=== PATIENT | male | born 1960 | race Caucasian/White ===

== ENCOUNTER → 2017-08-13 09:25 | Outpatient (CLI) | payer BC, SELFPAY | PROVIDERS: Family Provider Family Medicine; PCP Family Medicine; Visit Provider Family Medicine | DX: A09 Infectious gastroenteritis and colitis, unspecified (principal) | CPT/HCPCS: 87506 ==

== ENCOUNTER → 2017-09-10 08:48 | Outpatient (CLI) | payer BC, SELFPAY ==
[2017-09-10 10:23] LABS: Cholesterol 120 mg/dL (200); High Density Lipoprotein 43 mg/dL; PSA,Total - Annual Screen 1.34 ng/mL (0.00-4.00); Triglycerides 91 mg/dL; Very Low Density Lipoprotein 18 mg/dL (5-40)
== END ==
PROVIDERS: Family Provider Family Medicine; PCP Family Medicine; Visit Provider Family Medicine
DX: E78.00 Pure hypercholesterolemia, unspecified (principal); Z12.5 Encounter for screening for malignant neoplasm of prostate
CPT/HCPCS: 36415; 80061; 84153; G0103

== ENCOUNTER → 2018-10-09 08:04 | Outpatient (CLI) | payer BC, SELFPAY ==
[2017-09-14 14:00] VITALS: BMI 25.9
[2018-10-09 10:29] LABS: Anion Gap 4 (5-15); BUN 21 mg/dL (7-18); BUN/Creat Ratio 18.9 RATIO (10-20); Calcium,Total 8.6 mg/dL (8.5-10.1); Chloride 108 mmol/L (98-107); Cholesterol 121 mg/dL (200); Creatinine, Serum 1.11 mg/dL (0.70-1.30); EST Glomerular Filtration Rate 72 mL/min (>60); Est Glom Filt Rate - Afr Amer 87 mL/min (>60); Glucose 97 mg/dL (74-106); High Density Lipoprotein 42 mg/dL; Potassium 4.1 mmol/L (3.5-5.1); Sodium Level 139 mmol/L (136-145); Triglycerides 64 mg/dL; Very Low Density Lipoprotein 13 mg/dL (5-40)
== END ==
PROVIDERS: Family Provider Family Medicine; PCP Family Medicine; Referring Provider Family Medicine; Visit Provider Family Medicine
DX: I25.10 Atherosclerotic heart disease of native coronary artery without angina pectoris (principal); E78.00 Pure hypercholesterolemia, unspecified; Z12.5 Encounter for screening for malignant neoplasm of prostate
CPT/HCPCS: 36415; 80048; 80061; 84153; G0103

== ENCOUNTER → 2018-12-27 10:50 | Outpatient (CLI) | payer BC, SELFPAY ==
[2018-12-16 14:39] VITALS: BMI 26.4
--- NOTE | 2018-12-27 10:51 | STEWCON_ITS ---
Reason For Study: CAD Stress Results Protocol: Eric Protocol Maximum Predicted HR: 160 bpm Target HR: 136 bpm % Maximum Predicted HR: 83 % DurationHeart Rate Stage (mm:ss) (bpm) BP Comment Baseline 57 104/60No Chest Pain; Diluted Definity 3 ML Given Eric Protocol Stage I 3:00 76 118/60No Chest Pain Eric Protocol Stage II 3:00 97 126/62No Chest Pain Eric Protocol Stage III 3:00 116 134/60No Chest Pain Eric Protocol Stage IV 3:00 133 148/62No Chest Pain; Fatigue Recovery 80 104/60No Chest Pain Stress Duration: 12:00 mm:ss Maximum Stress HR: 133 bpm METS: 13 Baseline Echocardiogram Findings The estimated ejection fraction is 65 %. Stress Echo Wall motion Data Resting WM Intermediate WM Stress WM Resting Wall Motion Wall Motion Stress No regional wall motion No regional wall motion abnormalities noted. abnormalities noted. EKG Data The baseline ECG displays normal sinus rhythm. The patient exercised according to the regular Eric protocol for a total duration of 12:00. The maximum heart rate attained was 134 beats per minute. This was 83% of maximum predicted heart rate. The patient exercised into stage 5 of the Eric protocol. At peak exercise, upsloping ST changes only were noted, which did not meet the criteria for ischemia. No clinical angina was noted. No arrhythmias noted. Interpretation Summary The estimated ejection fraction is 65 %. Normal, adequate, treadmill echocardiogram. Negative for ischemia by EKG and echocardiographic criteria. No anginal symptoms noted. No arrhythmias noted. Appropriate blood pressure response to exercise. Above average exercise capacity for age. Decreased sensitivity due to poor echo windows requiring Definity agent. Final LVEF is 75%. Test terminated due to fatigue. No complications. The study was technically difficult. Contrast injection was performed. Ordering Physician: Nilson Rashid Referring Physician: Pedrito Ceballos Performed By: Romina Mcfadden, MAMADOU, RVT
== END ==
PROVIDERS: Family Provider Family Medicine; PCP Family Medicine; Referring Provider Internal Medicine Cardiovascular Disease; Visit Provider Internal Medicine Cardiovascular Disease
DX: I25.10 Atherosclerotic heart disease of native coronary artery without angina pectoris (principal); I25.5 Ischemic cardiomyopathy; E78.5 Hyperlipidemia, unspecified; I25.2 Old myocardial infarction; Z95.5 Presence of coronary angioplasty implant and graft
CPT/HCPCS: 93017; 93350; Q9957; A4216; C8928

== ENCOUNTER → 2019-01-10 12:56 | Outpatient (CLI) | payer BC, SELFPAY ==
[2018-12-16 14:39] VITALS: BMI 26.4
--- NOTE | 2019-01-10 12:58 | ECHOD_ITS ---
Reason For Study: CAD/ASHD Procedure This was a 2D Doppler, Color Flow transthoracic echocardiogram. Exam performed in department. Left Ventricle Normal size and thickness. The estimated ejection fraction is 65 %. Normal diastology for age. No regional wall motion abnormalities noted. Right Ventricle Mildly dilated right ventricle. Normal systolic function. Atria Normal left atrium. Normal right atrium. Normal atrial septum. Mitral Valve The mitral valve is structurally normal. No prolapse or stenosis seen. Tricuspid Valve Normal tricuspid valve. Unable to estimate RV systolic pressure due to insufficient tricuspid regurgitant envelope. Aortic Valve Trisinus/trileaflet aortic valve. Mild focal aortic valve thickening. Mild aortic stenosis. Peak aortic valve gradient 17 mmHg. Mean aortic valve gradient 7 mmHg. Calculated aortic valve area (continuity equation) is 2.3 cm2. Trivial aortic valve insufficiency. Pulmonic Valve Normal pulmonic valve. Great Vessels Normal aortic root. Normal arch. Normal inferior vena cava. Inferior vena cava collapse with sniff. Pericardium/Pleural No pericardial effusion. MMode/2D Measurements & Calculations LVIDd: 4.8 cm IVSd: 0.97 cm LVOT diam: 2.1 cm LVIDs: 2.6 cm LVPWd: 1.1 cm LVOT area: 3.6 cm2 RVDd: 3.9 cm FS: 46.5 % Ao root diam: 4.4 cm LAV(MOD-bp): 53.0 ml LA A4 area: 17.8 cm2 LA dimension: 3.7 cm LAV(MOD-bp) Indexed: 26.0 ml/m2 LAV(MOD-sp2): 56.3 ml LAV(MOD-sp4): 49.2 ml RA A4 area: 18.0 cm2 Time Measurements MV dec time: 0.29 sec Doppler Measurements & Calculations MV E max lio: 74.0 cm/sec Lat Peak E' Lio: 11.6 cm/sec Med Peak E' Lio: 8.6 cm/sec MV A max lio: 60.4 cm/sec E/E' lat: 6.4 E/E' med: 8.6 MV E/A: 1.2 MV V2 max: 80.9 cm/sec MV P1/2t max lio: 83.8 cm/sec Ao V2 max: 206.7 cm/sec MV max P.6 mmHg MV P1/2t: 95.9 msec Ao max P.1 mmHg MV V2 mean: 45.2 cm/sec MV dec slope: 255.8 cm/sec2 Ao V2 mean: 126.0 cm/sec MV mean P.93 mmHg Ao mean P.4 mmHg MV V2 VTI: 27.0 cm MVA(P1/2t): 2.3 cm2 Ao V2 VTI: 38.9 cm MVA(VTI): 3.4 cm2 SAMMIE(I,D): 2.3 cm2 SAMMIE(V,D): 1.8 cm2 AI max lio: 421.2 cm/sec LV V1 max: 101.6 cm/sec SV(LVOT): 90.7 ml AI max P.0 mmHg LV V1 max P.1 mmHg LV V1 mean P.3 mmHg AI dec slope: 135.6 cm/sec2 LV V1 mean: 71.5 cm/sec AI P1/2t: 909.7 msec LV V1 VTI: 25.1 cm PA V2 max: 97.1 cm/sec Interpretation Summary The estimated ejection fraction is 65 %. Normal diastology for age. Mildly dilated right ventricle. Unable to estimate RV systolic pressure due to insufficient tricuspid regurgitant envelope. Mild focal aortic valve thickening. Mild aortic stenosis. Trivial aortic valve insufficiency. Compared to echo report dated 01/01/2017, no appreciable changes noted. Ordering Physician: Nilson Rashid Referring Physician: Pedrito Ceballos Performed By: James Paiz RCS
== END ==
PROVIDERS: Family Provider Family Medicine; PCP Family Medicine; Referring Provider Internal Medicine Cardiovascular Disease; Visit Provider Internal Medicine Cardiovascular Disease
DX: I25.10 Atherosclerotic heart disease of native coronary artery without angina pectoris (principal); I25.5 Ischemic cardiomyopathy; I25.2 Old myocardial infarction; Z95.5 Presence of coronary angioplasty implant and graft
CPT/HCPCS: 93306

== ENCOUNTER → 2019-10-16 08:11 | Outpatient (CLI) | payer BC, SELFPAY ==
[2018-12-16 14:39] VITALS: BMI 26.4
[2019-10-16 10:25] LABS: ALB/GLOB Ratio 1.2 RATIO (0.9-2.4); AST(SGOT) 28 U/L (15-37); Alanine Aminotransfer ALT/SGPT 33 U/L (16-61); Albumin, Serum 3.9 g/dL (3.2-5.0); Alkaline Phosphatase 68 U/L (45-117); Anion Gap 6 (5-15); BUN 23 mg/dL (7-18); BUN/Creat Ratio 22.5 RATIO (10-20); Chloride 105 mmol/L (98-107); Cholesterol 131 mg/dL (200); Creatinine, Serum 1.02 mg/dL (0.70-1.30); EST Glomerular Filtration Rate 79 mL/min (>60); Est Glom Filt Rate - Afr Amer 95 mL/min (>60); Globulin 3.2 g/dL (2.2-4.2); Glucose 90 mg/dL (74-106); High Density Lipoprotein 43 mg/dL; PSA,Total - Annual Screen 1.71 ng/mL (0.00-4.00); Protein, Total 7.1 g/dL (6.4-8.2); Sodium Level 141 mmol/L (136-145); Triglycerides 66 mg/dL; Very Low Density Lipoprotein 13 mg/dL (5-40)
== END ==
PROVIDERS: PCP Family Medicine; Referring Provider Family Medicine; Visit Provider Family Medicine
DX: I25.10 Atherosclerotic heart disease of native coronary artery without angina pectoris (principal); Z12.5 Encounter for screening for malignant neoplasm of prostate
CPT/HCPCS: 36415; 80053; 80061; 84153; G0103

== ENCOUNTER → 2020-04-29 15:08 | Outpatient (CLI) | payer BC, SELFPAY ==
--- NOTE | 2020-04-29 15:11 | RAD_ITS ---
STUDY: X-RAY - LUMBAR SPINE REASON FOR EXAM: Male, 60 years old. recent right leg numbness TECHNIQUE: 5 view(s) of the lumbar spine were obtained. COMPARISON: Prior thoracic spine of 09/04/2016 FINDINGS: Normal lumbar lordosis. Slight dextrocurvature. There is a normal alignment of the vertebrae. 12 thoracic vertebral bodies and 12 normal ribs as demonstrated on prior imaging. Rudimentary ribs at L1. 5 normal lumbar vertebral bodies and a transitional first sacral segment. The S1-S2 disc is rudimentary. Negative for fracture, osteolytic or blastic bone lesion. Mild disc narrowing and mild disc narrowing at L2-3 and L3-4. Moderate disc narrowing at L4-5 and L5-S1. Facet arthrosis primarily at L4-5 and L5-S1. Small age type calcifications to the left of the upper lumbar spine. RAD/L/S Spine Min 4 Views IMPRESSION: Slight dextrocurvature of the lumbar spine with otherwise normal alignment. Negative for fracture, osteolytic or blastic bone lesion. Degenerative disc and joint changes as stated above which are moderately advanced at L4-5 and L5-S1. Facet arthrosis primarily at the same levels. Few small eggshell calcifications to the left of the upper lumbar spine of uncertain etiology. These are not typical of renal stones. Possibly vascular, mesenteric or lymph node calcifications. Electronically Signed: Lashawn Camarillo MD at 0:00 EST , Service support ,
== END ==
PROVIDERS: PCP Family Medicine; Referring Provider Family Medicine; Visit Provider Family Medicine
DX: M54.40 Lumbago with sciatica, unspecified side (principal)
CPT/HCPCS: 72110

== ENCOUNTER 2020-05-19 08:30 | Outpatient (RCR) | payer BC, SELFPAY ==
--- NOTE | 2020-05-04 14:00 | HP.PTEVAL ---
Patient's Visit Information WATSON RODRIGUEZ is a 60 year old M referred to Physical Therapy by Dr. Tito Hill MD with a diagnosis of R leg numbness and weakness. Date of Evaluation: 05/04/20 Physical Therapist: Rene Hurtado, DPT, OCS, CSCS - Visit Plan Frequency: 2x /Week Duration: 4-6 Weeks Plan: 2x/week for 4-6 weeks for Charity as helpful and core strength. Monitor r DF and HS strength for improvmeents as wella s LB ROM and subjective. May need to modify HEP to more flexion depending on progress with HEP and steriods. May need MRI if myeopathies not improved in two weeks. - Subjective About two weeks ago had massage and was super aggressive to upper back. The next day he moved some stones shovelling. 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 That evening he got out of chair and R leg was numb and unable to WB very well. Hobbled around the kitchen. No pain, just numb. Went to chiropractor Sunday and Dr. Hill on Sunday. He did evaluation and found R leg weakness. Doctor thought bulging disc and pinched nerve with DDD. X ray showed mild DD. Had spina Bifida [place] when he was little but no problems just has to be careful with lifting over his life. 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 Now has to be conscious of R LE as he feels like he has a dropfoot. No falls but has to pull R foot forward at times. 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 No time off . No problems prior to this issue. Works out at 3-4x/week and does cardio 30 minutes and has a adjunct trainer program for core and general strength. Sleep is OK. Not much pain. Numbness is improved from initial insult which lasted into night and was better the next day. Rates the leg at 8/10 first night and 5/10 now not pain but strength and normal feeling. - Objective Walks I and trasnfers without difficulty. L?S AROM ext max limited stiff, not painful, L SB slightly painful, R SB OK, Flexio is stiff in LB but near full. refelxes 3/3 R and clonus B in achilles 2/3 L. patella 2/3. R DF 46# and L is 80#. hip flexion 60 L and 51 R#. HS R 43# and 65 L. PPU seem to improve LB ext quickly, no symptoms changed today. - Goals Goal 1:: Full l/S AROM without pain Goal Time Frame: 4-6 Weeks Goal 2:: Pt show improved strength in R LE by 15 # in DF and HSC to make walking easier. Goal Time Frame: 4-6 Weeks Goal 3:: Pt feel 75% back to normal in R LE Goal Time Frame: 4-6 Weeks Goal 4:: I appropr HEP to minimize future problems Goal Time Frame: 4-6 Weeks - Rehabilitation Potential Physical Therapy Diagnosis: LB radiculopathy with weakness and sensation deficiits. Rehabilitation Potential: Fair - Anticipated Interventions Patient/Client Instruction: Educate patient on: Condition, Plan of Care For the Purpose of:: To decrease pain, To improve muscle performance and motor function Therapeutic Exercise to Include: Strength training, Flexibilty training, Dynamic Lumbar Stabilization, Charity Exercises For the Purpose of:: To decrease pain, To improve muscle performance and motor function, To increase tolerance to activity/condition/position, To improve ability of physical actions for home/community/work/leisure, To improve gait and locomotor functions Manual Therapy Techniques to Include: Mobilization For the Purpose of:: To increase ROM Thank you for the opportunity to evaluate your patient. For Medicare and Medicare HMO plans, please review the plan of care and approve it. It will need to be FAXED BACK to us at [phone] for Medicare purposes. For Medicare only, by signing this I certify the plan of care. Please let me know if there are questions or concerns regarding this plan of care. Physician Signature: Date:
--- NOTE | 2020-05-19 08:58 | HP.PTREVAL_ITS ---
Dr. Tito Hill MD, It has been my pleasure to treat WATSON RODRIGUEZ over the last 4 visits for R leg numbness and weakness. Please see the progress note below for an update on the physical therapy plan of care! Subjective: Been doing exercises. Not seeing improvements in strength. No real pain or discomfort. Steroid really helped pain and it has not been an issue. Still has numbness which is worse at night but constant overall. Pressups did not help and has been doing neutral spine strength whcijonathan is not heping the strength. Since steroid ended feels like he needs to be more conscious of R Leg walking adn lifting leg going up steps. Objective/Function: 38.5 R HS strength. 51 DF# R. These are still very weak c ompared to the left side adn no generally improved from day one. LB AROM ext is still stiff but not painful, flexion and SB are fulla dn painfree. Walking is normal but feels awkward to him with the numbness in R medial leg and need to focus on R LE for strength purposes. Recommend back to doctor for further evaluation Plan Plan: Pt to schedule with doctor for further evaluation/next medical step. Will hod chart open and pt to call after doctor visit in case therapy included in next step. Therapist recommend MRI to delineate nerve condition for what it is worth. Pt scheduled with doctor today. Goals Goal 1:: Full l/S AROM without pain Goal Time Frame: 4-6 Weeks Goal Progress: Goal Met Goal 2:: Pt show improved strength in R LE by 15 # in DF and HSC to make walking easier. Goal Time Frame: 4-6 Weeks Goal Progress: Not Progressing Goal 3:: Pt feel 75% back to normal in R LE Goal Time Frame: 4-6 Weeks Goal Progress: Not Progressing Goal 4:: I appropr HEP to minimize future problems Goal Time Frame: 4-6 Weeks Goal Progress: NS strength Anticipated Interventions Patient/Client Instruction: Educate patient on: Condition, Plan of Care For the Purpose of:: To decrease pain, To improve muscle performance and motor function Therapeutic Exercise to Include: Strength training, Flexibilty training, Dynamic Lumbar Stabilization, Bandar Exercises For the Purpose of:: To decrease pain, To improve muscle performance and motor function, To increase tolerance to activity/condition/position, To improve ability of physical actions for home/community/work/leisure, To improve gait and locomotor functions Manual Therapy Techniques to Include: Mobilization For the Purpose of:: To increase ROM Please do not hesitate to contact me at [phone] by phone or if you have questions or concerns regarding this new plan of care! Sincerely, Rene Hurtado, DPT, OCS, CSCS
--- NOTE | 2020-07-15 15:29 | HP.PTDCNRP_ITS ---
WATSON RODRIGUEZ was seen in my office for initial evaluation on 05/04/20. The following Plan of Care was established for this patient: Initial Frequency: 2x /Week Initial Duration: 4-6 Weeks Patient/Client Instruction: Educate patient on: Condition, Plan of Care For the Purpose of:: To decrease pain, To improve muscle performance and motor function Therapeutic Exercise to Include: Strength training, Flexibilty training, Dynamic Lumbar Stabilization, Bandar Exercises For the Purpose of:: To decrease pain, To improve muscle performance and motor function, To increase tolerance to activity/condition/position, To improve abili ty of physical actions for home/community/work/leisure, To improve gait and locomotor functions Manual Therapy Techniques to Include: Mobilization For the Purpose of:: To increase ROM This patient was last seen in our office 05/19/20. Pertinent comments regarding their Physical therapy will appear below: Pt seen 4 visits of POC and was not progressing appropriately. Was sent back to doctor for further evaluation. Was to call after that visit if needed further therapy. at this point, it has been about two months and I will discontinue due to nonattendance. At this point I will be discontinuing this patient from physical therapy. I would be happy to see this patient again in the future if found appropriate by the physician. Thank you! Rene Hurtado, DPT, OCS, CSCS
== END 2020-05-19 19:00 | disposition home or self-care (01) ==
LOC: PT 08:30
PROVIDERS: PCP Family Medicine; Referring Provider Family Medicine; Visit Provider Family Medicine
DX: R29.898 Other symptoms and signs involving the musculoskeletal system (principal); M21.371 Foot drop, right foot
CPT/HCPCS: 97110; 97162; 97164

== ENCOUNTER → 2020-05-24 11:51 | Outpatient (CLI) | payer BC, SELFPAY ==
--- NOTE | 2020-05-24 11:56 | MRI_ITS ---
STUDY: MRI LUMBAR SPINE WITHOUT CONTRAST REASON FOR EXAM: Male, 60 years old. Lumbago with sciatica -- pain low back and rt leg since mid april, shoveling injury TECHNIQUE: Standardized fat and water weighted pulse sequences were obtained in the sagittal and axial planes. COMPARISON: X-ray 04/29/2020. FINDINGS: There is a transitional lumbosacral vertebral body, termed L5 for this examination. T12-L1: Normal endplates. Disc dehydration. Normal bilateral facet joints. Normal central canal and bilateral lateral recesses. Normal bilateral intervertebral neural foramina. Normal lumbar lordosis. There is no substantial scoliosis. Normal conus medullaris that terminates at the T12 level. L1-2: Normal endplates. Disc dehydration. Normal bilateral facet joints. Normal central canal and bilateral lateral recesses. Normal bilateral intervertebral neural foramina. L2-3: Normal endplates. Disc dehydration. Normal bilateral facet joints. Normal central canal and bilateral lateral recesses. Normal bilateral intervertebral neural foramina. L3-4: Normal endplates. Disc dehydration. Moderate disc space narrowing. Normal bilateral facet joints. Normal central canal and bilateral lateral recesses. Normal bilateral intervertebral neural foramina. L4-5: Normal endplates. Disc dehydration. Moderate disc space narrowing. Mild, noncompressive spondylotic bar. Normal bilateral facet joints. Normal central canal and bilateral lateral recesses. Mild foraminal encroachment due to spurring. L5-S1: Normal endplates. Transitional L5 vertebral body with hypoplastic disc space. Normal bilateral facet joints. Normal central canal and bilateral lateral recesses. Normal bilateral intervertebral neural foramina. Severe left renal atrophy. Normal visualized sacral ala. Normal visualized paraspinous soft tissue structures. MRI/Spine Lumbar (Routine) IMPRESSION: 1. Transitional lumbosacral vertebral body termed L5. Plain film correlation is recommended as part of any surgical planning. 2. Multilevel degenerative disc changes. Additional degenerative changes are detailed above. 3. Marked left renal atrophy. Electronically Signed: Ayanna Romero MD at 20:38 EST Tel , Service support ,
== END ==
PROVIDERS: PCP Family Medicine; Referring Provider Family Medicine; Visit Provider Family Medicine
DX: M54.40 Lumbago with sciatica, unspecified side (principal)
CPT/HCPCS: 72148

== ENCOUNTER 2020-07-27 03:23 | Emergency (ER) | payer BC, SELFPAY ==
[2020-07-27 03:24] VITALS: BP 116/81; PULSE 60; RESP 17; TEMP 36.3; O2SAT 97; BMI 26.4
--- NOTE | 2020-07-27 03:53 | EKG12_ITS ---
Test Reason : DYSRHYTHMIA Blood Pressure : / mmHG Vent. Rate : 055 BPM Atrial Rate : 055 BPM P-R Int : 158 ms QRS Dur : 086 ms QT Int : 424 ms P-R-T Axes : 066 021 051 degrees QTc Int : 405 ms Sinus bradycardia Otherwise normal ECG Confirmed by ABDIFATAH HAQUE, JONATHAN ([id number]), field map editor MEHRDAD VINSON ([id number]) on 07/29/2020 12:52:41 PM Referred By: HILL Confirmed By:JONATHAN GARDINER MD
--- NOTE | 2020-07-27 03:53 | RAD_ITS ---
STUDY: X-RAY CHEST REASON FOR EXAM: Male, 60 years old. tia TECHNIQUE: Single AP portable view of the chest. COMPARISON: None. FINDINGS: The lungs are clear and expanded. There is no demonstrated pleural abnormality. Normal size heart. Normal mediastinum and keshia. Normal visualized pulmonary arteries. Normal visualized aortic arch and descending thoracic aorta. Normal visualized thoracic spine. Normal visualized ribs, clavicles, and shoulders. There is no demonstrated abnormality of the visualized soft tissue structures of the upper abdomen. RAD/Chest 1 View (Portable) IMPRESSION: Normal x-ray examination of the chest. Electronically Signed: Claudia Gould MD at 4:15 EDT Tel , Service support ,
--- NOTE | 2020-07-27 03:54 | CT_ITS ---
STUDY: CTA HEAD AND NECK WITH CONTRAST REASON FOR EXAM: Male, 60 years old. TIA RADIATION DOSAGE (If Supplied By Facility): CTDIvol = ( 39.07 ) mGy, DLP = ( 1676.58 ) mGycm TECHNIQUE: CT angiography was performed with a multi-detector CT scanner. Data acquisition was obtained from the skull base through the vertex following intravenous administration of 100ML ISOVUE 370. MIP images were reconstructed from the axial data set. Post-processing of the angiographic images was performed, with multiplanar reformation and 3D reconstruction. Individualized dose optimization techniques were used for this CT. COMPARISON: No relevant priors. FINDINGS: Normal bilateral petrous carotid arteries. Normal right cavernous carotid artery with a normal supraclinoid bifurcation. Normal left cavernous carotid artery with a normal supraclinoid bifurcation. Normal right A1 segments of the anterior cerebral artery. Normal left A1 segments of the anterior cerebral artery. Normal intact anterior communicating artery (ACOM). Normal bilateral A2 segments of the anterior cerebral arteries. Normal right M1 and M2 segments of the middle cerebral arteries, with a normal M1 bifurcation. Normal left M1 and M2 segments of the middle cerebral arteries, with a normal M1 bifurcation. There is non-visualization of the right posterior communicating artery (PCOM). There is non-visualization of the left posterior communicating artery (PCOM). Normal bilateral vertebral arteries. Normal basilar artery with a normal basilar bifurcation. The visualized bilateral superior cerebellar (SCA) arteries are normal. Normal bilateral P1, P2 and visualized P3 segments of the posterior cerebral arteries. There is no demonstrated aneurysm of the [place] of [place]. There is no demonstrated abnormality of the visualized brain. AORTIC ARCH: Normal visualized aortic arch. Normal origins of the brachiocephalic, left common carotid, and left subclavian arteries. RIGHT CAROTID ARTERIES: Normal right common carotid artery (CCA). There is mild atherosclerotic plaque formation with minimal narrowing of the right carotid bulb. Normal origin of the right internal carotid (ICA) artery without a hemodynamically significant stenosis. Normal visualized cervical portion of the right internal carotid artery. Normal origin of the right external carotid artery (ECA). LEFT CAROTID ARTERIES: Normal left common carotid artery (CCA). There is mild atherosclerotic plaque formation with minimal narrowing of the left carotid bulb. Normal origin of the left internal carotid (ICA) artery without a hemodynamically significant stenosis. Normal visualized cervical portion of the left internal carotid artery. Normal origin of the left external carotid artery (ECA). VERTEBRAL ARTERIES: Normal bilateral vertebral arteries. CT/CTA Head AND Neck W/ Contrast IMPRESSION: No evidence of occlusion or significant stenosis in the arteries of Head and neck . Electronically Signed: Claudia Gould MD at 5:47 EDT Tel , Service support ,
[2020-07-27 04:01] LABS: Absolute Lymphocyte Count 2.62 X10^3/uL (0.83-4.51); Basophil# 0.03 X10^3/uL; Basophil% 0.5 % (0-1); Eosinophil# 0.13 X10^3/uL; Hematocrit 42.9 % (40-54); Hemoglobin 15.1 g/dL (13.0-16.5); Lymphocyte # 2.62 X10^3/ul (4.0); Lymphocyte % 39.6 % (19-41); Mean Corp Hgb Conc 35.2 g/dL (32-36); Mean Corpuscular Hgb 31.3 pg (27.0-32.0); Mean Platelet Vol. 8.9 fl (6.2-12.0); Monocyte# 0.83 X10^3/uL; Monocyte% 12.5 % (0-10); NRBC Flagged by Analyzer 0 % (0-5); Neutrophil # 2.99 X10^3/uL (2.7-7.7); Neutrophil % 45.1 % (47-70); Platelet Count 211 K/mm3 (150-450); RBC Distribution Width CV 11.5 % (11.6-14.6); RBC Distribution Width SD 37.1 fl (35.1-43.9); Red Blood Count 4.82 M/mm3 (4.6-6.2); White Blood Count 6.6 K/mm3 (4.4-11.0)
[2020-07-27 04:06] LABS: International Normalized Ratio 1.1; Partial Thromboplast Time 22.7 Seconds (24.1-36.2); Prothrombin Time (Protime)PT. 14.1 SECONDS (11.7-14.9)
[2020-07-27 04:15] LABS: ALB/GLOB Ratio 1.3 RATIO (0.9-2.4); AST(SGOT) 23 U/L (15-37); Alanine Aminotransfer ALT/SGPT 33 U/L (16-61); Albumin, Serum 3.9 g/dL (3.2-5.0); Alkaline Phosphatase 71 U/L (45-117); Anion Gap 6 (5-15); BUN 22 mg/dL (7-18); BUN/Creat Ratio 19.1 RATIO (10-20); Calcium,Total 9.1 mg/dL (8.5-10.1); Chloride 105 mmol/L (98-107); Creatinine, Serum 1.15 mg/dL (0.70-1.30); EST Glomerular Filtration Rate 68 mL/min (>60); Est Glom Filt Rate - Afr Amer 83 mL/min (>60); Estimated Creatinine Clearance 70.93 ml/min; Globulin 2.9 g/dL (2.2-4.2); Glucose 144 mg/dL (74-106); Magnesium 2.1 mg/dL (1.6-2.6); Potassium 3.3 mmol/L (3.5-5.1); Protein, Total 6.8 g/dL (6.4-8.2); Sodium Level 137 mmol/L (136-145)
--- NOTE | 2020-07-27 04:32 | ED.DCSUM_ITS ---
History of Present Illness Informant: Patient, Family Narrative: 60-year-old male states that he was asleep and he woke to find that his right leg was bent and was having a seizure-like activity. He states that after about a minute he loosened up and then felt profoundly weak. He has been having some problems with his leg over the past several months and has not had an MRI in physical therapy and recently saw neurology who felt that this could possibly be related to a lacunar stroke. He is scheduled for an MRI and MRA in about a week. He states at the time of my evaluation his leg feels like it has been for the past several months. After the leg seem to relax he was unable to bear weight on it so he was crawling his way to the bathroom when he developed a burning sensation in the right side of his neck. He then developed paresthesias and weakness of the fingers and arm on the right side. Those symptoms have also resolved. He notes that today he went to [employer] and worked out which she has not been able to do for the past couple of months. He states he actually felt really good until he woke with the symptoms. <Nilson Foreman - Last Filed: 07/27/20 08:31> <Trent Escobar - Last Filed: 07/27/20 12:03> Chief Complaint: Numb/Ting - Past Medical History (1) Anteroseptal myocardial infarction Status: Chronic (2) Hyperlipemia Status: Chronic (3) Nonrheumatic mitral (valve) prolapse Status: Chronic (4) Presence of stent in coronary artery Status: Chronic Comment: PTCA/BON of prox to mid LAD 3.5 x 22 mm Resolute 01/24 (5) Ischemic cardiomyopathy Status: Resolved <Nilson Foreman - Last Filed: 07/27/20 08:31> Past Medical History Surgical History: noncontributory, angioplasty Lives: Spouse/ Significant Other Smoking Status: Never smoker Drugs: None <Nilson Foreman - Last Filed: 07/27/20 08:31> <Trent Escobar - Last Filed: 07/27/20 12:03> - Allergies and Home Meds Allergies/Adverse Reactions: Allergies atorvastatin [From Lipitor] Adverse Reaction (Verified 07/27/20 03:28) Other muscle aches Primary Care Physician: Tito Hill MD [Primary Care Provider] - Review of Systems General: Denies: Chills, Fever, Sweats Eyes: Denies: Visual changes - bilaterally, Diplopia ENT: Denies: Rhinorrhea, Sore throat Cardiovascular: Denies: Chest pain, Palpitations Respiratory: Denies: Dyspnea, Cough, Dyspnea on exertion Gastrointestinal: Denies: Abdominal pain, Nausea, Vomiting, Diarrhea, Melena, Hematochezia Genitourinary: Denies: Dysuria, Hematuria, Frequency Musculoskeletal: Reports: Neck pain. Denies: Back pain, Extremity Pain Skin: Denies: Rash, Wounds Neurological: Reports: Weakness, Parasthesia. Denies: Headache, Numbness <Nilson Foreman - Last Filed: 07/27/20 08:31> Physical Exam Vital Signs/Narrative: Vital Signs Temp Pulse Resp BP Pulse Ox 07/27/20 03:24 97.4 F L 60 17 116/81 H 97 Inital Vital Signs reviewed: Yes General: Well nourished, Well developed, No Acute Distress Head: Normocephalic, Atraumatic Eyes: Perrl, EOMI ENT: Moist mucous membranes, No rhinorrhea Neck: Supple, Nontender Cardiovascular: Regular rate, Regular rhythm, No murmurs Respiratory: No distress, CTA bilaterally, Chest nontender Abdomen: Soft, Nontender, Nondistended, Normal bowel sounds Back: Nontender, Normal Inspection Extremities: Nontender, No edema Skin: Normal color, No rash Neurological: Alert, Oriented x3, Cranial nerves II-XII grossly intact, Normal Strength, Normal Sensation, - - NIH 0 Psychological: Normal affect, Normal Mood <Nilson Foreman - Last Filed: 07/27/20 08:31> Vital Signs/Narrative: Vital Signs Pulse Resp BP Pulse Ox 07/27/20 10:28 60 15 123/73 H 94 07/27/20 08:47 63 16 129/77 H 95 <Escobar,Trent - Last Filed: 07/27/20 12:03> Diagnostic/Tx/Re-eval Laboratory Last Values WBC 6.6 K/mm3 (4.4-11.0) 07/27/20 03:10 RBC 4.82 M/mm3 (4.6-6.2) 07/27/20 03:10 Hgb 15.1 g/dL (13.0-16.5) 07/27/20 03:10 Hct 42.9 % (40-54) 07/27/20 03:10 MCV 89.0 fL (80-94) 07/27/20 03:10 MCH 31.3 pg (27.0-32.0) 07/27/20 03:10 MCHC 35.2 g/dL (32-36) 07/27/20 03:10 RDW Std Deviation 37.1 fl (35.1-43.9) 07/27/20 03:10 RDW Coeff of Ellie 11.5 % (11.6-14.6) L 07/27/20 03:10 Plt Count 211 K/mm3 (150-450) 07/27/20 03:10 MPV 8.9 fl (6.2-12.0) 07/27/20 03:10 Immature Gran % (Auto) 0.300 % (0.0-0.9) 07/27/20 03:10 Neut % (Auto) 45.1 % (47-70) L 07/27/20 03:10 Lymph % (Auto) 39.6 % (19-41) 07/27/20 03:10 [place] % (Auto) 12.5 % (0-10) H 07/27/20 03:10 Eos % (Auto) 2.0 % (0-5) 07/27/20 03:10 Baso % (Auto) 0.5 % (0-1) 07/27/20 03:10 Absolute Neuts (auto) 3.0 X10^3/uL (2.0-7.7) 07/27/20 03:10 Absolute Lymphs (auto) 2.62 X10^3/uL (0.83-4.51) 07/27/20 03:10 Nucleated RBC % 0 % (0-5) 07/27/20 03:10 PT 14.1 SECONDS (11.7-14.9) 07/27/20 03:10 INR 1.1 07/27/20 03:10 APTT 22.7 Seconds (24.1-36.2) L 07/27/20 03:10 Sodium 137 mmol/L (136-145) 07/27/20 03:10 Potassium 3.3 mmol/L (3.5-5.1) L 07/27/20 03:10 Chloride 105 mmol/L (98-107) 07/27/20 03:10 Carbon Dioxide 26.0 mmol/L (21.0-32.0) 07/27/20 03:10 Anion Gap 6 (5-15) 07/27/20 03:10 BUN 22 mg/dL (7-18) H 07/27/20 03:10 Creatinine 1.15 mg/dL (0.70-1.30) 07/27/20 03:10 Estim Creat Clear Calc 70.93 ml/min 07/27/20 03:10 Est GFR (MDRD) Af Amer 83 mL/min (>60) 07/27/20 03:10 Est GFR (MDRD) Non-Af 68 mL/min (>60) 07/27/20 03:10 BUN/Creatinine Ratio 19.1 RATIO (10-20) 07/27/20 03:10 Glucose 144 mg/dL (74-106) H 07/27/20 03:10 Calcium 9.1 mg/dL (8.5-10.1) 07/27/20 03:10 Magnesium 2.1 mg/dL (1.6-2.6) 07/27/20 03:10 Total Bilirubin 0.70 mg/dL (0.20-1.00) 07/27/20 03:10 AST 23 U/L (15-37) 07/27/20 03:10 ALT 33 U/L (16-61) 07/27/20 03:10 Alkaline Phosphatase 71 U/L (45-117) 07/27/20 03:10 Total Protein 6.8 g/dL (6.4-8.2) 07/27/20 03:10 Albumin 3.9 g/dL (3.2-5.0) 07/27/20 03:10 Globulin 2.9 g/dL (2.2-4.2) 07/27/20 03:10 Albumin/Globulin Ratio 1.3 RATIO (0.9-2.4) 07/27/20 03:10 Clinical Impression(s) from Imaging Studies Chest X-Ray 07/27/20 03:53 IMPRESSION: Normal x-ray examination of the chest. Electronically Signed: Claudia Gould MD at 4:15 EDT Tel , Service support , Head/Neck CTA 07/27/20 03:54 IMPRESSION: No evidence of occlusion or significant stenosis in the arteries of Head and neck . Electronically Signed: Claudia Gould MD at 5:47 EDT Tel , Service support , ADDENDUM: 07/27/20 0716 - EKG Initial EKG Interpretation: Sinus Bradycardia - EKG demonstrates a sinus bradycardia at a rate of 55 bpm. No concerning features of ACS or ectopy noted - Medical Decision Making Laboratory studies show a potassium of 3.3. He will receive a dose of potassium. Patient has been up walking to the bathroom. He has achieved back to his baseline. CTA of the head and neck was obtained. I asked for a addendum which did add to the patient's ED course time. This did not demonstrate any evidence or occlusion of significant stenosis in the arteries of the head and neck. There is a homogeneous enhancing extra-axial mass in the interhemispheric fissure most likely a meningioma which is measuring 4.2 x 4 x 3cm. The patient was discussed with his neurologist Dr. Lakisha Junior. As the patient is here an MRI has the availability to work him in we are going to obtain the MRI with and without contrast and have the images sent to Dr. Junior to review and she will call us back. Time care the [facility]. Case was reviewed at the bedside with the patient and his . <Nilson Foreman - Last Filed: 07/27/20 08:31> - Medical Decision Making MRI was ordered and completed. MRI reveals a hemangioma. The images were sent to patient's [facility] neurologist. Suspect disposition will be disc harged with outpatient follow-up. MRI/Brain W/WO Contrast IMPRESSION: 4.0 x 4.5 cm of the meningioma arising from the posterior superior aspect of the falx and overlying superior dura with mass effect on the posterior left parietal lobe but no vasogenic edema. Electronically Signed: Aubrey Madrid MD at 10:42 EDT Tel , Service support , Patient's [facility] neurologist was paged twice. There is been no call backs. We have been made aware that she is in clinic. Since this is a stable lesion not requiring emergent intervention he was discharged to home to follow-up with his neurologist. <Trent Escobar - Last Filed: 07/27/20 12:03> ED Disposition <Nilson Foreman - Last Filed: 07/27/20 08:31> <Trent Escobar - Last Filed: 07/27/20 12:03> - Plan for ED Patient: Disposition: Home or Assisted Living Diagnosis: Hypokalemia, Meningioma Instructions: ED Brain Tumor, ED Hypokalemia Prescriptions: Potassium Chloride Oral Tablet [K-Dur] 20 meq PO DAILY #5 tab Prescription Printed Referrals: Tito Hill MD [Primary Care Provider] - Additional Instructions: Please follow-up with your neurologist
[2020-07-27 04:37] VITALS: BP 104/87; PULSE 58; RESP 15; O2SAT 97
[2020-07-27 06:00] VITALS: BP 112/75; PULSE 61; RESP 16; O2SAT 97
--- NOTE | 2020-07-27 07:53 | ED.RN ---
updated pt and that we are waiting on neuro dr from [facility] to call back
--- NOTE | 2020-07-27 08:30 | MRI_ITS ---
STUDY: MRI BRAIN WITH AND WITHOUT CONTRAST REASON FOR EXAM: Male, 60 years old. Brain Mass -- CT with ?meningioma. Pt was ?focal seizure of leg TECHNIQUE: Standardized multiplanar fat and water weighted pulse sequences were obtained. IV Yes YES was administered for the contrast portion of the examination. COMPARISON: CT earlier today FINDINGS: Normal size of the ventricles and extra-axial spaces for the patient''s age. Normal white matter tracts of the supratentorial brain. There is no evidence for recent intracranial ischemia or other cause of cytotoxic edema on diffusion weighted imaging (DWI). Normal T2* images of the brain without demonstrated susceptibility artifact. There is no demonstrated hemosiderin stain. Normal bilateral basal ganglia. Normal thalami. There is no extra-axial fluid accumulation. Normal flow voids within the major intracranial circulation suggesting patency by spin echo criteria. Normal venous enhancement. 4.0 x 4.5 cm oval isointense solidly enhancing mass arising from the posterior aspect of the left side of the falx with a broad dural attachment consistent with a meningioma. There is mass effect on the subjacent posterior left parietal lobe and to lesser extent the right parietal lobe but no vasogenic edema. Normal sella turcica, pituitary gland, infundibular stalk, optic chiasm and hypothalamus. Normal tectal plate and pineal gland. Normal midbrain, otilia and medulla. Normal cerebellum. Normal basal cisterns. Normal bilateral temporal bones. Normal bilateral internal auditory canals. No demonstrated orbital abnormality, within the constraints of a routine brain study. Normal visualized paranasal sinuses. Normal calvarium and skull base. Normal visualized soft tissue structures. Normal visualized upper cervical spine. MRI/Brain W/WO Contrast IMPRESSION: 4.0 x 4.5 cm of the meningioma arising from the posterior superior aspect of the falx and overlying superior dura with mass effect on the posterior left parietal lobe but no vasogenic edema. Electronically Signed: Aburey Madrid MD at 10:42 EDT Tel , Service support ,
--- NOTE | 2020-07-27 08:46 | ED.RN ---
Pt ambulated to bathroom. pt back and hooked up. asked for food for pt. pt and advised that we would find out
[2020-07-27 08:47] VITALS: BP 129/77; PULSE 63; RESP 16; O2SAT 95
[2020-07-27 10:28] VITALS: BP 123/73; PULSE 60; RESP 15; O2SAT 94
--- NOTE | 2020-07-27 10:41 | ED.RN ---
UPDATED PT AND THAT THE MRI WAS SENT TO [facility] FOR HIS NEUROLOGIST TO SEE. THEY ARE AWARE WE ARE WAITING FOR HIS NEUROLOGIST TO CALL WITH THE PLAN OF CARE. PT AND VERBALIZED UNDERSTANDING.
--- NOTE | 2020-07-27 11:47 | ED.RN ---
PT NEUROLOGY OFFICE CALLED TO VERIFY DR WAS ABLE TO SEE TTHE MRI. OFFICE STATED THEY WOULD SENT HER ANOTHER TEXT.
[2020-07-27 12:04] VITALS: BP 120/71; PULSE 64; RESP 17; O2SAT 95
== END 2020-07-27 12:33 | disposition home or self-care (01) ==
PROVIDERS: Emergency Provider Emergency Medicine; PCP Family Medicine
DX: D32.0 Benign neoplasm of cerebral meninges (principal); E87.6 Hypokalemia; R53.1 Weakness; M54.2 Cervicalgia; R00.1 Bradycardia, unspecified; I34.1 Nonrheumatic mitral (valve) prolapse; E78.5 Hyperlipidemia, unspecified; Z79.82 Long term (current) use of aspirin; Z79.899 Other long term (current) drug therapy; I25.2 Old myocardial infarction; Z95.5 Presence of coronary angioplasty implant and graft
CPT/HCPCS: 70496; 70498; 70553; 71045; 80053; 83735; 85025; 85610; 85730; 93005; 99284; A9575; Q9967; A4216

== ENCOUNTER 2020-09-27 17:12 | Emergency (ER) | payer BC, SELFPAY ==
[2020-09-27 17:15] VITALS: BP 125/69; PULSE 64; RESP 16; TEMP 36.6; O2SAT 97; BMI 26.6
[2020-09-27 17:25] VITALS: PULSE 65; RESP 14; O2SAT 98
--- NOTE | 2020-09-27 18:01 | EX.ED.DYSGE1 ---
HPI History of Present Illness Chief Complaint: Lower Extremity Injury Informant: patient and spouse/S.O. Narrative Narrative: 60-year-old male presenting for the evaluation of right leg swelling. Patient recently underwent gamma knife radiation for a benign brain mass as well as dexamethasone therapy which ended on September 12. His original presenting symptoms were right leg seizure like activity. Past several days he developed a heaviness of the right leg he could not explain. Despite the leg heaviness he has still been able to do his right leg physical therapy and get approximately 40 500-6000 steps in per day. Since Sunday he has noticed some swelling of the right leg. and him contact their doctors (Dr. Lundberg - radiation oncology at [facility]. They wanted him to get a duplex ultrasound to rule out DVT. Patient denies any urinary symptoms but does note that on an MRI of his back he had an atrophic right kidney which he did not know about. Patient also notes a new regimen of Keppra since the procedure. [facility] Medical History Anteroseptal myocardial infarction Atherosclerotic heart disease of [place] coronary artery without angina pectoris Brain tumor (benign) Hyperlipemia Ischemic cardiomyopathy Nonrheumatic mitral (valve) prolapse Seizures Home Medications aspirin 81 mg PO DAILY 02/02/17 [History Last Taken Unknown] multivitamin 1 ea PO DAILY 02/02/17 [History Last Taken Unknown] nitroglycerin 0.4 mg SL PRN PRN 02/02/17 [History Last Taken Unknown] sildenafil 50 mg tablet 50 mg PO QDAY PRN 04/14/17 [History Last Taken Unknown] clopidogrel 75 mg tablet 75 mg PO DAILY #90 tab 01/01/20 [Rx Last Taken Unknown] rosuvastatin 40 mg tablet See Rx Instructions .ROUTE .COMPLEX #90 tab 03/26/20 [Rx Last Taken Unknown] ropinirole 0.5 mg PO QHS PRN PRN 07/27/20 [History Last Taken Unknown] furosemide [Lasix] 40 mg PO DAILY #4 tab 09/27/20 [Rx Last Taken Unknown] levetiracetam [Keppra] 500 mg PO TID 09/27/20 [History Last Taken Unknown] Allergy/AdvReac Type Severity Reaction Status Date / Time atorvastatin [From Lipitor] AdvReac Other Verified 09/27/20 17:15 Family History Mother Macular degeneration Brother Myocardial infarction CAD (coronary artery disease) Surgical History History of colonoscopy History of hemorrhoidectomy Postsurgical percutaneous transluminal coronary angioplasty (PTCA) status Presence of stent in coronary artery (01/15/13) Social History Smoking Status: Never smoker second hand exposure: No alcohol intake: never substance use type: does not use caffeine: No what type of physical activity do you participate in: none seatbelt use: always ROS ROS ED Constitutional Constitutional ED: Denies chills or weight loss Eyes Eyes: Denies change in vision or diplopia ENT ENT ED: Denies ear pain, rhinorrhea or sore throat Cardiovascular Cardiovascular: Denies chest pain, orthopnea, palpitations or racing heartbeat Respiratory/Chest Respiratory/Chest: Denies cough, dyspnea or orthopnea Gastrointestinal Gastrointestinal: Denies abdominal pain, diarrhea, nausea or vomiting Genitourinary Genitourinary ED: Denies dysuria, hematuria or urinary frequency Musculoskeletal Musculoskeletal: Reports other Details: Right leg swelling ; Denies arthralgias or myalgias Integumentary Denies abscess or rash Neurologic Neurologic: Denies headache(s) or weakness Psychiatric Psychiatric: Denies anxiety, depression, suicidal ideation or suicidal thoughts Endocrine Endocrinology: Denies polydipsia, polyphagia or polyuria Allergic/Immunologic Allergic/Immunologic ED: Denies mouth swelling, tongue swelling or urticaria EXAM Physical Exam Const Vital Signs: 09/27/20 17:15 09/27/20 17:25 09/27/20 19:51 Temperature 97.8 F Temperature Source Temporal Pulse Rate 64 65 62 Respiratory Rate 16 14 16 Blood Pressure 125/69 H 117/81 H Blood Pressure Mean 87 93 Pulse Ox 97 98 96 Oxygen Delivery Method Room Air Room Air Room Air Positive well nourished and well developed General Appearance ED: well developed HEENT Reports normocephalic, head/scalp atraumatic and moist mucous membranes Eyes PERRL and EOMs intact bilaterally Neck no lymphadenopathy, supple and no JVD Resp normal respiratory effort and clear to auscultation bilaterally Cardio regular rate, regular rhythm and no murmurs GI normal to inspection, nondistended, normoactive bowel sounds and non-tender Palpation: soft Back/Spine no CVA tenderness and normal ROM Extremity normal to inspection Extremity Narrative: Patient has bilateral pitting pretibial edema though the right foot and ankle does seem slightly swollen compared to the left. Does not extend above the tibial tuberosity General Extremety ED: Yes edema General Extremity: edema Neuro oriented x3 and CN's II-XII intact bilaterally Sensorium / Orientation: alert Motor Exam: strength 5/5 throughout Psych mental status grossly normal Mood & Affect: Negative for depressed or tearful Skin no rashes or lesions noted and no wounds MDM MDM MDM Narrative Medical decision making narrative: Basic blood work obtained essentially unremarkable. Potassium noted be 5.4. He has been taking potassium supplementation. BNP is only 16. Creatinine is normal. Liver function normal. Duplex ultrasound is negative. Patient will be placed on low-dose Lasix for the next few days. Is to follow-up with his doctors. Lab Data Labs: Laboratory Results - last 24 hr 09/27/20 09/27/20 09/27/20 18:26 18:26 18:26 WBC 4.9 RBC 4.42 L Hgb 13.8 Hct 39.3 L MCV 88.9 MCH 31.2 MCHC 35.1 RDW Std Deviation 38.3 RDW Coeff of Ellie 11.9 Plt Count TNP MPV 9.7 Immature Gran % (Auto) 1.400 H Neut % (Auto) 64.1 Lymph % (Auto) 19.7 Barren % (Auto) 12.2 H Eos % (Auto) 2.0 Baso % (Auto) 0.6 Absolute Neuts (auto) 3.2 Absolute Lymphs (auto) 0.97 Nucleated RBC % 0 Differential Comment SCANNED Platelet Estimate ADEQUATE Sodium 134 L Potassium 5.4 H Chloride 105 Carbon Dioxide 26.0 Anion Gap 3 L BUN 14 Creatinine 0.94 Estim Creat Clear Calc 86.78 Est GFR (MDRD) Af Amer 105 Est GFR (MDRD) Non-Af 87 BUN/Creatinine Ratio 14.9 Glucose 89 Calcium 8.7 Total Bilirubin 0.50 AST 68 H ALT 36 Alkaline Phosphatase 62 Troponin I < 0.015 B-Natriuretic Peptide 16.4 Total Protein 6.8 Albumin 3.3 Globulin 3.5 Albumin/Globulin Ratio 0.9 Urine Color Urine Clarity Urine pH Ur Specific [place] Urine Protein Urine Glucose (UA) Urine Ketones Urine Occult Blood Urine Nitrite Urine Bilirubin Urine Urobilinogen Ur Leukocyte Esterase Urine RBC Urine WBC Ur Squamous Epith Cells Urine Bacteria Urine Mucus 09/27/20 20:05 WBC RBC Hgb Hct MCV MCH MCHC RDW Std Deviation RDW Coeff of Ellie Plt Count MPV Immature Gran % (Auto) Neut % (Auto) Lymph % (Auto) Barren % (Auto) Eos % (Auto) Baso % (Auto) Absolute Neuts (auto) Absolute Lymphs (auto) Nucleated RBC % Differential Comment Platelet Estimate Sodium Potassium Chloride Carbon Dioxide Anion Gap BUN Creatinine Estim Creat Clear Calc Est GFR (MDRD) Af Amer Est GFR (MDRD) Non-Af BUN/Creatinine Ratio Glucose Calcium Total Bilirubin AST ALT Alkaline Phosphatase Troponin I B-Natriuretic Peptide Total Protein Albumin Globulin Albumin/Globulin Ratio Urine Color Yellow Urine Clarity Clear Urine pH 7.0 Ur Specific [place] 1.010 Urine Protein Negative Urine Glucose (UA) Normal Urine Ketones Negative Urine Occult Blood Negative Urine Nitrite Negative Urine Bilirubin Negative Urine Urobilinogen Normal Ur Leukocyte Esterase Negative Urine RBC 0 SEEN Urine WBC 0 SEEN Ur Squamous Epith Cells 0 SEEN Urine Bacteria 0 SEEN Urine Mucus 0 SEEN Radiography Diagnostic Testing: Radiology Impression Venous Duplex 09/27/20 18:09 IMPRESSION: No sonographic evidence of deep venous thrombosis. Electronically Signed: Nishant Reese MD at 19:49 EDT Tel , Service support , Discharge Plan Triage Chief Complaint: Lower Extremity Injury ED Provider: Nilson Foreman Dx/Rx/DC Orders Clinical Impression: Lymphedema Instructions: ED Lymphedema Prescriptions: New furosemide [Lasix] 40 mg tablet 40 mg PO DAILY Qty: 4 RF: 0 No Action sildenafil [Viagra] 50 mg tablet 50 mg PO QDAY PRN (Reason: ERECTILE ) RF: 0 multivitamin 1 EACH tablet 1 ea PO DAILY RF: 0 aspirin 81 MG tablet 81 mg PO DAILY RF: 0 nitroglycerin 0.4 MG tablet, sublingual 0.4 mg SL PRN PRN (Reason: CHEST PAIN) RF: 0 ropinirole 0.5 MG tablet 0.5 mg PO QHS PRN PRN (Reason: RESTLESS LEG) RF: 0 levetiracetam [Keppra] 500 mg tablet 500 mg PO TID RF: 0 clopidogrel 75 mg tablet 75 mg PO DAILY Qty: 90 RF: 3 rosuvastatin 40 mg tablet See Rx Instructions .ROUTE .COMPLEX Qty: 90 RF: 3 Primary Care Provider: Tito Hill Referrals: Tito Hill MD [Primary Care Provider] - 3-5 Days Disposition Disposition: Home, self care
--- NOTE | 2020-09-27 18:09 | US_ITS ---
INDICATION: RT MEDIAL ANKLE SWELLING S/P RADIATION EXAMINATION: US Venous Duplex LE Unilat / Limited TECHNIQUE: Jeffrey scale, pulse wave, and color flow Doppler imaging was performed of the lower extremity venous system. The right greater saphenous, common femoral, femoral, and popliteal veins were interrogated. COMPARISON: None. FINDINGS: There is normal compression, augmentation, and signal throughout the visualized deep lower extremity veins. No mass or fluid collection. Subcutaneous edema in the right ankle. US/Venous Duplex Imag/Limited/Uni IMPRESSION: No sonographic evidence of deep venous thrombosis. Electronically Signed: Nishant Reese MD at 19:49 EDT Tel , Service support ,
[2020-09-27 18:33] LABS: Absolute Lymphocyte Count 0.97 X10^3/uL (0.83-4.51); Absolute Neutrophil Count 3.2 X10^3/uL (2.0-7.7); Basophil# 0.03 X10^3/uL; Basophil% 0.6 % (0-1); Hematocrit 39.3 % (40-54); Hemoglobin 13.8 g/dL (13.0-16.5); Lymphocyte # 0.97 X10^3/ul (0.83-4.51); Lymphocyte % 19.7 % (19-41); Mean Corp Hgb Conc 35.1 g/dL (32-36); Mean Corpuscular Hgb 31.2 pg (27.0-32.0); Mean Corpuscular Volume 88.9 fL (80-94); Mean Platelet Vol. 9.7 fl (6.2-12.0); Monocyte% 12.2 % (0-10); NRBC Flagged by Analyzer 0 % (0-5); Neutrophil # 3.16 X10^3/uL (2.7-7.7); Neutrophil % 64.1 % (47-70); POSITIVE COUNT YES; RBC Distribution Width CV 11.9 % (11.6-14.6); RBC Distribution Width SD 38.3 fl (35.1-43.9); Red Blood Count 4.42 M/mm3 (4.6-6.2); White Blood Count 4.9 K/mm3 (4.4-11.0)
[2020-09-27 18:34] LABS: Differential Indicated SCAN CRITERIA MET
[2020-09-27 18:49] LABS: Differential Comment SCANNED; Platelet Estimate ADEQUATE (ADEQ)
[2020-09-27 18:52] LABS: ALB/GLOB Ratio 0.9 RATIO (0.9-2.4); AST(SGOT) 68 U/L (15-37); Alanine Aminotransfer ALT/SGPT 36 U/L (16-61); Albumin, Serum 3.3 g/dL (3.2-5.0); Alkaline Phosphatase 62 U/L (45-117); Anion Gap 3 (5-15); BUN 14 mg/dL (7-18); BUN/Creat Ratio 14.9 RATIO (10-20); Calcium,Total 8.7 mg/dL (8.5-10.1); Chloride 105 mmol/L (98-107); Creatinine, Serum 0.94 mg/dL (0.70-1.30); EST Glomerular Filtration Rate 87 mL/min (>60); Est Glom Filt Rate - Afr Amer 105 mL/min (>60); Estimated Creatinine Clearance 86.78 ml/min; Globulin 3.5 g/dL (2.2-4.2); Glucose 89 mg/dL (74-106); Potassium 5.4 mmol/L (3.5-5.1); Protein, Total 6.8 g/dL (6.4-8.2); Sodium Level 134 mmol/L (136-145)
[2020-09-27 18:57] LABS: BNP,B-Type NATRIURETIC PEPTIDE 16.4 pg/mL (0-100)
[2020-09-27 19:51] VITALS: BP 117/81; PULSE 62; RESP 16; O2SAT 96
[2020-09-27 20:12] LABS: Bacteria 0 SEEN /hpf (None Seen); Mucous, Urine 0 SEEN /hpf (<or=2+); Red Blood Cells-Urine 0 SEEN /hpf (0-5); Squamous Epithelial Cells - UA 0 SEEN /hpf (0-5); White Blood Cells 0 SEEN /hpf (0-5)
[2020-09-27 20:17] LABS: Color, Urine Yellow (Yellow); Glucose, Dipstick Normal (Normal); Ketone-Dipstick Negative (Negative); Leukocyte Esterase-Dipstick Negative /ul (Negative); Nitrite-Dipstick Negative (Negative); Occult Blood-Urine Negative /ul (Negative); Protein-Dipstick Negative (Negative); Urine Bilirubin Dipstick Negative (Negative); Urine Clarity Clear (Clear); Urine Urobilinogen Normal (Normal)
[2020-09-27 21:02] VITALS: BP 120/81; PULSE 62; RESP 15; O2SAT 98
== END 2020-09-27 21:03 | disposition home or self-care (01) ==
PROVIDERS: Emergency Provider Emergency Medicine; PCP Family Medicine
DX: I89.0 Lymphedema, not elsewhere classified (principal); N26.1 Atrophy of kidney (terminal); I25.10 Atherosclerotic heart disease of native coronary artery without angina pectoris; E78.5 Hyperlipidemia, unspecified; I25.5 Ischemic cardiomyopathy; I34.1 Nonrheumatic mitral (valve) prolapse; R56.9 Unspecified convulsions; I25.2 Old myocardial infarction; Z79.02 Long term (current) use of antithrombotics/antiplatelets; Z79.82 Long term (current) use of aspirin; Z79.899 Other long term (current) drug therapy; Z95.5 Presence of coronary angioplasty implant and graft
CPT/HCPCS: 80053; 81001; 83880; 84484; 85025; 93971; 99283; A4216

== ENCOUNTER → 2020-11-25 09:17 | Outpatient (CLI) | payer BC, SELFPAY ==
[2020-11-17 13:52] VITALS: BMI 25.7
[2020-11-25 12:46] LABS: AST(SGOT) 23 U/L (15-37); Alanine Aminotransfer ALT/SGPT 39 U/L (16-61); Albumin, Serum 3.8 g/dL (3.2-5.0); Alkaline Phosphatase 73 U/L (45-117); Anion Gap 7 (5-15); BUN 16 mg/dL (7-18); BUN/Creat Ratio 14.7 RATIO (10-20); Bilirubin, Direct 0.21 mg/dL (0.00-0.30); Calcium,Total 8.7 mg/dL (8.5-10.1); Chloride 103 mmol/L (98-107); Cholesterol 124 mg/dL (200); Creatinine, Serum 1.09 mg/dL (0.70-1.30); EST Glomerular Filtration Rate 73 mL/min (>60); Est Glom Filt Rate - Afr Amer 88 mL/min (>60); Glucose 79 mg/dL (74-106); High Density Lipoprotein 37 mg/dL; Potassium 3.8 mmol/L (3.5-5.1); Protein, Total 6.8 g/dL (6.4-8.2); Sodium Level 139 mmol/L (136-145); Triglycerides 74 mg/dL; Very Low Density Lipoprotein 15 mg/dL (5-40)
== END ==
PROVIDERS: PCP Family Medicine; Referring Provider Internal Medicine Cardiovascular Disease; Visit Provider Internal Medicine Cardiovascular Disease
DX: I25.10 Atherosclerotic heart disease of native coronary artery without angina pectoris (principal); E78.00 Pure hypercholesterolemia, unspecified; I34.1 Nonrheumatic mitral (valve) prolapse; I35.0 Nonrheumatic aortic (valve) stenosis; Z95.5 Presence of coronary angioplasty implant and graft
CPT/HCPCS: 36415; 80048; 80061; 80076

== ENCOUNTER → 2020-12-01 13:44 | Outpatient (CLI) | payer BC, SELFPAY ==
[2020-11-17 13:52] VITALS: BMI 25.7
--- NOTE | 2020-12-01 13:45 | ECHOD_ITS ---
Reason For Study: Murmur Procedure This was a 2D Doppler, Color Flow transthoracic echocardiogram. Contrast injection was performed. Exam performed in department. Left Ventricle Normal LV size. Left ventricular systolic function is normal. The estimated ejection fraction is 60 %. No evidence for diastolic dysfunction. No regional wall motion abnormalities noted. Right Ventricle Normal RV size. Normal systolic function. Atria Normal left atrium. Normal right atrium. No doppler evidence for ASD. Mitral Valve There is no mitral annular calcification. Normal mitral valve. Trivial mitral valve insufficiency. Tricuspid Valve Normal tricuspid valve. Trivial tricuspid valve insufficiency. Right ventricular systolic pressure estimated to be 24 mmHg. Aortic Valve Trisinus/trileaflet aortic valve. Mild diffuse aortic valve thickening. Moderate focal aortic valve calcification. Mild aortic stenosis. Pulmonic Valve The pulmonic valve is not well visualized. Great Vessels Normal sized aortic root. Pericardium/Pleural No pericardial effusion. MMode/2D Measurements & Calculations LVIDd: 4.7 cm IVSd: 1.3 cm LVOT diam: 2.1 cm LVIDs: 2.9 cm LVPWd: 1.1 cm LVOT area: 3.4 cm2 RVDd: 3.4 cm FS: 38.9 % Ao root diam: 3.6 cm LAV(MOD-bp): 48.6 ml LVAd ap4: 28.6 cm2 LAV(MOD-bp) Indexed: 23.8 ml/m2 LVLd ap4: 7.9 cm LAV(MOD-sp2): 57.7 ml EDV(MOD-sp4): 84.0 ml LAV(MOD-sp4): 35.9 ml EDV(sp4-el): 87.5 ml LVAs ap4: 15.4 cm2 LVLs ap4: 6.5 cm ESV(MOD-sp4): 30.7 ml ESV(sp4-el): 30.9 ml EF(MOD-sp4): 63.5 % EF(sp4-el): 64.7 % SV(MOD-sp4): 53.3 ml SV(sp4-el): 56.6 ml LA A4 area: 14.2 cm2 LA dimension(2D): 3.6 cm RA A4 area: 14.2 cm2 Doppler Measurements & Calculations MV E max lio: 54.4 cm/sec Lat Peak E' Lio: 10.3 cm/sec Med Peak E' Lio: 8.0 cm/sec MV A max lio: 61.1 cm/sec E/E' lat: 5.3 E/E' med: 6.8 MV E/A: 0.89 Ao V2 max: 246.4 cm/sec AI max lio: 379.2 cm/sec LV V1 max: 106.3 cm/sec Ao max P.3 mmHg AI max P.5 mmHg LV V1 max P.5 mmHg Ao V2 mean: 174.7 cm/sec LV V1 mean P.5 mmHg Ao mean P.4 mmHg AI dec slope: 135.7 cm/sec2 LV V1 mean: 75.4 cm/sec Ao V2 VTI: 56.8 cm AI P1/2t: 818.7 msec LV V1 VTI: 24.9 cm SAMMIE(I,D): 1.5 cm2 SAMMIE(V,D): 1.5 cm2 SV(LVOT): 85.3 ml PA V2 max: 93.2 cm/sec TR max lio: 229.8 cm/sec TR max P.1 mmHg ECHO/Echo Complete Interpretation Summary Left ventricular systolic function is normal. The estimated ejection fraction is 60 %. Trivial mitral valve insufficiency. Trivial tricuspid valve insufficiency. Mild aortic stenosis. Right ventricular systolic pressure estimated to be 24 mmHg. No evidence for diastolic dysfunction. Ordering Physician: Manolo Parks Referring Physician: Brad Hill Performed By: Romina Mcfadden, MAMADOU, RVT
== END ==
PROVIDERS: PCP Family Medicine; Referring Provider Internal Medicine Cardiovascular Disease; Visit Provider Internal Medicine Cardiovascular Disease
DX: I25.10 Atherosclerotic heart disease of native coronary artery without angina pectoris (principal); I35.0 Nonrheumatic aortic (valve) stenosis; I34.1 Nonrheumatic mitral (valve) prolapse; I25.5 Ischemic cardiomyopathy; E78.5 Hyperlipidemia, unspecified; I25.2 Old myocardial infarction; Z95.5 Presence of coronary angioplasty implant and graft
CPT/HCPCS: 93306

== ENCOUNTER 2021-02-16 11:30 | Outpatient (RCR) | payer BC, SELFPAY ==
--- NOTE | 2020-08-09 14:54 | HP.PTEVAL ---
Patient's Visit Information WATSON RODRIGUEZ is a 60 year old M referred to Physical Therapy by IVAN GARRETT with a diagnosis of Neoplasm of meninges. Date of Evaluation: 08/09/20 Physical Therapist: Rene Hurtado, DPT, OCS, CSCS - Visit Plan Frequency: 2x /Week Duration: 2-4 Weeks Plan: shown AFO option OTC today in case he needs one quickly. We will wait until after next week radiation treatment and then strt 2x/week for 2-4 weeks of teach strength pt can do at home for R LE and whole body(using bands, ankle weights, body weight) then hold chart to monitor progress for need to return to gym or further treatment. Next session ( squats, , lunge, inchworms, bridge with band, rows, pulldowns, SLR abd and ext, achilels stretch, mil press) - Subjective Neurosurgeon sent for therapy after having a seizure about two weeks ago. Seen a spine surgeon adn MRI since last visit and did not find much but had back injection. All was prior to seizure. Eventually saw neurology in [facility] and thought he may have had a stroke. Was in ER the next Sunday due to seizure and CT scan showed meningioma brain tumor affecting motor control area. Will start treatment on Sunday with gamma radiation. Neurosurgeon and oncology lately and will have more CT scans. That is what is casuing foot drop. Doctor wanted him to start therapy for basic strengthening. Whole R leg feels weak adn has foot drop on R, HS is also notably weak. Does not need AD at this time. Balance seems OK outside of motor control issues. Is on Kepra since 07/27. Last 10 days feels weaker in R leg since starting kepra. Not a surgical thing right now. Sleep is not great possibly due to meds. Getting around is harder due to R LE weakness. 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 Exercises : some core ex and planking and stretching of HS. Also bands for LE. 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 Able to do steps and bathe OK. Dresses self. - Objective Strength R LE vs L: baselines.R 32#adn L 64# HS, DF R 38# adn L 72# . R16# and L 40#. Walks with R steppage and conscious to lift R LE. [employer] chair without UE. Steps reciprocal without rail today. Walks slow and with poor confidence but steady. R leg weak vs L as above measurements indicate particularly in evertors, Df adn HS and hip abd. AROM and flexibility WFL although achilles tight at 0 active DF on R. Sensation WNL to gross light touch in LE. UE AROM WFL. hyper reflxic 3/3 in R achilles and patella with clonus vs 2/ in L side. - Balance Scores Functional Gait Assessment Score: 27 % Disability: 10.0000 - Goals Goal 1:: Pt I in appropriate HEP for R LE weakness and whole body ex to help maintain strength and activity as treatment of tumor progresses. Goal Time Frame: 6-8 Weeks Goal 2:: Ensure options with AFO if needed as radiation treatment goes on Goal Time Frame: 12-16 Weeks - Rehabilitation Potential Physical Therapy Diagnosis: neoplasm of meningies with resulting weakness R LE. Rehabilitation Potential: Fair - Anticipated Interventions Patient/Client Instruction: Educate patient on: Condition, Plan of Care For the Purpose of:: To improve nutrient delivery to tissue, To improve muscle performance and motor function, To increase tolerance to activity/condition/position, To improve ability of physical actions for home/community/work/leisure Therapeutic Exercise to Include: Strength training, Balance training, Postural training, Flexibilty training, Gait and locomotor training, Neuromotor development For the Purpose of:: To improve nutrient delivery to tissue, To improve muscle performance and motor function, To increase tolerance to activity/condition/position Thank you for the opportunity to evaluate your patient. For Medicare and Medicare HMO plans, please review the plan of care and approve it. It will need to be FAXED BACK to us at [phone] for Medicare purposes. For Medicare only, by signing this I certify the plan of care. Please let me know if there are questions or concerns regarding this plan of care. Physician Signature: Date:
--- NOTE | 2020-09-17 15:46 | HP.PTREVAL_ITS ---
IVAN GARRETT, It has been my pleasure to treat WATSON RODRIGUEZ over the last 5 visits for Neoplasm of meninges. Please see the progress note below for an update on the physical therapy plan of care! Subjective: Got off dexamethozone Sunday and sleeping much better. No obvious problems with inflammationa dn feeling pretty good this week. Wants to do same exercises he has been doing, not quite ready to progress yet. Objective/Function: DF R still slightly weaker but much better. Excellent strength improvement on DF adn overall energy. Tolerated bike well today. Plan Plan: Pt does nto feel ready to progress to gym yet but very comfortable with progressing current HEP at home. Will call when ready to progress to gym or if things go backwards or in early October to update me on his status. Otherwise will ex at home. Fair prognosis for new goal when ready. Goals Goal 1:: Pt I in appropriate HEP for R LE weakness and whole body ex to help maintain strength and activity as treatment of tumor progresses. Goal Time Frame: 6-8 Weeks Goal Progress: Goal Met Goal 2:: Ensure options with AFO if needed as radiation treatment goes on Goal Time Frame: 12-16 Weeks Goal Progress: not needed Goal 3:: Progress to gym ex I withotu excessive fatigue Goal Time Frame: 4-6 Weeks Goal Progress: New goal Anticipated Interventions Patient/Client Instruction: Educate patient on: Condition, Plan of Care For the Purpose of:: To improve nutrient delivery to tissue, To improve muscle performance and motor function, To increase tolerance to activity/condition/position, To improve ability of physical actions for home/community/work/leisure Therapeutic Exercise to Include: Strength training, Balance training, Postural training, Flexibilty training, Gait and locomotor training, Neuromotor development For the Purpose of:: To improve nutrient delivery to tissue, To improve muscle performance and motor function, To increase tolerance to activ ity/condition/position Please do not hesitate to contact me at [phone] by phone or if you have questions or concerns regarding this new plan of care! Sincerely, Rene Hurtado, DPT, OCS, CSCS
--- NOTE | 2021-02-08 13:41 | HP.PTREVAL_ITS ---
IVAN GARRETT, It has been my pleasure to treat WATSON RODRIGUEZ over the last 7 visits for Neoplasm of meninges. Please see the progress note below for an update on the physical therapy plan of care! Subjective: I walked on the beach in November. Still doing HEP with bands regularly. Saw neurologist for r LE. I still on Kepra. R leg feels heavy. Was feeling good in December. 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 He is still working and overdid it the next few days after that. Had bad leg seizure shortly thereafter due to dehydration adn fatigue and went to ER. Went to [place] for rehab type setting was off Kepra. That really set him back. Is just starting to feel back to how he did in november. Will have MRI 02/21 looking for brain edema. Is now on Trentol for brain edema. Was hard to walk three weeks ago. Now doing better. Wants to have strength assessed and feels tight in back of R calf. Seeing chiropractor and massage therapist. Objective/Function: 72 HR at rest and 89 after bike. 55# R dF strength and 50#v seated hip flexion 43# HS strength L side. All improved. Tightness in R Df to -6 actively and -5 PROM, tends to sole also. Emphasized gastroc stretch. Walks I and safe on firm flat surface with slight R steppage but I. Overall doing well and wants to progress to CV ex on bike to add to EHP Plan Plan: weekly x 3-6 for progression to I of CV ex. Pt to get script form Dr. Hearn for cotninuance adn then schedule. Balance/Gait/Functional tests - Balance/Special Test Scores Functional Gait Assessment Score: 27 % Disability: 10.0000 Lower Extremity Functional Score: 50 Goals Goal 1:: Pt I in appropriate HEP for R LE weakness and whole body ex to help maintain strength and activity as treatment of tumor progresses. Goal Time Frame: 6-8 Weeks Goal Progress: Goal Met Goal 2:: Ensure options with AFO if needed as radiation treatment goes on Goal Time Frame: 12-16 Weeks Goal Progress: not needed Goal 3:: Progress to gym ex I withotu excessive fatigue Goal Time Frame: unknown time frame Goal Progress: not yet due to setbacks Goal 4:: I in appropriate CV ex on bike at home within tolerance to add to current HEP Goal Time Frame: 4-6 Weeks Goal Progress: NEW GOAL Anticipated Interventions Patient/Client Instruction: Educate patient on: Condition, Plan of Care For the Purpose of:: To improve nutrient delivery to tissue, To improve muscle performance and motor function, To increase tolerance to activity/condition/position, To improve ability of physical actions for home/community/work/leisure Therapeutic Exercise to Include: Strength training, Balance training, Postural training, Flexibilty training, Gait and locomotor training, Neuromotor development For the Purpose of:: To improve nutrient delivery to tissue, To improve muscle performance and motor function, To increase tolerance to activity/condition/position Please do not hesitate to contact me at [phone] by phone or Fax: if you have questions or concerns regarding this new plan of care! Sincerely, Rene Hurtado, DPT, OCS, CSCS
== END 2021-02-16 19:00 | disposition home or self-care (01) ==
LOC: PT 11:30
PROVIDERS: PCP Family Medicine
DX: D32.9 Benign neoplasm of meninges, unspecified (principal)
CPT/HCPCS: 97110; 97162; 97530

== ENCOUNTER 2021-03-08 11:54 | Outpatient (RCR) | payer BC, SELFPAY ==
--- NOTE | 2021-08-04 11:41 | HP.PT.NRP ---
WATSON RODRIGUEZ was seen in my office for initial evaluation on . The following Plan of Care was established for this patient: This patient was last seen in our office 03/08/21. Pertinent comments regarding their Physical therapy will appear below: Pt seen 9 visits of POC and then did not attend any further visits. He was progressing well and has since been sent back and another chart opened for him and therefore I will discontinue this chart in favor of the new one. At this point I will be discontinuing this patient from physical therapy. I would be happy to see this patient again in the future if found appropriate by the physician. Thank you! Rene Hurtado, DPT, OCS, CSCS
== END 2021-03-08 19:00 | disposition home or self-care (01) ==
LOC: PT 11:54
PROVIDERS: PCP Family Medicine
DX: D32.9 Benign neoplasm of meninges, unspecified (principal); R53.81 Other malaise
CPT/HCPCS: 97110

== ENCOUNTER 2021-08-31 14:30 | Outpatient (RCR) | payer BC, SELFPAY ==
--- NOTE | 2021-07-28 14:08 | HP.PTEVAL_ITS ---
Patient's Visit Information WATSON RODRIGUEZ is a 61 year old M referred to Physical Therapy by YANCY BRADEN with a diagnosis of Meningioma. Date of Evaluation: 07/28/21 Physical Therapist: Rene Hurtado, ALANNAHT, OCS, CSCS - Visit Plan Frequency: 2x /Week Duration: 4-6 Weeks Plan: 2x/week for 4-6 weeks as needed to work on CV ex (try recumbent bike and TM) to get HR back to 120+ and keep it elevated for 20-30 minutes without R LE symtpoms. Build his confidence with these. Consider pool or gym machines if R LE worsens once dex is done. - Subjective has been in therapy and exercising due to meningioma for the last year plus doing home exercises and waiting to be ready for gym. All that information is in previous charts and still pertinent and was reviewed today. Currently feels ready to progress. Just had MRI and still has some edema in brain and started on dexamthozone a couple weeks ago. Tumor is stagnant. he has learned over the last year how to manage seizures and getting stronger. R leg is effected by tumor and is swelling. Wants to try more exercise to get stronger and manage edema. has been doing SLR, bands for UE and LE and core strength including planks. Not doing any aerobic outside of walking outside for one half mile very slowly maybe 20 minutes. Feels neuropathy and burning in R foot when overdoes it and that causes him to stop. Neurologist wrote order to get back to aerobic movement and aggressive ex than the HEP. Wants to try bike and Treadmill to start. Has recumbent bike at home where he does 10-15 minutes weekly. Then burning kicks in. They are not sure why his leg bothers him. That has been less than it used to be now that he is on dex. Gets leg sezures that set him back focal motor seizure but last one was May 18. Has rescue med that he takes when he feels it coming on. They also upped his base seizure meds. New neurologist has been helpful. No precautions. has tinnitus, Leg pain R only and more burning/tingling. Only gets it with walking. 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 Sleep is OK. Slightly worse with dex. - Objective Walks and trasnfers normal and I. Balance is good. 74 and HS 75. 97 spO2 and 93 HR after one minute on bike assault. 5 min at 45 rpms on assault bike :96spo2 and 108 HR and at 10 minutes. AROM LE joints WFL, some tightness R LE vs L in all muscle but patient already stretching at home except quad which was taught to patient today. Strength in LE is functional. Pt has no problems or symptoms with CV ex above today but is hesitant and worried about doing it himself. Has recumbent bike and wants to walk at home, does not want to focus on weight training yet. - Balance/Special Test Scores Lower Extremity Functional Score: 62 - Goals Goal 1:: I in 25-30 minutes CV excx via bike, or walking or gym CV that patient feels confident doing himeself with no increase in R LE symptoms once off the dexamethozone. Goal Time Frame: 4-6 Weeks - Rehabilitation Potential Physical Therapy Diagnosis: weakness and hesitancy to ex since meningioma treatment and r LE dysfunction/weakness. Rehabilitation Potential: Fair - Anticipated Interventions Patient/Client Instruction: Educate patient on: Condition, Plan of Care For the Purpose of:: To improve muscle performance and motor function, To improve endurance Therapeutic Exercise to Include: Strength training, Endurance training For the Purpose of:: To improve endurance Thank you for the opportunity to evaluate your patient. For Medicare and Medicare HMO plans, please review the plan of care and approve it. It will need to be FAXED BACK to us at [phone] for Medicare purposes. For Medicare only, by signing this I certify the plan of care. Please let me know if there are questions or concerns regarding this plan of care. Physician Signature: Date:
--- NOTE | 2021-08-31 14:58 | HP.PTREVAL ---
YANCY BRADEN, It has been my pleasure to treat WATSON RODRIGUEZ over the last 7 visits for Meningioma. Please see the progress note below for an update on the physical therapy plan of care! Subjective: Doing allright, no problems since last session. Getting more comfortable with CV ex. Did 20 min total intervals for 16 on recumbent bike at home. Foot felt good today. New meds added at last seizure and that may be helpful. Off of dex for a while now and sleeping well. Objective/Function: 140 HR at top of bike interval. DF and HS R are 10# weaker than R but improving and quite functional. Tolerating CV well and tolerates increase HR fine. Plan Plan: Pt to go on vacation and then initiate CV at home himself and call by Mid September if he has concerns or health changes. Balance/Gait/Functional tests - Balance/Special Test Scores Lower Extremity Functional Score: 62 Goals Goal 1:: I in 25-30 minutes CV excx via bike, or walking or gym CV that patient feels confident doing himeself with no increase in R LE symptoms once off the dexamethozone. Goal Time Frame: 4-6 Weeks Goal Progress: Progressing Anticipated Interventions Patient/Client Instruction: Educate patient on: Condition, Plan of Care For the Purpose of:: To improve muscle performance and motor function, To improve endurance Therapeutic Exercise to Include: Strength training, Endurance training For the Purpose of:: To improve endurance Please do not hesitate to contact me at [phone] by phone or if you have questions or concerns regarding this new plan of care! Sincerely, Rene Hurtado, DPT, OCS, CSCS
--- NOTE | 2022-01-20 11:38 | HP.PT.NRP ---
WATSON RODRIGUEZ was seen in my office for initial evaluation on 07/28/21. The following Plan of Care was established for this patient: Initial Frequency: 2x /Week Initial Duration: 4-6 Weeks Patient/Client Instruction: Educate patient on: Condition, Plan of Care For the Purpose of:: To improve muscle performance and motor function, To improve endurance Therapeutic Exercise to Include: Strength training, Endurance training For the Purpose of:: To improve endurance This patient was last seen in our office 08/31/21. Pertinent comments regarding their Physical therapy will appear below: Pt seen for 7 visits to get on I program to maintain health with his many health concerns. He was to f/u in Mid-September if he needed his program tweaked. I have heard from him 2x via email since his last appointment stating that he is doing well. at this point, it has been over months since last visit and i will discontinue him but would be happy to see him again in future if found appropriate by physician or patient. At this point I will be discontinuing this patient from physical therapy. I would be happy to see this patient again in the future if found appropriate by the physician. Thank you! Rene Hurtado, DPT, OCS, CSCS Balance/Gait/Functional tests - Balance/Special Test Scores Lower Extremity Functional Score: 62
== END 2021-08-31 19:00 | disposition home or self-care (01) ==
LOC: PT 14:30
PROVIDERS: PCP Family Medicine
DX: D32.9 Benign neoplasm of meninges, unspecified (principal); R56.9 Unspecified convulsions; L59.8 Other specified disorders of the skin and subcutaneous tissue related to radiation; Y84.2 Radiological procedure and radiotherapy as the cause of abnormal reaction of the patient, or of later complication, without mention of misadventure at the time of the procedure; R53.1 Weakness
CPT/HCPCS: 97110; 97161

== ENCOUNTER → 2022-02-16 | Outpatient (CLI) | payer BC, SELFPAY ==
--- NOTE | 2022-02-16 08:44 | STRESSREP_ITS ---
Stress Test Report Date: 02-16-2022 Procedure: Exercise tolerance test/imaging study Indications: CAD; status post PCI; ischemic mediated cardiomyopathy Consent: Per the patient Procedure: The patient exercised on a Eric protocol for 9 minutes completing Stage III achieving a peak heart rate of 130 bpm (86% predicted maximal heart rate) with resting blood pressure of 108/68 mmHg and a peak blood pressure 124/62 mmHg and a peak MET capacity of 10 METs. The baseline ECG demonstrated normal sinus rhythm. The peak exercise ECG demonstrated an element of somatic/motion artifact with approximately 1 to 2 mm horizontal/upsloping ST segment depression in leads II, III, aVF, and V4 through V6 with resolution towards baseline beginning less than 1 minute in recovery. There were no cardiac dysrhythmias pretest, during exercise, or recovery. The functional capacity was considered good. There was no complaint of chest discomfort during exercise or recovery. The examination was discontinued secondary to leg fatigue. Impression: 1. Technically adequate (percent predicted maximal heart rate greater than 85%) exercise tolerance test 2. Peak exercise ECG with an element of somatic/motion artifact with approximately 1 to 2 mm horizontal/upsloping ST segment depression in leads II, III, aVF, and V4 through V6 with resolution towards baseline beginning less than 1 minute in recovery 3. There were no cardiac dysrhythmias pretest, during exercise, or recovery 4. Nuclear images pending Myocardial perfusion imaging study: Technique: The patient was injected with 11.8 mCi of technetium 99m Cardiolite and subsequently rest SPECT Cardiolite nuclear imaging was obtained in the horizontal long, vertical long, and short axis views. The patient exercised on a Eric protocol for 9 minutes completing Stage III achieving a peak heart rate of 130 bpm (86% predicted maximal heart rate) with resting blood pressure of 108/68 mmHg and a peak blood pressure 124/62 mmHg and a peak MET capacity of 10 METs. The patient was injected with 34.6 mCi of technetium 99m Cardiolite and subsequently stress SPECT Cardiolite nuclear imaging was obtained in the horizontal long, vertical long, and short axis views. A gated Cardiolite study at peak stress was obtained. Interpretation: Rest and stress SPECT Cardiolite nuclear imaging status post realignment, normalization, and attenuation correction, demonstrates at rest of a small area of subtle diminished tracer uptake in the mid anterior segments which appears to improve and/or normalize following stress. There is end systolic thickening and brightening. The gated Cardiolite study demonstrates myocardial thickening and inward wall motion. The reported LVEF is 65%. Impression: 1. Rest and stress SPECT Cardiolite nuclear imaging demonstrate myocardial perfusion changes at rest which appear to improve and/or normalize following stress appearing compatible with shifting soft tissue attenuation/artifact with no myocardial perfusion changes considered diagnostic for associated stress- induced myocardial ischemia. 2. The gated Cardiolite study reports an LVEF of 65%. This note was generated with [employer] software. It may contain incorrect words, spelling, and punctuation that were not noted in checking the note before signing.
== END | disposition home or self-care (01) ==
PROVIDERS: PCP Family Medicine; Visit Provider Nurse Practitioner Gerontology
DX: I25.10 Atherosclerotic heart disease of native coronary artery without angina pectoris (principal); Z95.5 Presence of coronary angioplasty implant and graft
CPT/HCPCS: 78452; 93017; A9500; A4216

== ENCOUNTER 2022-06-08 16:30 | Outpatient (RCR) | payer BC, SELFPAY ==
--- NOTE | 2022-04-18 16:51 | HP.PTEVAL_ITS ---
Patient's Visit Information WATSON RODRIGUEZ is a 62 year old M referred to Physical Therapy by Dr. Jason Hearn MD with a diagnosis of neck pain. Date of Evaluation: 04/18/22 Physical Therapist: Rene Hurtado DPT, OCS, CSCS - Visit Plan Frequency: 2-3x /Week Duration: 4-6 Weeks Plan: 2-3x/week as needed for 4-6 (start two weeks) . Please do US to R neck, manual therapy of STM and traction and PROM to neck, PA mobs ext to thoracic and cervical spine. Ensure c/s ret/ext ex going well and progress pressures. TENS with Mh as needed. progress to strngth of neck posture as tolerated. (Given cervical retraction/ext with OP as HEP today) - Subjective Had chemo infusion about a month ago and neck flared up, likely coincidental but r foot has been numb and painful like it was before. Is here for neck pain . Hurts R posterior neck behind ear and toward scapula especially if turn head L or R but worse to the R. Dull ache. Still doing some stretches for neck at home. Still doing pulling on band and strength and UT stretch. painfree looking straight ahead. Lying on side at night and rolling certain direction will be sharp and wake him up, does not keep him up at night. has cancer and gets some massage at home from [facility]. That feels good for a bit. Insidious onset. Today better than yesterday but does not know why. Activities pretty normal. Hurts head to drive but just got approved for that 4 weeks ago due to seizures. 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 Started ibuprofen a week ago and quit taking it for a bit. Had US of neck and all OK. Xray was OK. MRI in January still showed swelling around tumor so started infusion chemo again in January. Denies numbness or tinglin or weakness in arms]. No icnotinence. No sneezing pain - Pain R neck Pain Intensity (Out of 10): 0 Pain Intensity Range: 0, 6 - Objective Posture is forward and protracted scapula. Max tender in r lev scap near top and scalenes. UE AROM is full and painfree. Cervical aROM ext 40 and painful R, SB 10 each and painful L>R, rotation is 55 R and 60 L. reflexes 2/3 bi and tri. Sensation UE WNL to gross light touch. Strength UE 4/5 without myotomal problems. + c/s compression test R. - nerve stretch tests. repeated motion: protrusion: NE ROM or pain. retraction PDM and NE ROM. retraction extension: PDM, NE pain, ROM increased - Balance/Special Test Scores Oswestry Neck Score: 11 - Goals Goal 1:: 60 extension degrees and 60 rotation wihtout pain Goal Time Frame: 4-6 Weeks Goal 2:: Pt describe pain as 90% better adn 1/10 at worst Goal Time Frame: 4-6 Weeks Goal 3:: No pain turning at night Goal Time Frame: 4-6 Weeks Goal 4:: I management of condition Goal Time Frame: 4-6 Weeks - Rehabilitation Potential Physical Therapy Diagnosis: cervical derangement vs soft tissue Rehabilitation Potential: Fair - Anticipated Interventions Patient/Client Instruction: Educate patient on: Condition, Plan of Care For the Purpose of:: To decrease pain, To increase ROM, To improve muscle performance and motor function, To increase tolerance to activity/condition/position Therapeutic Exercise to Include: Strength training, Flexibilty training, Passive ROM, Active ROM For the Purpose of:: To decrease pain, To increase ROM, To improve muscle performance and motor function, To improve ability of physical actions for home/community/work/leisure Manual Therapy Techniques to Include: Petrissage, Mobilization, Passive ROM, Soft tissue mobilization For the Purpose of:: To decrease pain, To increase ROM, To improve muscle performance and motor function TENS: Yes Thermo therapy (hot pack): Yes Ultrasound (thermal/non thermal): Yes - thermal R neck For the Purpose of:: To decrease pain, To increase ROM Thank you for the opportunity to evaluate your patient. For Medicare and Medicare HMO plans, please review the plan of care and approve it. It will need to be FAXED BACK to us at [phone] for Medicare purposes. For Medicare only, by signing this I certify the plan of care. Please let me know if there are questions or concerns regarding this plan of care. Physician Sig nature: Date:
--- NOTE | 2022-05-26 08:02 | HP.PTREVAL_ITS ---
Dr. Jason Hearn MD, It has been my pleasure to treat WATSON RODRIGUEZ over the last 8 visits for neck pain. Please see the progress note below for an update on the physical therapy plan of care! Subjective: Some better than 3 weeks ago. Started to do lifting in gym which has helped. Slow improvement but moving the right direction. still feels right rotation is worse than L in neck. STM from [facility] was helpful. Sleep is OK. Occasional up atnight dpendoing on pillow. Activities pretty normal at home. Turning head to the right in car is still noticeable sometimes. Doing gym ex 4x/week and ROM/stretching at home. Objective/Function: 70 L rotation and 65 R rotation, R painful. 50 extension hard end feel. SB 20 degrees B. Less tenderness R neck, better ROM, SLOW improvement. very firm end feels with rotation and extensiona dn SB in neck. oswestry 4 points better. Goals appropriate for 2 week recheck. Plan Plan: f/u before departure to [facility] in 2 weeks to check extension and progress. Pt to call prior if needed and will see doctor next week. Check ext ROM and progress and likely d/c Balance/Gait/Functional tests - Balance/Special Test Scores Oswestry Neck Score: 7 Goals Goal 1:: 60 extension degrees and 60 rotation wihtout pain Goal Time Frame: 4-6 Weeks Goal Progress: rotation met, and extensi Goal 2:: Pt describe pain as 90% better adn 1/10 at worst Goal Time Frame: 4-6 Weeks Goal Progress: 85% Goal 3:: No pain turning at night Goal Time Frame: 4-6 Weeks Goal Progress: Progressing Goal 4:: I management of condition Goal Time Frame: 4-6 Weeks Goal Progress: Progressing Anticipated Interventions Patient/Client Instruction: Educate patient on: Condition, Plan of Care For the Purpose of:: To decrease pain, To increase ROM, To improve muscle performance and motor function, To increase tolerance to act ivity/condition/position Therapeutic Exercise to Include: Strength training, Flexibilty training, Passive ROM, Active ROM For the Purpose of:: To decrease pain, To increase ROM, To improve muscle performance and motor function, To improve ability of physical actions for home/community/work/leisure Manual Therapy Techniques to Include: Petrissage, Mobilization, Passive ROM, Soft tissue mobilization For the Purpose of:: To decrease pain, To increase ROM, To improve muscle performance and motor function TENS: Yes Thermo therapy (hot pack): Yes Ultrasound (thermal/non thermal): Yes - thermal R neck For the Purpose of:: To decrease pain, To increase ROM Please do not hesitate to contact me at [phone] by phone or if you have questions or concerns regarding this new plan of care! Sincerely, Rene Hurtado, ALANNAHT, OCS, CSCS
--- NOTE | 2022-06-08 16:58 | HP.PTREVAL ---
Dr. Jason Hearn MD, It has been my pleasure to treat WATSON RODRIGUEZ over the last 9 visits for neck pain. Please see the progress note below for an update on the physical therapy plan of care! Subjective: Pillow really helps support it at night. Turning is pretty good without pain to the left. right still feels tight but no pain, extension still causes pain in R neck. Feels good without moving neck. Not noticing it in the car turning head. Objective/Function: 58 extension, 69 Right rotation, 71 l rotation.Improving but still painful and muscle protective at end range of extension. Tightness in L scap with full elavatio of L shoulder, otherwie UE WNL ROM and strength is 4/5 without pain except L flexion. Progressing nicely with physical function and wants chart to be kept open in case it returns, will call if it does. Plan Plan: hold chart, patient to call if situation worsens. Balance/Gait/Functional tests - Balance/Special Test Scores Oswestry Neck Score: 7 Goals Goal 1:: 60 extension degrees and 60 rotation wihtout pain Goal Time Frame: 4-6 Weeks Goal Progress: Progressing Goal 2:: Pt describe pain as 90% better adn 1/10 at worst Goal Time Frame: 4-6 Weeks Goal Progress: Goal Met Goal 3:: No pain turning at night Goal Time Frame: 4-6 Weeks Goal Progress: Goal Met Goal 4:: I management of condition Goal Time Frame: 4-6 Weeks Goal Progress: Goal Met Anticipated Interventions Patient/Client Instruction: Educate patient on: Condition, Plan of Care For the Purpose of:: To decrease pain, To increase ROM, To improve muscle performance and motor function, To increase tolerance to activity/condition/position Therapeutic Exercise to Include: Strength training, Flexibilty training, Passive ROM, Active ROM For the Purpose of:: To decrease pain, To increase ROM, To improve muscle performance and motor function, To improve ability of physical actions for home/community/work/leisure Manual Therapy Techniques to Include: Petrissage, Mobilization, Passive ROM, Soft tissue mobilization For the Purpose of:: To decrease pain, To increase ROM, To improve muscle performance and motor function TENS: Yes Thermo therapy (hot pack): Yes Ultrasound (thermal/non thermal): Yes - thermal R neck For the Purpose of:: To decrease pain, To increase ROM Please do not hesitate to contact me at [phone] by phone or if you have questions or concerns regarding this new plan of care! Sincerely, Rene Hurtado, ALANNAHT, OCS, CSCS
--- NOTE | 2022-10-31 13:21 | HP.PT.NRP ---
WATSON RODRIGUEZ was seen in my office for initial evaluation on 04/18/22. The following Plan of Care was established for this patient: Initial Frequency: 2-3x /Week Initial Duration: 4-6 Weeks Patient/Client Instruction: Educate patient on: Condition, Plan of Care For the Purpose of:: To decrease pain, To increase ROM, To improve muscle performance and motor function, To increase tolerance to activity/condition/position Therapeutic Exercise to Include: Strength training, Flexibilty training, Passive ROM, Active ROM For the Purpose of:: To decrease pain, To increase ROM, To improve muscle performance and motor function, To improve ability of physical actions for home/community/work/leisure Manual Therapy Techniques to Include: Petrissage, Mobilization, Passive ROM, Soft tissue mobilization For the Purpose of:: To decrease pain, To increase ROM, To improve muscle performance and motor function TENS: Yes Thermo therapy (hot pack): Yes Ultrasound (thermal/non thermal): Yes - thermal R neck For the Purpose of:: To decrease pain, To increase ROM This patient was last seen in our office 06/08/22. Pertinent comments regarding their Physical therapy will appear below: Pt seen 9 visits of POC and was 90% better. he was doing an I ex program and tolerating well. He was to call if he needed to return but at this point, it has been over 5 months and I will discontinue. At this point I will be discontinuing this patient from physical therapy. I would be happy to see this patient again in the future if found appropriate by the physician. Thank you! Rene Hurtado, DPT, OCS, CSCS Balance/Gait/Functional tests - Balance/Special Test Scores Oswestry Neck Score: 7
== END 2022-06-08 19:00 | disposition home or self-care (01) ==
LOC: PT 16:30
PROVIDERS: PCP Family Medicine; Referring Provider Family Medicine; Visit Provider Family Medicine
DX: M54.2 Cervicalgia (principal)
CPT/HCPCS: 97035; 97110; 97140; 97162; 97164; 97530

== ENCOUNTER 2023-01-16 09:29 | Day surgery (SDC) | payer BC, SELFPAY ==
[2023-01-16] VITALS (8 sets, daily range): BP systolic 100–121; BP diastolic 60–72; PULSE 46–56; RESP 14–18; TEMP 36.2–36.6; O2SAT 98–100; BMI 25.9
--- NOTE | 2023-01-16 | COLBX_PTH ---
PATIENT: WATSON RODRIGUEZ LOC: EN U#:[id number] AGE/SX: 62/M ROOM: RE01/16/[address]: Dr. Gian Peterson MD : 1960 BED: DIS: 01/16/2023 SPEC #: [id number] RECD: 01/16/23 14:20 STATUS: CHARLEY GOMEZ #: [id number] ERIN: 01/16/23 00:[address]: Gian Peterson DEPT: SURGICAL PATHOLOGY RECD BY: Italo Coyle ENTERED: 01/17/23 08:42 SP TYPE: COLON BX OTHR DR: Dr. Jason Hearn MD Tissues: Cecum, NOS Procedures: Surgery Specimen Level IV HEADER OPERATION: Colonoscopy, polypectomy, hemostasis clip PRE-OP DIAGNOSIS: History of colonic polyps, lipomas TISSUE SUBMITTED: Cecum polyp MICROSCOPIC DIAGNOSIS Cecum polyp, polypectomy: Fragments of tubular adenoma. SJ:ezequiel 01/18/2023 MICROSCOPIC DESCRIPTION Slides are reviewed. GROSS DESCRIPTION Received in fixative is one container labeled with the patient's name and designated cecum polyp. The specimen consists of multiple irregular fragments of light duke soft tissue mixed with fecal material that in aggregate measure 2.5 x 1.5 x 0.2 cm. The specimen is totally submitted in one cassette. / MONTSE:ezequiel 01/17/2023 TC:1 CPT: 85279
--- NOTE | 2023-01-16 09:45 | HP.PCM_ITS ---
History and Physical Date of Admission: 01/16/23 Visit Reasons: S/R SCREENING SCOPE Chief Complaint: hx colon polyps Calibration Engineer Required: No Is patient in pain?: No Allergies atorvastatin [From Lipitor] Adverse Reaction (Verified 01/04/23 09:42) Other Medications aspirin 81 mg tablet,delayed release 81 mg PO DAILY 02/02/17 [History Confirmed 01/04/23] multivitamin 1 ea PO DAILY 02/02/17 [History Confirmed 01/04/23] sildenafil 50 mg tablet (Viagra) 50 mg PO QDAY PRN ERECTILE 04/14/17 [History Confirmed 01/04/23] clonazepam 1 mg disintegrating tablet 1 mg PO DAILY PRN 07/21/21 [History Confirmed 01/04/23] nitroglycerin 0.4 mg sublingual tablet 0.4 mg sublingual Q5-15M PRN Pt instructed NOT to take within 24 hrs of Viagra #25 tabs 01/02/22 [Rx Confirmed 01/04/23] rosuvastatin 40 mg tablet See Rx Instructions .Route .COMPLEX #90 tabs 03/16/22 [Rx Confirmed 01/04/23] levetiracetam 750 mg tablet (Keppra) 750 mg PO BID 01/04/23 [History Confirmed 01/04/23] [facility] Medical History (Updated 01/04/23 @ 09:[address] Gian Peterson MD) Anteroseptal myocardial infarction Atherosclerotic heart disease of 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) Hyperlipemia Ischemic cardiomyopathy Nonrheumatic aortic (valve) stenosis Nonrheumatic mitral (valve) prolapse Seizures Surgical History (Updated 01/04/23 @ 09:41 by Sudha Christina) History of colonoscopy History of hemorrhoidectomy Postsurgical percutaneous transluminal coronary angioplasty (PTCA) status Presence of stent in coronary artery (01/15/13) Status post gamma knife treatment Family History Mother Macular degenerationBrother Myocardial infarction CAD (coronary artery disease) Social History Smoking Status: Never smoker second hand exposure: No alcohol intake: never substance use type: does not use caffeine: No what type of physical activity do you participate in: none seatbelt use: always HPI HPI HPI: 62-year-old gentleman is referred by Dr. Jason Hearn for surgical consultation regarding his surveillance colonoscopy and a written compromise surgical consult and recommendations will return to him. On February 12, 2017 I assisted the patient with a combined colonoscopy and surgical hemorrhoidectomy. A saline lift and snare polypectomy was performed for cecal polyp's as well as the hemorrhoidectomy at that time. Pathology demonstrated fragments of a tubular adenoma of the cecum. Routine hemorrhoids identified. He has a meningioma of the brain. He has been treated with gamma knife. It is still present. He has right foot pain problems. He had difficulties walking after the treatment. He was briefly treated with chemotherapy as well. He denies abdominal pain bright red blood per rectum or melena. Since his initial seizure since he is on medication he has not had further seizure events. ROS General General: No weight change, appetite, fatigue, colon cancer, breast cancer or weakness HEENT HEENT: No difficulty swallowing, eye injury, eye surgery, swollen glands or hoarseness Endo Endocrine: No thyroid disease, diabetes mellitus, thyroid cancer, Hair loss, heat intolerance or cold intolerance Musc Musculoskeletal: No back problems, arthritis, rheumatoid arthritis, gout or joint pain Cardio Cardiovascular: Yes heart disease, heart attack and heart stent; No murmur, pacemaker, atrial fibrillation, high blood pressure, palpitations, shortness of breat with exertion or chest pain Psych Psychiatric: No depression, anxiety or hearing voices Resp Respiratory: No shortness of breath, Yes sleep apnea, No cough, No COPD, No asthma, No emphysema and No wheezing Gastro Gastrointestinal: No abdominal pain, No nausea or vomiting, No diarrhea, No constipation, No blood in stool, No acid reflux, Yes hemorrhoids, No ulcers, No gallbladder problem and No black,tarry stools Faizan Hematologic: Yes blood thinners, No blood disorders, No bleeding, No anemia and No blood clots Neuro Neurologic: No weakness Exam Const General: cooperative, healthy appearing, comfortable and no acute distress [facility] Head: normal to inspection Eyes General: appearance normal, both eyes and all related structures Neck Neck: normal visual inspection Chest Chest palpation & inspection: normal inspection of the chest Resp Effort & Inspection: normal respiratory effort Auscultation: clear to auscultation bilaterally Cardio Rate: regular rate Rhythm: regular rhythm GI Inspection: normal to inspection Palpation: soft and no hepatosplenomegaly Other: 2 small subcutaneous nodules both bilateral subcostal. Skin General: no rashes or lesions noted Neuro General: patient alert, patient awake and patient oriented x3 Extrem General: no calf tenderness Psych Appearance: grossly normal Assessment and Plan Assessment and Plan (1) Personal history of colonic polyps: Status: Acute Plan: 62-year-old gentleman currently undergoing immunotherapy who has a personal history of colon polyps of the tubular adenoma of the cecum. Previous colonoscopy February 12, 2017. I recommended the patient a colonoscopy with possible biopsy or polypectomy as indicated. Because of his previous known history of meningioma and seizure activity we will use monitored anesthesia care. He may continue his medications. He has 2 small centimeter diameter subcutaneous masses bilateral subcostal area consistent with lipomas. Intermittently they are mildly symptomatic but he states he has had them for years. Surgical excision in the office can be at his discretion. He has had an opportunity to ask and have questions answered. We will schedule proceed with his colonoscopy Copy: Dr. Jason Peterson M.D., F.A.C.S. (2) Lipoma: I have examined the patient and the H&P has been reviewed. There are no clinical changes since date of exam. Gian Peterson M.D., F.A.C.S.
[2023-01-16] MEDS: Lactated Ringers 1,000 ML 15 ML IV (09:55)
[2023-01-16] MEDS: 0.9% Saline Lock 10 ML Syringe IV ×3 (11:42→11:43)
--- NOTE | 2023-01-16 11:53 | OP.CCLET_ITS ---
01/16/2023 Jason Hearn Re : Colonoscopy procedure for Wale Hearn This procedure was performed on Monday, January 16, 2023. My impressions and recommendations are as follows: Impressions : - Preparation of the colon was fair. - Hemorrhoids found on perianal exam. - Diverticulosis in the sigmoid colon. - One 25 mm polyp in the cecum, removed piecemeal using a cold snare. Resected and retrieved. Clips were placed. Recommendations : - Repeat colonoscopy in 1 year for surveillance based on pathology results. - Telephone my office for pathology results in 1 week. - Continue present medications. My findings are described in the full procedure note, which is enclosed. If I can be of further assistance, please feel free to contact me at Doctor phone number(s): Work: . Sincerely, Gian Peterson MD 01/16/2023 11:52:51 AM This report has been signed electronically.
--- NOTE | 2023-01-16 11:53 | OP.COLON_ITS ---
Patient Name: Wale Herr Procedure Date: 01/16/2023 11:03 AM Date of : 1960 Age: 62 Procedure: Colonoscopy Indications: High risk colon cancer surveillance: Personal history of colonic polyps Providers: Gian Peterson MD Referring MD: Jason Hearn Medicines: See the Anesthesia note for documentation of the administered medications Patient Profile: Last Colonoscopy: February 2017. Complications: No immediate complications. Procedure: Pre-Anesthesia Assessment: - Prior to the procedure, a History and Physical was performed, and patient medications and allergies were reviewed. The patient's tolerance of previous anesthesia was also reviewed. The risks and benefits of the procedure and the sedation options and risks were discussed with the patient. All questions were answered, and informed consent was obtained. Prior Anticoagulants: The patient has taken no anticoagulant or antiplatelet agents. ASA Grade Assessment: III - A patient with severe systemic disease. After reviewing the risks and benefits, the patient was deemed in satisfactory condition to undergo the procedure. After I obtained informed consent, the scope was passed under direct vision. Throughout the procedure, the patient's blood pressure, pulse, and oxygen saturations were monitored continuously. The adult colonoscope was introduced through the anus and advanced to the cecum, identified by appendiceal orifice and ileocecal valve. The colonoscopy was performed with moderate difficulty. The patient tolerated the procedure well. The quality of the bowel preparation was fair. The ileocecal valve and the appendiceal orifice were photographed. Scope In: 11:13:33 AM Scope Withdrawal Time 0 hours 27 minutes 25 seconds Scope Out: 11:45:31 AM Total Procedure Duration Time 0 hours 31 minutes 58 seconds Findings: Hemorrhoids were found on perianal exam. The digital rectal exam was normal. Pertinent negatives include normal prostate (size, shape, and consistency). Multiple diverticula were found in the sigmoid colon. A 25 mm polyp was found in the cecum. The polyp was sessile. Polypectomy was attempted, initially using a saline injection-lift technique with a hot snare. In serial injections and piecemeal resection 25 cc of saline was used to lift the polyp. A combination of a hot snare and a cold snare and biopsy forceps were used for removal. Polyp resection was incomplete with this device. This intervention then required a different device and polypectomy technique. The polyp was removed with a piecemeal technique using a cold snare. Resection was complete, and retrieval was complete. To prevent bleeding post-intervention, three hemostatic clips were successfully placed. There was no bleeding at the end of the procedure. Impression: - Preparation of the colon was fair. - Hemorrhoids found on perianal exam. - Diverticulosis in the sigmoid colon. - One 25 mm polyp in the cecum, removed piecemeal using a cold snare. Resected and retrieved. Clips were placed. Recommendation: - Repeat colonoscopy in 1 year for surveillance based on pathology results. - Telephone my office for pathology results in 1 week. - Continue present medications. Procedure Code(s): --- Professional --- 97970, Colonoscopy, flexible; with removal of tumor(s), polyp(s), or other lesion(s) by snare technique 65304, Colonoscopy, flexible; with directed submucosal injection(s), any substance Diagnosis Code(s): --- Professional --- Z86.010, Personal history of colonic polyps K64.9, Unspecified hemorrhoids D12.0, Benign neoplasm of cecum K57.30, Diverticulosis of large intestine without perforation or abscess without bleeding CPT copyright 2021 [employer]. All rights reserved. The codes documented in this report are preliminary and upon structural steel trades worker review may be revised to meet current compliance requirements. Gian Peterson MD 01/16/2023 11:52:51 AM This report has been signed electronically. Number of Addenda: 0 Note Initiated On: 01/16/2023 11:03 AM
== END 2023-01-16 13:05 | disposition home or self-care (01) ==
LOC: EN 09:29 → AC 09:30
PROVIDERS: PCP Family Medicine; Referring Provider Family Medicine; Visit Provider Surgery
PROC: 0DJD8ZZ Inspection of Lower Intestinal Tract, Via Natural or Artificial Opening Endoscopic (ICD-10-PCS; CPT 45378; principal; 2023-01-16 10:25)
DX: Z12.11 Encounter for screening for malignant neoplasm of colon (principal); D32.0 Benign neoplasm of cerebral meninges; D12.0 Benign neoplasm of cecum; K57.30 Diverticulosis of large intestine without perforation or abscess without bleeding; K64.9 Unspecified hemorrhoids; I25.10 Atherosclerotic heart disease of native coronary artery without angina pectoris; I25.2 Old myocardial infarction; E78.5 Hyperlipidemia, unspecified; Z95.5 Presence of coronary angioplasty implant and graft; Z79.82 Long term (current) use of aspirin; Z79.899 Other long term (current) drug therapy; Z86.010 Personal history of colon polyps
CPT/HCPCS: 45385; 45381; 88305; J7120; A4216; J2405

== ENCOUNTER → 2023-04-10 | Outpatient (CLI) | payer BC, SELFPAY ==
--- NOTE | 2023-04-10 11:04 | ECHOD_ITS ---
Reason For Study: HX MILD Procedure This was a 2D Doppler, Color Flow transthoracic echocardiogram. Exam performed in department. Left Ventricle Normal LV size. Moderate concentric left ventricular hypertrophy. Left ventricular systolic function is normal. The estimated ejection fraction is 60 %. No regional wall motion abnormalities noted. Right Ventricle Normal RV size. Normal systolic function. Atria Normal left atrium. Normal right atrium. Mitral Valve Normal mitral valve. Tricuspid Valve Normal tricuspid valve. Aortic Valve Trisinus/trileaflet aortic valve. Mild focal aortic valve calcification. Peak aortic valve gradient 30 mmHg. Mean aortic valve gradient 17 mmHg. Pulmonic Valve Normal pulmonic valve. Great Vessels Mildly dilated aortic root. The pulmonary artery is normal size. Normal inferior vena cava. Pericardium/Pleural No pericardial effusion. MMode/2D Measurements & Calculations LVIDd: 4.5 cm IVSd: 1.4 cm LVOT diam: 2.1 cm LVIDs: 3.0 cm LVPWd: 1.3 cm LVOT area: 3.4 cm2 FS: 33.3 % Ao root diam: 4.3 cm LAV(MOD-bp): 47.7 ml LVAd ap4: 32.5 cm2 LAV(MOD-bp) Indexed: 23.7 ml/m2 LVLd ap4: 8.4 cm LAV(MOD-sp2): 44.3 ml EDV(MOD-sp4): 101.5 ml LAV(MOD-sp4): 51.5 ml EDV(sp4-el): 106.1 ml LVAs ap4: 17.6 cm2 LVLs ap4: 6.9 cm ESV(MOD-sp4): 38.9 ml ESV(sp4-el): 38.2 ml EF(MOD-sp4): 61.7 % EF(sp4-el): 64.0 % SV(MOD-sp4): 62.6 ml SV(sp4-el): 67.9 ml LA A4 area: 18.6 cm2 LA dimension(2D): 4.2 cm RA A4 area: 22.9 cm2 TAPSE: 2.7 cm Time Measurements MV dec time: 0.28 sec Doppler Measurements & Calculations MV E max lio: 48.7 cm/sec Lat Peak E' Lio: 10.5 cm/sec Med Peak E' Lio: 7.6 cm/sec MV A max lio: 46.6 cm/sec E/E' lat: 4.7 E/E' med: 6.4 MV E/A: 1.0 MV V2 max: 73.1 cm/sec Ao V2 max: 277.3 cm/sec MV max P.1 mmHg MV dec slope: 182.4 cm/sec2 Ao max P.9 mmHg MV V2 mean: 45.4 cm/sec Ao V2 mean: 194.4 cm/sec MV mean P.92 mmHg Ao mean P.4 mmHg MV V2 VTI: 30.4 cm Ao V2 VTI: 66.4 cm AV (velocity ratio): 0.43 MVA(VTI): 3.2 cm2 SAMMIE(I,D): 1.5 cm2 SAMMIE(V,D): 1.4 cm2 LV V1 max: 116.5 cm/sec SV(LVOT): 97.6 ml PA V2 max: 86.1 cm/sec LV V1 max P.4 mmHg PA V2 mean: 60.1 cm/sec LV V1 mean P.3 mmHg LV V1 mean: 84.8 cm/sec LV V1 VTI: 28.8 cm ECHO/Echo Complete Interpretation Summary Normal LV size. Left ventricular systolic function is normal. Moderate concentric left ventricular hypertrophy. The estimated ejection fraction is 60 %. Mildly dilated aortic root. Mild focal aortic valve calcification. Mean aortic valve gradient 17 mmHg. Ordering Physician: Pedrito Mcfadden Referring Physician: Pedrito Mcfadden Performed By: Елена Marroquin RCS
== END | disposition home or self-care (01) ==
PROVIDERS: PCP Family Medicine; Referring Provider Nurse Practitioner Family; Visit Provider Nurse Practitioner Family
DX: I35.0 Nonrheumatic aortic (valve) stenosis (principal); I25.5 Ischemic cardiomyopathy
CPT/HCPCS: 93306

== ENCOUNTER → 2024-05-19 | Outpatient (CLI) | payer MEDICARE, BC, SELFPAY ==
--- NOTE | 2024-05-19 13:02 | ECHOD_ITS ---
Version 2 Reason For Study: Aortic stenosis Procedure This was a 2D Doppler, Color Flow transthoracic echocardiogram. Exam performed in department. Left Ventricle Normal LV size. Left ventricular systolic function is normal. The left ventricular ejection fraction is 60 %. No regional wall motion abnormalities noted. Right Ventricle Normal RV size. Normal systolic function. Atria Normal left atrium. Normal right atrium. Mitral Valve Normal mitral valve. Tricuspid Valve Normal tricuspid valve. Mild (1+) tricuspid valve insufficiency. Pulmonary artery systolic pressure is 28 mmHg. Aortic Valve Trisinus/trileaflet aortic valve. Mild focal aortic valve calcification. Peak aortic valve gradient 31 mmHg. Mean aortic valve gradient 17 mmHg. Mild to moderate aortic stenosis. Pulmonic Valve Normal pulmonic valve. Great Vessels Normal aortic root. The pulmonary artery is normal size. Inferior vena cava collapse with respiration. Pericardium/Pleural No pericardial effusion. MMode/2D Measurements & Calculations LVIDd: 4.7 cm IVSd: 1.2 cm LVOT diam: 2.1 cm LVIDs: 3.0 cm LVPWd: 1.2 cm LVOT area: 3.3 cm2 RVDd: 3.6 cm FS: 36.7 % asc Aorta Diam: 4.4 cm LAV(MOD-bp): 58.5 ml LVAd ap4: 30.4 cm2 LAV(MOD-bp) Indexed: 28.4 ml/m2 LVLd ap4: 8.7 cm LAV(MOD-sp2): 67.6 ml EDV(MOD-sp4): 90.9 ml LAV(MOD-sp4): 47.1 ml EDV(sp4-el): 90.2 ml LVAs ap4: 16.1 cm2 LVLs ap4: 7.2 cm ESV(MOD-sp4): 31.1 ml ESV(sp4-el): 30.6 ml EF(MOD-sp4): 65.8 % EF(sp4-el): 66.0 % LVAd ap2: 28.7 cm2 SV(MOD-sp4): 59.8 ml SV(MOD-sp2): 50.2 ml LVLd ap2: 8.8 cm SI(MOD-sp4): 29.0 ml/m2 SI(MOD-sp2): 24.4 ml/m2 EDV(MOD-sp2): 79.9 ml EDV(sp2-el): 79.2 ml LVAs ap2: 15.8 cm2 LVLs ap2: 7.7 cm ESV(MOD-sp2): 29.7 ml ESV(sp2-el): 27.5 ml EF(MOD-sp2): 62.9 % SV(sp4-el): 59.5 ml LA dimension(2D): 3.6 cm LA A4 area: 17.7 cm2 RA A4 area: 17.6 cm2 TAPSE: 2.7 cm Time Measurements MV dec time: 0.20 sec Doppler Measurements & Calculations MV E max lio: 72.8 cm/sec Lat Peak E' Lio: 8.0 cm/sec Med Peak E' Lio: 8.5 cm/sec MV A max lio: 54.5 cm/sec E/E' lat: 9.1 E/E' med: 8.6 MV E/A: 1.3 Ao V2 max: 278.4 cm/sec LV V1 max: 123.9 cm/sec MV dec slope: 356.4 cm/sec2 Ao max P.3 mmHg LV V1 max P.2 mmHg Ao V2 mean: 191.0 cm/sec LV V1 mean P.1 mmHg Ao mean P.5 mmHg LV V1 mean: 81.8 cm/sec Ao V2 VTI: 63.2 cm LV V1 VTI: 27.3 cm AV (velocity ratio): 0.43 SAMMIE(I,D): 1.4 cm2 SAMMIE(V,D): 1.5 cm2 SV(LVOT): 91.0 ml PA V2 max: 84.0 cm/sec TR max lio: 245.2 cm/sec TR max P.1 mmHg ECHO/Echo Complete Interpretation Summary Normal LV size. Left ventricular systolic function is normal. The left ventricular ejection fraction is 60 %. Mean aortic valve gradient 17 mmHg. Mild to moderate aortic stenosis. Prior to the previous the above gradients are unchanged. Ordering Physician: Hoang Sauceda Referring Physician: Jason Hearn Performed By: Mariel, Maria Ines, RDCS
== END | disposition home or self-care (01) ==
LOC: CVS 13:02
PROVIDERS: PCP Family Medicine; Referring Provider Internal Medicine Cardiovascular Disease; Visit Provider Internal Medicine Cardiovascular Disease
DX: I35.0 Nonrheumatic aortic (valve) stenosis (principal); R01.1 Cardiac murmur, unspecified
CPT/HCPCS: 93306

== ENCOUNTER 2025-03-11 10:00 | Outpatient (RCR) | payer MEDICARE, BC, SELFPAY ==
--- NOTE | 2025-01-23 08:03 | HP.PTEVAL_ITS ---
Patient's Visit Information Visit Information Visit Information: WATSON RODRIGUEZ is a 64 year old M referred to Physical Therapy by Dr. Jason Hearn MD with a diagnosis of Meningioma. Date of Evaluation: 01/23/25 Physical Therapist: Rene Hurtado, DPT, OCS, CSCS Visit Plan Frequency: 2x /Week Duration: 4-6 Weeks Plan: 2x/week for 3-6 weeks IE HEP HS, quad and gastroc stretch with pics and pelvic tilt for pelvic motion. daily. treat with instruct and progress mat baseed core strength and band R LE strength HS and quad and gastroc and ankle, with pics progressing to HEP.Can progress to stand LE strength if tolerates.STM rollout to R ITB quad appropriate also. Consider pelvic prone traction in future. Subjective Subjective: Has meningioma and does strengthening ex at home. Was doing great earlier this year. Has radiation in August 2020 and recovered on dexamethozone. Retired 1.5 yrs ago and sleeps better. Problem is chronic R foot pain burning and tingling dullness. Had it since the radiation up and down. Some days 9/10 and hard to walk. Neuro at [facility]. H/o foot injections, diagnostics. Did not help. Nothing helped and was anatomically good so has just managed it with meds bc he did not want the nerves pulled out which was the next step. Is on Kepra and chlonozepam as rescue med for seizures. Typically good in the morning and sleeps well. Within 20 minutes of getting up can feel pain and worse with exertion. Has custom orthotics which helped. Bigger shoe size has helped. Does calf stretches daily and HS stretches. Does upper body work with band. Planks. Went to musculo neurologist specialist who thought calf and thigh muscle are smaller. Feels hard to pull back underneath him. Likely brain related. H/o shockwave therapy and some decompression last fall and that was his best time. Gets [id number] steps per day if he can and often better after walking. Standing on concrete is the worst without moving. No leg strengthening right now. 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 10 grandkids. Does everything. Pain R foot.: Pain Intensity (Out of 10): 2 Pain Intensity Range: 0 and 9 Comment: forefoot Objective Objective: Walks avoiding slightly R push off but I and otherwise normal. Trasnfer chair normal without UE. Bed transfer normal and I. Lumbar AROM mod limited in extension and repeated ext makes his R leg cramp up in the toes, stops immeediately. flexion adn SB are OK, pelvic motion is poor but good technique, just limited anteriorly. AROM B LE WFL, more tight R HS and quad at -30 90/90 test R vs. L, gastroc B fair at 2 DF B. hip strength 4 r and 4+ L in felxion and instabiliity in core as he tests, abd and ext 3+ B. knee strength quad 4- R and 4 L, HS 4- R and 4 L. ankles 4 B ankles in all directions. R toes 234 curl up slightly vs L but able to move them. reflexes 3/3 patella and achilles R and 2/3 L. core strength 4-/5 abs and extension is 3+. Sensation LE WNL to gross light touch B. - slump and - SLR. Good balance and gait. Balance/Special Test Scores Lower Extremity Functional Score: 61 Goals Goal 1:: I appropriate core adn LE strength via HEP to limit future problems. Goal Time Frame: 4-6 Weeks Goal 2:: Pt notice 50% improvement in R foot symptoms tightness and discomfort/cramping Goal Time Frame: 4-6 Weeks Rehabilitation Potential Physical Therapy Diagnosis: R leg tightness and weakness and back stiffness limiting comfortable funciton. Rehabilitation Potential: Good Anticipated Interventions Patient/Client Instruction: Educate patient on: Condition and Plan of Care For the Purpose of:: To decrease pain, To increase ROM, To improve nutrient delivery to tissue, To improve muscle performance and motor function and To increase tolerance to activity/condition/position Therapeutic Exercise to Include: Strength training, Postural training, Flexibilty training, Passive ROM, Active ROM and Dynamic Lumbar Stabilization For the Purpose of:: To decrease pain, To increase ROM, To improve nutrient delivery to tissue, To improve muscle performance and motor function and To increase tolerance to activity/condition/position Manual Therapy Techniques to Include: Soft tissue mobilization For the Purpose of:: To decrease pain, To increase ROM and To improve nutrient delivery to tissue Text: Thank you for the opportunity to evaluate your patient. For Medicare and Medicare HMO plans, please review the plan of care and approve it. It will need to be FAXED BACK to us at [phone] for Medicare purposes. For Medicare only, by signing this I certify the plan of care. Please let me know if there are questions or concerns regarding this plan of care. Physician Signature: Date:
--- NOTE | 2025-03-11 10:25 | HP.PTREVAL ---
Re-Evaluation Intro: Dr. Jason Hearn MD, It has been my pleasure to treat WATSON RODRIGUEZ over the last 8 visits for Meningioma. Please see the progress note below for an update on the physical therapy plan of care! Subjective Subjective: Weak leg and good spirit. Overall 70% less pain, just a dukkl ache in R leg, No more 8/10 days, peaks at 6/10. Always a 1/10. Strengthening 2-3x/week for last 3 weeks. TM has really helped 3.8 mph. Finished with chiropractor. To nuro in April. Objective Objective/Function: walks well today, R calf smalleer by 1.5 cm but walking well adn feeling better. i with gym exercises now for 3 weeks New maintenance goal with good rpognosis. Plan Plan Plan: hold chart until 04/29 neuro visit then d/c to gym ex if no concerns from patient. Balance/Gait/Functional tests Balance/Special Test Scores Lower Extremity Functional Score: 61 Goals Goals Goal 1:: I appropriate core adn LE strength via HEP to limit future problems. Goal Time Frame: 4-6 Weeks Goal Progress: Goal Met Goal 2:: Pt notice 50% improvement in R foot symptoms tightness and discomfort/cramping Goal Time Frame: 4-6 Weeks Goal Progress: 70% Goal 3:: maintain 70% ijmprvement in leg discomfort I in gym for next 6 weeks Goal Time Frame: 4-6 Weeks Anticipated Interventions Anticipated Interventions Patient/Client Instruction: Educate patient on: Condition and Plan of Care For the Purpose of:: To decrease pain, To increase ROM, To improve nutrient delivery to tissue, To improve muscle performance and motor function and To increase tolerance to activity/condition/position Therapeutic Exercise to Include: Strength training, Postural training, Flexibilty training, Passive ROM, Active ROM and Dynamic Lumbar Stabilization For the Purpose of:: To decrease pain, To increase ROM, To improve nutrient delivery to tissue, To improve muscle performance and motor function and To increase tolerance to activity/condition/position Manual Therapy Techniques to Include: Soft tissue mobilization For the Purpose of:: To decrease pain, To increase ROM and To improve nutrient delivery to tissue Re-Evaluation Ending Re-evaluation ending: Please do not hesitate to contact me at [phone] by phone or if you have questions or concerns regarding this new plan of care! Sincerely, Rene Hurtado, DPT, OCS, CSCS
--- NOTE | 2025-04-30 15:08 | HP.PTDCSUM ---
Discharge Summary D/C summary: It has been my pleasure to treat WATSON RODRIGUEZ referred by Dr. Jason Hearn MD, with the diagnosis of Meningioma for a total of 8 visit(s). Discharge Date: Please see the following information for a summary of their discharge status. Subjective Subjective: Weak leg and good spirit. Overall 70% less pain, just a dukkl ache in R leg, No more 8/10 days, peaks at 6/10. Always a 1/10. Strengthening 2-3x/week for last 3 weeks. TM has really helped 3.8 mph. Finished with chiropractor. To stephanie in April. Pain R foot.: Pain Intensity (Out of 10): 1 LB: Pain Intensity (Out of 10): 0 Overall Improvement % Improvement: 70 Objective Objective/Function: walks well today, R calf smalleer by 1.5 cm but walking well adn feeling better. i with gym exercises now for 3 weeks New maintenance goal with good rpognosis. Goals Goal 1:: I appropriate core adn LE strength via HEP to limit future problems. Goal Progress: Goal Met Goal 2:: Pt notice 50% improvement in R foot symptoms tightness and discomfort/cramping Goal Progress: 70% Goal 3:: maintain 70% ijmprvement in leg discomfort I in gym for next 6 weeks Plan Plan: hold chart until 04/29 neuro visit then d/c to gym ex if no concerns from patient. D/C Information d/c sentence: If there are questions or concerns regarding this patient's physical therapy, please feel free to call me at [phone]. Thank you for the referral of this patient. Sincerely, Rene Hurtado, DPT, OCS, CSCS Balance/Gait/Functional tests Balance/Special Test Scores Lower Extremity Functional Score: 61 Improvement % Improvement: 70
== END 2025-03-11 19:00 | disposition home or self-care (01) ==
LOC: PT 10:00
PROVIDERS: PCP Family Medicine; Referring Provider Family Medicine; Visit Provider Family Medicine
DX: D32.9 Benign neoplasm of meninges, unspecified (principal); R29.898 Other symptoms and signs involving the musculoskeletal system
CPT/HCPCS: 97012; 97110; 97163; 97164

== ENCOUNTER → 2025-05-01 | Outpatient (CLI) | payer MEDICARE, BC, SELFPAY ==
--- OUTSIDE RECORDS SUMMARY | 2025-05-01 07:07 | XMS RPT_ITS | CCD ---
Author Organization [facility] Inform ion Partnership [facility] Care Team Providers Care Oriental Rug Stretcher Name Role Phone Jamila Juan Unavailable Dr. Tito Hill Referring Provider Bogdan KASPER, MICHELLE Ventura Attending Provider Dr. Breanne Whittington Primary Care Provider Michael Ceballos Unavailable Braenne Whittington MD Primary Care Provider Pipo Aviles MD Unavailable Michael Ceballos Unavailable Breanne Whittington MD Primary Care Provider Pipo Aviles MD Unavailable Michael Ceballos Unavailable Breanne Whittington MD Primary Care Provider Dr. Breanne Whittington Primary Care Provider Dr. Breanne Whittington Referring Provider Miguel KASPER, MICHELLE Mendoza Attending Provider Miguel KASPER, MAJO-Tone Mendoza Other Provider YANCY GARCIA Other Provider Dr. Claudio Parks Attending Provider Angela Pritchard Unavailable Unavailable Michael Ceballos Unavailable Breanne Whittington MD Primary Care Provider Pipo Aviles MD Unavailable Winnie SENIOR PRODUCTION MANAGER, Angela Unavailable Unavailable MARLENE ESPOSITO Attending Unavailable YANCY CENTENO Referring UnavailBREANNE Arora Primary Care Unavailable Pk, Dr. Gomez Primary Care Provider Pk, Dr. Gomez Referring Provider Roof SUPERVISOR FURNACE PROCESS, SUPERVISOR FURNACE PROCESS-C Pedrito Ventura Attending Provider Dr. Gian Peterson Attending Provider Arielleharvey, Dr. Gian Forde Other Provider Unavailable Primary Care Provider UnavailEVELIA Jeffery Referring Unavailable TALIA CHARLTON Attending Unavailable [facility] P[facility], [facility] Referring Unavailable KEIRY DAVID Referring Unavailable NAPOLEON PAPPAS Attending Unavailable Pk, Dr. Gomez Primary Care Provider Pk, Dr. Gomez Referring Provider Dr. Gian Peterson Attending Provider [facility] [place] [place] Other Provider Dr. Gary Shepherd Attending Provider Roof SUPERVISOR FURNACE PROCESS, SUPERVISOR FURNACE PROCESS-Tone Ventura Attending Provider Breanne Whittington MD Primary Care Provider Jamie SENIOR PRODUCTION MANAGER, Angela Unavailable Unavailable Pipo Aviles MD Unavailable Haagen MERCHANT BANKER.Claudia VILLAREAL Unavailable Suppan MERCHANT BANKER.MONO, Fouzia A Unavailable Suppan MERCHANT BANKER.FARMWORKER VEGETABLE, Fouzia A Unavailable Suppan MERCHANT BANKER.MONO, Fouzia A Unavailable JUDY LEZAMA Attending Unavailable PROVIDER, UNKNOWN Referring Unavailable BREANNE WHITTINGTON Primary Care Unavailable YANCY CENTENO Attending UnavailBREANNE Arora Primary Care Unavailable BREANNE WHITTINGTON Attending Unavailable BREANNE WHITTINGTON Primary Care Unavailable BREANNE WHITTINGTON Primary Care Unavailable BREANNE WHITTINGTON Referring Unavailable BREANNE WHITTINGTON Primary Care Unavailable YANCY CENTENO Attending Unavaila DAVION Ramos Attending Unavailable DAVION SAMAYOA Referring Unavailable PK, BREANNE Abarca Primary Care Unavailable PK, BREANNE J Primary Care Unavailable LAKISHA JUNIOR Attending Unavailable PK, BREANNE J Primary Care Unavailable LAKISHA JUNIOR Referring Unavailable PK, BREANNE J Primary Care Unavailable FOUZIA AMADO Attending Unavailable PK, BREANNE Abarca Primary Care Unavailable PK, BREANNE J Referring Unavailable PK, BREANNE J Primary Care Unavailable DEVLIN-CHERY, YANCY Referring Unavaila ble PK, BREANNE J Primary Care Unavailable PK, BREANNE J Referring Unavailable SLEDAVION OLIVAREZ Referring Unavailable PK, BREANNE J Primary Care Unavailable PK, BREANNE J Attending Unavailable PK, BREANNE J Primary Care Unavailable DEVLIN-CHERY, YANCY Attending Unavaila ble PK, BREANNE J Referring Unavailable PK, BREANNE J Primary Care Unavailable HENOK WARREN Attending Unavailable FOUZIA AMADO Attending Unavailable PK, BREANNE Abarca Primary Care Unavailable PK, BREANNE J Primary Care Unavailable DEVLIN-CHERY, YANCY Attending Unavaila LAKISHA Villalpando Attending Unavailable PK, BREANNE J Primary Care Unavailable PIPO AVILES Attending Unavailable DEVLIN-CHERY, YANCY Referring Unavaila ble PK, BREANNE Abarca Primary Care Unavailable [place], Breanne Primary Care Unavailable Pk, Breanne Attending Unavailable [place], Breanne Referring Unavailable [place], Breanne Primary Care Unavailable Hoang Sauceda Attending Unavailable Hoang Sauceda Referring Unavailable Gary Shepherd Attending Unavailable Pk, Breanne Primary Care Unavailable Pk, Breanne Primary Care Unavailable Pk, Breanne Referring Unavailable Hoang Sauceda Attending Unavailable Allergies Allergy Classification Reported Allergen(s) Allergy Type Date of Onset Reaction(s) Facility (1 source) atorvastatin Drug Allergy 4 myalgias [facility] Work Phone: (20 sources) atorvastatin; Translations: [ATORVASTATIN] Drug Allergy 4 Myalgia, Other: See Comments [facility] (1 source) atorvastatin Drug Allergy 4 Muscle Rigidity [facility] (1 source) atorvastatin Drug Allergy 4 [facility] Repository Medications Current Medications Medication Drug Class(es) Dates Sig (Normalized) Sig (Original) amoxicillin 875 mg / clavulanate 125 mg oral tablet (2 sources) Penicillin-class Antibacterial Start: 04-18-2024 End: 04-28-2024 take 1 tablet by mouth twice daily amoxicillin-clavu lanate potassium (AUGMENTIN) 875-125 mg per tablet Indications: Acute maxillary sinusitis, recurrence not specified Take 1 tablet by mouth two times a day for 10 days. 20 tablet 04/18/2024 04/28/2024 Active aspirin 81 mg delayed release oral tablet (20 sources) Nonsteroidal Anti-inflammatory Drug Start: 01-20-2013 take 1 tablet by mouth once daily ASPIRIN 81 MG TABS One tablet by mouth daily ASPIRIN [id number] Luke Prince Lambert BREWSTER Start: 05-21-2009 aspirin(ADULT LOW DOSE ASPIRIN 81 MG TAB, DELAYED RELEASE) Take one(1) tablet daily. 0 05/21/2009 Active Comment on above: Take one(1) tablet d ailcristo. clonazePAM 1 mg disintegrating oral tablet (20 sources) Benzodiazepine Start: End: take 1 tablet by mouth three times daily as needed clonazePAM orally disintegrating (KLONOPIN WAFER) 1 mg disintegrating tablet Indications: Recurrent seizures (HCC) , Meningioma (HCC) , Seizure (HCC) Dissolve 1 tablet under the tongue three times a day as needed for up to 30 days. 30 tablet 2 05/22/2024 Active Start: 06-01-2023 End: 05-22-2024 take 1 tablet by mouth three times daily as needed clonazePAM orally disintegrating (KLONOPIN WAFER) 1 mg disintegrating tablet Indications: Recurrent seizures (HCC) , Meningioma (HCC) , Seizure (HCC) DISSOLVE 1 TABLET IN MOUTH THREE TIMES DAILY NEEDED (SEIZURES) FOR UP TO 30 DAYS 30 tablet 2 06/01/2023 05/22/2024 Discontinued Start: 04-30-2023 End: 05-30-2023 take 1 tablet by mouth three times daily as needed clonazePAM orally disintegrating (KLONOPIN WAFER) 1 mg disintegrating tablet Indications: Recurrent seizures (HCC) , Meningioma (HCC) , Seizure (HCC) Dissolve 1 tablet under the tongue three times a day as needed (seizures) for up to 30 days. 30 tablet 2 04/30/2023 05/30/2023 Active Start: 12-25-2022 clonazePAM 1 M G Tab Dispersible Place 1 tablet under tongue Every 8 hours as needed. 0 12/25/2022 Active Start: 07-21-2021 take 1 mg by mouth once daily Clonazepam Active 1 MG PO DAILY July 21, 2021 12:00am Start: 06-22-2021 take 1 tablet by gloria th three times daily as needed clonazePAM orally disintegrating (KLONOPIN WAFER) 1 mg disintegrating tablet Indications: Meningioma (HCC) , Recurrent seizures (HCC) Take 1 tablet by mouth three times daily as needed (seizures) for up to 30 days. 30 tablet 1 06/22/2021 Active Start: 05-16-2021 End: 01-24-2023 take 1 tablet by mouth three times daily as needed clonazePAM orally disintegrating (KLONOPIN WAFER) 1 mg disintegrating tablet Indications: Recurrent seizures (HCC) , Meningioma (HCC) , Seizure (HCC) Dissolve 1 tablet under the tongue three times daily as needed (seizures) for up to 30 days. 30 tablet 2 02/06/2022 12/24/2022 Discontinued Comment on above: Take 1 tablet by gloria th three times daily as needed (seizures) for up to 30 days. Dissolve 1 mg under the tongue as needed. Dissolve 1 tablet un luis the tongue three times daily as needed (seizures) for up to 30 days. Dissolve 1 tablet un luis the tongue three times a day as needed (seizures) for up to 30 days. DISSOLVE 1 TABLET IN MOUTH THREE TIMES DAILY NEEDED (SEIZURES) FOR UP TO 30 DAYS CPAP (20 sources) Start: 01-31-2021 CPAP Initiate Auto PAP @ 5-20 cm of water with humidification. Mask (per patient preference) optional chin strap (if indicated) , filters, tubing, humidifier and lifetime supplies. 1 Device 01/31/2021 Active Start: 01-31-2021 CPAP Initiate Auto PAP @ 5-20 cm of water with humidification. Mask (per patient preference) optional chin strap (if indicated) , filters, tubing, humidifier and lifetime supplies. 1 Device 0 01/31/2021 Active Comment on above: Initiate Auto PAP @ 5-20 cm of water with humidification. Mask (per patient preference) optional chin strap (if indicated) , filters, tubing, humidifier and lifetime supplies. CPAP/BIPAP/OTHER (20 sources) Start: 09-17-2024 End: 02-02-2052 CPAP/BIPAP/OTHER Indications: MELL on CPAP APAP 5-20 cmH2O DME [facility] 1 each 09/17/2024 02/02/2052 Active Start: 09-11-2023 End: 09-17-2024 CPAP/BIPAP/OTHER Indications : MELL on CPAP , Symptomatic localization-related epilepsy (HCC) , History of myocardial infarction Type .CPAPSettings into a note to see current settings/supplies/DME information. 1 Each 09/11/2023 09/17/2024 Discontinued Start: 09-11-2023 End: 01-26-2051 CPAP/BIPAP/OTHER Indications : MELL on CPAP , Symptomatic localization-related epilepsy (HCC) , History of myocardial infarction Type .CPAPSettings into a note to see current settings/supplies/DME information. 1 Each 09/11/2023 01/26/2051 Active Start: 09-11-2023 End: 01-26-2051 CPAP/BIPAP/OTHER Indications : MELL on CPAP , Symptomatic localization-related epilepsy (HCC) , History of myocardial infarction Type .CPAPSettings into a note to see current settings/supplies/DME information. 1 Each 0 09/11/2023 01/26/2051 Active Start: 04-25-2023 End: 09-17-2024 CPAP/BIPAP/OTHER Indications : MELL on CPAP MASK REFITTING. Continue Auto CPAP with current settings of 5-20 cm H2O. Lifetime supplies for Auto CPAP, including patient preferred mask, head gear, heated tubing, humidity, filters, chin strap. Dx: Obstructive Sleep Apnea G47.33 DME: [facility] ph [phone] fax# [phone] Fax download reports to [phone]. 04/25/2023 09/17/2024 Discontinued Start: 04-25-2023 End: 09-09-2050 CPAP/BIPAP/OTHER Indications : MELL on CPAP MASK REFITTING. Continue Auto CPAP with current settings of 5-20 cm H2O. Lifetime supplies for Auto CPAP, including patient preferred mask, head gear, heated tubing, humidity, filters, chin strap. Dx: Obstructive Sleep Apnea G47.33 DME: [facility] ph [phone] fax# [phone] Fax download reports to [phone]. 04/25/2023 09/09/2050 Active Start: 04-25-2023 End: 09-09-2050 CPAP/BIPAP/OTHER Indications : MELL on CPAP MASK REFITTING. Continue Auto CPAP with current settings of 5-20 cm H2O. Lifetime supplies for Auto CPAP, including patient preferred mask, head gear, heated tubing, humidity, filters, chin strap. Dx: Obstructive Sleep Apnea G47.33 DME: [facility] [phone] fax# [phone] Fax download reports to [phone]. 0 04/25/2023 09/09/2050 Active Start: 03-19-2023 End: 04-25-2023 CPAP/BIPAP/OTHER Indications : MELL on CPAP Continue Auto CPAP with current settings of 5-20 cm H2O. Lifetime supplies for Auto CPAP, including patient preferred mask, head gear, heated tubing, humidity, filters, chin strap. Dx: Obstructive Sleep Apnea G47.33 DME: [facility] Fax download reports to [phone]. 1 Each 0 03/19/2023 04/25/2023 Discontinued Start: 03-19-2023 End: 08-03-2050 CPAP/BIPAP/OTHER Indications : MELL on CPAP Continue Auto CPAP with current settings of 5-20 cm H2O. Lifetime supplies for Auto CPAP, including patient preferred mask, head gear, heated tubing, humidity, filters, chin strap. Dx: Obstructive Sleep Apnea G47.33 DME: [facility] Fax download reports to [phone]. 1 Each 0 03/19/2023 08/03/2050 Active Start: 11-30-2022 End: 04-25-2023 CPAP/BIPAP/OTHER Indications : MELL on CPAP PLEASE PROVIDE DREAMWEAR FFM (MEDIUM) Lifetime supplies for PAP tx, including patient preferred mask, head gear, heated tubing, humidity, filters, chin strap. Dx: Obstructive Sleep Apnea G47.33 DME: [facility] Fax download reports to [phone]. 1 Each 0 11/30/2022 04/25/2023 Discontinued Start: 11-30-2022 End: 04-16-2050 CPAP/BIPAP/OTHER Indications : MELL on CPAP PLEASE PROVIDE DREAMWEAR FFM (MEDIUM) Lifetime supplies for PAP tx, including patient preferred mask, head gear, heated tubing, humidity, filters, chin strap. Dx: Obstructive Sleep Apnea G47.33 DME: [facility] Fax download reports to [phone]. 1 Each 0 11/30/2022 04/16/2050 Active Start: 11-20-2022 End: 04-25-2023 CPAP/BIPAP/OTHER Indications : MELL on CPAP Continue Auto CPAP with current settings of 5-20 cm H2O. Lifetime supplies for Auto CPAP, including patient preferred mask, head gear, heated tubing, humidity, filters, chin strap. Dx: Obstructive Sleep Apnea G47.33 DME: [facility] 1 Each 0 11/20/2022 04/25/2023 Discontinued Start: 11-20-2022 End: 04-06-2050 CPAP/BIPAP/OTHER Indications : MELL on CPAP Continue Auto CPAP with current settings of 5-20 cm H2O. Lifetime supplies for Auto CPAP, including patient preferred mask, head gear, heated tubing, humidity, filters, chin strap. Dx: Obstructive Sleep Apnea G47.33 DME: [facility] 1 Each 0 11/20/2022 04/06/2050 Active Comment on above: Continue Auto CPAP w ith current settings of 5-20 cm H2O. Lifetime supplies for Auto CPAP, including patient preferred mask, head gear, heated tubing, humidity, filters, chin strap. Dx: Obstructive Sleep Apnea G47.33 DME: [facility] PLEASE PROVIDE DREAM WEAR FFM (MEDIUM) Lifetime supplies for PAP tx, including patient preferred mask, head gear, heated tubing, humidity, filters, chin strap. Dx: Obstructive Sleep Apnea G47.33 DME: [facility] Fax download reports to [phone]. Continue Auto CPAP w ith current settings of 5-20 cm H2O. Lifetime supplies for Auto CPAP, including patient preferred mask, head gear, heated tubing, humidity, filters, chin strap. Dx: Obstructive Sleep Apnea G47.33 DME: [facility] Fax download reports to [phone]. MASK REFITTING. Continue Auto CPAP with current settings of 5-20 cm H2O. Lifetime supplies for Auto CPAP, including patient preferred mask, head gear, heated tubing, humidity, filters, chin strap. Dx: Obstructive Sleep Apnea G47.33 DME: [facility] ph [phone] fax# [phone] Fax download reports to [phone]. dexamethasone 2 mg oral tablet (20 sources) Corticosteroid Start: 2021 End: 2024 dexAMETHasone (DECADRON) 2 mg tablet Indications: Meningioma (HCC) , Brain edema (HCC) , Seizure (HCC) 2 mg the day prior to the flight, the day of the flight and the day after the flight. 15 tablet 2 06/26/2024 Active Comment on above: Take two tablets (4m g) twice a day with meals x 7 days Take two tablets (4 mg) in the AM and one tablet (2 mg) in the PM x 3 days Take one table (2 mg) twice a day with meals x 2 days Take one tablet (2 mg) once a day x 2 days then stop 2 mg the day prior t o the flight, the day of the flight and the day after the flight. doxycycline hyclate 100 mg oral tablet (1 source) Tetracycline-class Drug Start: 2023 End: 2023 take 1 tablet by mouth twice daily doxycycline (VIBRA-TABS) 100 mg tablet Take 1 tablet by mouth two times a day for 10 days. 20 tablet 03/31/2024 04/10/2024 Active iv contrast (will be provided with radiology test) (8 sources) Start: 2024 End: 2024 inject 1 dose intravenously once iv contrast (will be provided with radiology test) Indications: Meningioma (HCC) MRI Brain Inject, intravenously, once for 1 dose.No IV access, insert saline lock prior to beginning of sedation, infusion, injection of imaging exam.Discontinue saline lock post exam. If Pt. has a central line or IVAD, may access for administration according to line specific nursing protocol.Once exam is complete flush line and de-access according to line specific nursing protocol in the MR contrast administration guidelines link 1 each 09/03/2024 09/04/2024 Active Start: 09-17-2023 End: 09-18-2023 inject 1 dose intravenously once iv contrast (will be provided with radiology test) Indications: Meningioma (HCC) MRI Brain Inject, intravenously, once for 1 dose.No IV access, insert saline lock prior to beginning of sedation, infusion, injection of imaging exam.Discontinue saline lock post exam. If Pt. has a central line or IVAD, may access for administration according to line specific nursing protocol.Once exam is complete flush line and de-access according to line specific nursing protocol in the MR contrast administration guidelines link 1 Each 0 09/17/2023 09/18/2023 Start: 09-17-2023 End: 09-18-2023 inject 1 dose intravenously once iv contrast (will be provided with radiology test) Indications: Meningioma (HCC) MRI Brain Inject, intravenously, once for 1 dose.No IV access, insert saline lock prior to beginning of sedation, infusion, injection of imaging exam.Discontinue saline lock post exam. If Pt. has a central line or IVAD, may access for administration according to line specific nursing protocol.Once exam is complete flush line and de-access according to line specific nursing protocol in the MR contrast administration guidelines link 1 Each 0 09/17/2023 09/18/2023 Active Start: 08-03-2022 End: 08-04-2022 inject 1 dose intravenously once iv contrast (will be provided with radiology test) Indications: Meningioma (HCC) MRI Brain Inject, intravenously, once for 1 dose.No IV access, insert saline lock prior to beginning of sedation, infusion, injection of imaging exam.Discontinue saline lock post exam. If Pt. has a central line or IVAD, may access for administration according to line specific nursing protocol.Once exam is complete flush line and de-access according to line specific nursing protocol in the MR contrast administration guidelines link 1 Each 0 08/03/2022 08/04/2022 Active Start: 04-24-2022 End: 04-25-2022 inject 1 dose intravenously once iv contrast (will be provided with radiology test) Indications: Benign neoplasm of meninges (HCC) , Atypical meningioma of brain (HCC) MRI Brain Inject, intravenously, once for 1 dose.No IV access, insert saline lock prior to beginning of sedation, infusion, injection of imaging exam.Discontinue saline lock post exam. If Pt. has a central line or IVAD, may access for administration according to line specific nursing protocol.Once exam is complete flush line and de-access according to line specific nursing protocol in the MR contrast administration guidelines link 1 Each 0 04/24/2022 04/25/2022 Active Start: 02-09-2022 End: 02-10-2022 inject 1 dose intravenously once iv contrast (will be provided with radiology test) Indications: Meningioma (HCC) MRI Brain Inject, intravenously, once for 1 dose.No IV access, insert saline lock prior to beginning of sedation, infusion, injection of imaging exam.Discontinue saline lock post exam. If Pt. has a central line or IVAD, may access for administration according to line specific nursing protocol.Once exam is complete flush line and de-access according to line specific nursing protocol in the MR contrast administration guidelines link 1 Each 0 02/09/2022 02/10/2022 Active Start: 01-17-2022 End: 01-18-2022 iv contrast (will be provide d with radiology test) MRI ankle RT Inject, intravenously, once for 1 dose. No IV access, insert saline lock prior to the beginning of sedation, infusion, injection of imaging exam. Discontinue saline lock post exam. If Pt. has a central line or IVAD, may access for administration according to line specific nursing protocol. Once exam is complete flush line and de-access according to line specific nursing protocol in the MR contrast administration guidelines link. 1 Each 0 01/17/2022 01/18/2022 Active Comment on above: MRI ankle RT Inject, intravenously, once for 1 dose. No IV access, insert saline lock prior to the beginning of sedation, infusion, injection of imaging exam. Discontinue saline lock post exam. If Pt. has a central line or IVAD, may access for administration according to line specific nursing protocol. Once exam is complete flush line and de-access according to line specific nursing protocol in the MR contrast administration guidelines link. MRI Brain Inject, in travenously, once for 1 dose.No IV access, insert saline lock prior to beginning of sedation, infusion, injection of imaging exam.Discontinue saline lock post exam. If Pt. has a central line or IVAD, may access for administration according to line specific nursing protocol.Once exam is complete flush line and de-access according to line specific nursing protocol in the MR contrast administration guidelines link levETIRAcetam 500 mg oral tablet (20 sources) Start: 10-25-19 End: 03-23-20 take 1 tablet by mouth twice daily levETIRAcetam (KEPPRA) 250 mg tablet Indications: Seizures (HCC) , Meningioma (HCC) Take 1 tablet by mouth two times a day. Please add this dose to your current dose of levetiracetam. The total daily dose, will be 1250 mg twice a day. 60 tablet 4 10/24/2024 03/23/2025 Active Start: 02-23-2023 End: 01-19-2025 levETIRAcetam (KEPPRA) 500 m g tablet Indications: Meningioma (HCC) , Brain edema (HCC) , Seizures (HCC) , Malignant neoplasm metastatic to brain (HCC) Take 2 tablets (500 mg) twice daily with one other tablet strength (250 mg) for a total of 1250 mg twice daily 360 tablet 3 01/19/2025 Active Start: 02-17-2023 End: 02-23-2023 take 1.5 tablets by mouth twice daily levETIRAcetam (KEPPRA) 500 mg tablet Indications: Meningioma (HCC) , Seizure (HCC) , Brain edema (HCC) Take 1.5 tablets by mouth two times a day. 270 tablet 3 02/17/2023 02/23/2023 Discontinued Start: 01-04-2023 take 1 tablet by [facility] twice daily Levetiracetam (Keppra) 750 mg tablet Active 750 MG PO TWICE A DAY January 03, 2023 11:00pm Start: 09-11-2022 End: 02-17-2023 levETIRAcetam (KEPPRA) 500 m g tablet Indications: Meningioma (HCC) , Seizure (HCC) , Brain edema (HCC) TAKE ONE AND ONE-HALF TABLETS TWICE A DAY 270 tablet 3 09/11/2022 02/17/2023 Discontinued Start: 04-11-2022 End: 11-13-2022 take 2 tablets by mouth twice daily levETIRAcetam (KEPPRA) 500 mg tablet Indications: Meningioma (HCC) , Brain edema (HCC) , Seizures (HCC) , Malignant neoplasm metastatic to brain (HCC) Take 2 tablets by mouth two times a day. 360 tablet 11 02/23/2023 Active Start: 02-08-2022 End: 01-04-2023 take 1750 mg by mouth once daily Levetiracetam Discontinued 1750 MG PO DAILY February 07, 2022 11:00pm January 04, 2023 8:43am Start: 11-21-2021 End: 04-09-2022 take 1.5 tablets by mouth twice daily levETIRAcetam (KEPPRA) 500 mg tablet Indications: Meningioma (HCC) , Seizure (HCC) , Brain edema (HCC) Take 1.5 tablets by mouth twice daily. 90 tablet 4 11/21/2021 04/09/2022 Discontinued Start: 08-23-2021 End: 11-21-2021 take 1 tablet by mouth twice daily levETIRAcetam (KEPPRA) 500 mg tablet Indications: Meningioma (HCC) , Brain edema (HCC) , Seizure (HCC) Take 1 tablet by mouth twice daily. 90 tablet 2 08/23/2021 11/21/2021 Discontinued Start: 11-17-2020 End: 07-21-2021 take 2 tablets by mouth twice daily Levetiracetam (Keppra) 500 mg tablet Discontinued 1000 MG PO TWICE A DAY November 17, 2020 12:57pm July 21, 2021 10:43am Start: 09-27-2020 End: 11-17-2020 Levetiracetam (Keppra) 500 m g tablet Discontinued 500 MG PO THREE TIMES A DAY September 26, 2020 11:00pm November 17, 2020 12:58pm 500 mg am, 250 mg noon, 500 mg pm Comment on above: Take 1 tablet by gloria th twice daily. Take 1.5 tablets by mouth twice daily. Take 2 tablets by mo uth twice daily. TAKE ONE AND ONE-SAMANTHA F TABLETS TWICE A DAY Take 1.5 tablets by mouth two times a day. Take 2 tablets by mo uth two times a day. Multiple Vitamins-Minerals (Multivitamin Adults 50+) tablet (1 source) Start: 0 take 1 tablet by mouth once daily Multiple Vitamins-Minerals (Multivitamin Adults 50+) tablet Take 1 tablet by mouth daily. 0 05/14/2009 Active Multivitamin capsule (20 sources) take 1 capsule by mouth once daily Multivitamin capsule Take 1 capsule by mouth once daily. Active take 1 capsule by mouth once danielle ly Multivitamin capsule Take 1 capsule by mouth once daily. 0 Active Comment on above: Take 1 capsule by mo ut once daily. Multivitamin preparation (6 sources) Start: 02-02-2017 Multivitamin Active 1 EACH PO DAILY February 02, 2017 12:16pm Start: 02-02-2017 Multivitamin A ctive 1 EACH PO DAILY February 01, 2017 11:00pm Start: 02-02-2017 Multivitamin A ctive 1 EACH PO DAILY February 02, 2017 12:00am nitroglycerin 0.4 mg sublingual tablet (16 sources) Nitrate Vasodilator Start: 12-26-2021 End: 01-02-2022 Nitroglycerin Active 0.4 MG SL every 5 to 15 minutes January 02, 2022 4:05pm Start: 02-02-2017 End: 12-26-2021 Nitroglycerin Discontinued 0 .4 MG SL NEEDED February 01, 2017 11:00pm December 26, 2021 2:28pm Start: 01-20-2013 NITROGLYCERIN 0.4 MG SUBL 1 tablet under the tongue every 5 minutes times 3 as needed for chest pain. NITROGLYCERIN [id number] Gary Shepherd MD polyethylene glycol 3350 842249 mg / potassium chloride 2970 mg / sodium bicarbonate 6740 mg / sodium chloride 5860 mg / sodium sulfate 78868 mg powder for oral solution (2 sources) Osmotic Laxative Start: 12-07-2023 End: 12-07-2023 peg 3350-Electrolytes (GOLYTELY) 236-22.74-6.74 -5.86 gram suspension Indications: History of colonic polyps Take 4,000 mL by mouth one time only for 1 dose. Refer to printed prep instructions from your provider. 4000 mL 0 12/07/2023 12/07/2023 Active Start: 12-26-2022 End: 12-26-2022 peg 3350-Electrolytes (GOLYT ELIJAH) 236-22.74-6.74 -5.86 gram suspension Take 4,000 mL by mouth one time only for 1 dose. 1 Each 0 12/26/2022 12/26/2022 Comment on above: Take 4,000 mL by gloria th one time only for 1 dose. rosuvastatin calcium 40 mg oral tablet (20 sources) HMG-CoA Reductase Inhibitor Start: 10-13-2011 End: 03-12-2023 rosuvastatin (CRESTOR) 40 mg tablet Take 40 mg by mouth. 06/24/2020 Active Comment on above: Take 40 mg by mouth. sildenafil 100 mg oral tablet (20 sources) Phosphodiesterase 5 Inhibitor Start: 11-04-2021 End: 05-21-2023 sildenafil (VIAGRA) 100 mg tablet Take 1 pill 1 hour prior to sexual activity on empty stomach 30 tablet 5 05/22/2023 Active Start: 04-14-2017 End: 11-04-2021 take 1 tablet by mouth once daily Sildenafil (Viagra) 50 mg tablet Active 50 MG PO daily April 14, 2017 12:00am Start: 12-26-2016 VIAGRA 50 MG T ABS Take as Directed: SILDENAFIL CITRATE [id number] Ale Walden RN Comment on above: Take 50 mg by mouth as needed. Take 1 tablet by gloria th as needed. Take 1 pill 1 hour p rior to sexual activity on empty stomach Completed/Discontinued Medications Medication Drug Class(es) Dates Sig (Normalized) Sig (Original) acetaminophen 325 mg / HYDROcodone bitartrate 5 mg oral tablet (7 sources) Opioid Agonist Start: 02-16-2017 NORCO 5-325 MG TABS 1 tab every 6 hours as needed for pain HYDROCODONE-ACETAMI RIGOBERTO [id number] Gian Peterson MD Start: 02-12-2017 End: 09-14-2017 take 1 tablet by mouth every six hours as needed Hydrocodone-Acetaminophen Discontinued 1 TABLET PO EVERY 6 HOURS NEEDED February 11, 2017 11:00pm September 14, 2017 1:00pm calcium chloride 0.0014 meq/ml / potassium chloride 0.004 meq/ml / sodium chloride 0.103 meq/ml / sodium lactate 0.028 meq/ml injectable solution (1 source) Start: 06-09-2024 End: 06-09-2024 take 30 mL intravenously every hour 30 mL/hr, INTRAVENOUS, CONTINUOUS, Starting on Sun06/09/24 at 1100, Until Sun06/09/24 at 1146, Preprocedure calcium citrate 1500 mg / cholecalciferol 250 unt oral tablet (7 sources) Vitamin D Start: 04-14-2017 End: 09-14-2017 take 1 tablet by mouth three times weekly Calcium Citrate-Vitamin D3 (Citracal + D Maximum) 315-250 mg-unit tablet Discontinued 1 TABLET PO .Three times weekly April 14, 2017 12:00am September 14, 2017 1:01pm Start: 12-01-2014 take 1 tablet by gloria th three times weekly CITRACAL MAXIMUM 315-250 MG-UNIT TABS One tablet by mouth three times a week CALCIUM CITRATE-VITAMIN D [id number] Gary Shepherd MD carvedilol 3.125 mg oral tablet (2 sources) alpha-Adrenergic Barbara, beta-Adrenergic Barbara Start: 01-20-2013 End: 03-04-2013 take 1 tablet by mouth twice daily COREG 3.125 MG TABS One tablet by mouth twice daily CARVEDILOL [id number] Gary Shepherd MD clopidogrel 75 mg oral tablet (20 sources) [id number] Platelet Inhibitor Start: 01-20-2013 End: 02-08-2022 take 75 mg by mouth once daily Clopidogrel Discontinued 75 MG PO DAILY March 21, 2021 10:06am February 08, 2022 2:10pm Comment on above: Take 75 mg by mouth once daily. famotidine 20 mg oral tablet (4 sources) Histamine-2 Receptor Antagonist Start: 07-25-2021 take 1 tablet by mouth twice daily famotidine (PEPCID) 20 mg tablet Indications: Benign neoplasm of meninges (HCC) , Meningioma (HCC) Take 1 tablet by mouth twice daily. Take while on dexamethasone 28 tablet 0 07/25/2021 Active Comment on above: Take 1 tablet by gloria twice daily. Take while on dexamethasone furosemide 40 mg oral tablet (6 sources) Loop Diuretic Start: 09-27-2020 End: 11-17-2020 take 1 tablet by mouth once daily Furosemide (Lasix) 40 mg tablet Discontinued 40 MG PO DAILY September 26, 2020 11:00pm November 17, 2020 12:57pm gabapentin 300 mg oral capsule (12 sources) Anti-epileptic Agent Start: 06-27-2022 End: 08-17-2023 gabapentin (NEURONTIN) 300 mg capsule Indications: Meningioma (HCC) , Nerve pain , Pain in right foot Titration: Week 1: 300 mg at bedtime; Week 2: 300 mg pm, and 300 mg at bedtime, and stay on that dose until further recommendations. Please call MD on the 3rd week to get further advice on the dose. 60 capsule 1 06/27/2022 08/17/2022 Discontinued Comment on above: Titration: Week 1: 3 00 mg at bedtime; Week 2: 300 mg pm, and 300 mg at bedtime, and stay on that dose until further recommendations. Please call MD on the 3rd week to get further advice on the dose. lacosamide 200 mg oral tablet (20 sources) Anti-epileptic Agent Start: 02-08-2022 End: 11-07-2022 take 200 mg by mouth twice daily Lacosamide Discontinued 200 MG PO TWICE A DAY February 07, 2022 11:00pm November 07, 2022 1:59pm Start: 11-21-2021 End: 09-10-2023 lacosamide (VIMPAT) 100 mg t ab Indications: Meningioma (HCC) , Seizure (HCC) Take 200 Mg BID 360 tablet 4 02/01/2022 06/19/2022 Discontinued Start: 07-21-2021 End: 02-08-2022 take 1 tablet by mouth twice daily Lacosamide (Vimpat) 50 mg tablet Discontinued 150 MG PO TWICE A DAY July 21, 2021 12:00am February 08, 2022 2:10pm Start: 06-30-2021 End: 10-06-2022 lacosamide (VIMPAT) 50 mg ta b Indications: Meningioma (HCC) , Seizure (HCC) Take 200 mg BID (give the 50 mg tabs) 360 tablet 4 10/07/2021 11/21/2021 Discontinued (Dosage adjustment) Comment on above: Take 200 mg BID (giv e the 50 mg tabs) Take 4 tablets by mo uth twice daily for 14 days. Take 200 Mg BID lovastatin 40 mg oral tablet (6 sources) HMG-CoA Reductase Inhibitor Start: 02-02-2017 End: 04-14-2017 take 40 mg by mouth once daily Lovastatin Discontinued 40 MG PO DAILY February 01, 2017 11:00pm April 14, 2017 12:07pm metoprolol tartrate 25 mg oral tablet (4 sources) beta-Adrenergic Barbara Start: 03-19-2013 End: 04-03-2013 take 0.5 tablet by mouth twice daily METOPROLOL TARTRATE 25 MG TABS One-half tablet by mouth twice daily METOPROLOL TARTRATE [id number] Gisele Mar RN Start: 02-17-2013 End: 03-04-2013 METOPROLOL TARTRATE 25 MG TA BS bid METOPROLOL TARTRATE [id number] Gary Shepherd MD metroNIDAZOLE 250 mg oral tablet (6 sources) Nitroimidazole Antimicrobial Start: 02-12-2017 End: 09-11-2017 take 250 mg by mouth three times daily Metronidazole Discontinued 250 MG PO THREE TIMES A DAY February 11, 2017 11:00pm September 11, 2017 10:12am midazolam 50 mg/ml nasal spray (20 sources) Benzodiazepine Start: 02-08-2022 End: 11-07-2022 Midazolam (Nayzilam) 5 mg/spray (0.1 mL) spray,non-aerosol Discontinued 1 SPRAY INTRANASAL ONCE February 07, 2022 11:00pm November 07, 2022 2:00pm Start: 08-23-2021 End: 02-06-2023 midazolam (NAYZILAM) 5 mg/sp ray (0.1 mL) nasal spray Indications: Recurrent seizures (HCC) Use 1 spray in one nostril as needed for seizures. May repeat dose in alternate nostril after 10 minutes based on response and tolerability. Only take for seizures lasting more than 3 minutes or more than 3 seizures in an hour 2 Each 2 02/06/2022 11/20/2022 Discontinued (Discontinued by Patient) Start: 01-12-2021 End: 01-12-2022 midazolam (NAYZILAM) 5 mg/sp ray (0.1 mL) nasal spray Indications: Recurrent seizures (HCC) Use 1 spray in one nostril as needed for seizures. May repeat dose in alternate nostril after 10 minutes based on response and tolerability. Only take for seizures lasting more than 3 minutes or more than 3 seizures in an hour 2 [place] 2 01/12/2021 01/12/2022 Active Comment on above: Use 1 spray in one n ostril as needed for seizures. May repeat dose in alternate nostril after 10 minutes based on response and tolerability. Only take for seizures lasting more than 3 minutes or more than 3 seizures in an hour Use 1 spray in one n ostril as needed for seizures. May repeat dose in alternate nostril after 10 minutes based on response and tolerability. Only take for seizures lasting more than 3 minutes or more than 3 seizures in an hour MULTIPLE VITAMIN (1 source) Start: 4 take 1 tablet by mouth once daily MULTIVITAMINS TABS One tablet by mouth daily MULTIPLE VITAMIN Gary Anselmo Shepherd MD MULTIPLE VITAMINS-MINERALS (2 sources) Start: 4 take 1 tablet by mouth once daily OCUVITE PRESERVISION TABS One tablet by mouth daily MULTIPLE VITAMINS-MINERALS Gary Shepherd MD Start: 06-05-2013 End: 05-28-2014 take 1 tablet by mouth once daily OCUVITE PRESERVISION TABS One tablet by mouth daily MULTIPLE VITAMINS-MINERALS Gary Shepherd MD pentoxifylline 400 mg extended release oral tablet (20 sources) Blood Viscosity Invoicing Machine Operator Start: 05-23-2021 End: 11-07-2022 take 400 mg by mouth three times daily Pentoxifylline Discontinued 400 MG PO THREE TIMES A DAY July 21, 2021 12:00am November 07, 2022 1:59pm Comment on above: Take 1 tablet by gloria th three times daily with meals. pravastatin sodium 80 mg oral tablet (2 sources) HMG-CoA Reductase Inhibitor Start: 01-20-2013 End: 03-30-2014 take 1 tablet by mouth at bedtime PRAVACHOL 80 MG TABS One tablet by mouth at bedtime. PRAVASTATIN SODIUM [id number] Gary Shepherd MD rOPINIRole 0.5 mg oral tablet (6 sources) Nonergot Dopamine Agonist Start: 07-27-2020 End: 07-21-2021 take 0.5 mg by mouth at bedtime as needed Ropinirole Discontinued 0.5 MG PO AT BEDTIME NEEDED July 26, 2020 11:00pm July 21, 2021 10:44am Turmeric extract (7 sources) End: 03-09-2024 turmeric ([facility] [facility] 1,000 mg two times a day. 03/09/2024 Discontinued (Course of therapy completed) turmeric (CURCUM IN [facility] 1,000 mg two times a day. Active turmeric (CURCUM IN [facility]) 1,000 mg two times a day. 0 Active vitamin b6 100 mg oral tablet (9 sources) Start: 09-14-2021 End: 11-07-2021 take 1 tablet by mouth once daily pyridoxine, vitamin B6, (VITAMIN B-6) 100 mg tablet Take 1 tablet by mouth once daily. 30 tablet 11 09/14/2021 11/07/2021 Discontinued Comment on above: Take 1 tablet by gloria once daily. vitamin e 180 mg oral capsule (20 sources) Start: 02-08-2022 End: 11-07-2022 take 180 mg by mouth once daily Vitamin E (Dl, Acetate) Discontinued 180 MG PO DAILY February 08, 2022 2:12pm November 07, 2022 2:00pm Start: 10-03-2021 End: 03-31-2022 take 1 capsule by mouth three times daily Vitamin E, dl, acetate, (VITAMIN E) 400 unit capsule Take 1 capsule by mouth three times daily. 90 capsule 2 10/03/2021 03/31/2022 Discontinued Start: 10-03-2021 take 1 capsule by mo uth three times daily Vitamin E, dl, acetate, (VITAMIN E) 400 unit capsule Take 1 capsule by mouth three times daily. 90 capsule 2 10/03/2021 Active Start: 03-16-2021 End: 02-08-2022 take 400 [IU] by mouth twice daily Vitamin E (Dl, Acetate) Discontinued 400 UNIT PO TWICE A DAY July 21, 2021 12:00am February 08, 2022 2:13pm Comment on above: Take 1 capsule by mo uth twice daily. Take 1 capsule by mo uth three times daily. Problems Active Problems Problem Classification Problem Date Documented Date Episodic/Chronic Acquired foot deformities (20 sources) Hammer toe; Translations: [Other hammer toe(s) (acquired), right foot] Onset: 05-04-2023 05-04-2023 Chronic Acute myocardial infarction (8 sources) Myocardial infarction; Translations: [ST elevation (STEMI) myocardial infarction involving other coronary artery of anterior wall] Chronic Cancer of brain and nervous system (20 sources) Glioblastoma multiforme ; Translations: [Malignant neoplasm of brain, unspecified] Onset: 09-13-2023 Chronic Cardiac dysrhythmias (20 sources) Irregular heart beat; Translations: [Cardiac arrhythmia, unspecified] Onset: 04-17-2023 03-29-2023 Chronic Chronic kidney disease (20 sources) Chronic kidney disease stage 1; Translations: [Chronic kidney disease, stage 1] Onset: 01-27-2021 01-27-2021 Chronic Coronary atherosclerosis and other heart disease (20 sources) Atherosclerotic heart disease of [place] coronary artery without angina pectoris; Translations: [Myocardial ischemia] Onset: 01-15-2013 11-23-2015 Chronic Diabetes mellitus without complication (1 source) Hyperglycemia; Translations: [Hyperglycemia, unspecified] Episodic Disorders of lipid metabolism (20 sources) Hyperlipidemia; Translations: [Hyperlipidemia, unspecified] Onset: 01-20-2013 01-20-2013 Chronic Epilepsy; convulsions (20 sources) Recurrent seizure; Translations: [Epilepsy, unspecified, not intractable, without status epilepticus] Onset: 11-13-2020 Resolved: 01-12-2021 Chronic Heart valve disorders (20 sources) Nonrheumatic mitral (valve) prolapse; Translations: [Mitral valve prolapse] Onset: 01-20-2013 11-23-2015 Chronic Maintenance chemotherapy; radiotherapy (1 source) Patient encounter status; Translations: [Encounter for antineoplastic immunotherapy] Chronic Neoplasms of unspecified nature or uncertain behavior (4 sources) Neoplasm of brain; Translations: [Neoplasm of unspecified behavior of brain] Chronic Neoplasms of unspecified nature or uncertain behavior (6 sources) Intracranial meningioma; Translations: [Neoplasm of uncertain behavior of cerebral meninges] Episodic Nephritis; nephrosis; renal sclerosis (20 sources) Atrophy of left kidney; Translations: [Atrophy of kidney (terminal)] Onset: 01-27-2021 01-27-2021 Chronic Other and unspecified benign neoplasm (20 sources) Neoplasm of meninges; Translations: [Benign neoplasm of meninges, unspecified] Onset: 08-02-2020 01-12-2021 Chronic Other and unspecified benign neoplasm (3 sources) Benign neoplasm of meninges; Translations: [Benign neoplasm of meninges, unspecified] Chronic Other and unspecified benign neoplasm (5 sources) Benign neoplasm of meninges, unspecified; Translations: [Meningioma (HCC)] Onset: 01-12-2021 Chronic Other and unspecified benign neoplasm (4 sources) History of polyp of colon; Translations: [Personal history of colonic polyps] 12-26-2022 Episodic Other connective tissue disease (3 sources) Muscle spasticity present; Translations: [Other muscle spasm] Episodic Other connective tissue disease (5 sources) Neuralgia; Translations: [Neuralgia and neuritis, unspecified] Episodic Other connective tissue disease (1 source) Peripheral neuropathic pain; Translations: [Neuralgia and neuritis, unspecified] 12-06-2023 Episodic Other connective tissue disease (1 source) Pain in right lower limb; Translations: [Pain in right leg] 10-21-2024 Episodic Other diseases of veins and lymphatics (6 sources) Lymphedema; Translations: [Lymphedema, not elsewhere classified] 09-27-2020 Chronic Other ear and sense organ disorders (20 sources) Sensorineural hearing loss, bilateral; Translations: [Sensorineural hearing loss, bilateral] Onset: 02-20-2021 02-20-2021 Chronic Other ear and sense organ disorders (1 source) Bilateral tinnitus; Translations: [Tinnitus, bilateral] Episodic Other liver diseases (1 source) Elevated liver enzymes level; Translations: [Abnormal levels of other serum enzymes] 05-31-2024 Episodic Other male genital disorders (1 source) Secondary erectile dysfunction; Translations: [Male erectile dysfunction, unspecified] Chronic Other nervous system disorders (20 sources) Cerebral edema; Translations: [Cerebral edema] Onset: 11-10-2020 11-10-2020 Chronic Other nervous system disorders (1 source) Cerebral edema; Translations: [Brain edema (HCC)] Onset: 11-10-2020 Chronic Other nervous system disorders (1 source) Paresthesia; Translations: [Paresthesia of skin] Episodic Other nervous system disorders (4 sources) Abnormal gait; Translations: [Unspecified abnormalities of gait and mobility] Episodic Other nervous system disorders (2 sources) Muscle fasciculation; Translations: [Fasciculation] 11-27-2024 Episodic Other nervous system disorders (1 source) Fasciculation; Translations: [Fasciculation] Onset: 12-31-2024 Episodic Other non-traumatic joint disorders (2 sources) Chronic ankle pain; Translations: [Pain in right ankle and joints of right foot] Episodic Other skin disorders (2 sources) Mass of neck; Translations: [Localized swelling, mass and lump, neck] Episodic Residual codes; unclassified (20 sources) Obstructive sleep apnea syndrome; Translations: [Obstructive sleep apnea (adult) (pediatric)] Onset: 01-31-2021 01-31-2021 Chronic Residual codes; unclassified (1 source) Obstructive sleep apnea (adult) (pediatric); Translations: [MELL on CPAP] Onset: 11-20-2022 Chronic Residual codes; unclassified (2 sources) Family history of cancer of colon; Translations: [Family history of malignant neoplasm of digestive organs] 12-26-2022 Episodic Residual codes; unclassified (1 source) H/O: radiation exposure; Translations: [Personal history of irradiation] 10-21-2024 Episodic Residual codes; unclassified (1 source) H/O: brain disorder; Translations: [Personal history of other specified conditions] 11-27-2024 Episodic Residual codes; unclassified (1 source) Family history of amyotrophic lateral sclerosis; Translations: [Family history of epilepsy and other diseases of the nervous system] 11-27-2024 Episodic Screening and history of mental health and substance abuse codes (1 source) Encounter for screening examination for other mental health and behavioral disorders; Translations: [Encounter for screening examination for other mental health and behavioral disorders] Onset: 10-22-2024 Episodic Secondary malignancies (5 sources) Secondary malignant neoplasm of brain; Translations: [Secondary malignant neoplasm of brain] 02-23-2023 Chronic Skin and subcutaneous tissue infections (1 source) Infection of skin; Translations: [Local infection of the skin and subcutaneous tissue, unspecified] 03-31-2024 Episodic Spondylosis; intervertebral disc disorders; other back problems (1 source) Degeneration of lumbar intervertebral disc; Translations: [Other intervertebral disc degeneration, lumbar region] 12-06-2023 Chronic Spondylosis; intervertebral disc disorders; other back problems (3 sources) Cervicocranial syndrome; Translations: [Cervicocranial syndrome] Episodic Unclassified (2 sources) Long-term drug therapy; Translations: [Long-term (current) use of other medications] Onset: 04-04-2013 04-04-2013 Unclassified (2 sources) New Patient; Translations: [New Patient] Onset: 02-01-2023 Unclassified (1 source) History of colonic polyps; Translations: [History of colonic polyps] Onset: 06-09-2024 Unclassified (1 source) Aortic stenosis, moderate 12-01-2024 Viral infection (1 source) Disease caused by 2019-nCoV; Translations: [COVID-19] Episodic Past or Other Problems Problem Classification Problem Date Documented Da te Episodic/Chronic Allergic reactions (20 sources) Necrosis due to ionizing radiation; Translations: [Other specified disorders of the skin and subcutaneous tissue related to radiation] Onset: 01-23-2022 Episodic Coronary atherosclerosis and other heart disease (20 sources) History of myocardial infarction; Translations: [Stented coronary artery] Onset: 01-15-2013 01-20-2013 Episodic E Codes: Adverse effects of medical care (20 sources) Complication of procedure; Translations: [Radiological procedure and radiotherapy as the cause of abnormal reaction of the patient, or of later complication, without mention of misadventure at the time of the procedure] Onset: 01-23-2022 05-30-2022 Episodic E Codes: Natural/environment (3 sources) Tick bite; Translations: [Bitten or stung by nonvenomous insect and other nonvenomous arthropods, initial encounter] Onset: 04-25-2024 03-31-2024 Episodic Epilepsy; convulsions (20 sources) Seizure; Translations: [Unspecified convulsions] Onset: 05-18-2021 Resolved: 10-22-2024 05-18-2021 Episodic Fluid and electrolyte disorders (20 sources) Hypokalemia; Translations: [Hypokalemia] Onset: 05-30-2022 05-30-2022 Episodic Hemorrhoids (20 sources) Hemorrhoids; Translations: [External hemorrhoids] Onset: 11-23-2016 01-26-2017 Episodic Malaise and fatigue (20 sources) Asthenia; Translations: [Weakness] Onset: 01-23-2022 Resolved: 10-22-2024 05-30-2022 Episodic Mood disorders (1 source) Mood disorders Onset: 03-22-2023 03-22-2023 Nonspecific chest pain (3 sources) Chest pain, unspecified; Translations: [Chest pain, unspecified] Onset: 01-20-2013 Resolved: 11-23-2015 02-14-2013 Episodic Other and unspecified benign neoplasm (20 sources) Intracranial meningioma; Translations: [Benign neoplasm of cerebral meninges] Onset: 05-30-2022 Resolved: 10-22-2024 05-30-2022 Chronic Other and unspecified benign neoplasm (20 sources) Personal history of colonic polyps; Translations: [History of polyp of colon] Onset: 11-23-2016 01-26-2017 Episodic Other and unspecified benign neoplasm (20 sources) Benign neoplasm of colon; Translations: [Benign neoplasm of colon, unspecified] Onset: 10-29-2009 10-29-2009 Episodic Other and unspecified benign neoplasm (20 sources) Neuroma; Translations: [Benign neoplasm of peripheral nerves and autonomic nervous system, unspecified] Onset: 05-04-2023 01-02-2023 Episodic Other and unspecified benign neoplasm (20 sources) Lipoma (clinical); Translations: [Benign lipomatous neoplasm, unspecified] Onset: 04-25-2023 01-04-2023 Episodic Other and unspecified benign neoplasm (3 sources) Benign lipomatous neoplasm, unspecified; Translations: [Lipoma, unspecified site] Onset: 04-25-2023 01-04-2023 Episodic Other connective tissue disease (20 sources) Pain in right foot; Translations: [Pain in right foot] Onset: 05-04-2023 Episodic Other connective tissue disease (20 sources) Bursitis of right foot; Translations: [Other enthesopathy of right foot and ankle] Onset: 05-04-2023 01-30-2023 Episodic Other ear and sense organ disorders (20 sources) Tinnitus of right ear; Translations: [Tinnitus, right ear] Onset: 02-20-2021 02-20-2021 Episodic Other liver diseases (1 source) Abnormal levels of other serum enzymes; Translations: [Elevated liver enzymes] Onset: 09-01-2024 Episodic Other nervous system disorders (20 sources) Numbness; Translations: [Anesthesia of skin] Onset: 05-04-2023 Episodic Other screening for suspected conditions (not mental disorders or infectious disease) (20 sources) Patient encounter status; Translations: [Encounter for screening for malignant neoplasm of colon] Onset: 10-29-2009 10-29-2009 Episodic Other upper respiratory infections (3 sources) Acute maxillary sinusitis; Translations: [Acute maxillary sinusitis, unspecified] Onset: 04-25-2024 04-18-2024 Episodic Residual codes; unclassified (20 sources) Localized edema; Translations: [Localized edema] Onset: 10-22-2020 10-22-2020 Episodic Residual codes; unclassified (20 sources) General reaction to light - finding; Translations: [Other general symptoms and signs] Onset: 08-21-2020 05-30-2022 Episodic Unclassified (3 sources) Body mass index (BMI) 27.0-27.9, adult; Translations: [Family history of ischemic heart disease] Onset: 01-20-2013 Resolved: 11-23-2015 01-21-2013 Episodic Unclassified (1 source) Percutaneous transluminal coronary angioplasty ; Translations: [Coronary angioplasty status] Onset: 01-20-2013 01-20-2013 Results Test Name Value Interpretation Reference Range Facility Re-Evaluation - PT (1)on Re-Evaluation - PT (1) [facility] [address] [place] [address] [address] [place] [address] / REEVALUATION / MEDICARE RECERTIFICATION PHYSICAL THERAPY MR#: [id number] Acct: [id number] Name: WATSON RODRIGUEZ Rep #: [id number] : 1960 64 From: Rene Hurtado DPT, OCS, CSCS Referring Dr.: Dr. Breanne Whittington MD Status:REG RCR Insurance: MEDICARE PART A B ANTHEM Re-Evaluation Intro: Dr. Breanne Whittington MD, It has been my pleasure to treat WATSON RODRIGUEZ over the last 8 visits for Meningioma. Please see the progress note below for an update on the physical therapy plan of care! Subjective Subjective: Weak leg and good spirit. Overall 70% less pain, just a dukkl ache in R leg, No more 8/10 days, peaks at 6/10. Always a 1/10. Strengthening 2-3x/week for last 3 weeks. TM has really helped 3.8 mph. Finished with chiropractor. To stephanie in April. Objective Objective/Function: walks well today, R calf smalleer by 1.5 cm but walking well adn feeling better. i with gym exercises now for 3 weeks New maintenance goal with good rpognosis. Plan Plan Plan: hold chart until 04/29 neuro visit then d/c to gym ex if no concerns from patient. Balance/Gait/Functional tests Balance/Special Test Scores Lower Extremity Functional Score: 61 Goals Goals Goal 1:: I appropriate core adn LE strength via HEP to limit future problems. Goal Time Frame: 4-6 Weeks Goal Progress: Goal Met Goal 2:: Pt notice 50% improvement in R foot symptoms tightness and discomfort/cramping Goal Time Frame: 4-6 Weeks Goal Progress: 70% Goal 3:: maintain 70% ijmprvement in leg discomfort I in gym for next 6 weeks Goal Time Frame: 4-6 Weeks Anticipated Interventions Anticipated Interventions Patient/Client Instruction: Educate patient on: Condition and Plan of Care For the Purpose of:: To decrease pain, To increase ROM, To improve nutrient delivery to tissue, To improve muscle performance and motor function and To increase tolerance to activity/condition/position Therapeutic Exercise to Include: Strength training, Postural training, Flexibilty training, Passive ROM, Active ROM and Dynamic Lumbar Stabilization For the Purpose of:: To decrease pain, To increase ROM, To improve nutrient delivery to tissue, To improve muscle performance and motor function and To increase tolerance to activity/condition/position Manual Therapy Techniques to Include: Soft tissue mobilization For the Purpose of:: To decrease pain, To increase ROM and To improve nutrient delivery to tissue Re-Evaluation Ending Re-evaluation ending: Please do not hesitate to contact me at [phone] by phone or if you have questions or concerns regarding this new plan of care! Sincerely, Rene Hurtado, DPT, OCS, CSCS 03/11/25 1025 CC: Dr. Breanne Whittington MD EBG Signed For Medicare only, by signing this I certify the plan of care. _ Physicians Signature Date Normal [facility] Inital Evaluation (1) - PTon 01-23-2025 Inital Evaluation (1) - PT [facility] [address] [place] [address] / REHABILITATION SERVICES INITIAL EVALUATION MR#: [id number] Acct: [id number] Name: WATSON RODRIGUEZ Rep #: [id number] : 1960 64 From: Rene Hurtado DPT, OCS, CSCS Referring Dr.: Dr. Breanne Whittington MD Status: REG RCR Insurance: MEDICARE PART A B ANTHEM Patient's Visit Information Visit Information Visit Information: WATSON RODRIGUEZ is a 64 year old M referred to Physical Therapy by Dr. Breanne Whittington MD with a diagnosis of Meningioma. Date of Evaluation: 01/23/25 Physical Therapist: Rene Hurtado DPT, OCS, CSCS Visit Plan Frequency: 2x /Week Duration: 4-6 Weeks Plan: 2x/week for 3-6 weeks IE HEP HS, quad and gastroc stretch with pics and pelvic tilt for pelvic motion. daily. treat with instruct and progress mat baseed core strength and band R LE strength HS and quad and gastroc and ankle, with pics progressing to HEP.Can progress to stand LE strength if tolerates.STM rollout to R ITB quad appropriate also. Consider pelvic prone traction in future. Subjective Subjective: Has meningioma and does strengthening ex at home. Was doing great earlier this year. Has radiation in August 2020 and recovered on dexamethozone. Retired 1.5 yrs ago and sleeps better. Problem is chronic R foot pain burning and tingling dullness. Had it since the radiation up and down. Some days 9/10 and hard to walk. Neuro at [facility]. H/o foot injections, diagnostics. Did not help. Nothing helped and was anatomically good so has just managed it with meds bc he did not want the nerves pulled out which was the next step. Is on Kepra and chlonozepam as rescue med for seizures. Typically good in the morning and sleeps well. Within 20 minutes of getting up can feel pain and worse with exertion. Has custom orthotics which helped. Bigger shoe size has helped. Does calf stretches daily and HS stretches. Does upper body work with band. Planks. Went to musculo neurologist specialist who thought calf and thigh muscle are smaller. Feels hard to pull back underneath him. Likely brain related. H/o shockwave therapy and some decompression last fall and that was his best time. Gets 66431 steps per day if he can and often better after walking. Standing on concrete is the worst without moving. No leg strengthening right now. 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 10 grandkids. Does everything. Pain R foot.: Pain Intensity (Out of 10): 2 Pain Intensity Range: 0 and 9 Comment: forefoot Objective Objective: Walks avoiding slightly R push off but I and otherwise normal. Trasnfer chair normal without UE. Bed transfer normal and I. Lumbar AROM mod limited in extension and repeated ext makes his R leg cramp up in the toes, stops immeediately. flexion adn SB are OK, pelvic motion is poor but good technique, just limited anteriorly. AROM B LE WFL, more tight R HS and quad at -30 90/90 test R vs. L, gastroc B fair at 2 DF B. hip strength 4 r and 4+ L in felxion and instabiliity in core as he tests, abd and ext 3+ B. knee strength quad 4- R and 4 L, HS 4- R and 4 L. ankles 4 B ankles in all directions. R toes 234 curl up slightly vs L but able to move them. reflexes 3/3 patella and achilles R and 2/3 L. core strength 4-/5 abs and extension is 3+. Sensation LE WNL to gross light touch B. - slump and - SLR. Good balance and gait. Balance/Special Test Scores Lower Extremity Functional Score: 61 Goals Goal 1:: I appropriate core adn LE strength via HEP to limit future problems. Goal Time Frame: 4-6 Weeks Goal 2:: Pt notice 50% improvement in R foot symptoms tightness and discomfort/cramping Goal Time Frame: 4-6 Weeks Rehabilitation Potential Physical Therapy Diagnosis: R leg tightness and weakness and back stiffness limiting comfortable funciton. Rehabilitation Potential: Good Anticipated Interventions Patient/Client Instruction: Educate patient on: Condition and Plan of Care For the Purpose of:: To decrease pain, To increase ROM, To improve nutrient delivery to tissue, To improve muscle performance and motor function and To increase tolerance to activity/condition/position Therapeutic Exercise to Include: Strength training, Postural training, Flexibilty training, Passive ROM, Active ROM and Dynamic Lumbar Stabilization For the Purpose of:: To decrease pain, To increase ROM, To improve nutrient delivery to tissue, To improve muscle performance and motor function and To increase tolerance to activity/condition/position Manual Therapy Techniques to Include: Soft tissue mobilization For the Purpose of:: To decrease pain, To increase ROM and To improve nutrient delivery to tissue Text: Thank you for the opportunity to evaluate your patient. For Medicare and Medicare HMO plans, (more content not included)... Normal [facility] Calcium.ionized [Moles/Vol]o n 01-02-2025 Calcium.ionized (Bld) [Mass/Vol] 1.23 mmol/L Normal 1.08-1.[address] [facility] Comment on above: Order Comment: Speci men Type: BLOOD SPECIMENOrdering Facility: [facility] Address: [address] [place] [address] Performed By: #### 1 995-0 ####[facility] LABCLIA [id number] [place] [address] [place] Calcium.ionized adjusted to pH 7.4 (Bld) [Moles/Vol] 1.19 mmol/L Normal 1.08-1.[address] [facility] Comment on above: Order Comment: Speci men Type: BLOOD SPECIMENOrdering Facility: [facility] Address: [address] [place] [address] Performed By: #### 1 995-0 ####[facility] LABCLIA [id number] [place] [address] [place] [facility] Parathyrin.intact [Mass/Vol] 50 pg/mL Normal 15-[address] [facility] Comment on above: Order Comment: Speci men Type: BLOOD SPECIMEN [facility]ing Facility: [facility] Address: [address] [place] [address] Performed By: #### 3 1204-1, 5195-3, 20554-3 #### [facility] CLIA [id number] [address] [facility] [address] OF [facility] CNOVon 12-31-2024 CNOV Office Visit (NENMMN ) WATSON RODRIGUEZ ([id number]) 1960 M DNAnselmo Date Time Provider Department 12/31/24 2:30 PM LAKISHA JUNIOR NENMMN During your visit today, we recorded the following information about you: Pulse Blood pressure Weight Height 63/minute 110/68 83.9 kg 1.803 m Lakisha Junior MD 01/01/2025 10:06 AM Signed Last Office Visit: 09/26/2023 (virtual) Current Neuromuscular Diagnosis: none (meningioma s/p gamma knife; last visit reported forefoot burning pain which was deep and not associated with sensory loss) Plan at last office visit: Reasonable to try alpha lipoic acid 400 mg twice daily for symptom management. No further testing. Recording using [employer] software for draft documentation of the visit was discussed with the patient/authorized help desk representative; all questions welcomed and answered. Patient/authorized help desk representative agreed to proceed S: Watson Rodriguez is a 64-year-old male with a history of meningioma, presenting for evaluation of fasciculations. He is accompanied by his , who provides additional history. Watson reports fasciculations in both calves, more pronounced in the right leg, which have increased in frequency over the past few months. Initially observed during an EEG at [facility], the fasciculations were infrequent but have since become more frequent, occurring 20-30 times per minute, especially in the mornings. He notes that the fasciculations are more visible when his muscles are relaxed and do not vary based on stress or other factors. He does not endorse fasciculations in other parts of his body, including the face, tongue, arms, torso, or thighs. He does not physically feel the fasciculations unless he is watching them. He has a history of a meningioma s/p gamma knife and is currently taking Keppra. He has also been taking a multivitamin and turmeric but discontinued them for 30 days without noticing any change in the fasciculations. He does not endorse muscle cramps in the calves but does experience cramps in the arch of his right foot, which he associates with focal seizures. These cramps occur once a week and are relieved by massage. He also reports weakness in his right leg, which he attributes to his brain tumor and spina bifida occulta at L5. He experiences burning and tingling sensations in his right foot, which are triggered by dehydration, hot weather, fatigue, and emotional distress. He manages the pain with dexamethasone, ibuprofen, and clonazepam, which provide relief but do not affect the fasciculations. 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 During these episodes, he loses control of his leg and cannot bear weight on it. The episodes last for a few hours and are preceded by an aura. He also reports sound sensitivity, which he attributes to peritumoral edema. He manages the sound sensitivity with dexamethasone. He is physically active, walking 10,000 to 15,000 steps per day, and does not have difficulty going up stairs or getting out of chairs. He does not endorse sensory loss in his legs. He has a family history of ALS, with his father passing away from the disease. O: BP 110/68 (BP Site: Left Arm, BP Position: Sitting, BP Cuff Size: Regular Adult) Pulse 63 Ht 180.3 cm (5' 11) Wt 83.9 kg (185 lb) SpO2 96% BMI 25.80 kg/m? MS: alert and responsive, language intact 5/5 throughout all extremity muscle groups, nl tone, mildly reduced R calf and medial posterior thigh bulk, able to arise from a chair without using hands Strength: Right Left Hip Flexors 5 5 Hip Extensors 5 5 Hip Abductors 5 5 Hip Adductors 5 5 Knee Extensors 5 5 Knee Flexors 4+ 5 Ankle Dorsiflexors 5 5 Ankle Plantarflexors 5- 5 Ankle Invertors 5 5 Ankle Evertors 5- 5 Toe Flexors 4+ 5- Toe Extensors 5 5 Sensory: intact LT in all 4 extremities Reflexes: 3+ bilateral biceps, triceps, brachioradialis, knees, and ankles; plantar responses upgoing bilaterally; bilateral crossed adductors; no Velarde's or Troemner's bilaterally, clonus R>L ankles Cerebellar: FTN, HTS, and JAI intact bilaterally Gait: intact including stress gait, Romberg negative A/P: Watsonmaxwell Rodriguez is a 64 year-old man who had sudden onset RLE function changes 05/02/2020. CT/MRI brain showed left parasaggital meningioma, now s/p gamma knife. He has ongoing focal seizure management with Keppra and prn clonazepam. He reports ongoing forefoot burning pain which is deep and not associated with sensory loss. Patient is now reporting fasciculations in the R>L calf muscles. These are observed on examination and on videos provided by the patient. Discussed with patient that I doubt a peripheral nerve (radiculopathy or peripheral nerve injury) based on absence of sensory loss and unchange (more content not included)... Normal [facility] CNOVon 12-01-2024 CNOV Office Visit (CARDWS ) WATSON RODRIGUEZ ([id number]) 1960 M [facility] Date Time Provider Department 12/01/24 1:00 PM DAVION SAMAYOA During your visit today, we recorded the following information about you: Pulse Respiration Blood pressure Weight 65/minute 12/minute 116/56 85.3 kg Height 1.803 m Davion Samayoa MD 12/01/2024 1:32 PM Signed Davion Samayoa MD Interventional Cardiology [address] [address] [phone] Chief Complaint Patient presents with: New Patient: Transferring from [facility], patient has questions HISTORY OF PRESENT ILLNESS: Mr. Rodriguez is a 64-year-old male with a history of anterior AK and stent placement in the LAD in 2012, presenting for follow-up. The patient reports no current chest pain or dyspnea. He maintains a healthy diet and regular exercise regimen. A recent echocardiogram on May 19, 2024, showed normal heart function with an LVEF of 60% and mild aortic stenosis. He inquires about the implications of aortic stenosis and future management. He has a history of meningioma diagnosed in 2020, managed with Gamma Knife radiation due to its location in the motor control area. He experiences chronic right foot pain and is under the care of Dr. Sutton and Dr. Devlin at [facility]. He denies any history of smoking or alcohol use. He has a family history of CAD; his brother had an AK at age 49 and was recently diagnosed with AFib. He is currently taking aspirin, rosuvastatin, and Keppra. Cardiac Risk Factors age (male over 45, female over 55), hyperlipidemia, family history of CAD PAST MEDICAL HISTORY Diagnosis Date Acute myocardial infarction of lateral wall (HCC) 2012 s/p LAD stent Aortic valve stenosis Atrophy of left kidney Benign neoplasm of colon Benign neoplasm of meninges (HCC) 08/02/2020 Bursitis CAD (coronary artery disease) Chronic kidney disease External hemorrhoids Hammertoe of right foot Hyperlipidemia Hypokalemia Irregular heart rhythm Lipoma Meningioma (HCC) Mitral valve prolapse Neuroma MELL on CPAP Seizure (HCC) focal motor PAST SURGICAL HISTORY Procedure Laterality Date COLONOSCOPY FLX DX W/COLLJ SPEC WHEN PFRMD 10/29/2009 Colonoscopy COLONOSCOPY FLX DX W/COLLJ SPEC WHEN PFRMD 2016 HEMORRHOID;BAND LIGAT, SNGL/MUL 12/2016 MRI 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 PAST SURGICAL HISTORY OF Left 04/2017 left knee arthroscopy - meniscus PAST SURGICAL HISTORY OF 01/2013 PTCA x 1 - LAD PT ED HEART AND VASCULAR 2012 coronary angioplasty graft and stent FAMILY HISTORY Problem Relation Age of Onset Colon Cancer Mother ascending large intestine removed 2008 at 80 years old Heart Attack Mother Prostate Cancer Brother Heart Attack Brother Colon Cancer Maternal Grandmother portion lower colon removed 60 years old, colostomy Heart Attack Paternal Grandfather 70's Social History Tobacco Use Smoking status: Never Smokeless tobacco: Never Vaping Use Vaping status: Never Used Substance Use Topics Alcohol use: No Drug use: No ALLERGIES Allergen Reactions Atorvastatin Myalgia, Other: See Comments Medications: Current Outpatient Medications Medication Sig Dispense Refill levETIRAcetam (KEPPRA) 250 mg tablet Take 1 tablet by mouth two times a day. Please add this dose to your current dose of levetiracetam. The total daily dose, will be 1250 mg twice a day. 60 tablet 4 CPAP/BIPAP/OTHER APAP 5-20 cmH2O DME [facility] 1 each 0 dexAMETHasone (DECADRON) 2 mg tablet 2 mg the day prior to the flight, the day of the flight and the day after the flight. 15 tablet 2 clonazePAM orally disintegrating (KLONOPIN WAFER) 1 mg disintegrating tablet Dissolve 1 tablet under the tongue three times a day as needed for up to 30 days. 30 tablet 2 levETIRAcetam (KEPPRA) 500 mg tablet Take 2 tablets by mouth two times a day. 360 tablet 11 sildenafil (VIAGRA) 100 mg tablet Take 1 pill 1 hour prior to sexual activity on empty stomach 30 tablet 5 CPAP Initiate Auto PAP @ 5-20 cm of water with humidification. Mask (per patient preference) optional chin strap (if indicated) , filters, tubing, humidifier and lifetime supplies. 1 Device 0 rosuvastatin (CRESTOR) 40 mg tablet Take 40 mg by mouth. Multivitamin capsule Take 1 capsule by mouth once daily. aspirin(ADULT LOW DOSE ASPIRIN 81 MG TAB, DELAYED RELEASE) Take one(1) tablet daily. 0 No current facility-administered medications for this visit. Review of Systems Constitutional: Negative for chills, diaphoresis, fever, malaise/fatigue and weight loss. HENT: Negative for congestion, ear discharge, ear pain, hearing loss, nosebleeds, sinus pain, sore throat and tinnitus. Eyes: Negative for blurred vision, double vision, photophobia, pain, discharge and redness. Respiratory: Ne (more content not included)... Normal [facility] CBC W Auto Differential pane l (Bld)on 10-22-2024 Basophils (Bld) [#[facility]Vol] [facility] Basophils/100 WBC (Bld) 0.4 % [facility] Differential cell count method Nom (Bld) Auto [facility] Eosinophils (Bld) [#/Vol] 0.07 10*3/uL [facility] Eosinophils/100 WBC (Bld) 1.4 % [facility] Erythrocyte distribution width (RBC) [Ratio] 11.9 % 11.5 - 15.0 % [facility] Hematocrit (Bld) [Volume fraction] 42.1 % 39.0 - 51.0 % [facility] Hemoglobin (Bld) [Mass/Vol] 14.1 g/dL 13.0 - 17.0 g/dL [facility] Immature granulocytes (Bld) [#/Vol] [facility] Immature granulocytes/100 WBC (Bld) 0.2 % [facility] Lymphocytes (Bld) [#/Vol] 1.11 10*3/uL [facility] Lymphocytes/100 WBC (Bld) 21.8 % [facility] MCH (RBC) [Entitic mass] 31.1 pg 26.0 - 34.[address] [facility] MCHC (RBC) [Mass/Vol] 33.5 g/dL 30.5 - 36.0 g/dL [facility] MCV (RBC) [Entitic vol] 92.7 fL 80.0 - 100.[address] [facility] Monocytes (Bld) [#/Vol] 0.55 10*3/uL [facility] Monocytes/100 WBC (Bld) 10.8 % [facility] Neutrophils (Bld) [#/Vol] 3.34 10*3/uL [facility] Neutrophils/100 WBC (Bld) 65.4 % [facility] Nucleated RBC (Bld) [#/Vol] [facility] Nucleated RBC/100 WBC (Bld) [Ratio] 0 % /[address] [facility] Platelet mean volume (Bld) [Entitic vol] 9.1 fL 9.0 - 12.[address] [facility] Platelets (Bld) [#/Vol] 193 10*3/uL [facility] RBC (Bld) [#/Vol] 4.54 10*6/uL 4.20 - 6.0 0 m/uL [facility] WBC (Bld) [#/Vol] 5.1 10*3/uL [facility] Basophils (Bld) [#/Vol] 10*3/uL Normal <0.[address] [facility] Comment on above: Order Comment: Speci men Type: BLOOD SPECIMEN [facility] Address: [address] [place] [address] Performed By: #### 3 1204-1, 5194-3, #### [facility] CLIA [id number] [address] [place] [address] [place] Basophils/100 WBC (Bld) 0.4 % Normal [facility] Comment on above: Order Comment: Speci men Type: BLOOD SPECIMEN [facility] Address: [address] [place] [address] Performed By: #### 3 1204-1, 3, #### [facility] CLIA [id number] [address] [place] [address] [place] Differential cell count method Nom (Bld) Auto Normal [facility] Comment on above: Order Comment: Speci men Type: BLOOD SPECIMEN [facility] Address: [address] [place] [address] Performed By: #### 3 1204-1, 5194-07, #### [facility] CLIA [id number] [address] [place] [address] [place] Eosinophils (Bld) [#/Vol] 0.07 10*3/uL Normal <0.[address] [facility] Comment on above: Order Comment: Speci men Type: BLOOD SPECIMEN [facility] Address: [address] [place] [address] Performed By: #### 3 1204-1, 3, #### [facility] CLIA [id number] [address] [place] [address] [place] Eosinophils/100 WBC (Bld) 1.4 % Normal [facility] Comment on above: Order Comment: Speci men Type: BLOOD SPECIMEN [facility] Address: [address] [place] [address] Performed By: #### 3 1204-1, 3, #### [facility] CLIA [id number] [address] [place] [address] [place] Erythrocyte distribution width (RBC) [Ratio] 11.9 % Normal 11.5-15.[address] [facility] Comment on above: Order Comment: Speci men Type: BLOOD SPECIMEN [facility] Address: [address] [place] [address] Performed By: #### 3 1204-1, 5195-3, 66001-5 #### [facility] CLIA [id number] [address] [place] [address] [place] Hematocrit (Bld) [Volume fraction] 42.1 % Normal 39.0-51.[address] [facility] Comment on above: Order Comment: Speci men Type: BLOOD SPECIMEN [facility] Address: [address] [place] [address] Performed By: #### 3 1204-1, 53, 14172-9 #### [facility] CLIA [id number] [address] [place] [address] [place] Hemoglobin (Bld) [Mass/Vol] 14.1 g/dL Normal 13.0-17.[address] [facility] Comment on above: Order Comment: Speci men Type: BLOOD SPECIMEN Ordering Facility: [facility] Address: [address] [place] [address] Performed By: #### 3 1204-1, 51953, 89464-7 #### [facility] CLIA [id number] [address] [place] [address] [place] Immature granulocytes (Bld) [#/Vol] 10*3/uL Normal <0.[address] [facility] Comment on above: Order Comment: Speci men Type: BLOOD SPECIMEN Ordering Facility: [facility] Address: [address] [place] [address] Performed By: #### 3 1204-1, 5195-3, 71606-9 #### [facility] CLIA [id number] [address] [place] [address] [place] Immature granulocytes/100 WBC (Bld) 0.2 % Normal [facility] Comment on above: Order Comment: Speci men Type: BLOOD SPECIMEN Ordering Facility: [facility] Address: [address] [place] [address] Performed By: #### 3 1204-1, 5195-3, 15485-8 #### [facility] CLIA [id number] [address] [place] [address] [place] Lymphocytes (Bld) [#/Vol] 1.11 10*3/uL Normal 1.00-4.[address] [facility] Comment on above: Order Comment: Speci men Type: BLOOD SPECIMEN Ordering Facility: [facility] Address: [address] [place] [address] Performed By: #### 3 1204-1, 5194-3, 66985-1 #### [facility] CLIA [id number] [address] [place] [address] [place] Lymphocytes/100 WBC (Bld) 21.8 % Normal [facility] Comment on above: Order Comment: Speci men Type: BLOOD SPECIMEN Ordering Facility: [facility] Address: [address] [place] [address] Performed By: #### 3 1204-1, 5-3, 92052-4 #### [facility] CLIA [id number] [address] [place] [address] [place] MCH (RBC) [Entitic mass] 31.1 pg Normal 26.0-34.[address] [facility] Comment on above: Order Comment: Speci men Type: BLOOD SPECIMEN Ordering Facility: [facility] Address: [address] [place] [address] Performed By: #### 3 1204-1, 5-3, 19843-2 #### [facility] CLIA [id number] [id number] [address] [place] MCHC (RBC) [Mass/Vol] 33.5 g/dL Normal 30.5-36.[address] [facility] Comment on above: Order Comment: Speci men Type: BLOOD SPECIMEN Ordering Facility: [facility] Address: [address] [place] [address] Performed By: #### 3 1204-1, 5194-3, #### [facility] CLIA [id number] [address] [place] [address] [place] MCV (RBC) [Entitic vol] 92.7 fL Normal 80.0-100.[address] [facility] Comment on above: Order Comment: Speci men Type: BLOOD SPECIMEN Ordering Facility: [facility] Address: [address] [place] [address] Performed By: #### 3 1204-1, 5194-3, #### [facility] CLIA [id number] [address] [place] [address] [place] Monocytes (Bld) [#/Vol] 0.55 10*3/uL Normal <0.[address] [facility] Comment on above: Order Comment: Speci men Type: BLOOD SPECIMEN Ordering Facility: [facility] Address: [address] [place] [address] Performed By: #### 3 1204-1, 5194-3, #### [facility] CLIA [id number] [address] [place] [address] [place] Monocytes/100 WBC (Bld) 10.8 % Normal [facility] Comment on above: Order Comment: Speci men Type: BLOOD SPECIMEN Ordering Facility: [facility] Address: [address] [place] [address] Performed By: #### 3 1204-1, 5194-3, #### [facility] CLIA [id number] [address] [place] [address] [place] Neutrophils (Bld) [#/Vol] 3.34 10*3/uL Normal 1.45-7.[address] [facility] Comment on above: Order Comment: Speci men Type: BLOOD SPECIMEN Ordering Facility: [facility] Address: [address] [place] [address] Performed By: #### 3 1204-1, 5-3, 69295-0 #### [facility] CLIA [id number] [address] [place] [address] [place] Neutrophils/100 WBC (Bld) 65.4 % Normal [facility] Comment on above: Order Comment: Speci men Type: BLOOD SPECIMEN Ordering Facility: [facility] Address: [address] [place] [address] Performed By: #### 3 1204-1, 3, 18823-8 #### [facility] CLIA [id number] [address] [place] [address] [place] Nucleated RBC (Bld) [#/Vol] 10*3/uL Normal <0.[address] [facility] Comment on above: Order Comment: Speci men Type: BLOOD SPECIMEN Ordering Facility: [facility] Address: [address] [place] [address] Performed By: #### 3 1204-1, 3, 03812-5 #### [facility] CLIA [id number] [address] [place] [address] [place] Nucleated RBC/100 WBC (Bld) [Ratio] 0.0 /100 WBC Normal [facility] Comment on above: Order Comment: Speci men Type: BLOOD SPECIMEN Ordering Facility: [facility] Address: [address] [place] [address] Performed By: #### 3 1204-1, 3, 93500-8 #### [facility] CLIA [id number] [address] [place] [address] [place] Platelet mean volume (Bld) [Entitic vol] 9.1 fL Normal 9.0-12.[address] [facility] Comment on above: Order Comment: Speci men Type: BLOOD SPECIMEN Ordering Facility: [facility] Address: [address] [place] [address] Performed By: #### 3 1204-1, 5-3, 65515-9 #### [facility] CLIA [id number] [address] [place] [address] [place] Platelets (Bld) [#/Vol] 193 10*3/uL Normal 150-[address] [facility] Comment on above: Order Comment: Speci men Type: BLOOD SPECIMEN Ordering Facility: [facility] Address: [address] [place] [address] Performed By: #### 3 1204-1, 5-3, 53281-6 #### [facility] CLIA [id number] [address] [place] [address] [place] RBC (Bld) [#/Vol] 4.54 10*6/uL Normal 4.20-6.00 [facility] Comment on above: Order Comment: Speci men Type: BLOOD SPECIMEN Ordering Facility: [facility] Address: [address] [place] [address] Performed By: #### 3 1204-1, 5-3, 88273-5 #### [facility] CLIA [id number] [address] [place] [address] [place] WBC (Bld) [#/Vol] 5.10 10*3/uL Normal 3.70-11.00 [facility] Comment on above: Order Comment: Speci men Type: BLOOD SPECIMEN Ordering Facility: [facility] Address: [address] [place] [address] Performed By: #### 3 1204-1, 5195-3, 10775-5 #### [facility] CLIA [id number] [address] [place] [address] [place] CNOVon 10-22-2024 CNOV Office Visit (FAMPWS ) WATSON RODRIGUEZ ([id number]) 1960 M [facility] Date Time Provider Department 10/22/24 2:40 PM [facility] During your visit today, we recorded the following information about you: Pulse Blood pressure Weight 60/minute 96/44 82.1 kg Breanne Whittington MD 10/22/2024 3:08 PM Signed - Try an zmtw-vlc-iayeccy Boswellia supplement daily for three months to help reduce the brain-tumor swelling; - Continue your current Keppra dose of 2,000 mg per day. - Have labs drawn today (no fasting required): complete blood count, electrolytes (including sodium and potassium), kidney function tests, and a Keppra level. - Drink plenty of fluids to stay well hydrated. - Monitor your blood pressure at home and record readings; let us know if they fall well above or below your usual range. - Continue annual echocardiograms to monitor the mild to moderate aortic stenosis. - Keep your cardiology appointment at [facility] in November for heart murmur evaluation. - Watch for any new lightheadedness, chest discomfort, or shortness of breath and contact the office if these occur. - Plan to return in about six months for your Medicare wellness exam. Breanne Whittington MD 10/22/2024 5:34 PM Signed Watson Riley Carmenza is a 64-year-old male with a history of brain tumor, presenting for evaluation of right leg weakness and numbness, and follow-up for aortic stenosis. HPI Right Leg Weakness and Numbness: - Three episodes of right leg weakness and numbness over the past three weeks. - First episode occurred three weeks ago while working in the basement; right leg became weak, unable to bear weight, resolved after one hour of rest and elevation. 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 Neuro onc is aware. - Third episode occurred last Sunday after working most of the day, possibly related to dehydration. - No associated neck pain. - Has been drinking a lot of water. - Recent increase in physical activity due to basement renovation. - Noted correlation between seizures and stress/dehydration post-Gamma Knife. - Currently taking Keppra 2000 mg daily; previously reduced to 1750 mg with temporary relief of foot pain but increased clonazepam use. - Clonazepam use decreased after returning to 2000 mg of Keppra. Brain Tumor: - Recent brain MRI in August showed persistent edema; Dr. Lundberg believes it is peritumoral edema, not radiation necrosis. - Sound sensitivity and tinnitus persist; uses earplugs in large crowds to prevent right foot pain. - Previous treatments for edema included Trentol, vitamin E, and Avastin; Avastin provided temporary relief but has cardiac side effects. - Dr. Devlin hesitant to retry Avastin due to history of [place]. - Dr. Aviles recommended trying Boswellia for three months. Aortic Stenosis: - History of heart murmur; recent echo on May 19 showed mild to moderate aortic stenosis. - Scheduled to see Cardiology at [facility] in November. - No current symptoms of tiredness, lightheadedness, or chest discomfort. - Using CPAP regularly with good results. - Blood pressure typically around 110/60 mmHg; occasionally checks at home. MEDICATIONS: Current Outpatient Medications Medication Sig levETIRAcetam (KEPPRA) 500 mg tablet Take 2 tablets by mouth two times a day. sildenafil (VIAGRA) 100 mg tablet Take 1 pill 1 hour prior to sexual activity on empty stomach CPAP Initiate Auto PAP @ 5-20 cm of water with humidification. Mask (per patient preference) optional chin strap (if indicated) , filters, tubing, humidifier and lifetime supplies. rosuvastatin (CRESTOR) 40 mg tablet Take 40 mg by mouth. Multivitamin capsule Take 1 capsule by mouth once daily. aspirin(ADULT LOW DOSE ASPIRIN 81 MG TAB, DELAYED RELEASE) Take one(1) tablet daily. CPAP/BIPAP/OTHER APAP 5-20 cmH2O DME [facility] dexAMETHasone (DECADRON) 2 mg tablet 2 mg the day prior to the flight, the day of the flight and the day after the flight. clonazePAM orally disintegrating (KLONOPIN WAFER) 1 mg disintegrating tablet Dissolve 1 tablet under the tongue three times a day as needed for up to 30 days. No current facility-administered medications for this visit. ALLERGIES: ALLERGIES Allergen Reactions Atorvastatin Myalgia, Other: See Comments PAST MEDICAL HISTORY Diagnosis Date Acute myocardial infarction of lateral wall (HCC) 2012 s/p LAD stent Aortic valve stenosis Atrophy of left kidney Benign neoplasm of colon Benign neoplasm of meninges (HCC) 08/02/2020 Bursitis CAD (coronary artery disease) Chronic kidney disease External hemorrhoids Hammertoe of right foot Hyperlipidemia Hypokalemia (more content not included)... Normal [facility] Comprehensive metabolic 2000 panelon 10-22-2024 Albumin [Mass/Vol] 4.4 g/dL Normal 3.9-4.9 [facility] Comment on above: Order Comment: Speci men Type: BLOOD SPECIMENOrdering Facility: [facility] Address: [address] [place] [address] Performed By: #### 2 4323-8 ####[facility] [id number] [place] [address] [place] ALP [Catalytic activity/Vol] 68 U/L Normal 38-[address] [facility] Comment on above: Order Comment: Speci men Type: BLOOD SPECIMENOrdering Facility: [facility] Address: [address] [place] [address] Performed By: #### 2 4323-8 ####[facility] [id number] [place] [address] [place] ALT [Catalytic activity/Vol] 27 U/L Normal 10-[address] [facility] Comment on above: Order Comment: Speci men Type: BLOOD SPECIMENOrdering Facility: [facility] Address: [address] [place] [address] Performed By: #### 2 4323-8 ####[facility] [id number] [place] [address] [place] Anion gap [Moles/Vol] 11 mmol/L Normal 8-[address] [facility] Comment on above: Order Comment: Speci men Type: BLOOD SPECIMENOrdering Facility: [facility] Address: [address] [place] [address] Performed By: #### 2 4323-8 ####[facility] [id number] [address] [place] [address] [place] AST [Catalytic activity/Vol] 29 U/L Normal 14-[address] [facility] Comment on above: Order Comment: Speci men Type: BLOOD SPECIMENOrdering Facility: [facility] Address: [address] [place] [address] Performed By: #### 2 4323-8 ####[facility] [id number] [place] [id number] [place] Bilirubin [Mass/Vol] 0.5 mg/dL Normal 0.2-1.[address] [facility] Comment on above: Order Comment: Speci men Type: BLOOD SPECIMENOrdering Facility: [facility] Address: [address] [place] [address] Performed By: #### 2 4323-8 ####[facility] [id number] [place] [address] [place] Calcium [Mass/Vol] 9.5 mg/dL Normal 8.5-10.2 [facility] Comment on above: Order Comment: Speci men Type: BLOOD SPECIMENOrdering Facility: [facility] Address: [address] [place] [address] Performed By: #### 2 4323-8 ####[facility]CLIA [id number] [place] [address] [place] Chloride [Moles/Vol] 105 mmol/L Normal 98-[address] [facility] Comment on above: Order Comment: Speci men Type: BLOOD SPECIMENOrdering Facility: [facility] Address: [address] [place], [place] [address] Performed By: #### 2 4323-8 ####[facility]CLIA [id number] [address] [address] [place] CO2 [Moles/Vol] 25 mmol/L Normal 22-[address] [facility] Comment on above: Order Comment: Speci men Type: BLOOD SPECIMENOrdering Facility: [facility] Address: [address] [place] [address] Performed By: #### 2 4323-8 ####[facility]IA [id number] [place] [id number] [place] Creatinine [Mass/Vol] 1.04 mg/dL Normal 0.73-1.[address] [facility] Comment on above: Order Comment: Speci men Type: BLOOD SPECIMENOrdering Facility: [facility] Address: [address] [place] [address] Performed By: #### 2 4323-8 ####[facility]IA [id number] [address] STATES OF [facility] Creatinine and Glomerular filtration rate.predicted panel (S/P/Bld) 79 mL/min/1.73m??? Normal >=[address] [facility] Comment on above: Order Comment: Speci men Type: BLOOD SPECIMENOrdering Facility: [facility] Address: [address] [place] [address] Result Comment: Kelli mated Glomerular Filtration Rate (eGFR) is calculated using the 2020 CKD-EPI creatinine equation. This equation utilizes serum creatinine, sex, and age as parameters. The creatinine assay has traceable calibration to isotope dilution-mass spectrometry. Refer to KDIGO guidelines for clinical interpretation. In patients with unstable renal function, e.g. those with acute kidney injury, the eGFR may not accurately reflect actual GFR. Performed By: #### 2 4323-8 ####[facility]IA [id number] [place] [address] [place] Glucose [Mass/Vol] 86 mg/dL Normal 74-99 [facility] Comment on above: Order Comment: Speci men Type: BLOOD SPECIMENOrdering Facility: [facility] Address: [address] [place] [address] Result Comment: The [place] Diabetes Association (ADA) provides guidance for cutoff values for fasting glucose and random glucose. The ADA defines fasting as no caloric intake for at least 8 hours. Fasting plasma glucose results between 100 to 125 mg/dL indicate increased risk for diabetes (prediabetes). Fasting plasma glucose results greater than or equal to 126 mg/dL meet the criteria for diagnosis of diabetes. In the absence of unequivocal hyperglycemia, results should be confirmed by repeat testing. In a patient with classic symptoms of hyperglycemia or hyperglycemic crisis, random plasma glucose results greater than or equal to 200 mg/dL meet the criteria for diagnosis of diabetes. Reference: Standards of Medical Care in Diabetes 2016, [place] Diabetes Association. Diabetes Care. 2016.39(Suppl 1). Performed By: #### 2 4323-8 ####[facility] LABCLIA [id number] [place] [address] [place] Potassium [Moles/Vol] 4.8 mmol/L Normal 3.7-5.[address] [facility] Comment on above: Order Comment: Speci men Type: BLOOD SPECIMENOrdering Facility: [facility] Address: [address] [place] [address] Performed By: #### 2 4323-8 ####[facility]IA [id number] [place] [address] [place] Protein [Mass/Vol] 6.7 g/dL Normal 6.3-8.0 [facility] Comment on above: Order Comment: Speci men Type: BLOOD SPECIMENOrdering Facility: [facility] Address: [address] [place] [address] Performed By: #### 2 4323-8 ####[facility]IA [id number] [place] [address] [place] Sodium [Moles/Vol] 141 mmol/L Normal 136-144 [facility] Comment on above: Order Comment: Speci men Type: BLOOD SPECIMENOrdering Facility: [facility] Address: [address] [place] [address] Performed By: #### 2 4323-8 ####[facility] LABCLIA [id number] [place] [address] [place] Urea nitrogen [Mass/Vol] 25 mg/dL High 9-[address] [facility] Comment on above: Order Comment: Speci men Type: BLOOD SPECIMENOrdering Facility: [facility] Address: [address] [place] [address] Performed By: #### 2 4323-8 ####[facility]CLIA [id number] [address] [place] levETIRAcetam SerPl-mCncon 0 10-22-2024 levETIRAcetam [Mass/Vol] 20.2 ug/mL Normal 12.0-46.[address] [facility] Comment on above: Order Comment: Vitaliy diaz Type: BLOOD SPECIMEN Ordering Facility: [facility] Address: [address] [place] [address] Result Comment: This test is not suitable for patients receiving treatment with the drug brivaracetam (Briviact). The drug causes an interference that may lead to falsely elevated levetiracetam results. Reference ranges and high/low indicator flags are provided as general guidelines only. The treating physician must determine appropriate target levels/dosing based on the specific clinical situation. This test was developed, and its performance characteristics determined by the [facility] Department of Pathology and Laboratory Medicine. It has not been cleared or approved by the FDA. The [facility] Department of Pathology and Laboratory Medicine is regulated under CLIA as qualified to perform high-complexity testing. This test is used for clinical purposes. It should not be regarded as investigational or for research. 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 Treatment complicated by slight peritumoral edema with symptoms. HPI: The patient is a 64 year old, right handed male who presents with above diagnosis, for an opinion regarding the role of radiation therapy in the management of the patient's disease. Final recommendations will be communicated back to the requesting physician by way of the shared medical record, or letter to requesting physician via [place] mail. History of Present Illness: Watson Rodriguez is a 63 year old male investigated for right leg numbness and weakness (couldn't stand on it) April 2020. Work up for lumbar spine cause non conclusive. 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 His right leg still numb and weakness. High step gait to avoid dragging his right lower extremity. He had GK-SRS to the tumor (25Gy/5fx) from 08/16/2020-08/20/2020. 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 He has since seen neurology with Dr. Altamirano and switched to Dr. Centeno for seizure management. Dr. Centeno had treated him with Avastin completed April 2022 with improvement at the time, but has since developed recurrence of his symptoms including R foot paresthesias possibly sensory seizures. 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 Dr. Centeno discussed possible options, more along the lines of treatment for radiation necrosis. Dr. Rodriguez is interested in hearing other options. Dr. 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 Takes clonazepam with help. AED: Keppra 1000 mg AM AND 1000 mg PM Steroids: dexamethasone 2 mg PRN ALLERGIES Allergen Reactions Atorvastatin Myalgia, Other: See Comments MEDICATIONS: CPAP/BIPAP/OTHER APAP 5-20 cmH2O DME [facility] dexAMETHasone (DECADRON) 2 mg tablet 2 mg the day prior to the flight, the day of the flight and the day after the flight. clonazePAM orally disintegrating (KLONOPIN WAFER) 1 mg disintegrating tablet Dissolve 1 tablet under the tongue three times a day as needed for up to 30 days. levETIRAcetam (KEPPRA) 500 mg tablet Take 2 tablets by mouth two times a day. sildenafil (VIAGRA) 100 mg tablet Take 1 pill 1 hour prior to sexual activity on empty stomach CPAP Initiate Auto PAP @ 5-20 cm of water with humidification. Mask (per patient preference) optional chin strap (if indicated) , filters, tubing, humidifier and lifetime supplies. rosuvastatin (CRESTOR) 40 mg tablet Take 40 mg by mouth. Multivitamin capsule Take 1 capsule by mouth once daily. aspirin(ADULT LOW DOSE ASPIRIN 81 MG TAB, DELAYED RELEASE) Take one(1) tablet daily. PAST MEDICAL HISTORY Diagnosis Date Acute myocardial infarction of lateral wall (HCC) 2012 s/p LAD stent Aortic valve stenosis Atrophy of left kidney Benign neoplasm of colon Benign neoplasm of meninges (HCC) 08/02/2020 Bursitis CAD (coronary artery disease) Chronic kidney disease External hemorrhoids Hammertoe of right foot Hyperlipidemia Hypokalemia Irregular heart rhythm Lipoma Meningioma (HCC) Mitral valve prolapse Neuroma MELL on CPAP Seizure (HCC) focal motor Prior radiation therapy, collagen vascular disease, or inflammatory bowel disease: Yes, previous GKRS 08/20/20. Any implanted or external electric devices? No PAST SURGICAL HISTORY Procedure Laterality Date COLONOSCOPY FLX DX W/COLLJ SPEC WHEN PFRMD 10/29/2009 Colonoscopy COLONOSCOPY FLX DX W/COLLJ SPEC WHEN PFRMD 2016 HEMORRHOID;BAND LIGAT, SNGL/MUL 12/2016 MRI 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 PAST SURGICAL HISTORY OF Left 04/2017 left knee arthroscopy - meniscus PAST SURGICAL HISTORY OF 01/2013 PTCA x 1 - LAD PT ED HEART AND VASCULAR 2012 coronary angioplasty graft and stent FAMILY HISTORY Problem Relation Age of Onset Colon Cancer Mother ascending large intestine removed 2008 at 80 years old Prostate Cancer Brother Colon Cancer Maternal Grandmother portion lower colon removed 60 years ol (more content not included)... Normal [facility] CNPNon 09-19-2024 CNPN Telephone (4CQ) WATSON RODRIGUEZ ([id number]) 1960 M DNS Date Time Provider Department 09/19/24 LAKISHA CASEY 4CQ During your visit today, we recorded the following information about you: Rand Gabriel 09/19/2024 4:17 PM Signed [facility] called in stating they received compliance download for pt but stated he is not with them but is with [facility]. Please advise Calixto Rae LPN 09/19/2024 4:25 PM Signed Thank you. I will fax them. Calixto Rae LPN Allergies As of Date: 09/19/2024 Noted Allergy Reaction ATORVASTATIN 03/30/2014 17 - Myalgia 14 - Other: See Comments Date Reviewed: 09/17/2024 Reviewed by: Calixto Rae LPN - Fully Assessed Reason for Visit: Patient Update [1234] Prescriptions as of 09/25/2024 - CPAP/BIPAP/OTHER APAP 5-20 cmH2O DME [facility] - dexAMETHasone (DECADRON) 2 mg tablet 2 mg the day prior to the flight, the day of the flight and the day after the flight. - clonazePAM orally disintegrating (KLONOPIN WAFER) 1 mg disintegrating tablet Dissolve 1 tablet under the tongue three times a day as needed for up to 30 days. - levETIRAcetam (KEPPRA) 500 mg tablet Take 2 tablets by mouth two times a day. - sildenafil (VIAGRA) 100 mg tablet Take 1 pill 1 hour prior to sexual activity on empty stomach - CPAP Initiate Auto PAP @ 5-20 cm of water with humidification. Mask (per patient preference) optional chin strap (if indicated) , filters, tubing, humidifier and lifetime supplies. - rosuvastatin (CRESTOR) 40 mg tablet Take 40 mg by mouth. - Multivitamin capsule Take 1 capsule by mouth once daily. - aspirin(ADULT LOW DOSE ASPIRIN 81 MG TAB, DELAYED RELEASE) Take one(1) tablet daily. Problem List As Of Date 09/19/2024 Noted Resolved Benign Neoplasm of Colon [D12.6] 10/29/2009 Special Screening for Malignant Neoplasms, [place]*10/29/2009 Personal history of colonic polyps [Z86.0100] 11/23/2016 Inflamed external hemorrhoid [K64.4] 11/23/2016 Meningioma (HCC) [D32.9] 08/02/2020 Localized edema [R60.0] 10/22/2020 Brain edema (HCC) [G93.6] 11/10/2020 Coronary artery disease involving benton lopez*12/17/2020 Nonrheumatic aortic valve stenosis [I35.0] 12/17/2020 Mixed hyperlipidemia [E78.2] 12/17/2020 Recurrent seizures (HCC) [G40.909] 01/08/2021 01/12/2021 Renal atrophy, left [N26.1] 01/27/2021 CKD (chronic kidney disease) stage 1, GFR 90 ml*01/27/2021 MELL on CPAP [G47.33] 01/31/2021 Tinnitus, right ear [H93.11] 02/20/2021 Sensorineural hearing loss, bilateral [H90.3] 02/20/2021 Seizure (HCC) [R56.9] 05/18/2021 Focal motor seizure (HCC) [G40.109] 11/13/2020 History of myocardial infarction [I25.2] 01/15/2013 Hypokalemia [E87.6] 05/30/2022 Intracranial meningioma (HCC) [D32.0] 05/30/2022 Light sensitivity [R68.89] 08/21/2020 Mitral valve prolapse [I34.1] 01/20/2013 Myocardial ischemia [I25.9] 01/20/2013 Other specified disorders of the skin and subcu*01/23/2022 Presence of coronary angioplasty implant and gr*02/08/2022 Radiological procedure and radiotherapy as the *01/23/2022 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 Weakness [R53.1] 01/23/2022 Irregular heart rhythm [I49.9] 04/17/2023 Diagnosed: 04/25/2023 Lipoma [D17.9] 04/25/2023 Diagnosed: 04/25/2023 Hammertoe of right foot [M20.41] 05/04/2023 Foot pain, right [M79.671] 05/04/2023 Numbness [R20.0] 05/04/2023 Bursitis of right foot [M77.51] 05/04/2023 Neuroma [D36.10] 05/04/2023 Glioblastoma (HCC) [C71.9] 09/13/2023 Encounter Status:Closed by LAKISHA CASEY on 09/25/24 [facility] CNOVon 09-17-2024 CNOV Office Visit (SLEWST ) WATSON RODRIGUEZ ([id number]) 1960 M DNS Date Time Provider Department 09/17/24 1:00 PM LAKISHA CASEY During your visit today, we recorded the following information about you: Pulse Respiration Blood pressure Weight 60/minute 16/minute 106/65 83.5 kg Lakisha Casey, HONEY.[employer]ARMWORK[employer] 09/21/2024 7:58 PM Signed [facility] Follow up/ Established patient visit Date of last visit : 09/11/23 The following Impression/Plan was copied and pasted from the patient's last [facility] visit on 09/11/23: IMPRESSION: Mell on cpap (primary encounter diagnosis) Symptomatic localization-related epilepsy (hcc) History of myocardial infarction Watson Rodriguez is a very pleasant 63 year old male with PMH of MELL on CPAP, intracranial meningioma, seizure, CAD, nonrheumatic aortic valve stenosis, HLD, history of AK, MVP, myocardial ischemia, presence of coronary angioplasty implant and graft, tinnitus, bilateral hearing loss, colonic polyps, left renal atrophy, and stage I CKD. HST 01/21/2021 revealed at least moderate MELL (AHI of 19.2) that was associated with a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 Other: The visualized paranasal sinuses and mastoid air cells are clear. The orbits and extracranial soft tissues are unremarkable. IMPRESSION IMPRESSION: Unchanged appearance of vertex meningioma with mass effect on the left greater than right paracentral lobules. Paper Goods Machine Operator: PSCB Transcribe Date/Time: Sep 01 2024 11:25A Dictated by : GAB GODDARD MD This examination was interpreted and the report reviewed and electronically signed by: GAB GODDARD MD on Sep 01 2024 11:41AM EST [facility] Radiology Study observation (narrative) [facility] MR Brain WO and W contrast I VOrdered By: Ccf Provider on 09-01-[address] [facility] MRI BRAIN WO/W IVCONon 09-01 MRI BRAIN WO/W IVCON * * *Final Report* * * DATE OF EXAM: Sep 01 2024 10:20AM [facility] 0295 - MRI BRAIN WO/W IVCON / PROCEDURE REASON: Meningioma (HCC) * * * * Physician Interpretation * * * * EXAMINATION: MRI BRAIN WO/W IVCON CLINICAL HISTORY: Meningioma. Follow-up examination. TECHNIQUE: Intracranial mass protocol without and with contrast. MQ: MRBWOW_2 Contrast: 8.5 mL Elucirem IV COMPARISON: MRI brain 08/31/2023 RESULT: Acute Change: There is no evidence of restricted diffusion to suggest an acute infarct. Hemorrhage: No evidence of prior parenchymal hemorrhage on the susceptibility weighted images. Mass Lesion/ Mass Effect: Redemonstrated enhancing extra-axial lesion at the vertex, eccentric to the left. The lesion measures 4.4 x 3.4 x 3.3 cm (oblique AP by transverse by craniocaudal), not significantly changed in size since 08/31/2023 when utilizing digital coregistration for comparison in identical planes. The lesion invades and expands the superior sagittal sinus. There is moderate localized mass effect on the left greater than right paracentral lobules. Vasogenic edema within the adjacent left frontoparietal parenchyma is unchanged. Chronic Change: The white matter is within normal limits of signal intensity for age. Parenchyma: No significant volume loss for age. The brain parenchyma is otherwise within normal limits of signal intensity and morphology. Ventricles: Normal caliber and morphology. Skull Base: Hypothalamic and pituitary region are grossly normal. Craniocervical junction is normal. No significant marrow replacement process. Vasculature: Major intracranial arterial structures, and dural venous sinuses show typical flow void, suggesting patency by spin echo criteria. Other: The visualized paranasal sinuses and mastoid air cells are clear. The orbits and extracranial soft tissues are unremarkable. IMPRESSION: Unchanged appearance of vertex meningioma with mass effect on the left greater than right paracentral lobules. Paper Goods Machine Operator: PSCB Transcribe Date/Time: Sep 01 2024 11:25A Dictated by : GAB GODDARD MD This examination was interpreted and the report reviewed and electronically signed by: GAB GODDARD MD on Sep 01 2024 11:41AM EST [id number] Normal [facility] CNPNon 06-22-2024 CNPN Telephone (MEPRAD) WATSON RODRIGUEZ ([id number]) 1960 [facility] Date Time Provider Department 06/22/24 ORQUIDEA LEY MEPRAD During your visit today, we recorded the following information about you: Orquidea Ley MD 06/22/2024 3:58 PM Signed FOLLOW UP ENDOSCOPY - RESULTS AND RECOMMENDATIONS NAME: Watson Rodriguez CLINIC NO.: [id number] : 1960 DATE: June 22, 2024 PRIMARY CARE PROVIDER: MD Willie Alvarezgricel Rodriguez is a patient referred for follow-up/surveillance colonoscopy after Dr. Peterson had removed a large cecal polyp 6 months previously. I performed lower endoscopy on June 09, 2024. The patient was found to have: Lower Endoscopy Impression: - Three small (4-6 mm) polyps in the transverse colon and in the cecum, removed with a cold snare. Resected and retrieved. Clips (MR conditional) were placed. 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 - Diverticulosis in the sigmoid colon. - The examination was otherwise normal on direct and retroflexion views. Pathology demonstrated: FINAL DIAGNOSIS A. Cecum polyp, biopsy: - Multiple superficial fragments of villous adenoma, negative for high-grade dysplasia. B. Proximal transverse colon polyp x 2, biopsy: - Multiple fragments of tubular adenoma. IMPRESSION: Small residual polyp noted at the area of cecal sessile polyp removed in the past which returned as villous adenoma, smaller tubular adenomas in the transverse colon PLAN: INSTRUCTIONS FOLLOWING A POLYP FOUND AT COLONOSCOPY You were found to have an adenomatous colon polyp. I recommend you undergo repeat endoscopy in 2 years. If you note bleeding, change in bowel habits, or other suspicious colon related symptoms before that time, those symptoms should be evaluated as necessary. If you have any difficulties or concerns, you should contact our office immediately. The patient is instructed to follow-up with your primary care provider I have instructed my staff to forward the above information to the patient and to the appropriate providers Allergies As of Date: 06/22/2024 Noted Allergy Reaction ATORVASTATIN 03/30/2014 17 - Myalgia 14 - Other: See Comments Date Reviewed: 06/09/2024 Reviewed by: Sabra Stout RN - Fully Assessed Reason for Visit: Results [95] Prescriptions as of 06/22/2024 - clonazePAM orally disintegrating (KLONOPIN WAFER) 1 mg disintegrating tablet Dissolve 1 tablet under the tongue three times a day as needed for up to 30 days. - levETIRAcetam (KEPPRA) 500 mg tablet Take 2 tablets by mouth two times a day. - CPAP/BIPAP/OTHER Type .CPAPSettings into a note to see current settings/supplies/DME information. - sildenafil (VIAGRA) 100 mg tablet Take 1 pill 1 hour prior to sexual activity on empty stomach - CPAP/BIPAP/OTHER MASK REFITTING. Continue Auto CPAP with current settings of 5-20 cm H2O. Lifetime supplies for Auto CPAP, including patient preferred mask, head gear, heated tubing, humidity, filters, chin strap. Dx: Obstructive Sleep Apnea G47.33 DME: [facility] [phone] ?fax# [phone] Fax download reports to [phone]. - dexAMETHasone (DECADRON) 2 mg tablet 2 mg the day prior to the flight, the day of the flight and the day after the flight. - CPAP Initiate Auto PAP @ 5-20 cm of water with humidification. Mask (per patient preference) optional chin strap (if indicated) , filters, tubing, humidifier and lifetime supplies. - rosuvastatin (CRESTOR) 40 mg tablet Take 40 mg by mouth. - Multivitamin capsule Take 1 capsule by mouth once daily. - aspirin(ADULT LOW DOSE ASPIRIN 81 MG TAB, DELAYED RELEASE) Take one(1) tablet daily. Problem List As Of Date 06/22/2024 Noted Resolved Benign Neoplasm of Colon [D12.6] 10/29/2009 Special Screening for Malignant Neoplasms, [place]*10/29/2009 Personal history of colonic polyps [Z86.0100] 11/23/2016 Inflamed external hemorrhoid [K64.4] 11/23/2016 Meningioma (HCC) [D32.9] 08/02/2020 Localized edema [R60.0] 10/22/2020 Brain edema (HCC) [G93.6] 11/10/2020 Coronary artery disease involving benton lopez*12/17/2020 Nonrheumatic aortic valve stenosis [I35.0] 12/17/2020 Mixed hyperlipidemia [E78.2] 12/17/2020 Recurrent seizures (HCC) [G40.909] 01/08/2021 01/12/2021 Renal atrophy, left [N26.1] 01/27/2021 CKD (chronic kidney disease) stage 1, GFR 90 ml*01/27/2021 MELL on CPAP [G47.33] 01/31/2021 Tinnitus, right ear [H93.11] 02/20/2021 Sensorineural hearing loss, bilateral [H90.3] 02/20/2021 Seizure (HCC) [R56.9] 05/18/2021 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 [facility] 06-13-2024 [facility] Telephone ([facility]) WATSON RODRIGUEZ ([id number]) 1960 M DNS Date Time Provider Department 06/13/24 MIGUELANGEL SPENCE During your visit today, we recorded the following information about you: Allergies As of Date: 06/13/2024 Noted Allergy Reaction ATORVASTATIN 03/30/2014 17 - Myalgia 14 - Other: See Comments Date Reviewed: 06/09/2024 Reviewed by: Sabra Stout, RN - Fully Assessed Prescriptions as of 06/16/2024 - clonazePAM orally disintegrating (KLONOPIN WAFER) 1 mg disintegrating tablet Dissolve 1 tablet under the tongue three times a day as needed for up to 30 days. - levETIRAcetam (KEPPRA) 500 mg tablet Take 2 tablets by mouth two times a day. - CPAP/BIPAP/OTHER Type .CPAPSettings into a note to see current settings/supplies/DME information. - sildenafil (VIAGRA) 100 mg tablet Take 1 pill 1 hour prior to sexual activity on empty stomach - CPAP/BIPAP/OTHER MASK REFITTING. Continue Auto CPAP with current settings of 5-20 cm H2O. Lifetime supplies for Auto CPAP, including patient preferred mask, head gear, heated tubing, humidity, filters, chin strap. Dx: Obstructive Sleep Apnea G47.33 DME: [facility] [phone] ?fax# [phone] Fax download reports to [phone]. - dexAMETHasone (DECADRON) 2 mg tablet 2 mg the day prior to the flight, the day of the flight and the day after the flight. - CPAP Initiate Auto PAP @ 5-20 cm of water with humidification. Mask (per patient preference) optional chin strap (if indicated) , filters, tubing, humidifier and lifetime supplies. - rosuvastatin (CRESTOR) 40 mg tablet Take 40 mg by mouth. - Multivitamin capsule Take 1 capsule by mouth once daily. - aspirin(ADULT LOW DOSE ASPIRIN 81 MG TAB, DELAYED RELEASE) Take one(1) tablet daily. Problem List As Of Date 06/13/2024 Noted Resolved Benign Neoplasm of Colon [D12.6] 10/29/2009 Special Screening for Malignant Neoplasms, [place]*10/29/2009 Personal history of colonic polyps [Z86.0100] 11/23/2016 Inflamed external hemorrhoid [K64.4] 11/23/2016 Meningioma (HCC) [D32.9] 08/02/2020 Localized edema [R60.0] 10/22/2020 Brain edema (HCC) [G93.6] 11/10/2020 Coronary artery disease involving benton lopez*12/17/2020 Nonrheumatic aortic valve stenosis [I35.0] 12/17/2020 Mixed hyperlipidemia [E78.2] 12/17/2020 Recurrent seizures (HCC) [G40.909] 01/08/2021 01/12/2021 Renal atrophy, left [N26.1] 01/27/2021 CKD (chronic kidney disease) stage 1, GFR 90 ml*01/27/2021 MELL on CPAP [G47.33] 01/31/2021 Tinnitus, right ear [H93.11] 02/20/2021 Sensorineural hearing loss, bilateral [H90.3] 02/20/2021 Seizure (HCC) [R56.9] 05/18/2021 Focal motor seizure (HCC) [G40.109] 11/13/2020 History of myocardial infarction [I25.2] 01/15/2013 Hypokalemia [E87.6] 05/30/2022 Intracranial meningioma (HCC) [D32.0] 05/30/2022 Light sensitivity [R68.89] 08/21/2020 Mitral valve prolapse [I34.1] 01/20/2013 Myocardial ischemia [I25.9] 01/20/2013 Other specified disorders of the skin and subcu*01/23/2022 Presence of coronary angioplasty implant and gr*02/08/2022 Radiological procedure and radiotherapy as the *01/23/2022 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 Weakness [R53.1] 01/23/2022 Irregular heart rhythm [I49.9] 04/17/2023 Diagnosed: 04/25/2023 Lipoma [D17.9] 04/25/2023 Diagnosed: 04/25/2023 Hammertoe of right foot [M20.41] 05/04/2023 Foot pain, right [M79.671] 05/04/2023 Numbness [R20.0] 05/04/2023 Bursitis of right foot [M77.51] 05/04/2023 Neuroma [D36.10] 05/04/2023 Glioblastoma (HCC) [C71.9] 09/13/2023 Encounter Status:Closed by CHELSEY CAMPBELL on 06/16/24 [facility] ANES POSTPROC EVALon 025 ANES POSTPROC EVAL HNO ID: [id number] Author: REYMUNDO COUCH MD Service: Anesthesiology Author Type: Anesthesiologist Type: Anesthesia Postprocedure Evaluation Filed: 06/09/2024 12:08 Note Text: POST ANESTHESIA EVALUATION NOTE : 1960 Procedure Summary Date: 06/09/24 Room / Location: [facility] Endoscopy Anesthesia Start: 1058 Anesthesia Stop: 1146 Procedure: COLONOSCOPY SCREENING Diagnosis: History of colonic polyps (High risk colon cancer surveillance: Personal History of adenomatous polyps) Scheduled Providers: Orquidea Ley MD; Reymundo Couch MD; Judy Lezama APRN.RECONCILIATION ACCOUNTANT Responsible Provider: Reymundo Couch MD Anesthesia Type: MAC ASA Status: 4 Anesthesia Type: MAC Last Vitals Vitals Value Taken Time BP 119/64 06/09/24 1201 Temp 36.5 06/09/24 1207 Pulse 45 06/09/24 1206 Resp 15 06/09/24 1207 SpO2 94 % 06/09/24 1206 Vitals shown include unfiled device data. Post Anesthesia Patient Status Patient Evaluation: bedside. Anticipated Disposition: phase 2 then home. Neurological Status: aware and responsive. Pulmonary Status: breathing comfortably on room air Airway Control: returned to baseline unsupported. Cardiovascular Status: stable. Pain Management: clinically adequate Postoperative Hydration: acceptable. Intraoperative Events: no significant anesthesia events Post Operative Nausea/Vomiting Status: no significant post operative nausea or vomiting Recommendation: continue current plan of care. Anesthesia Observations No Documentation SIGNATURE: Reymundo Couch MD PATIENT NAME: Watson Rodriguez DATE: June 09, 2024 TIME: 12:07 PM CSN: [id number] Normal [facility] ANES PRE-OPon 06-09-2024 ANES PRE-OP HNO ID: [id number] Author: REYMUNDO COUCH MD Service: Anesthesiology Author Type: Anesthesiologist Type: Anesthesia Preprocedure Evaluation Filed: 06/09/2024 10:52 Note Text: ANESTHESIOLOGY DAY OF SURGERY NOTE : 1960 Procedure Information Date/Time: 06/09/24 1145 Scheduled providers: Orquidea Ley MD; Reymundo Couch MD; Judy Lezama APRN.RECONCILIATION ACCOUNTANT Procedure: COLONOSCOPY SCREENING Location: [facility] Endoscopy Estimated body mass index is 25.38 kg/m? as calculated from the following: Height as of this encounter: 180.3 cm (5' 11). Weight as of this encounter: 82.6 kg (182 lb). Most recent hematocrit and potassium results: Hematocrit 45.6 05/30/2024 Potassium 4.2 05/30/2024 Relevant Problems ANESTHESIA (+) MELL on CPAP CARDIO (+) Coronary artery disease involving benton coronary artery of benton heart without angina pectoris (+) Inflamed external hemorrhoid (+) Mitral valve prolapse (+) Nonrheumatic aortic valve stenosis -RENAL (+) CKD (chronic kidney disease) stage 1, GFR 90 ml/min or greater (+) Renal atrophy, left NEURO-PSYCH (+) Focal motor seizure (HCC) (+) History of myocardial infarction (+) Personal history of colonic polyps (+) Seizure (HCC) (+) Symptomatic localization-related epilepsy (HCC) PULMONARY (+) MELL on CPAP I - PHYSICAL EVALUATION AIRWAY Patient intubated: No. Tracheostomy tube not present Mallampati: II. TM distance: >3 FB. Neck ROM: full ROM without neurological symptoms. Mouth opening: adequate. Short neck: no. Thick neck: no DENTAL Normal dental observations. Dental findings: teeth intact. II - ANESTHESIA PLAN ASA Score: 4 Anesthetic Plan: MAC The patient is not a current smoker. NPO Status: adequate Beta Barbara Monitoring Plan Monitoring plan: standard ASA. Post Procedure Analgesic Plan Postoperative analgesic plan: parenteral or oral opioids and multimodal analgesia. Informed Consent Anesthetic risks, benefits, alternatives, personnel and consent discussed: yes. Patient / Responsible Democrat agrees to proceed: yes Patient / Surrogate agrees to blood products: blood products not planned DNR status not reviewed with patient and/or family prior to surgery. Significant changes in the patient condition since the History and Physical, not otherwise documented in primary service progress note: no. Potential Anesthesia issues that may suggest increased risk of complications or contraindication to planned procedure: none. Discussed the possibility of lip / dental damage: yes Vitals Value Taken Time BP 111/57 06/09/24 1042 Pulse Resp 18 06/09/24 1042 Temp 36.2 ?C (97.2 ?F) 06/09/24 1042 SpO2 96 % 06/09/24 1042 Outpatient Medications as of 06/09/2024 Medication Sig levETIRAcetam (KEPPRA) 500 mg tablet Take 2 tablets by mouth two times a day. CPAP Initiate Auto PAP @ 5-20 cm of water with humidification. Mask (per patient preference) optional chin strap (if indicated) , filters, tubing, humidifier and lifetime supplies. rosuvastatin (CRESTOR) 40 mg tablet Take 40 mg by mouth. clonazePAM orally disintegrating (KLONOPIN WAFER) 1 mg disintegrating tablet Dissolve 1 tablet under the tongue three times a day as needed for up to 30 days. CPAP/BIPAP/OTHER Type .CPAPSettings into a note to see current settings/supplies/DME information. sildenafil (VIAGRA) 100 mg tablet Take 1 pill 1 hour prior to sexual activity on empty stomach CPAP/BIPAP/OTHER MASK REFITTING. Continue Auto CPAP with current settings of 5-20 cm H2O. Lifetime supplies for Auto CPAP, including patient preferred mask, head gear, heated tubing, humidity, filters, chin strap. Dx: Obstructive Sleep Apnea G47.33 DME: [employer] ph [phone] fax# [phone] Fax download reports to [phone]. dexAMETHasone (DECADRON) 2 mg tablet 2 mg the day prior to the flight, the day of the flight and the day after the flight. Multivitamin capsule Take 1 capsule by mouth once daily. aspirin(ADULT LOW DOSE ASPIRIN 81 MG TAB, DELAYED RELEASE) Take one(1) tablet daily. Facility-Administered Medications as of 06/09/2024 Medication Dose Route Frequency lactated ringers iv infusion 30 mL/hr INTRAVENOUS CONTINUOUS I have interviewed and examined the patient. I have reviewed the medical record and/or the pre-anesthesia evaluation, pertinent labs, and test results. This contains updated information obtained within 48 hours of Surgery/Procedure. SIGNATURE: Reymundo Couch MD PATIENT NAME: Watson Rodriguez DATE: June 09, 2024 TIME: 10:51 AM CSN: [id number] Normal [facility] Colonoscopyon 06-09-2024 Colonoscopy [facility] Gastrointestinal Endoscopy Patient Name: Watson Rodriguez Procedure Date: 06/09/2024 10:53 AM Date of : 1960 Admit Type: Outpatient Age: 64 Room: [facility] Gender: Male Note Status: Finalized Attending MD: Orquidea Ley MD, [id number] Procedure: Colonoscopy Indications: High risk colon cancer surveillance: Personal history of adenomatous colonic polyps Providers: Orquidea Ley MD Patient Profile: This is a 64 year old male. Refer to note in patient chart for documentation of history and physical. Last Colonoscopy: within the past 3 years. Referring Physician: Orquidea Ley MD (Referring MD) Medicines: Monitored Anesthesia Care Complications: No immediate complications. Requesting Provider: Procedure: Pre-Anesthesia Assessment: - Prior to the procedure, a History and Physical was performed, and patient medications and allergies were reviewed. The patient is competent. The risks and benefits of the procedure and the sedation options and risks were discussed with the patient. All questions were answered and informed consent was obtained. Patient identification and proposed procedure were verified by the physician, the nurse and the contracting manager in the procedure room. Prophylactic Antibiotics: The patient does not require prophylactic antibiotics. Prior Anticoagulants: The patient has taken no anticoagulant or antiplatelet agents. ASA Grade Assessment: II - A patient with mild systemic disease. After reviewing the risks and benefits, the patient was deemed in satisfactory condition to undergo the procedure. The anesthesia plan was to use monitored anesthesia care (MAC). Immediately prior to administration of medications, the patient was re-assessed for adequacy to receive sedatives. The heart rate, respiratory rate, oxygen saturations, blood pressure, adequacy of pulmonary ventilation, and response to care were monitored throughout the procedure. The physical status of the patient was re-assessed after the procedure. After I obtained informed consent, the scope was passed under direct vision. Throughout the procedure, the patient's blood pressure, pulse, and oxygen saturations were monitored continuously. The Colonoscope was introduced through the anus and advanced to the cecum, identified by the appendiceal orifice, ileocecal valve and palpation. The colonoscopy was performed without difficulty. The patient tolerated the procedure well. The quality of the bowel preparation was good. The ileocecal valve, appendiceal orifice, and rectum were photographed. Scope Withdrawal Time: 0 hours 19 minutes 1 second Moderate Sedation: MAC anesthesia was administered by the anesthesia team. Total Procedure Duration: 0 hours 25 minutes 11 seconds Findings: The perianal and digital rectal examinations were normal. Three sessile polyps were found in the transverse colon and cecum. The polyps were small (4-6 mm) in size. These polyps were removed with a cold snare. Resection and retrieval were complete. To prevent bleeding after the polypectomy, two hemostatic clips were successfully placed (MR conditional). 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 There was no bleeding at the end of the procedure. Multiple medium-mouthed diverticula were found in the sigmoid colon. The exam was otherwise without abnormality on direct and retroflexion views. Impression: - Three small (4-6 mm) polyps in the transverse colon and in the cecum, removed with a cold snare. Resected and retrieved. Clips (MR conditional) were placed. 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 - Diverticulosis in the sigmoid colon. - The examination was otherwise normal on direct and retroflexion views. Recommendation: - Discharge patient to home. - Resume previous diet. - Continue present medications. - Telephone my office for pathology results in 1 week. - Patient has a contact number available for emergencies. The signs and symptoms of potential delayed complications were discussed with the patient. Return to normal activities tomorrow. Written discharge instructions were provided to the patient. - Repeat colonoscopy is recommended. The colonoscopy date will be determined based on pathology results from today's exam and current guidelines. Procedure Code(s): --- Professional --- 16129, Colonoscopy, flexible; with removal of tumor(s), polyp(s), or other lesion(s) by snare technique CPT copyright 2020 [employer]. All rights reserved. The codes documented in this report are preliminary and upon administrative hearing officer review may be revised to meet current compliance requirements. Attending Participation: I was present and participated during the entire procedure, including non-ortega portions, and during the administration and monitoring of Moderate Sedation. Scope In: 11:12:00 AM Scop (more content not included)... Normal [facility] Colonoscopy Study observatio non 06-09-2024 [facility] Gastrointestinal Endoscopy Patient Name: Watson Rodriguez Procedure Date: 06/09/2024 10:53 AM Date of : 1960 Admit Type: Outpatient Age: 64 Room: [facility] Gender: Male Note Status: Finalized Attending MD: Orquidea Ley MD, [id number] Procedure: Colonoscopy Indications: High risk colon cancer surveillance: Personal history of adenomatous colonic polyps Providers: Orquidea Ley MD Patient Profile: This is a 64 year old male. Refer to note in patient chart for documentation of history and physical. Last Colonoscopy: within the past 3 years. Referring Physician: Orquidea Ley MD (Referring MD) Medicines: Monitored Anesthesia Care Complications: No immediate complications. Requesting Provider: Procedure: Pre-Anesthesia Assessment: - Prior to the procedure, a History and Physical was performed, and patient medications and allergies were reviewed. The patient is competent. The risks and benefits of the procedure and the sedation options and risks were discussed with the patient. All questions were answered and informed consent was obtained. Patient identification and proposed procedure were verified by the physician, the nurse and the contracting manager in the procedure room. Prophylactic Antibiotics: The patient does not require prophylactic antibiotics. Prior Anticoagulants: The patient has taken no anticoagulant or antiplatelet agents. ASA Grade Assessment: II - A patient with mild systemic disease. After reviewing the risks and benefits, the patient was deemed in satisfactory condition to undergo the procedure. The anesthesia plan was to use monitored anesthesia care (MAC). Immediately prior to administration of medications, the patient was re-assessed for adequacy to receive sedatives. The heart rate, respiratory rate, oxygen saturations, blood pressure, adequacy of pulmonary ventilation, and response to care were monitored throughout the procedure. The physical status of the patient was re-assessed after the procedure. After I obtained informed consent, the scope was passed under direct vision. Throughout the procedure, the patient's blood pressure, pulse, and oxygen saturations were monitored continuously. The Colonoscope was introduced through the anus and advanced to the cecum, identified by the appendiceal orifice, ileocecal valve and palpation. The colonoscopy was performed without difficulty. The patient tolerated the procedure well. The quality of the bowel preparation was good. The ileocecal valve, appendiceal orifice, and rectum were photographed. Scope Withdrawal Time: 0 hours 19 minutes 1 second Moderate Sedation: MAC anesthesia was administered by the anesthesia team. Total Procedure Duration: 0 hours 25 minutes 11 seconds Findings: The perianal and digital rectal examinations were normal. Three sessile polyps were found in the transverse colon and cecum. The polyps were small (4-6 mm) in size. These polyps were removed with a cold snare. Resection and retrieval were complete. To prevent bleeding after the polypectomy, two hemostatic clips were successfully placed (MR conditional). 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 There was no bleeding at the end of the procedure. Multiple medium-mouthed diverticula were found in the sigmoid colon. The exam was otherwise without abnormality on direct and retroflexion views. Impression: - Three small (4-6 mm) polyps in the transverse colon and in the cecum, removed with a cold snare. Resected and retrieved. Clips (MR conditional) were placed. 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 - Diverticulosis in the sigmoid colon. - The examination was otherwise normal on direct and retroflexion views. Recommendat (more content not included)... [facility] Radiology Study observation (narrative) [facility] HISTORY PHYSICALon HISTORY PHYSICAL HNO ID: [id number] Author: ORQUIDEA LEY MD Service: General Surgery Author Type: Physician Type: H&P Filed: 06/09/2024 10:51 Note Text: HISTORY AND PHYSICAL Watson Rodriguez 1960 REFERRING PHYSICIAN: Fouzia Amado A* CHIEF COMPLAINT: Consult (Screening for colon cancer) HPI: The patient is a 63 year old male referred for endoscopy. Watson notes no current colon complaints The patient notes no history of upper GI complaints. Watson has undergone prior endoscopy. He underwent colonoscopy for by Dr. Gian Peterson last year and was found to have a slightly incomplete prep but found to have a 25 mm polyp in the cecum that was removed in piecemeal fashion. He had had polyps removed previously in 2016 and a polyp removed by Dr. Al in 2009. His mother and maternal grandmother both had colon cancer. He has 4 children. The patient is being seen by me today at the request of Dr. Breanne Whittington MD for my opinion and advice regarding family history of colon cancer with follow-up for a larger polyp removed in piecemeal fashion. PAST MEDICAL HISTORY PAST MEDICAL HISTORY Diagnosis Date Acute myocardial infarction of lateral wall (HCC) 2012 s/p LAD stent Aortic valve stenosis Atrophy of left kidney Benign neoplasm of colon Benign neoplasm of meninges (HCC) 08/02/2020 Bursitis CAD (coronary artery disease) Chronic kidney disease External hemorrhoids Hammertoe of right foot Hyperlipidemia Hypokalemia Irregular heart rhythm Lipoma Meningioma (HCC) Mitral valve prolapse Neuroma MELL on CPAP Seizure (HCC) focal motor PAST SURGICAL HISTORY PAST SURGICAL HISTORY Procedure Laterality Date COLONOSCOPY FLX DX W/COLLJ SPEC WHEN PFRMD 10/29/2009 Colonoscopy COLONOSCOPY FLX DX W/COLLJ SPEC WHEN PFRMD 2016 HEMORRHOID;BAND LIGAT, SNGL/MUL 12/2016 MRI 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 CPAP/BIPAP/OTHER Type .CPAPSettings into a note to see current settings/supplies/DME information. clonazePAM orally disintegrating (KLONOPIN WAFER) 1 mg disintegrating tablet DISSOLVE 1 TABLET IN MOUTH THREE TIMES DAILY NEEDED (SEIZURES) FOR UP TO 30 DAYS sildenafil (VIAGRA) 100 mg tablet Take 1 pill 1 hour prior to sexual activity on empty stomach CPAP/BIPAP/OTHER MASK REFITTING. Continue Auto CPAP with current settings of 5-20 cm H2O. Lifetime supplies for Auto CPAP, including patient preferred mask, head gear, heated tubing, humidity, filters, chin strap. Dx: Obstructive Sleep Apnea G47.33 DME: [employer] [phone] fax# [phone] Fax download reports to [phone]. levETIRAcetam (KEPPRA) 500 mg tablet Take 2 tablets by mouth two times a day. dexAMETHasone (DECADRON) 2 mg tablet 2 mg the day prior to the flight, the day of the flight and the day after the flight. CPAP Initiate Auto PAP @ 5-20 cm of water with humidification. Mask (per patient preference) optional chin strap (if indicated) , filters, tubing, humidifier and lifetime supplies. rosuvastatin (CRESTOR) 40 mg tablet Take 40 mg by mouth. Multivitamin capsule Take 1 capsule by mouth once daily. aspirin(ADULT LOW DOSE ASPIRIN 81 MG TAB, DELAYED RELEASE) Take one(1) tablet daily. peg 3350-Electrolytes (GOLYTELY) 236-22.74-6.74 -5.86 gram suspension Take 4,000 mL by mouth one time only for 1 dose. Refer to printed prep instructions from your provider. No current facility-administered medications for this visit. ALLERGIES: Atorvastatin PERSONAL HISTORY: SOCIAL HISTORY Social History Tobacco Use Smoking status: Never Smokeless tobacco: Never Vaping Use Vaping Use: Never used Substance Use Topics Alcohol use: No Drug use: No FAMILY HISTORY: FAMILY HISTORY FAMILY HISTORY Problem Relation Age of Onset Colon Cancer Mother ascending large intestine removed 2008 at 80 years old Prostate Cancer Brother Colon Cancer Maternal Grandmother portion lower colon removed 60 years old, colostomy REVIEW OF SYMPTOMS: The review of systems data was entered by the nurse and reviewed by hi Nursing Notes: Milady Velasco LPN 12/07/2023 10:39 AM Signed REVIEW OF SYSTEMS: General: The patient denies fatigue, denies weight loss, denies weight gain, denies feeling hot, and denies feelings of cold. Eyes: The patient denies glaucoma, denies eye injury/surgery, wears glasses or contacts. Ear/Nose/Throat: The patient NOTES allergies, denies hayfever, denies ear infections, and denies bloody noses. Cardiovascular: The patient NOTES chest pain, NOTES heart disease, denies high blood pressure,NOTES cardiac stent, (more content not included)... [facility] SURGICAL PATHOLOGYon 025 CASE REPORT [facility] Comment on above: Order Comment: Speci men Type: TISSUE SPECIMEN Ordering Facility: [facility] Address: [address] [place] [address] Result Comment: Surg ica Pathology Report Case: [id number] Authorizing Provider: Orquidea Ley MD Collected: 06/09/2024 11:23 AM Ordering Location: [facility] Endoscopy Received: 06/09/2024 12:07 PM Pathologist: Estela Voss MD Specimens: A) - Colon, Cecum, Polyp B) - Colon, Transverse, Polyp, Proximal transverse polyps x2 Performed By: #### S #### [facility] CLIA [id number] [address] [place] [address] FINAL DIAGNOSIS Normal [facility] Comment on above: Order Comment: Speci men Type: TISSUE SPECIMEN Ordering Facility: [facility] Address: [address] [place] [address] Result Comment: A. C ecum polyp, biopsy: - Multiple superficial fragments of villous adenoma, negative for high-grade dysplasia. B. Proximal transverse colon polyp x 2, biopsy: - Multiple fragments of tubular adenoma. Performed By: #### S #### [facility] CLIA [id number] [address] [place] [address] FINAL PERFORMING LAB Normal [facility] Comment on above: Order Comment: Speci men Type: TISSUE SPECIMEN Ordering Facility: [facility] Address: [address] [place] [address] Result Comment: Diag nostic interpretation performed at: [facility], [address] [place] [address] CLIA# [id number] Is Support Analyst: Jesús Alexandre MD Performed By: #### S #### [facility] CLIA [id number] [address] [place] [address] GROSS DESCRIPTION Normal [facility] Comment on above: Order Comment: Speci men Type: TISSUE SPECIMEN Ordering Facility: [facility] Address: [address] [place] [address] Result Comment: A. C olon, Cecum, Polyp Received in formalin is a segment of duke polypoid tissue measuring 1.5 x 0.6 x 0.2 cm. No stalk is present. The line of resection is noted. The specimen is bisected and totally submitted in cassette A1. Also received in the same container are multiple pieces of duke, soft tissue aggregating to 2.0 x 0.4 x 0.2 cm. Totally submitted in cassettes A2-A3. Gross examination performed at [facility], [address] [place] [address] FFS 06/09/2024 10:01 PM B. Colon, Transverse, Polyp Received in formalin are multiple pieces of duke, soft tissue aggregating to 0.8 x 0.5 x 0.2 cm. Totally submitted in one cassette. [facility] June 09, 2024 7:28 PM Gross examination performed at [facility], [address] [place] [address] Performed By: #### S #### [facility] CLIA [id number] [address] [place] [address] CNPKaren 06-04-2024 [facility]N Telephone [facility] WATSON RODRIGUEZ ([id number]) 1960 M [facility] Date Time Provider Department 06/04/24 BREANNE WHITTINGTON [facility] During your visit today, we recorded the following information about you: Calixto Matta, NARCISA 06/04/2024 9:35 AM Signed Pt calling in with question for Dr. Whittington. Pt states had some labwork done recently and states his AST was elevated. Pt is getting it repeated when he returns from [place] at the beginning of July. Pt states he is concerned about the elevated AST. Reinforced Dr. Whittington's msg that one liver enzyme is mildly up. Likely ok but to be on the safe side, recheck labs in 2 weeks (pt will be in [place] at that time-Dr. Whittington okayed waiting july). And that the elevation could also be from recent viral infection. Pt ALT within normal limits. Pt reassured. Pt's question is should he get his flu shot prior to leaving for [place] so within the next week or so? And is it any problem to get it with the elevated AST? Okay to msg pt back via [email or web address]. Breanne Whittington MD 06/04/2024 9:43 AM Signed No. The numbers are only very minimally elevated and nothing I would worry about at this point. Calixto Matta RN 06/04/2024 10:05 AM Signed [email or web address] msg sent back to pt per his request with Dr. Whittington's response. Allergies As of Date: 06/04/2024 Noted Allergy Reaction ATORVASTATIN 03/30/2014 17 - Myalgia 14 - Other: See Comments Date Reviewed: 04/18/2024 Reviewed by: Fouzia Amado APRN.[employer] - Fully Assessed Reason for Visit: Patient Question [2860] Cmt: Re: flu shot and elevated AST Prescriptions as of 06/04/2024 - clonazePAM orally disintegrating (KLONOPIN WAFER) 1 mg disintegrating tablet Dissolve 1 tablet under the tongue three times a day as needed for up to 30 days. - levETIRAcetam (KEPPRA) 500 mg tablet Take 2 tablets by mouth two times a day. - CPAP/BIPAP/OTHER Type .CPAPSettings into a note to see current settings/supplies/DME information. - sildenafil (VIAGRA) 100 mg tablet Take 1 pill 1 hour prior to sexual activity on empty stomach - CPAP/BIPAP/OTHER MASK REFITTING. Continue Auto CPAP with current settings of 5-20 cm H2O. Lifetime supplies for Auto CPAP, including patient preferred mask, head gear, heated tubing, humidity, filters, chin strap. Dx: Obstructive Sleep Apnea G47.33 DME: [employer] [phone] ?fax# [phone] Fax download reports to [phone]. - dexAMETHasone (DECADRON) 2 mg tablet 2 mg the day prior to the flight, the day of the flight and the day after the flight. - CPAP Initiate Auto PAP @ 5-20 cm of water with humidification. Mask (per patient preference) optional chin strap (if indicated) , filters, tubing, humidifier and lifetime supplies. - rosuvastatin (CRESTOR) 40 mg tablet Take 40 mg by mouth. - Multivitamin capsule Take 1 capsule by mouth once daily. - aspirin(ADULT LOW DOSE ASPIRIN 81 MG TAB, DELAYED RELEASE) Take one(1) tablet daily. Problem List As Of Date 06/04/2024 Noted Resolved Benign Neoplasm of Colon [D12.6] 10/29/2009 Special Screening for Malignant Neoplasms, [place]*10/29/2009 Personal history of colonic polyps [Z86.0100] 11/23/2016 Inflamed external hemorrhoid [K64.4] 11/23/2016 Meningioma (HCC) [D32.9] 08/02/2020 Localized edema [R60.0] 10/22/2020 Brain edema (HCC) [G93.6] 11/10/2020 Coronary artery disease involving benton lopez*12/17/2020 Nonrheumatic aortic valve stenosis [I35.0] 12/17/2020 Mixed hyperlipidemia [E78.2] 12/17/2020 Recurrent seizures (HCC) [G40.909] 01/08/2021 01/12/2021 Renal atrophy, left [N26.1] 01/27/2021 CKD (chronic kidney disease) stage 1, GFR 90 ml*01/27/2021 MELL on CPAP [G47.33] 01/31/2021 Tinnitus, right ear [H93.11] 02/20/2021 Sensorineural hearing loss, bilateral [H90.3] 02/20/2021 Seizure (HCC) [R56.9] 05/18/2021 Focal motor seizure (HCC) [G40.109] 11/13/2020 History of myocardial infarction [I25.2] 01/15/2013 Hypokalemia [E87.6] 05/30/2022 Intracranial meningioma (HCC) [D32.0] 05/30/2022 Light sensitivity [R68.89] 08/21/2020 Mitral valve prolapse [I34.1] 01/20/2013 Myocardial ischemia [I25.9] 01/20/2013 Other specified disorders of the skin and subcu*01/23/2022 Presence of coronary angioplasty implant and gr*02/08/2022 Radiological procedure and radiotherapy as the *01/23/2022 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 Weakness [R53.1] 01/23/2022 Irregular heart rhythm [I49.9] 04/17/2023 Diagnosed: 04/25/2023 Lipoma [D17.9] 04/25/2023 Diagnosed: 04/25/2023 Hammertoe of right foot [M20.41] 05/04/2023 Foot pain, right [M79.671] 05/04/2023 Numbness [R20.0] 05/04/2023 Bursitis of right foot [M77.51] 05/04/2023 Neuroma [D36.10] 05/04/2023 Glioblastoma (HCC) [C71.9] 09/13/2023 Encounter Status:Closed by CALIXTO MATTA on 06/04/24 [facility] [place] CNPNon 05-31-2024 CNPN Telephone ([facility]) WATSON RODRIGUEZ ([id number]) 1960 DNS Date Time Provider Department 05/31/24 [facility] During your visit today, we recorded the following information about you: Breanne Whittington MD 05/31/2024 12:12 PM Signed Labs are ok. One liver enzyme is mildly up. Likely ok but to be on the safe side. Recheck labs in two weeks. Can be up even from recent viral infection etc. Kassandra Gamez MA 06/02/2024 10:07 AM Signed Called and left message on patients voicemail to return call to the office and ask to speak with a triage nurse. TREVOR Woods Beth, LPN 06/02/2024 1:49 PM Signed Patient returned call and went over results, notes from Dr Whittington with understanding. Patient said he will be in [facility] from 06/11/2024 to first part of July. Asking if that would be alright to do labs then, or get them done at the end of this week? He is having Colonoscopy done on 06/09/2024. Please advise Breanne Whittington MD 06/02/2024 1:50 PM Signed Ok to wait Graciela Fountain LPN 06/02/2024 2:06 PM Signed PATIENT NOTIFIED OF SAME. Allergies As of Date: 05/31/2024 Noted Allergy Reaction ATORVASTATIN 03/30/2014 17 - Myalgia 14 - Other: See Comments Date Reviewed: 04/18/2024 Reviewed by: Fouzia Amado APRN.[employer] - Fully Assessed Reason for Visit: Results [95] Primary Visit Diagnosis:Elevated liver enzymes [R74.8] Order(s):HEPATIC FUNCTION PNL [SQHFP] Order #: [id number] FUTURE HEP ACUTE PANEL/RNA [SQHACRNA] Order #: [id number] FUTURE Prescriptions as of 06/02/2024 - clonazePAM orally disintegrating (KLONOPIN WAFER) 1 mg disintegrating tablet Dissolve 1 tablet under the tongue three times a day as needed for up to 30 days. - levETIRAcetam (KEPPRA) 500 mg tablet Take 2 tablets by mouth two times a day. - CPAP/BIPAP/OTHER Type .CPAPSettings into a note to see current settings/supplies/DME information. - sildenafil (VIAGRA) 100 mg tablet Take 1 pill 1 hour prior to sexual activity on empty stomach - CPAP/BIPAP/OTHER MASK REFITTING. Continue Auto CPAP with current settings of 5-20 cm H2O. Lifetime supplies for Auto CPAP, including patient preferred mask, head gear, heated tubing, humidity, filters, chin strap. Dx: Obstructive Sleep Apnea G47.33 DME: [facility] [phone] ?fax# [phone] Fax download reports to [phone]. - dexAMETHasone (DECADRON) 2 mg tablet 2 mg the day prior to the flight, the day of the flight and the day after the flight. - CPAP Initiate Auto PAP @ 5-20 cm of water with humidification. Mask (per patient preference) optional chin strap (if indicated) , filters, tubing, humidifier and lifetime supplies. - rosuvastatin (CRESTOR) 40 mg tablet Take 40 mg by mouth. - Multivitamin capsule Take 1 capsule by mouth once daily. - aspirin(ADULT LOW DOSE ASPIRIN 81 MG TAB, DELAYED RELEASE) Take one(1) tablet daily. Problem List As Of Date 05/31/2024 Noted Resolved Benign Neoplasm of Colon [D12.6] 10/29/2009 Special Screening for Malignant Neoplasms, [place]*10/29/2009 Personal history of colonic polyps [Z86.0100] 11/23/2016 Inflamed external hemorrhoid [K64.4] 11/23/2016 Meningioma (HCC) [D32.9] 08/02/2020 Localized edema [R60.0] 10/22/2020 Brain edema (HCC) [G93.6] 11/10/2020 Coronary artery disease involving benton lopez*12/17/2020 Nonrheumatic aortic valve stenosis [I35.0] 12/17/2020 Mixed hyperlipidemia [E78.2] 12/17/2020 Recurrent seizures (HCC) [G40.909] 01/08/2021 01/12/2021 Renal atrophy, left [N26.1] 01/27/2021 CKD (chronic kidney disease) stage 1, GFR 90 ml*01/27/2021 MELL on CPAP [G47.33] 01/31/2021 Tinnitus, right ear [H93.11] 02/20/2021 Sensorineural hearing loss, bilateral [H90.3] 02/20/2021 Seizure (HCC) [R56.9] 05/18/2021 Focal motor seizure (HCC) [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] 11/13/2020 History of myocardial infarction [I25.2] 01/15/2013 Hypokalemia [E87.6] 05/30/2022 Intracranial meningioma (HCC) [D32.0] 05/30/2022 Light sensitivity [R68.89] 08/21/2020 Mitral valve prolapse [I34.1] 01/20/2013 Myocardial ischemia [I25.9] 01/20/2013 Other specified disorders of the skin and subcu*01/23/2022 Presence of coronary angioplasty implant and gr*02/08/2022 Radiological procedure and radiotherapy as the *01/23/2022 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 CBC W Auto Differential pane l (Bld)on 05-30-2024 Basophils (Bld) [#/Vol] 10*3/uL Normal <0.[address] [facility] Comment on above: Order Comment: Speci men Type: BLOOD SPECIMEN Ordering Facility: [facility] Address: [address] [place] [address] Performed By: #### 3 0471-7 #### [facility] CLIA [id number] [address] [place] [address] [place] Basophils/100 WBC (Bld) 0.3 % Normal [facility] Comment on above: Order Comment: Speci men Type: BLOOD SPECIMEN Ordering Facility: [facility] Address: [address] [place] [address] Performed By: #### 3 0471-7 #### [facility] CLIA [id number] [address] [place] [address] [place] Differential cell count method Nom (Bld) Auto Normal [facility] Comment on above: Order Comment: Speci men Type: BLOOD SPECIMEN Ordering Facility: [facility] Address: [address] [place] [address] Performed By: #### 3 0471-7 #### [facility] CLIA [id number] [address] [place] [address] [place] Eosinophils (Bld) [#/Vol] 0.06 10*3/uL Normal <0.[address] [facility] Comment on above: Order Comment: Speci men Type: BLOOD SPECIMEN Ordering Facility: [facility] Address: [address] [place] [address] Performed By: #### 3 0471-7 #### [facility] CLIA [id number] [address] [place] [address] [place] Eosinophils/100 WBC (Bld) 1.6 % Normal [facility] Comment on above: Order Comment: Speci men Type: BLOOD SPECIMEN Ordering Facility: [facility] Address: [address] [place] [address] Performed By: #### 3 0471-7 #### [facility] CLIA [id number] [address] [place] [address] [place] Erythrocyte distribution width (RBC) [Ratio] 11.8 % Normal 11.5-15.[address] [facility] Comment on above: Order Comment: Speci men Type: BLOOD SPECIMEN Ordering Facility: [facility] Address: [address] [place] [address] Performed By: #### 3 0471-7 #### [facility] CLIA [id number] [address] [place] [address] [place] Hematocrit (Bld) [Volume fraction] 45.6 % Normal 39.0-51.[address] [facility] Comment on above: Order Comment: Speci men Type: BLOOD SPECIMEN Ordering Facility: [facility] Address: [address] [place] [address] Performed By: #### 3 0471-7 #### [facility] CLIA [id number] [address] [place] [address] [place] Hemoglobin (Bld) [Mass/Vol] 16.1 g/dL Normal 13.0-17.[address] [facility] Comment on above: Order Comment: Speci men Type: BLOOD SPECIMEN Ordering Facility: [facility] Address: [address] [place] [address] Performed By: #### 3 0471-7 #### [facility] CLIA [id number] [address] [place] [address] [place] Immature granulocytes (Bld) [#/Vol] 10*3/uL Normal <0.[address] [facility] Comment on above: Order Comment: Speci men Type: BLOOD SPECIMEN Ordering Facility: [facility] Address: [address] [place] [address] Performed By: #### 3 0471-7 #### [facility] CLIA [id number] [address] [place] [address] [place] Immature granulocytes/100 WBC (Bld) 0.5 % Normal [facility] Comment on above: Order Comment: Speci men Type: BLOOD SPECIMEN Ordering Facility: [facility] Address: [address] [place] [address] Performed By: #### 3 0471-7 #### [facility] CLIA [id number] [address] [place] [address] [place] Lymphocytes (Bld) [#/Vol] 1.00 10*3/uL Normal 1.00-4.[address] [facility] Comment on above: Order Comment: Speci men Type: BLOOD SPECIMEN Ordering Facility: [facility] Address: [address] [place] [address] Performed By: #### 3 0471-7 #### [facility] CLIA [id number] [address] [place] [address] [place] Lymphocytes/100 WBC (Bld) 26.5 % Normal [facility] Comment on above: Order Comment: Speci men Type: BLOOD SPECIMEN Ordering Facility: [facility] Address: [address] [place] [address] Performed By: #### 3 0471-7 #### [facility] CLIA [id number] [address] [place] [address] [place] MCH (RBC) [Entitic mass] 31.5 pg Normal 26.0-34.[address] [facility] Comment on above: Order Comment: Speci men Type: BLOOD SPECIMEN Ordering Facility: [facility] Address: [address] [place] [address] Performed By: #### 3 0471-7 #### [facility] CLIA [id number] [address] [place] [address] [place] MCHC (RBC) [Mass/Vol] 35.3 g/dL Normal 30.5-36.[address] [facility] Comment on above: Order Comment: Speci men Type: BLOOD SPECIMEN Ordering Facility: [facility] Address: [address] [place] [address] Performed By: #### 3 0471-7 #### [facility] CLIA [id number] [address] [place] [address] [place] MCV (RBC) [Entitic vol] 89.2 fL Normal 80.0-100.[address] [facility] Comment on above: Order Comment: Speci men Type: BLOOD SPECIMEN Ordering Facility: [facility] Address: [address] [place] [address] Performed By: #### 3 0471-7 #### [facility] CLIA [id number] [address] [place] [address] [place] Monocytes (Bld) [#/Vol] 0.37 10*3/uL Normal <0.[address] [facility] Comment on above: Order Comment: Speci men Type: BLOOD SPECIMEN Ordering Facility: [facility] Address: [address] [place] [address] Performed By: #### 3 0471-7 #### [facility] CLIA [id number] [address] [place] [address] [place] Monocytes/100 WBC (Bld) 9.8 % Normal [facility] Comment on above: Order Comment: Speci men Type: BLOOD SPECIMEN Ordering Facility: [facility] Address: [address] [place] [address] Performed By: #### 3 0471-7 #### [facility] CLIA [id number] [address] [place] [address] [place] Neutrophils (Bld) [#/Vol] 2.32 10*3/uL Normal 1.45-7.[address] [facility] Comment on above: Order Comment: Speci men Type: BLOOD SPECIMEN Ordering Facility: [facility] Address: [address] [place] [address] Performed By: #### 3 0471-7 #### [facility] CLIA [id number] [address] [place] [address] [place] Neutrophils/100 WBC (Bld) 61.3 % Normal [facility] Comment on above: Order Comment: Speci men Type: BLOOD SPECIMEN Ordering Facility: [facility] Address: [address] [place] [address] Performed By: #### 3 0471-7 #### [facility] CLIA [id number] [address] [place] [address] [place] Nucleated RBC (Bld) [#/Vol] 10*3/uL Normal <0.[address] [facility] Comment on above: Order Comment: Speci men Type: BLOOD SPECIMEN Ordering Facility: [facility] Address: [address] [place] [address] Performed By: #### 3 0471-7 #### [facility] CLIA [id number] [address] [place] [address] [place] Nucleated RBC/100 WBC (Bld) [Ratio] 0.0 /100 WBC Normal [facility] Comment on above: Order Comment: Speci men Type: BLOOD SPECIMEN Ordering Facility: [facility] Address: [address] [place] [address] Performed By: #### 3 0471-7 #### [facility] CLIA [id number] [address] [place] [address] [place] Platelet mean volume (Bld) [Entitic vol] 8.6 fL Low 9.0-12.[address] [facility] Comment on above: Order Comment: Speci men Type: BLOOD SPECIMEN Ordering Facility: [facility] Address: [address] [place] [address] Performed By: #### 3 0471-7 #### [facility] CLIA [id number] [address] [place] [address] [place] Platelets (Bld) [#/Vol] 153 10*3/uL Normal 150-[address] [facility] Comment on above: Order Comment: Speci men Type: BLOOD SPECIMEN Ordering Facility: [facility] Address: [address] [place] [address] Performed By: #### 3 0471-7 #### [facility] CLIA [id number] [address] [place] [address] [place] RBC (Bld) [#/Vol] 5.11 10*6/uL Normal 4.20-6.00 [facility] Comment on above: Order Comment: Speci men Type: BLOOD SPECIMEN Ordering Facility: [facility] Address: [address] [place] [address] Performed By: #### 3 0471-7 #### [facility] CLIA [id number] [address] [place] [address] [place] WBC (Bld) [#/Vol] 3.78 10*3/uL Normal 3.70-11.00 [facility] Comment on above: Order Comment: Speci men Type: BLOOD SPECIMEN Ordering Facility: [facility] Address: [address] [place] [address] Performed By: #### 3 0471-7 #### [facility] CLIA [id number] [address] [place] [address] [place] Comprehensive metabolic 2000 panelon 05-30-2024 Albumin [Mass/Vol] 4.3 g/dL Normal 3.9-4.9 [facility] Comment on above: Order Comment: Speci men Type: BLOOD SPECIMENOrdering Facility: [facility] Address: [address] [place] [address] Performed By: #### 2 4323-8 ####[facility] [id number] [place] [address] [place] ALP [Catalytic activity/Vol] 75 U/L Normal 38-[address] [facility] Comment on above: Order Comment: Speci men Type: BLOOD SPECIMENOrdering Facility: [facility] Address: [address] [place] [address] Performed By: #### 2 4323-8 ####[facility] [id number] [place] [address] [place] ALT [Catalytic activity/Vol] 29 U/L Normal 10-[address] [facility] Comment on above: Order Comment: Speci men Type: BLOOD SPECIMENOrdering Facility: [facility] Address: [address] [place] [address] Performed By: #### 2 4323-8 ####[facility] [id number] [place] [address] [place] Anion gap [Moles/Vol] 10 mmol/L Normal 8-[address] [facility] Comment on above: Order Comment: Speci men Type: BLOOD SPECIMENOrdering Facility: [facility] Address: [address] [place] [address] Performed By: #### 2 4323-8 ####[facility] [id number] [place] [address] [place] AST [Catalytic activity/Vol] 59 U/L High 14-[address] [facility] Comment on above: Order Comment: Speci men Type: BLOOD SPECIMENOrdering Facility: [facility] Address: [address] [place] [address] Performed By: #### 2 4323-8 ####[facility] MILLTOWNCLIA [id number] [place] [address] [place] Bilirubin [Mass/Vol] 0.6 mg/dL Normal 0.2-1.[address] [facility] Comment on above: Order Comment: Speci men Type: BLOOD SPECIMENOrdering Facility: [facility] Address: [address] [place] [address] Performed By: #### 2 4323-8 ####[facility]CLIA [id number] [place] [address] [place] Calcium [Mass/Vol] 9.5 mg/dL Normal 8.5-10.2 [facility] Comment on above: Order Comment: Speci men Type: BLOOD SPECIMENOrdering Facility: [facility] Address: [address] [place] [address] Performed By: #### 2 4323-8 ####[facility] SYSTEM[facility] [id number] [place] [address] [place] Chloride [Moles/Vol] 102 mmol/L Normal 98-[address] [facility] Comment on above: Order Comment: Speci men Type: BLOOD SPECIMENOrdering Facility: [facility] Address: [address] [place] [address] Performed By: #### 2 4323-8 ####[facility] MILLWNCLIA [id number] [place] [address] [place] CO2 [Moles/Vol] 27 mmol/L Normal 22-[address] [facility] Comment on above: Order Comment: Speci men Type: BLOOD SPECIMENOrdering Facility: [facility] Address: [address] [place] [address] Performed By: #### 2 4323-8 ####[facility]ITALWNCLIA [id number] [place] [address] [place] Creatinine [Mass/Vol] 1.04 mg/dL Normal 0.73-1.[address] [facility] Comment on above: Order Comment: Vitaliy diaz Type: BLOOD SPECIMENOrdering Facility: [facility] Address: [address] [place] [address] Performed By: #### 2 4323-8 ####[facility] [id number] [address] [facility] Creatinine and Glomerular filtration rate.predicted panel (S/P/Bld) 79 mL/min/1.73m??? Normal >=[address] [facility] Comment on above: Order Comment: Vitaliy diaz Type: BLOOD SPECIMENOrdering Facility: [facility] Address: [address] [place] [address] Result Comment: Kelli mated Glomerular Filtration Rate (eGFR) is calculated using the 2020 CKD-EPI creatinine equation. This equation utilizes serum creatinine, sex, and age as parameters. The creatinine assay has traceable calibration to isotope dilution-mass spectrometry. Refer to KDIGO guidelines for clinical interpretation. In patients with unstable renal function, e.g. those with acute kidney injury, the eGFR may not accurately reflect actual GFR. Performed By: #### 2 4323-8 ####[facility] [id number] [place] [address] [place] Glucose [Mass/Vol] 93 mg/dL Normal 74-99 [facility] Comment on above: Order Comment: Vitaliy diaz Type: BLOOD SPECIMENOrdering Facility: [facility] Address: [address] [place] [address] Result Comment: The [place] Diabetes Association (ADA) provides guidance for cutoff values for fasting glucose and random glucose. The ADA defines fasting as no caloric intake for at least 8 hours. Fasting plasma glucose results between 100 to 125 mg/dL indicate increased risk for diabetes (prediabetes). Fasting plasma glucose results greater than or equal to 126 mg/dL meet the criteria for diagnosis of diabetes. In the absence of unequivocal hyperglycemia, results should be confirmed by repeat testing. In a patient with classic symptoms of hyperglycemia or hyperglycemic crisis, random plasma glucose results greater than or equal to 200 mg/dL meet the criteria for diagnosis of diabetes. Reference: Standards of Medical Care in Diabetes 2016, [place] Diabetes Association. Diabetes Care. 2016.39(Suppl 1). Performed By: #### 2 4323-8 ####[facility] [id number] [place] [address] [place] Potassium [Moles/Vol] 4.2 mmol/L Normal 3.7-5.[address] [facility] Comment on above: Order Comment: Speci men Type: BLOOD SPECIMENOrdering Facility: [facility] Address: [address] [place] [address] Performed By: #### 2 4323-8 ####[facility] [id number] [place] [address] [place] Protein [Mass/Vol] 6.7 g/dL Normal 6.3-8.0 [facility] Comment on above: Order Comment: Speci men Type: BLOOD SPECIMENOrdering Facility: [facility] Address: [address] [place] [address] Performed By: #### 2 4323-8 ####[facility] [id number] [place] [address] [place] Sodium [Moles/Vol] 139 mmol/L Normal 136-144 [facility] Comment on above: Order Comment: Speci men Type: BLOOD SPECIMENOrdering Facility: [facility] Address: [address] [place], [place] [address] Performed By: #### 2 4323-8 ####[facility] [id number] [place] [address] [place] Urea nitrogen [Mass/Vol] 20 mg/dL Normal 9-[address] [facility] Comment on above: Order Comment: Speci men Type: BLOOD SPECIMENOrdering Facility: [facility] Address: [address] [place] [address] Performed By: #### 2 4323-8 ####[facility] [id number] [place] [address] [place] [facility] [place] Lipid 1996 panelon 5 Cholesterol [Mass/Vol] 140 mg/dL Normal <[address] [facility] Comment on above: Order Comment: Speci men Type: BLOOD SPECIMENOrdering Facility: [facility] Address: [address] [place] [address] Result Comment: <200 mg/dL, Desirable 200-239 mg/dL, Borderline high >239 mg/dL, High Performed By: #### 2 4331-1 ####[facility] LABCLIA [id number] [address] [id number] [address] [place] Cholesterol in HDL [Mass/Vol] 45 mg/dL Normal >[address] [facility] Comment on above: Order Comment: Vitaliy men Type: BLOOD SPECIMENOrdering Facility: [facility] Address: [address] [place] [address] Result Comment: 40-5 9 mg/dL, Acceptable >59 mg/dL, High: Negative risk factor for coronary heart disease <40 mg/dL, Low: Positive risk factor for coronary heart disease Performed By: #### 2 4331-1 ####[facility] LABCLIA [id number] [address] [id number] [address] [place] Cholesterol in LDL [Mass/Vol] 81 mg/dL Normal <[address] [facility] Comment on above: Order Comment: Speci men Type: BLOOD SPECIMENOrdering Facility: [facility] Address: [address] [place] [address] Result Comment: <100 mg/dL, Optimal 100-129 mg/dL, Near optimal/above optimal 130-159 mg/dL, Borderline high 160-189 mg/dL, High >189 mg/dL, Very high Secondary prevention optimal LDL Cholesterol levels are recommended to be < 70 mg/dL Performed By: #### 2 4331-1 ####[facility] LABCLIA [id number] [address] [id number] [place] [address] [place] [facility] Cholesterol in LDL/Cholesterol in HDL [Mass ratio] 1.80 {ratio} Normal <2.[address] [facility] Comment on above: Order Comment: Speci men Type: BLOOD SPECIMENOrdering Facility: [facility] Address: [address] [place] [address] Result Comment: Refe rajan: 1. National Cholesterol Education Program ATP III Guideline At-A-Glance Quick Desk Reference: National Heart, Lung, and Blood Start. National Institutes of Health. 2001: NIH Publication No. 01-3305. 2. An International Atherosclerosis Society position paper: global recommendations for the management of dyslipidemia: executive summary, Atherosclerosis. 2014: 232(2):410-413. Performed By: #### 2 4331-1 ####[facility] LABCLIA [id number] [address] [id number] [place] [address] [place] Cholesterol in VLDL [Mass/Vol] 14 mg/dL Normal <[address] [facility] Comment on above: Order Comment: Speci men Type: BLOOD SPECIMENOrdering Facility: [facility] Address: [address] [place] [address] Performed By: #### 2 4331-1 ####[facility] LABCLIA [id number] [address] [id number] [place] [address] [place] Cholesterol non HDL [Mass/Vol] 95 mg/dL Normal <[address] [facility] Comment on above: Order Comment: Speci men Type: BLOOD SPECIMENOrdering Facility: [facility] Address: [address] [address] [place], [place] [id number] Result Comment: <130 mg/dL, Optimal 130-159 mg/dL, Near optimal/above optimal 160-189 mg/dL, Borderline high 190-219 mg/dL, High >219 mg/dL, Very high Secondary prevention optimal non HDL Cholesterol levels are recommended to be <100 mg/dL Performed By: #### 2 4331-1 ####[facility] LABCLIA [id number] [id number] [place] [address] [place] Cholesterol.total/C holesterol in HDL [Mass ratio] 3.11 {ratio} Normal <5.[address] [facility] Comment on above: Order Comment: Speci men Type: BLOOD SPECIMENOrdering Facility: [facility] Address: [address] [place], [place] [address] Performed By: #### 2 4331-1 ####[facility] LABCLIA [id number] [place] [id number] [facility] [id number] [place] [address] [place] FASTING TIME 15 hrs Normal [facility] Comment on above: Order Comment: Speci men Type: BLOOD SPECIMENOrdering Facility: [facility] Address: [address] [place], [place] [address] Performed By: #### 2 4331-1 ####[facility] LABCLIA [id number] [address] [address] [facility] [id number] [place] [address] [place] Triglyceride [Mass/Vol] 70 mg/dL Normal <[address] [facility] Comment on above: Order Comment: Speci men Type: BLOOD SPECIMENOrdering Facility: [facility] Address: [address] [place] [address] Result Comment: <150 mg/dL, Normal 150-199 mg/dL, Borderline high 200-499 mg/dL, High >499 mg/dL, Very high Performed By: #### 2 4331-1 ####[facility] LABCLIA [id number] [address] STATES OF [facility] [id number] [place] [address] [place] PSA/PROSTATE SPECIFIC ANTIGE N SCREENINGon 05-30-2024 Prostate specific Ag [Mass/Vol] 1.74 ng/mL Normal <2.[address] [facility] Comment on above: Order Comment: Speci men Type: BLOOD SPECIMEN [facility] Address: [address] [place] [address] Result Comment: Tota l PSA test methodology used is the Electrochemiluminescence Immunoassay by [employer]. Total PSA values by differing methodologies cannot be interchanged. Performed By: #### 3 0471-7 #### [facility] LAB CLIA [id number] [address] [place] [address] OF [place] levETIRAcetam SerPl-mCncon 0 05-30-2024 levETIRAcetam [Mass/Vol] 15.4 ug/mL Normal 12.0-46.[address] [facility] Comment on above: Order Comment: Speci men Type: BLOOD SPECIMENOrdering Facility: [facility] Address: [address] [place] [address] Result Comment: This test is not suitable for patients receiving treatment with the drug brivaracetam (Briviact). The drug causes an interference that may lead to falsely elevated levetiracetam results. Reference ranges and high/low indicator flags are provided as general guidelines only. The treating physician must determine appropriate target levels/dosing based on the specific clinical situation. This test was developed, and its performance characteristics determined by the [facility] Department of Pathology and Laboratory Medicine. It has not been cleared or approved by the FDA. The [facility] Department of Pathology and Laboratory Medicine is regulated under CLIA as qualified to perform high-complexity testing. This test is used for clinical purposes. It should not be regarded as investigational or for research. Performed By: #### 3 0471-7 ####[facility] LABCLIA [id number] [facility] [id number] [address] [place] [facility] Echo Completeon 05-19-2024 Echo Complete [facility] [address] [place] [address] Echo Complete 05/19/24 1311 MR#: [id number] Acct: [id number] Name: WATSON RODRIGUEZ Rep #: [id number] : 1960 64 From: Gary Shepherd MD Attending Dr: Dr. Hoang Sauceda MD Status: [facility] CLI Ordering Dr: Hoang Sauceda MD Date: 05/19/24 Location: [facility] Sex: M C Admitted: Version 2 Reason For Study: Aortic stenosis Procedure This was a 2D Doppler, Color Flow transthoracic echocardiogram. Exam performed in department. Left Ventricle Normal LV size. Left ventricular systolic function is normal. The left ventricular ejection fraction is 60 %. No regional wall motion abnormalities noted. Right Ventricle Normal RV size. Normal systolic function. Atria Normal left atrium. Normal right atrium. Mitral Valve Normal mitral valve. Tricuspid Valve Normal tricuspid valve. Mild (1+) tricuspid valve insufficiency. Pulmonary artery systolic pressure is 28 mmHg. Aortic Valve Trisinus/trileaflet aortic valve. Mild focal aortic valve calcification. Peak aortic valve gradient 31 mmHg. Mean aortic valve gradient 17 mmHg. Mild to moderate aortic stenosis. Pulmonic Valve Normal pulmonic valve. Great Vessels Normal aortic root. The pulmonary artery is normal size. Inferior vena cava collapse with respiration. Pericardium/Pleural No pericardial effusion. MMode/2D Measurements Calculations LVIDd: 4.7 cm IVSd: 1.2 cm LVOT diam: 2.1 cm LVIDs: 3.0 cm LVPWd: 1.2 cm LVOT area: 3.3 cm2 RVDd: 3.6 cm FS: 36.7 % asc Aorta Diam: 4.4 cm LAV(MOD-bp): 58.5 ml LVAd ap4: 30.4 cm2 LAV(MOD-bp) Indexed: 28.4 ml/m2 LVLd ap4: 8.7 cm LAV(MOD-sp2): 67.6 ml EDV(MOD-sp4): 90.9 ml LAV(MOD-sp4): 47.1 ml EDV(sp4-el): 90.2 ml LVAs ap4: 16.1 cm2 LVLs ap4: 7.2 cm ESV(MOD-sp4): 31.1 ml ESV(sp4-el): 30.6 ml EF(MOD-sp4): 65.8 % EF(sp4-el): 66.0 % LVAd ap2: 28.7 cm2 SV(MOD-sp4): 59.8 ml SV(MOD-sp2): 50.2 ml LVLd ap2: 8.8 cm SI(MOD-sp4): 29.0 ml/m2 SI(MOD-sp2): 24.4 ml/m2 EDV(MOD-sp2): 79.9 ml EDV(sp2-el): 79.2 ml LVAs ap2: 15.8 cm2 LVLs ap2: 7.7 cm ESV(MOD-sp2): 29.7 ml ESV(sp2-el): 27.5 ml EF(MOD-sp2): 62.9 % SV(sp4-el): 59.5 ml LA dimension(2D): 3.6 cm LA A4 area: 17.7 cm2 RA A4 area: 17.6 cm2 TAPSE: 2.7 cm Time Measurements MV dec time: 0.20 sec Doppler Measurements Calculations MV E max jacky: 72.8 cm/sec Lat Peak E' Jacky: 8.0 cm/sec Med Peak E' Jacky: 8.5 cm/sec MV A max jacky: 54.5 cm/sec E/E' lat: 9.1 E/E' med: 8.6 MV E/A: 1.3 Ao V2 max: 278.4 cm/sec LV V1 max: 123.9 cm/sec MV dec slope: 356.4 cm/sec2 Ao max P.3 mmHg LV V1 max P.2 mmHg Ao V2 mean: 191.0 cm/sec LV V1 mean P.1 mmHg Ao mean P.5 mmHg LV V1 mean: 81.8 cm/sec Ao V2 VTI: 63.2 cm LV V1 VTI: 27.3 cm AV (velocity ratio): 0.43 SAMMIE(I,D): 1.4 cm2 SAMMIE(V,D): 1.5 cm2 SV(LVOT): 91.0 ml PA V2 max: 84.0 cm/sec TR max jacky: 245.2 cm/sec TR max P.1 mmHg ECHO/Echo Complete Interpretation Summary Normal LV size. Left ventricular systolic function is normal. The left ventricular ejection fraction is 60 %. Mean aortic valve gradient 17 mmHg. Mild to moderate aortic stenosis. Prior to the previous the above gradients are unchanged. Ordering Physician: Hoang Sauceda Referring Physician: Breanne Whittington Performed By: Maria Ines Floyd RDCS 05/19/24 1611 Date Gary Shepherd MD CC: Dr. Hoang Sauceda MD; Dr. 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 Saw Dr. Devlin Next MRI in August Meningioma stable No Seizures They have decreased his keppra dose. Had a brother with prostate cancer. PSA was last checked 05/03/23. Does get up frequently at night. Bp is tighter today. Is asymptomatic. Will have his recheck one and my chart it to me. No dizziness or lightheaded. Finishing up Amoxil from seeing Sonia 04/18/24 cough is gone but still with some drainage. Would like to have ears checked while here today. No fever or chills. No sore throat. Following with cardiology saw Dr Sauceda with [facility] yesterday. Ordered repeat echo and to stay on same medications. If echo remains same will follow up with him in 1 year. Consult is scanned into chart. Using CPAP nightly and benefits from use. Was treated for tick bite 03/31/24 took course of Doxy as preventative. Wondering how long should take for area to heal completely? No bullseye rash. Tinnitus still constant. Pitch remains the same but volume has increased. Knows not much to be done for it. Has seen speciality for it and tried different things. Getting colonoscopy next month. No bowel changes. No issues with meds. No chest pain or shortness of breath. MEDICATIONS: Current Outpatient Medications Medication Sig amoxicillin-clavulanate potassium (AUGMENTIN) 875-125 mg per tablet Take 1 tablet by mouth two times a day for 10 days. levETIRAcetam (KEPPRA) 500 mg tablet Take 2 tablets by mouth two times a day. CPAP/BIPAP/OTHER Type .CPAPSettings into a note to see current settings/supplies/DME information. clonazePAM orally disintegrating (KLONOPIN WAFER) 1 mg disintegrating tablet DISSOLVE 1 TABLET IN MOUTH THREE TIMES DAILY NEEDED (SEIZURES) FOR UP TO 30 DAYS sildenafil (VIAGRA) 100 mg tablet Take 1 pill 1 hour prior to sexual activity on empty stomach CPAP/BIPAP/OTHER MASK REFITTING. Continue Auto CPAP with current settings of 5-20 cm H2O. Lifetime supplies for Auto CPAP, including patient preferred mask, head gear, heated tubing, humidity, filters, chin strap. Dx: Obstructive Sleep Apnea G47.33 DME: [facility] kahn [phone] fax# [phone] Fax download reports to [phone]. dexAMETHasone (DECADRON) 2 mg tablet 2 mg the day prior to the flight, the day of the flight and the day after the flight. CPAP Initiate Auto PAP @ 5-20 cm of water with humidification. Mask (per patient preference) optional chin strap (if indicated) , filters, tubing, humidifier and lifetime supplies. rosuvastatin (CRESTOR) 40 mg tablet Take 40 mg by mouth. Multivitamin capsule Take 1 capsule by mouth once daily. aspirin(ADULT LOW DOSE ASPIRIN 81 MG TAB, DELAYED RELEASE) Take one(1) tablet daily. No current facility-administered medications for this visit. ALLERGIES: ALLERGIES Allergen Reactions Atorvastatin Myalgia, Other: See Comments PAST MEDICAL HISTORY Diagnosis Date Acute myocardial infarction of lateral wall (HCC) 2012 s/p LAD stent Aortic valve stenosis Atrophy of left kidney Benign neoplasm of colon Benign neoplasm of meninges (HCC) 08/02/2020 Bursitis CAD (coronary artery disease) Chronic kidney disease External hemorrhoids Hammertoe of right foot Hyperlipidemia Hypokalemia Irregular heart rhythm Lipoma Meningioma (HCC) Mitral valve prolapse Neuroma MELL on CPAP Seizure (HCC) focal motor PAST SURGICAL HISTORY Procedure Laterality Date COLONOSCOPY FLX DX W/COLLJ SPEC WHEN PFRMD 10/29/2009 Colonoscopy COLONOSCOPY FLX DX W/COLLJ SPEC WHEN PFRMD 2016 HEMORRHOID;BAND LIGAT, SNGL/MUL 12/2016 MRI 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 PAST SURGICAL HISTORY OF Left 04/2017 left knee arthroscopy - meniscus PAST SURGICAL HISTORY OF 01/2013 PTCA x 1 - LAD PT ED HEART AND VASCULAR 2012 coronary angioplasty graft and stent FAMILY HISTORY Problem Relation Age of Onset Colon Cancer Mother ascending large intestine removed 2008 at 80 years old Prostate Cancer Brother Colon Cancer Maternal Grandmother portion lower colon removed 60 years old, colostomy Social History Tobacco Use Smoking status: Never Smokeless tobacco: Never Vaping Use Vaping status: Never Used Substance Use Topics Alcohol use: No Drug use: No Reviewed current medications, allergies, past medical history, surgical history, family history and social history today. REVIEW OF (more content not included)... Normal [facility] Cardiology Visit Reporton Cardiology Visit Report [facility] [address] [place] [address] OFFICE VISIT Date of Service: 04/24/24 MR#: [id number] Acct: [id number] Name: WATSON RODRIGUEZ Rep #: [id number] : 1960 Provider: Dr. 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 Patient has history of known coronary disease status post anterior wall myocardial infarction in 2012 where he underwent PCI with stenting of the LAD and IntraOp balloon pump placement by Dr. Gabriel at [facility]. The patient had an ischemic dilated cardiomyopathy he was aggressively treated with medical therapy in April 10, 2023 his EF improved to 60%. He had moderate concentric LVH mildly dilated aortic root aortic valve calcification and a mean aortic valve gradient of 17 and aortic root diameter 4.3.. The patient denies any anginal type symptoms. He denies any PND orthopnea he walks on a routine basis without restrictions. The patient also has a history of a meningioma treated at the [facility] with gamma knife surgery. He has residual right foot weakness at times. The patient also history of hyperlipidemia last lipids April 2023 total cholesterol 131 HDL 40 LDL 81 and triglycerides 49 this is on intensive statin therapy with rosuvastatin 40 mg daily. The patient reports he is doing very well in his home environment. He denies any syncope or near syncope denies any seizure activity. Intake Vital Signs 04/17/23 15:03 04/24/24 13:02 Height 5 ft 11 in 5 ft 11 in Weight: 189 lb BMI 26.3 BP 124/79 H Blood Pressure Location Lt brachial Position Sitting Respiration 18 Pulse 55 L Pulse Source Monitor Pulse Oximetry (%) 97 Oxygen Delivery Method room air Intake Visit Reasons: 9 M FU Recreation Engineer Required: No Accompanied by: Is patient in pain?: No Allergies atorvastatin (From Lipitor) Adverse Reaction (Verified 04/24/24 13:02) Other Medications ???Medication ???Instructions ???Recorded ???Confirmed ???Type aspirin 81 mg tablet,delayed 81 mg PO DAILY 02/02/17 04/24/24 History release multivitamin 1 ea PO DAILY 02/02/17 04/24/24 History sildenafil 50 mg tablet (Viagra) 50 mg PO QDAY PRN ERECTILE 04/14/17 04/24/24 History clonazepam 1 mg disintegrating 1 mg PO DAILY PRN seizure activity 07/21/21 04/24/24 History tablet nitroglycerin 0.4 mg sublingual 0.4 mg sublingual Q5-15M PRN Pt 01/02/22 04/24/24 Rx tablet instructed NOT to take within 24 hrs of Viagra #25 tabs levetiracetam 750 mg tablet 1,000 mg PO BID 04/17/23 04/24/24 History (Keppra) rosuvastatin 40 mg tablet 40 mg PO QDAY #90 tabs 02/12/24 04/24/24 Rx Ejection fraction %: 60 Have you fallen in the past year?: No PFSH Medical History Wears glasses Non-smoker Sleep apnea CPAP (continuous positive airway pressure) dependence History of echocardiogram History of stress test Cardiology follow-up encounter 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) Nonrheumatic aortic (valve) stenosis Brain tumor (benign) Seizures Ischemic cardiomyopathy Nonrheumatic mitral (valve) prolapse Atherosclerotic heart disease of [place] coronary artery without angina pectoris Hyperlipemia Anteroseptal myocardial infarction Surgical History Status post gamma knife treatment Postsurgical percutaneous transluminal coronary angioplasty (PTCA) status Presence of stent in coronary artery (01/15/13) History of hemorrhoidectomy History of colonoscopy Family History Mother Macular degeneration Brother Myocardial infarction CAD (coronary artery disease) Social History Smoking Status: Never smoker second hand exposure: No alcohol intake: never substance use type: does not use caffeine: No what type of physical activity do you participate in: none seatbelt use: always ROS Const Const: Negative for fatigue or weakness ENT ENT: Negative for dizziness or balance problems Cardio Chest Pain: No Palpitations: No Edema: None Muscle aches with walking: None Resp Respiratory: Negative for SOB with activity, SOB at rest or SOB orthopnea SOB lying down GI GI: Negative nausea, vomiting or heartburn Musc Musc: Negative for muscle weakness or balance problems Neuro Neuro: Negative for dizziness, lightheadedness, near syncope, syncope or weakness Endo Endo: Negative for fatigue Cardiology Exam Const Ap (more content not included)... Normal [facility] 04-18-2024 [facility] Office Visit ([facility] ) WATSON RODRIGUEZ ([id number]) 1960 M DNS Date Time Provider Department 04/18/24 9:40 AM FOUZIA AMADO [facility] During your visit today, we recorded the following information about you: Temperature Pulse Respiration Blood pressure 97.1 degrees 61/minute 16/minute 124/72 Weight 84.4 kg Fouzia Amado, MERCHANT BANKER.[facility] 04/18/2024 9:59 AM Signed This is a 64 year old male who presents today with: Patient presents with: Cough: Started 03/20/24. Deep cough, productive URI: Head congestion HISTORY OF PRESENT ILLNESS: Watson Rodriguez is a 64 year old male. Patient presents with: Cough: Started 03/20/24. Deep cough, productive URI: Head congestion Started with a dry cough about 4 1/2 weeks again. Treated for tick bite with doxycyline for 10 days. Cough improved. Once again, he got the cough and chest congestion. More cough in the evening. Coughing a lot when he lays down. Took a picture of sputum- dark yellow. Hasn't taken decongestants. No fever or chills. Some sinus pressure and drainage in throat. PAST MEDICAL HISTORY: PAST MEDICAL HISTORY Diagnosis Date Acute myocardial infarction of lateral wall (HCC) 2012 s/p LAD stent Aortic valve stenosis Atrophy of left kidney Benign neoplasm of colon Benign neoplasm of meninges (HCC) 08/02/2020 Bursitis CAD (coronary artery disease) Chronic kidney disease External hemorrhoids Hammertoe of right foot Hyperlipidemia Hypokalemia Irregular heart rhythm Lipoma Meningioma (HCC) Mitral valve prolapse Neuroma MELL on CPAP Seizure (HCC) focal motor PAST SURGICAL HISTORY Procedure Laterality Date COLONOSCOPY FLX DX W/COLLJ SPEC WHEN PFRMD 10/29/2009 Colonoscopy COLONOSCOPY FLX DX W/COLLJ SPEC WHEN PFRMD 2016 HEMORRHOID;BAND LIGAT, SNGL/MUL 12/2016 MRI 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 clonazePAM orally disintegrating (KLONOPIN WAFER) 1 mg disintegrating tablet DISSOLVE 1 TABLET IN MOUTH THREE TIMES DAILY NEEDED (SEIZURES) FOR UP TO 30 DAYS sildenafil (VIAGRA) 100 mg tablet Take 1 pill 1 hour prior to sexual activity on empty stomach dexAMETHasone (DECADRON) 2 mg tablet 2 mg the day prior to the flight, the day of the flight and the day after the flight. rosuvastatin (CRESTOR) 40 mg tablet Take 40 mg by mouth. Multivitamin capsule Take 1 capsule by mouth once daily. aspirin(ADULT LOW DOSE ASPIRIN 81 MG TAB, DELAYED RELEASE) Take one(1) tablet daily. CPAP/BIPAP/OTHER Type .CPAPSettings into a note to see current settings/supplies/DME information. CPAP/BIPAP/OTHER MASK REFITTING. Continue Auto CPAP with current settings of 5-20 cm H2O. Lifetime supplies for Auto CPAP, including patient preferred mask, head gear, heated tubing, humidity, filters, chin strap. Dx: Obstructive Sleep Apnea G47.33 DME: [facility] [phone] fax# [phone] Fax download reports to [phone]. CPAP Initiate Auto PAP @ 5-20 cm of water with humidification. Mask (per patient preference) optional chin strap (if indicated) , filters, tubing, humidifier and lifetime supplies. No current facility-administered medications for this visit. FAMILY HISTORY Problem Relation Age of Onset Colon Cancer Mother ascending large intestine removed 2009 at 80 years old Prostate Cancer Brother Colon Cancer Maternal Grandmother portion lower colon removed 60 years old, colostomy Social History Tobacco Use Smoking status: Never Smokeless tobacco: Never Vaping Use Vaping status: Never Used Substance Use Topics Alcohol use: No Drug use: No EXAM: BP 124/72 Pulse 61 Temp 36.2 ?C (97.1 ?F) (Tympanic) Resp 16 Wt 84.4 kg (186 lb) SpO2 97% BMI 25.94 kg/m? PHYSICAL EXAM: Physical Exam Vitals reviewed. Constitutional: Appearance: Normal appearance. HENT: Head: Normocephalic. Right Ear: Ear canal and external ear normal. There is no impacted cerumen. Left Ear: Tympanic membrane, ear canal and external ear normal. There is no impacted cerumen. Ears: Comments: Right ear bulging Nose: Congestion and rhinorrhea present. Comments: Nasal erosions right nare, purulent matter and PND Mouth/Throat: Pharynx: Oropharyngeal exudate present. No posterior oropharyngeal erythema. Cardiovascular: Rate and Rhythm: Normal rate and regular rhythm. Pulses: Normal pulses. Heart sounds: Murmur heard. Pulmonary: Effort: Pulmonary effort is normal. Breath sounds: Normal breath sounds. Comments: P (more content not included)... Normal [facility]20[facility] [employer] WATSON RODRIGUEZ ([id number]) 1960 [facility] Date Time Provider Department 03/17/24 ORQUIDEA LEY During your visit today, we recorded the following information about you: Pippa Yun LPN 03/17/2024 3:22 PM Signed Patient called in and needs to reschedule his colonoscopy that is currently scheduled in April with Dr. Ley. Please reach out to patient to reschedule. SUSANNA Morton Kimberly, LPN 03/28/2024 10:54 AM Signed Patient called. Verified name and date of . Patient is asking when he can be scheduled for colonoscopy? He was scheduled for April 21, 2024 but he had a commitment that had come up and had cancelled it. Schedule is now 08/04/2024- patient would prefer not to wait that long and is asking if he can get in any sooner. Patient prefers to be scheduled in May. Please review and advise. Florence Saba LPN Allergies As of Date: 03/17/2024 Noted Allergy Reaction ATORVASTATIN 03/30/2014 17 - Myalgia 14 - Other: See Comments Date Reviewed: 12/07/2023 Reviewed by: Milady Velasco LPN - Fully Assessed Reason for Visit: Appointment [[id number]] Prescriptions as of 03/28/2024 - levETIRAcetam (KEPPRA) 500 mg tablet Take 2 tablets by mouth two times a day. - CPAP/BIPAP/OTHER Type .CPAPSettings into a note to see current settings/supplies/DME information. - clonazePAM orally disintegrating (KLONOPIN WAFER) 1 mg disintegrating tablet DISSOLVE 1 TABLET IN MOUTH THREE TIMES DAILY NEEDED (SEIZURES) FOR UP TO 30 DAYS - sildenafil (VIAGRA) 100 mg tablet Take 1 pill 1 hour prior to sexual activity on empty stomach - CPAP/BIPAP/OTHER MASK REFITTING. Continue Auto CPAP with current settings of 5-20 cm H2O. Lifetime supplies for Auto CPAP, including patient preferred mask, head gear, heated tubing, humidity, filters, chin strap. Dx: Obstructive Sleep Apnea G47.33 DME: [facility] [phone] ?fax# [phone] Fax download reports to [phone]. - dexAMETHasone (DECADRON) 2 mg tablet 2 mg the day prior to the flight, the day of the flight and the day after the flight. - CPAP Initiate Auto PAP @ 5-20 cm of water with humidification. Mask (per patient preference) optional chin strap (if indicated) , filters, tubing, humidifier and lifetime supplies. - rosuvastatin (CRESTOR) 40 mg tablet Take 40 mg by mouth. - Multivitamin capsule Take 1 capsule by mouth once daily. - aspirin(ADULT LOW DOSE ASPIRIN 81 MG TAB, DELAYED RELEASE) Take one(1) tablet daily. Problem List As Of Date 03/17/2024 Noted Resolved Benign Neoplasm of Colon [D12.6] 10/29/2009 Special Screening for Malignant Neoplasms, [place]*10/29/2009 Personal history of colonic polyps [Z86.0100] 11/23/2016 Inflamed external hemorrhoid [K64.4] 11/23/2016 Meningioma (HCC) [D32.9] 08/02/2020 Localized edema [R60.0] 10/22/2020 Brain edema (HCC) [G93.6] 11/10/2020 Coronary artery disease involving benton lopez*12/17/2020 Nonrheumatic aortic valve stenosis [I35.0] 12/17/2020 Mixed hyperlipidemia [E78.2] 12/17/2020 Recurrent seizures (HCC) [G40.909] 01/08/2021 01/12/2021 Renal atrophy, left [N26.1] 01/27/2021 CKD (chronic kidney disease) stage 1, GFR 90 ml*01/27/2021 MELL on CPAP [G47.33] 01/31/2021 Tinnitus, right ear [H93.11] 02/20/2021 Sensorineural hearing loss, bilateral [H90.3] 02/20/2021 Seizure (HCC) [R56.9] 05/18/2021 Focal motor seizure (HCC) [G40.109] 11/13/2020 History of myocardial infarction [I25.2] 01/15/2013 Hypokalemia [E87.6] 05/30/2022 Intracranial meningioma (HCC) [D32.0] 05/30/2022 Light sensitivity [R68.89] 08/21/2020 Mitral valve prolapse [I34.1] 01/20/2013 Myocardial ischemia [I25.9] 01/20/2013 Other specified disorders of the skin and subcu*01/23/2022 Presence of coronary angioplasty implant and gr*02/08/2022 Radiological procedure and radiotherapy as the *01/23/2022 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 Weakness [R53.1] 01/23/2022 Irregular heart rhythm [I49.9] 04/17/2023 Diagnosed: 04/25/2023 Lipoma [D17.9] 04/25/2023 Diagnosed: 04/25/2023 Hammertoe of right foot [M20.41] 05/04/2023 Foot pain, right [M79.671] 05/04/2023 Numbness [R20.0] 05/04/2023 Bursitis of right foot [M77.51] 05/04/2023 Neuroma [D36.10] 05/04/2023 Glioblastoma (HCC) [C71.9] 09/13/2023 Encounter Status:Closed by PIPPA YUN on 03/17/24 [facility] 01-23-2024 [facility] Telephone (NEUR) WATSON RODRIGUEZ ([id number]) 1960 Scottie DNS Date Time Provider Department 01/23/24 MIGUELANGEL SPENCE [facility] During your visit today, we recorded the following information about you: Allergies As of Date: 01/23/2024 Noted Allergy Reaction ATORVASTATIN 03/30/2014 17 - Myalgia 14 - Other: See Comments Date Reviewed: 12/07/2023 Reviewed by: Milady Velasco LPN - Fully Assessed Prescriptions as of 01/23/2024 - turmeric (CURCUMIN MISC) 1,000 mg two times a day. - CPAP/BIPAP/OTHER Type .CPAPSettings into a note to see current settings/supplies/DME information. - clonazePAM orally disintegrating (KLONOPIN WAFER) 1 mg disintegrating tablet DISSOLVE 1 TABLET IN MOUTH THREE TIMES DAILY NEEDED (SEIZURES) FOR UP TO 30 DAYS - sildenafil (VIAGRA) 100 mg tablet Take 1 pill 1 hour prior to sexual activity on empty stomach - CPAP/BIPAP/OTHER MASK REFITTING. Continue Auto CPAP with current settings of 5-20 cm H2O. Lifetime supplies for Auto CPAP, including patient preferred mask, head gear, heated tubing, humidity, filters, chin strap. Dx: Obstructive Sleep Apnea G47.33 DME: [facility] [phone] ?fax# [phone] Fax download reports to [phone]. - levETIRAcetam (KEPPRA) 500 mg tablet Take 2 tablets by mouth two times a day. - dexAMETHasone (DECADRON) 2 mg tablet 2 mg the day prior to the flight, the day of the flight and the day after the flight. - CPAP Initiate Auto PAP @ 5-20 cm of water with humidification. Mask (per patient preference) optional chin strap (if indicated) , filters, tubing, humidifier and lifetime supplies. - rosuvastatin (CRESTOR) 40 mg tablet Take 40 mg by mouth. - Multivitamin capsule Take 1 capsule by mouth once daily. - aspirin(ADULT LOW DOSE ASPIRIN 81 MG TAB, DELAYED RELEASE) Take one(1) tablet daily. Problem List As Of Date 01/23/2024 Noted Resolved Benign Neoplasm of Colon [D12.6] 10/29/2009 Special Screening for Malignant Neoplasms, [place]*10/29/2009 Personal history of colonic polyps [Z86.010] 11/23/2016 Inflamed external hemorrhoid [K64.4] 11/23/2016 Meningioma (HCC) [D32.9] 08/02/2020 Localized edema [R60.0] 10/22/2020 Brain edema (HCC) [G93.6] 11/10/2020 Coronary artery disease involving benton lopez*12/17/2020 Nonrheumatic aortic valve stenosis [I35.0] 12/17/2020 Mixed hyperlipidemia [E78.2] 12/17/2020 Recurrent seizures (HCC) [G40.909] 01/08/2021 01/12/2021 Renal atrophy, left [N26.1] 01/27/2021 CKD (chronic kidney disease) stage 1, GFR 90 ml*01/27/2021 MELL on CPAP [G47.33] 01/31/2021 Tinnitus, right ear [H93.11] 02/20/2021 Sensorineural hearing loss, bilateral [H90.3] 02/20/2021 Seizure (HCC) [R56.9] 05/18/2021 Focal motor seizure (HCC) [G40.109] 11/13/2020 History of myocardial infarction [I25.2] 01/15/2013 Hypokalemia [E87.6] 05/30/2022 Intracranial meningioma (HCC) [D32.0] 05/30/2022 Light sensitivity [R68.89] 08/21/2020 Mitral valve prolapse [I34.1] 01/20/2013 Myocardial ischemia [I25.9] 01/20/2013 Other specified disorders of the skin and subcu*01/23/2022 Presence of coronary angioplasty implant and gr*02/08/2022 Radiological procedure and radiotherapy as the *01/23/2022 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 MR Brain WO and W contrast I Von 08-31-[address] [facility] CBC W Auto Differential pane l (Bld)on 03-29-2023 Basophils (Bld) [#/Vol] <0.11 k/uL [facility] Basophils/100 WBC (Bld) 0.3 % [facility] Differential cell count method Nom (Bld) Auto [facility] Eosinophils (Bld) [#/Vol] 0.04 10*3/uL <0.46 k/uL [facility] Eosinophils/100 WBC (Bld) 0.5 % [facility] Erythrocyte distribution width (RBC) [Ratio] 11.7 % 11.5 - 15.0 % [facility] Hematocrit (Bld) [Volume fraction] 41.5 % 39.0 - 51.0 % [facility] Hemoglobin (Bld) [Mass/Vol] 14.6 g/dL 13.0 - 17.0 g/dL [facility] Immature granulocytes (Bld) [#/Vol] <0.10 k/uL [facility] Immature granulocytes/100 WBC (Bld) 0.3 % [facility] Lymphocytes (Bld) [#/Vol] 0.92 10*3/uL Low 1.00 - 4.00 k/uL [facility] Lymphocytes/100 WBC (Bld) 11.5 % [facility] MCH (RBC) [Entitic mass] 31.9 pg 26.0 - 34.[address] [facility] MCHC (RBC) [Mass/Vol] 35.2 g/dL 30.5 - 36.0 g/dL [facility] MCV (RBC) [Entitic vol] 90.8 fL 80.0 - 100.[address] [facility] Monocytes (Bld) [#/Vol] 0.70 10*3/uL <0.87 k/uL [facility] Monocytes/100 WBC (Bld) 8.8 % [facility] Neutrophils (Bld) [#/Vol] 6.30 10*3/uL 1.45 - 7.50 k/uL [facility] Neutrophils/100 WBC (Bld) 78.6 % [facility] Nucleated RBC (Bld) [#/Vol] <0.01 k/uL [facility] Nucleated RBC/100 WBC (Bld) [Ratio] 0.0 /[address] [facility] Platelet mean volume (Bld) [Entitic vol] 8.6 fL Low 9.0 - 12.[address] [facility] Platelets (Bld) [#/Vol] 178 10*3/uL 150 - 400 k/uL [facility] RBC (Bld) [#/Vol] 4.57 10*6/uL 4.20 - 6.0 0 m/uL [facility] WBC (Bld) [#/Vol] 8.00 10*3/uL 3.70 - 11. 00 k/uL [facility] US ASP/INJ HAND/FINGER/FOOT/ TOE JT BURSA RTon 03-12-2023 [facility] MRI BRAIN WO/W IVCONon 01-[address] [facility] US FOOT RIGHTon 01-19-[address] [facility] MRI BRAIN WO/W IVCONon 07-[address] [facility] MRI BRAIN WO/W IVCONon 04-[address] [facility] CBC W Auto Differential pane l (Bld)on 04-10-2022 Basophils (Bld) [#/Vol] <0.11 k/uL [facility] Basophils/100 WBC (Bld) 0.5 % [facility] Differential cell count method Nom (Bld) Auto [facility] Eosinophils (Bld) [#/Vol] 0.04 10*3/uL <0.46 k/uL [facility] Eosinophils/100 WBC (Bld) 0.9 % [facility] Erythrocyte distribution width (RBC) [Ratio] 11.9 % 11.5 - 15.0 % [facility] Hematocrit (Bld) [Volume fraction] 40.4 % 39.0 - 51.0 % [facility] Hemoglobin (Bld) [Mass/Vol] 14.6 g/dL 13.0 - 17.0 g/dL [facility] Immature granulocytes (Bld) [#/Vol] <0.10 k/uL [facility] Immature granulocytes/100 WBC (Bld) 0.2 % [facility] Lymphocytes (Bld) [#/Vol] 0.98 10*3/uL Low 1.00 - 4.00 k/uL [facility] Lymphocytes/100 WBC (Bld) 22.6 % [facility] MCH (RBC) [Entitic mass] 31.8 pg 26.0 - 34.[address] [facility] MCHC (RBC) [Mass/Vol] 36.1 g/dL High 30.5 - 36.0 g/dL [facility] MCV (RBC) [Entitic vol] 88.0 fL 80.0 - 100.[address] [facility] Monocytes (Bld) [#/Vol] 0.52 10*3/uL <0.87 k/uL [facility] Monocytes/100 WBC (Bld) 12.0 % [facility] Neutrophils (Bld) [#/Vol] 2.76 10*3/uL 1.45 - 7.50 k/uL [facility] Neutrophils/100 WBC (Bld) 63.8 % [facility] Nucleated RBC (Bld) [#/Vol] <0.01 k/uL [facility] Nucleated RBC/100 WBC (Bld) [Ratio] 0.0 /[address] [facility] Platelet mean volume (Bld) [Entitic vol] 8.6 fL Low 9.0 - 12.[address] [facility] Platelets (Bld) [#/Vol] 169 10*3/uL 150 - 400 k/uL [facility] RBC (Bld) [#/Vol] 4.59 10*6/uL 4.20 - 6.0 0 m/uL [facility] WBC (Bld) [#/Vol] 4.33 10*3/uL 3.70 - 11. 00 k/uL [facility] Comprehensive metabolic 2000 panelon 04-10-2022 Albumin [Mass/Vol] 4.3 g/dL 3.9 - 4.9 g/dL [facility] ALP [Catalytic activity/Vol] 67 U/L 38 - 113 U/L [facility] ALT [Catalytic activity/Vol] 16 U/L 10 - 54 U/L [facility] Anion gap [Moles/Vol] 7 mmol/L Low 9 - 18 mmol/L [facility] AST [Catalytic activity/Vol] 19 U/L 14 - 40 U/L [facility] Bilirubin [Mass/Vol] 0.4 mg/dL 0.2 - 1.3 mg/dL [facility] Calcium [Mass/Vol] 8.6 mg/dL 8.5 - 10. 2 mg/dL [facility] Chloride [Moles/Vol] 99 mmol/L 97 - 105 mmol/L [facility] CO2 [Moles/Vol] 27 mmol/L 22 - 30 mmol/L [facility] Creatinine [Mass/Vol] 1.02 mg/dL 0.73 - 1.22 mg/dL [facility] Estimated Glomerular Filtration Rate 82 mL/min/1.73m >=60 mL/min/1.73m [facility] Glucose [Mass/Vol] 88 mg/dL 74 - 99 mg/dL [facility] Potassium [Moles/Vol] 4.4 mmol/L 3.7 - 5.1 mmol/L [facility] Protein [Mass/Vol] 6.5 g/dL 6.3 - 8.0 g/dL [facility] Sodium [Moles/Vol] 133 mmol/L Low 136 - 144 mmol/L [facility] Urea nitrogen [Mass/Vol] 12 mg/dL 9 - 24 mg/dL [facility] PROTEIN CREATININE RATIOon 1 06-10-2021 Protein/Creatinine (U) [Mass ratio] <0.15 mg/mg [facility] Protein/Creatinine (U) [Mass ratio]on 04-10-2022 Creatinine (U) [Mass/Vol] 57.8 mg/dL 20.0 - 300.0 mg/dL [facility] Protein (U) [Mass/Vol] 0 - 20 mg/dL [facility] US HEAD/NECK SOFT TISSUE OTH Wai 04-03-[address] [facility] XR Cervical spine AP and Lat eral and obliqueon 04-03-2022 IMPRESSION: DEGENERATIVE CHANGES DESCRIBED [employer] Machine Operator: NICOL Transcribe Date/Time: Apr 03 2022 4:46P Dictated by : STACIE WINSTON MD This examination was interpreted and the report reviewed and electronically signed by: STACIE WINSTON MD on Apr 03 2022 4:48PM [facility] * * *Final Report* * * DATE OF EXAM: Apr 03 2022 10:21AM [id number] [id number] - XR CERVICAL 4V AP/LAT/OBL / PROCEDURE REASON: Neck pain * * * * Physician Interpretation * * * * Examination: XR CERVICAL 4V AP/LAT/OBL History: Neck pain Comparison: None RESULT: Moderate mid and lower cervical spondylosis and osteophytosis. Mild disc space narrowing at C4-5 and C6-7. No fracture or prevertebral swelling. Moderate foraminal encroachment bilaterally at C3-4, C4-5 and C5-6. Normal lordosis. Normal mineralization DIVISION OF RADIOLOGY Provider, [facility] Rebekah [facility] - 04/03/2022 * * *Final Report* * * DATE OF EXAM: Nov 21 2022 10:21AM [id number] [id number] - XR CERVICAL 4V AP/LAT/OBL / PROCEDURE REASON: Neck pain * * * * Physician Interpretation * * * * Examination: XR CERVICAL 4V AP/LAT/OBL History: Neck pain Comparison: None RESULT: Moderate mid and lower cervical spondylosis and osteophytosis. Mild disc space narrowing at C4-5 and C6-7. No fracture or prevertebral swelling. Moderate foraminal encroachment bilaterally at C3-4, C4-5 and C5-6. Normal lordosis. Normal mineralization IMPRESSION IMPRESSION: DEGENERATIVE CHANGES DESCRIBED [employer] Operator: NICOL Transcribe Date/Time: Apr 03 2022 4:46P Dictated by : STACIE WINSTON MD This examination was interpreted and the report reviewed and electronically signed by: STACIE WINSTON MD on Apr 03 2022 4:48PM EST [facility] Radiology Study observation (narrative) [facility] XR Cervical spine AP and Lat eral and obliqueOrdered By: [facility] Provider on 04-03-[address] [facility] CBC W Auto Differential pane l (Bld)on 02-27-2022 Basophils (Bld) [#/Vol] <0.11 k/uL [facility] Basophils/100 WBC (Bld) 0.2 % [facility] Differential cell count method Nom (Bld) Auto [facility] Eosinophils (Bld) [#/Vol] 0.08 10*3/uL <0.46 k/uL [facility] Eosinophils/100 WBC (Bld) 1.7 % [facility] Erythrocyte distribution width (RBC) [Ratio] 11.9 % 11.5 - 15.0 % [facility] Hematocrit (Bld) [Volume fraction] 40.3 % 39.0 - 51.0 % [facility] Hemoglobin (Bld) [Mass/Vol] 14.6 g/dL 13.0 - 17.0 g/dL [facility] Immature granulocytes (Bld) [#/Vol] <0.10 k/uL [facility] Immature granulocytes/100 WBC (Bld) 0.4 % [facility] Lymphocytes (Bld) [#/Vol] 0.91 10*3/uL Low 1.00 - 4.00 k/uL [facility] Lymphocytes/100 WBC (Bld) 18.8 % [facility] MCH (RBC) [Entitic mass] 32.1 pg 26.0 - 34.[address] [facility] MCHC (RBC) [Mass/Vol] 36.2 g/dL High 30.5 - 36.0 g/dL [facility] MCV (RBC) [Entitic vol] 88.6 fL 80.0 - 100.[address] [facility] Monocytes (Bld) [#/Vol] 0.52 10*3/uL <0.87 k/uL [facility] Monocytes/100 WBC (Bld) 10.7 % [facility] Neutrophils (Bld) [#/Vol] 3.30 10*3/uL 1.45 - 7.50 k/uL [facility] Neutrophils/100 WBC (Bld) 68.2 % [facility] Nucleated RBC (Bld) [#/Vol] <0.01 k/uL [facility] Nucleated RBC/100 WBC (Bld) [Ratio] 0.0 /[address] [facility] Platelet mean volume (Bld) [Entitic vol] 8.6 fL Low 9.0 - 12.[address] [facility] Platelets (Bld) [#/Vol] 180 10*3/uL 150 - 400 k/uL [facility] RBC (Bld) [#/Vol] 4.55 10*6/uL 4.20 - 6.0 0 m/uL [facility] WBC (Bld) [#/Vol] 4.84 10*3/uL 3.70 - 11. 00 k/uL [facility] Comprehensive metabolic 2000 panelon 02-27-2022 Albumin [Mass/Vol] 4.5 g/dL 3.9 - 4.9 g/dL [facility] ALP [Catalytic activity/Vol] 80 U/L 38 - 113 U/L [facility] ALT [Catalytic activity/Vol] 16 U/L 10 - 54 U/L [facility] Anion gap [Moles/Vol] 8 mmol/L Low 9 - 18 mmol/L [facility] AST [Catalytic activity/Vol] 17 U/L 14 - 40 U/L [facility] Bilirubin [Mass/Vol] 0.4 mg/dL 0.2 - 1.3 mg/dL [facility] Calcium [Mass/Vol] 9.0 mg/dL 8.5 - 10. 2 mg/dL [facility] Chloride [Moles/Vol] 99 mmol/L 97 - 105 mmol/L [facility] CO2 [Moles/Vol] 27 mmol/L 22 - 30 mmol/L [facility] Creatinine [Mass/Vol] 0.83 mg/dL 0.73 - 1.22 mg/dL [facility] Estimated Glomerular Filtration Rate 98 mL/min/1.73m >=60 mL/min/1.73m [facility] Glucose [Mass/Vol] 96 mg/dL 74 - 99 mg/dL [facility] Potassium [Moles/Vol] 4.1 mmol/L 3.7 - 5.1 mmol/L [facility] Protein [Mass/Vol] 6.8 g/dL 6.3 - 8.0 g/dL [facility] Sodium [Moles/Vol] 134 mmol/L Low 136 - 144 mmol/L [facility] Urea nitrogen [Mass/Vol] 13 mg/dL 9 - 24 mg/dL [facility] CNTHERAPYon 02-07-2022 CNTHERAPY OT/PT/Speech Visit ( OTNOCA) WATSON RODRIGUEZ ([id number]) 1960 M DNS Date Time Provider Department 02/07/22 1:30 PM MARLENE ESPOSITO Date Time Provider Department Center 02/07/2022 1:30 PM [id number] Reason for Visit: OT EVAL [748] OT Discharge [750] Visit Diagnoses:Meningioma (HCC) [D32.9] Seizure (HCC) [R56.9] Allergies As of Date: 02/07/2022 Noted Allergy Reaction ATORVASTATIN 03/30/2014 17 - Myalgia 14 - Other: See Comments Date Reviewed: 12/20/2021 Reviewed by: Tena Andrews RN - Fully Assessed Prescriptions as of 06/09/2022 - levETIRAcetam (KEPPRA) 500 mg tablet Take 2 tablets by mouth twice daily. - midazolam (NAYZILAM) 5 mg/spray (0.1 mL) nasal spray Use 1 spray in one nostril as needed for seizures. May repeat dose in alternate nostril after 10 minutes based on response and tolerability. Only take for seizures lasting more than 3 minutes or more than 3 seizures in an hour - clonazePAM orally disintegrating (KLONOPIN WAFER) 1 mg disintegrating tablet Dissolve 1 tablet under the tongue three times daily as needed (seizures) for up to 30 days. - lacosamide (VIMPAT) 100 mg tab Take 200 Mg BID - sildenafil (VIAGRA) 100 mg tablet Take 1 pill 1 hour prior to sexual activity on empty stomach - dexAMETHasone (DECADRON) 2 mg tablet 2 mg the day prior to the flight, the day of the flight and the day after the flight. - CPAP Initiate Auto PAP @ 5-20 cm of water with humidification. Mask (per patient preference) optional chin strap (if indicated) , filters, tubing, humidifier and lifetime supplies. - rosuvastatin (CRESTOR) 40 mg tablet Take 40 mg by mouth. - Multivitamin capsule Take 1 capsule by mouth once daily. - aspirin(ADULT LOW DOSE ASPIRIN 81 MG TAB, DELAYED RELEASE) Take one(1) tablet daily. Letter Text [facility] No Panel Informationon 01-[address] [facility] EMG(NEURO/NI)on 01-06-[address] [facility] No Panel Informationon 12-[address] [facility] CT BRAIN WO IVCONon 08-26-[address] [facility] CASE MANAGEMon 01-12-2021 CASE MANAGEM HNO ID: [id number] Author: Vidhya Fang RN Service: Case Management Author Type: Registered Nurse Type: Care Mgt Progress Note Filed: 01/12/2021 11:16 AM Note Text: CARE MANAGEMENT DISCHARGE NOTE SERVICE DATE: 01/12/2021 SERVICE TIME: 11:16 AM LOS: 2 days Per chart review, no post-acute skilled needs identified or ordered. Patient returning home with self care and follow up appointments as needed. SIGNATURE: Vidhya Fang RN PATIENT NAME: Watson Rodriguez DATE: January 12, 2021 TIME: 11:16 AM PAGER/CONTACT #: [phone] [facility] CNCOon 01-12-2021 CNCO Letter Text [facility] CNDSon 01-12-2021 CNDS HNO ID: [id number] Author: Selina Candelario MD Service: Hospital Medicine Author Type: Physician Type: Discharge Summary Filed: 01/12/2021 10:44 AM Note Text: [facility] HOSPITALIST DISCHARGE SUMMARY PATIENT NAME: Watson Rodriguez ADMISSION DATE: 01/08/2021 DISCHARGE DATE: 01/12/2021 Attending Physician: Selina Candelario MD Code Status: Not on file Discharge diagnoses History of meningioma Recurrent Seizures CAD s/p PCI in 2012 Hospital Course:60 yo with history of meningioma s/p GK in 08/2020 admitted with concern for recurrent focal R leg seizures. He was connected to bedside EEG monitoring for 72 hours. His keppra was also held during this time. During this time, he had no leg spasms/movements and no activity on EEG concerning for seizure He was followed by neurology throughout his stay who recommended resuming Keppra at discharge and following with Dr Neal outpatient. He was also given midazolam nasal spray to try for recurrent seizures per his request (previously given a prescription by Dr Neal which he didn't fill). Operations During Hospitalization: None Procedures During Hospitalization: EEG IMAGING None Transitions of Care Critical Issues: None LABS AND PROCEDURES PENDING AT DISCHARGE: No pending results. Consulting Teams During Hospitalization: Neurology: Dr Neal Patient Condition @ Discharge: Stable Discharge Disposition: Home/Self Care Physical Exam: Constitutional: alert and oriented x3 HEENT: normocephalic, supple neck Cardiovascular: RRR, no murmur Respiratory: clear bilaterally Abdomen: +BS, nontender to palpation, no rebounding or guarding Musculoskeletal: active ROM intact, 2+ pulses x4, no edema or cyanosis Neuro: grossly intact, CN 2-12 without deficiency Skin: no new lesions Information Provided to Patient: ADMIT DATE: 01/08/2021 DISCHARGE DATE: 01/12/2021 MY DOCTORS AND MEDICAL TEAM: My Main Hospital Doctor: Selina Candelario MD Primary Care Provider: Breanne Whittington MD Neurology; Dr Neal MY CONDITION AT DISCHARGE: Stable REASON I WAS IN THE HOSPITAL: You were admitted to the hospital with episodes of leg spasms/pain/involuntary movements concerning for possible seizures. You were connected to a bedside EEG monitor for 72 hours. Unfortunately during this time you had no further spasms and no seizure activity was noted. Please continue your keppra You were also given midazolam nasal spray to try for recurrent seizures. Diet: Resume pre-hospital diet Activity: Resume pre-hospital activity Wound/Surgical Site Care: None ALLERGIES No Known Allergies Discharge Medications: Medication List START taking these medications midazolam 5 mg/spray (0.1 mL) nasal spray Commonly known as: NAYZILAM Use 1 spray in one nostril as needed for seizures. May repeat dose in alternate nostril after 10 minutes based on response and tolerability. Only take for seizures lasting more than 3 minutes or more than 3 seizures in an hour CONTINUE taking these medications ADULT LOW DOSE ASPIRIN 81 mg EC tablet Generic drug: aspirin, enteric coated levETIRAcetam 500 mg tablet Commonly known as: KEPPRA Take 2 tablets by mouth twice daily. Multivitamin capsule OSTEO BI-FLEX ORAL PLAVIX 75 mg tablet Generic drug: clopidogrel rosuvastatin 40 mg tablet Commonly known as: CRESTOR sildenafil 50 mg tablet Commonly known as: VIAGRA Vitamin E (dl, acetate) 400 unit capsule Commonly known as: VITAMIN E Take 1 capsule by mouth twice daily. Where to Get Your Medications You can get these medications from any pharmacy Bring a paper prescription for each of these medications ? midazolam 5 mg/spray (0.1 mL) nasal spray Future Appointments: Future Appointments Date Time Provider Department Center 01/20/2021 9:00 AM MD ALISSA MendezAnselmo Chery [facility] B[facility] 01/21/2021 To Be Determined [facility] NEUR HOME SLEEP TEST [facility] Ind[facility] 02/23/2021 4:30 PM Gris Neal MD [facility] [facility] 11[facility]20 AM [facility] (I-STAT/1.5T) RMRIWS [place] 03/02/2021 3:00 PM MD DENIS Boo [place] 03/02/2021 4:00 PM MD DAYANARA EvansAMN [place] [facility] 03/09/2021 3:00 PM Breanne Whittington MD [facility] The patient's risk for 30-day readmission is determined using the following contributing factors: Pt variables contributing to increased readmission risk: 14 Most Recent BUN Result 10 Active Medication Orders 9.5 First Resulted Calcium During Admission 1 Insurance - Private Coverage 1 Discharge Disposition - Home Highest Readmission Risk Score: 6 The 30 day readmissions risk score is derived from an internally validated risk model which evaluates patient level characteristics, utilization history, medication orders and lab results up until the day of discharge. Patients with a score of 40 or above are considered highest risk for readmission. Specific patient level drivers will be listed at the bottom of the summary. TIME (more content not included)... [facility] CONSULT PROGon 01-12-2021 CONSULT PROG HNO ID: [id number] Author: Tori Bravo APRN.[employer] Service: Neurology General Author Type: Nurse Practitioner Type: Consult Progress Note Filed: 01/12/2021 9:33 AM Note Text: NEUROLOGY CONSULT PROGRESS NOTE SERVICE DATE: 01/12/2021 SERVICE TIME: 9:23 AM Current Attending Provider: Selina Candelario MD Subjective Interval History: Today, Watson is improved. Mild right leg weakness but has PT arrangements that he will continue with in the outpatient setting. Objective Physical Examination: BP 123/72 Pulse 60 Temp 36.7 ?C (98.1 ?F) (Oral) Resp 16 Ht 180.3 cm (5' 11) Wt 83 kg (183 lb) SpO2 98% BMI 25.52 kg/m? General: Resting quietly in bed. In no apparent distress. Cooperative and pleasant. Cardiac: S1 ANDS2 auscultated. RRR. No noted murmurs. Resp: Unlabored. Clear to auscultation. No noted rales, rhonchi, or wheezing Abd: Soft to palpation. Bowel sounds active. Neurological: ? Mental Status: He is oriented to person, place and time and situation. He does follow commands. Cranial Nerves: CNII: Visual acuity normal CNIII, IV, : Pupils equal, round and reactive to light CN VII: Facial muscles symmetric and strong, No noted facial droop CN VIII: Hears to spoken voice CN IX: Gag Reflex Not Examined CN X: Cough intact CN XI: Full strength shoulder shrug bilaterally ? CN XII: Tongue protrusion full and midline Motor Exam: ? Muscle Tone: Normal ? Strength today in the bilateral extremities is unchanged of mild right LE weakness ? Sensation: Intact to light touch. ? Gait: right LE limp with marching in place (limited due to connected to BEM) New Labs: WBC (k/uL) Date Value 01/08/2021 4.68 12/24/2020 3.75 RBC (m/uL) Date Value 01/08/2021 4.83 12/24/2020 5.12 Platelet Count (k/uL) Date Value 01/08/2021 178 12/24/2020 185 BUN (mg/dL) Date Value 01/08/2021 14 12/24/2020 15 Creatinine (mg/dL) Date Value 01/08/2021 1.09 12/24/2020 1.05 CBC, Coags, BMP, Mg, Phos Liver Function, Amylase, AND Lipase BEM Reading: Prelim: This bedside EEG was reviewed from 0426 on 01/11/21 to 0512 on 01/12/21 and is within ?normal limits. ?No epileptiform discharges or EEG seizures were recorded. This bedside EEG was reviewed from 0616 on 01/10/21 to 0426 on 01/11/21 and is within normal limits. ?No epileptiform discharges or EEG seizures were recorded. ? This bedside EEG was recorded from 0033 to 0555 on 01/09/21 and is consistent with a mild cortical dysfunction in the left parietal region. There were no epileptiform discharges or EEG seizures observed. ? This bedside EEG was reviewed from 0556 on 01/09/21 to 0616 on 01/10/21 ?and is suggestive of a mild cortical dysfunction in the right parietal region. There were no epileptiform discharges or EEG seizures observed. ? 20 min EEG:?This EEG is consistent with a mild cortical dysfunction in the left parietal region. ?No epileptiform discharges or EEG seizures were seen during this recording. DATA: Diagnostic tests reviewed for today's visit: Most recent labs and imaging results. Impression/Recommendations This is a 60 yr old?RH? gentleman with left parasagital lesion, likely meningioma, s/p GKRS ?In 5 fx completed 08/2020.?Has had some right leg heaviness and numbness with some simple partial seizures initially. Was doing well on keppra 1000/1000. Since last Sunday has had about 7 episodes of right foot painful sensation leading to cramping in toes. One episdoe associated with clonic activity. He was in [place] and increased his keppra dose to 1500mg BID. Had to go to ED where he was given diazepam. Direct admitted to capture events and seizure semiology and to rule out painful muscle spasms as opposed to simple partial seizures. Today the patient is AANDO x 3. Speech is clear and appropriate. Face symmetrical. Noted mild right LE weakness with marching in place. PT in place in the outpatient setting. BEM with no reports of seizure or epileptiform activity. Case discussed with Dr. Neal and will discontinue the BEM and restart Keppra 1000 mg bid due to past seizures. Pt states concerns that heat and dehydration may be a contributing factor in the events that resulted in his admission. Pt has follow up appointments with Dr. Ortiz for tinnitus (pt states he did not experience tinnitus while off Keppra), Dr. Neal, and Dr. Trev Sutton. No further neuro testing Plan: 1. No further neuro testing 2. Keppra 1000 mg bid 3. Follow up with Dr. Neal 4. Follow up with Dr. Ortiz (tinnitus) 5. Follow up with Dr. Sutton PT REVIEWED WITH DR. NEAL. PLAN OF CARE COLLABORATED WITH DR. NEAL. Please page the on-call neuro consult pager [phone] for questions after 5 pm. SIGNATURE: Tori Bravo APRN.CNP PATIENT NAME: Watson Rodriguez DATE: January 12, 2021 TIME: 9:22 AM Pager [phone] [facility] NURSING PROGon 01-12-2021 NURSING PROG HNO ID: [id number] Author: Laurie Vasquez RN Service: ? Author Type: Registered Nurse Type: Nursing Progress Note Filed: 01/12/2021 12:20 PM Note Text: Nursing Progress Note Patient Name: Watson Rodriguez Patient Location: [place] [id number] Daily Note: 0720 assumed care of patient. Pt resting in bed comfortably. No immediate needs at this time, all safety measures in place. Will continue to monitor 1150 called technology development intern, aware of DC order of EEG. Will be up shortly 1200 Brian, EEG at bedside 1215 reviewed DC meds, instructions, f/u visits with pt and spouse This note was completed by: Laurie Vasquez [facility] CONSULT PROGon 01-11-2021 CONSULT PROG HNO ID: [id number] Author: Tori Bravo APRN.[employer] Service: Neurology General Author Type: Nurse Practitioner Type: Consult Progress Note Filed: 01/11/2021 10:47 AM Note Text: NEUROLOGY CONSULT PROGRESS NOTE SERVICE DATE: 01/11/2021 SERVICE TIME: 10:35 AM Current Attending Provider: Selina Candelario MD Subjective Interval History: Today, Watson is improved. Pt with reports of a 30- 60 seconds of right foot twinge for 3 episodes. Pt with muscle of bilat calves. Objective Physical Examination: BP 104/67 Pulse (!) 54 Temp 36.3 ?C (97.3 ?F) (Oral) Resp 16 Ht 180.3 cm (5' 11) Wt 83 kg (183 lb) SpO2 96% BMI 25.52 kg/m? General: Resting quietly in bed. In no apparent distress. Cooperative and pleasant. Cardiac: S1 ANDS2 auscultated. RRR. No noted murmurs. Resp: Unlabored. Clear to auscultation. No noted rales, rhonchi, or wheezing Abd: Soft to palpation. Bowel sounds active. Neurological: ? Mental Status: He is oriented to person, place and time and situation. He does follow commands. Cranial Nerves: CNII: Visual acuity normal, Visual gonzalez full to confrontation, No APD noted on exam CNIII, IV, : Pupils equal, round and reactive to light, full extraoccular movements without nystagmus CN V: Facial sensation intact bilaterally to fine touchCN VII: Facial muscles symmetric and strong CN VIII: Hears to spoken voice CN IX: Gag Reflex Not Examined CN X: Palate elevates symmetrically CN XI: Full strength shoulder shrug bilaterally ? CN XII: Tongue protrusion full and midline Motor Exam: ? Muscle Tone: Normal ? Strength today in the bilateral extremities is 5/5 with very mild weakness of left foot/leg. ? Sensation: Intact to proprioception and light touch. ? Coordination: Finger-to- nose-finger intact bilaterally and Jtoo-cs-brew intact bilaterally. ? Gait: deferred New Labs: WBC (k/uL) Date Value 01/08/2021 4.68 12/24/2020 3.75 RBC (m/uL) Date Value 01/08/2021 4.83 12/24/2020 5.12 Platelet Count (k/uL) Date Value 01/08/2021 178 12/24/2020 185 BUN (mg/dL) Date Value 01/08/2021 14 12/24/2020 15 Creatinine (mg/dL) Date Value 01/08/2021 1.09 12/24/2020 1.05 CBC, Coags, BMP, Mg, Phos Recent Labs 01/08/21 2145 NA 139 K 4.0 CHLOR 102 CO2 26 GLUC 93 CA 9.5 Liver Function, Amylase, AND Lipase Recent Labs 01/08/21 2145 TPROT 6.7 ALB 4.6 ALT 27 AST 28 ALKPHOS 71 TBILI 0.4 BEM Reading: Prelim: This bedside EEG was reviewed from 0616 on 01/10/21 to 0426 on 01/11/21 and is within normal limits. ?No epileptiform discharges or EEG seizures were recorded. This bedside EEG was recorded from 0033 to 0555 on 01/09/21 and is consistent with a mild cortical dysfunction in the left parietal region. There were no epileptiform discharges or EEG seizures observed. ? This bedside EEG was reviewed from 0556 on 01/09/21 to 0616 on 01/10/21 ?and is suggestive of a mild cortical dysfunction in the right parietal region. There were no epileptiform discharges or EEG seizures observed. ? 20 min EEG: This EEG is consistent with a mild cortical dysfunction in the left parietal region. ?No epileptiform discharges or EEG seizures were seen during this recording. DATA: Diagnostic tests reviewed for today's visit: Most recent labs and imaging results. Impression/Recommendations This is a 60 yr old?RH? gentleman with left parasagital lesion, likely meningioma, s/p GKRS ?In 5 fx completed 08/2020.?Has had some right leg heaviness and numbness with some simple partial seizures initially. Was doing well on keppra 1000/1000. Since last Sunday has had about 7 episodes of right foot painful sensation leading to cramping in toes. One episdoe associated with clonic activity. He was in [place] and increased his keppra dose to 1500mg BID. Had to go to ED where he was given diazepam. Direct admitted to capture events and seizure semiology and to rule out painful muscle spasms as opposed to simple partial seizures. Today the patient is alert and oriented x 3. Face symmetrical. Speech clear and appropriate. Very mild right LE weakness. No strong right leg muscle cramping noted over night but did have episodes of right leg twitching at 8:50pm last evening, 1:10am this morning, 3:14 am this morning, and 7:15 am this morning that had right shoulder sensation of nerve conduction. Preliminary BEM unrevealing. Case discussed with Dr. Neal and may consider another day of monitoring since last dose of Keppra was on 01/09/21 at 8 am. Will continue to monitor. Plan: 1. Monitor Neuro Status 2. Continue BEM 3. Cont to hold Keppra 4. Dr. Neal to talk with patient today PT REVIEWED WITH DR. NEAL. PLAN OF CARE COLLABORATED WITH DR. NEAL. Please page the on-call neuro consult pager [phone] for questions after 5 pm. SIGNATURE: Tori Bravo APRN.MONO PATIENT NAME: Watson Rodriguez DATE: January 11, 2021 (more content not included)... [facility] NURSING PROGon 01-11-2021 NURSING PROG HNO ID: [id number] Author: Gladys Lira RN Service: Nursing Author Type: Registered Nurse Type: Nursing Progress Note Filed: 01/11/2021 8:43 PM Note Text: Nursing Progress Note Patient Name: Watson Rodriguez Patient Location: [place] [id number] Daily Note:1100: Received report from off going nurse, assumed care of patient. All safety measures in place, will continue to monitor. This note was completed by: Gladys [facility] CONSULT PROGon 01-10-2021 CONSULT PROG HNO ID: [id number] Author: Tori Bravo APRN.[employer] Service: Neurology General Author Type: Nurse Practitioner Type: Consult Progress Note Filed: 01/10/2021 4:14 PM Note Text: NEUROLOGY CONSULT PROGRESS NOTE SERVICE DATE: 01/10/2021 SERVICE TIME: 4:00 PM Current Attending Provider: Selina Candelario MD Subjective Interval History: Today, Watson is improved. No muscle cramps/possible seizures events overnight. Objective Physical Examination: BP 114/64 Pulse 61 Temp 36.7 ?C (98.1 ?F) (Oral) Resp 21 Ht 180.3 cm (5' 11) Wt 83 kg (183 lb) SpO2 95% BMI 25.52 kg/m? General: Resting quietly in bed. In no apparent distress. Cooperative and pleasant. Cardiac: S1 ANDS2 auscultated. RRR. No noted murmurs. Resp: Unlabored. Clear to auscultation. No noted rales, rhonchi, or wheezing Abd: Soft to palpation. Bowel sounds active. Neurological: ? Mental Status: He is oriented to person, place and time and situation. He does follow commands. Cranial Nerves: CNII: Visual acuity normal, Visual gonzalez full to confrontation, No APD noted on exam CNIII, IV, : Pupils equal, round and reactive to light, full extraoccular movements without nystagmus CN V: Facial sensation intact bilaterally to fine touch, masseter 5/5 CN VII: Facial muscles symmetric and strong CN VIII: Hears finger rub well bilaterally CN IX: Gag Reflex Not Examined CN X: Palate elevates symmetrically CN XI: Full strength shoulder shrug bilaterally ? CN XII: Tongue protrusion full and midline Motor Exam: ? Muscle Tone: Normal ? Strength today in the bilateral extremities is 5/5 with very mild right leg weakness and ataxia. ? Sensation: Intact to proprioception and light touch. ? Coordination: Finger-to- nose-finger intact bilaterally and Vwtp-bg-qfci intact bilaterally. ? Gait: deferred New Labs: WBC (k/uL) Date Value 01/08/2021 4.68 12/24/2020 3.75 RBC (m/uL) Date Value 01/08/2021 4.83 12/24/2020 5.12 Platelet Count (k/uL) Date Value 01/08/2021 178 12/24/2020 185 BUN (mg/dL) Date Value 01/08/2021 14 12/24/2020 15 Creatinine (mg/dL) Date Value 01/08/2021 1.09 12/24/2020 1.05 CBC, Coags, BMP, Mg, Phos Recent Labs 01/08/21 2145 NA 139 K 4.0 CHLOR 102 CO2 26 GLUC 93 CA 9.5 Liver Function, Amylase, AND Lipase Recent Labs 01/08/21 2145 TPROT 6.7 ALB 4.6 ALT 27 AST 28 ALKPHOS 71 TBILI 0.4 BEM Reading: This bedside EEG was recorded from 0033 to 0555 on 01/09/21 and is consistent with a mild cortical dysfunction in the left parietal region. There were no epileptiform discharges or EEG seizures observed. This bedside EEG was reviewed from 0556 on 01/09/21 to 0616 on 01/10/21 ?and is suggestive of a mild cortical dysfunction in the right parietal region. There were no epileptiform discharges or EEG seizures observed. 20 min EEG: This EEG is consistent with a mild cortical dysfunction in the left parietal region. ?No epileptiform discharges or EEG seizures were seen during this recording. DATA: Diagnostic tests reviewed for today's visit: Most recent labs and imaging results. Impression/Recommendations 60 yr old?RH? gentleman with left parasagital lesion, likely meningioma, s/p GKRS ?In 5 fx completed 08/2020. Has had some right leg heaviness and numbness with some simple partial seizures initially. Was doing well on keppra 1000/1000. Since last Sunday has had about 7 episodes of right foot painful sensation leading to cramping in toes. One episdoe associated with clonic activity. He was in [place] and increased his keppra dose to 1500mg BID. Had to go to ED where he was given diazepam. Direct admitted to capture events and seizure semiology and to rule out painful muscle spasms as opposed to simple partial seizures. Today the patient is alert and oriented x 3. Speech is clear and appropriate. Face symmetrical. Noted very mild right LE weakness and mild ataxia. No muscle cramping events over night. Last Keppra dose of 1000 mg on 01/09/21 at 8 am. BEM unrevealing at this time, no EEG seizures or epileptiform activity. Will continue BEM until tomorrow and re-evaluate need for Keppra. Will continue to monitor. Plan: 1. Monitor Neuro Status 2. Continue BEM over night 3. Continue to hold Keppra PT REVIEWED WITH DR. VELASCO. PLAN OF CARE COLLABORATED WITH DR. VELASCO. Please page the on-call neuro consult pager [phone] for questions after 5 pm. SIGNATURE: Tori Bravo APRN.CNP PATIENT NAME: Watson Rodriguez DATE: January 10, 2021 TIME: 4:00 PM Pager [phone] [facility] NURSING PROGon 01-10-2021 NURSING PROG HNO ID: [id number] Author: Laurie Vasquez RN Service: ? Author Type: Registered Nurse Type: Nursing Progress Note Filed: 01/10/2021 9:24 AM Note Text: Nursing Progress Note Patient Name: Watson Rodriguez Patient Location: [place] [address] Daily Note: 0735 assumed care of patient. Pt resting in bed comfortably. AANDOx3, ELLISON. No immediate needs at this time, seizure pads and bed alarm on for safety This note was completed by: Laurie Vasquez [facility] NURSING PROG HNO ID: [id number] Author: Tara Daniel RN Service: Nursing Author Type: Registered Nurse Type: Nursing Progress Note Filed: 01/10/2021 3:28 AM Note Text: Nursing Progress Note Patient Name: Watson Rodriguez Patient Location: [id number] Daily Note: 0100 appears asleep and cmfortable 0320 assessed, denies discomfort. 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 : 1 - Never How confident are you filling out medical forms by yourself?: 1 - Extremely If Patient scores > 3 on either question, the following interventions were put into place:: Patient did not score > 3 on either question. Baseline Mental Status Prior to this Illness what was the patient's Baseline Mental Status?: Alert AND Oriented Prior to this illness, has anyone described the patient having any of the following behaviors?: Not Applicable Relationship of the informant to the patient:: Self Functional Status: Independent Equipment Prior to Admission: None Has the Patient Been in a Custodial Facility in the Past 30 days?: No SOCIAL: Living Arrangements: Home Lives With: Spouse Financial Resources: Employed Primary Contact: Extended Emergency Contact Information Primary Emergency Contact: YaniBraden peckki Address: [address] [place], [place] [id number] [place] [address] [facility] Relation: Spouse Supportive Patient Contact:: Yes Contact Resources: Family Caregiver AssessmentCaregiver is ready, willing and able to meet the patient's needs as recommended by the inter-professional team:: No Caregiver needed Does the patient have an acute stroke diagnosis, or has the patient had a stroke during this admission?: No Patient's transition needs and plan for meeting these needs: Plan is for the patient to return home with self care and follow up appointments as needed. Patient's perception of need for this admission: Admitted to evaluate symptoms. Medication Adherance I am convinced of the importance of my prescription medication: 0 - Agree Completely I worry that my prescription medication will do more harm than good to me : 0 - Disagree Completely I feel financially burdened by my [id number] expenses for my prescription medication:: 0 - Disagree Completely Risk Score: 0 Patient is categorized as: Low risk < 2 Are you interested in bedside delivery of your medications? No Is Patient Psychosocially Complex?: No ASSESSMENT AND PLAN: Medical Needs: Medical Needs: Cancer - active treatment/follow up (Hx of meningioma s/p GK in 08/2020) Psychosocial Needs: Psychosocial Needs: None FREEDOM OF CHOICE EXPLAINED: [place] of Choice Given: (N/A) POTENTIAL TRANSITION PLANS Home;To Be Determined Spoke with the patient to complete IA. Patient lives at home with his spouse (spouse is an RN) and was independent and working prior to admission. 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 Pt does not use an assistive device to ambulate, has no history of falls and receives no in home health care services. Pt states he works with Rene Hurtado from [facility] who lives him PT exercises that he does at home. Pt is compliant taking his medication and notes no difficulty affording food or medications. Pt has a history of Hx of meningioma s/p GK in 08/2020. He was admitted to for recurrent right leg seizures. Neuro consulted. CM team will continue to follow for DC planning needs. SIGNATURE: Vidhya Fang RN PATIENT NAME: Watson Rodriguez DATE: January 09, 2021 TIME: 9:36 PM PAGER/CONTACT #: [phone] [facility] CONSULTon 01-09-2021 CONSULT HNO ID: [id number] Author: Gris Neal MD Service: Neurology General Author Type: Physician Type: Consults Filed: 01/09/2021 1:15 PM Note Text: NEUROLOGY INITIAL INPATIENT CONSULTATION NOTE Please page [phone] for any concerns. Requesting Provider: Monica Woodruff [address] [place] [address] ASSESSMENT: 60 yr old RH gentleman with left parasagital lesion, likely meningioma, s/p GKRS In 5 fx completed 08/2020. Has had some right leg heaviness and numbness with some simple partial seizures initially. Was doing well on keppra 1000/1000. Since last Sunday has had about 7 episodes of right foot painful sensation leading to cramping in toes. One episdoe associated with clonic activity. He was in [place] and increased his keppra dose to 1500mg BID. Had to go to ED where he was given [facility]iazep[facility]. [facility] and to rule out painful muscle spasms as opposed to simple partial seizures. ? PLAN: -Our recommendations of care will be communicated by shared medical record. -BEM. Will continue for 48 hrs. Can considering discontinuing sooner if event captured. 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 , Disp: , Rfl: glucosamine/chondr amador A sod (OSTEO BI-FLEX ORAL), Take by mouth once daily., Disp: , Rfl: sildenafil (VIAGRA) 50 mg tablet, Take 50 mg by mouth as needed., Disp: , Rfl: Multivitamin capsule, Take 1 capsule by mouth once daily., Disp: , Rfl: clopidogrel (PLAVIX) 75 mg tablet, Take 75 mg by mouth once daily. , Disp: , Rfl: aspirin(ADULT LOW DOSE ASPIRIN 81 MG TAB, DELAYED RELEASE), Take one(1) tablet daily. , Disp: , Rfl: 0 Current Current Facility-Administered Medications Medication Dose Route Frequency Provider Last Rate Last Admin - NaCl 0.9% iv flush bag 20 mL INTRAVENOUS PRN Selina Candelario MD - sodium chloride 0.9 % (flush) 3-5 mL (BD POSIFLUSH) 3-5 mL INTRAVENOUS q 12 H Selina Candelario MD 5 mL at 01/09/21 0859 - ondansetron 4 mg tab(s) (ZOFRAN) 4 mg ORAL q 6 H PRN Selina Candelario MD Or - ondansetron (PF) 4 mg injection (ZOFRAN) 4 mg INTRAVENOUS q 6 H PRN Selina Candelario MD - polyethylene glycol 3350 17 g packet (MIRALAX, GLYCOLAX) 17 g ORAL DAILY PRN Selina Candelario MD - acetaminophen 650 mg tab(s) (TYLENOL) 650 mg ORAL q 6 H PRN Selina Candelario MD - levETIRAcetam 1,500 mg tab(s) (KEPPRA) 1,500 mg ORAL BID Selina Candelario MD 1,500 mg at 01/09/21 0858 - aspirin, enteric coated 81 mg tab(s) 81 mg ORAL DAILY Selina Candelario MD 81 mg at 01/09/21 0858 - clopidogrel 75 mg tab(s) (PLAVIX) 75 mg ORAL DAILY Selina Candelario MD 75 mg at 01/09/21 0858 - rosuvastatin 40 mg tab(s) (CRESTOR) 40 mg ORAL DAILY Selina Candelario MD 40 mg at 01/09/21 0859 Allergies: ALLERGIES No Known Allergies Review of Systems: Constitutional: No fever, No weight loss, No fatigue ENT: No ear problem, No nose problem, No throat problems Cardiovascular: No chest pain, No SOB, No palpitations, No leg swelling. Respiratory: No cough, No wheezing. Gastrointestinal: No abdominal pain, No dysphagia, No nausea, No vomiting, No constipation, No diarrhea, No blood in stools, No black stools Genitourinary: No trouble with bladder function, No dysuria Skin: No new rashes, No itching Psychiatric: No depression, No anxiety Hematologic: No enlarged lymph nodes Musculoskeletal: Please see HPI Neurologic: Please see HPI Physical Exam: Vital Signs: BP 101/62 Pulse (!) 58 Temp 36.5 ?C (97.7 ?F) (Oral) Resp 16 Ht 180.3 cm (5' 11) Wt 83 kg (183 lb) SpO2 98% BMI 25.52 kg/m? General Examination: Patient is in no distress. Sclerae and conjunctivae are clear. Oropharynx is normal. Abdomen is soft and nontender. Extremities have no edema. Neurological Examination: Mental Status: Alert and oriented to person, place, and time with fluent speech. Cranial Nerves: II: Visual gonzalez full to confrontational testing. III-IV-: Pupils equally round and reactive to light. Normal conjugate, extra-ocular eye movements in all directions of gaze. No nystagmus. V: Normal facial sensation. VII: Normal facial symmetry and movements. VIII: Normal hearing to finger rub (more content not included)... Normal [facility] Expedited [id number] 01-10-20 21 SARS-CoV-2 (COVID-19) RNA MADELEINE+probe Ql (Unsp spec) UPPER RESPIRATORY TRACT SWAB Normal [facility] SARS-CoV-2 (COVID-19) RNA MADELEINE+probe Ql (Unsp spec) Negative for COVID19 (SARS CoV2) by RT-PCR or equivalent method. Normal Negative for COVID19 (SARS CoV2) by RT-PCR or equivalent method. [facility] Comment on above: Result Comment: This test has been authorized by FDA under an Emergency Use Authorization (EUA). HISTORY PHYSICALon 1 HISTORY PHYSICAL HNO ID: [id number] Author: Selina Candelario MD Service: Hospital Medicine Author Type: Physician Type: HANDP Filed: 01/08/2021 10:41 PM Note Text: HOSPITAL MEDICINE HISTORY AND PHYSICAL NIGHT AND WEEKEND COVERAGE: Patient admitted to [facility] Hospitalist team [address] Selina Candelario From 7am - 5pm, please contact pager [phone] for patient issues. From 5pm - 7am, please contact the Night Hospitalist on pager [phone] for patient issues. Subjective Chief Complaint: Recurrent R leg seizures HPI: 60 yo with history of meningioma s/p GK in 08/2020 admitted with concern for recurrent R leg seizures. 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 He was in [place] for a presentation when he began having R leg painful seizures which he describes as cramping in the arch of his foot, curling of his toes, contraction in the leg and leg twitching. This started on Sunday morning at 2:30 and he had multiple such episodes (first one was 15 minutes, then following this were 2 minutes). These were similar to his prior seizures in November although he has never had an EEG recorded during these episodes. He had multiple episodes yesterday and even in between episodes, his R leg was so weak, he couldn't lift it off the bed and couldn't walk. His neurologist Dr Neal asked him to increase his Keppra to 1500mg bid. Due to continued episodes, he was seen in the ED in [place] yesterday doroteo and given a prescription for diazepam which he took last night and this morning. Last episode was this am. Currently his leg is feeling essentially back to normal. He has been directly admitted for BEM per Neurology PAST MEDICAL HISTORY Diagnosis Date - Benign neoplasm of colon - Benign neoplasm of meninges (HCC) 08/02/2020 PAST SURGICAL HISTORY Procedure Laterality Date - COLONOSCOP W/ OR W/O [facility] SPEC 10/29/2009 Colonoscopy FAMILY HISTORY Problem Relation Age of Onset - Colon Cancer Maternal Grandmother portion lower colon removed 60 years old, colostomy - Colon Cancer Mother ascending large intestine removed 2009 at 80 years old Social History Tobacco Use - Smoking status: Never Smoker - Smokeless tobacco: Never Used Substance Use Topics - Alcohol use: No - Drug use: No Past medical, social and family history have been personally reviewed and updated by me Medications: No current facility-administered medications on file prior to encounter. Current Outpatient Medications on File Prior to Encounter Medication Sig - Vitamin E, dl, acetate, (VITAMIN E) 400 unit capsule Take 1 capsule by mouth twice daily. - levETIRAcetam (KEPPRA) 500 mg tablet Take 2 tablets by mouth twice daily. - rosuvastatin (CRESTOR) 40 mg tablet Take 40 mg by mouth. - glucosamine/chondr amador A sod (OSTEO BI-FLEX ORAL) Take by mouth once daily. - sildenafil (VIAGRA) 50 mg tablet Take 50 mg by mouth as needed. - Multivitamin capsule Take 1 capsule by mouth once daily. - clopidogrel (PLAVIX) 75 mg tablet Take 75 mg by mouth once daily. - aspirin(ADULT LOW DOSE ASPIRIN 81 MG TAB, DELAYED RELEASE) Take one(1) tablet daily. Allergies: ALLERGIES No Known Allergies Review of Systems: No headaches, fevers, chills, chest pain, dyspnea, rashes. Remainder of 12 point ROS reviewed and is negative other than what is noted in the HPI Objective PHYSICAL EXAM There were no vitals taken for this visit. Physical Exam: Constitutional: alert and oriented HEENT: supple neck Cardiovascular: RRR, no murmur Respiratory: clear bilaterally Abdomen: +BS, nontender to palpation Musculoskeletal: active ROM intact, no edema or cyanosis Neuro: grossly intact, moving all extremities Skin: no new lesions Psychiatric: Fluent speech, stable mood and mentation Lines, Drains, and Airways None Reviewed lines, drains, AND airways. Need to be continued as above LABS Recent Labs 12/24/20 0759 WBC 3.75 HB 16.1 HCT 44.4 PLT 185 MCV 86.7 Recent Labs 12/24/20 0800 NA 137 K 3.9 CHLOR 104 CO2 24 BUN 15 CREAT 1.05 GLUC 95 ANION 9 CA 9.6 TPROT 6.8 ALB 4.5 TBILI 0.7 ALKPHOS 69 AST 20 ALT 21 No results for input(s): CK, CKMB, TROPT in the last 168 hours. Lab data personally reviewed by me IMAGING None Assessment/Plan 60 yo with history of meningioma s/p GK in 08/2020 admitted with concern for recurrent R leg seizures. 1. R leg cramping/weakness concerning for seizure - Neurology consulted - Continue Keppra 1500mg bid - BEM ordered per Dr Ángel Man. CAD s/p PCI in 2013: Continue aspirin, statin and Plavix Medication and Non-Pharmacologic VTE Prophylaxis/Anticoagulants Anticoagulant AND Antiplatelet Medications (From admission, onward) Start Dose Route Frequency Last Action Ordered Stop 01/09/21 0900 aspirin, enteric coated 81 mg tab(s) 81 mg ORAL DANIELLE (more content not included)... [facility] NURSING PROGon 01-09-2021 NURSING PROG HNO ID: [id number] Author: Ale Madrigal, RN Service: Nursing Author Type: Registered Nurse Type: Nursing Progress Note Filed: 01/09/2021 9:00 PM Note Text: Nursing Progress Note Patient Name: Watson Rodriguez Patient Location: [place] [id number] Daily Note:assumed care of pt. Bedside report given 2100: pt laying in bed AANDOx3 denies pain assessment unchanged from previous. Cont eeg connected at beside. Will cont to monitor This note was completed by: Ale Madrigal [facility] NURSING PROG HNO ID: [id number] Author: Laurie Vasquez RN Service: ? Author Type: Registered Nurse Type: Nursing Progress Note Filed: 01/09/2021 4:11 PM Note Text: Nursing Progress Note Patient Name: Watson Rodriguez Patient Location: [place] [id number] Daily Note: 0730 assumed care of patient, pt resting in bed comfortably. BEM on. No immediate needs at this time, all safety measures in place.will continue to monitor This note was completed by: Laurie Vasquez [facility] NURSING PROG HNO ID: [id number] Author: Fely Dalal, RN Service: Nursing Author Type: Registered Nurse Type: Nursing Progress Note Filed: 01/09/2021 2:44 AM Note Text: Nursing Progress Note Patient Name: Watson Rodriguez Patient Location: [place] [id number] Daily Note: AANDOx3 physical assessment completed. No report of pain or SOB. Safety checks implemented. Call brand in reach. [phone] left voicemail of EEG monitor needed. 2 attempt at IV unsuccessful. 2223 RR nurse notified on attempt to reach technology development intern. [phone] No seizure precaution orders, paged hospitalist. 0015 Hositalist at bedside, attempt at IV unsuccessful. RR nurse attempt at IV, successful. Seizure percautions implemented, padding applied to bed. Suction at bedside. This note was completed by: Fely Palacio [facility] CBCon 01-08-2021 Absolute nRBC <0.01 Normal <0.01 [facility] Erythrocyte distribution width (RBC) [Ratio] 11.5 % Normal 11.5-15.0 [facility] Hematocrit (Bld) [Volume fraction] 43.3 % Normal 39.0-51.0 [facility] Hemoglobin (Bld) [Mass/Vol] 15.2 g/dL Normal 13.0-17.0 [facility] MCH 31.5 pG Normal 26.0-34.0 [facility] MCHC (RBC) [Mass/Vol] 35.1 g/dL Normal 30.5-36.0 [facility] MCV (RBC) [Entitic vol] 89.6 fL Normal 80.0-100.0 [facility] Platelet mean volume (Bld) [Entitic vol] 8.9 fL Low 9.0-12.7 [facility] Platelets (Bld) [#/Vol] 178 10*3/uL Normal 150-400 [facility] RBC (Bld) [#/Vol] 4.83 10*6/uL Normal 4.20-6.00 [facility] WBC (Bld) [#/Vol] 4.68 10*3/uL Normal 3.70-11.00 [facility] CKon 01-08-2021 CK [Catalytic activity/Vol] 60 U/L Normal 51-298 [facility] CNPNon 01-08-2021 CNPN Telephone (HLPRAD) WATSON RODRIGUEZ ( ) 1960 M DNS Date Time Provider Department 01/08/21 GRIS NEAL During your visit today, we recorded the following information about you: Gris Neal MD 01/08/2021 10:59 AM Signed Spoke to patient, he has had multiple seizures in the last 48 hrs. Was at ED in [place], given some diazepam which stopped seizures for a little while. Had another event this am. His is driving him home to [place] today. I recommended he get admitted for contunuous eeg and clinical Monitoring. Called transfer ctr. They are working on getting him a direct admission bed and will contact them. In case they don't hear back from transfer ctr they should proceed to the ED for admission through there. He should be admitted and started on continuous eeg and will get evaluated by neurology at , neurology manager generation team aware. Meryl Neal MD Allergies As of Date: 01/08/2021 (No Known Allergies) Date Reviewed: 12/17/2020 Reviewed by: Mary Wolf LPN - Fully Assessed Reason for Visit: Clinical Update [1735] Prescriptions as of 01/08/2021 - Vitamin E, dl, acetate, (VITAMIN E) 400 unit capsule Take 1 capsule by mouth twice daily. - levETIRAcetam (KEPPRA) 500 mg tablet Take 2 tablets by mouth twice daily. - rosuvastatin (CRESTOR) 40 mg tablet Take 40 mg by mouth. - glucosamine/chondr amador A sod (OSTEO BI-FLEX ORAL) Take by mouth once daily. - sildenafil (VIAGRA) 50 mg tablet Take 50 mg by mouth as needed. - Multivitamin capsule Take 1 capsule by mouth once daily. - clopidogrel (PLAVIX) 75 mg tablet Take 75 mg by mouth once daily. - aspirin(ADULT LOW DOSE ASPIRIN 81 MG TAB, DELAYED RELEASE) Take one(1) tablet daily. Problem List As Of Date 01/08/2021 Noted Resolved Benign Neoplasm of Colon [D12.6] 10/29/2009 Special Screening for Malignant Neoplasms, [place]*10/29/2009 Personal history of colonic polyps [Z86.010] 11/23/2016 Inflamed external hemorrhoid [K64.4] 11/23/2016 Meningioma (HCC) [D32.9] 08/02/2020 Localized edema [R60.0] 10/22/2020 Brain edema (HCC) [G93.6] 11/10/2020 Coronary artery disease involving benton lopez*12/17/2020 Nonrheumatic aortic valve stenosis [I35.0] 12/17/2020 Mixed hyperlipidemia [E78.2] 12/17/2020 Encounter Status:Closed by GRIS NEAL on 01/08/21 Normal [facility] Comp Metabolic Panelon 01-08 Albumin [Mass/Vol] 4.6 g/dL Normal 3.9-4.9 [facility] ALP [Catalytic activity/Vol] 71 U/L Normal 38-113 [facility] ALT [Catalytic activity/Vol] 27 U/L Normal 10-54 [facility] Anion gap [Moles/Vol] 11 mmol/L Normal 9-18 [facility] AST [Catalytic activity/Vol] 28 U/L Normal 14-40 [facility] Bilirubin [Mass/Vol] 0.4 mg/dL Normal 0.2-1.3 [facility] Calcium [Mass/Vol] 9.5 mg/dL Normal 8.5-10.2 [facility] Chloride [Moles/Vol] 102 mmol/L Normal 97-105 [facility] CO2 [Moles/Vol] 26 mmol/L Normal 22-33 [facility] Creatinine [Mass/Vol] 1.09 mg/dL Normal 0.73-1.22 [facility] eGFR- Amer. >60 Normal [facility] eGFR-All Other Races >60 Normal [facility] Comment on above: Result Comment: eGFR (Estimated GFR) Units of measure: mL/min/1.73 meters squared eGFR is derived from the reexpressed MDRD Study equation using the following parameters: serum creatinine, age, gender and race. The creatinine assay has been calibrated to be traceable to IDMS. An eGFR <60 mL/min/1.73m2 for >3 months is consistent with chronic kidney disease. Refer to KDOQI guidelines for clinical interpretation. In patients with unstable renal function, e.g. those with acute kidney injury, the eGFR may not accurately reflect actual GFR. Glucose [Mass/Vol] 93 mg/dL Normal 74-99 [facility] Potassium [Moles/Vol] 4.0 mmol/L Normal 3.7-5.1 [facility] Protein [Mass/Vol] 6.7 g/dL Normal 6.3-8.0 [facility] Sodium [Moles/Vol] 139 mmol/L Normal 136-144 [facility] Urea nitrogen [Mass/Vol] 14 mg/dL Normal 9-24 [facility] [place] [place] 01-04-2021 OT Assessment Report Normal [facility] Occupational Therapy Community Mobility and IADL Report Performance Skills Evaluation Date: 01/04/[address] D[address] Assessment: 01/04/21 Demographics: Age: 60Y Gender: Male Summary of Results: (see attached report(s) for details) Strengths: Watson is independent with all self care and has been able to return to most home management tasks and leisure as well as 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; he has excellent support from his who is willing to provide ongoing supervision and assist as needed; he has excellent self awareness and insight into his current status and what to monitor for in the future; he has an excellent driving history; recently had formal eye exam; clinically he demonstrated functional vision including as required by [facility], oculomotor skills, visual perception, cognitive skills including alternating attention, physical skills, and average simulated brake reaction distance; during the behind the wheel portion, he demonstrated functional skills throughout including while driving in variety of environments including interstate highway and without any suggestions for improvement required. 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 and not yet advised in addition to not yet back working out at local recreation center although anxious to return to same which he plans to do once driving again; he does have driving needs with his job which he hopes to return to as well although aware that he will need to set limits with regards to time/distances traveled as his endurance continues to improve; clinically he demonstrated slight decrease for RLE strength as compared to LLE but very functional, still slight decrease in endurance and slight asymmetry with gait due to RLE weakness while otherwise no concerns; no concerns or suggestions for improvements needed during the behind the wheel portion of assessment. Recommendations: Patient may resume driving with the following recommendations: Physician approval. Drs. Neal and Liz should continue to monitor Watson's overall medical status and level of function as appropriate moving forward including with regards to safe operation of motor vehicle. If future concerns arise, recommend that he be seen at that time for reassessment of his skills. Restrictions. Corrective lenses should be worn when driving; do not drive when not feeling well; take frequent breaks when longer distance driving (work or leisure); avoid driving when extreme weather conditions. Practice. Recommending [facility] PATIENT NAME: WATSON RODRIGUEZ [address] [place] MEDICAL REC #: [id number] [place] [address] ADMIT DATE: SERVICE DATE: 01/04/21 Occupational Therapy Assessment ATTENDING KARIN: Gris Neal MD supervised practice initially done with in vehicle to assure that both Watson and his feel comfortable with his skills for returning to driving prior to his return to driving on his own (i.e. should go out 3 or 4 times prior to his driving on his own again). This therapist will provide Watson with information regarding safe driving skills, crash avoidance, tips for monitoring driving, and when to stop driving for his reference. Vehicle and Equipment Needs: N/A Additional Comments: Based on Watson's overall performance on this assessment, this therapist feels confident in recommending that he is able to return to safe operation of a motor vehicle while following the restrictions indicated in this report. This therapist expects that he poses minimal risk of being involved in a crash which is consistent with the majority of all drivers on the road and with this therapist feeling very comfortable to share the roads with him. Date: 01/10/21 Occupational Therapist/Vice President Sales Transportation Planning Engineer signature Please Note: The results and recommendations included in the Vice President Sales Evaluation Report are based on the patient's performance during the period of the evaluation and should not be relied on as absolute predictors of future performance. The conclusions and recommendations in this report are based, in part, upon the medical information available at the time. 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 If the patient's physical and mental status remains the same as during the evaluation period, the recommendations in the report should be considered valid for 6 months. Beyond that (more content not included)... Normal [facility] Louie Saab 06-14-2020 CNCO Letter Text [facility] Jaclyn 06-14-2020 MONON Telephone (AGSPINE3) WATSON RODRIGUEZ ([id number]) 1960 M DNS Date Time Provider Department 06/14/20 GREGOR KAUR [id number] During your visit today, we recorded the following information about you: Macrina Cary 06/14/2020 12:58 PM Signed FAST TRACK from Dr. Mendoza office, please review records placed on your desk and place precert order. I called and spoke with patient he is leaving 2.13-07.10.20 for out of town and would like to have the procedure done before then. Patient is on plavix and takes 81mg asa. The Anticoag Management letter has been sent to the [facility] ph. [phone] fax# [phone] Dr. Kasey Cary Allergies As of Date: 06/14/2020 (No Known Allergies) Date Reviewed: 11/23/2016 Reviewed by: Jackelyn Jara MA - Fully Assessed Reason for Visit: Orders [681] Prescriptions as of 06/14/2020 Sig: CLOPIDOGREL 75 MG TABLET Take 40 mg by mouth once wiley* LOVASTATIN 40 MG TABLET Take 40 mg by mouth daily at * * ADULT LOW DOSE ASPIRIN 81 MG * Take one(1) tablet daily. Problem List As Of Date 06/14/2020 Noted Resolved Benign Neoplasm of Colon [D12.6] 10/29/2009 Special Screening for Malignant Neoplasms, [place]*10/29/2009 Personal history of colonic polyps [Z86.010] 11/23/2016 Inflamed external hemorrhoid [K64.4] 11/23/2016 Encounter Status:Closed by MACRINA CARY on 06/14/20 [facility] Office Visit: post c-scope/ hemorrhoidon 03-05-2017 Documentation of current medications (procedure) Done Invalid Interpretation Code [employer] Work Phone: Fall risk assessment No Invalid Interpretation Code [employer] Work Phone: Tobacco use [facility]PH[facility] Never smoker Invalid Interpretation Code [employer] Work Phone: Lab Report: Basic Metabolic Profile (BMP)on 10-05-2015 Anion gap 1 mmol/L Low 5-15 [employer] Work Phone: BUN/Creatinine Ratio 15.4 RATIO Invalid Interpretation Code 10-20 [employer] Work Phone: [phone] Calcium 8.4 mg/dL Low 8.5-10.1 [employer] Work Phone: [phone] Chloride 106 mmol/L Invalid Interpretation Code 98-107 [employer] Work Phone: [phone] CO2 30.0 mmol/L Invalid Interpretation Code 21.0-32.0 [employer] Work Phone: [phone] Creatinine 1.17 mg/dL Invalid Interpretation Code 0.70-1.30 [employer] Work Phone: [phone] eGFR (non-black) 83 mL/min/{1.73_m2} Invalid Interpretation Code >60 [employer] Work Phone: [phone] eGFR (non-black) 68 mL/min/{1.73_m2} Invalid Interpretation Code >60 [employer] Work Phone: [phone] Glucose mass conc 87 mg/dL Invalid Interpretation Code 70-110 [employer] Work Phone: [phone] Potassium molar conc 4.3 mmol/L Invalid Interpretation Code 3.5-5.1 [employer] Work Phone: [phone] Sodium 137 mmol/L Invalid Interpretation Code 136-145 [employer] Work Phone: [phone] Urea nitrogen 18 mg/dL Invalid Interpretation Code 7-18 [employer] Work Phone: [phone] Lab Report: Lipid Profileon 10-05-2015 Cholesterol 126 mg/dL Invalid Interpretation Code 200 [employer] Work Phone: [phone] HDL Cholesterol 45 mg/dL Invalid Interpretation Code [employer] Work Phone: [phone] LDL Cholesterol 71 mg/dL Invalid Interpretation Code 0-130 [employer] Work Phone: [phone] Triglyceride 50 mg/dL Invalid Interpretation Code [employer] Work Phone: [phone] very low density lipoproteins 10 mg/dL Invalid Interpretation Code 5-40 [facility] Work Phone: [phone] Lab Report: Liver Profileon 10-05-2015 Alanine aminotransferase (ALT) 44 U/L Invalid Interpretation Code 12-78 [employer] Work Phone: [phone] Albumin 4.0 g/dL Invalid Interpretation Code 3.4-5.0 [employer] Work Phone: [phone] Alkaline phosphatase (ALP) 68 U/L Invalid Interpretation Code 50-136 [employer] Work Phone: [phone] Aspartate aminotransferase (AST) 30 U/L Invalid Interpretation Code 15-37 [employer] Work Phone: [phone] Bilirubin (direct) 0.20 mg/dL Invalid Interpretation Code 0.00-0.30 [employer] Work Phone: [phone] Bilirubin (total) 0.90 mg/dL Invalid Interpretation Code 0.20-1.00 [employer] Work Phone: [phone] Globulin 3.4 g/dL Invalid Interpretation Code 2.3-3.5 [employer] Work Phone: [phone] Protein 7.4 g/dL Invalid Interpretation Code 6.4-8.2 [employer] Work Phone: [phone] Lab Report: PSA,Total - Marisela al Screenon 10-05-2015 PSA,TOT SCREEN 1.56 ng/mL Invalid Interpretation Code 0.00-4.00 [facility] Phone: [phone] Lab Report: PSA,Total - Marisela al Screenon 07-15-2014 PSA,TOT SCREEN 1.37 ng/mL Invalid Interpretation Code 0.00-4.00 [facility] Phone: [phone] Office Visiton 05-28-2014 cardiac risk group C Invalid Interpretation Code [facility]: [phone] General cardiovascular disease 10Y risk [#] Mcwilliams.D'Agosti no N/A Invalid Interpretation Code [facility]: [phone] Replaced Document: [facility] E CG Observationson 02-14-2013 EKG QRS axis 35 deg Invalid Interpretation Code [facility]: [phone] Interpretation Sinus Bradycardia -A nterior infarct -age undetermined . - Precordial T-wave abnormality Nonspecific T-abnormality . ABNORMAL Invalid Interpretation Code [facility]: [phone] P [place] 53 deg Invalid Interpretation Code [facility] Work Phone: [phone] TX Interval 148 ms Invalid Interpretation Code [facility] Work Phone: [phone] Pulse (Heart Rate) 59 /min Invalid Interpretation Code [facility] Work Phone: [phone] Pulse (Heart Rate) 416 ms Invalid Interpretation Code [facility] Work Phone: [phone] QRS Duration 94 ms Invalid Interpretation Code [facility] Work Phone: [phone] QT Interval new path ms Invalid Interpretation Code [facility] Work Phone: [phone] T [place] 76 deg Invalid Interpretation Code [facility] Work Phone: [phone] 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 Erythrocyte distribution width Auto Ratio (RBC) 12.3 % Invalid Interpretation Code [facility] Work Phone: [phone] Erythrocytes (RBC) 4.31 10*6/uL Invalid Interpretation Code [facility] Work Phone: [phone] Hematocrit (HCT) 39.5 % Invalid Interpretation Code [facility] Work Phone: [phone] Hemoglobin mass conc (Bld) 13.4 g/dL Invalid Interpretation Code [facility] Work Phone: [phone] Magnesium 1.8 mg/dL Invalid Interpretation Code [facility] Work Phone: [phone] MCH 31.2 pg Invalid Interpretation Code [facility] Work Phone: [phone] MCHC mass conc (RBC) 34.0 g/dL Invalid Interpretation Code [facility] Work Phone: [phone] MCV 91.8 fL Invalid Interpretation Code [facility] Work Phone: [phone] Platelets 143 10*3/mm3 Invalid Interpretation Code [facility] Work Phone: [phone] WBC (Leukocytes) 6.1 10*3/uL Invalid Interpretation Code [facility] Work Phone: [phone] Vital Signs Date Time Vital Sign Value Performing Clinician Facility 12-31-2024 14:12-0400 Body height 180.3 cm Lakisha Junior MD Work Phone: [facility] 12-31-2024 14:12-0400 Body mass index (BMI) [Ratio] 25.8 kg/m2 Lakisha Junior MD Work Phone: [facility] 12-31-2024 14:12-0400 Body weight 83.92 kg Lakisha Junior MD Work Phone: [facility] 12-31-2024 14:12-0400 Diastolic blood pressure 68 mm[Hg] Lakisha Junior MD Work Phone: [facility] 12-31-2024 14:12-0400 Heart rate 63 /min Lakisha Junior MD Work Phone: [facility] 12-31-2024 14:12-0400 SaO2% (BldA) [Mass fraction] 96 % Lakisha Junior MD Work Phone: [facility] 12-31-2024 14:12-0400 Systolic blood pressure 110 mm[Hg] Lakisha Junior MD Work Phone: [facility] 12-01-2024 12:54-0400 Body height 180.3 cm Davion Samayoa MD Work Phone: [facility] 12-01-2024 12:54-0400 Body mass index (BMI) [Ratio] 26.22 kg/m2 Davion Samayoa MD Work Phone: [facility] 12-01-2024 12:54-0400 Body weight 85.28 kg Davion Samayoa MD Work Phone: [facility] 12-01-2024 12:54-0400 Diastolic blood pressure 56 mm[Hg] Davion Samayoa MD Work Phone: [facility] 12-01-2024 12:54-0400 Heart rate 65 /min Davion Samayoa MD Work Phone: [facility] 12-01-2024 12:54-0400 Respiratory rate 12 /min Davion Samayoa MD Work Phone: [facility] 12-01-2024 12:54-0400 SaO2% (BldA) [Mass fraction] 97 % Davion Samayoa MD Work Phone: [facility] 12-01-2024 12:54-0400 Systolic blood pressure 116 mm[Hg] Davion Samayoa MD Work Phone: [facility] 10-22-2024 14:39-0400 Body mass index (BMI) [Ratio] 25.24 kg/m2 Breanne Whittington MD Work Phone: [facility] 10-22-2024 14:39-0400 Body weight 82.1 kg Breanne Whittington MD Work Phone: [facility] 10-22-2024 14:39-0400 Diastolic blood pressure 44 mm[Hg] Breanne Whittington MD Work Phone: [facility] 10-22-2024 14:39-0400 Heart rate 60 /min Breanne Whittington MD Work Phone: [facility] 10-22-2024 14:39-0400 SaO2% (BldA) [Mass fraction] 96 % Breanne Whittington MD Work Phone: [facility] 10-22-2024 14:39-0400 Systolic blood pressure 96 mm[Hg] Breanne Whittington MD Work Phone: [facility] 09-17-2024 13:03-0400 Body mass index (BMI) [Ratio] 25.66 kg/m2 Lakisha Jacob [employer] Work Phone: [facility] 09-17-2024 13:03-0400 Body weight 83.46 kg Lakisha Jacob [employer] Work Phone: [facility] 09-17-2024 13:03-0400 Diastolic blood pressure 65 mm[Hg] Lakisha Jacob [employer] Work Phone: [facility] 09-17-2024 13:03-0400 Heart rate 60 /min Lakisha Jacob [employer] Work Phone: [facility] 09-17-2024 13:03-0400 Respiratory rate 16 /min Lakisha Jacob [employer] Work Phone: [facility] 09-17-2024 13:03-0400 SaO2% (BldA) [Mass fraction] 96 % Lakisha Jacob [employer] Work Phone: [facility] 09-17-2024 13:03-0400 Systolic blood pressure 106 mm[Hg] Lakisha Jacob [employer] Work Phone: [facility] 06-09-2024 12:10-0500 Diastolic blood pressure 69 mm[Hg] Orquidea Ley MD Work Phone: [facility] 06-09-2024 12:10-0500 Heart rate 45 /min Orquidea Ley MD Work Phone: [facility] 06-09-2024 12:10-0500 SaO2% (BldA) [Mass fraction] 98 % Orquidea Ley MD Work Phone: [facility] 06-09-2024 12:10-0500 Systolic blood pressure 133 mm[Hg] Orquidea Ley MD Work Phone: [facility] 06-09-2024 10:42-0500 Body height 180.3 cm Orquidea Ley MD Work Phone: [facility] 06-09-2024 10:42-0500 Body mass index (BMI) [Ratio] 25.38 kg/m2 Orquidea Ley MD Work Phone: [facility] 06-09-2024 10:42-0500 Body temperature 97.2 [degF] Orquidea Ley MD Work Phone: [facility] 06-09-2024 10:42-0500 Body weight 82.56 kg Orquidea Ley MD Work Phone: [facility] 06-09-2024 10:42-0500 Respiratory rate 18 /min Orquidea Ley MD Work Phone: [facility] 04-25-2024 10:38-0500 Body mass index (BMI) [Ratio] 26.36 kg/m2 Breanne Whittington MD Work Phone: [facility] 04-25-2024 10:38-0500 Body weight 85.73 kg Breanne Whittington MD Work Phone: [facility] 04-25-2024 10:38-0500 Diastolic blood pressure 62 mm[Hg] Breanne Whittington MD Work Phone: [facility] 04-25-2024 10:38-0500 Heart rate 62 /min Breanne Whittington MD Work Phone: [facility] 04-25-2024 10:38-0500 SaO2% (BldA) [Mass fraction] 96 % Breanne Whittington MD Work Phone: [facility] 04-25-2024 10:38-0500 Systolic blood pressure 92 mm[Hg] Breanne Whittington MD Work Phone: [facility] 04-18-2024 09:44-0500 Body mass index (BMI) [Ratio] 25.94 kg/m2 Fouzia Suppan [employer] Work Phone: [facility] 04-18-2024 09:44-0500 Body temperature 97.11 [degF] Fouzia Suppan [employer] Work Phone: [facility] 04-18-2024 09:44-0500 Body weight 84.37 kg Fouzia Suppan [employer] Work Phone: [facility] 04-18-2024 09:44-0500 Diastolic blood pressure 72 mm[Hg] Fouzia Suppan [employer] Work Phone: [facility] 04-18-2024 09:44-0500 Heart rate 61 /min Fouzia Suppan [employer] Work Phone: [facility] 04-18-2024 09:44-0500 Respiratory rate 16 /min Fouzia Suppan [employer] Work Phone: [facility] 04-18-2024 09:44-0500 SaO2% (BldA) [Mass fraction] 97 % Fouzia Suppan [employer] Work Phone: [facility] 04-18-2024 09:44-0500 Systolic blood pressure 124 mm[Hg] Fouzia Amado APRN.[employer] Work Phone: [facility] 12-07-2023 10:37-0400 Body height 180.3 cm Orquidea Ley MD Work Phone: [facility] 12-07-2023 10:37-0400 Body mass index (BMI) [Ratio] 26.22 kg/m2 Orquidea Ley MD Work Phone: [facility] 12-07-2023 10:37-0400 Body temperature 98.2 [degF] Orquidea Ley MD Work Phone: [facility] 12-07-2023 10:37-0400 Body weight 85.28 kg Orquidea Ley MD Work Phone: [facility] 12-07-2023 10:37-0400 Diastolic blood pressure 76 mm[Hg] Orquidea Ley MD Work Phone: [facility] 12-07-2023 10:37-0400 Heart rate 61 /min Orquidea Ley MD Work Phone: [facility] 12-07-2023 10:37-0400 SaO2% (BldA) [Mass fraction] 97 % Orquidea Ley MD Work Phone: [facility] 12-07-2023 10:37-0400 Systolic blood pressure 128 mm[Hg] Orquidea Ley MD Work Phone: [facility] 12-06-2023 09:39-0400 Body mass index (BMI) [Ratio] 26.41 kg/m2 Danielle Khan PA-C Work Phone: [facility] 12-06-2023 09:39-0400 Body weight 85.9 kg Danielle QUINTANILLA-C Work Phone: [facility] 12-06-2023 09:39-0400 Diastolic blood pressure 58 mm[Hg] Danielle Khan PA-C Work Phone: [facility] 12-06-2023 09:39-0400 Heart rate 62 /min Danielle Khan PA-C Work Phone: [facility] 12-06-2023 09:39-0400 SaO2% (BldA) [Mass fraction] 98 % Danielle Khan PA-C Work Phone: [facility] 12-06-2023 09:39-0400 Systolic blood pressure 110 mm[Hg] Danielle Khan PA-C Work Phone: [facility] 10-31-2023 10:50-0400 Body height 180.3 cm Breanne Whittington MD Work Phone: [facility] 10-31-2023 10:50-0400 Body mass index (BMI) [Ratio] 25.94 kg/m2 Breanne Whittington MD Work Phone: [facility] 10-31-2023 10:50-0400 Body weight 84.37 kg Breanne Whittington MD Work Phone: [facility] 10-31-2023 10:50-0400 Diastolic blood pressure 58 mm[Hg] Breanne Whittington MD Work Phone: [facility] 10-31-2023 10:50-0400 Heart rate 59 /min Breanne Whittington MD Work Phone: [facility] 10-31-2023 10:50-0400 SaO2% (BldA) [Mass fraction] 99 % Breanne Whittington MD Work Phone: [facility] 10-31-2023 10:50-0400 Systolic blood pressure 104 mm[Hg] Breanne Whittington MD Work Phone: [facility] 09-11-2023 13:38-0400 Body height 180.3 cm Miguelangel Spence APRN.[employer] Work Phone: [facility] 09-11-2023 13:38-0400 Body mass index (BMI) [Ratio] 25.94 kg/m2 Miguelangel Spence APRN.[employer] Work Phone: [facility] 09-11-2023 13:38-0400 Body temperature 96.4 [degF] Christen Cheuvront [employer] Work Phone: [facility] 09-11-2023 13:38-0400 Body weight 84.37 kg Christen Cheuvront [employer] Work Phone: [facility] 09-11-2023 13:38-0400 Diastolic blood pressure 67 mm[Hg] Christen Cheuvront [employer] Work Phone: [facility] 09-11-2023 13:38-0400 Heart rate 49 /min Christen Cheuvront [employer] Work Phone: [facility] 09-11-2023 13:38-0400 Respiratory rate 20 /min Christen Cheuvront [employer] Work Phone: [facility] 09-11-2023 13:38-0400 SaO2% (BldA) [Mass fraction] 96 % [facility] [employer] Work Phone: [facility] 09-11-2023 13:38-0400 Systolic blood pressure 119 mm[Hg] Christen Cheuvront [employer] Work Phone: [facility] 09-10-2023 14:54-0400 Body mass index (BMI) [Ratio] 26.01 kg/m2 Yancy Centeno MD Work Phone: [facility] 09-10-2023 14:54-0400 Body temperature 97.59 [degF] Yancy Centeno MD Work Phone: [facility] 09-10-2023 14:54-0400 Body weight 84.6 kg Yancy Centeno MD Work Phone: [facility] Comment on above: with shoes 09-10-2023 14:54-0400 Diastolic blood pressure 59 mm[Hg] Yancy Centeno MD Work Phone: [facility] 09-10-2023 14:54-0400 Heart rate 103 /min Yancy Centeno MD Work Phone: [facility] 09-10-2023 14:54-0400 Respiratory rate 18 /min Yancy Centeno MD Work Phone: [facility] 09-10-2023 14:54-0400 SaO2% (BldA) [Mass fraction] 97 % Yancy Centeno MD Work Phone: [facility] 09-10-2023 14:54-0400 Systolic blood pressure 118 mm[Hg] Yancy Centeno MD Work Phone: [facility] 03-29-2023 13:24-0500 Body weight 86.09 kg Nishant Mcqueen MD Work Phone: [facility] 03-29-2023 13:24-0500 Diastolic blood pressure 64 mm[Hg] Nishant Mcqueen MD Work Phone: [facility] 03-29-2023 13:24-0500 Heart rate 68 /min Nishant Mcqueen MD Work Phone: [facility] 03-29-2023 13:24-0500 Respiratory rate 16 /min Nishant Mcqueen MD Work Phone: [facility] 03-29-2023 13:24-0500 SaO2% (BldA) [Mass fraction] 97 % Nishant Mcqueen MD Work Phone: [facility] 03-29-2023 13:24-0500 Systolic blood pressure 108 mm[Hg] Nishant Mcqueen MD Work Phone: [facility] 03-22-2023 13:22-0500 Body height 180.3 cm Talia Charlton MD Work Phone: [facility] 03-22-2023 13:22-0500 Body mass index (BMI) [Ratio] 26.16 kg/m2 Talia Charlton MD Work Phone: [facility] 03-22-2023 13:22-0500 Body temperature 97.81 [degF] Talia Charlton MD Work Phone: [facility] 03-22-2023 13:22-0500 Body weight 85.09 kg Talia Charlton MD Work Phone: [facility] 03-22-2023 13:22-0500 Diastolic blood pressure 62 mm[Hg] Talia Charlton MD Work Phone: [facility] 03-22-2023 13:22-0500 Heart rate 67 /min Talia Charlton MD Work Phone: [facility] 03-22-2023 13:22-0500 Respiratory rate 16 /min Talia Charlton MD Work Phone: [facility] 03-22-2023 13:22-0500 SaO2% (BldA) [Mass fraction] 95 % Talia Charlton MD Work Phone: [facility] 03-22-2023 13:22-0500 Systolic blood pressure 125 mm[Hg] Talia Charlton MD Work Phone: [facility] 03-19-2023 14:37-0500 Body height 180.3 cm Christen Cheuvront [employer] Work Phone: [facility] 03-19-2023 14:37-0500 Body temperature 97.59 [degF] Christen Cheuvront [employer] Work Phone: [facility] 03-19-2023 14:37-0500 Body weight 84.82 kg Christen Cheuvront [employer] Work Phone: [facility] 03-19-2023 14:37-0500 Diastolic blood pressure 68 mm[Hg] Christen Cheuvront [employer] Work Phone: [facility] 03-19-2023 14:37-0500 Heart rate 60 /min Christen Cheuvront [employer] Work Phone: [facility] 03-19-2023 14:37-0500 Respiratory rate 20 /min Miguelangel Jackandrés [employer] Work Phone: [facility] 03-19-2023 14:37-0500 SaO2% (BldA) [Mass fraction] 98 % Miguelangel Spence [employer] Work Phone: [facility] 03-19-2023 14:37-0500 Systolic blood pressure 121 mm[Hg] Miguelangel Jackandrés [employer] Work Phone: [facility] 02-01-2023 09:40-0400 Body height 180.3 cm Napoleon Pappas MD Work Phone: [facility] 02-01-2023 09:40-0400 Body mass index (BMI) [Ratio] 25.93 kg/m2 Napoleon Pappas MD Work Phone: [facility] 02-01-2023 09:40-0400 Body temperature 97.7 [degF] Napoleon Pappas MD Work Phone: [facility] 02-01-2023 09:40-0400 Body weight 84.32 kg Napoleon Pappas MD Work Phone: [facility] 02-01-2023 09:40-0400 Diastolic blood pressure 67 mm[Hg] Napoleon Pappas MD Work Phone: [facility] 02-01-2023 09:40-0400 Heart rate 61 /min Napoleon Pappas MD Work Phone: [facility] 02-01-2023 09:40-0400 SaO2% (BldA) [Mass fraction] 96 % Napoleon Pappas MD Work Phone: [facility] 02-01-2023 09:40-0400 Systolic blood pressure 118 mm[Hg] Napoleon Pappas MD Work Phone: [facility] 01-16-2023 13:00-0400 Body temperature 97.1 [degF] Dr. Breanne Whittington Work Phone: 4(693)903-802479 [place] [address] 01-16-2023 13:00-0400 Diastolic blood pressure 72 mm[Hg] Dr. Breanne Whittington Work Phone: 7(636)802-083243 [address] 01-16-2023 13:00-0400 Heart rate 46 /min Dr. Breanne Whittington Work Phone: 4(419)654-726179 [place] [address] 01-16-2023 13:00-0400 Respiratory rate 18 /min Dr. Breanne Whittington Work Phone: 9(431)488-820577 [place] [address] 01-16-2023 13:00-0400 SaO2% (BldA) [Mass fraction] 98 % Dr. Breanne Whittington Work Phone: 7(752)681-233743 [address] 01-16-2023 13:00-0400 Systolic blood pressure 121 mm[Hg] Dr. Breanne Whittington Work Phone: 0(025)728-935443 [address] 01-16-2023 09:57-0400 Body height 180.[address] Breanne Whittington Work Phone: 1(654)298-656177 [place] [address] 01-16-2023 09:57-0400 Body mass index (BMI) [Ratio] 25.9 kg/m2 Dr. Breanne Whittington Work Phone: 3(632)[phone] [address] 01-16-2023 09:57-0400 Body weight 84.[address] Breanne Whittington Work Phone: 3(826)[phone] [address] 01-04-2023 09:41-0400 Body mass index (BMI) [Ratio] 25.9 kg/m2 Dr. Breanne Whittington Work Phone: 2(969)222-299243 [address] 01-04-2023 09:41-0400 Body temperature 98.3 [degF] Dr. Breanne Whittington Work Phone: 5(610)373-997079 [place] [address] 01-04-2023 09:41-0400 Body weight 84.[address] Breanne Whittington Work Phone: [facility] 01-04-2023 09:41-0400 Diastolic blood pressure 72 mm[Hg] Dr. Breanne Whittington Work Phone: [facility] 01-04-2023 09:41-0400 Heart rate 64 /min Dr. Breanne Whittington Work Phone: [facility] 01-04-2023 09:41-0400 Respiratory rate 16 /min Dr. Breanne Whittington Work Phone: [facility] 01-04-2023 09:41-0400 SaO2% (BldA) [Mass fraction] 98 % Dr. Breanne Whittington Work Phone: [facility] 01-04-2023 09:41-0400 Systolic blood pressure 121 mm[Hg] Dr. Breanne Whittington Work Phone: [facility] 12-26-2022 14:01-0400 Body height 180.3 cm Michelle [place] PA-C Work Phone: [facility] 12-26-2022 14:01-0400 Body temperature 98.1 [degF] Michelle Joseph PA-C Work Phone: [facility] 12-26-2022 14:01-0400 Body weight 85.19 kg Michelle Joseph PA-C Work Phone: [facility] 12-26-2022 14:01-0400 Diastolic blood pressure 74 mm[Hg] Michelle Joseph PA-C Work Phone: [facility] 12-26-2022 14:01-0400 Heart rate 69 /min Michelle Joseph PA-C Work Phone: [facility] 12-26-2022 14:01-0400 SaO2% (BldA) [Mass fraction] 97 % Michelle Joseph PA-C Work Phone: [facility] 12-26-2022 14:01-0400 Systolic blood pressure 120 mm[Hg] Michelle [place] PA-C Work Phone: [facility] 11-20-2022 14:48-0400 Body height 177.8 cm Christen Marcieuvront [employer] Work Phone: [facility] 11-20-2022 14:48-0400 Body temperature 96.91 [degF] Miguelangel Jackuvront [employer] Work Phone: [facility] 11-20-2022 14:48-0400 Body weight 84.82 kg Christen Marcieuvront [employer] Work Phone: [facility] 11-20-2022 14:48-0400 Diastolic blood pressure 70 mm[Hg] Christen Cheuvront [employer] Work Phone: [facility] 11-20-2022 14:48-0400 Heart rate 60 /min Jereden Marcieuvront [employer] Work Phone: [facility] 11-20-2022 14:48-0400 Respiratory rate 20 /min Christen Marcieuvront [employer] Work Phone: [facility] 11-20-2022 14:48-0400 SaO2% (BldA) [Mass fraction] 94 % [facility] [employer] Work Phone: [facility] 11-20-2022 14:48-0400 Systolic blood pressure 121 mm[Hg] Miguelangel Jackuvront [employer] Work Phone: [facility] 11-07-2022 14:56-0400 Body mass index (BMI) [Ratio] 26.4 kg/m2 Dr. Breanne Whittington Work Phone: [facility] 11-07-2022 14:56-0400 Body weight 86.[address] Breanne Whittington Work Phone: [facility] 11-07-2022 14:56-0400 Diastolic blood pressure 75 mm[Hg] Dr. Breanne Whittington Work Phone: [facility] 11-07-2022 14:56-0400 Heart rate 59 /min Dr. Breanne Whittington Work Phone: [facility] 11-07-2022 14:56-0400 Respiratory rate 18 /min Dr. Breanne Whittington Work Phone: [facility] 11-07-2022 14:56-0400 SaO2% (BldA) [Mass fraction] 97 % Dr. Breanne Whittington Work Phone: [facility] 11-07-2022 14:56-0400 Systolic blood pressure 126 mm[Hg] Dr. Breanne Whittington Work Phone: [facility] 08-02-2022 14:39-0400 Body temperature 97.7 [degF] Yancy Centeno MD Work Phone: [facility] 08-02-2022 14:39-0400 Body weight 84.82 kg Yancy Centeno MD Work Phone: [facility] 08-02-2022 14:39-0400 Diastolic blood pressure 74 mm[Hg] Yancy Centeno MD Work Phone: [facility] 08-02-2022 14:39-0400 Heart rate 59 /min Yancy Centeno MD Work Phone: [facility] 08-02-2022 14:39-0400 Respiratory rate 18 /min Yancy Centeno MD Work Phone: [facility] 08-02-2022 14:39-0400 SaO2% (BldA) [Mass fraction] 99 % Yancy Centeno MD Work Phone: [facility] 08-02-2022 14:39-0400 Systolic blood pressure 131 mm[Hg] Yancy Centeno MD Work Phone: [facility] 05-30-2022 15:32-0500 Diastolic blood pressure 80 mm[Hg] Breanne Whittington MD Work Phone: [facility] 05-30-2022 15:32-0500 Systolic blood pressure 136 mm[Hg] Breanne Whittington MD Work Phone: [facility] 05-30-2022 15:06-0500 Body height 177.8 cm Breanne Whittington MD Work Phone: [facility] 05-30-2022 15:06-0500 Body weight 84.91 kg Breanne Whittington MD Work Phone: [facility] 05-30-2022 15:06-0500 Heart rate 65 /min Breanne Whittington MD Work Phone: [facility] 05-30-2022 15:06-0500 SaO2% (BldA) [Mass fraction] 98 % Breanne Whittington MD Work Phone: [facility] 04-10-2022 15:03-0500 Body temperature 97.39 [degF] Chair H&N/Gi Work Phone: [facility] 04-10-2022 15:03-0500 Diastolic blood pressure 72 mm[Hg] Chair H&N/Gi Work Phone: [facility] 04-10-2022 15:03-0500 Heart rate 55 /min Chair H&N/Gi Work Phone: [facility] 04-10-2022 15:03-0500 Respiratory rate 18 /min Chair H&N/Gi Work Phone: [facility] 04-10-2022 15:03-0500 Systolic blood pressure 130 mm[Hg] Chair H&N/Gi Work Phone: [facility] 03-31-2022 13:47-0500 Body height 177.8 cm Breanne Whittington MD Work Phone: [facility] 03-31-2022 13:47-0500 Body weight 85.82 kg Breanne Whittington MD Work Phone: [facility] 03-31-2022 13:47-0500 Diastolic blood pressure 72 mm[Hg] Breanne Whittington MD Work Phone: [facility] 03-31-2022 13:47-0500 Heart rate 63 /min Breanne Whittington MD Work Phone: [facility] 03-31-2022 13:47-0500 SaO2% (BldA) [Mass fraction] 98 % Breanne Whittington MD Work Phone: [facility] 03-31-2022 13:47-0500 Systolic blood pressure 120 mm[Hg] Breanne Whittington MD Work Phone: [facility] 03-20-2022 11:25-0500 Body height 178 cm Yancy Centeno MD Work Phone: [facility] 03-20-2022 11:25-0500 Body temperature 98.2 [degF] Yancy Centeno MD Work Phone: [facility] 03-20-2022 11:25-0500 Body weight 82.56 kg Yancy Centeno MD Work Phone: [facility] 03-20-2022 11:25-0500 Diastolic blood pressure 74 mm[Hg] Yancy Centeno MD Work Phone: [facility] 03-20-2022 11:25-0500 Heart rate 60 /min Yancy Centeno MD Work Phone: [facility] 03-20-2022 11:25-0500 Respiratory rate 18 /min Yancy Centeno MD Work Phone: [facility] 03-20-2022 11:25-0500 SaO2% (BldA) [Mass fraction] 98 % Yancy Centeno MD Work Phone: [facility] 03-20-2022 11:25-0500 Systolic blood pressure 134 mm[Hg] Yancy Centeno MD Work Phone: [facility] 02-27-2022 15:25-0400 Body height 180.7 cm Chair H&N/Gi Work Phone: [facility] 02-27-2022 15:25-0400 Body temperature 97.5 [degF] Chair H&N/Gi Work Phone: [facility] 02-27-2022 15:25-0400 Body weight 84.3 kg Chair H&N/Gi Work Phone: [facility] 02-27-2022 15:25-0400 Diastolic blood pressure 72 mm[Hg] Chair H&N/Gi Work Phone: [facility] 02-27-2022 15:25-0400 Heart rate 58 /min Chair H&N/Gi Work Phone: [facility] 02-27-2022 15:25-0400 Respiratory rate 18 /min Chair H&N/Gi Work Phone: [facility] 02-27-2022 15:25-0400 SaO2% (BldA) [Mass fraction] 99 % Chair H&N/Gi Work Phone: [facility] 02-27-2022 15:25-0400 Systolic blood pressure 129 mm[Hg] Chair H&N/Gi Work Phone: [facility] 02-08-2022 15:05-0400 Body height 180.[address] Breanne Whittington Work Phone: [facility] Work Phone: 02-08-2022 15:05-0400 Body mass index (BMI) [Ratio] 25.1 kg/m2 Dr. Breanne Whittington Work Phone: [facility] Work Phone: 02-08-2022 15:05-0400 Body weight 81.[address] Breanne Whittington Work Phone: [facility] Work Phone: 02-08-2022 15:05-0400 Diastolic blood pressure 55 mm[Hg] Dr. Breanne Whittington Work Phone: [facility] Work Phone: 02-08-2022 15:05-0400 Heart rate 64 /min Dr. Breanne Whittington Work Phone: [facility] Work Phone: 02-08-2022 15:05-0400 Respiratory rate 14 /min Dr. Breanne Whittington Work Phone: [facility] Work Phone: 02-08-2022 15:05-0400 Systolic blood pressure 101 mm[Hg] Dr. Breanne Whittington Work Phone: [facility] Work Phone: 11-29-2021 15:01-0400 Body height 180 cm Breanne Whittington MD Work Phone: [facility] 11-29-2021 15:01-0400 Body weight 83.92 kg Breanne Whittington MD Work Phone: [facility] 11-29-2021 15:01-0400 Diastolic blood pressure 60 mm[Hg] Breanne Whittington MD Work Phone: [facility] 11-29-2021 15:01-0400 Heart rate 61 /min Breanne Whittington MD Work Phone: [facility] 11-29-2021 15:01-0400 Respiratory rate 16 /min Breanne Whittington MD Work Phone: [facility] 11-29-2021 15:01-0400 SaO2% (BldA) [Mass fraction] 99 % Breanne Whittington MD Work Phone: [facility] 11-29-2021 15:01-0400 Systolic blood pressure 106 mm[Hg] Breanne Whittington MD Work Phone: [facility] 11-07-2021 11:37-0400 Body height 180.3 cm Danielle Irwin APRN.[employer] Work Phone: [facility] 11-07-2021 11:37-0400 Body weight 84.82 kg Danielle Irwin APRN.[employer] Work Phone: [facility] 11-07-2021 11:37-0400 Diastolic blood pressure 71 mm[Hg] Danielle Irwin APRN.[employer] Work Phone: [facility] 11-07-2021 11:37-0400 Heart rate 56 /min Danielle Irwin [employer] Work Phone: [facility] 11-07-2021 11:37-0400 SaO2% (BldA) [Mass fraction] 96 % Danielle Irwin [employer] Work Phone: [facility] 11-07-2021 11:37-0400 Systolic blood pressure 113 mm[Hg] Danielle Irwin [employer] Work Phone: [facility] 11-04-2021 11:28-0400 Body height 180.3 cm Dimitry Pedraza MD Work Phone: [facility] 11-04-2021 11:28-0400 Body weight 84.82 kg Dimitry Pedraza MD Work Phone: [facility] 09-14-2021 13:15-0400 Body height 180.3 cm Sergo Joseph MD Work Phone: [facility] 09-14-2021 13:15-0400 Body weight 80.74 kg Sergo Joseph MD Work Phone: [facility] 09-14-2021 13:15-0400 Diastolic blood pressure 73 mm[Hg] Sergo Joseph MD Work Phone: [facility] 09-14-2021 13:15-0400 Heart rate 80 /min Sergo Joseph MD Work Phone: [facility] 09-14-2021 13:15-0400 Respiratory rate 18 /min Sergo Joseph MD Work Phone: [facility] 09-14-2021 13:15-0400 Systolic blood pressure 113 mm[Hg] Sergo Joseph MD Work Phone: [facility] 07-21-2021 09:40-0500 Body height 180.[address] Tito Hill Work Phone: [facility] Work Phone: 07-21-2021 09:40-0500 Body mass index (BMI) [Ratio] 25.4 kg/m2 Dr. Tito Hill Work Phone: [facility] Work Phone: 07-21-2021 09:40-0500 Body weight 82.[address] Tito Hill Work Phone: [facility] Work Phone: 07-21-2021 09:40-0500 Diastolic blood pressure 56 mm[Hg] Dr. Tito Hill Work Phone: [facility] Work Phone: 07-21-2021 09:40-0500 Heart rate 60 /min Dr. Tito Hill Work Phone: [facility] Work Phone: 07-21-2021 09:40-0500 Respiratory rate 16 /min Dr. Tito Hill Work Phone: [facility] Work Phone: 07-21-2021 09:40-0500 Systolic blood pressure 108 mm[Hg] Dr. Tito Hill Work Phone: [facility] Work Phone: 01-26-2017 16:01-0400 BMI (Body Mass Index) 25.8 kg/m2 Jamila Juan [facility] Work Phone: 01-26-2017 16:01-0400 BP Diastolic 68 mm[Hg] Jamila Juan [facility] Work Phone: 01-26-2017 16:01-0400 BP Systolic 121 mm[Hg] Jamila Juan [facility] Work Phone: 01-26-2017 16:01-0400 Height 180.34 cm Jamila Juan [facility] Work Phone: 01-26-2017 16:01-0400 Pulse (Heart Rate) 59 /min [facility] Work Phone: 01-26-2017 16:01-0400 Respiratory Rate 18 /min [facility] Work Phone: 01-26-2017 16:01-0400 Weight 83.92 kg [facility] Work Phone: 11-23-2015 13:45-0400 BSA (Body Surface Area) 2.05 m2 [facility] Work Phone: Encounters Encounter Date Encounter Type Care Provider Facility Start: 03-11-2025 ambulatory Breanne [place] Facility:[facility] Start: 01-20-2025 End: 01-20-2025 ambulatory rBeanne Whittington MD Work Phone: [facility] Comment on above: Right leg & foot augusto n Start: 01-19-2025 End: 01-19-2025 Orders Only Yancy Centeno MD Work Phone: [facility] Comment on above: Meningioma (HCC); Brain edema (HCC); Seizures (HCC); Malignant neoplasm metastatic to brain (HCC) Start: 01-05-2025 End: 01-05-2025 ambulatory Lakisha Junior MD Work Phone: Neurology Comment on above: blood test results Start: 01-05-2025 End: 01-05-2025 E-mail encounter from caregiver Lakisha Junior MD Work Phone: Neurology Start: 01-02-2025 End: 01-02-2025 ambulatory BREANNE WHITTINGTON Facility:[facility] Start: 12-31-2024 End: 12-31-2024 Patient encounter procedure Lakisha Junior MD Work Phone: Neurology Comment on above: Fasciculation (Prima ry Dx) Start: 12-31-2024 End: 12-31-2024 ambulatory [facility] Facility:[facility] Start: 12-30-2024 End: 12-30-2024 ambulatory Lakisha Junior MD Work Phone: Neurology Comment on above: Video of leg fascilc ulations Start: 12-01-2024 End: 12-01-2024 Patient encounter procedure Davion Samayoa MD Work Phone: Cardiology Comment on above: Aortic stenosis, mod erate (Primary Dx); Coronary artery disease involving benton coronary artery of benton heart without angina pectoris; Postsurgical percutaneous transluminal coronary angioplasty (PTCA) status Start: 12-01-2024 End: 12-01-2024 ambulatory DAVION SAMAYOA Facility:[facility] Start: 11-24-2024 End: 11-24-2024 Telemedicine consultation with patient Yancy Centeno MD Work Phone: [facility] Start: 11-24-2024 End: 11-24-2024 ambulatory Yancy Centeno MD Work Phone: [facility] Comment on above: Focal seizures (HCC) ; Pain in right foot; Muscle fasciculation; History of brain tumor; Family history of amyotrophic lateral sclerosis Start: 10-24-2024 End: 10-24-2024 ambulatory Yancy Centeno MD Work Phone: [facility] Comment on above: Right leg muscle twi tches video reviewed Start: 10-24-2024 End: 10-24-2024 E-mail encounter from caregiver Yancy Centeno MD Work Phone: [facility] Start: 10-23-2024 End: 12-23-2024 Follow-up encounter Breanne Whittington MD Work Phone: Pulmonology [facility] Start: 10-22-2024 End: 10-22-2024 Patient encounter procedure Breanne Whittington MD Work Phone: [facility] Comment on above: Meningioma (HCC) (Pr imary Dx); Brain edema (HCC); Focal motor seizure (HCC); Coronary artery disease involving benton coronary artery of benton heart without angina pectoris; Presence of coronary angioplasty implant and graft; MELL on CPAP; Glioblastoma (HCC); Encounter for screening examination for other mental health and behavioral disorders Start: 10-22-2024 End: 10-22-2024 ambulatory BREANNE WHITTINGTON Facility:[facility] Start: 10-20-2024 End: 10-20-2024 E-mail encounter from caregiver Yancy Centeno MD Work Phone: [facility] Start: 10-20-2024 End: 10-20-2024 Telemedicine consultation with patient Yancy Centeno MD Work Phone: [facility] Start: 10-20-2024 End: 10-20-2024 ambulatory Yancy Centeno MD Work Phone: [facility] Comment on above: 10/01/2024 Reena Aviles MD Radiation Oncology Meningioma (HCC); Localization-related (focal) (partial) idiopathic epilepsy and epileptic syndromes with seizures of localized onset, not intractable, without status epilepticus (HCC); Diffuse pain in right lower extremity; Personal history of irradiation Start: 10-01-2024 End: 10-01-2024 ambulatory PIPO AVILES Facility:[facility] Start: 09-19-2024 End: 09-25-2024 Telephone encounter Lakisha Casey APRN.CNP Work Phone: [address] [place] [address] Comment on above: Patient Update Start: 09-17-2024 End: 09-17-2024 Patient encounter procedure Lakisha Casey APRN.CNP Work Phone: Neurology Comment on above: MELL on CPAP (Primary Dx) Start: 09-17-2024 End: 09-17-2024 ambulatory LAKISHA CASEY Facility:[facility] Start: 09-11-2024 End: 09-16-2024 Orders Only Yancy Centeno MD Work Phone: [facility] Comment on above: Meningioma (HCC) (Pr imary Dx) DA 2 weeks or best Start: 09-09-2024 End: 09-09-2024 Telephone encounter Yancy Centeno MD Work Phone: [facility] Start: 09-08-2024 End: 11-08-2024 Follow-up encounter Breanne Whittington MD Work Phone: [facility] Start: 09-03-2024 End: 09-03-2024 Orders Only Yancy Centeno MD Work Phone: [facility] Comment on above: Meningioma (HCC) (Pr imary Dx) Meningioma (HCC) (Pr imary Dx); Malignant neoplasm metastatic to brain (HCC); Weakness; Seizures (HCC); Glioblastoma (HCC); Pain in right foot; Focal motor seizure (HCC); Brain edema (HCC); Seizure (HCC); Gait difficulty; Radionecrosis; Nerve pain Start: 09-02-2024 End: 11-02-2024 Follow-up encounter Yancy Centeno MD Work Phone: [facility] Start: 09-01-2024 End: 09-01-2024 ambulatory BREANNE WHITTINGTON Facility:[facility] Start: 09-01-2024 End: 09-01-2024 Subsequent hospital visit by physician Mri Radio [facility] (I-Stat/1.5t) Work Phone: Radiology Comment on above: Meningioma (HCC) [D3 2.9] Start: 06-25-2024 End: 06-26-2024 Refill Yancy Centeno MD Work Phone: [facility] Comment on above: Refill Request Start: 06-22-2024 End: 06-22-2024 Telephone encounter Orquidea Ley MD Work Phone: OR Provider Adult Comment on above: Results Start: 06-19-2024 End: 06-23-2024 Admission to same day surgery center Orquidea Ley MD Work Phone: General Surgery Comment on above: Pathology report res ults Start: 06-19-2024 End: 06-23-2024 ambulatory Orquidea Ley MD Work Phone: General Surgery Start: 06-13-2024 End: 06-16-2024 Telephone encounter Miguelangel Spence APRN.CNP Work Phone: Neurology Start: 06-09-2024 ambulatory JUDY DYKESCristo Facility:[facility] Start: 06-09-2024 End: 06-09-2024 Subsequent hospital visit by physician Orquidea Ley MD Work Phone: [facility] Comment on above: History of colonic p olyps [Z86.0100] Start: 06-04-2024 End: 06-04-2024 Telephone encounter Breanne Whittington MD Work Phone: [facility] Comment on above: Patient Question (Re : flu shot and elevated AST) Start: 05-31-2024 End: 06-02-2024 Telephone encounter Breanne Whittington MD Work Phone: [facility] Comment on above: Results Start: 05-30-2024 End: 05-30-2024 ambulatory BREANNE WHITTINGTON Facility:[facility] Start: 05-22-2024 End: 05-22-2024 Refill Yancy Centeno MD Work Phone: [facility] Comment on above: Refill Request Start: 05-19-2024 ambulatory Gary Shepherd Facility:[facility] Start: 05-19-2024 End: 05-19-2024 [facility] Start: 04-25-2024 End: 04-25-2024 Patient encounter procedure Breanne Whittington MD Work Phone: [facility] Comment on above: Meningioma (HCC) (Pr imary Dx); Brain edema (HCC); Seizure (HCC); Focal motor seizure (HCC); Coronary artery disease involving benton coronary artery of benton heart without angina pectoris; Mixed hyperlipidemia; Mitral valve prolapse; Myocardial ischemia; MELL on CPAP; CKD (chronic kidney disease) stage 1, GFR 90 ml/min or greater; Glioblastoma (HCC); URI, acute; Tick bite, unspecified site, subsequent encounter; Screening for prostate cancer Start: 04-25-2024 End: 04-25-2024 ambulatory DAVION SAMAYOA Facility:[facility] Start: 04-24-2024 End: 04-24-2024 ambulatory Breanne Whittington Facility:[facility] Start: 04-18-2024 End: 04-18-2024 ambulatory BREANNE WHITTINGTON Facility:[facility] Start: 04-18-2024 End: 04-18-2024 Office outpatient visit 15 minutes Fouzia Amado APRN.[employer] Work Phone: [facility] Comment on above: Acute maxillary sinu sitis, recurrence not specified (Primary Dx) Start: 04-17-2024 End: 04-17-2024 Patient encounter procedure Breanne Whittington MD Work Phone: [facility] Comment on above: Virtual appointment Start: 04-17-2024 End: 04-17-2024 ambulatory Breanne Whittington MD Work Phone: [facility] Start: 03-31-2024 End: 03-31-2024 ambulatory Breanne Whittington MD Work Phone: [facility] Comment on above: Tick bite raSH Skin infection (Prim jose Dx); Tick bite, unspecified site, initial encounter Start: 03-31-2024 End: 03-31-2024 Telemedicine consultation with patient Henok Warren APRN.[employer] Work Phone: [facility] [place] Start: 03-17-2024 End: 03-17-2024 Telephone encounter Orquidea Ley MD Work Phone: General Surgery Start: 03-07-2024 End: 03-07-2024 ambulatory Yancy Centeno MD Work Phone: [facility] Comment on above: Focal motor seizure (HCC) (Primary Dx); Seizure (HCC); Gait difficulty; Malignant neoplasm metastatic to brain (HCC); Meningioma (HCC); Recurrent seizures (HCC); Brain edema (HCC); Pain in right foot; Radionecrosis; Weakness; Glioblastoma (HCC); Nerve pain; Seizures (HCC) Start: 03-07-2024 End: 03-07-2024 Telemedicine consultation with patient Yancy Centeno MD Work Phone: [facility] Start: 02-27-2024 End: 02-27-2024 Refill Yancy Centeno MD Work Phone: [facility] Comment on above: Refill Request Start: 02-08-2024 End: 02-08-2024 Orders Only Yancy Centeno MD Work Phone: [facility] Comment on above: Brain tumor (HCC) (P rimary Dx) Start: 02-07-2024 End: 02-07-2024 Orders Only Yancy Centeno MD Work Phone: [facility] Comment on above: Glioblastoma (HCC) ( Primary Dx) Start: 01-23-2024 End: 01-23-2024 Telephone encounter Miguelangel Spence APRN.CNP Work Phone: Neurology Start: 12-07-2023 End: 03-18-2024 Telephone encounter Orquidea Ley MD Work Phone: General Surgery Comment on above: Waitlist Maintenance Start: 12-07-2023 End: 12-07-2023 Patient encounter procedure Orquidea Ley MD Work Phone: General Surgery Comment on above: Family history of co marleny cancer in mother (Primary Dx); History of colonic polyps Start: 12-06-2023 End: 12-06-2023 Patient encounter procedure [facility]-C [facility] Comment on above: Neuropathic pain of right foot (Primary Dx); Focal motor seizure (HCC); Other intervertebral disc degeneration, lumbar region Start: 11-05-2023 Telephone encounter Breanne Whittington MD Work Phone: [facility] Comment on above: Orders Start: 10-31-2023 End: 10-31-2023 Patient encounter procedure Breanne Whittington MD Work Phone: [facility] Comment on above: Meningioma (HCC) (Pr imary Dx); Brain edema (HCC); Seizure (HCC); Coronary artery disease involving benton coronary artery of benton heart without angina pectoris; Medication monitoring encounter Start: 09-27-2023 Telephone encounter En phelan PT Work Phone: [facility] Comment on above: Patient Question Start: 09-26-2023 End: 09-26-2023 ambulatory Lakisha Junior MD Work Phone: Neurology Comment on above: Pain in right foot ( Primary Dx) Start: 09-26-2023 End: 09-26-2023 Telemedicine consultation with patient Lakisha Junior MD Work Phone: Neurology Start: 09-18-2023 ambulatory Yancy Centeno MD Work Phone: [facility] Start: 09-17-2023 Orders Only Yancy Centeno MD Work Phone: [facility] Comment on above: Meningioma (HCC) (Pr imary Dx) Start: 09-11-2023 Telephone encounter Miguelangel Spence [employer] Work Phone: Neurology Comment on above: PAP Supply Fax Start: 09-11-2023 End: 09-11-2023 Patient encounter procedure Miguelangel Spence [employer] Work Phone: Neurology Comment on above: MELL on CPAP (Primary Dx); Symptomatic localization-related epilepsy (HCC); History of myocardial infarction Start: 09-10-2023 End: 09-11-2023 Patient encounter procedure Yancy Centeno MD Work Phone: [facility] Comment on above: Meningioma (HCC) (Pr imary Dx); Recurrent seizures (HCC); Nerve pain; Gait difficulty; Brain edema (HCC); Pain in right foot; Glioblastoma (HCC) Start: 08-31-2023 End: 08-31-2023 Subsequent hospital visit by physician Mri Radio [facility] (I-Stat/1.5t) Work Phone: Radiology Comment on above: Meningioma (HCC) [D3 2.9] Start: 08-30-2023 End: 08-30-2023 ambulatory En Golias PT Work Phone: [facility] Comment on above: Foot pain, right (Pr imary Dx); Bursitis of right foot Start: 08-11-2023 ambulatory En Golias P T Work Phone: [facility] Comment on above: Change med bridge Start: 08-01-2023 Orders Only Augustin Gay ke Work Phone: Podiatry Comment on above: Bursitis of right fo ot (Primary Dx); Foot pain, right Start: 07-20-2023 Orders Only Kristopher Melita Rowe kes PT Work Phone: [facility] Physical Therapy Comment on above: Pain in right foot ( Primary Dx) Start: 06-21-2023 Telephone encounter Miriam Marinelli RN [facility] Comment on above: Medication Update Start: 05-01-2023 Telephone encounter Breanne Whittington MD Work Phone: [facility] Comment on above: requesting to pick u p disk that was left Start: 04-25-2023 End: 04-25-2023 ambulatory Miguelangel Spence APRN.[employer] Work Phone: Neurology Comment on above: MELL on CPAP (Primary Dx) Start: 04-25-2023 End: 04-25-2023 Telemedicine consultation with patient Miguelangel Spence APRN.[employer] Work Phone: [facility] Start: 04-11-2023 Non-patient / Non-visit Dr. Ladan Whittington Work Phone: [facility] Work Phone: Start: 04-10-2023 Non-patient / Non-visit Dr. Ladan Whittington Work Phone: [facility] Start: 04-10-2023 End: 04-10-[address] Breanne Whittington Work Phone: [facility] Work Phone: Start: 04-10-2023 End: 04-10-[address] Breanne Whittington Work Phone: [facility] Work Phone: Start: 04-02-2023 Telephone encounter Tito Mcqueen MD Work Phone: [facility] Comment on above: Results Start: 03-29-2023 End: 03-29-2023 Patient encounter procedure Nishant Mcqueen MD Work Phone: [facility] Comment on above: Irregular heartbeat (Primary Dx); Coronary artery disease involving benton coronary artery of benton heart without angina pectoris; Mitral valve prolapse Start: 03-28-2023 Telephone encounter Breanne Whittington MD Work Phone: [facility] Comment on above: Results Start: 03-22-2023 ambulatory Florencia Martins Work Phone: [facility] [place] Comment on above: Virtual visit Start: 03-22-2023 E-mail encounter fro m caregiver Florencia Garrett RN Work Phone: [facility] Start: 03-22-2023 End: 03-28-2023 Office outpatient new 45 minutes Talia Charlton MD Work Phone: Division [facility] Surgery [facility] Comment on above: Meningioma (Primary Dx) Start: 03-21-2023 ambulatory Augustin bolton Work Phone: Podiatry Comment on above: Foot injection Start: 03-19-2023 End: 03-19-2023 Patient encounter procedure Miguelangel Spence APRN.[employer] Work Phone: Neurology Comment on above: MELL on CPAP (Primary Dx) Start: 03-12-2023 End: 03-12-2023 Subsequent hospital visit by physician Us Gomes A21 6 Work Phone: Radiology Comment on above: Bursitis of right fo ot [M77.51] Start: 02-23-2023 Orders Only Yancy Centeno MD Work Phone: [facility] Comment on above: Meningioma (HCC) (Pr imary Dx); Brain edema (HCC); Seizures (HCC); Malignant neoplasm metastatic to brain (HCC) Start: 02-19-2023 ambulatory Yancy Centeno MD Work Phone: [facility] Start: 02-19-2023 Follow-up encounter Yancy Centeno MD Work Phone: [facility] Comment on above: Follow up Start: 02-16-2023 End: 02-16-2023 ambulatory Yancy Centeno MD Work Phone: [facility] Comment on above: Meningioma (HCC); Seizure (HCC); Brain edema (HCC) Start: 02-16-2023 End: 02-16-2023 Telemedicine consultation with patient Yancy Centeno MD Work Phone: [facility] Start: 02-15-2023 Telephone encounter Miriam Marinelli RN [facility] Comment on above: Appointment Start: 02-08-2023 ambulatory EVELIA GALDAMEZ Facility: [facility] Start: 02-01-2023 Telephone encounter Colton Ch[facility] Rad[facility] Comment on above: Appointment Start: 02-01-2023 ambulatory KEIRY DAVID Facility: [facility] Start: 02-01-2023 End: 02-01-2023 Office outpatient new 60 minutes Napoleon Pappas MD Work Phone: Division of Neuro Oncology at [facility] Comment on above: Meningioma (Primary Dx) Start: 01-30-2023 End: 01-30-2023 Patient encounter procedure Augustin Carrillo Work Phone: Podiatry Comment on above: Bursitis of right fo ot (Primary Dx); Numbness; Neuroma Start: 01-29-2023 End: 01-29-2023 ambulatory Yancy Centeno MD Work Phone: [facility] Comment on above: Meningioma (HCC) (Pr imary Dx); Seizures (HCC) Start: 01-29-2023 End: 01-29-2023 Telemedicine consultation with patient Yancy Centeno MD Work Phone: [facility] Start: 01-26-2023 End: 01-26-2023 Subsequent hospital visit by physician Mri Radio [facility] (I-Stat/1.5t) Work Phone: Radiology Comment on above: Meningioma (HCC) [D3 2.9] Start: 01-23-2023 ambulatory Augustin bolton Work Phone: Podiatry Comment on above: ultrasound results Start: 01-23-2023 E-mail encounter fro m caregiver Augustin Villafanache Work Phone: [facility] Start: 01-19-2023 ambulatory Breanne Whittington MD Work Phone: [facility] [place] Comment on above: Information and MRI Start: 01-19-2023 End: 01-19-2023 Subsequent hospital visit by physician Us Main A21 7 Work Phone: Radiology Comment on above: Neuroma [D36.10] Start: 01-16-2023 Non-patient / Non-visit Dr. Ladan Whittington Work Phone: [facility] Start: 01-16-2023 End: 01-16-2023 Admission to same day surgery center Dr. Breanne Whittington Work Phone: [facility] Work Phone: Start: 01-16-2023 End: 01-16-[address] Breanne Whittington Work Phone: [facility] Work Phone: Start: 01-04-2023 End: 01-04-[address] Breanne Whittington Work Phone: [facility] Work Phone: Start: 01-02-2023 Telephone encounter Katey Gonzales ( Coord) Radiology Comment on above: Appointment Start: 01-02-2023 End: 01-02-2023 Patient encounter procedure Augustin Carrillo Work Phone: Podiatry Comment on above: Foot pain, right (Pr imary Dx); Numbness; Neuroma Start: 12-26-2022 End: 12-26-2022 Patient encounter procedure Michelle Ruiz PA-C Work Phone: General Surgery Comment on above: Encounter for screen ing for malignant neoplasm of colon (Primary Dx); Family history of colon cancer; History of colonic polyps Start: 11-30-2022 Orders Only Miguelangel bowen APRN.[employer]ARMWORK[employer] Work Phone: Neurology Comment on above: MELL on CPAP (Primary Dx) PAP Therapy Fax Start: 11-22-2022 Telephone encounter Miguelangel Spence APRN.MONO Work Phone: Neurology Comment on above: PAP Therapy Follow U p (DOWNLOAD) Start: 11-21-2022 Telephone encounter Miguelangel Spence MERCHANT BANKER.[employer]ARMWORK[employer]GET[employer] Work Phone: Neurology Comment on above: PAP Supply Fax Start: 11-20-2022 End: 11-20-2022 Patient encounter procedure Miguelangel Spence APRN.MONO Work Phone: Neurology Comment on above: MELL on CPAP (Primary Dx) Start: 11-07-2022 End: 11-07-[address] Breanne Whittington Work Phone: [facility] Work Phone: Start: 11-06-2022 End: 11-06-2022 ambulatory Yancy Centeno MD Work Phone: [facility] Comment on above: Meningioma (HCC) (Pr imary Dx); Brain edema (HCC); Seizure (HCC); Focal motor seizure (HCC) Start: 11-06-2022 End: 11-06-2022 Telemedicine consultation with patient Yancy Centeno MD Work Phone: [facility] Start: 09-11-2022 Refill Yancy Centeno MD Work Phone: [facility] Comment on above: Refill Request Start: 08-30-2022 Telephone encounter Breanne Whittington MD Work Phone: [facility] Comment on above: Referral Request Start: 08-23-2022 Patient encounter procedure [facility] Provider [facility] Department Start: 08-17-2022 Refill Yancy Centeno MD Work Phone: [facility] Comment on above: Refill Request Start: 08-03-2022 Orders Only Yancy Centeno MD Work Phone: [facility] Comment on above: Meningioma (HCC) (Pr imary Dx) Start: 08-02-2022 End: 08-02-2022 Patient encounter procedure Yancy Centeno MD Work Phone: [facility] Comment on above: Meningioma (HCC) (Pr imary Dx); Brain edema (HCC); Seizure (HCC); Weakness; Gait difficulty Start: 07-31-2022 End: 07-31-2022 Subsequent hospital visit by physician Mri Radio [facility] (I-Stat/1.5t) Work Phone: Radiology Comment on above: 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] Start: 07-28-2022 ambulatory Yancy Centeno MD Work Phone: [facility] Comment on above: MRI Sunday Start: 06-27-2022 Telephone encounter Yancy Centeno MD Work Phone: [facility] Comment on above: Patient Question Start: 06-19-2022 Telephone encounter Florencia giang RN Work Phone: [facility] Comment on above: Lacosamide RX Meningioma (HCC); Seizure (HCC) Start: 06-08-2022 End: 06-08-2022 ambulatory Yancy Centeno MD Work Phone: [facility] Comment on above: Meningioma (HCC) (Pr imary Dx) Start: 06-08-2022 End: 06-08-2022 Telemedicine consultation with patient Yancy Centeno MD Work Phone: [facility] Start: 06-06-2022 Telephone encounter Yancy Centeno MD Work Phone: [facility] Comment on above: DA 08/02/22- change appt please Start: 05-30-2022 End: 05-30-2022 Patient encounter procedure Breanne Whittington MD Work Phone: [facility] Comment on above: Symptomatic localiza tion-related epilepsy (HCC) (Primary Dx); Seizure (HCC); Meningioma (HCC); Focal motor seizure (HCC); Coronary artery disease involving benton coronary artery of benton heart without angina pectoris Start: 05-19-2022 ambulatory Danielle romero [employer]CHANT [employer]ER.[employer] Work Phone: [facility] Start: 05-19-2022 Patient encounter procedure Danielle Irwin [employer]CHANT B[employer]ER.[employer] Work Phone: Neurology Comment on above: Appointment Start: 04-24-2022 End: 04-24-2022 ambulatory Trev Sutton MD Work Phone: [facility] Comment on above: Meningioma (HCC) (Pr imary Dx); Brain edema (HCC) 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); Atypical meningioma of brain (HCC) Start: 04-24-2022 Telephone encounter Yancy Centeno MD Work Phone: [facility] Comment on above: DA week July 17 Start: 04-24-2022 End: 04-24-2022 Telemedicine consultation with patient Trev Sutton MD Work Phone: [facility] Start: 04-21-2022 End: 04-21-2022 Subsequent hospital visit by physician Mri Radio [facility] (I-Stat/1.5t) Work Phone: Radiology Comment on above: Meningioma (HCC) [D3 2.9] Start: 04-10-2022 End: 04-10-2022 ambulatory Lab Port/Sifuentes Faizan Main Ca 1 Work Phone: Hematology/Oncology Comment on above: Brain tumor (HCC) Brain edema (HCC) (P rimary Dx) Start: 04-10-2022 Chart abstracting Florencia Garrett RN Work Phone: [facility] Comment on above: Avastin infusion #3 completed Start: 04-09-2022 Refill Yancy Centeno MD Work Phone: [facility] Comment on above: Refill Request Start: 04-03-2022 End: 04-03-2022 Orders Only Yancy Centeno MD Work Phone: [facility] Comment on above: Neck mass [R22.1] Neck pain [M54.2] Start: 03-31-2022 End: 03-31-2022 Patient encounter procedure Breanne Whittington MD Work Phone: [facility] Comment on above: Neck pain (Primary D x); Encounter for immunization; Hyperglycemia; Paresthesia; Meningioma (HCC); Seizure (HCC); Coronary artery disease involving benton coronary artery of benton heart without angina pectoris; Neck mass Start: 03-27-2022 Telephone encounter Financial Navigator Faizan Work Phone: Hematology/Oncology Comment on above: Benefits Investigati on Start: 03-20-2022 End: 03-20-2022 ambulatory Chair 12 H&N/Gi Work Phone: Hematology/Oncology Comment on above: Brain edema (HCC) (P rimary Dx) Start: 03-20-2022 Chart abstracting Florencia Garrett RN Work Phone: [facility] [place] Comment on above: Avastin infusion #2 completed Start: 03-20-2022 Telephone encounter Angela WHATLEY W Psychiatry Comment on above: Social Work Consulta tion Start: 03-20-2022 End: 03-20-2022 Patient encounter procedure Yancy Centeno MD Work Phone: [facility] [place] Comment on above: Meningioma (HCC) (Pr imary Dx) Start: 03-13-2022 Orders Only Yancy Centeno MD Work Phone: [facility] Start: 03-02-2022 Chart abstracting Florencia Garrett RN Work Phone: [facility] Comment on above: Cardiology records- OSH- scanned into epir Start: 02-27-2022 End: 02-27-2022 ambulatory Chair 12 H&N/Gi Work Phone: Hematology/Oncology Comment on above: Brain tumor (HCC) (P rimary Dx); Brain edema (HCC); Encounter for antineoplastic immunotherapy Start: 02-27-2022 Chart abstracting Florencia Garrett RN Work Phone: [facility] [place] Comment on above: AVASTIN cycle #1 com pleted 02/27/22 Start: 02-22-2022 ambulatory Yancy Centeno MD Work Phone: [facility] Start: 02-21-2022 Orders Only Yancy Centeno MD Work Phone: [facility] Start: 02-20-2022 Orders Only Yancy Centeno MD Work Phone: [facility] Comment on above: Brain tumor (HCC) (P rimary Dx) Start: 02-16-2022 End: 02-16-2022 ambulatory [facility] Provider [facility] Comment on above: EEG scheduling Start: 02-16-2022 E-mail encounter fro m caregiver [facility] Provider [facility] Start: 02-16-2022 Non-patient / Non-visit Dr. Ladan Whittington Work Phone: [facility] Start: 02-16-2022 End: 02-16-[address] Breanne Whittington Work Phone: [facility] Start: 02-09-2022 Orders Only Yancy Centeno MD Work Phone: [facility] Comment on above: Meningioma (HCC) (Pr imary Dx) Start: 02-08-2022 End: 02-08-[address] Breanne [facility]ittington [facility] Start: 02-08-2022 End: 02-08-2022 ambulatory Yancy Centeno MD Work Phone: [facility] Comment on above: Meningioma (HCC) (Pr imary Dx); Brain edema (HCC) Start: 02-08-2022 End: 02-08-2022 Telemedicine consultation with patient Yancy Centeno MD Work Phone: [facility] Start: 02-07-2022 End: 02-07-2022 ambulatory MARLENE ESPOSITO Facility:[id number] Start: 02-07-2022 End: 02-07-2022 ambulatory Marlene Esposito OT/L [facility] [place] Comment on above: Meningioma (HCC); Seizure (HCC) Start: 02-06-2022 Orders Only Yancy Centeno MD Work Phone: [facility] Comment on above: Recurrent seizures ( HCC); Meningioma (HCC); Seizure (HCC) Start: 02-03-2022 Chart abstracting Florencia Garrett RN Work Phone: [facility] Comment on above: PA approved for Nayz ilam spray Start: 02-02-2022 Orders Only Yancy Centeno MD Work Phone: [facility] Comment on above: Seizure (HCC) (Prima ry Dx) Start: 02-01-2022 End: 02-01-2022 ambulatory Yancy Centeno MD Work Phone: [facility] Comment on above: Glioblastoma (HCC) ( Primary Dx); Meningioma (HCC); Seizure (HCC); Recurrent seizures (HCC) Start: 02-01-2022 End: 02-01-2022 Telemedicine consultation with patient Yancy Centeno MD Work Phone: [facility] Start: 01-30-2022 End: 01-30-2022 ambulatory Breanne Whittington MD Work Phone: [facility] Comment on above: COVID-19 (Primary Dx ) Start: 01-30-2022 End: 01-30-2022 Telemedicine consultation with patient Breanne Whittington MD Work Phone: [facility] Start: 01-30-2022 Telephone encounter Florencia giang RN Work Phone: [facility] Comment on above: +COVID- change appt to VV Start: 01-29-2022 ambulatory Breanne Whittington MD Work Phone: [facility] Comment on above: Covid home test posi tive Start: 01-26-2022 End: 01-26-2022 Subsequent hospital visit by physician Mri Radio [facility] (I-Stat/1.5t) Work Phone: Radiology Comment on above: 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] Start: 01-17-2022 Orders Only Augustin bolton Work Phone: Podiatry Comment on above: Chronic pain of righ t ankle (Primary Dx) Patient Question Start: 01-06-2022 End: 01-06-2022 ambulatory Emg 850) Neurology Start: 01-06-2022 End: 01-06-2022 Patient encounter procedure Emg 1 Neur Trip (Max Weight: 850) TRIP Start: 12-21-2021 Telephone encounter Yancy Centeno MD Work Phone: [facility] Comment on above: Patient Question Start: 12-20-2021 End: 12-20-2021 Subsequent hospital visit by physician Dayan [facility] Ravi Work Phone: Radiology Comment on above: Foot pain, right [M7 9.671] Start: 12-20-2021 End: 12-20-2021 Patient encounter procedure Augustin Villafanache Work Phone: Podiatry Comment on above: Numbness (Primary Dx ); Foot pain, right Start: 11-29-2021 End: 11-29-2021 Patient encounter procedure Breanne Whittington MD Work Phone: [facility] Comment on above: Meningioma (HCC) (Pr imary Dx); Seizure (HCC); Brain edema (HCC); Coronary artery disease involving benton coronary artery of benton heart without angina pectoris; Mixed hyperlipidemia; Nonrheumatic aortic valve stenosis; MELL (obstructive sleep apnea); Tinnitus, right ear; Foot pain, right; Screening for prostate cancer Start: 11-21-2021 End: 11-21-2021 ambulatory Yancy Centeno MD Work Phone: [facility] Comment on above: Meningioma (HCC); Seizure (HCC); Brain edema (HCC); Recurrent seizures (HCC); Muscle spasticity; Radionecrosis Meningioma (HCC) (Pr imary Dx); Seizure (HCC) Start: 11-21-2021 Telephone encounter Yancy Centeno MD Work Phone: [facility] Comment on above: Rx Clarification Req uest Form Start: 11-21-2021 End: 11-21-2021 Telemedicine consultation with patient Yancy Centeno MD Work Phone: [facility] Start: 11-07-2021 End: 11-07-2021 Patient encounter procedure Danielle Irwin APRN.CNP Work Phone: Neurology Comment on above: MELL (obstructive sle ep apnea) (Primary Dx) Start: 11-04-2021 End: 11-04-2021 Patient encounter procedure Dimitry Pedraza MD Work Phone: Urology Comment on above: Impotence of organic origin (Primary Dx) Start: 11-01-2021 End: 11-01-2021 ambulatory Maicol Youngsparger PT Work Phone: [facility] Comment on above: Cervicocranial syndr ome (Primary Dx); Meningioma (HCC); Tinnitus, bilateral Start: 10-17-2021 Orders Only Yancy Centeno MD Work Phone: [facility] Comment on above: Recurrent seizures ( HCC) (Primary Dx); Encounter for therapeutic drug level monitoring Start: 10-07-2021 End: 10-07-2021 ambulatory Yancy Centeno MD Work Phone: [facility] Comment on above: Meningioma (HCC); Seizure (HCC) Start: 10-07-2021 End: 10-07-2021 Telemedicine consultation with patient Yancy Centeno MD Work Phone: [facility] Start: 10-05-2021 ambulatory Breanne Whittington MD Work Phone: [facility] Comment on above: Tetanus shot Start: 10-05-2021 End: 10-05-2021 Nursing evaluation of patient and report Mi Nurse Work Phone: [facility] Comment on above: Recurrent seizures ( HCC) Start: 10-03-2021 Orders Only Pipo Aviles MD Work Phone: Radiation Oncology Comment on above: Meningioma (HCC); Recurrent seizures (HCC); Muscle spasticity; Radionecrosis Start: 09-14-2021 End: 09-14-2021 Patient encounter procedure Sergo Joseph MD Work Phone: Neurology Comment on above: Recurrent seizures ( HCC) (Primary Dx); Meningioma (HCC) Start: 09-13-2021 Orders Only Yancy Centeno MD Work Phone: [facility] Comment on above: Seizure (HCC) (Prima ry Dx) Start: 09-12-2021 Orders Only Yancy Centeno MD Work Phone: [facility] Comment on above: Encounter for therap eutic drug level monitoring (Primary Dx) Meningioma (HCC); Recurrent seizures (HCC); Muscle spasticity; Radionecrosis Results Start: 09-11-2021 Refill Yancy Centeno MD Work Phone: [facility] Comment on above: Refill Request Start: 09-02-2021 End: 09-02-2021 ambulatory Yancy Centeno MD Work Phone: [facility] Comment on above: Meningioma (HCC) (Pr imary Dx) Start: 09-02-2021 End: 09-02-2021 Telemedicine consultation with patient Yancy Centeno MD Work Phone: [facility] Start: 08-26-2021 Telephone encounter Yancy Centeno MD Work Phone: [facility] Comment on above: Patient Update Start: 08-25-2021 End: 08-25-2021 Subsequent hospital visit by physician Ct [facility] W[facility] (I-Stat) Work Phone: Cat Scan Comment on above: Meningioma (HCC) [D3 2.9] Start: 08-24-2021 Telephone encounter Florencia giang RN Work Phone: [facility] Comment on above: CT Head scheduling Start: 08-22-2021 Telephone encounter Yancy Centeno MD Work Phone: [facility] Comment on above: Seizure Start: 08-08-2021 Get Medical Advice Breanne Whittington MD Work Phone: [facility] Comment on above: Prescription refill Start: 08-04-[address] Rashawn Hill [facility] Start: 07-21-2021 End: 07-21-[address] Tito Hill Work Phone: [facility] Start: 06-06-2021 End: 06-06-[address] Tito Hill Work Phone: [facility] Procedures Date Procedure Procedure Detail Performing Clinician Start: 10-22-2024 Adult depression scr eening assessment Yancy Centeno MD Work Phone: Start: 09-01-2024 Mri brain brain stem w/o w/contrast material Yancy Centeno MD Work Phone: Start: 06-09-2024 Colonoscopy flx dx w /collj spec when pfrmd Orquidea Ley MD Work Phone: Start: 06-09-2024 Colonoscopy Orquidea diaz MD Work Phone: Start: 05-30-2024 Lipid 1996 panel - S misha or Plasma Breanne Whittington MD Work Phone: Start: 10-31-2023 Adult depression scr eening assessment Danielle Khan PA-C Work Phone: Start: 08-31-2023 Mri brain brain stem w/o w/contrast material Yancy Centeno MD Work Phone: Start: 05-03-2023 Lipid 1996 panel - S misha or Plasma Miriam Marinelli RN Start: 03-12-2023 End: 03-12-2023 Arthrocnt aspir&/inj small jt/bursaw/us rec rprt Augustin Carrillo Work Phone: Start: 01-26-2023 Mri brain brain stem w/o w/contrast material Yancy Centeno MD Work Phone: Start: 01-19-2023 Us compl joint r-t w /image documentation Augustin Carrillo Work Phone: Start: 01-16-2023 End: 01-16-[address] Breanne Whittington Work Phone: Start: 07-31-2022 Mri brain brain stem w/o w/contrast material Yancy Centeno MD Work Phone: Start: 04-21-2022 Mri brain brain stem w/o w/contrast material Yancy Centeno MD Work Phone: Start: 04-10-2022 Blood count complete auto&auto difrntl wbc Yancy Centeno MD Work Phone: Start: 04-03-2022 Radex spine cervical 4 or 5 views Breanne Whittington MD Work Phone: Start: 04-03-2022 Us soft tissue head & neck real time imge docm Breanne Whittington MD Work Phone: Start: 03-31-2022 INFLUENZA VACCINE QUADRIVALENT 6 MO - 64 YRS IM Breanne Whittington MD Work Phone: Start: 02-27-2022 Blood count complete auto&auto difrntl wbc Yancy Centeno MD Work Phone: Start: 02-17-2022 Lipid 1996 panel - S misha or Plasma Augustin Carrillo Work Phone: Start: 02-16-2022 Radionuclide imaging of perfusion of myocardium under exercise stress Dr. Breanne Whittington Work Phone: Start: 01-30-2022 Adult depression scr eening assessment Breanne Whittington MD Work Phone: Start: 01-26-2022 Mri any jt lower ext rem w/o & w/contrast matrl Augustin Carrillo Work Phone: Start: 01-06-2022 Nerve conduction radha dies 5-6 studies Augustin Carrillo Work Phone: Start: 12-20-2021 Radex foot complete minimum 3 views Augustin Carrillo Work Phone: Start: 11-03-2021 Adult depression scr eening assessment Dimitry Pedraza MD Work Phone: Start: 09-12-2021 Adult depression scr eening assessment Yancy Centeno MD Work Phone: Start: 08-25-2021 Ct head/brain w/o co ntrast material Yancy Centeno MD Work Phone: Start: 04-25-2021 Adult depression scr eening assessment Breanne Whittington MD Work Phone: Start: 02-12-2017 Colonoscopy Breanne Singletary MD Work Phone: Start: 12-04-2016 End: 01-01-2017 Echocardiography Gary Shepherd MD Start: 12-04-2016 End: 01-01-2017 Nuclear stress test -exercise Gary Mcnamara MD Start: 11-23-2015 End: 11-23-2015 LUIS Shepherd MD Start: 11-23-2015 End: 11-23-2015 Follow Up Appt 1 year Gary Shepherd MD Start: 08-27-2015 End: 10-05-2015 *Hepatic Function Panel Ale wade PA-C Work Phone: Start: 08-27-2015 End: 10-05-2015 Lipid 1996 panel - Serum or Plasma Ale Sanchez PA-C Work Phone: Start: 05-25-2015 End: 05-25-2015 LUIS Shepherd MD Start: 05-25-2015 End: 05-25-2015 Follow Up Appt 6 months Scottie Toussaint Start: 01-26-2015 End: 02-25-2015 *Hepatic Function Panel Scottie Toussaint Start: 01-26-2015 End: 02-25-2015 Lipid 1996 panel - Serum or Plasma Gary Shepherd MD Start: 12-01-2014 End: 12-01-2014 LUIS Shepherd MD Start: 12-01-2014 End: 12-02-2014 Documentation of current medications Gary Shepherd MD Start: 12-01-2014 End: 12-01-2014 Follow Up Appt 6 months Scottie Toussaint Start: 12-01-2014 End: 01-13-2015 Nuclear stress test -exercise Gary Mcnamara MD Start: 06-29-2014 End: 07-06-2014 *Hepatic Function Panel Scottie Toussaint Start: 06-29-2014 End: 07-06-2014 Lipid 1996 panel - Serum or Plasma Gary Shepherd MD Start: 05-28-2014 End: 05-28-2014 LUIS Shepherd MD Start: 05-28-2014 End: 05-28-2014 Follow Up Appt 6 months Scottie Toussaint Start: 03-14-2014 End: 03-27-2014 *Hepatic Function Panel Ale wade PA-C Work Phone: Start: 03-14-2014 End: 03-27-2014 Lipid 1996 panel - Serum or Plasma Ale Sanchez PA-C Work Phone: Start: 11-18-2013 End: 11-18-2013 LUIS Shepherd MD Start: 11-18-2013 End: 11-18-2013 Follow Up Appt 6 months Scottie Toussaint Start: 09-11-2013 End: 09-15-2013 *Hepatic Function Panel Scottie Toussaint Start: 09-11-2013 End: 09-15-2013 Lipid 1996 panel - Serum or Plasma Gary Shepherd MD Start: 06-05-2013 End: 06-05-2013 LUIS Shepherd MD Start: 06-05-2013 End: 06-05-2013 Follow Up Appt 6 months Scottie Toussaint Start: 03-04-2013 End: 04-03-2013 *Hepatic Function Panel Scottie Toussaint Start: 03-04-2013 End: 03-04-2013 LUIS Shepherd MD Start: 03-04-2013 End: 09-04-2016 Echocardiography Gary Shepherd MD Start: 03-04-2013 End: 03-04-2013 Follow Up Appt 3 months Scottie Toussaint Start: 03-04-2013 End: 04-03-2013 Lipid 1996 panel - Serum or Plasma Gary Shepherd MD Start: 02-14-2013 End: 09-04-2016 Ct thorax w/o & w/contrast material Ale Sanchez PA-C Work Phone: Start: 02-14-2013 End: 02-14-2013 Ecg routine ecg w/least 12 lds w/i&r Ale Sanchez PA-C Work Phone: Start: 02-14-2013 End: 09-04-2016 Nuclear stress test -exercise Ale Sanchez PA-C Work Phone: Start: 01-21-2013 End: 02-14-2013 LUIS Shepherd MD Start: 01-21-2013 End: 02-14-2013 Ecg routine ecg w/least 12 lds w/i&r Gary Shepherd MD Start: 01-21-2013 End: 02-14-2013 Follow Up Appt 6 weeks Gary Shepherd MD Plan of Treatment Date Care Activity Detail Author Start: 2033 RSV Vaccine (1 - 1-d ose 75+ series) RSV Vaccine (1 - 1-dose 75+ series) [facility] Start: 05-30-2029 Lipid panel Lipid Screening [facility] Start: 05-30-2029 Prostate specific an tigen measurement Prostate Cancer Screening Discussion [facility] Start: 05-03-2028 Lipid panel Lipid Screening [facility] Start: 05-03-2028 Prostate specific an tigen measurement Prostate Cancer Screening Discussion [facility] Start: 10-23-2027 Diabetes Screening Diabetes Screenin [facility] Start: 05-30-2027 Diabetes Screening Diabetes Screenin [facility] Start: 02-17-2027 Lipid 1996 panel - S misha or Plasma Lipid Screening [facility] Start: 02-17-2027 Lipid panel Lipid Screening [facility] Start: 02-17-2027 LIPID SCREEN LIPID SCREEN [facility] Start: 02-17-2027 PROSTATE CANCER SCRE ENING DISCUSSION PROSTATE CANCER SCREENING DISCUSSION [facility] Start: 02-17-2027 Prostate specific an tigen measurement Prostate Cancer Screening Discussion [facility] Start: 12-06-2026 [facility] Start: 06-24-2026 LIPID SCREEN LIPID SCREEN [facility] Start: 06-09-2026 Screening for malign ant neoplasm of colon [facility] Start: 03-29-2026 Diabetes Screening Diabetes Screenin [facility] Start: 12-28-2025 End: 12-28-2025 Patient encounter procedure 12/28/2025 1:20 PM EDT Office Visit Cardiology [address] [place] [address] Davion Samayoa MD [address] [facility], [address] [place] [address] 1 year follow up Cardiology Comment on above: 1 year follow up Start: 12-24-2025 PROSTATE CANCER SCRE ENING DISCUSSION PROSTATE CANCER SCREENING DISCUSSION [facility] Start: 12-20-2025 DIABETES SCREEN DIABETES SCREEN [facility] Start: 12-20-2025 Diabetes Screening Diabetes Screenin g [facility] Start: 12-01-2025 End: 12-01-2025 Echocardiography ECHO Cardiology Routine Aortic stenosis, moderate Expected: 12/01/2025, Expires: 12/01/2025 [facility] Work Phone: Comment on above: Expected: 12/01/2025 , Expires: 12/01/2025 Start: 10-22-2025 Annual PCP Team A P Manager kallie Disease Visit Annual PCP Team Chronic Disease Visit [facility] Start: 10-22-2025 Anxiety Screening Anxiety Screening [facility] Start: 10-22-2025 Creatinine measurement Serum Creatin ine [facility] Start: 10-22-2025 Depression Screening Depression Scre ening [facility] Start: 09-23-2025 End: 09-23-2025 Patient encounter procedure Neurology Comment on above: Linked Chris, 1yr f ollow up Start: 09-08-2025 End: 09-08-2025 Patient encounter procedure 09/08/2025 9:40 AM EDT Office Visit Cardiology [address] [place] [address] Aortic stenosis, moderate [I35.0] Cardiology Comment on above: Aortic stenosis, mod erate [I35.0] Start: 08-25-2025 End: 08-25-2025 Patient encounter procedure 08/25/2025 9:00 AM EDT Appointment Radiology [address] [place] [address] Meningioma (HCC) [D32.9] Radiology Comment on above: Meningioma (HCC) [D3 2.9] Start: 06-09-2025 Screening for malign ant neoplasm of colon [facility] Start: 05-30-2025 Creatinine measurement Serum Creatin ine [facility] Start: 05-30-2025 Hepatitis B surface antibody level LDL Cholesterol [facility] Start: 05-01-2025 DIABETES SCREEN DIABETES SCREEN [facility] Start: 04-29-2025 End: 04-29-2025 Patient encounter procedure 04/29/2025 8:00 AM EST Office Visit [facility] [address] [place] [address] Breanne Whittington MD [address] [place] [address] 6 mo/physical [facility] Comment on above: 6 mo/physical Start: 04-25-2025 Annual PCP Team A P Manager kallie Disease Visit Annual PCP Team Chronic Disease Visit [facility] Start: 04-25-2025 Covid-19 Vaccine ( season) Covid-19 Vaccine () [facility] Comment on above: Postponed from 01/12 (Declined at this time) Start: 04-21-2025 DIABETES SCREEN DIABETES SCREEN [facility] Start: 04-10-2025 DIABETES SCREEN DIABETES SCREEN [facility] Start: 03-31-2025 Annual PCP Team A P Manager kallie Disease Visit Annual PCP Team Chronic Disease Visit [facility] Start: 03-20-2025 DIABETES SCREEN DIABETES SCREEN [facility] Start: 03-18-2025 End: 03-18-2025 ambulatory 03/18/2025 3:00 PM EST [facility] On[facility] [address] [place] [address] [place] [address] [place] [address] F/U appt Radiation Oncology Comment on above: F/U appt Start: 02-27-2025 DIABETES SCREEN DIABETES SCREEN [facility] Start: 01-28-2025 End: 01-28-2025 ambulatory 01/28/2025 3:30 PM EDT [facility] [address] [facility] [place] [address] [place] [address] [place] [address] F/U appt Radiation Oncology Comment on above: F/U appt Start: 01-28-2025 End: 01-28-2025 Patient encounter procedure Radiation Oncology Comment on above: Follow up, per [facility] re quest Right leg weakness Start: 01-12-2025 Influenza vaccination Influenza Vacc ine (#1) [facility] Start: 12-31-2024 End: 12-31-2024 Patient encounter procedure 12/31/2024 2:30 PM EDT Office Visit Neurology [address] [place] [address] Lakisha Junior MD [address] [place] [address] Right leg weakness Neurology Comment on above: Right leg weakness Start: 12-31-2024 End: 04-01-2025 Calcium.ionized [Moles/volume] in Blood CALCIUM, IONIZED Lab Routine Fasciculation Expected: 12/31/2024, Expires: 04/01/[address] [facility] Comment on above: Expected: 12/31/2024 , Expires: 04/01/2025 Start: 12-31-2024 End: 04-01-2025 Parathyrin.intact [Mass/volume] in Serum or Plasma [facility] INTACT Lab Routine Fasciculation Expected: 12/31/2024, Expires: 04/01/2025 [facility] Work Phone: Comment on above: Expected: 12/31/2024 , Expires: 04/01/2025 Start: 12-06-2024 Creatinine measurement Serum Creatin ine [facility] Start: 12-01-2024 End: 12-01-2024 Patient encounter procedure 12/01/2024 1:00 PM EDT Office Visit Cardiology [address] [place] [address] Davion Samayoa MD [address], [address] [place], [place] [id number] New consult patient having records sent here from [facility] Cardiology Comment on above: New consult patient having records sent here from [facility] Start: 11-10-2024 Influenza vaccination Influenza Vacc ine (#1) [facility] Comment on above: Postponed from 01/12 (Declined at this time) Start: 10-30-2024 Annual PCP Team A P Manager kallie Disease Visit Annual PCP Team Chronic Disease Visit [facility] Start: 10-30-2024 Anxiety Screening Anxiety Screening [facility] Start: 06-19-2025 Covid-19 Vaccine ( season) Covid-19 Vaccine ( season) [facility] Comment on above: Postponed from 08/24 (Declined at this time) Start: 10-30-2024 Depression Screening Depression Scre ening [facility] Start: 10-30-2024 Pneumococcal Vaccine : 50+ (1 of 1 - PCV) Pneumococcal Vaccine: 50+ (1 of 1 - PCV) [facility] Comment on above: Postponed from 04/05 (Declined at this time) Start: 10-30-2024 Pneumococcal Vaccine : 65+ (1 of 1 - PCV) Pneumococcal Vaccine: 65+ (1 of 1 - PCV) [facility] Comment on above: Postponed from 04/05 (Declined at this time) Start: 10-30-2024 RSV Vaccine (1 - 1-d ose 60+ series) RSV Vaccine (1 - 1-dose 60+ series) [facility] Comment on above: Postponed from 04/05 (Declined at this time) Start: 10-30-2024 Urine microalbumin profile DTaP,Tdap,Td Vaccine (2 - Td or Tdap) [facility] Comment on above: Postponed from 09/15 (Declined at this time) Start: 10-22-2024 End: 10-22-2024 Patient encounter procedure 10/22/2024 2:40 PM EDT Office Visit [facility] [address] [place] [address] Breanne Whittington MD [address] [place] [id number] 6 mo follow up Family [facility] [place] Comment on above: 6 mo follow up Start: 10-22-2024 End: 01-21-2025 Comprehensive metabolic 2000 panel - Serum or Plasma [facility] Work Phone: Comment on above: Expected: 10/22/2024 , Expires: 01/21/2025 Start: 10-22-2024 End: 01-21-2025 levETIRAcetam [Mass/volume] in Serum or Plasma [facility] Comment on above: Expected: 10/22/2024 , Expires: 01/21/2025 Start: 10-20-2024 End: 10-20-2024 Patient encounter procedure 10/20/2024 1:00 PM EDT Office Visit Cardiology [address] [place] [id number] Davion Samayoa MD [address] [facility], [address] [place] [address] New consult patient having records sent here from [facility] Cardiology Comment on above: New consult patient having records sent here from [facility] Start: 10-01-2024 End: 10-01-2024 Patient encounter procedure 10/01/2024 3:00 PM EDT Office Visit Radiation Oncology [address] [place] [address] [place] [address] [place], [place] [phone] New consult radionecrosis/cerebral edema Radiation Oncology Comment on above: New consult radionec rosis/cerebral edema Start: 09-17-2024 End: 09-17-2024 Patient encounter procedure Neurology Comment on above: 1 yr f/u with ANTHONY 1yr follow up Linked [employer], 1yr f ollow up Start: 09-16-2024 End: 09-16-2024 Patient encounter procedure 09/16/2024 1:00 PM EDT Office Visit Neurology [address] [place] [address] Miguelangel Spence, [employer]CHANT [employer]ER.[employer]ARM[employer] [address] [place] [address] 1 yr f/u with ANTHONY Neurology Comment on above: 1 yr f/u with ANTHONY Start: 09-03-2024 End: 09-03-2024 Follow-up encounter 09/03/2024 8:30 AM EDT [facility] [address] [place] [address] Yancy Centeno MD [address] [address] meningioma follow up= 60min per Dr [facility] Comment on above: meningioma follow up = 60min per Dr Devlin Start: 09-01-2024 End: 09-01-2024 Patient encounter procedure 09/01/2024 10:00 AM EDT Appointment Radiology [address] [place] [address] Meningioma (HCC) [D32.9] Radiology Comment on above: Meningioma (HCC) [D3 2.9] Start: 08-04-2024 End: 08-04-2024 Patient encounter procedure 08/04/2024 8:30 AM EDT Appointment [facility] [address] [place] [address] Orquidea Ley MD [address] [address] Colon [facility] Comment on above: Colon Start: 06-24-2024 DIABETES SCREEN DIABETES SCREEN [facility] Start: 06-09-2024 End: 06-09-2024 Patient encounter procedure [facility] Comment on above: Colonoscopy Start: 05-31-2024 End: 05-31-2025 HEP ACUTE PANEL/RNA HEP ACUTE PANEL/RNA Lab Routine Elevated liver enzymes Expected: 05/31/2024, Expires: 05/31/[address] [facility] Comment on above: Expected: 05/31/2024 , Expires: 05/31/2025 Start: 05-31-2024 End: 05-31-2025 Hepatic function 2000 panel - Serum or Plasma HEPATIC FUNCTION PNL Lab Routine Elevated liver enzymes Expected: 05/31/2024, Expires: 05/31/2025 [facility] Work Phone: Comment on above: Expected: 05/31/2024 , Expires: 05/31/2025 Start: 05-14-2024 Advance Directive Discussion Advance Directive Discussion [facility] Start: 05-03-2024 Hepatitis B surface antibody level LDL Cholesterol [facility] Start: 04-25-2024 Annual PCP Team A P Manager kallie Disease Visit Annual PCP Team Chronic Disease Visit [facility] Start: 04-25-2024 End: 07-25-2024 CBC W Auto Differential panel - Blood COMPLETE BLOOD COUNT AND DIFFERENTIAL Lab Routine CKD (chronic kidney disease) stage 1, GFR 90 ml/min or greater Expected: 04/25/2024, Expires: 07/25/2024 [facility] Work Phone: Comment on above: Expected: 04/25/2024 , Expires: 07/25/2024 Start: 04-25-2024 End: 07-25-2024 Comprehensive metabolic 2000 panel - Serum or Plasma COMPREHENSIVE METABOLIC PANEL Lab Routine Mixed hyperlipidemia CKD (chronic kidney disease) stage 1, GFR 90 ml/min or greater Expected: 04/25/2024, Expires: 07/25/[address] [facility] Comment on above: Expected: 04/25/2024 , Expires: 07/25/2024 Start: 04-25-2024 End: 07-25-2024 levETIRAcetam [Mass/volume] in Serum or Plasma LEVETIRACETAM Lab Routine Seizure (HCC) Expected: 04/25/2024, Expires: 07/25/[address] [facility] Comment on above: Expected: 04/25/2024 , Expires: 07/25/2024 Start: 04-25-2024 End: 07-25-2024 Lipid 1996 panel - Serum or Plasma LIPID PANEL BASIC Lab Routine Mixed hyperlipidemia Expected: 04/25/2024, Expires: 07/25/[address] [facility] Comment on above: Expected: 04/25/2024 , Expires: 07/25/2024 Start: 04-25-2024 End: 07-25-2024 PSA/PROSTATE SPECIFIC ANTIGEN SCREENING PSA/PROSTATE SPECIFIC ANTIGEN SCREENING Lab Routine Screening for prostate cancer Expected: 04/25/2024, Expires: 07/25/[address] [facility] Comment on above: Expected: 04/25/2024 , Expires: 07/25/2024 Start: 04-25-2024 End: 04-25-2024 Patient encounter procedure 04/25/2024 10:20 AM EST Office Visit [facility] [address] [facility] [place] [address] Breanne Whittington MD [address] [place] [address] 6 month follow up [facility] Comment on above: 6 month follow up Start: 04-21-2024 End: 04-21-2024 Patient encounter procedure Cardiology Comment on above: New consult patient having records sent here from [facility] 6 month follow up keep as late as poss aleena [place] appt at 9am Start: 04-18-2024 End: 04-18-2024 Patient encounter procedure 04/18/2024 9:40 AM EST Office Visit Family [facility] [address] [place] [address] Fouzia Amado APRN.[employer]ARMWORK[employer] [address] [place], [place] [id number] sinus infection [facility] Comment on above: sinus infection Start: 03-29-2024 Annual PCP Team A P Manager kallie Disease Visit Annual PCP Team Chronic Disease Visit [facility] Start: 03-29-2024 Creatinine measurement Serum Creatin ine [facility] Start: 03-29-2024 Serum Creatinine Serum Creatinine Cl [facility] Start: 03-18-2024 End: 03-18-2024 Patient encounter procedure [facility] Comment on above: History of colonic p olyps [Z86.010] Start: 03-07-2024 End: 03-07-2024 ambulatory 03/07/2024 10:30 AM EDT [facility] [place] [address] [place] [address] Yancy Centeno MD [address] [place] [address] VV only- Arrange on a Sunday- [facility] [place] Comment on above: VV only- Arrange on a Sunday- Start: 01-22-2024 End: 01-22-2024 Patient encounter procedure 01/22/2024 8:30 AM EDT Office Visit [facility] [address] [place] [address] Pratibha Fischer [address] [place] [address] History of colonic polyps [Z86.010] [facility] Comment on above: History of colonic p olyps [Z86.010] Start: 01-17-2024 Colonoscopy COL[address] [facility] Start: 01-17-2024 COLORECTAL CANCER SCREENING COLORECTAL CANCER SCREENING [facility] Start: 01-17-2024 Screening for malign ant neoplasm of colon [facility] Start: 01-13-2024 Covid-19 Vaccine ( season) Covid-19 Vaccine () [facility] Start: 01-13-2024 Covid-19 Vaccine ( season) Covid-19 Vaccine () [facility] Start: 01-13-2024 Influenza vaccination Influenza Vacc ine (#1) [facility] Start: 12-21-2023 SERUM CREATININE SERUM CREATININE Cl [facility] Start: 12-07-2023 End: 12-07-2023 Patient encounter procedure General Surgery Comment on above: History of colonic p olyps [Z86.[address] Juan Antonio Peterson History of colonic p olyps, Start: 12-06-2023 End: 12-06-2023 Patient encounter procedure 12/06/2023 9:30 AM EDT [facility] [address] [id number] Danielle Khan PA-C [address] [place] [address] Meningioma (HCC) [D32.9]; Brain edema (HCC) [G93.6]; Seizure (HCC) [R56.9] [facility] Comment on above: Meningioma (HCC) [D3 2.9]; Brain edema (HCC) [G93.6]; Seizure (HCC) [R56.9] Start: 11-29-2023 ANNUAL PCP TEAM DIRECTOR [employer] MARKET[employer] KALLIE DISEASE VISIT ANNUAL PCP TEAM CHRONIC DISEASE VISIT [facility] Start: 10-31-2023 End: 01-30-2024 CBC W Auto Differential panel - Blood COMPLETE BLOOD COUNT AND DIFFERENTIAL Lab Routine Medication monitoring encounter Expected: 10/31/2023, Expires: 01/30/2024 [facility] Work Phone: Comment on above: Expected: 10/31/2023 , Expires: 01/30/2024 Start: 10-31-2023 End: 01-30-2024 Comprehensive metabolic 2000 panel - Serum or Plasma COMPREHENSIVE METABOLIC PANEL Lab Routine Medication monitoring encounter Expected: 10/31/2023, Expires: 01/30/[address] [facility] Comment on above: Expected: 10/31/2023 , Expires: 01/30/2024 Start: 10-31-2023 End: 01-30-2024 levETIRAcetam [Mass/volume] in Serum or Plasma LEVETIRACETAM Lab Routine Medication monitoring encounter Expected: 10/31/2023, Expires: 01/30/[address] [facility] Comment on above: Expected: 10/31/2023 , Expires: 01/30/2024 Start: 10-31-2023 End: 10-31-2023 Patient encounter procedure 10/31/2023 10:40 AM EDT Office Visit Family [facility] [place] [address] [place] [address] Breanne Whittington MD [address] [place] [address] 6 month follow up. [address] Whittington [facility] Comment on above: 6 month follow up. [address] Whittington Start: 10-25-2023 Pneumococcal Vaccine : 65+ (1 - PCV) Pneumococcal Vaccine: 65+ (1 - PCV) [facility] Comment on above: Postponed from 04/05 (Declined at this time) Start: 10-25-2023 Pneumococcal Vaccine : 65+ (1 of 1 - PCV) Pneumococcal Vaccine: 65+ (1 of 1 - PCV) [facility] Comment on above: Postponed from 04/05 (Declined at this time) Start: 10-11-2023 End: 10-11-2023 Patient encounter procedure 10/11/2023 8:45 AM EDT Office Visit Podiatry [address] [place] [phone] Augustin Carrlilo [address] [place] [phone] rt foot pain Podiatry Comment on above: rt foot pain Start: 10-02-2023 End: 10-02-2023 Patient encounter procedure 10/02/2023 11:00 AM EDT Office Visit Podiatry [address] [place], [place] [phone] DeidraVandana boltonew [address] [place], [place] [phone] rt foot pain Podiatry Comment on above: rt foot pain Start: 09-26-2023 End: 09-26-2023 ambulatory 09/26/2023 4:30 PM EDT [facility] Neurology [address] [place] [address] Lakisha Junior MD [address] [place] [address] Neurological assessment right foot pain. Neurology Comment on above: Neurological assessm ent right foot pain. Start: 09-16-2023 Tetanus vaccination TET[facility] Start: 09-16-2023 Urine microalbumin profile [facility] Start: 08-25-2023 Covid-19 Vaccine ( season) Covid-19 Vaccine ( season) [facility] Start: 06-14-2023 Medicare Annual Well ness Visit Medicare Annual Wellness Visit [facility] Start: 05-30-2023 ANNUAL PCP TEAM DIRECTOR [employer] MARK[employer] KALLIE DISEASE VISIT ANNUAL PCP TEAM CHRONIC DISEASE VISIT [facility] Start: 05-14-2023 Advance Directive Discussion Advance Directive Discussion [facility] Start: 05-14-2023 Behavioral Health Screening Behavioral Health Screening [facility] Start: 05-14-2023 Depression Assessment Depression Ass essment [facility] Start: 05-01-2023 SERUM CREATININE SERUM CREATININE Cl [facility] Start: 04-10-2023 SERUM CREATININE SERUM CREATININE Cl [facility] Start: 2023 Advance Directive Discussion Advance Directive Discussion [facility] Start: 03-31-2023 ANNUAL PCP TEAM DIRECTOR [employer] MARK[employer] KALLIE DISEASE VISIT ANNUAL PCP TEAM CHRONIC DISEASE VISIT [facility] Start: 03-29-2023 End: 06-28-2023 Comprehensive metabolic 2000 panel - Serum or Plasma [facility] Work Phone: Comment on above: Expected: 03/29/2023 , Expires: 06/28/2023 Start: 03-29-2023 End: 06-28-2023 Magnesium [Mass/volume] in Serum or Plasma [facility] Work Phone: Comment on above: Expected: 03/29/2023 , Expires: 06/28/2023 Start: 03-29-2023 End: 06-28-2023 Thyrotropin [Units/volume] in Serum or Plasma [facility] Work Phone: Comment on above: Expected: 03/29/2023 , Expires: 06/28/2023 Start: 03-20-2023 SERUM CREATININE SERUM CREATININE [facility] Start: 02-27-2023 SERUM CREATININE SERUM CREATININE [facility] Start: 02-17-2023 Hepatitis B surface antibody level LDL CHOLESTEROL [facility] Start: 01-30-2023 Adult depression screening assessment DEPRESSION SCREENING [facility] Start: 01-30-2023 ANNUAL PCP TEAM DIRECTOR [employer] MARK[employer] KALLIE DISEASE VISIT ANNUAL PCP TEAM CHRONIC DISEASE VISIT [facility] Start: 01-29-2023 End: 03-31-2023 levETIRAcetam [Mass/volume] in Serum or Plasma LEVETIRACETAM Lab Routine Meningioma (HCC) Seizures (HCC) Expected: 01/29/2023, Expires: 03/31/2023 [facility] Work Phone: Comment on above: Expected: 01/29/2023 , Expires: 03/31/2023 Start: 01-16-2023 Colsc flx w/rmvl of tumor polyp lesion snare tq COLONOSCOPY W/LESION REMOVAL [facility] Start: 01-16-2023 Colsc flx with direc alexa submucosal njx any sbst COLONOSCOPY SUBMUCOUS NJX [facility] Start: 01-16-2023 Patient discharge [facility] Start: 01-12-2023 Covid-19 Vaccine () Covid-19 Vaccine () [facility] Start: 01-12-2023 Influenza vaccination [facility] Start: 11-29-2022 ANNUAL PCP TEAM DIRECTOR T[employer] MARKETING KALLIE DISEASE VISIT ANNUAL PCP TEAM CHRONIC DISEASE VISIT [facility] Start: 11-06-2022 End: 01-06-2023 levETIRAcetam [Mass/volume] in Serum or Plasma LEVETIRACETAM Lab Routine Meningioma (HCC) Brain edema (HCC) Seizure (HCC) Focal motor seizure (HCC) Expected: 11/06/2022, Expires: 01/06/2023 [facility] Work Phone: Comment on above: Expected: 11/06/2022 , Expires: 01/06/2023 Start: 11-03-2022 Adult depression screening assessment DEPRESSION SCREENING [facility] Start: 09-12-2022 Adult depression screening assessment DEPRESSION SCREENING [facility] Start: 06-24-2022 Hepatitis B surface antibody level LDL CHOLESTEROL [facility] Start: 06-24-2022 SERUM CREATININE SERUM CREATININE Cl [facility] Start: 06-01-2022 ANNUAL PCP TEAM DIRECTOR T[employer] MARKETING KALLIE DISEASE VISIT ANNUAL PCP TEAM CHRONIC DISEASE VISIT [facility] Start: 05-14-2022 DEPRESSION ASSESSMENT DEPRESSION ASS ESSMENT [facility] Start: 05-12-2022 End: 07-12-2022 Thyrotropin [Units/volume] in Serum or Plasma TSH BLD Lab Routine Paresthesia Expected: 05/12/2022, Expires: 07/12/2022 [facility] Work Phone: Comment on above: Expected: 05/12/2022 , Expires: 07/12/2022 Start: 04-25-2022 Adult depression screening assessment DEPRESSION SCREENING [facility] Start: 03-31-2022 End: 05-31-2022 Cobalamin (Vitamin B12) [Mass/volume] in Serum or Plasma VITAMIN B12 BLOOD Lab Routine Paresthesia Expected: 03/31/2022, Expires: 05/31/2022 [facility] Work Phone: Comment on above: Expected: 03/31/2022 , Expires: 05/31/2022 Start: 03-31-2022 End: 05-31-2022 Folate [Mass/volume] in Serum or Plasma FOLATE SERUM Lab Routine Paresthesia Expected: 03/31/2022, Expires: 05/31/2022 [facility] Work Phone: Comment on above: Expected: 03/31/2022 , Expires: 05/31/2022 Start: 03-31-2022 End: 05-31-2022 Hemoglobin A1c in Blood HGB A1C Lab Routine Hyperglycemia Expected: 03/31/2022, Expires: 05/31/2022 [facility] Work Phone: Comment on above: Expected: 03/31/2022 , Expires: 05/31/2022 Start: 03-31-2022 End: 05-31-2022 PROTEIN ELECTROPHORESIS SERUM W/INTERP PROTEIN ELECTROPHORESIS SERUM W/INTERP Lab Routine Paresthesia Expected: 03/31/2022, Expires: 05/31/2022 [facility] Work Phone: Comment on above: Expected: 03/31/2022 , Expires: 05/31/2022 Start: 03-31-2022 End: 05-31-2022 VITAMIN B1 (THIAMINE), WHOLE BLOOD VITAMIN B1 (THIAMINE), WHOLE BLOOD Lab Routine Paresthesia Expected: 03/31/2022, Expires: 05/31/2022 [facility] Work Phone: Comment on above: Expected: 03/31/2022 , Expires: 05/31/2022 Start: 02-12-2022 Colonoscopy COLONOSCOPY [facility] Start: 02-12-2022 COLORECTAL CANCER SCREENING COLORECTAL CANCER SCREENING [facility] Start: 01-16-2022 COVID-19 VACCINE (4 - Booster for Maame series) COVID-19 VACCINE (4 - Booster for Maame series) [facility] Start: 01-12-2022 Influenza vaccination INFLUENZA (#1) [facility] Start: 01-12-2022 End: 03-14-2022 PSA/PROSTSPECAG SCRN PSA/PROSTSPECAG SCRN Lab Routine Screening for prostate cancer Expected: 01/12/2022, Expires: 03/14/2022 [facility] Work Phone: Comment on above: Expected: 01/12/2022 , Expires: 03/14/2022 Start: 11-21-2021 End: 01-21-2022 CBC W Auto Differential panel - Blood CBC + DIFF Lab Routine Meningioma (HCC) Seizure (HCC) Brain edema (HCC) Recurrent seizures (HCC) Muscle spasticity Radionecrosis Expected: 11/21/2021, Expires: 01/21/2022 [facility] Work Phone: Comment on above: Expected: 11/21/2021 , Expires: 01/21/2022 Start: 11-21-2021 End: 01-21-2022 Comprehensive metabolic 2000 panel - Serum or Plasma COMP METABOLIC PANEL Lab Routine Meningioma (HCC) Seizure (HCC) Brain edema (HCC) Recurrent seizures (HCC) Muscle spasticity Radionecrosis Expected: 11/21/2021, Expires: 01/21/2022 [facility] Work Phone: Comment on above: Expected: 11/21/2021 , Expires: 01/21/2022 Start: 11-21-2021 End: 01-21-2022 LACOSAMIDE LACOSAMIDE Lab Routine Meningioma (HCC) Seizure (HCC) Brain edema (HCC) Recurrent seizures (HCC) Muscle spasticity Radionecrosis Expected: 11/21/2021, Expires: 01/21/2022 [facility] Work Phone: Comment on above: Expected: 11/21/2021 , Expires: 01/21/2022 Start: 11-21-2021 End: 01-21-2022 levETIRAcetam [Mass/volume] in Serum or Plasma LEVETIRACETAM Lab Routine Meningioma (HCC) Seizure (HCC) Brain edema (HCC) Recurrent seizures (HCC) Muscle spasticity Radionecrosis Expected: 11/21/2021, Expires: 01/21/2022 [facility] Work Phone: Comment on above: Expected: 11/21/2021 , Expires: 01/21/2022 Start: 10-17-2021 End: 12-17-2021 LACOSAMIDE LACOSAMIDE Lab Routine Recurrent seizures (HCC) Encounter for therapeutic drug level monitoring Expected: 10/17/2021, Expires: 12/17/2021 [facility] Work Phone: Comment on above: Expected: 10/17/2021 , Expires: 12/17/2021 Start: 10-17-2021 End: 12-17-2021 levETIRAcetam [Mass/volume] in Serum or Plasma LEVETIRACETAM Lab Routine Recurrent seizures (HCC) Encounter for therapeutic drug level monitoring Expected: 10/17/2021, Expires: 12/17/2021 [facility] Work Phone: Comment on above: Expected: 10/17/2021 , Expires: 12/17/2021 Start: 09-19-2021 End: 11-19-2021 levETIRAcetam [Mass/volume] in Serum or Plasma LEVETIRACETAM Lab Routine Encounter for therapeutic drug level monitoring Expected: 09/19/2021 (Approximate), Expires: 11/19/2021 [facility] Work Phone: Comment on above: Expected: 09/19/2021 (Approximate), Expires: 11/19/2021 Start: 09-14-2021 End: 11-14-2021 LACOSAMIDE LACOSAMIDE Lab Routine Recurrent seizures (HCC) Expected: 09/14/2021, Expires: 11/14/2021 [facility] Work Phone: Comment on above: Expected: 09/14/2021 , Expires: 11/14/2021 Start: 07-20-2021 COVID-19 VACCINE (3 - Booster for Maame series) COVID-19 VACCINE (3 - Booster for Maame series) [facility] Start: 05-14-2021 DEPRESSION ASSESSMENT DEPRESSION ASS ESSMENT [facility] Start: 2018 RSV Vaccine (1 - 1-d ose 60+ series) RSV Vaccine (1 - 1-dose 60+ series) [facility] Start: 09-17-2017 End: 09-17-2017 Appointment [facility]ointment [facility] Work Phone: Start: 04-16-2017 End: 04-16-2017 Appointment [facility]ointment [facility] Work Phone: Start: 01-26-2017 End: 01-26-2017 Colonoscopy flx dx w/collj spec when pfrmd Colonoscopy [facility] Work Phone: Start: 01-09-2017 End: 01-09-2017 HOP WEIGHER HOP WEIGHER [facility] Work Phone: Start: 01-09-2017 End: 01-09-2017 Follow Up Appt 1 year Follow Up Appt 1 year [facility] Work Phone: Start: 12-04-2016 End: 12-04-2016 Echocardiography Echocardiogram (complete) [facility] Work Phone: Start: 12-04-2016 End: 12-04-2016 Nuclear stress test -exercise Nuclear stress test -exercise [facility] Work Phone: Start: 11-23-2015 End: 11-23-2015 HOP WEIGHER HOP WEIGHER [facility] Work Phone: Start: 11-23-2015 End: 11-23-2015 Follow Up Appt 1 year Follow Up Appt 1 year [facility] Work Phone: Start: 08-27-2015 End: 10-05-2015 *Hepatic Function Panel *Hepatic Function Panel [facility] Work Phone: Start: 08-27-2015 End: 10-05-2015 Lipid panel [AGGREGATE] *Lipid Profile CC PCP [facility] Work Phone: Start: 05-25-2015 End: 05-25-2015 HOP WEIGHER HOP WEIGHER [facility] Work Phone: Start: 05-25-2015 End: 05-25-2015 Follow Up Appt 6 months Follow Up Appt 6 months [facility] Work Phone: Start: 01-26-2015 End: 02-25-2015 *Hepatic Function Panel *Hepatic Function Panel [facility] Work Phone: Start: 01-26-2015 End: 02-25-2015 Lipid panel [AGGREGATE] *Lipid Profile CC PCP [facility] Work Phone: Start: 12-01-2014 End: 12-01-2014 HOP WEIGHER HOP WEIGHER [facility] Work Phone: Start: 12-01-2014 End: 12-01-2014 Follow Up Appt 6 months Follow Up Appt 6 months [facility] Work Phone: Start: 12-01-2014 End: 12-01-2014 Nuclear stress test -exercise Nuclear stress test -exercise [facility] Work Phone: Start: 06-29-2014 End: 07-15-2014 *Hepatic Function Panel *Hepatic Function Panel [facility] Work Phone: Start: 06-29-2014 End: 07-15-2014 Lipid panel [AGGREGATE] *Lipid Profile CC PCP [facility] Work Phone: Start: 05-28-2014 End: 05-28-2014 HOP WEIGHER HOP WEIGHER [facility] Work Phone: Start: 05-28-2014 End: 05-28-2014 Follow Up Appt 6 months Follow Up Appt 6 months [facility] Work Phone: Start: 03-14-2014 End: 03-27-2014 *Hepatic Function Panel *Hepatic Function Panel [facility] Work Phone: Start: 03-14-2014 End: 03-27-2014 Lipid panel [AGGREGATE] *Lipid Profile CC PCP [facility] Work Phone: Start: 11-18-2013 End: 11-18-2013 HOP WEIGHER HOP WEIGHER [facility] Work Phone: Start: 11-18-2013 End: 11-18-2013 Follow Up Appt 6 months Follow Up Appt 6 months [facility] Work Phone: Start: 09-11-2013 End: 09-12-2013 *Hepatic Function Panel *Hepatic Function Panel [facility] Work Phone: Start: 09-11-2013 End: 09-12-2013 Lipid panel [AGGREGATE] *Lipid Profile CC PCP [facility] Work Phone: Start: 06-05-2013 End: 06-05-2013 HOP WEIGHER HOP WEIGHER [facility] Work Phone: Start: 06-05-2013 End: 06-05-2013 Follow Up Appt 6 months Follow Up Appt 6 months [facility] Work Phone: Start: 03-04-2013 End: 04-03-2013 *Hepatic Function Panel *Hepatic Function Panel [facility] Work Phone: Start: 03-04-2013 End: 03-04-2013 HOP WEIGHER HOP WEIGHER [facility] Work Phone: Start: 03-04-2013 End: 03-04-2013 Echocardiography Echocardiogram (complete) [facility] Work Phone: Start: 03-04-2013 End: 03-04-2013 Follow Up Appt 3 months Follow Up Appt 3 months [facility] Work Phone: Start: 03-04-2013 End: 04-03-2013 Lipid panel [AGGREGATE] *Lipid Profile CC PCP [facility] Work Phone: Start: 02-14-2013 End: 02-14-2013 Ct thorax w/o & w/contrast material CT Chest with and without Contrast [facility] Work Phone: Start: 02-14-2013 End: 02-14-2013 Ecg routine ecg w/least 12 lds w/i&r EKG (In office) [facility] Work Phone: Start: 02-14-2013 End: 02-14-2013 Nuclear stress test -exercise Nuclear stress test -exercise [facility] Work Phone: Start: 01-21-2013 End: 01-21-2013 Cardiac Rehab [facility] Work Phone: Start: 01-21-2013 End: 02-14-2013 HOP WEIGHER HOP WEIGHER [facility] Work Phone: Start: 01-21-2013 End: 02-14-2013 Ecg routine ecg w/least 12 lds w/i&r EKG (In office) [facility] Work Phone: Start: 01-21-2013 End: 02-14-2013 Follow Up Appt 6 weeks Follow Up Appt 6 weeks [facility] Work Phone: Start: 2008 Pneumococcal Vaccine : 50+ (1 of 1 - PCV) Pneumococcal Vaccine: 50+ (1 of 1 - PCV) [facility] Start: 2008 Prostate specific an tigen measurement PROSTATE CANCER SCREENING DISCUSSION [facility] Start: 2003 COLOGUARD (FIT-DNA) COLOGUARD (FIT-D NA) [facility] Start: [address] COLONOGRAPHY [facility] Start: 2003 FECAL OCCULT BLOOD FECAL OCCULT BLOO D [facility] Start: 2003 Screening for malign ant neoplasm of colon [facility] Start: 2003 SIGMOIDOSCOPY SIGMOIDOSCOPY [facility] Start: 1998 Lipid panel LIPID SCREENING [facility] Start: 1973 HIV screening HIV SCREENING DISCUSSI ON [facility] Start: 1964 PNEUMOCOCCAL (1 - PCV) PNEUMOCOCCAL (1 - PCV) [facility] Start: 1958 Hepatitis C screening HEPATITI S C VIRUS SCREENING [facility] End: 02-29-2024 Arthrocnt aspir&/inj small jt/bursaw/us rec rprt US ASP/INJ HAND/FINGER/FOOT/TOE JT BURSA RT Radiology Routine Bursitis of right foot Numbness Neuroma 1 Occurrences starting 01/30/2023 until 02/29/2024 [facility] Work Phone: Comment on above: 1 Occurrences starti ng 01/30/2023 until 02/29/2024 End: 02-20-2023 CBC W Auto Differential panel - Blood CBC + DIFF Lab STAT Brain tumor (HCC) Every 3 weeks for 4 Occurrences starting 02/20/2022 until 02/20/2023 [facility] Work Phone: Comment on above: Every 3 weeks for 4 Occurrences starting 02/20/2022 until 02/20/2023 End: 02-20-2023 Comprehensive metabolic 2000 panel - Serum or Plasma COMP METABOLIC PANEL Lab STAT Brain tumor (HCC) Every 3 weeks for 4 Occurrences starting 02/20/2022 until 02/20/2023 [facility] Work Phone: Comment on above: Every 3 weeks for 4 Occurrences starting 02/20/2022 until 02/20/2023 End: 09-14-2022 ECG COMPLETE ECG COMPLETE ECG Routine Recurrent seizures (HCC) 1 Occurrences starting 09/14/2021 until 09/14/2022 [facility] Work Phone: Comment on above: 1 Occurrences starti ng 09/14/2021 until 09/14/2022 ECG COMPLETE ECG COMPLETE ECG Routine Irregular heartbeat Ordered: 03/29/2023 [facility] Work Phone: Comment on above: Ordered: 03/29/2023 End: 12-20-2022 EMG(NEURO/NI) EMG(NEURO/NI) EMG Routine Foot pain, right Numbness 1 Occurrences starting 12/20/2021 until 12/20/2022 [facility] Work Phone: Comment on above: 1 Occurrences starti ng 12/20/2021 until 12/20/2022 End: 02-01-2023 EPIL AMBULATORY EEG EPIL AMBULATORY EEG NEUROLOGY Routine Meningioma (HCC) Seizure (HCC) Recurrent seizures (HCC) 1 Occurrences starting 02/01/2022 until 02/01/2023 [facility] Work Phone: Comment on above: 1 Occurrences starti ng 02/01/2022 until 02/01/2023 End: 02-01-2023 EPIL EEG ROUTINE EPIL EEG ROUTINE NEUROLOGY Routine Meningioma (HCC) Seizure (HCC) Recurrent seizures (HCC) 1 Occurrences starting 02/01/2022 until 02/01/2023 [facility] Work Phone: Comment on above: 1 Occurrences starti ng 02/01/2022 until 02/01/2023 EXTRA DRAW URINE EXTRA DRAW URIN E Lab Routine Brain tumor (HCC) 02/27/2022 3:34 PM EDT [facility] Work Phone: LAB EXTRA TUBES LAB EXTRA TUBES Lab Routine Brain tumor (HCC) 02/27/2022 3:34 PM EDT [facility] Work Phone: End: 10-16-2024 MR Brain WO and W contrast IV MRI BRAIN WO/W IVCON Radiology Routine Meningioma (HCC) 1 Occurrences starting 09/17/2023 until 10/16/2024 [facility] Work Phone: Comment on above: 1 Occurrences starti ng 09/17/2023 until 10/16/2024 End: 10-03-2025 MR Brain WO and W contrast IV MRI BRAIN WO/W IVCON Radiology Routine Meningioma (HCC) 1 Occurrences starting 09/03/2024 until 10/03/2025 [facility] Work Phone: Comment on above: 1 Occurrences starti ng 09/03/2024 until 10/03/2025 End: 02-16-2023 Mri any jt lower extrem w/o & w/contrast matrl MRI ANKLE WO/W IVCON RT Radiology Routine Chronic pain of right ankle 1 Occurrences starting 01/17/2022 until 02/16/2023 [facility] Work Phone: Comment on above: 1 Occurrences starti ng 01/17/2022 until 02/16/2023 End: 03-11-2023 Mri brain brain stem w/o w/contrast material MRI BRAIN WO/W IVCON Radiology Routine Meningioma (HCC) 1 Occurrences starting 02/09/2022 until 03/11/2023 [facility] Work Phone: Comment on above: 1 Occurrences starti ng 02/09/2022 until 03/11/2023 End: 05-24-2023 Mri brain brain stem w/o w/contrast material MRI BRAIN WO/W IVCON Radiology Routine 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) 1 Occurrences starting 04/24/2022 until 05/24/2023 [facility] Work Phone: Comment on above: 1 Occurrences starti ng 04/24/2022 until 05/24/2023 End: 09-02-2023 Mri brain brain stem w/o w/contrast material MRI BRAIN WO/W IVCON Radiology Routine Meningioma (HCC) 1 Occurrences starting 08/03/2022 until 09/02/2023 [facility] Work Phone: Comment on above: 1 Occurrences starti ng 08/03/2022 until 09/02/2023 Patient Education HYPERLIPIDEMIA , CHEST%20PAIN%2C%20AMBULA TORY%20CARE [facility] Work Phone: Patient referral [facility] Work Phone: End: 02-20-2023 Protein/Creatinine [Mass Ratio] in Urine PROTEIN CREATININE RATIO Lab Routine Brain tumor (HCC) Every 3 weeks for 4 Occurrences starting 02/20/2022 until 02/20/2023 [facility] Work Phone: Comment on above: Every 3 weeks for 4 Occurrences starting 02/20/2022 until 02/20/2023 Protein/Creatinine [ Mass Ratio] in Urine PROTEIN CREATININE RATIO Lab Routine Brain tumor (HCC) 02/27/2022 4:46 PM EDT [facility] Work Phone: End: 04-30-2023 Radex spine cervical 4 or 5 views XR CERV OTHER 4V AP/LAT/OBL Radiology Routine Neck pain 1 Occurrences starting 03/31/2022 until 04/30/2023 [facility] Work Phone: Comment on above: 1 Occurrences starti ng 03/31/2022 until 04/30/2023 End: 12-06-2024 Screening colonoscopy COLONOSCOPY SCREENING Endoscopy Routine History of colonic polyps 1 Occurrences starting 12/07/2023 until 12/06/2024 [facility] Work Phone: Comment on above: 1 Occurrences starti ng 12/07/2023 until 12/06/2024 SURGICAL PATHOLOGY [facility] Work Phone: Comment on above: Release Upon Orderin g for 1 Occurrences starting 06/09/2024, 1 completed End: 02-20-2023 URINALYSIS, DIPSTICK ONLY URINALYSIS, DIPSTICK ONLY Lab STAT Brain tumor (HCC) Every 3 weeks for 4 Occurrences starting 02/20/2022 until 02/20/2023 [facility] Work Phone: Comment on above: Every 3 weeks for 4 Occurrences starting 02/20/2022 until 02/20/2023 URINALYSIS, DIPSTICK ONLY URINAL YSIS, DIPSTICK ONLY Lab STAT Brain tumor (HCC) 02/27/2022 4:46 PM EDT [facility] Work Phone: End: 02-01-2024 US FOOT RIGHT US FOOT RIGHT Radiology Routine Neuroma 1 Occurrences starting 01/02/2023 until 02/01/2024 [facility] Work Phone: Comment on above: 1 Occurrences starti ng 01/02/2023 until 02/01/[address] [facility] End: 04-30-2023 Us soft tissue head & neck real time imge docm US HEAD/NECK SOFT TISSUE OTHER Radiology Routine Neck mass 1 Occurrences starting 03/31/2022 until 04/30/2023 [facility] Work Phone: Comment on above: 1 Occurrences starti ng 03/31/2022 until 04/30/2023 [facility] Immunizations Immunization Date Immunization Notes Care Provider Sandra adams 06-06-2024 influenza, high dose seasonal, preservative-free Christen Cheuvront [employer] Work Phone: [facility] 06-06-2024 influenza virus vacc ine, unspecified formulation Yancy Centeno MD Work Phone: [facility] 04-25-2023 COVID-19 vaccine, ag e 12+ yr, season (PFIZER-BIONTECH) Miguelangel Spence [employer] Work Phone: [facility] 02-26-2023 influenza, seasonal, injectable Us 6 Work Phone: [facility] 02-26-2023 Seasonal, quadrivale nt, recombinant, injectable influenza vaccine, preservative free Miguelangel Spence [employer] Work Phone: [facility] 02-26-2023 influenza virus vacc ine, unspecified formulation Danielle Khan PA-C Work Phone: [facility] 03-31-2022 influenza, injectabl e, quadrivalent, contains preservative Breanne Whittington MD Work Phone: [facility] 03-31-2022 influenza virus vacc ine, unspecified formulation Augustin Carrillo Work Phone: [facility] 11-21-2021 COVID-19 vaccine, ag e 12+ yr (PFIZER-BIONTECH - BURRELL TOP) Yancy Centeno MD Work Phone: [facility] 03-22-2021 COVID-19 vaccine, ag e 12+ yr (PFIZER-BIONTECH - PURPLE TOP) Breanne Whittington MD Work Phone: [facility] 02-10-2021 influenza, injectabl e, quadrivalent, contains preservative Breanne Whittington MD Work Phone: [facility] 02-13-2020 influenza, injectabl e, quadrivalent, contains preservative Breanne Whittington MD Work Phone: [facility] 10-13-2019 zoster vaccine recombinant Breanne Whittington MD Work Phone: [facility] 08-13-2019 zoster vaccine recombinant Breanne Whittington MD Work Phone: [facility] 06-14-2019 zoster vaccine recombinant Breanne Whittington MD Work Phone: [facility] 03-14-2019 influenza, injectabl e, quadrivalent, contains preservative Breanne Whittington MD Work Phone: [facility] 03-15-2018 influenza, injectabl e, quadrivalent, contains preservative Breanne Whittington MD Work Phone: [facility] 12-05-2017 poliovirus vaccine, inactivated Breanne Whittington MD Work Phone: [facility] 11-08-2017 typhoid capsular polysaccharide vaccine Breanne Whittington MD Work Phone: [facility] 04-02-2017 influenza, injectabl e, quadrivalent, contains preservative Breanne Whittington MD Work Phone: [facility] 04-21-2016 influenza, injectabl e, quadrivalent, contains preservative Breanne Whittington MD Work Phone: [facility] 04-07-2014 hepatitis A vaccine, adult dosage Breanne Whittington MD Work Phone: [facility] 03-17-2014 influenza, seasonal, injectable Breanne Whittington MD Work Phone: [facility] 09-15-2013 hepatitis A vaccine, adult dosage Breanne Whittington MD Work Phone: [facility] 09-15-2013 tetanus toxoid, redu jose diphtheria toxoid, and acellular pertussis vaccine, adsorbed Breanne Whittington MD Work Phone: [facility] 03-07-2013 influenza, seasonal, injectable Breanne Whittington MD Work Phone: [facility] Payers Date Payer Category Payer Self-pay [id number] 2023 Medicare [id number] 2023 Medicare [id number] 2022 [employer] DICARE SUPPLEMENT [id number] 2022 Medicare [id number] 2020 Unknown ANTHEM BLUE CARD PPO OOS [id number] 2020-Present [phone] [id number] [place] [id number] PPO [id number] 2020 Unknown [id number] 2016 Unknown [id number] 1958 Unknown [id number] 1958 Unknown [id number] 1958 Unknown [id number] Unknown [id number] Unknown [id number] Unknown [id number] Unknown [id number] Social History Date Type Detail Facility Start: 07-21-2021 End: 01-12-2023 Tobacco smoking status NHIS Unknown if ever smoked [facility] Start: 07-27-2020 None [facility] Start: 07-27-2020 Spouse/ Signif icant Other [facility] Start: 09-27-2020 Non-smoker [facility] Start: 1960 Sex Assigned At Male [facility] Start: 07-19-2020 End: 03-31-2022 Tobacco smoking status NHIS Never smoked tobacco [facility] Start: 06-01-2021 End: 12-31-2024 Alcohol intake Current non-drinker of alcohol (finding) [facility] Start: 12-15-2020 End: 05-30-2022 History SDOH Alcohol Frequency [address] [facility] Start: 12-15-2020 End: 05-30-2022 History SDOH Social Connections Phone [address] [facility] Start: 12-15-2020 End: 05-30-2022 History SDOH Social Connections Mandaeism [address] [facility] Start: 12-15-2020 End: 05-30-2022 History SDOH Physical Activity DPW [address] [facility] Start: 12-15-2020 End: 05-30-2022 History SDOH Stress [address] [facility] Start: 12-15-2020 Education [address] [facility] Start: 07-17-2021 End: 04-10-2022 Exposure to SARS-CoV-2 (event) Not sure [facility] Start: 08-08-2021 End: 02-02-2022 Exposure to SARS-CoV-2 (event) Unable to assess [facility] Start: 07-19-2020 End: 03-31-2022 Tobacco use and exposure Smokeless tobacco non-user [facility] Start: 01-20-2022 End: 01-30-2022 Exposure to SARS-CoV-2 (event) Yes [facility] Start: 05-30-2022 History SDOH Alcohol Std Drinks [address] [facility] Start: 05-30-2022 History SDOH Physica l Activity MPS [address] [facility] Start: 05-30-2022 End: 11-20-2022 History of Social function [facility] Start: 05-30-2022 End: 11-20-2022 Social connection and isolation panel [facility] Are you now , , , , never or living with a partner? [facility] How often to you hav e a drink containing alcohol? Never [facility] Start: 04-14-2012 How many standard drinks containing alcohol do you have on a typical day? Patient does not drink [facility] Do you feel stress - tense, restless, nervous, or anxious, or unable to sleep at night because your mind is troubled all the time - these days [OSQ] Not at all [facility] (I/We) worried moses er (my/our) food would run out before (I/we) got money to buy more. Never true [facility] In the past 12 month s, was there a time when you were not able to pay the mortgage or rent on time? No [facility] Start: 07-01-2020 Gender identity Identifies as male gender (finding) [facility] Start: 07-18-2020 Sexual orientation Heterosexual (fin manju) [facility] Start: 02-01-2023 End: 03-28-2023 Alcohol intake Lifetime non-drinker (finding) [facility] Start: 1960 Sex Assigned At Not on file O [facility] Do you feel stress - tense, restless, nervous, or anxious, or unable to sleep at night because your mind is troubled all the time - these days [OSQ] Only a little [facility] Medical Equipment Procedure Code Equipment Code Equipment Origin al Text Equipment Identifier Dates Colonoscopy Ligation clip, metallic [id number] FDA Start: 01-16-2023 Stent-01/21/2013 [id number] Start: 01-21-2013 Goals Date Patient Goal Desired Activity /State Functional Status Date Assessment Result Facility 10-15-2024 Total score [AUDIT-C] 0 10/16/19 8:39 PM EDT User, Reva [facility] 10-15-2024 How often to you hav e a drink containing alcohol? Never 10/15/2024 8:39 PM EDT User, Reva Never [facility] 10-15-2024 Functional status Patient does n ot drink 10/15/2024 8:39 PM EDT User, Reva Patient does not drink [facility] 10-15-2024 How often do you hav e 6 or more drinks on 1 occasion? Never 10/15/2024 8:39 PM EDT User, Reva Never [facility] 01-12-2021 Are you deaf, or do you have serious difficulty hearing No 01/12/2021 11:54 AM Laurie Knott RN No [facility] 01-12-2021 Are you blind, or do you have serious difficulty seeing, even when wearing glasses No 01/12/2021 11:54 AM Laurie Knott RN No [facility] 01-12-2021 Do you have serious difficulty walking or climbing stairs No 01/12/2021 11:54 AM Laurie Knott RN No [facility] 01-12-2021 Do you have difficul ty dressing or bathing No 01/12/2021 11:54 AM Laurie Knott RN No [facility] 01-12-2021 Because of a physica l, mental, or emotional condition, do you have difficulty doing errands alone such as visiting a physician's office or shopping No 01/12/2021 11:54 AM Laurie Knott RN No [facility] Mental Status Date Assessment Result Facility 01-16-2023 Cognitive function Voice/Name [facility] Work Phone: 01-12-2021 Because of a physica l, mental, or emotional condition, do you have serious difficulty concentrating, remembering, or making decisions No 01/12/2021 11:54 AM Laurie Knott RN No [facility] Clinical Notes 01-15-2013 to 01-20-2025 Telephone Encounter - Fouzia Amado APRN.CNP - 01/20/2025 11:21 AM EDTTelephone Encounter - Fouzia Amado APRN.CNP - 01/20/2025 11:21 AM EDTPatient InstructionsPatient Instructions Note Date & Type Note [facility] 01-20-2025 Telephone encounter Note Consult placed for PT [facility] 01-20-2025 Miscellaneous Notes Consult placed for PT documented in this encounter [facility] 01-05-2025 Telephone encounter Note Latest Ref Rng 01/02/2025 Normalized Calcium 1.08 - 1.30 mmol/L 1.19 Ionized Calcium 1.08 - 1.30 mmol/L 1.23 PTH, Intact 15 - 65 pg/mL [address] [facility] Work Phone: 01-05-2025 Miscellaneous Notes Latest Ref Rng 01/02/2025 Normalized Calcium 1.08 - 1.30 mmol/L 1.19 Ionized Calcium 1.08 - 1.30 mmol/L 1.23 PTH, Intact 15 - 65 pg/mL 50 documented in this encounter [facility] 12-31-2024 Instructions Lakisha Junior MD - 12/31/2024 3:09 PM EDT - Have blood drawn for a parathyroid hormone level and serum calcium at your convenience (no fasting required); you can use the clinic lab on the first floor or the [place] lab. - Begin a magnesium supplement (up to 400 mg twice daily) to help reduce muscle twitching; watch for loose stools as a side effect. - Continue your current seizure medication (levetiracetam) without any changes. - Maintain regular calf-stretching exercises, stay well hydrated, and aim for consistent, restful sleep to help manage muscle twitches. documented in this encounter [facility] 12-31-2024 History of Presen t illness Narrative Last Office Visit: 09/26/2023 (virtual) Current Neuromuscular Diagnosis: none (meningioma s/p gamma knife; last visit reported forefoot burning pain which was deep and not associated with sensory loss) Plan at last office visit: Reasonable to try alpha lipoic acid 400 mg twice daily for symptom management. No further testing. Recording using [employer] software for draft documentation of the visit was discussed with the patient/authorized help desk representative; all questions welcomed and answered. Patient/authorized help desk representative agreed to proceed S: Watson Rodriguez is a 64-year-old male with a history of meningioma, presenting for evaluation of fasciculations. He is accompanied by his , who provides additional history. Watson reports fasciculations in both calves, more pronounced in the right leg, which have increased in frequency over the past few months. Initially observed during an EEG at [facility], the fasciculations were infrequent but have since become more frequent, occurring 20-30 times per minute, especially in the mornings. He notes that the fasciculations are more visible when his muscles are relaxed and do not vary based on stress or other factors. He does not endorse fasciculations in other parts of his body, including the face, tongue, arms, torso, or thighs. He does not physically feel the fasciculations unless he is watching them. He has a history of a meningioma s/p gamma knife and is currently taking Keppra. He has also been taking a multivitamin and turmeric but discontinued them for 30 days without noticing any change in the fasciculations. He does not endorse muscle cramps in the calves but does experience cramps in the arch of his right foot, which he associates with focal seizures. These cramps occur once a week and are relieved by massage. He also reports weakness in his right leg, which he attributes to his brain tumor and spina bifida occulta at L5. He experiences burning and tingling sensations in his right foot, which are triggered by dehydration, hot weather, fatigue, and emotional distress. He manages the pain with dexamethasone, ibuprofen, and clonazepam, which provide relief but do not affect the fasciculations. 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 During these episodes, he loses control of his leg and cannot bear weight on it. The episodes last for a few hours and are preceded by an aura. He also reports sound sensitivity, which he attributes to peritumoral edema. He manages the sound sensitivity with dexamethasone. He is physically active, walking 10,000 to 15,000 steps per day, and does not have difficulty going up stairs or getting out of chairs. He does not endorse sensory loss in his legs. He has a family history of ALS, with his father passing away from the disease. O: BP 110/68 (BP Site: Left Arm, BP Position: Sitting, BP Cuff Size: Regular Adult) Pulse 63 Ht 180.3 cm (5' 11) Wt 83.9 kg (185 lb) SpO2 96% BMI 25.80 kg/m MS: alert and responsive, language intact 5/5 throughout all extremity muscle groups, nl tone, mildly reduced R calf and medial posterior thigh bulk, able to arise from a chair without using hands Strength: Right Left Hip Flexors 5 5 Hip Extensors 5 5 Hip Abductors 5 5 Hip Adductors 5 5 Knee Extensors 5 5 Knee Flexors 4+ 5 Ankle Dorsiflexors 5 5 Ankle Plantarflexors 5- 5 Ankle Invertors 5 5 Ankle Evertors 5- 5 Toe Flexors 4+ 5- Toe Extensors 5 5 Sensory: intact LT in all 4 extremities Reflexes: 3+ bilateral biceps, triceps, brachioradialis, knees, and ankles; plantar responses upgoing bilaterally; bilateral crossed adductors; no Velarde's or Troemner's bilaterally, clonus R>L ankles Cerebellar: FTN, HTS, and JAI intact bilaterally Gait: intact including stress gait, Romberg negative A/P: Watsongricel Rodriguez is a 64 year-old man who had sudden onset RLE function changes 05/02/2020. CT/MRI brain showed left parasaggital meningioma, now s/p gamma knife. He has ongoing focal seizure management with Keppra and prn clonazepam. He reports ongoing forefoot burning pain which is deep and not associated with sensory loss. Patient is now reporting fasciculations in the R>L calf muscles. These are observed on examination and on videos provided by the patient. Discussed with patient that I doubt a peripheral nerve (radiculopathy or peripheral nerve injury) based on absence of sensory loss and unchanged examination. His known spina bifida occulta could cause radiculopathy which in turn could cause fasciculations, but prior EMG of the RLE (12/2021) was normal. He has a family history of ALS in his father, but ALS unlikely due to UMN signs in RLE and unchanged neurological exam. Possible that the movements are an atypical mini-myoclonus int he setting of levitiracetam use, but I would not advocate changes in his AED regimen. - Order serum calcium and parathyroid hormone levels to rule out metabolic causes. - Trial magnesium supplementation up to 400 mg BID; discussed potential for loose stools. - Advised continuation of regular stretching, hydration, and sleep hygiene. - No changes to levetiracetam recommended. - Discussed that further EMG is unlikely to be helpful. Lakisha Junior MD documented in this encounter [facility] 12-31-2024 Note HNO ID: [id number] Author: LAKISHA JUNIOR MD Service: ? Author Type: Physician Type: Progress Notes Filed: 01/01/2025 10:06 Note Text: Last Office Visit: 09/26/2023 (virtual) Current Neuromuscular Diagnosis: none (meningioma s/p gamma knife; last visit reported forefoot burning pain which was deep and not associated with sensory loss) Plan at last office visit: Reasonable to try alpha lipoic acid 400 mg twice daily for symptom management. No further testing. Recording using [employer] software for draft documentation of the visit was discussed with the patient/authorized help desk representative; all questions welcomed and answered. Patient/authorized help desk representative agreed to proceed S: Watson Rodriguez is a 64-year-old male with a history of meningioma, presenting for evaluation of fasciculations. He is accompanied by his , who provides additional history. Watson reports fasciculations in both calves, more pronounced in the right leg, which have increased in frequency over the past few months. Initially observed during an EEG at [facility], the fasciculations were infrequent but have since become more frequent, occurring 20-30 times per minute, especially in the mornings. He notes that the fasciculations are more visible when his muscles are relaxed and do not vary based on stress or other factors. He does not endorse fasciculations in other parts of his body, including the face, tongue, arms, torso, or thighs. He does not physically feel the fasciculations unless he is watching them. He has a history of a meningioma s/p gamma knife and is currently taking Keppra. He has also been taking a multivitamin and turmeric but discontinued them for 30 days without noticing any change in the fasciculations. He does not endorse muscle cramps in the calves but does experience cramps in the arch of his right foot, which he associates with focal seizures. These cramps occur once a week and are relieved by massage. He also reports weakness in his right leg, which he attributes to his brain tumor and spina bifida occulta at L5. He experiences burning and tingling sensations in his right foot, which are triggered by dehydration, hot weather, fatigue, and emotional distress. He manages the pain with dexamethasone, ibuprofen, and clonazepam, which provide relief but do not affect the fasciculations. 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 During these episodes, he loses control of his leg and cannot bear weight on it. The episodes last for a few hours and are preceded by an aura. He also reports sound sensitivity, which he attributes to peritumoral edema. He manages the sound sensitivity with dexamethasone. He is physically active, walking 10,000 to 15,000 steps per day, and does not have difficulty going up stairs or getting out of chairs. He does not endorse sensory loss in his legs. He has a family history of ALS, with his father passing away from the disease. O: BP 110/68 (BP Site: Left Arm, BP Position: Sitting, BP Cuff Size: Regular Adult) Pulse 63 Ht 180.3 cm (5' 11) Wt 83.9 kg (185 lb) SpO2 96% BMI 25.80 kg/m? MS: alert and responsive, language intact 5/5 throughout all extremity muscle groups, nl tone, mildly reduced R calf and medial posterior thigh bulk, able to arise from a chair without using hands Strength: Right Left Hip Flexors 5 5 Hip Extensors 5 5 Hip Abductors 5 5 Hip Adductors 5 5 Knee Extensors 5 5 Knee Flexors 4+ 5 Ankle Dorsiflexors 5 5 Ankle Plantarflexors 5- 5 Ankle Invertors 5 5 Ankle Evertors 5- 5 Toe Flexors 4+ 5- Toe Extensors 5 5 Sensory: intact LT in all 4 extremities Reflexes: 3+ bilateral biceps, triceps, brachioradialis, knees, and ankles; plantar responses upgoing bilaterally; bilateral crossed adductors; no Velarde's or Troemner's bilaterally, clonus R>L ankles Cerebellar: FTN, HTS, and JAI intact bilaterally Gait: intact including stress gait, Romberg negative A/P: Watson Rodriguez is a 64 year-old man who had sudden onset RLE function changes 05/02/2020. CT/MRI brain showed left parasaggital meningioma, now s/p gamma knife. He has ongoing focal seizure management with Keppra and prn clonazepam. He reports ongoing forefoot burning pain which is deep and not associated with sensory loss. Patient is now reporting fasciculations in the R>L calf muscles. These are observed on examination and on videos provided by the patient. Discussed with patient that I doubt a peripheral nerve (radiculopathy or peripheral nerve injury) based on absence of sensory loss and unchanged examination. His known spina bifida occulta could cause radiculopathy which in turn could cause fasciculations, but prior EMG of the RLE (12/2021) was normal. He has a family history of ALS in his father, but ALS unlikely due to UMN signs in RLE and unchanged neurolog (more content not included)... [facility] 12-17-2024 Note HNO ID: [id number] Author: ?, ?, ? Service: ? Author Type: ? Type: Progress Notes Filed: 12/17/2024 15:48 Note Text: CMN RECEIVED BY [employer] VIA FAX, COMPLETED, AND PLACED IN PROVIDER MAILBOX FOR SIGNATURE [employer] SENDING CMN: Kinsey SIGNED AND DATED CMN, FAXED TO DME AND CONFIRMATION PAGE RECEIVED: 12.17.[address] [facility] 12-01-2024 Note HNO ID: [id number] Author: DAVION SAMAYOA MD Service: ? Author Type: Physician Type: Progress Notes Filed: 12/01/2024 13:32 Note Text: Davion Samayoa MD Interventional Cardiology [address] [address] [phone] Chief Complaint Patient presents with: New Patient: Transferring from [facility], patient has questions HISTORY OF PRESENT ILLNESS: Mr. Rodriguez is a 64-year-old male with a history of anterior AK and stent placement in the LAD in 2012, presenting for follow-up. The patient reports no current chest pain or dyspnea. He maintains a healthy diet and regular exercise regimen. A recent echocardiogram on May 19, 2024, showed normal heart function with an LVEF of 60% and mild aortic stenosis. He inquires about the implications of aortic stenosis and future management. He has a history of meningioma diagnosed in 2020, managed with Gamma Knife radiation due to its location in the motor control area. He experiences chronic right foot pain and is under the care of Dr. Sutton and Dr. Devlin at [facility]. He denies any history of smoking or alcohol use. He has a family history of CAD; his brother had an AK at age 49 and was recently diagnosed with AFib. He is currently taking aspirin, rosuvastatin, and Keppra. Cardiac Risk Factors age (male over 45, female over 55), hyperlipidemia, family history of CAD PAST MEDICAL HISTORY Diagnosis Date Acute myocardial infarction of lateral wall (HCC) 2012 s/p LAD stent Aortic valve stenosis Atrophy of left kidney Benign neoplasm of colon Benign neoplasm of meninges (HCC) 08/02/2020 Bursitis CAD (coronary artery disease) Chronic kidney disease External hemorrhoids Hammertoe of right foot Hyperlipidemia Hypokalemia Irregular heart rhythm Lipoma Meningioma (HCC) Mitral valve prolapse Neuroma MELL on CPAP Seizure (HCC) focal motor PAST SURGICAL HISTORY Procedure Laterality Date COLONOSCOPY FLX DX W/COLLJ SPEC WHEN PFRMD 10/29/2009 Colonoscopy COLONOSCOPY FLX DX W/COLLJ SPEC WHEN PFRMD 2016 HEMORRHOID;BAND LIGAT, SNGL/MUL 12/2016 MRI 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 PAST SURGICAL HISTORY OF Left 04/2017 left knee arthroscopy - meniscus PAST SURGICAL HISTORY OF 01/2013 PTCA x 1 - LAD PT ED HEART AND VASCULAR 2012 coronary angioplasty graft and stent FAMILY HISTORY Problem Relation Age of Onset Colon Cancer Mother ascending large intestine removed 2008 at 80 years old Heart Attack Mother Prostate Cancer Brother Heart Attack Brother Colon Cancer Maternal Grandmother portion lower colon removed 60 years old, colostomy Heart Attack Paternal Grandfather 70's Social History Tobacco Use Smoking status: Never Smokeless tobacco: Never Vaping Use Vaping status: Never Used Substance Use Topics Alcohol use: No Drug use: No ALLERGIES Allergen Reactions Atorvastatin Myalgia, Other: See Comments Medications: Current Outpatient Medications Medication Sig Dispense Refill levETIRAcetam (KEPPRA) 250 mg tablet Take 1 tablet by mouth two times a day. Please add this dose to your current dose of levetiracetam. The total daily dose, will be 1250 mg twice a day. 60 tablet 4 CPAP/BIPAP/OTHER APAP 5-20 cmH2O DME [employer] 1 each 0 dexAMETHasone (DECADRON) 2 mg tablet 2 mg the day prior to the flight, the day of the flight and the day after the flight. 15 tablet 2 clonazePAM orally disintegrating (KLONOPIN WAFER) 1 mg disintegrating tablet Dissolve 1 tablet under the tongue three times a day as needed for up to 30 days. 30 tablet 2 levETIRAcetam (KEPPRA) 500 mg tablet Take 2 tablets by mouth two times a day. 360 tablet 11 sildenafil (VIAGRA) 100 mg tablet Take 1 pill 1 hour prior to sexual activity on empty stomach 30 tablet 5 CPAP Initiate Auto PAP @ 5-20 cm of water with humidification. Mask (per patient preference) optional chin strap (if indicated) , filters, tubing, humidifier and lifetime supplies. 1 Device 0 rosuvastatin (CRESTOR) 40 mg tablet Take 40 mg by mouth. Multivitamin capsule Take 1 capsule by mouth once daily. aspirin(ADULT LOW DOSE ASPIRIN 81 MG TAB, DELAYED RELEASE) Take one(1) tablet daily. 0 No current facility-administered medications for this visit. Review of Systems Constitutional: Negative for chills, diaphoresis, fever, malaise/fatigue and weight loss. HENT: Negative for congestion, ear discharge, ear pain, hearing loss, nosebleeds, sinus pain, sore throat and tinnitus. Eyes: Negative for blurred vision, double vision, photophobia, pain, discharge and redness. Respiratory: Negative for cough, hemoptysis, sputum production, shortness of breath, wheezing and stridor. Cardiovascular: Negative for chest pain, palpitations, orthopnea, claudication, leg swelling and PND. Gastrointestinal: Negative for abdominal pain, blood in stool, constipation, diarrhea, heartburn, melena, (more content not included)... [facility] 12-01-2024 History of Presen t illness Narrative Images from the original note were not included. Davion Samayoa MD Interventional Cardiology [address] [place] [address] [phone] Chief Complaint Patient presents with: New Patient: Transferring from [facility], patient has questions HISTORY OF PRESENT ILLNESS: Mr. Rodriguez is a 64-year-old male with a history of anterior AK and stent placement in the LAD in 2012, presenting for follow-up. The patient reports no current chest pain or dyspnea. He maintains a healthy diet and regular exercise regimen. A recent echocardiogram on May 19, 2024, showed normal heart function with an LVEF of 60% and mild aortic stenosis. He inquires about the implications of aortic stenosis and future management. He has a history of meningioma diagnosed in 2020, managed with Gamma Knife radiation due to its location in the motor control area. He experiences chronic right foot pain and is under the care of Dr. Sutton and Dr. Devlin at [facility]. He denies any history of smoking or alcohol use. He has a family history of CAD; his brother had an AK at age 49 and was recently diagnosed with AFib. He is currently taking aspirin, rosuvastatin, and Keppra. Cardiac Risk Factors age (male over 45, female over 55), hyperlipidemia, family history of CAD PAST MEDICAL HISTORY Diagnosis Date Acute myocardial infarction of lateral wall (HCC) 2012 s/p LAD stent Aortic valve stenosis Atrophy of left kidney Benign neoplasm of colon Benign neoplasm of meninges (HCC) 08/02/2020 Bursitis CAD (coronary artery disease) Chronic kidney disease External hemorrhoids Hammertoe of right foot Hyperlipidemia Hypokalemia Irregular heart rhythm Lipoma Meningioma (HCC) Mitral valve prolapse Neuroma MELL on CPAP Seizure (HCC) focal motor PAST SURGICAL HISTORY Procedure Laterality Date COLONOSCOPY FLX DX W/COLLJ SPEC WHEN PFRMD 10/29/2009 Colonoscopy COLONOSCOPY FLX DX W/COLLJ SPEC WHEN PFRMD 2016 HEMORRHOID;BAND LIGAT, SNGL/MUL 12/2016 MRI 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 PAST SURGICAL HISTORY OF Left 04/2017 left knee arthroscopy - meniscus PAST SURGICAL HISTORY OF 01/2013 PTCA x 1 - LAD PT ED HEART AND VASCULAR 2012 coronary angioplasty graft and stent FAMILY HISTORY Problem Relation Age of Onset Colon Cancer Mother ascending large intestine removed 2008 at 80 years old Heart Attack Mother Prostate Cancer Brother Heart Attack Brother Colon Cancer Maternal Grandmother portion lower colon removed 60 years old, colostomy Heart Attack Paternal Grandfather 70's Social History Tobacco Use Smoking status: Never Smokeless tobacco: Never Vaping Use Vaping status: Never Used Substance Use Topics Alcohol use: No Drug use: No ALLERGIES Allergen Reactions Atorvastatin Myalgia, Other: See Comments Medications: Current Outpatient Medications Medication Sig Dispense Refill levETIRAcetam (KEPPRA) 250 mg tablet Take 1 tablet by mouth two times a day. Please add this dose to your current dose of levetiracetam. The total daily dose, will be 1250 mg twice a day. 60 tablet 4 CPAP/BIPAP/OTHER APAP 5-20 cmH2O DME [facility] 1 each 0 dexAMETHasone (DECADRON) 2 mg tablet 2 mg the day prior to the flight, the day of the flight and the day after the flight. 15 tablet 2 clonazePAM orally disintegrating (KLONOPIN WAFER) 1 mg disintegrating tablet Dissolve 1 tablet under the tongue three times a day as needed for up to 30 days. 30 tablet 2 levETIRAcetam (KEPPRA) 500 mg tablet Take 2 tablets by mouth two times a day. 360 tablet 11 sildenafil (VIAGRA) 100 mg tablet Take 1 pill 1 hour prior to sexual activity on empty stomach 30 tablet 5 CPAP Initiate Auto PAP @ 5-20 cm of water with humidification. Mask (per patient preference) optional chin strap (if indicated) , filters, tubing, humidifier and lifetime supplies. 1 Device 0 rosuvastatin (CRESTOR) 40 mg tablet Take 40 mg by mouth. Multivitamin capsule Take 1 capsule by mouth once daily. aspirin(ADULT LOW DOSE ASPIRIN 81 MG TAB, DELAYED RELEASE) Take one(1) tablet daily. 0 No current facility-administered medications for this visit. Review of Systems Constitutional: Negative for chills, diaphoresis, fever, malaise/fatigue and weight loss. HENT: Negative for congestion, ear discharge, ear pain, hearing loss, nosebleeds, sinus pain, sore throat and tinnitus. Eyes: Negative for blurred vision, double vision, photophobia, pain, discharge and redness. Respiratory: Negative for cough, hemoptysis, sputum production, shortness of breath, wheezing and stridor. Cardiovascular: Negative for chest pain, palpitations, orthopnea, claudication, leg swelling and PND. Gastrointestinal: Negative for abdominal pain, blood in stool, constipation, diarrhea, heartburn, melena, nausea and vomiting. Genitourinary: Negative for dysuria, flank pain, frequency, hematuria and urgency. Musculoskeletal: Negative for back pain, falls, joint pain, myalgias and neck pain. Skin: Negative for itching and rash. Neurological: Negative for dizziness, tingling, tremors, sensory change, speech change, focal weakness, seizures, loss of consciousness, weakness and headaches. Endo/Heme/Allergies: Negative for environmental allergies and polydipsia. Does not bruise/bleed easily. Psychiatric/Behavioral: Negative for depression, hallucinations, memory loss, substance abuse and suicidal ideas. The patient is not nervous/anxious and does not have insomnia. Physical Examination: Vitals:BP 116/56 Pulse 65 Resp 12 Ht 5' 11 (1.80m) Wt 188 lb (85.3kg) SpO2 97% BMI 26.23 kg/(m^2). BP w/Orthostatic Vitals Date and Time Orthostatic BP Orthostatic Pulse BP Pulse BP Position BP Site BP Cuff Size 12/01/24 1254 -- -- 116/56 65 Sitting Right Arm Large Adult Peak Flow Date and Time PF Resp 12/01/24 1254 -- 12 Last 2 Encounter Wt Readings: Date: Wt: 12/01/2024 85.3 kg (188 lb) 10/22/2024 82.1 kg (181 lb) Physical Exam Constitutional: General: He is not in acute distress. Appearance: He is not diaphoretic. HENT: Head: Normocephalic and atraumatic. Right Ear: External ear normal. Left Ear: External ear normal. Nose: Nose normal. Mouth/Throat: Pharynx: Oropharynx is clear. Eyes: General: Right eye: No discharge. Left eye: No discharge. Conjunctiva/sclera: Conjunctivae normal. Pupils: Pupils are equal, round, and reactive to light. Cardiovascular: Rate and Rhythm: Normal rate and regular rhythm. Heart sounds: S1 normal and S2 normal. Murmur heard. No friction rub. No gallop. No S3 or S4 sounds. Pulmonary: Effort: Pulmonary effort is normal. No respiratory distress. Breath sounds: Normal breath sounds. No wheezing or rales. Chest: Chest wall: No tenderness. Abdominal: General: Abdomen is flat. Musculoskeletal: General: Normal range of motion. Cervical back: Normal range of motion and neck supple. Skin: General: Skin is warm and dry. Neurological: Mental Status: He is alert and oriented to person, place, and time. Psychiatric: Mood and Affect: Mood normal. Pertinent Labs: CBC: Hemoglobin (g/dL) Date Value 10/22/2024 14.1 07/04/2021 14.7 Hematocrit (%) Date Value 10/22/2024 42.1 07/04/2021 42.4 WBC (k/uL) Date Value 10/22/2024 5.10 07/04/2021 4.45 Platelet Count (k/uL) Date Value 10/22/2024 193 07/04/2021 170 BMP: Glucose (mg/dL) Date Value 10/22/2024 86 06/24/2021 89 Potassium (mmol/L) Date Value 10/22/2024 4.8 06/24/2021 4.1 Sodium (mmol/L) Date Value 10/22/2024 141 06/24/2021 134 Chloride (mmol/L) Date Value 10/22/2024 105 06/24/2021 101 CO2 (mmol/L) Date Value 10/22/2024 25 06/24/2021 27 Creatinine (mg/dL) Date Value 10/22/2024 1.04 06/24/2021 1.10 BUN (mg/dL) Date Value 10/22/2024 25 06/24/2021 12 Anion Gap (mmol/L) Date Value 10/22/2024 11 06/24/2021 6 Calcium (mg/dL) Date Value 06/24/2021 9.2 Calcium, Total (mg/dL) Date Value 10/22/2024 9.5 INR: Lipid Profile: Cholesterol, Total Date Value Ref Range Status 05/30/2024 140 <200 mg/dL Final Comment: <200 mg/dL, Desirable 200-239 mg/dL, Borderline high >239 mg/dL, High HDL Cholesterol Date Value Ref Range Status 05/30/2024 45 >39 mg/dL Final Comment: 40-59 mg/dL, Acceptable >59 mg/dL, High: Negative risk factor for coronary heart disease <40 mg/dL, Low: Positive risk factor for coronary heart disease LDL Cholesterol, Calculated Date Value Ref Range Status 05/30/2024 81 <100 mg/dL Final Comment: <100 mg/dL, Optimal 100-129 mg/dL, Near optimal/above optimal 130-159 mg/dL, Borderline high 160-189 mg/dL, High >189 mg/dL, Very high Secondary prevention optimal LDL Cholesterol levels are recommended to be < 70 mg/dL Triglyceride Date Value Ref Range Status 05/30/2024 70 <150 mg/dL Final Comment: <150 mg/dL, Normal 150-199 mg/dL, Borderline high 200-499 mg/dL, High >499 mg/dL, Very high Hemoglobin A1C: No results found for: HGBA1C TSH: No results found for: TSHREFL Prior Cardiac Testing Echo Assessment and Plan: 64-year-old male with a history of anterior AK and stent placement in the LAD in 2012 and mild to moderate . ASSESSMENT/PLAN: 1. Aortic stenosis, moderate - ICD9: 424.1, ICD10: I35.0 (primary diagnosis) Mild to Moderate No intervention indicated Monitor yearly. - ECHO 2. Coronary artery disease involving benton coronary artery of benton heart without angina pectoris - ICD9: 414.01, ICD10: I25.10 Stable 3. Postsurgical percutaneous transluminal coronary angioplasty (PTCA) status - ICD9: V45.82, ICD10: Z98.61 LAD BON We discussed your heart health and follow-up care: - Your heart function is back to normal with an ejection fraction of 60%, as shown on your most recent echocardiogram from May 19, 2024. Structurally, your heart looks good. - You have mild to moderate aortic stenosis, which means your aortic valve has some thickening and does not open fully. This is not severe at this time, but it will likely progress over time. - To monitor this, you will need a yearly echocardiogram. I have scheduled your next echocardiogram for one year from now. - If you develop symptoms such as chest pain, shortness of breath, or other concerning issues, please contact me immediately, and we will see you sooner. - You do not need a stress test at this time since you are exercising regularly without symptoms such as chest pain or shortness of breath. - Your blood pressure today was 116/56, and your heart rate was 65, which are both excellent. We discussed your medications: - Continue taking aspirin and rosuvastatin (statin) as prescribed for your heart health. - Continue taking Keppra as prescribed by your neurologist for seizure management related to your meningioma. We discussed your cholesterol levels: - Your most recent cholesterol levels from May are good: - Total cholesterol: 140 - Triglycerides: 70 - LDL (bad cholesterol): 81 - HDL (good cholesterol): 45 - Continue your current lifestyle and medication regimen to maintain these levels. We discussed emergency care: - If you experience chest pain, shortness of breath, or other urgent symptoms, go to the nearest emergency room (e.g., [place]) for immediate evaluation. Time is critical in emergencies. - If needed, you can be transferred to [place] for further care, but initial evaluation should occur at the closest ER. Follow-up plan: - I will see you in one year for a follow-up visit and echocardiogram unless you develop symptoms that require earlier evaluation. - If you need an urgent appointment, you can contact me through [email or web address] or call the office. I am in [place] on Mondays and available in [place] for urgent needs. Please continue your healthy lifestyle, including regular exercise and a heart-healthy diet. Let me know if you have any questions or concerns before your next visit. Davion Samayoa MD Follow up planning: One year Electronically signed by Davion Samayoa MD on December 01, 2024, 1:26 PM The above note was partially created using a dictation recognition software. A reasonable attempt has been made to correct any errors. documented in this encounter [facility] 11-27-2024 Instructions Yancy Centeno MD - 11/27/2024 12:15 AM EDT - Continue levetiracetam (Keppra) at 2,250 mg daily as your maintenance dose to reduce seizure activity. - Use clonazepam as needed if you feel seizure symptoms beginning. - Continue your turmeric supplement and begin a Boswellia supplement once you can obtain a high-quality product. - Prepare for an in-person neuromuscular evaluation with Dr. Lorenz: share the videos of your calf muscle twitching and confirm with Dr. Devlin if any tests (for example, blood work or an EMG) should be ordered before that visit. - Keep your follow-up appointment with Dr. Lundberg in January to review Boswellia use and discuss ongoing right-foot pain. documented in this encounter [facility] 11-24-2024 Note HNO ID: [id number] Author: YANCY CENTENO MD Service: ? Author Type: Physician Type: Progress Notes Filed: 11/27/2024 00:14 Note Text: Neurological Start [facility] NEURO-ONCOLOGY VIRTUAL VISIT NOTE This is a virtual visit using HIPAA compliant video platform. It required patient-provider interaction for the medical decision making as documented below. I have communicated my name and active licensure. The patient's identity and physical location were verified at the time of this visit. Either the patient or their legal help desk representative has been informed of the risks and benefits of -- and alternatives to -- treatment through a remote evaluation and consents to proceed with the evaluation remotely. Diagnosis: Left parasagittal meningioma, s/p (08/16/2020-08/20/2020) GKSRS (25Gy/5fx) HPI Watson Rosemary Rodriguez is a 64-year-old male with a history of brain tumor and seizures, presenting for evaluation of bilateral leg twitching and right leg weakness. He is accompanied by his , who provides additional history. Watson reports bilateral leg twitching, primarily in the calf muscles, which began in the right leg in fall 2020 after gamma knife surgery. Twitching in the left leg started 3-4 months ago. He does not feel the twitches unless he looks at his legs and has not observed similar twitching in other parts of his body. He has been more physically active over the past 2-3 months due to a major house project and notes that physical exertion, especially in hot weather, seems to trigger these episodes. He also mentions that lack of sleep, gastrointestinal upsets, and dietary changes, such as increased salt intake, contribute to the frequency of these events. He continues to use his CPAP machine for sleep apnea. He describes episodes of right leg weakness, stating that his leg feels like weight and he cannot bear weight on it. These episodes last about 30 minutes and are sometimes accompanied by weakness that migrates up his leg to his right side, arm, and neck. He associates these episodes with his initial Jacksonian seizure. He takes clonazepam during these episodes, which helps alleviate the symptoms but makes him very tired. He has identified triggers for these episodes, including physical exertion in hot weather, gastrointestinal upsets, lack of sleep, and dietary changes. He notes that these episodes are more frequent after tapering off dexamethasone, which he took for 10 days during a family vacation in October. He has not experienced any falls or issues related todriving. He also reports a constant, throbbing pain in his right foot upon waking and bearing weight, which he describes as manageable. This pain has been present for four years since he stopped taking dexamethasone after his tumor diagnosis. He continues to take turmeric and plans to start Boswellia as recommended by Dr. Lundberg. He has not experienced any bowel or bladder issues and does not report any lack of sensation from his waist down or upper thoracic area, except during the right leg weakness episodes. He is currently taking Keppra 2250 mg daily, which has reduced his need for clonazepam. He previously reduced his Keppra dose to 1500 mg daily but noticed an increase in seizure frequency and clonazepam use, so he increased the dose back to 2000 mg daily. He then increased the dose to 2500 mg daily but experienced heaviness in both legs, making it difficult to walk, so he reduced the dose to 2250 mg daily. He is unsure if there is a relationship between the Keppra dose and the leg twitching. He has a family history of ALS; his father from the disease in his late 80s. He mentions that the leg spasms remind him of his father's arm spasms in the later stages of ALS. He expresses concern about the leg twitching and wonders if it is related to his seizures or if he should consult a neuromuscular specialist. He notes that the period when he felt the best was last fall and in May and June of this year, when he was consistently seeing a chiropractor for foot manipulation and doing core strengthening exercises. He acknowledges that he has not been diligent with his exercises over the past 2-3 months and plans to resume them to maintain his core strength. He expresses gratitude for his family, including his , who is a two-time cancer survivor, and his nine grandchildren. He mentions that his youngest daughter, her , and their two children have recently moved in with him and his temporarily, which has added some stress but also henok to his life. ASM: Levetiracetam (Keppra) 2250 mg BID Physical Exam This is a virtual exam based on observational as below: No vital signs. NEURO: on observation, CN II-XII intact, no pronator drift, no tremor noted, self reported and/or on observation moves extremities equally, no self-reported sensory deficits and ambula (more content not included)... [facility] 11-24-2024 History of Presen t illness Narrative Images from the original note were not included. Neurological Start [facility] NEURO-ONCOLOGY VIRTUAL VISIT NOTE This is a virtual visit using HIPAA compliant video platform. It required patient-provider interaction for the medical decision making as documented below. I have communicated my name and active licensure. The patient's identity and physical location were verified at the time of this visit. Either the patient or their legal help desk representative has been informed of the risks and benefits of -- and alternatives to -- treatment through a remote evaluation and consents to proceed with the evaluation remotely. 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 He is accompanied by his , who provides additional history. Watson reports bilateral leg twitching, primarily in the calf muscles, which began in the right leg in fall 2020 after gamma knife surgery. Twitching in the left leg started 3-4 months ago. He does not feel the twitches unless he looks at his legs and has not observed similar twitching in other parts of his body. He has been more physically active over the past 2-3 months due to a major house project and notes that physical exertion, especially in hot weather, seems to trigger these episodes. He also mentions that lack of sleep, gastrointestinal upsets, and dietary changes, such as increased salt intake, contribute to the frequency of these events. He continues to use his CPAP machine for sleep apnea. He describes episodes of right leg weakness, stating that his leg feels like weight and he cannot bear weight on it. These episodes last about 30 minutes and are sometimes accompanied by weakness that migrates up his leg to his right side, arm, and neck. He associates these episodes with his initial Jacksonian seizure. He takes clonazepam during these episodes, which helps alleviate the symptoms but makes him very tired. He has identified triggers for these episodes, including physical exertion in hot weather, gastrointestinal upsets, lack of sleep, and dietary changes. He notes that these episodes are more frequent after tapering off dexamethasone, which he took for 10 days during a family vacation in October. He has not experienced any falls or issues related to driving. He also reports a constant, throbbing pain in his right foot upon waking and bearing weight, which he describes as manageable. This pain has been present for four years since he stopped taking dexamethasone after his tumor diagnosis. He continues to take turmeric and plans to start Boswellia as recommended by Dr. Lundberg. He has not experienced any bowel or bladder issues and does not report any lack of sensation from his waist down or upper thoracic area, except during the right leg weakness episodes. He is currently taking Keppra 2250 mg daily, which has reduced his need for clonazepam. He previously reduced his Keppra dose to 1500 mg daily but noticed an increase in seizure frequency and clonazepam use, so he increased the dose back to 2000 mg daily. He then increased the dose to 2500 mg daily but experienced heaviness in both legs, making it difficult to walk, so he reduced the dose to 2250 mg daily. He is unsure if there is a relationship between the Keppra dose and the leg twitching. He has a family history of ALS; his father from the disease in his late 80s. He mentions that the leg spasms remind him of his father's arm spasms in the later stages of ALS. He expresses concern about the leg twitching and wonders if it is related to his seizures or if he should consult a neuromuscular specialist. He notes that the period when he felt the best was last fall and in May and June of this year, when he was consistently seeing a chiropractor for foot manipulation and doing core strengthening exercises. He acknowledges that he has not been diligent with his exercises over the past 2-3 months and plans to resume them to maintain his core strength. He expresses gratitude for his family, including his , who is a two-time cancer survivor, and his nine grandchildren. He mentions that his youngest daughter, her , and their two children have recently moved in with him and his temporarily, which has added some stress but also henok to his life. ASM: Levetiracetam (Keppra) 2250 mg BID Physical Exam This is a virtual exam based on observational as below: No vital signs. NEURO: on observation, CN II-XII intact, no pronator drift, no tremor noted, self reported and/or on observation moves extremities equally, no self-reported sensory deficits and ambulating without difficulty. Assessment/Plan 1. Focal seizures (HCC) (R56.9) - Seizure activity noted, with episodes of right leg weakness progressing to the right arm and neck, resembling Jacksonian seizures. - Currently on Keppra 2250 mg daily, which has reduced the need for clonazepam. - Discussed potential for Phuong's paralysis as a differential diagnosis for episodes of right leg weakness. - Advised to maintain current Keppra dosage and monitor for any changes in seizure frequency or severity. - Follow-up with Dr. Lundberg in January. 2. Pain in right foot (M79.671) - Persistent throbbing pain in the right foot upon weight-bearing, not present when lying down. - Pain management includes continued use of turmeric; has not yet started Boswellia. - Discussed potential neuropathic origin related to history of brain tumor. - Advised to monitor pain levels and report any significant changes. 3. Muscle fasciculation (R25.3) - Bilateral fasciculations observed in the lower extremities, more prominent in the right leg. - Differential diagnoses include benign fasciculations, electrolyte imbalances, or neurogenic causes. - Referral to Dr. Holcomb, a neuromuscular neurologist, for further evaluation and to review video evidence of fasciculations. - Will discuss with Dr. Holcomb the possibility of ordering additional tests, such as EMG or nerve conduction studies, prior to the appointment. 4. History of brain tumor (Z87.898) - Previous brain tumor with ongoing management of associated symptoms, including seizures and neuropathic pain. - Discussed the possibility of tumor location contributing to bilateral fasciculations due to proximity to the midline and potential for cross-hemispheric electrographic activity. - Continue current management and follow-up with oncology as scheduled. 5. Family history of amyotrophic lateral sclerosis (Z82.0) - Noted family history of ALS in patient's father. - Discussed that current symptoms are not typical of ALS, but family history will be considered in the differential diagnosis of fasciculations. - Will ensure Dr. Holcomb is aware of family history during neuromuscular evaluation. PLAN: -From my perspective I recommend a brain MR w and w/o contrast and perfusion, 12 months from the last one done on 09/01/2024, and a follow up visit, 1-2 days after the MRI. At the end, Mr. Rodriguez and his NARCISA Ocampo, verbalized understanding, and agreement with above recommendations and had no further questions or concerns for the moment. I encourage him to call me at my office if he has any questions about the above plan. I spent a total of 70 minutes which included preparing to see the patient, [id number] patient care, additional 15 minutes to completing clinical documentation, obtaining and/or reviewing separately obtained history, performing a medically appropriate examination, counseling and educating the patient/family/caregiver, ordering medications, tests, or procedures, communicating with other HCPs (not separately reported), independently interpreting results (not separately reported), communicating results to the patient/family/caregiver, and care coordination (not separately reported). Yancy Centeno MD Staff Neuro-Oncologist [facility] CC: -Dr. Trev Sutton, Neurosurgery, [facility] -CC-Pipo Aviles MD, Radiation Oncology, [facility], [facility], [facility], [facility] [place] -Joe Santos MD, Nephrology, [facility] Claudio Parks MD, Cardiology, [address], [address], [place] [address], PHONE: -Dr. Catarino Camacho, Epilepsy, [facility] -JORGE Alvarez, PCP, [address] [place] [id number], ; documented in this encounter [facility] 10-22-2024 Note HNO ID: [id number] Author: BREANNE WHITTINGTON MD Service: ? Author Type: Physician Type: Progress Notes Filed: 10/22/2024 17:34 Note Text: Watson Rodriguez is a 64-year-old male with a history of brain tumor, presenting for evaluation of right leg weakness and numbness, and follow-up for aortic stenosis. HPI Right Leg Weakness and Numbness: - Three episodes of right leg weakness and numbness over the past three weeks. - First episode occurred three weeks ago while working in the basement; right leg became weak, unable to bear weight, resolved after one hour of rest and elevation. 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 Neuro onc is aware. - Third episode occurred last Sunday after working most of the day, possibly related to dehydration. - No associated neck pain. - Has been drinking a lot of water. - Recent increase in physical activity due to basement renovation. - Noted correlation between seizures and stress/dehydration post-Gamma Knife. - Currently taking Keppra 2000 mg daily; previously reduced to 1750 mg with temporary relief of foot pain but increased clonazepam use. - Clonazepam use decreased after returning to 2000 mg of Keppra. Brain Tumor: - Recent brain MRI in August showed persistent edema; Dr. Lundberg believes it is peritumoral edema, not radiation necrosis. - Sound sensitivity and tinnitus persist; uses earplugs in large crowds to prevent right foot pain. - Previous treatments for edema included Trentol, vitamin E, and Avastin; Avastin provided temporary relief but has cardiac side effects. - Dr. Devlin hesitant to retry Avastin due to history of AK. - Dr. Aviles recommended trying Boswellia for three months. Aortic Stenosis: - History of heart murmur; recent echo on May 19 showed mild to moderate aortic stenosis. - Scheduled to see Cardiology at [facility] in November. - No current symptoms of tiredness, lightheadedness, or chest discomfort. - Using CPAP regularly with good results. - Blood pressure typically around 110/60 mmHg; occasionally checks at home. MEDICATIONS: Current Outpatient Medications Medication Sig levETIRAcetam (KEPPRA) 500 mg tablet Take 2 tablets by mouth two times a day. sildenafil (VIAGRA) 100 mg tablet Take 1 pill 1 hour prior to sexual activity on empty stomach CPAP Initiate Auto PAP @ 5-20 cm of water with humidification. Mask (per patient preference) optional chin strap (if indicated) , filters, tubing, humidifier and lifetime supplies. rosuvastatin (CRESTOR) 40 mg tablet Take 40 mg by mouth. Multivitamin capsule Take 1 capsule by mouth once daily. aspirin(ADULT LOW DOSE ASPIRIN 81 MG TAB, DELAYED RELEASE) Take one(1) tablet daily. CPAP/BIPAP/OTHER APAP 5-20 cmH2O DME [facility] dexAMETHasone (DECADRON) 2 mg tablet 2 mg the day prior to the flight, the day of the flight and the day after the flight. clonazePAM orally disintegrating (KLONOPIN WAFER) 1 mg disintegrating tablet Dissolve 1 tablet under the tongue three times a day as needed for up to 30 days. No current facility-administered medications for this visit. ALLERGIES: ALLERGIES Allergen Reactions Atorvastatin Myalgia, Other: See Comments PAST MEDICAL HISTORY Diagnosis Date Acute myocardial infarction of lateral wall (HCC) 2012 s/p LAD stent Aortic valve stenosis Atrophy of left kidney Benign neoplasm of colon Benign neoplasm of meninges (HCC) 08/02/2020 Bursitis CAD (coronary artery disease) Chronic kidney disease External hemorrhoids Hammertoe of right foot Hyperlipidemia Hypokalemia Irregular heart rhythm Lipoma Meningioma (HCC) Mitral valve prolapse Neuroma MELL on CPAP Seizure (HCC) focal motor PAST SURGICAL HISTORY Procedure Laterality Date COLONOSCOPY FLX DX W/COLLJ SPEC WHEN PFRMD 10/29/2009 Colonoscopy COLONOSCOPY FLX DX W/COLLJ SPEC WHEN PFRMD 2016 HEMORRHOID;BAND LIGAT, SNGL/MUL 12/2016 MRI 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 PAST SURGICAL HISTORY OF Left 04/2017 left knee arthroscopy - meniscus PAST SURGICAL HISTORY OF 01/2013 PTCA x 1 - LAD PT ED HEART AND VASCULAR 2013 coronary angioplasty graft and stent FAMILY HISTORY Problem Relation Age of Onset Colon Cancer Mother ascending large intestine removed 2008 at 80 years old Prostate Cancer Brother Colon Cancer Maternal Grandmother portion lower colon removed 60 years old, colostomy Social History Tobacco Use Smoking status: Never Smokeless tobacco: Never Vaping Use Vaping status: Never Used Substance Use Topics Alcohol use: No Drug use: No Reviewed current medications, allergies, past medical history, surgical history, family history and social history today. REVIEW OF SYSTEMS Ears/Nose/Mouth/Throat: (+) s (more content not included)... [facility] 10-22-2024 History of Presen t illness Narrative Watson Rodriguez is a 64-year-old male with a history of brain tumor, presenting for evaluation of right leg weakness and numbness, and follow-up for aortic stenosis. HPI Right Leg Weakness and Numbness: - Three episodes of right leg weakness and numbness over the past three weeks. - First episode occurred three weeks ago while working in the basement; right leg became weak, unable to bear weight, resolved after one hour of rest and elevation. 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 Neuro onc is aware. - Third episode occurred last Sunday after working most of the day, possibly related to dehydration. - No associated neck pain. - Has been drinking a lot of water. - Recent increase in physical activity due to basement renovation. - Noted correlation between seizures and stress/dehydration post-Gamma Knife. - Currently taking Keppra 2000 mg daily; previously reduced to 1750 mg with temporary relief of foot pain but increased clonazepam use. - Clonazepam use decreased after returning to 2000 mg of Keppra. Brain Tumor: - Recent brain MRI in August showed persistent edema; Dr. Lundberg believes it is peritumoral edema, not radiation necrosis. - Sound sensitivity and tinnitus persist; uses earplugs in large crowds to prevent right foot pain. - Previous treatments for edema included Trentol, vitamin E, and Avastin; Avastin provided temporary relief but has cardiac side effects. - Dr. Devlin hesitant to retry Avastin due to history of AK. - Dr. Aviles recommended trying Boswellia for three months. Aortic Stenosis: - History of heart murmur; recent echo on May 19 showed mild to moderate aortic stenosis. - Scheduled to see Cardiology at [facility] in November. - No current symptoms of tiredness, lightheadedness, or chest discomfort. - Using CPAP regularly with good results. - Blood pressure typically around 110/60 mmHg; occasionally checks at home. MEDICATIONS: Current Outpatient Medications Medication Sig levETIRAcetam (KEPPRA) 500 mg tablet Take 2 tablets by mouth two times a day. sildenafil (VIAGRA) 100 mg tablet Take 1 pill 1 hour prior to sexual activity on empty stomach CPAP Initiate Auto PAP @ 5-20 cm of water with humidification. Mask (per patient preference) optional chin strap (if indicated) , filters, tubing, humidifier and lifetime supplies. rosuvastatin (CRESTOR) 40 mg tablet Take 40 mg by mouth. Multivitamin capsule Take 1 capsule by mouth once daily. aspirin(ADULT LOW DOSE ASPIRIN 81 MG TAB, DELAYED RELEASE) Take one(1) tablet daily. CPAP/BIPAP/OTHER APAP 5-20 cmH2O DME [facility] dexAMETHasone (DECADRON) 2 mg tablet 2 mg the day prior to the flight, the day of the flight and the day after the flight. clonazePAM orally disintegrating (KLONOPIN WAFER) 1 mg disintegrating tablet Dissolve 1 tablet under the tongue three times a day as needed for up to 30 days. No current facility-administered medications for this visit. ALLERGIES: ALLERGIES Allergen Reactions Atorvastatin Myalgia, Other: See Comments PAST MEDICAL HISTORY Diagnosis Date Acute myocardial infarction of lateral wall (HCC) 2012 s/p LAD stent Aortic valve stenosis Atrophy of left kidney Benign neoplasm of colon Benign neoplasm of meninges (HCC) 08/02/2020 Bursitis CAD (coronary artery disease) Chronic kidney disease External hemorrhoids Hammertoe of right foot Hyperlipidemia Hypokalemia Irregular heart rhythm Lipoma Meningioma (HCC) Mitral valve prolapse Neuroma MELL on CPAP Seizure (HCC) focal motor PAST SURGICAL HISTORY Procedure Laterality Date COLONOSCOPY FLX DX W/COLLJ SPEC WHEN PFRMD 10/29/2009 Colonoscopy COLONOSCOPY FLX DX W/COLLJ SPEC WHEN PFRMD 2016 HEMORRHOID;BAND LIGAT, SNGL/MUL 12/2016 MRI 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 PAST SURGICAL HISTORY OF Left 04/2017 left knee arthroscopy - meniscus PAST SURGICAL HISTORY OF 01/2013 PTCA x 1 - LAD PT ED HEART AND VASCULAR 2012 coronary angioplasty graft and stent FAMILY HISTORY Problem Relation Age of Onset Colon Cancer Mother ascending large intestine removed 2008 at 80 years old Prostate Cancer Brother Colon Cancer Maternal Grandmother portion lower colon removed 60 years old, colostomy Social History Tobacco Use Smoking status: Never Smokeless tobacco: Never Vaping Use Vaping status: Never Used Substance Use Topics Alcohol use: No Drug use: No Reviewed current medications, allergies, past medical history, surgical history, family history and social history today. REVIEW OF SYSTEMS Ears/Nose/Mouth/Throat: (+) sound sensitivity, (+) tinnitus Neck: (-) neck pain Cardiovascular: (-) chest pain Respiratory: (-) shortness of breath Musculoskeletal: (+) right foot pain, (+) left shoulder blade pain, (-) extremity swelling Neurological: (+) right leg weakness, (+) right leg numbness, (+) right arm numbness, (+) focal seizure episodes HEALTH MAINTENANCE: Reviewed health maintenance issues today and recommended the following in detail. Medicare Annual Wellness Visit Never done Advance Directive Discussion due on 05/14/2024 Depression Screening due on 10/30/2024 LAB REVIEWED: Imaging: (August) Brain MRI: Persistent edema noted. Differential included radiation necrosis versus peritumoral edema; clinical opinion favored peritumoral edema. (05/19/2024) Echocardiogram: Mild to moderate aortic stenosis. VITALS: BP (!) 96/44 Pulse 60 Wt 82.1 kg (181 lb) SpO2 96% BMI 25.24 kg/m Last 4 Encounter Wt Readings: Date: Wt: 10/22/2024 82.1 kg (181 lb) 10/01/2024 83.2 kg (183 lb 8 oz) 09/17/2024 83.5 kg (184 lb) 06/09/2024 82.6 kg (182 lb) PHYSICAL EXAMINATION: GENERAL: NAD, alert and oriented. SKIN: Unremarkable, no rash or skin lesions. HEAD: Normocephalic. LUNGS: Clear to auscultation bilaterally, no wheezes/rhonchi/rales. HEART: Regular rate and rhythm, grade 2/6 systolic murmur heard best over the aortic area. No ectopy. EXTREMITIES: Normal, no deformities, no skin discoloration, no edema. NEURO: Awake, alert and oriented x3, cranial nerves II-XII grossly intact, normal gait, no involuntary motions. ASSESSMENT AND PLAN 1. Meningioma (HCC) (D32.9) 2. Brain edema (HCC) (G93.6) 3. 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 Aviles suspects peritumoral edema rather than radiation necrosis. - Previous treatments included Trental, vitamin E, and Avastin; Avastin provided temporary relief but is not recommended due to patient's history of myocardial infarction. - Discussed trial of Boswellia for edema management; patient agrees to try for 3 months. - Recent episodes of right leg weakness and numbness, accompanied by Jacksonian seizures, possibly related to increased physical activity and dehydration. - Current Keppra dosage is 2000 mg daily; previously reduced to 1750 mg but increased back due to increased clonazepam use. - Ordered labs to check Keppra levels, electrolytes, and kidney function. - Follow-up with Dr. Devlin and Dr. Aviles as scheduled. 4. Coronary artery disease involving benton coronary artery of benton heart without angina pectoris (I25.10) 5. Presence of coronary angioplasty implant and graft (Z95.5) - History of myocardial infarction; no current chest pain or dyspnea. - Recent echocardiogram on May 19, 2024, showed mild to moderate aortic stenosis. - Scheduled appointment with Dr. Cooley at [facility] in November for further evaluation. - Advised patient on symptoms of severe aortic stenosis, including fatigue, lightheadedness, and chest discomfort. - Continue current management and follow-up with cardiology. 6. MELL on CPAP (G47.33) - Patient reports consistent use of CPAP with good results. - No reported issues with sleep quality or daytime somnolence. - Continue current CPAP therapy. 7. Glioblastoma (HCC) (C71.9) 8. Encounter for screening examination for other mental health and behavioral disorders (Z13.39) (See patient after visit summary for additional instructions to patient) Breanne Whittington MD Recording using [employer] software for draft documentation of the visit was discussed with the patient/authorized help desk representative; all questions welcomed and answered. Patient/authorized help desk representative agreed to proceed documented in this encounter [facility] 10-22-2024 Instructions Breanne Whittington MD - 10/22/2024 3:08 PM EDT - Try an [id number] Boswellia supplement daily for three months to help reduce the brain-tumor swelling; - Continue your current Keppra dose of 2,000 mg per day. - Have labs drawn today (no fasting required): complete blood count, electrolytes (including sodium and potassium), kidney function tests, and a Keppra level. - Drink plenty of fluids to stay well hydrated. - Monitor your blood pressure at home and record readings; let us know if they fall well above or below your usual range. - Continue annual echocardiograms to monitor the mild to moderate aortic stenosis. - Keep your cardiology appointment at [facility] in November for heart murmur evaluation. - Watch for any new lightheadedness, chest discomfort, or shortness of breath and contact the office if these occur. - Plan to return in about six months for your Medicare wellness exam. documented in this encounter [facility] 10-21-2024 Instructions Yancy Centeno MD - 10/21/2024 5:30 PM EDT - Continue levetiracetam (Keppra) 1000 mg each morning and evening as adjusted; this higher dose has helped reduce your focal seizure activity and need for clonazepam. - Take clonazepam 0.5 mg by mouth at the first sign of cramping or spreading tingling in your right foot/leg; this helps stop the focal seizure from moving upward. - Begin boswellia (frankincense extract) 450 mg Boswellia [employer] formulation 450 mg tablets, 3 tablets, 3x daily (dose per Dr. Aviles's note excerpt/verbatim), as recommended by Dr. Aviles; plan to take it for at least three months to see if it lessens the post-radiation swelling and right-foot pain. - Use dexamethasone short-term (up to 10-14 days) to manage increased pain or seizure risk during travel, noisy or stressful events. If you take it daily for two weeks, taper slowly over the following week before stopping. - When you expect exposure to loud noise, consider ear protection to reduce trigger-related pain or seizure sensations. - Schedule a follow-up visit with Dr. Aviles in about three months to review your response to boswellia and discuss need for any repeat MRI or other tests. - After that visit, plan to meet again so we can reassess your overall treatment, symptoms, and any medication adjustments. - If you experience new or worsening seizures, unexpected side effects, or changes in your symptoms, contact our office right away. -From my perspective I recommend a brain MR w and w/o contrast and perfusion, 12 months from the last one done on 09/01/2024, and a follow up visit, 1-2 days after the MRI. documented in this encounter [facility] 10-20-2024 Note HNO ID: [id number] Author: YANCY CENTENO MD Service: ? Author Type: Physician Type: Progress Notes Filed: 10/21/2024 17:33 Note Text: Neurological Start [facility] NEURO-ONCOLOGY VIRTUAL VISIT NOTE This is a virtual visit using HIPAA compliant video platform. It required patient-provider interaction for the medical decision making as documented below. I have communicated my name and active licensure. The patient's identity and physical location were verified at the time of this visit. Either the patient or their legal help desk representative has been informed of the risks and benefits of -- and alternatives to -- treatment through a remote evaluation and consents to proceed with the evaluation remotely. 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 He is accompanied by his , who provides additional history. Watson was diagnosed with a parasagittal meningioma and underwent stereotactic radiosurgery with Gamma Knife in August 2020. Following the procedure, he developed peritumoral edema, which has been confirmed on MRI. This edema has led to persistent symptoms, including paresthesias and pain in the right lower extremity, as well as focal seizures. He is currently managing these symptoms with levetiracetam (Keppra) and PRN clonazepam. He reports that increasing his Keppra dosage to 2000 mg has reduced the frequency of clonazepam use, which he previously took 2-3 times per week. He notes that clonazepam causes significant fatigue and decreased energy for about 24 hours after use. Watson has also been using dexamethasone PRN, particularly during flights or stressful situations, which he finds beneficial. He inquires about the safe duration and frequency of dexamethasone use, especially with upcoming travel plans. He has tried various treatments to address the edema, including bevacizumab, vitamin E, and Tentro. He reports that bevacizumab provided temporary improvement, allowing him to resume driving and other activities, but did not result in sustained symptom relief. He expresses concern about the risks of bevacizumab, particularly given his history of a heart attack. He experiences chronic pain in his right foot, which is exacerbated by sound sensitivity, dehydration, stress, and physical exertion. He describes episodes of focal seizures in his right leg, characterized by weakness and inability to bear weight, which have occurred more frequently during a recent house renovation. These episodes are sometimes preceded by a pulsing sensation in his foot and can progress to involve his right arm, neck, and head. He manages these episodes with clonazepam when necessary. He reports that sound sensitivity triggers pain in his right foot and inquires whether the edema is located near the auditory pathways. He manages sound sensitivity by wearing earplugs in noisy environments. He has been using a CPAP machine, which has improved his sleep quality. He is retired and tries to remain active within his limits. He expresses a willingness to try new treatments, including Boswellia, and inquires about other potential options such as laser interstitial thermal therapy and electromagnetic pulsation. Past Diagnostic Results: - (08/2024) MRI: Persistent peritumoral edema. - (08/2023) MRI Perfusion: Elevated cerebral blood volume associated with the meningioma. - (08/2020) MRI: Parasagittal meningioma. Physical Exam This is a virtual exam based on observational as below: No vital signs. NEURO: on observation, CN II-XII intact, no pronator drift, no tremor noted, self reported and/or on observation moves extremities equally, no self-reported sensory deficits and ambulating without difficulty. Assessment/Plan 1. Meningioma (HCC) (D32.9) 2. Personal history of irradiation (Z92.3) - Presumed parasagittal meningioma treated with stereotactic radiosurgery (Gamma Knife) in August [address] Lundberg and Dr[address] Sutton. - Post-radiation, developed peritumoral edema visible on MRI, contributing to symptoms. - Previous treatments for edema included bevacizumab, vitamin E, and pentoxifylline; bevacizumab provided temporary relief. - Recent consultation with Dr. Aviles confirmed edema is peritumoral, not radiation necrosis. - Discussed potential use of Boswellia as recommended by Dr. Lundberg to reduce inflammation and edema; patient agrees to try Boswellia [facility] formulation 450 mg tablets, 3 tablets, 3x daily (per Dr. Aviles's note excerpt/verbatim). - Patient has been using dexamethasone PRN for short-term relief during stressful situations or travel; advised that short-term use (up to 10 days) is acceptable. - Reviewed MRI perfusion images from August 2023 showing expected el (more content not included)... [facility] 10-20-2024 History of Presen t illness Narrative Images from the original note were not included. Neurological Start [facility] NEURO-ONCOLOGY VIRTUAL VISIT NOTE This is a virtual visit using HIPAA compliant video platform. It required patient-provider interaction for the medical decision making as documented below. I have communicated my name and active licensure. The patient's identity and physical location were verified at the time of this visit. Either the patient or their legal help desk representative has been informed of the risks and benefits of -- and alternatives to -- treatment through a remote evaluation and consents to proceed with the evaluation remotely. 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 He is accompanied by his , who provides additional history. Watson was diagnosed with a parasagittal meningioma and underwent stereotactic radiosurgery with Gamma Knife in August 2020. Following the procedure, he developed peritumoral edema, which has been confirmed on MRI. This edema has led to persistent symptoms, including paresthesias and pain in the right lower extremity, as well as focal seizures. He is currently managing these symptoms with levetiracetam (Keppra) and PRN clonazepam. He reports that increasing his Keppra dosage to 2000 mg has reduced the frequency of clonazepam use, which he previously took 2-3 times per week. He notes that clonazepam causes significant fatigue and decreased energy for about 24 hours after use. Watson has also been using dexamethasone PRN, particularly during flights or stressful situations, which he finds beneficial. He inquires about the safe duration and frequency of dexamethasone use, especially with upcoming travel plans. He has tried various treatments to address the edema, including bevacizumab, vitamin E, and Tentro. He reports that bevacizumab provided temporary improvement, allowing him to resume driving and other activities, but did not result in sustained symptom relief. He expresses concern about the risks of bevacizumab, particularly given his history of a heart attack. He experiences chronic pain in his right foot, which is exacerbated by sound sensitivity, dehydration, stress, and physical exertion. He describes episodes of focal seizures in his right leg, characterized by weakness and inability to bear weight, which have occurred more frequently during a recent house renovation. These episodes are sometimes preceded by a pulsing sensation in his foot and can progress to involve his right arm, neck, and head. He manages these episodes with clonazepam when necessary. He reports that sound sensitivity triggers pain in his right foot and inquires whether the edema is located near the auditory pathways. He manages sound sensitivity by wearing earplugs in noisy environments. He has been using a CPAP machine, which has improved his sleep quality. He is retired and tries to remain active within his limits. He expresses a willingness to try new treatments, including Boswellia, and inquires about other potential options such as laser interstitial thermal therapy and electromagnetic pulsation. Past Diagnostic Results: - (08/2024) MRI: Persistent peritumoral edema. - (08/2023) MRI Perfusion: Elevated cerebral blood volume associated with the meningioma. - (08/2020) MRI: Parasagittal meningioma. Physical Exam This is a virtual exam based on observational as below: No vital signs. NEURO: on observation, CN II-XII intact, no pronator drift, no tremor noted, self reported and/or on observation moves extremities equally, no self-reported sensory deficits and ambulating without difficulty. Assessment/Plan 1. Meningioma (HCC) (D32.9) 2. Personal history of irradiation (Z92.3) - Presumed parasagittal meningioma treated with stereotactic radiosurgery (Gamma Knife) in August [address] Lundberg and Dr. Sutton. - Post-radiation, developed peritumoral edema visible on MRI, contributing to symptoms. - Previous treatments for edema included bevacizumab, vitamin E, and pentoxifylline; bevacizumab provided temporary relief. - Recent consultation with Dr. Aviles confirmed edema is peritumoral, not radiation necrosis. - Discussed potential use of Boswellia as recommended by Dr. Lundberg to reduce inflammation and edema; patient agrees to try Boswellia [facility] formulation 450 mg tablets, 3 tablets, 3x daily (per Dr. Aviles's note excerpt/verbatim). - Patient has been using dexamethasone PRN for short-term relief during stressful situations or travel; advised that short-term use (up to 10 days) is acceptable. - Reviewed MRI perfusion images from August 2023 showing expected elevated cerebral blood volume associated with the meningioma. - Follow-up with Dr. Aviles in 3 months to assess response to Boswellia. 3. Localization-related (focal) (partial) idiopathic epilepsy and epileptic syndromes with seizures of localized onset, not intractable, without status epilepticus (HCC) (G40.009) - Experiencing focal seizures primarily affecting the right lower extremity. - Currently on levetiracetam 1000 mg BID; recent increase from 750 mg BID has reduced the frequency of clonazepam use. - Clonazepam 0.5 mg used PRN for seizures; patient reports significant fatigue with its use. - Advised to continue current medication regimen and monitor for seizure activity. 4. Diffuse pain in right lower extremity (M79.604) - Chronic pain in the right foot and leg, exacerbated by sound sensitivity, dehydration, and physical exertion. - Pain management includes avoiding known triggers and using earplugs in noisy environments. - Discussed potential benefits of Boswellia in reducing inflammation and pain. - Advised to maintain adequate hydration and avoid overexertion. PLAN: -From my perspective I recommend a brain MR w and w/o contrast and perfusion, 12 months from the last one done on 09/01/2024, and a follow up visit, 1-2 days after the MRI. At the end, Mr. Rodriguez and his NARCISA Ocampo, verbalized understanding, and agreement with above recommendations and had no further questions or concerns for the moment. I encourage him to call me at my office if he has any questions about the above plan. I spent a total of 70 minutes which included preparing to see the patient, [id number] patient care, additional 15 minutes to completing clinical documentation, obtaining and/or reviewing separately obtained history, performing a medically appropriate examination, counseling and educating the patient/family/caregiver, ordering medications, tests, or procedures, communicating with other HCPs (not separately reported), independently interpreting results (not separately reported), communicating results to the patient/family/caregiver, and care coordination (not separately reported). Yancy Centeno MD Staff Neuro-Oncologist [facility] CC: -Dr. Trev Sutton, Neurosurgery, [facility] -CC-Pipo Aviles MD, Radiation Oncology, [facility], [facility], [facility], [facility] [place] -Joe Santos MD, Nephrology, [facility] Claudio Parks MD, Cardiology, [address] [place] [address], [address], [place] [phone], PHONE: -Dr. Catarino Camacho, Epilepsy, [facility] -Breanne Whittington, JORGE, PCP, [address] [facility], [facility] [id number], ; documented in this encounter [facility] 10-01-2024 Note HNO ID: [id number] Author: PIPO AVILES MD Service: ? Author Type: Physician Type: Progress Notes Filed: 10/01/2024 20:46 Note Text: Radiation Oncology - New Patient/Consult Note PATIENT NAME: Watson Rodriguez PATIENT DIAGNOSIS: 64 year old male with left parasagittal meningioma s/p GKRS (2500 cGy/ 5 fx) to parasagittal completed 08/20/20. Treatment complicated by slight peritumoral edema with symptoms. HPI: The patient is a 64 year old, right handed male who presents with above diagnosis, for an opinion regarding the role of radiation therapy in the management of the patient's disease. Final recommendations will be communicated back to the requesting physician by way of the shared medical record, or letter to requesting physician via US mail. History of Present Illness: Watson Rodriguez is a 63 year old male investigated for right leg numbness and weakness (couldn't stand on it) April 2020. Work up for lumbar spine cause non conclusive. 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 His right leg still numb and weakness. High step gait to avoid dragging his right lower extremity. He had GK-SRS to the tumor (25Gy/5fx) from 08/16/2020-08/20/2020. 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 He has since seen neurology with Dr. Altamirano and switched to Dr. Centeno for seizure management. Dr. Centeno had treated him with Avastin completed April 2022 with improvement at the time, but has since developed recurrence of his symptoms including R foot paresthesias possibly sensory seizures. 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 Dr. Centeno discussed possible options, more along the lines of treatment for radiation necrosis. Dr. Rodriguez is interested in hearing other options. Dr. 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 Takes clonazepam with help. AED: Keppra 1000 mg AM AND 1000 mg PM Steroids: dexamethasone 2 mg PRN ALLERGIES Allergen Reactions Atorvastatin Myalgia, Other: See Comments MEDICATIONS: CPAP/BIPAP/OTHER APAP 5-20 cmH2O DME [facility] dexAMETHasone (DECADRON) 2 mg tablet 2 mg the day prior to the flight, the day of the flight and the day after the flight. clonazePAM orally disintegrating (KLONOPIN WAFER) 1 mg disintegrating tablet Dissolve 1 tablet under the tongue three times a day as needed for up to 30 days. levETIRAcetam (KEPPRA) 500 mg tablet Take 2 tablets by mouth two times a day. sildenafil (VIAGRA) 100 mg tablet Take 1 pill 1 hour prior to sexual activity on empty stomach CPAP Initiate Auto PAP @ 5-20 cm of water with humidification. Mask (per patient preference) optional chin strap (if indicated) , filters, tubing, humidifier and lifetime supplies. rosuvastatin (CRESTOR) 40 mg tablet Take 40 mg by mouth. Multivitamin capsule Take 1 capsule by mouth once daily. aspirin(ADULT LOW DOSE ASPIRIN 81 MG TAB, DELAYED RELEASE) Take one(1) tablet daily. PAST MEDICAL HISTORY Diagnosis Date Acute myocardial infarction of lateral wall (HCC) 2012 s/p LAD stent Aortic valve stenosis Atrophy of left kidney Benign neoplasm of colon Benign neoplasm of meninges (HCC) 08/02/2020 Bursitis CAD (coronary artery disease) Chronic kidney disease External hemorrhoids Hammertoe of right foot Hyperlipidemia Hypokalemia Irregular heart rhythm Lipoma Meningioma (HCC) Mitral valve prolapse Neuroma MELL on CPAP Seizure (HCC) focal motor Prior radiation therapy, collagen vascular disease, or inflammatory bowel disease: Yes, previous GKRS 08/20/20. Any implanted or external electric devices? No PAST SURGICAL HISTORY Procedure Laterality Date COLONOSCOPY FLX DX W/COLLJ SPEC WHEN PFRMD 10/29/2009 Colonoscopy COLONOSCOPY FLX DX W/COLLJ SPEC WHEN PFRMD 2016 HEMORRHOID;BAND LIGAT, SNGL/MUL 12/2016 MRI 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 PAST SURGICAL HISTORY OF Left 04/2017 left knee arthroscopy - meniscus PAST SURGICAL HISTORY OF 01/2013 PTCA x 1 - LAD PT ED HEART AND VASCULAR 2012 coronary angioplasty graft and stent FAMILY HISTORY Problem Relation Age of Onset Colon Cancer Mother ascending large intestine removed 2008 at 80 years old Prostate Cancer Brother Colon Cancer Maternal Grandmother portion lower colon removed 60 years old, colostomy SOCIAL HISTORY: Marital Status: Working: Retired Tobacco Use:No Alcohol Use:No Lives in [place], [place] COMPLETE REVIEW OF SYSTEMS: As noted in HPI Neuro detailed: Headache: No Pain: Right lower leg and feet Pain interventions: none required (more content not included)... [facility] 09-19-2024 Telephone encounter Note Thank you. I will fax them. Calixto Rae LPN [facility] 09-19-2024 Miscellaneous Notes Thank you. I will fax them. Calixto Rae LPN [facility] called in stating they received compliance download for pt but stated he is not with them but is with [facility]. Please advise documented in this encounter [facility] 09-19-2024 Telephone encounter Note [facility] called in stating they received compliance download for pt but stated he is not with them but is with [facility]. Please advise [facility] 09-17-2024 History of Presen t illness Narrative Images from the original note were not included. [facility] Follow up/ Established patient visit Date of last visit : 09/11/23 The following Impression/Plan was copied and pasted from the patient's last [facility] visit on 09/11/23: IMPRESSION: Mell on cpap (primary encounter diagnosis) Symptomatic localization-related epilepsy (hcc) History of myocardial infarction Watson Rodriguez is a very pleasant 63 year old male with PMH of MELL on CPAP, intracranial meningioma, seizure, CAD, nonrheumatic aortic valve stenosis, HLD, history of AK, MVP, myocardial ischemia, presence of coronary angioplasty implant and graft, tinnitus, bilateral hearing loss, colonic polyps, left renal atrophy, and stage I CKD. HST 01/21/2021 revealed at least moderate MELL (AHI of 19.2) that was associated with a minimum oxygen saturation of 87%; (BMI 30.9). He was set up with auto CPAP ( 10) on 03/04/2021 via [facility]. He has been using and benefiting from PAP therapy since that time. (In July-August 2020, he had a seizure during sleep. Following gamma-knife surgery in August 2020, he started having more seizures. He was started on Keppra and evaluated for MELL. Since starting PAP tx, his nighttime seizures have resolved.) His mask is worn out and leaking more frequently. rAHI has been elevated with higher mask leaks. He uses Dreamwear FFM w/ medium headgear. Small headgear was not tolerated. Viri FFM was not tolerated. We reviewed mask alternatives. If leaks persists after replacing supplies, he may benefit from changing masks. PLAN: - Continue Auto CPAP at current settings of 5-20 cmH2O. - Excellent compliance - Keep up the great work! - AHI is mildly elevated, likely due to high mask leak - If leak is still high after getting new supplies - you may want to try the new AirFit F40 mask - Remember to clean your mask and equipment regularly, as directed. - Avoid use of ozone manager floor, SoClean devices, or UV cleaning devices - Avoid using alcohol or alcohol-containing products on your mask, as this may compromise the integrity of the mask materials and contribute to leak issues - Use only baby shampoo and water, mild dish soap and water, or CPAP-specific wipes to clean your supplies. - You should be eligible for new supplies approximately every 3-6 months, depending on your insurance coverage. Contact your Durable Medical Equipment (DME) company for new supplies as needed. - Let me know if anything else is needed - Follow-up yearly, sooner if needed (virtual is fine) Miguelangel Sepnce APRN.[employer] Here for follow up for moderate MELL on autoCPAP, annual follow up Asks about [employer], he will be doing some camping Asks about OTC med to help with staying asleep, no relief with melatonin or magnesium SLEEP APNEA Sleep apnea type : MELL, Most Recent Apnea-Hypopnea Index (AHI): 19.2 on HSAT, supine AHI 27.4 Treatment : PAP therapy DME: [facility] for supplies (machine is from [employer]) PAP History: Uses AutoPAP for 6.75 hours per night, 7 nights per week. Current PAP settin-20 cm H2O. Difficulties with AutoPAP: None Reviewed objective PAP compliance data: AHI 4.7 Mask type: full face mask F30i Mask issues: none There is a perceived benefit by the patient: better sleep Observers report abolition of snoring with AutoPAP use. SLEEP HYGIENE QUESTIONS: Time it takes to fall sleep : quick Number of times patient wakes up per night : wakes after 3-4 hrs, can be difficult to fall back asleep Gets 7 hrs of sleep on average PATIENT-ENTERED QUESTIONNAIRE [facility]EP [facility]ORES 09/15/2024 Sleep Questions Reason for visit: Sleep apnea On average, hours of sleep in 24 hours: 7 Average hours of CPAP per night: 6.45 Percent of nights CPAP used at least 4 hours: 100 Accidents or near accidents due to drowsy drivin 03/15/2023 09/05/2023 09/15/2024 [place] Sleepiness Scale Score 4 (No clinically significant daytime sleepiness) 3 (No clinically significant daytime sleepiness) 2 (No clinically significant daytime sleepiness) 09/05/2023 12/04/2023 09/15/2024 PROMIS CAT Sleep Disturbance PROMIS Sleep Disturbance T-Score 46 (within normal limits) 46 (within normal limits) 49 (within normal limits) PROMIS Sleep Disturbance Percentile 66 66 54 07/16/2020 Insomnia Severity Index Score 5 03/07/2021 Restless Leg Syndrome Score 7 (Mild Symptoms) 03/15/2023 09/05/2023 09/15/2024 PHQ-9 Score 1 1 2 03/31/2024 03/31/2024 09/15/2024 PROMIS Global Health - (T-Scores - the mean of general population = 50. Five points is a clinically meaningful difference.) Physical T-Score 50.8 50.8 50.8 Mental T-Score 62.5 62.5 59 ALLERGIES Allergen Reactions Atorvastatin Myalgia, Other: See Comments CURRENT MEDICATIONS: dexAMETHasone (DECADRON) 2 mg tablet 2 mg the day prior to the flight, the day of the flight and the day after the flight. levETIRAcetam (KEPPRA) 500 mg tablet Take 2 tablets by mouth two times a day. sildenafil (VIAGRA) 100 mg tablet Take 1 pill 1 hour prior to sexual activity on empty stomach CPAP Initiate Auto PAP @ 5-20 cm of water with humidification. Mask (per patient preference) optional chin strap (if indicated) , filters, tubing, humidifier and lifetime supplies. rosuvastatin (CRESTOR) 40 mg tablet Take 40 mg by mouth. Multivitamin capsule Take 1 capsule by mouth once daily. aspirin(ADULT LOW DOSE ASPIRIN 81 MG TAB, DELAYED RELEASE) Take one(1) tablet daily. CPAP/BIPAP/OTHER APAP 5-20 cmH2O DME [facility] clonazePAM orally disintegrating (KLONOPIN WAFER) 1 mg disintegrating tablet Dissolve 1 tablet under the tongue three times a day as needed for up to 30 days. PHYSICAL EXAMINATION: Vital Signs: BP 106/65 Pulse 60 Resp 16 Wt 83.5 kg (184 lb) SpO2 96% BMI 25.66 kg/m PHYSICAL EXAM: General appearance: pleasant, NAD Mental status: alert and oriented, able to provide own history Constitutional: WNL Skin: No visible rashes on exposed skin Neuro: No focal deficits observed, no tremors IMPRESSION: Mell on cpap (primary encounter diagnosis) Watson Rodriguez is a 64 year old male with moderate MELL --Patient is compliant with PAP therapy and reports subjective benefits from treatment (sleeps better) --We reviewed PAP compliance report; AHI is normalized (4.7) PLAN: - Continue Auto CPAP at 5-20 cmH2O. DME [facility]. - Remember to clean your mask and equipment regularly, as directed. - You should be eligible for new supplies approximately every 3-6 months, depending on your insurance coverage. Contact your Durable Medical Equipment (DME) company for new supplies as needed. - Follow up in 12 months with ANTHONY - recommend talk to [employer] about travel cpaps - discussed sleep maintenance insomnia Lakisha Casey APRN.CNP documented in this encounter [facility] 09-17-2024 Note HNO ID: [id number] Author: LAKISHA CASEY APRN.CNP Service: ? Author Type: Nurse Practitioner Type: Progress Notes Filed: 09/21/2024 19:58 Note Text: [facility] Follow up/ Established patient visit Date of last visit : 09/11/23 The following Impression/Plan was copied and pasted from the patient's last [facility] visit on 09/11/23: IMPRESSION: Mell on cpap (primary encounter diagnosis) Symptomatic localization-related epilepsy (hcc) History of myocardial infarction Watson Rodriguez is a very pleasant 63 year old male with PMH of MELL on CPAP, intracranial meningioma, seizure, CAD, nonrheumatic aortic valve stenosis, HLD, history of AK, MVP, myocardial ischemia, presence of coronary angioplasty implant and graft, tinnitus, bilateral hearing loss, colonic polyps, left renal atrophy, and stage I CKD. HST 01/21/2021 revealed at least moderate MELL (AHI of 19.2) that was associated with a minimum oxygen saturation of 87%; (BMI 30.9). He was set up with auto CPAP ( 10) on 03/04/2021 via [facility]. He has been using and benefiting from PAP therapy since that time. (In July-August 2020, he had a seizure during sleep. Following gamma-knife surgery in August 2020, he started having more seizures. He was started on Keppra and evaluated for MELL. Since starting PAP tx, his nighttime seizures have resolved.) His mask is worn out and leaking more frequently. rAHI has been elevated with higher mask leaks. He uses Dreamwear FFM w/ medium headgear. Small headgear was not tolerated. Viri FFM was not tolerated. We reviewed mask alternatives. If leaks persists after replacing supplies, he may benefit from changing masks. PLAN: - Continue Auto CPAP at current settings of 5-20 cmH2O. - Excellent compliance - Keep up the great work! - AHI is mildly elevated, likely due to high mask leak - If leak is still high after getting new supplies - you may want to try the new AirFit F40 mask - Remember to clean your mask and equipment regularly, as directed. - Avoid use of ozone manager floor, SoClean devices, or UV cleaning devices - Avoid using alcohol or alcohol-containing products on your mask, as this may compromise the integrity of the mask materials and contribute to leak issues - Use only baby shampoo and water, mild dish soap and water, or CPAP-specific wipes to clean your supplies. - You should be eligible for new supplies approximately every 3-6 months, depending on your insurance coverage. Contact your Durable Medical Equipment (DME) company for new supplies as needed. - Let me know if anything else is needed - Follow-up yearly, sooner if needed (virtual is fine) Miguelangel Spence, HONEY.[employer] Here for follow up for moderate MELL on autoCPAP, annual follow up Asks about [employer], he will be doing some camping Asks about OTC med to help with staying asleep, no relief with melatonin or magnesium SLEEP APNEA Sleep apnea type : MELL, Most Recent Apnea-Hypopnea Index (AHI): 19.2 on HSAT, supine AHI 27.4 Treatment : PAP therapy DME: [facility] for supplies (machine is from [employer]) PAP History: Uses AutoPAP for 6.75 hours per night, 7 nights per week. Current PAP settin-20 cm H2O. Difficulties with AutoPAP: None Reviewed objective PAP compliance data: AHI 4.7 Mask type: full face mask F30i Mask issues: none There is a perceived benefit by the patient: better sleep Observers report abolition of snoring with AutoPAP use. SLEEP HYGIENE QUESTIONS: Time it takes to fall sleep : quick Number of times patient wakes up per night : wakes after 3-4 hrs, can be difficult to fall back asleep Gets 7 hrs of sleep on average PATIENT-ENTERED QUESTIONNAIRE SLEEP SCORES 09/15/2024 Sleep Questions Reason for visit: Sleep apnea On average, hours of sleep in 24 hours: 7 Average hours of CPAP per night: 6.45 Percent of nights CPAP used at least 4 hours: 100 Accidents or near accidents due to drowsy drivin 03/15/2023 09/05/2023 09/15/2024 [place] Sleepiness Scale Score 4 (No clinically significant daytime sleepiness) 3 (No clinically significant daytime sleepiness) 2 (No clinically significant daytime sleepiness) 09/05/2023 12/04/2023 09/15/2024 PROMIS CAT Sleep Disturbance PROMIS Sleep Disturbance T-Score 46 (within normal limits) 46 (within normal limits) 49 (within normal limits) PROMIS Sleep Disturbance Percentile 66 66 54 07/16/2020 Insomnia Severity Index Score 5 03/07/2021 Restless Leg Syndrome Score 7 (Mild Symptoms) 03/15/2023 09/05/2023 09/15/2024 PHQ-9 Score 1 1 2 03/31/2024 03/31/2024 09/15/2024 PROMIS Global Health - (T-Scores - the mean of general population = 50. Five points is a clinically meaningful difference.) Physical T-Score 50.8 50.8 50.8 Mental T-Score 62.5 62.5 59 ALLERGIES Allergen Reactions (more content not included)... [facility] 09-16-2024 Telephone encounter Note Done [facility] 09-16-2024 Miscellaneous Notes Done Scheduling Request - New Patient Time Frame: 2 weeks or best Orders: Consult radiation oncology Provider or Provider Group: Dr Aviles Visit type: In person Referring: Dr Devlin Diagnosis: meningioma s/p GKS in 2020 Patient requests a follow up with Dr Aviles- Last seen in 2020- Not sure if this is then considered a new consult. Thank you Florencia documented in this encounter [facility] 09-11-2024 Telephone encounter Note Scheduling Request - New Patient Time Frame: 2 weeks or best Orders: Consult radiation oncology Provider or Provider Group: Dr Aviles Visit type: In person Referring: Dr Devlin Diagnosis: meningioma s/p GKS in 2020 Patient requests a follow up with Dr Aviles- Last seen in 2020- Not sure if this is then considered a new consult. Thank you Florencia [facility] Work Phone: 09-09-2024 Telephone encounter Note Summary: Called him back, to discuss Dr. Aviles's input I called the patient back, and informed him, that Dr. Aviles indicated, that something that could be considered, is hyperbaric oxygen therapy. The patient tells me, that he will try to get an appointment to talk to Dr. Aviles, as he has questions about other strategies, even including the steroids. I think it will be best, to talk to Dr. Aviles as he is our expert, when it comes to treatments for radionecrosis/cerebral edema (potentially induced by radiation). This is, that he will call Dr. Aviles's office, to see try to set up an appointment. Yancy Centeno MD [facility] 09-09-2024 Miscellaneous Notes Summary: Called him back, to discuss Dr. Aviles's input I called the patient back, and informed him, that Dr. Aviles indicated, that something that could be considered, is hyperbaric oxygen therapy. The patient tells me, that he will try to get an appointment to talk to Dr. Aviles, as he has questions about other strategies, even including the steroids. I think it will be best, to talk to Dr. Aviles as he is our expert, when it comes to treatments for radionecrosis/cerebral edema (potentially induced by radiation). This is, that he will call Dr. Aviles's office, to see try to set up an appointment. Yancy Centeno MD documented in this encounter [facility] 09-09-2024 Telephone encounter Note Summary: Recommendations from Dr. Aviles regarding therapies for cerebral edema I communicated with Dr. Aviles, as planned, to ask his expert opinion, on management of cerebral edema or radionecrosis. This in the context, that the patient is still having symptoms, attributed, to the peritumoral edema. The patient has had bevacizumab, with improvement of similar symptoms, but he is still having right leg paresthesias, with paroxysmal, cold extension of the right foot. The question, is whether there are any other options for management. The patient has had [place] bevacizumab as well control and vitamin D. Other options that I have seen been used by or radiation oncologist particular Dr. Aviles, for radionecrosis and no cerebral edema, is Boswellia and hyperbaric chamber. Dr. Aviles, commented, that he will not recommend Boswellia, as this agent is used for radionecrosis, and in the case of the patient radionecrosis, is not a diagnosis that he will attribute to the patient. However cerebral edema, could be treated with hyperbaric oxygen therapy ( HBOT), and this is something that can be considered for the patient. I called Mr. Rodriguez but he was not available, and I left a message on his voicemail that I would call him back. Yancy Centeno MD [facility] 09-09-2024 Miscellaneous Notes Summary: Recommendations from Dr. Aviles regarding therapies for cerebral edema I communicated with Dr. Aviles, as planned, to ask his expert opinion, on management of cerebral edema or radionecrosis. This in the context, that the patient is still having symptoms, attributed, to the peritumoral edema. The patient has had bevacizumab, with improvement of similar symptoms, but he is still having right leg paresthesias, with paroxysmal, cold extension of the right foot. The question, is whether there are any other options for management. The patient has had [place] bevacizumab as well control and vitamin D. Other options that I have seen been used by or radiation oncologist particular Dr. Aviles, for radionecrosis and no cerebral edema, is Boswellia and hyperbaric chamber. Dr. Aviles, commented, that he will not recommend Boswellia, as this agent is used for radionecrosis, and in the case of the patient radionecrosis, is not a diagnosis that he will attribute to the patient. However cerebral edema, could be treated with hyperbaric oxygen therapy ( HBOT), and this is something that can be considered for the patient. I called Mr. Rodriguez but he was not available, and I left a message on his voicemail that I would call him back. Yancy Centeno MD documented in this encounter [facility] 09-03-2024 Note HNO ID: [id number] Author: YANCY CENTENO MD Service: ? Author Type: Physician Type: Progress Notes Filed: 09/03/2024 12:51 Note Text: Neurological Start [facility] NEURO-ONCOLOGY VIRTUAL VISIT NOTE This is a virtual visit using HIPAA compliant video platform. It required patient-provider interaction for the medical decision making as documented below. I have communicated my name and active licensure. The patient's identity and physical location were verified at the time of this visit. Either the patient or their legal help desk representative has been informed of the risks and benefits of -- and alternatives to -- treatment through a remote evaluation and consents to proceed with the evaluation remotely. 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 Work up for lumbar spine cause non conclusive. 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 His right leg still numb and weakness. High step gait to avoid dragging his right lower extremity. He had GK-SRS to the tumor (25Gy/5fx) from 08/16/2020-08/20/2020. 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 September 03, 2024 Virtual visit The patient is unaccompanied. Till having right foot paesthesia events. With occasional associated flexion events. Takes clonazepam with help. He mentioned about agenst he learned that are antiimflamatory, and that may help his paresthesias, assuming are coming form the peritumorla edema. and asked whether this is in use in his situation -Agents he mentioned: -somali skullcap -Capsaicin He has been on lipoic acid provided by his neurologist: no significant help. I discussed options for cerebral edema to include: -Boswelia -Hyperbaric chanbetr -Increase the dose of LEV, but he is reluctant to higher dose, due to having more pain on LEV 1000 mg BID. Levetiracetam (Keppra) 750 in am and 1000 at HS Tumeric some benefit. Therapy Status Data Form Past Medical History: PAST MEDICAL HISTORY Diagnosis Date Acute myocardial infarction of lateral wall (HCC) 2012 s/p LAD stent Aortic valve stenosis Atrophy of left kidney Benign neoplasm of colon Benign neoplasm of meninges (HCC) 08/02/2020 Bursitis CAD (coronary artery disease) Chronic kidney disease External hemorrhoids Hammertoe of right foot Hyperlipidemia Hypokalemia Irregular heart rhythm Lipoma Meningioma (HCC) Mitral valve prolapse Neuroma MELL on CPAP Seizure (HCC) focal motor Past Surgical History: PAST SURGICAL HISTORY Procedure Laterality Date COLONOSCOPY FLX DX W/COLLJ SPEC WHEN PFRMD 10/29/2009 Colonoscopy COLONOSCOPY FLX DX W/COLLJ SPEC WHEN PFRMD 2016 HEMORRHOID;BAND LIGAT, SNGL/MUL 12/2016 MRI 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 PAST SURGICAL HISTORY OF Left 04/2017 left knee arthroscopy - meniscus PAST SURGICAL HISTORY OF 01/2013 PTCA x 1 - LAD PT ED HEART AND VASCULAR 2012 coronary angioplasty graft and stent Family History: FAMILY HISTORY Problem Relation Age of Onset Colon Cancer Mother ascending large intestine removed 2008 at 80 years old Prostate Cancer Brother Colon Cancer Maternal Grandmother portion lower colon removed 60 years old, colostomy Social History Tobacco Use Smoking status: Never Smokeless tobacco: Never Vaping Use Vaping status: Never Used Substance Use Topics Alcohol use: No Drug use: No Allergies: Atorvastatin Current Outpatient Medications on File Prior to Visit Medication Sig levETIRAcetam (KEPPRA) 500 mg tablet Take 2 tablets by mouth twice daily. midazolam (NAYZILAM) 5 mg/spray (0.1 mL) nasal spray Use 1 spray in one nostril as needed for seizures. May repeat dose in alternate nostril after 10 minutes based on response and tolerability. Only take for seizures lasting more than 3 minutes or more than 3 seizures in an hour clonazePAM orally disintegrating (KLONOPIN WAFER) 1 mg disintegrating tablet Dissolve 1 tablet under the tongue three times daily as needed (seizures) for up to 30 days. lacosamide (VIMPAT) 100 mg tab Take 200 Mg BID sildenafil (VIAGRA) 100 mg tablet Take 1 pill 1 hour prior to sexual activity on empty stomach dexAMETHasone (DECADRON) 2 mg tablet 2 mg the day prior to the flight, the day of the flight and the day after the flight. CPAP Initiate Auto PAP @ 5-20 cm of water with humidification. Mask (per patient preference) optional chin strap (if indicated) , filters, tubing, humidifier and lifetime supplies. rosuvastatin (CRESTOR) 40 mg tablet Take 40 (more content not included)... [facility] 09-03-2024 History of Presen t illness Narrative Images from the original note were not included. Neurological Start [facility] NEURO-ONCOLOGY VIRTUAL VISIT NOTE This is a virtual visit using HIPAA compliant video platform. It required patient-provider interaction for the medical decision making as documented below. I have communicated my name and active licensure. The patient's identity and physical location were verified at the time of this visit. Either the patient or their legal help desk representative has been informed of the risks and benefits of -- and alternatives to -- treatment through a remote evaluation and consents to proceed with the evaluation remotely. 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 Work up for lumbar spine cause non conclusive. 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 His right leg still numb and weakness. High step gait to avoid dragging his right lower extremity. He had GK-SRS to the tumor (25Gy/5fx) from 08/16/2020-08/20/2020. 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 September 03, 2024 Virtual visit The patient is unaccompanied. Till having right foot paesthesia events. With occasional associated flexion events. Takes clonazepam with help. He mentioned about agenst he learned that are antiimflamatory, and that may help his paresthesias, assuming are coming form the peritumorla edema. and asked whether this is in use in his situation -Agents he mentioned: -somali skullcap -Capsaicin He has been on lipoic acid provided by his neurologist: no significant help. I discussed options for cerebral edema to include: -Boswelia -Hyperbaric chanbetr -Increase the dose of LEV, but he is reluctant to higher dose, due to having more pain on LEV 1000 mg BID. Levetiracetam (Keppra) 750 in am and 1000 at HS Tumeric some benefit. Therapy Status Data Form Past Medical History: PAST MEDICAL HISTORY Diagnosis Date Acute myocardial infarction of lateral wall (HCC) 2012 s/p LAD stent Aortic valve stenosis Atrophy of left kidney Benign neoplasm of colon Benign neoplasm of meninges (HCC) 08/02/2020 Bursitis CAD (coronary artery disease) Chronic kidney disease External hemorrhoids Hammertoe of right foot Hyperlipidemia Hypokalemia Irregular heart rhythm Lipoma Meningioma (HCC) Mitral valve prolapse Neuroma MELL on CPAP Seizure (HCC) focal motor Past Surgical History: PAST SURGICAL HISTORY Procedure Laterality Date COLONOSCOPY FLX DX W/COLLJ SPEC WHEN PFRMD 10/29/2009 Colonoscopy COLONOSCOPY FLX DX W/COLLJ SPEC WHEN PFRMD 2016 HEMORRHOID;BAND LIGAT, SNGL/MUL 12/2016 MRI 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 PAST SURGICAL HISTORY OF Left 04/2017 left knee arthroscopy - meniscus PAST SURGICAL HISTORY OF 01/2013 PTCA x 1 - LAD PT ED HEART AND VASCULAR 2012 coronary angioplasty graft and stent Family History: FAMILY HISTORY Problem Relation Age of Onset Colon Cancer Mother ascending large intestine removed 2008 at 80 years old Prostate Cancer Brother Colon Cancer Maternal Grandmother portion lower colon removed 60 years old, colostomy Social History Tobacco Use Smoking status: Never Smokeless tobacco: Never Vaping Use Vaping status: Never Used Substance Use Topics Alcohol use: No Drug use: No Allergies: Atorvastatin Current Outpatient Medications on File Prior to Visit Medication Sig levETIRAcetam (KEPPRA) 500 mg tablet Take 2 tablets by mouth twice daily. midazolam (NAYZILAM) 5 mg/spray (0.1 mL) nasal spray Use 1 spray in one nostril as needed for seizures. May repeat dose in alternate nostril after 10 minutes based on response and tolerability. Only take for seizures lasting more than 3 minutes or more than 3 seizures in an hour clonazePAM orally disintegrating (KLONOPIN WAFER) 1 mg disintegrating tablet Dissolve 1 tablet under the tongue three times daily as needed (seizures) for up to 30 days. lacosamide (VIMPAT) 100 mg tab Take 200 Mg BID sildenafil (VIAGRA) 100 mg tablet Take 1 pill 1 hour prior to sexual activity on empty stomach dexAMETHasone (DECADRON) 2 mg tablet 2 mg the day prior to the flight, the day of the flight and the day after the flight. CPAP Initiate Auto PAP @ 5-20 cm of water with humidification. Mask (per patient preference) optional chin strap (if indicated) , filters, tubing, humidifier and lifetime supplies. rosuvastatin (CRESTOR) 40 mg tablet Take 40 mg by mouth. Multivitamin capsule Take 1 capsule by mouth once daily. aspirin(ADULT LOW DOSE ASPIRIN 81 MG TAB, DELAYED RELEASE) Take one(1) tablet daily. No current facility-administered medications on file prior to visit. Review of systems: SEE ABOVE Constitutional: No recent fever or weight loss. Eyes: No history of glaucoma or cataracts. ENMT: No recent ear infection, nasal congestion, mouth sores or sore throat. See HPI CV: No history of chest pain, palpitations Right leg swelling, SEE HPI Respiratory: No history of SOB, asthma or recent cough. Gastrointestinal: No history of nausea, vomiting, dysphagia or abdominal pain. Genitourinary: No history of hematuria or dysuria. Musculoskeletal: No complaint of arthritis Has Right leg weakness, see HPI. Psychiatric: No history of hallucinations He feels somewhat anxious and also down emotionally as his neurological disability is affecting his QOL. ROS Neurological: SEE HPI No complaint of headache. Complaint of tinnitus, bilateral . No complaint of decreased hearing. No complaint of diplopia. No complaints of decreased visual acuity. Complaint of RT arm/leg numbness. Problem with RT limb coordination. No complaint of syncope Complaint of seizures, see HPI No loss of consciousness. Objective There were no vitals taken for this visit. This is a virtual exam based on observational as below: No vital signs. NEURO: on observation, CN II-XII intact, no pronator drift, no tremor noted, self reported and/or on observation moves extremities equally, no self-reported sensory deficits and ambulating without difficulty. Karnofsky performance status: 90 - Able to carry on normal activity, minor signs or symptoms of disease. ECOG performance status: 1 - Restricted in physically strenuous activity but ambulatory and able to carry out work of a light or sedentary nature, e.g., light house work or office work. 10/31/2023 PHQ 2 and 9 Total Scores PHQ-2 Score 0 Labs: Latest Ref Rng & Units 03/29/2023 12/07/2023 05/30/2024 CBC WBC 3.70 - 11.00 k/uL 8.00 5.23 3.78 RBC 4.20 - 6.00 m/uL 4.57 4.50 5.11 Hemoglobin 13.0 - 17.0 g/dL 14.6 14.1 16.1 Hematocrit 39.0 - 51.0 % 41.5 40.4 45.6 MCV 80.0 - 100.0 fL 90.8 89.8 89.2 MCH 26.0 - 34.0 pg 31.9 31.3 31.5 MCHC 30.5 - 36.0 g/dL 35.2 34.9 35.3 RDW-CV 11.5 - 15.0 % 11.7 11.8 11.8 Platelet Count 150 - 400 k/uL 178 176 153 MPV 9.0 - 12.7 fL 8.6 8.2 8.6 Baso% % 0.3 0.2 0.3 Abs Neut (ANC) 1.45 - 7.50 k/uL 6.30 3.42 2.32 Abs Lymph 1.00 - 4.00 k/uL 0.92 1.05 1.00 Abs Vinton <0.87 k/uL 0.70 0.67 0.37 Abs Eosin <0.46 k/uL 0.04 0.06 0.06 Abs Baso <0.11 k/uL <0.03 <0.03 <0.03 NRBC /100 WBC 0.0 0.0 0.0 Latest Ref Rng & Units 12/07/2023 05/30/2024 09/01/2024 CMP Sodium 136 - 144 mmol/L 134 139 Potassium 3.7 - 5.1 mmol/L 4.4 4.2 Chloride 98 - 107 mmol/L 100 102 CO2 22 - 30 mmol/L 29 27 Glucose 74 - 99 mg/dL 100 93 BUN 9 - 24 mg/dL 20 20 Creatinine 0.73 - 1.22 mg/dL 0.98 1.04 EGFR >=60 mL/min/1.73m 86 79 Protein, Total 6.3 - 8.0 g/dL 6.4 6.7 6.4 Albumin 3.9 - 4.9 g/dL 4.3 4.3 4.2 Calcium 8.5 - 10.2 mg/dL 8.9 9.5 Bilirubin, Total 0.2 - 1.3 mg/dL 0.7 0.6 0.4 AST 14 - 40 U/L 17 59 16 ALT 10 - 54 U/L 16 29 15 Alkaline Phosphatase 38 - 113 U/L 67 75 64 Final Pathology: N/A PATIENT HAS NOT HAD A BIOPSY/SURGERY OF HIS BRAIN TUMOR. Imaging: Results MRI BRAIN WO/W IVCON ([facility]#[id number] [facility]) (Order [id number]) Patient Info Patient Name Sex Watson Rose ([id number]) Male 1960 09/01/2024 11:43 AM - Radiology, [place] In Impression IMPRESSION: Unchanged appearance of vertex meningioma with mass effect on the left greater than right paracentral lobules. Paper Goods Machine Operator: NICOL Transcribe Date/Time: Sep 01 2024 11:25A Dictated by : GAB GODDARD MD This examination was interpreted and the report reviewed and electronically signed by: GAB GODDARD MD on Sep 01 2024 11:41AM EST I reviewed the MRI results with Mr. Rodriguez. Assessment & Plan Mr. Watson Rodriguez is a 64-year-old male who back on April 2020, was investigated for right leg numbness and weakness (couldn't stand on it). Work up for lumbar spine cause non conclusive. He had an episode of seizure and MRI brain showed left parasagittal dural based lesion 4.9 x3.5x4.2 cm with small nodule extending to right side. His right leg still numb and weak. Initially he had high step gait to avoid dragging his right lower extremity, but over time it has improved. He had GK-SRS to the tumor (25Gy/5fx) from 08/16/2020-08/20/[address] Sutton from Neurosurgery and Dr. Aviles Radiation Oncology. Mr. 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 He tolerated his treatments well. No side effects. His overall symptoms improved including his QOL. However, he still has persistent, right foot discomfort, a burning paresthesia. The etiology is likely from the brain tumor, as work up has failed to show a focal issue, and in fact his initial symptom was a right lower extremity discomfort/weakness. PLAN: 1-Meningioma (radiological diagnosis), S/P SRS-Gamma Knife: -Plan for brain MR w and w/o and perfusion for 12 months time. 2-Return visit: 1-2 days after the MRI 3-Seizures: Continue Levetiracetam (Keppra). -Current LEV dose, 750 mg in am and 1000 mg at HS. -Off lacosamide (Vimpat) since 01/29/23. He is aware that he could have seizures, so he is taking all precautions, including to use his rescue medications, clonazepam, however when he uses it, seldomly he says, average twice to 4 times a month, he feels quite sleepy afterwards. He is to avoids engaging in activities that require his full alertness, until he is back to base line of alertness. -Levetiracetam levels Latest Reference Range & Units 03/29/23 14:13 Levetiracetam 12.0 - 46.0 ug/mL 21.5 Discussed the following to improve paresthesias, presumably focal; seizures: -Increase the dose of LEV, but he is reluctant to higher dose, due to having more pain on LEV 1000 mg BID. 4-Rescue medications for breakthrough seizures using either midazolam nasal spray. Or clonazepam sublingual. Not to use both agents on the same day, can use either one in a 24-hour period. I discussed with the patient the potential benefits and side effects of this medications and he knows when and how to use them. 5-Paresthesias of the right leg/foot. Etiology not fully defined, possibly focal seizures. He is still having right foot toes paresthesias/with occasional flexion of toes, that is painful. He was recommended acupuncture and may try this. I discussed about Botox injections, for which he will need a referral, to neuromuscular clinic. He was not interested. I discussed the increase dose of LEV to 1000 mg BID but wishes sot stay on the current dose, as a higher dose he felt that to caused right foot pain. 6-Driving a motor vehicle: He is driving a car now. 7-Follow-up with Dr. Sutton his neurosurgeon. 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 Sutton, Neurosurgery, and Dr. Aviles, Radiation Oncology He had tried Tentral and Vit E, with unclear benefit. Now off it for awhile (months) Not on steroids. Under my care he had 4/4 of his bevacizumab (mami) infusions every 3 weeks, which he completed on May 01, 2022, with benefit, see above. -He is still having symptoms, likely from the tumor/peritumoral edema: paresthesias. Other option discussed (09/03/2024) He mentioned about agenst he learned that are antiimflamatory, and that may help his paresthesias, assuming are coming form the peritumorla edema. and asked whether this is in use in his situation -Agents he mentioned: -somali skullcap -Capsaicin He has been on lipoic acid provided by his neurologist: no significant help. I discussed options for cerebral edema to include: -Boswelia -Hyperbaric chanbetr -09/03/2024: I will ask Dr. Aviles his opinion on other strategies to help his cerebral edema. i..e., Boswellia. 9-Follow with his primary physician Dr. Whittington. 10-Follow up with scada technician Dr. Claudio Parks for cardiology care. 11-Follow up with Dr. Joe Santos, for nephology care, as patient has one functional kidney. 12. Follow with Dr. Carrillo, from podiatry. 13-Question about whether hs right foot issue is of vascular in origin. He says his PCP, has done work up and feel there is no vascular pathology. I offered order an MRV/Vascular MR to exclude vascular pathology but he declined. He feels that the vascular question has been answered and ruled out and wishes not to proceed with more test for that. PLAN: -Meningioma (radiological diagnosis), S/P SRS-Gamma Knife: -Plan for brain MR w and w/o and perfusion for 12 months time. -Return visit: 1-2 days after the MRI At the end, Mr. Rodriguez and his NARCISA Ocampo, verbalized understanding, and agreement with above recommendations and had no further questions or concerns for the moment. I encourage him to call me at my office if he has any questions about the above plan. I spent a total of 60 minutes which included preparing to see the patient, egan-ad-avyl patient care, additional 15 minutes to completing clinical documentation, obtaining and/or reviewing separately obtained history, performing a medically appropriate examination, counseling and educating the patient/family/caregiver, ordering medications, tests, or procedures, communicating with other HCPs (not separately reported), independently interpreting results (not separately reported), communicating results to the patient/family/caregiver, and care coordination (not separately reported). Yancy Centeno MD Staff Neuro-Oncologist [facility] CC: -Dr. Trev Sutton, Neurosurgery, [facility] -CC-Pipo Aviles MD, Radiation Oncology, [facility], [facility], [facility], [facility] -Joe Santos MD, Nephrology, [facility] Claudio Parks MD, Cardiology, [address], [address], [place] [address], PHONE: -Dr. Catarino Camacho, Epilepsy, [facility] -JORGE Alvarez, PCP, [address] [id number], ; Surveillance MRI Brain Left parasagittal meningioma, s/p GKRS: 08/16/2020-08/20/2020 (25Gy/5fx) Received Avastin 7.5mg/q3 weeks 08/15- completed 05/01/22 MRI Brain w/wo contrast 09/01/24 documented in this encounter [facility] 09-03-2024 Note HNO ID: [id number] Author: FLORENCIA GARRETT RN Service: ? Author Type: Registered Nurse Type: Progress Notes Filed: 09/03/2024 12:51 Note Text: Surveillance MRI Brain Left parasagittal meningioma, s/p GKRS: 08/16/2020-08/20/2020 (25Gy/5fx) Received Avastin 7.5mg/q3 weeks 08/15- completed 05/01/22 MRI Brain w/wo contrast 09/01/[address] [facility] 09-01-2024 History of Presen t illness Narrative Radiology Service Progress Note DATE OF SERVICE: September 01, 2024 TIME: 9:58 AM PATIENT IDENTITY VERIFICATION COMPLETED USING TWO (2) STANDARD IDENTIFIERS: Name and Date of confirmed by patient verbally. FALL SCREENING: Has the patient had 2 falls in the last year or 1 fall with injury or currently using an Ambulatory Assistive Device (Walker, Cane, Wheelchair, Crutches, etc.)? No PATIENT GENDER DATA: Assigned male at PATIENT RELEVANT IMPLANT DATA REVIEWED: Yes PATIENT PRESENTS WITH AN IMPLANTABLE OR ATTACHED CLINICAL ASSISTANT PROFESSOR: No ALLERGIES: Reviewed and unchanged CONTRAST ALLERGY: NO. EXAM: MRI - CONTRAST TYPE: GROUP II PERIPHERAL IV DATA: Ambulatory: A peripheral IV was started in the Left antecubital site with a Angio cath: 22 gauge. RADIOLOGY DEPARTMENT: MR; Exam(s) Completed: Head: Routine Brain SIGNATURE: RT Raman(R) PATIENT NAME: Watson Rodriguez DATE: September 01, 2024 TIME: 9:58 AM documented in this encounter [facility] 09-01-2024 Note HNO ID: [id number] Author: LUKE MUSTAFA RT(R) Service: ? Author Type: Technologist Type: Progress Notes Filed: 09/01/2024 09:58 Note Text: Radiology Service Progress Note DATE OF SERVICE: September 01, 2024 TIME: 9:58 AM PATIENT IDENTITY VERIFICATION COMPLETED USING TWO (2) STANDARD IDENTIFIERS: Name and Date of confirmed by patient verbally. FALL SCREENING: Has the patient had 2 falls in the last year or 1 fall with injury or currently using an Ambulatory Assistive Device (Walker, Cane, Wheelchair, Crutches, etc.)? No PATIENT GENDER DATA: Assigned male at PATIENT RELEVANT IMPLANT DATA REVIEWED: Yes PATIENT PRESENTS WITH AN IMPLANTABLE OR ATTACHED CLINICAL ASSISTANT PROFESSOR: No ALLERGIES: Reviewed and unchanged CONTRAST ALLERGY: NO. EXAM: MRI - CONTRAST TYPE: GROUP II PERIPHERAL IV DATA: Ambulatory: A peripheral IV was started in the Left antecubital site with a Angio cath: 22 gauge. RADIOLOGY DEPARTMENT: MR; Exam(s) Completed: Head: Routine Brain SIGNATURE: Luke Lizamadorota Mustafa, RT(R) PATIENT NAME: Watson Rodriguez DATE: September 01, 2024 TIME: 9:[address] [facility] 06-22-2024 Telephone encounter Note FOLLOW UP ENDOSCOPY - RESULTS AND RECOMMENDATIONS NAME: Watson Rodriguez [facility] NO.: [id number] : 1960 DATE: June 22, 2024 PRIMARY CARE PROVIDER: Breanne Whittington MD Watson Rodriguez is a patient referred for follow-up/surveillance colonoscopy after Dr. Peterson had removed a large cecal polyp 6 months previously. I performed lower endoscopy on June 09, 2024. The patient was found to have: Lower Endoscopy Impression: - Three small (4-6 mm) polyps in the transverse colon and in the cecum, removed with a cold snare. Resected and retrieved. Clips (MR conditional) were placed. 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 - Diverticulosis in the sigmoid colon. - The examination was otherwise normal on direct and retroflexion views. Pathology demonstrated: FINAL DIAGNOSIS A. Cecum polyp, biopsy: - Multiple superficial fragments of villous adenoma, negative for high-grade dysplasia. B. Proximal transverse colon polyp x 2, biopsy: - Multiple fragments of tubular adenoma. IMPRESSION: Small residual polyp noted at the area of cecal sessile polyp removed in the past which returned as villous adenoma, smaller tubular adenomas in the transverse colon PLAN: INSTRUCTIONS FOLLOWING A POLYP FOUND AT COLONOSCOPY You were found to have an adenomatous colon polyp. I recommend you undergo repeat endoscopy in 2 years. If you note bleeding, change in bowel habits, or other suspicious colon related symptoms before that time, those symptoms should be evaluated as necessary. If you have any difficulties or concerns, you should contact our office immediately. The patient is instructed to follow-up with your primary care provider I have instructed my staff to forward the above information to the patient and to the appropriate providers [facility] Work Phone: 06-22-2024 Miscellaneous Notes FOLLOW UP ENDOSCOPY - RESULTS AND RECOMMENDATIONS NAME: Watson Rodriguez [facility] NO.: [id number] : 1960 DATE: June 22, 2024 PRIMARY CARE PROVIDER: Breanne Whittington MD Watson Rodriguez is a patient referred for follow-up/surveillance colonoscopy after Dr. Peterson had removed a large cecal polyp 6 months previously. I performed lower endoscopy on June 09, 2024. The patient was found to have: Lower Endoscopy Impression: - Three small (4-6 mm) polyps in the transverse colon and in the cecum, removed with a cold snare. Resected and retrieved. Clips (MR conditional) were placed. 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 - Diverticulosis in the sigmoid colon. - The examination was otherwise normal on direct and retroflexion views. Pathology demonstrated: FINAL DIAGNOSIS A. Cecum polyp, biopsy: - Multiple superficial fragments of villous adenoma, negative for high-grade dysplasia. B. Proximal transverse colon polyp x 2, biopsy: - Multiple fragments of tubular adenoma. IMPRESSION: Small residual polyp noted at the area of cecal sessile polyp removed in the past which returned as villous adenoma, smaller tubular adenomas in the transverse colon PLAN: INSTRUCTIONS FOLLOWING A POLYP FOUND AT COLONOSCOPY You were found to have an adenomatous colon polyp. I recommend you undergo repeat endoscopy in 2 years. If you note bleeding, change in bowel habits, or other suspicious colon related symptoms before that time, those symptoms should be evaluated as necessary. If you have any difficulties or concerns, you should contact our office immediately. The patient is instructed to follow-up with your primary care provider I have instructed my staff to forward the above information to the patient and to the appropriate providers documented in this encounter [facility] 06-19-2024 Telephone encounter Note Please advise regarding My chart request for colonoscopy results. Thank you. [facility] 06-19-2024 Miscellaneous Notes Please advise regarding My chart request for colonoscopy results. Thank you. documented in this encounter [facility] 06-09-2024 Attending History and physical note UPDATED PROCEDURAL SEDATION HISTORY AND PHYSICAL EXAMINATION SERVICE DATE: 06/09/2024 SERVICE TIME: 11:07 AM PHYSICAL EXAM MUST BE COMPLETED ON ADMISSION PROCEDURE: Procedure Indications: The History and Physical (completed in the past 30 days) has been reviewed and the patient has been examined. The contents accurately reflect the patient's condition with the following additions or revisions since the H&P was completed. ASA Class: ASA Class: Patient with mild systemic disease Examination indicates no changes. AIRWAY: Airway Visualization of Uvula: Yes Mouth opening greater than 2 fingerbreadths: Yes LUNGS: Lungs clear to auscultation CARDIAC: Regular rhythm,Regular rate Provisional Diagnosis/Treatment Plan: follow up sessile cecal polyp - colonoscopy Sedation Goal: Moderate This H&P can be found in the attached. SIGNATURE: Orquidea Ley MD PATIENT NAME: Watson Rodriguez DATE: June 09, 2024 TIME: 11:07 AM Source Note - Orquidea Ley MD - 06/09/2024 11:45 AM EST HISTORY AND PHYSICAL Watson Rodriguez 1960 REFERRING PHYSICIAN: Fouzia Amado A* CHIEF COMPLAINT: Consult (Screening for colon cancer) HPI: The patient is a 63 year old male referred for endoscopy. Watson notes no current colon complaints The patient notes no history of upper GI complaints. Watson has undergone prior endoscopy. He underwent colonoscopy for by Dr. Gian Peterson last year and was found to have a slightly incomplete prep but found to have a 25 mm polyp in the cecum that was removed in piecemeal fashion. He had had polyps removed previously in 2016 and a polyp removed by Dr. Al in 2009. His mother and maternal grandmother both had colon cancer. He has 4 children. The patient is being seen by me today at the request of Dr. Breanne Whittington MD for my opinion and advice regarding family history of colon cancer with follow-up for a larger polyp removed in piecemeal fashion. PAST MEDICAL HISTORY PAST MEDICAL HISTORY Diagnosis Date Acute myocardial infarction of lateral wall (HCC) 2012 s/p LAD stent Aortic valve stenosis Atrophy of left kidney Benign neoplasm of colon Benign neoplasm of meninges (HCC) 08/02/2020 Bursitis CAD (coronary artery disease) Chronic kidney disease External hemorrhoids Hammertoe of right foot Hyperlipidemia Hypokalemia Irregular heart rhythm Lipoma Meningioma (HCC) Mitral valve prolapse Neuroma MELL on CPAP Seizure (HCC) focal motor PAST SURGICAL HISTORY PAST SURGICAL HISTORY Procedure Laterality Date COLONOSCOPY FLX DX W/COLLJ SPEC WHEN PFRMD 10/29/2009 Colonoscopy COLONOSCOPY FLX DX W/COLLJ SPEC WHEN PFRMD 2016 HEMORRHOID;BAND LIGAT, SNGL/MUL 12/2016 MRI 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 CPAP/BIPAP/OTHER Type .CPAPSettings into a note to see current settings/supplies/DME information. clonazePAM orally disintegrating (KLONOPIN WAFER) 1 mg disintegrating tablet DISSOLVE 1 TABLET IN MOUTH THREE TIMES DAILY NEEDED (SEIZURES) FOR UP TO 30 DAYS sildenafil (VIAGRA) 100 mg tablet Take 1 pill 1 hour prior to sexual activity on empty stomach CPAP/BIPAP/OTHER MASK REFITTING. Continue Auto CPAP with current settings of 5-20 cm H2O. Lifetime supplies for Auto CPAP, including patient preferred mask, head gear, heated tubing, humidity, filters, chin strap. Dx: Obstructive Sleep Apnea G47.33 DME: [facility] ph [phone] fax# [phone] Fax download reports to [phone]. levETIRAcetam (KEPPRA) 500 mg tablet Take 2 tablets by mouth two times a day. dexAMETHasone (DECADRON) 2 mg tablet 2 mg the day prior to the flight, the day of the flight and the day after the flight. CPAP Initiate Auto PAP @ 5-20 cm of water with humidification. Mask (per patient preference) optional chin strap (if indicated) , filters, tubing, humidifier and lifetime supplies. rosuvastatin (CRESTOR) 40 mg tablet Take 40 mg by mouth. Multivitamin capsule Take 1 capsule by mouth once daily. aspirin(ADULT LOW DOSE ASPIRIN 81 MG TAB, DELAYED RELEASE) Take one(1) tablet daily. peg 3350-Electrolytes (GOLYTELY) 236-22.74-6.74 -5.86 gram suspension Take 4,000 mL by mouth one time only for 1 dose. Refer to printed prep instructions from your provider. No current facility-administered medications for this visit. ALLERGIES: Atorvastatin PERSONAL HISTORY: SOCIAL HISTORY Social History Tobacco Use Smoking status: Never Smokeless tobacco: Never Vaping Use Vaping Use: Never used Substance Use Topics Alcohol use: No Drug use: No FAMILY HISTORY: FAMILY HISTORY FAMILY HISTORY Problem Relation Age of Onset Colon Cancer Mother ascending large intestine removed 2008 at 80 years old Prostate Cancer Brother Colon Cancer Maternal Grandmother portion lower colon removed 60 years old, colostomy REVIEW OF SYMPTOMS: The review of systems data was entered by the nurse and reviewed by hi Nursing Notes: Milady Velasco LPN 12/07/2023 10:39 AM Signed REVIEW OF SYSTEMS: General: The patient denies fatigue, denies weight loss, denies weight gain, denies feeling hot, and denies feelings of cold. Eyes: The patient denies glaucoma, denies eye injury/surgery, wears glasses or contacts. Ear/Nose/Throat: The patient NOTES allergies, denies hayfever, denies ear infections, and denies bloody noses. Cardiovascular: The patient NOTES chest pain, NOTES heart disease, denies high blood pressure,NOTES cardiac stent, NOTES prior heart attack, NOTES irregular heart beat, NOTES high cholesterol, denies poor circulation, denies heart failure, other cardiac issues, denies claudication, denies cold feet, denies peripheral arterial stent. Respiratory: The patient denies tuberculosis, denies pneumonia, denies frequent cough, denies pulmonary embolism, denies shortness of breath, and denies coughing up blood. Gastrointestinal: The patient denies difficulty swallowing, denies acid reflux, denies ulcers, denies vomiting, denies jaundice/hepatitis, denies gallbladder problems, denies black or tarry stools, NOTES hemorrhoids, denies bleeding from rectum, denies diverticulitis, denies constipation, denies diarrhea, denies loss of stool control, and denies hernias. Kidney/Bladder: The patient NOTES kidney stones, NOTES urine infections, and NOTES bloody urine. Skin: The patient denies a history of skin cancer, denies bleeding/changing moles, and denies a history of skin rash. Neurologic: The patient NOTES a history of epilepsy/convulsions, denies headaches, denies head/spinal injuries, and denies stroke/TIA. Psychiatric: The patient denies psychiatric medications, denies depression, and denies voices, denies substance abuse. Endocrine: The patient denies thyroid disorders, denies diabetes, and denies hormonal problems. Hematologic: The patient denies a history of bruising, denies bleeding, and denies anemia, denies blood clots. Infections: The patient denies a history of measles and mumps, denies rheumatic fever, and denies sexually transmitted diseases. Musculoskeletal: The patient denies back pain/injury, denies back problems, denies sciatica, denies knee/foot trouble, denies arthritis, or denies gout. When was patient's last Mammogram screening? N/A Last Colonoscopy: 2022 Milady Velasco LPN PHYSICAL EXAMINATION: General: The patient is 63 year old male, well nourished, well hydrated in no acute distress. The patient is oriented to time, place, and person. VITALS: Blood pressure 128/76, pulse 61, temperature 36.8 C (98.2 F), height 180.3 cm (5' 11), weight 85.3 kg (188 lb), SpO2 97%. Body mass index is 26.22 kg/m . HEENT: Normal cephalic, ataumatic, pupils are equally round, sclera are anicteric, mucous membranes are moist, oropharynx is clear. Neck has no masses, asymmetry or lymphadenopathy. Thyroid is unremarkable. Respiratory: Clear to auscultation and percussion. Normal respiratory excursion and pattern. Cardiac: Examination is regular rate and rhythm. Abdominal exam: Soft, nontender, with no palpable masses. No hepatosplenomegaly. No palpable hernias. Rectal exam: exam deferred Extremities: no clubbing, cyanosis or edema. No adenopathy. Other: LABORATORY VALUES: As Noted RADIOLOGIC STUDIES: As Noted Assessment IMPRESSION: Family history of colon cancer, large cecal polyp reviewed piecemeal fashion PLAN: I plan to perform lower endoscopy. We discussed the risks and benefits of the planned endoscopy. I have informed the patient that complications can occur including failure to complete the endoscopy and perforation. The patient had the opportunity to ask questions concerning the planned endoscopy. My staff has also explained the procedure to the patient in understandable terms and has given the patient printed material concerning the procedure. The patient freely consents to surgery. I plan to use golytely bowel preparation for endoscopy I plan for monitored anesthetic care. Given his family history I would refer to genetic counseling for consideration of genetic testing. Diagnoses: (Z80.0) Family history of colon cancer in mother (primary encounter diagnosis) (Z86.010) History of colonic polyps My findings have been communicated to Dr. Breanne Whittington MD via shared medical record. This note will be forwarded to Dr. Breanne Whittington MD. Return to Clinic: The patient is instructed to follow-up with me after the testing has been completed. Orquidea Ley MD [facility] Work Phone: 06-09-2024 History and physical note HISTORY AND PHYSICAL Watson Rodriguez 1960 REFERRING PHYSICIAN: Fouzia Amado A* CHIEF COMPLAINT: Consult (Screening for colon cancer) HPI: The patient is a 63 year old male referred for endoscopy. Watson notes no current colon complaints The patient notes no history of upper GI complaints. Watson has undergone prior endoscopy. He underwent colonoscopy for by Dr. Gian Peterson last year and was found to have a slightly incomplete prep but found to have a 25 mm polyp in the cecum that was removed in piecemeal fashion. He had had polyps removed previously in 2016 and a polyp removed by Dr. Al in 2009. His mother and maternal grandmother both had colon cancer. He has 4 children. The patient is being seen by me today at the request of Dr. Breanne Whittington MD for my opinion and advice regarding family history of colon cancer with follow-up for a larger polyp removed in piecemeal fashion. PAST MEDICAL HISTORY PAST MEDICAL HISTORY Diagnosis Date Acute myocardial infarction of lateral wall (HCC) 2012 s/p LAD stent Aortic valve stenosis Atrophy of left kidney Benign neoplasm of colon Benign neoplasm of meninges (HCC) 08/02/2020 Bursitis CAD (coronary artery disease) Chronic kidney disease External hemorrhoids Hammertoe of right foot Hyperlipidemia Hypokalemia Irregular heart rhythm Lipoma Meningioma (HCC) Mitral valve prolapse Neuroma MELL on CPAP Seizure (HCC) focal motor PAST SURGICAL HISTORY PAST SURGICAL HISTORY Procedure Laterality Date COLONOSCOPY FLX DX W/COLLJ SPEC WHEN PFRMD 10/29/2009 Colonoscopy COLONOSCOPY FLX DX W/COLLJ SPEC WHEN PFRMD 2016 HEMORRHOID;BAND LIGAT, SNGL/MUL 12/2016 MRI 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 CPAP/BIPAP/OTHER Type .CPAPSettings into a note to see current settings/supplies/DME information. clonazePAM orally disintegrating (KLONOPIN WAFER) 1 mg disintegrating tablet DISSOLVE 1 TABLET IN MOUTH THREE TIMES DAILY NEEDED (SEIZURES) FOR UP TO 30 DAYS sildenafil (VIAGRA) 100 mg tablet Take 1 pill 1 hour prior to sexual activity on empty stomach CPAP/BIPAP/OTHER MASK REFITTING. Continue Auto CPAP with current settings of 5-20 cm H2O. Lifetime supplies for Auto CPAP, including patient preferred mask, head gear, heated tubing, humidity, filters, chin strap. Dx: Obstructive Sleep Apnea G47.33 DME: [employer] ph [phone] fax# [phone] Fax download reports to [phone]. levETIRAcetam (KEPPRA) 500 mg tablet Take 2 tablets by mouth two times a day. dexAMETHasone (DECADRON) 2 mg tablet 2 mg the day prior to the flight, the day of the flight and the day after the flight. CPAP Initiate Auto PAP @ 5-20 cm of water with humidification. Mask (per patient preference) optional chin strap (if indicated) , filters, tubing, humidifier and lifetime supplies. rosuvastatin (CRESTOR) 40 mg tablet Take 40 mg by mouth. Multivitamin capsule Take 1 capsule by mouth once daily. aspirin(ADULT LOW DOSE ASPIRIN 81 MG TAB, DELAYED RELEASE) Take one(1) tablet daily. peg 3350-Electrolytes (GOLYTELY) 236-22.74-6.74 -5.86 gram suspension Take 4,000 mL by mouth one time only for 1 dose. Refer to printed prep instructions from your provider. No current facility-administered medications for this visit. ALLERGIES: Atorvastatin PERSONAL HISTORY: SOCIAL HISTORY Social History Tobacco Use Smoking status: Never Smokeless tobacco: Never Vaping Use Vaping Use: Never used Substance Use Topics Alcohol use: No Drug use: No FAMILY HISTORY: FAMILY HISTORY FAMILY HISTORY Problem Relation Age of Onset Colon Cancer Mother ascending large intestine removed 2008 at 80 years old Prostate Cancer Brother Colon Cancer Maternal Grandmother portion lower colon removed 60 years old, colostomy REVIEW OF SYMPTOMS: The review of systems data was entered by the nurse and reviewed by hi Nursing Notes: Milady Velasco LPN 12/07/2023 10:39 AM Signed REVIEW OF SYSTEMS: General: The patient denies fatigue, denies weight loss, denies weight gain, denies feeling hot, and denies feelings of cold. Eyes: The patient denies glaucoma, denies eye injury/surgery, wears glasses or contacts. Ear/Nose/Throat: The patient NOTES allergies, denies hayfever, denies ear infections, and denies bloody noses. Cardiovascular: The patient NOTES chest pain, NOTES heart disease, denies high blood pressure,NOTES cardiac stent, NOTES prior heart attack, NOTES irregular heart beat, NOTES high cholesterol, denies poor circulation, denies heart failure, other cardiac issues, denies claudication, denies cold feet, denies peripheral arterial stent. Respiratory: The patient denies tuberculosis, denies pneumonia, denies frequent cough, denies pulmonary embolism, denies shortness of breath, and denies coughing up blood. Gastrointestinal: The patient denies difficulty swallowing, denies acid reflux, denies ulcers, denies vomiting, denies jaundice/hepatitis, denies gallbladder problems, denies black or tarry stools, NOTES hemorrhoids, denies bleeding from rectum, denies diverticulitis, denies constipation, denies diarrhea, denies loss of stool control, and denies hernias. Kidney/Bladder: The patient NOTES kidney stones, NOTES urine infections, and NOTES bloody urine. Skin: The patient denies a history of skin cancer, denies bleeding/changing moles, and denies a history of skin rash. Neurologic: The patient NOTES a history of epilepsy/convulsions, denies headaches, denies head/spinal injuries, and denies stroke/TIA. Psychiatric: The patient denies psychiatric medications, denies depression, and denies voices, denies substance abuse. Endocrine: The patient denies thyroid disorders, denies diabetes, and denies hormonal problems. Hematologic: The patient denies a history of bruising, denies bleeding, and denies anemia, denies blood clots. Infections: The patient denies a history of measles and mumps, denies rheumatic fever, and denies sexually transmitted diseases. Musculoskeletal: The patient denies back pain/injury, denies back problems, denies sciatica, denies knee/foot trouble, denies arthritis, or denies gout. When was patient's last Mammogram screening? N/A Last Colonoscopy: 2022 Milady Velasco LPN PHYSICAL EXAMINATION: General: The patient is 63 year old male, well nourished, well hydrated in no acute distress. The patient is oriented to time, place, and person. VITALS: Blood pressure 128/76, pulse 61, temperature 36.8 C (98.2 F), height 180.3 cm (5' 11), weight 85.3 kg (188 lb), SpO2 97%. Body mass index is 26.22 kg/m . HEENT: Normal cephalic, ataumatic, pupils are equally round, sclera are anicteric, mucous membranes are moist, oropharynx is clear. Neck has no masses, asymmetry or lymphadenopathy. Thyroid is unremarkable. Respiratory: Clear to auscultation and percussion. Normal respiratory excursion and pattern. Cardiac: Examination is regular rate and rhythm. Abdominal exam: Soft, nontender, with no palpable masses. No hepatosplenomegaly. No palpable hernias. Rectal exam: exam deferred Extremities: no clubbing, cyanosis or edema. No adenopathy. Other: LABORATORY VALUES: As Noted RADIOLOGIC STUDIES: As Noted Assessment IMPRESSION: Family history of colon cancer, large cecal polyp reviewed piecemeal fashion PLAN: I plan to perform lower endoscopy. We discussed the risks and benefits of the planned endoscopy. I have informed the patient that complications can occur including failure to complete the endoscopy and perforation. The patient had the opportunity to ask questions concerning the planned endoscopy. My staff has also explained the procedure to the patient in understandable terms and has given the patient printed material concerning the procedure. The patient freely consents to surgery. I plan to use golytely bowel preparation for endoscopy I plan for monitored anesthetic care. Given his family history I would refer to genetic counseling for consideration of genetic testing. Diagnoses: (Z80.0) Family history of colon cancer in mother (primary encounter diagnosis) (Z86.010) History of colonic polyps My findings have been communicated to Dr. Breanne Whittington MD via shared medical record. This note will be forwarded to Dr. Breanne Whittington MD. Return to Clinic: The patient is instructed to follow-up with me after the testing has been completed. Orquidea Ley MD [facility] 06-09-2024 History and physical note UPDATED PROCEDURAL SEDATION HISTORY AND PHYSICAL EXAMINATION SERVICE DATE: 06/09/2024 SERVICE TIME: 11:07 AM PHYSICAL EXAM MUST BE COMPLETED ON ADMISSION PROCEDURE: Procedure Indications: The History and Physical (completed in the past 30 days) has been reviewed and the patient has been examined. The contents accurately reflect the patient's condition with the following additions or revisions since the H&P was completed. ASA Class: ASA Class: Patient with mild systemic disease Examination indicates no changes. AIRWAY: Airway Visualization of Uvula: Yes Mouth opening greater than 2 fingerbreadths: Yes LUNGS: Lungs clear to auscultation CARDIAC: Regular rhythm,Regular rate Provisional Diagnosis/Treatment Plan: follow up sessile cecal polyp - colonoscopy Sedation Goal: Moderate This H&P can be found in the attached. SIGNATURE: Orquidea Ley MD PATIENT NAME: Watson Rodriguez DATE: June 09, 2024 TIME: 11:07 AM Source Note - Orquidea Ley MD - 06/09/2024 11:45 AM EST HISTORY AND PHYSICAL Watson Rodriguez 1960 REFERRING PHYSICIAN: Fouzia Amado A* CHIEF COMPLAINT: Consult (Screening for colon cancer) HPI: The patient is a 63 year old male referred for endoscopy. Watson notes no current colon complaints The patient notes no history of upper GI complaints. Watson has undergone prior endoscopy. He underwent colonoscopy for by Dr. Gian Peterson last year and was found to have a slightly incomplete prep but found to have a 25 mm polyp in the cecum that was removed in piecemeal fashion. He had had polyps removed previously in 2016 and a polyp removed by Dr. Al in 2009. His mother and maternal grandmother both had colon cancer. He has 4 children. The patient is being seen by me today at the request of Dr. Breanne Whittington MD for my opinion and advice regarding family history of colon cancer with follow-up for a larger polyp removed in piecemeal fashion. PAST MEDICAL HISTORY PAST MEDICAL HISTORY Diagnosis Date Acute myocardial infarction of lateral wall (HCC) 2012 s/p LAD stent Aortic valve stenosis Atrophy of left kidney Benign neoplasm of colon Benign neoplasm of meninges (HCC) 08/02/2020 Bursitis CAD (coronary artery disease) Chronic kidney disease External hemorrhoids Hammertoe of right foot Hyperlipidemia Hypokalemia Irregular heart rhythm Lipoma Meningioma (HCC) Mitral valve prolapse Neuroma MELL on CPAP Seizure (HCC) focal motor PAST SURGICAL HISTORY PAST SURGICAL HISTORY Procedure Laterality Date COLONOSCOPY FLX DX W/COLLJ SPEC WHEN PFRMD 10/29/2009 Colonoscopy COLONOSCOPY FLX DX W/COLLJ SPEC WHEN PFRMD 2016 HEMORRHOID;BAND LIGAT, SNGL/MUL 12/2016 MRI 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 CPAP/BIPAP/OTHER Type .CPAPSettings into a note to see current settings/supplies/DME information. clonazePAM orally disintegrating (KLONOPIN WAFER) 1 mg disintegrating tablet DISSOLVE 1 TABLET IN MOUTH THREE TIMES DAILY NEEDED (SEIZURES) FOR UP TO 30 DAYS sildenafil (VIAGRA) 100 mg tablet Take 1 pill 1 hour prior to sexual activity on empty stomach CPAP/BIPAP/OTHER MASK REFITTING. Continue Auto CPAP with current settings of 5-20 cm H2O. Lifetime supplies for Auto CPAP, including patient preferred mask, head gear, heated tubing, humidity, filters, chin strap. Dx: Obstructive Sleep Apnea G47.33 DME: [facility] ph [phone] fax# [phone] Fax download reports to [phone]. levETIRAcetam (KEPPRA) 500 mg tablet Take 2 tablets by mouth two times a day. dexAMETHasone (DECADRON) 2 mg tablet 2 mg the day prior to the flight, the day of the flight and the day after the flight. CPAP Initiate Auto PAP @ 5-20 cm of water with humidification. Mask (per patient preference) optional chin strap (if indicated) , filters, tubing, humidifier and lifetime supplies. rosuvastatin (CRESTOR) 40 mg tablet Take 40 mg by mouth. Multivitamin capsule Take 1 capsule by mouth once daily. aspirin(ADULT LOW DOSE ASPIRIN 81 MG TAB, DELAYED RELEASE) Take one(1) tablet daily. peg 3350-Electrolytes (GOLYTELY) 236-22.74-6.74 -5.86 gram suspension Take 4,000 mL by mouth one time only for 1 dose. Refer to printed prep instructions from your provider. No current facility-administered medications for this visit. ALLERGIES: Atorvastatin PERSONAL HISTORY: SOCIAL HISTORY Social History Tobacco Use Smoking status: Never Smokeless tobacco: Never Vaping Use Vaping Use: Never used Substance Use Topics Alcohol use: No Drug use: No FAMILY HISTORY: FAMILY HISTORY FAMILY HISTORY Problem Relation Age of Onset Colon Cancer Mother ascending large intestine removed 2008 at 80 years old Prostate Cancer Brother Colon Cancer Maternal Grandmother portion lower colon removed 60 years old, colostomy REVIEW OF SYMPTOMS: The review of systems data was entered by the nurse and reviewed by hi Nursing Notes: Milady Velasco LPN 12/07/2023 10:39 AM Signed REVIEW OF SYSTEMS: General: The patient denies fatigue, denies weight loss, denies weight gain, denies feeling hot, and denies feelings of cold. Eyes: The patient denies glaucoma, denies eye injury/surgery, wears glasses or contacts. Ear/Nose/Throat: The patient NOTES allergies, denies hayfever, denies ear infections, and denies bloody noses. Cardiovascular: The patient NOTES chest pain, NOTES heart disease, denies high blood pressure,NOTES cardiac stent, NOTES prior heart attack, NOTES irregular heart beat, NOTES high cholesterol, denies poor circulation, denies heart failure, other cardiac issues, denies claudication, denies cold feet, denies peripheral arterial stent. Respiratory: The patient denies tuberculosis, denies pneumonia, denies frequent cough, denies pulmonary embolism, denies shortness of breath, and denies coughing up blood. Gastrointestinal: The patient denies difficulty swallowing, denies acid reflux, denies ulcers, denies vomiting, denies jaundice/hepatitis, denies gallbladder problems, denies black or tarry stools, NOTES hemorrhoids, denies bleeding from rectum, denies diverticulitis, denies constipation, denies diarrhea, denies loss of stool control, and denies hernias. Kidney/Bladder: The patient NOTES kidney stones, NOTES urine infections, and NOTES bloody urine. Skin: The patient denies a history of skin cancer, denies bleeding/changing moles, and denies a history of skin rash. Neurologic: The patient NOTES a history of epilepsy/convulsions, denies headaches, denies head/spinal injuries, and denies stroke/TIA. Psychiatric: The patient denies psychiatric medications, denies depression, and denies voices, denies substance abuse. Endocrine: The patient denies thyroid disorders, denies diabetes, and denies hormonal problems. Hematologic: The patient denies a history of bruising, denies bleeding, and denies anemia, denies blood clots. Infections: The patient denies a history of measles and mumps, denies rheumatic fever, and denies sexually transmitted diseases. Musculoskeletal: The patient denies back pain/injury, denies back problems, denies sciatica, denies knee/foot trouble, denies arthritis, or denies gout. When was patient's last Mammogram screening? N/A Last Colonoscopy: 2022 Milady Velasco LPN PHYSICAL EXAMINATION: General: The patient is 63 year old male, well nourished, well hydrated in no acute distress. The patient is oriented to time, place, and person. VITALS: Blood pressure 128/76, pulse 61, temperature 36.8 C (98.2 F), height 180.3 cm (5' 11), weight 85.3 kg (188 lb), SpO2 97%. Body mass index is 26.22 kg/m . HEENT: Normal cephalic, ataumatic, pupils are equally round, sclera are anicteric, mucous membranes are moist, oropharynx is clear. Neck has no masses, asymmetry or lymphadenopathy. Thyroid is unremarkable. Respiratory: Clear to auscultation and percussion. Normal respiratory excursion and pattern. Cardiac: Examination is regular rate and rhythm. Abdominal exam: Soft, nontender, with no palpable masses. No hepatosplenomegaly. No palpable hernias. Rectal exam: exam deferred Extremities: no clubbing, cyanosis or edema. No adenopathy. Other: LABORATORY VALUES: As Noted RADIOLOGIC STUDIES: As Noted Assessment IMPRESSION: Family history of colon cancer, large cecal polyp reviewed piecemeal fashion PLAN: I plan to perform lower endoscopy. We discussed the risks and benefits of the planned endoscopy. I have informed the patient that complications can occur including failure to complete the endoscopy and perforation. The patient had the opportunity to ask questions concerning the planned endoscopy. My staff has also explained the procedure to the patient in understandable terms and has given the patient printed material concerning the procedure. The patient freely consents to surgery. I plan to use golytely bowel preparation for endoscopy I plan for monitored anesthetic care. Given his family history I would refer to genetic counseling for consideration of genetic testing. Diagnoses: (Z80.0) Family history of colon cancer in mother (primary encounter diagnosis) (Z86.010) History of colonic polyps My findings have been communicated to Dr. Breanne Whittington MD via shared medical record. This note will be forwarded to Dr. Breanne Whittington MD. Return to Clinic: The patient is instructed to follow-up with me after the testing has been completed. Orquidea Ley MD HISTORY AND PHYSICAL Watson Rodriguez 1960 REFERRING PHYSICIAN: Fouzia Amado A* CHIEF COMPLAINT: Consult (Screening for colon cancer) HPI: The patient is a 63 year old male referred for endoscopy. Watson notes no current colon complaints The patient notes no history of upper GI complaints. Watson has undergone prior endoscopy. He underwent colonoscopy for by Dr. Gian Peterson last year and was found to have a slightly incomplete prep but found to have a 25 mm polyp in the cecum that was removed in piecemeal fashion. He had had polyps removed previously in 2016 and a polyp removed by Dr. Al in 2009. His mother and maternal grandmother both had colon cancer. He has 4 children. The patient is being seen by me today at the request of Dr. Breanne Whittington MD for my opinion and advice regarding family history of colon cancer with follow-up for a larger polyp removed in piecemeal fashion. PAST MEDICAL HISTORY PAST MEDICAL HISTORY Diagnosis Date Acute myocardial infarction of lateral wall (HCC) 2012 s/p LAD stent Aortic valve stenosis Atrophy of left kidney Benign neoplasm of colon Benign neoplasm of meninges (HCC) 08/02/2020 Bursitis CAD (coronary artery disease) Chronic kidney disease External hemorrhoids Hammertoe of right foot Hyperlipidemia Hypokalemia Irregular heart rhythm Lipoma Meningioma (HCC) Mitral valve prolapse Neuroma MELL on CPAP Seizure (HCC) focal motor PAST SURGICAL HISTORY PAST SURGICAL HISTORY Procedure Laterality Date COLONOSCOPY FLX DX W/COLLJ SPEC WHEN PFRMD 10/29/2009 Colonoscopy COLONOSCOPY FLX DX W/COLLJ SPEC WHEN PFRMD 2016 HEMORRHOID;BAND LIGAT, SNGL/MUL 12/2016 MRI 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 CPAP/BIPAP/OTHER Type .CPAPSettings into a note to see current settings/supplies/DME information. clonazePAM orally disintegrating (KLONOPIN WAFER) 1 mg disintegrating tablet DISSOLVE 1 TABLET IN MOUTH THREE TIMES DAILY NEEDED (SEIZURES) FOR UP TO 30 DAYS sildenafil (VIAGRA) 100 mg tablet Take 1 pill 1 hour prior to sexual activity on empty stomach CPAP/BIPAP/OTHER MASK REFITTING. Continue Auto CPAP with current settings of 5-20 cm H2O. Lifetime supplies for Auto CPAP, including patient preferred mask, head gear, heated tubing, humidity, filters, chin strap. Dx: Obstructive Sleep Apnea G47.33 DME: [facility] ph [phone] fax# [phone] Fax download reports to [phone]. levETIRAcetam (KEPPRA) 500 mg tablet Take 2 tablets by mouth two times a day. dexAMETHasone (DECADRON) 2 mg tablet 2 mg the day prior to the flight, the day of the flight and the day after the flight. CPAP Initiate Auto PAP @ 5-20 cm of water with humidification. Mask (per patient preference) optional chin strap (if indicated) , filters, tubing, humidifier and lifetime supplies. rosuvastatin (CRESTOR) 40 mg tablet Take 40 mg by mouth. Multivitamin capsule Take 1 capsule by mouth once daily. aspirin(ADULT LOW DOSE ASPIRIN 81 MG TAB, DELAYED RELEASE) Take one(1) tablet daily. peg 3350-Electrolytes (GOLYTELY) 236-22.74-6.74 -5.86 gram suspension Take 4,000 mL by mouth one time only for 1 dose. Refer to printed prep instructions from your provider. No current facility-administered medications for this visit. ALLERGIES: Atorvastatin PERSONAL HISTORY: SOCIAL HISTORY Social History Tobacco Use Smoking status: Never Smokeless tobacco: Never Vaping Use Vaping Use: Never used Substance Use Topics Alcohol use: No Drug use: No FAMILY HISTORY: FAMILY HISTORY FAMILY HISTORY Problem Relation Age of Onset Colon Cancer Mother ascending large intestine removed 2008 at 80 years old Prostate Cancer Brother Colon Cancer Maternal Grandmother portion lower colon removed 60 years old, colostomy REVIEW OF SYMPTOMS: The review of systems data was entered by the nurse and reviewed by hi Nursing Notes: Milady Velasco LPN 12/07/2023 10:39 AM Signed REVIEW OF SYSTEMS: General: The patient denies fatigue, denies weight loss, denies weight gain, denies feeling hot, and denies feelings of cold. Eyes: The patient denies glaucoma, denies eye injury/surgery, wears glasses or contacts. Ear/Nose/Throat: The patient NOTES allergies, denies hayfever, denies ear infections, and denies bloody noses. Cardiovascular: The patient NOTES chest pain, NOTES heart disease, denies high blood pressure,NOTES cardiac stent, NOTES prior heart attack, NOTES irregular heart beat, NOTES high cholesterol, denies poor circulation, denies heart failure, other cardiac issues, denies claudication, denies cold feet, denies peripheral arterial stent. Respiratory: The patient denies tuberculosis, denies pneumonia, denies frequent cough, denies pulmonary embolism, denies shortness of breath, and denies coughing up blood. Gastrointestinal: The patient denies difficulty swallowing, denies acid reflux, denies ulcers, denies vomiting, denies jaundice/hepatitis, denies gallbladder problems, denies black or tarry stools, NOTES hemorrhoids, denies bleeding from rectum, denies diverticulitis, denies constipation, denies diarrhea, denies loss of stool control, and denies hernias. Kidney/Bladder: The patient NOTES kidney stones, NOTES urine infections, and NOTES bloody urine. Skin: The patient denies a history of skin cancer, denies bleeding/changing moles, and denies a history of skin rash. Neurologic: The patient NOTES a history of epilepsy/convulsions, denies headaches, denies head/spinal injuries, and denies stroke/TIA. Psychiatric: The patient denies psychiatric medications, denies depression, and denies voices, denies substance abuse. Endocrine: The patient denies thyroid disorders, denies diabetes, and denies hormonal problems. Hematologic: The patient denies a history of bruising, denies bleeding, and denies anemia, denies blood clots. Infections: The patient denies a history of measles and mumps, denies rheumatic fever, and denies sexually transmitted diseases. Musculoskeletal: The patient denies back pain/injury, denies back problems, denies sciatica, denies knee/foot trouble, denies arthritis, or denies gout. When was patient's last Mammogram screening? N/A Last Colonoscopy: 2022 Milady Velasco LPN PHYSICAL EXAMINATION: General: The patient is 63 year old male, well nourished, well hydrated in no acute distress. The patient is oriented to time, place, and person. VITALS: Blood pressure 128/76, pulse 61, temperature 36.8 C (98.2 F), height 180.3 cm (5' 11), weight 85.3 kg (188 lb), SpO2 97%. Body mass index is 26.22 kg/m . HEENT: Normal cephalic, ataumatic, pupils are equally round, sclera are anicteric, mucous membranes are moist, oropharynx is clear. Neck has no masses, asymmetry or lymphadenopathy. Thyroid is unremarkable. Respiratory: Clear to auscultation and percussion. Normal respiratory excursion and pattern. Cardiac: Examination is regular rate and rhythm. Abdominal exam: Soft, nontender, with no palpable masses. No hepatosplenomegaly. No palpable hernias. Rectal exam: exam deferred Extremities: no clubbing, cyanosis or edema. No adenopathy. Other: LABORATORY VALUES: As Noted RADIOLOGIC STUDIES: As Noted Assessment IMPRESSION: Family history of colon cancer, large cecal polyp reviewed piecemeal fashion PLAN: I plan to perform lower endoscopy. We discussed the risks and benefits of the planned endoscopy. I have informed the patient that complications can occur including failure to complete the endoscopy and perforation. The patient had the opportunity to ask questions concerning the planned endoscopy. My staff has also explained the procedure to the patient in understandable terms and has given the patient printed material concerning the procedure. The patient freely consents to surgery. I plan to use golytely bowel preparation for endoscopy I plan for monitored anesthetic care. Given his family history I would refer to genetic counseling for consideration of genetic testing. Diagnoses: (Z80.0) Family history of colon cancer in mother (primary encounter diagnosis) (Z86.010) History of colonic polyps My findings have been communicated to Dr. Breanne Whittington MD via shared medical record. This note will be forwarded to Dr. Breanne Whittington MD. Return to Clinic: The patient is instructed to follow-up with me after the testing has been completed. Orquidea Ley MD documented in this encounter [facility] 06-04-2024 Telephone encounter Note MyChart msg sent back to pt per his request with Dr. Whittington's response. [facility] 06-04-2024 [facility]iscellaneous Notes [facility] sent back to pt per his request with Dr. Whittington's response. No. The numbers are only very minimally elevated and nothing I would worry about at this point. Pt calling in with question for Dr. Whittington. Pt states had some labwork done recently and states his AST was elevated. Pt is getting it repeated when he returns from [place] at the beginning of July. Pt states he is concerned about the elevated AST. Reinforced Dr. Whittington's msg that one liver enzyme is mildly up. Likely ok but to be on the safe side, recheck labs in 2 weeks (pt will be in [place] at that time-Dr. Whittington okayed waiting til July). And that the elevation could also be from recent viral infection. Pt ALT within normal limits. Pt reassured. Pt's question is should he get his flu shot prior to leaving for [place] so within the next week or so? And is it any problem to get it with the elevated AST? Okay to msg pt back via [email or web address]. documented in this encounter [facility] 06-04-2024 Telephone encounter Note No. The numbers are only very minimally elevated and nothing I would worry about at this point. [facility] 06-04-2024 Telephone encounter Note Pt calling in with question for Dr. Whittington. Pt states had some labwork done recently and states his AST was elevated. Pt is getting it repeated when he returns from [place] at the beginning of July. Pt states he is concerned about the elevated AST. Reinforced Dr. Whittington's msg that one liver enzyme is mildly up. Likely ok but to be on the safe side, recheck labs in 2 weeks (pt will be in [place] at that time-Dr. Whittington okayed waiting til July). And that the elevation could also be from recent viral infection. Pt ALT within normal limits. Pt reassured. Pt's question is should he get his flu shot prior to leaving for [place] so within the next week or so? And is it any problem to get it with the elevated AST? Okay to msg pt back via [email or web address]. [facility] 06-02-2024 Telephone encounter Note PATIENT NOTIFIED OF SAME. [facility] 06-02-2024 Miscellaneous Notes PATIENT NOTIFIED OF SAME. Ok to wait Patient returned call and went over results, notes from Dr Whittington with understanding. Patient said he will be in [facility] from 06/11/2024 to first part of July. Asking if that would be alright to do labs then, or get them done at the end of this week? He is having Colonoscopy done on 06/09/2024. Please advise Called and left message on patients voicemail to return call to the office and ask to speak with a triage nurse. Kassandra Gamez MA Labs are ok. One liver enzyme is mildly up. Likely ok but to be on the safe side. Recheck labs in two weeks. Can be up even from recent viral infection etc. documented in this encounter [facility] 06-02-2024 Telephone encounter Note Ok to wait [facility] 06-02-2024 Telephone encounter Note Patient returned call and went over results, notes from Dr Whittington with understanding. Patient said he will be in [facility] from 06/11/2024 to first part of July. Asking if that would be alright to do labs then, or get them done at the end of this week? He is having Colonoscopy done on 06/09/2024. Please advise [facility] 06-02-2024 Telephone encounter Note Called and left message on patients voicemail to return call to the office and ask to speak with a triage nurse. Kassandra Gamez MA [facility] 05-31-2024 Telephone encounter Note Labs are ok. One liver enzyme is mildly up. Likely ok but to be on the safe side. Recheck labs in two weeks. Can be up even from recent viral infection etc. [facility] 04-25-2024 Note HNO ID: [id number] Author: BREANNE WHITTINGTON MD Service: ? Author Type: Physician Type: Progress Notes Filed: 04/25/2024 17:36 Note Text: Patient presents with: 6 Month Exam HPI: Patient presents today for office visit for 6 month follow up Follows with Neurology. Saw Dr. Devlin Next MRI in August Meningioma stable No Seizures They have decreased his keppra dose. Had a brother with prostate cancer. PSA was last checked 05/03/23. Does get up frequently at night. Bp is tighter today. Is asymptomatic. Will have his recheck one and my chart it to me. No dizziness or lightheaded. Finishing up Amoxil from seeing Sonia 04/18/24 cough is gone but still with some drainage. Would like to have ears checked while here today. No fever or chills. No sore throat. Following with cardiology saw Dr Sauceda with [facility] yesterday. Ordered repeat echo and to stay on same medications. If echo remains same will follow up with him in 1 year. Consult is scanned into chart. Using CPAP nightly and benefits from use. Was treated for tick bite 03/31/24 took course of Doxy as preventative. Wondering how long should take for area to heal completely? No bullseye rash. Tinnitus still constant. Pitch remains the same but volume has increased. Knows not much to be done for it. Has seen speciality for it and tried different things. Getting colonoscopy next month. No bowel changes. No issues with meds. No chest pain or shortness of breath. MEDICATIONS: Current Outpatient Medications Medication Sig amoxicillin-clavulanate potassium (AUGMENTIN) 875-125 mg per tablet Take 1 tablet by mouth two times a day for 10 days. levETIRAcetam (KEPPRA) 500 mg tablet Take 2 tablets by mouth two times a day. CPAP/BIPAP/OTHER Type .CPAPSettings into a note to see current settings/supplies/DME information. clonazePAM orally disintegrating (KLONOPIN WAFER) 1 mg disintegrating tablet DISSOLVE 1 TABLET IN MOUTH THREE TIMES DAILY NEEDED (SEIZURES) FOR UP TO 30 DAYS sildenafil (VIAGRA) 100 mg tablet Take 1 pill 1 hour prior to sexual activity on empty stomach CPAP/BIPAP/OTHER MASK REFITTING. Continue Auto CPAP with current settings of 5-20 cm H2O. Lifetime supplies for Auto CPAP, including patient preferred mask, head gear, heated tubing, humidity, filters, chin strap. Dx: Obstructive Sleep Apnea G47.33 DME: [facility] ph [phone] fax# [phone] Fax download reports to [phone]. dexAMETHasone (DECADRON) 2 mg tablet 2 mg the day prior to the flight, the day of the flight and the day after the flight. CPAP Initiate Auto PAP @ 5-20 cm of water with humidification. Mask (per patient preference) optional chin strap (if indicated) , filters, tubing, humidifier and lifetime supplies. rosuvastatin (CRESTOR) 40 mg tablet Take 40 mg by mouth. Multivitamin capsule Take 1 capsule by mouth once daily. aspirin(ADULT LOW DOSE ASPIRIN 81 MG TAB, DELAYED RELEASE) Take one(1) tablet daily. No current facility-administered medications for this visit. ALLERGIES: ALLERGIES Allergen Reactions Atorvastatin Myalgia, Other: See Comments PAST MEDICAL HISTORY Diagnosis Date Acute myocardial infarction of lateral wall (HCC) 2012 s/p LAD stent Aortic valve stenosis Atrophy of left kidney Benign neoplasm of colon Benign neoplasm of meninges (HCC) 08/02/2020 Bursitis CAD (coronary artery disease) Chronic kidney disease External hemorrhoids Hammertoe of right foot Hyperlipidemia Hypokalemia Irregular heart rhythm Lipoma Meningioma (HCC) Mitral valve prolapse Neuroma MELL on CPAP Seizure (HCC) focal motor PAST SURGICAL HISTORY Procedure Laterality Date COLONOSCOPY FLX DX W/COLLJ SPEC WHEN PFRMD 10/29/2009 Colonoscopy COLONOSCOPY FLX DX W/COLLJ SPEC WHEN PFRMD 2016 HEMORRHOID;BAND LIGAT, SNGL/MUL 12/2016 MRI 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 PAST SURGICAL HISTORY OF Left 04/2017 left knee arthroscopy - meniscus PAST SURGICAL HISTORY OF 01/2013 PTCA x 1 - LAD PT ED HEART AND VASCULAR 2012 coronary angioplasty graft and stent FAMILY HISTORY Problem Relation Age of Onset Colon Cancer Mother ascending large intestine removed 2008 at 80 years old Prostate Cancer Brother Colon Cancer Maternal Grandmother portion lower colon removed 60 years old, colostomy Social History Tobacco Use Smoking status: Never Smokeless tobacco: Never Vaping Use Vaping status: Never Used Substance Use Topics Alcohol use: No Drug use: No Reviewed current medications, allergies, past medical history, surgical history, family history and social history today. REVIEW OF SYSTEMS All other reviewed and negative other than HPI. HEALTH MAINTENANCE: Reviewed health maintenance issues today and recommended the following in detail. Influenza Vaccine(1) due on 01/13/2024 Covid-19 Vaccine( season) due on 01/13/20 (more content not included)... [facility] 04-25-2024 History of Presen t illness Narrative Patient presents with: 6 Month Exam HPI: Patient presents today for office visit for 6 month follow up Follows with Neurology. Saw Dr. Devlin Next MRI in August Meningioma stable No Seizures They have decreased his keppra dose. Had a brother with prostate cancer. PSA was last checked 05/03/23. Does get up frequently at night. Bp is tighter today. Is asymptomatic. Will have his recheck one and my chart it to me. No dizziness or lightheaded. Finishing up Amoxil from seeing Sonia 04/18/24 cough is gone but still with some drainage. Would like to have ears checked while here today. No fever or chills. No sore throat. Following with cardiology saw Dr Sauceda with [facility] yesterday. Ordered repeat echo and to stay on same medications. If echo remains same will follow up with him in 1 year. Consult is scanned into chart. Using CPAP nightly and benefits from use. Was treated for tick bite 03/31/24 took course of Doxy as preventative. Wondering how long should take for area to heal completely? No bullseye rash. Tinnitus still constant. Pitch remains the same but volume has increased. Knows not much to be done for it. Has seen speciality for it and tried different things. Getting colonoscopy next month. No bowel changes. No issues with meds. No chest pain or shortness of breath. MEDICATIONS: Current Outpatient Medications Medication Sig amoxicillin-clavulanate potassium (AUGMENTIN) 875-125 mg per tablet Take 1 tablet by mouth two times a day for 10 days. levETIRAcetam (KEPPRA) 500 mg tablet Take 2 tablets by mouth two times a day. CPAP/BIPAP/OTHER Type .CPAPSettings into a note to see current settings/supplies/DME information. clonazePAM orally disintegrating (KLONOPIN WAFER) 1 mg disintegrating tablet DISSOLVE 1 TABLET IN MOUTH THREE TIMES DAILY NEEDED (SEIZURES) FOR UP TO 30 DAYS sildenafil (VIAGRA) 100 mg tablet Take 1 pill 1 hour prior to sexual activity on empty stomach CPAP/BIPAP/OTHER MASK REFITTING. Continue Auto CPAP with current settings of 5-20 cm H2O. Lifetime supplies for Auto CPAP, including patient preferred mask, head gear, heated tubing, humidity, filters, chin strap. Dx: Obstructive Sleep Apnea G47.33 DME: [facility] [phone] fax# [phone] Fax download reports to [phone]. dexAMETHasone (DECADRON) 2 mg tablet 2 mg the day prior to the flight, the day of the flight and the day after the flight. CPAP Initiate Auto PAP @ 5-20 cm of water with humidification. Mask (per patient preference) optional chin strap (if indicated) , filters, tubing, humidifier and lifetime supplies. rosuvastatin (CRESTOR) 40 mg tablet Take 40 mg by mouth. Multivitamin capsule Take 1 capsule by mouth once daily. aspirin(ADULT LOW DOSE ASPIRIN 81 MG TAB, DELAYED RELEASE) Take one(1) tablet daily. No current facility-administered medications for this visit. ALLERGIES: ALLERGIES Allergen Reactions Atorvastatin Myalgia, Other: See Comments PAST MEDICAL HISTORY Diagnosis Date Acute myocardial infarction of lateral wall (HCC) 2012 s/p LAD stent Aortic valve stenosis Atrophy of left kidney Benign neoplasm of colon Benign neoplasm of meninges (HCC) 08/02/2020 Bursitis CAD (coronary artery disease) Chronic kidney disease External hemorrhoids Hammertoe of right foot Hyperlipidemia Hypokalemia Irregular heart rhythm Lipoma Meningioma (HCC) Mitral valve prolapse Neuroma MELL on CPAP Seizure (HCC) focal motor PAST SURGICAL HISTORY Procedure Laterality Date COLONOSCOPY FLX DX W/COLLJ SPEC WHEN PFRMD 10/29/2009 Colonoscopy COLONOSCOPY FLX DX W/COLLJ SPEC WHEN PFRMD 2016 HEMORRHOID;BAND LIGAT, SNGL/MUL 12/2016 MRI 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 PAST SURGICAL HISTORY OF Left 04/2017 left knee arthroscopy - meniscus PAST SURGICAL HISTORY OF 01/2013 PTCA x 1 - LAD PT ED HEART AND VASCULAR 2012 coronary angioplasty graft and stent FAMILY HISTORY Problem Relation Age of Onset Colon Cancer Mother ascending large intestine removed 2008 at 80 years old Prostate Cancer Brother Colon Cancer Maternal Grandmother portion lower colon removed 60 years old, colostomy Social History Tobacco Use Smoking status: Never Smokeless tobacco: Never Vaping Use Vaping status: Never Used Substance Use Topics Alcohol use: No Drug use: No Reviewed current medications, allergies, past medical history, surgical history, family history and social history today. REVIEW OF SYSTEMS All other reviewed and negative other than HPI. HEALTH MAINTENANCE: Reviewed health maintenance issues today and recommended the following in detail. Influenza Vaccine(1) due on 01/13/2024 Covid-19 Vaccine( season) due on 01/13/2024 Colorectal Cancer Screening due on 01/17/2024 LDL Cholesterol due on 05/03/2024 VITALS: BP 92/62 Pulse 62 Wt 85.7 kg (189 lb) SpO2 96% BMI 26.36 kg/m Last 4 Encounter Wt Readings: Date: Wt: 04/18/2024 84.4 kg (186 lb) 12/07/2023 85.3 kg (188 lb) 12/06/2023 85.9 kg (189 lb 6 oz) 10/31/2023 84.4 kg (186 lb) PHYSICAL EXAMINATION: General appearance: Well appearing, alert, in no acute distress, well-hydrated, well nourished. Skin: Skin color, texture, turgor normal, no suspicious rashes or lesions. Tic bite is healing Head: Normocephalic, no masses, lesions, tenderness or abnormalities Eyes: Anicteric sclera. Pupils are equally round and reactive to light. Extraocular movements are intact. Ears: External ears normal, canals clear Lungs: Lungs clear to auscultation. No wheezing, rhonchi, rales Heart: murmur unchanged. Abdomen: Normal abdominal exam, Abdomen soft, non-tender. Bowel sounds normal. No masses, organomegaly Extremities: No deformities, edema, skin discoloration, clubbing or cyanosis. Good capillary refill. Musculoskeletal: No joint swelling, deformity, or tenderness Peripheral pulses: Normal Neuro: Gait normal. Reflexes normal and symmetric. Sensation grossly intact. ASSESSMENT/PLAN: 1. Meningioma (HCC) - ICD9: 225.2, ICD10: D32.9 (primary diagnosis) - stable follow per neuro 2. Brain edema (HCC) - ICD9: 348.5, ICD10: G93.6 - stable. 3. Seizure (HCC) - ICD9: 780.39, ICD10: R56.9 On lower dose of med without complication. - LEVETIRACETAM 4. 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 5. Coronary artery disease involving benton coronary artery of benton heart without angina pectoris - ICD9: 414.01, ICD10: I25.10 - stable. Red flags for re-assessment reviewed with patient in detail. 6. Mixed hyperlipidemia - ICD9: 272.2, ICD10: E78.2 - Control undetermined, due for labs - Counseled on healthy diet and regular exercise - COMPREHENSIVE METABOLIC PANEL - LIPID PANEL BASIC 7. Mitral valve prolapse - ICD9: 424.0, ICD10: I34.1 - stable. 8. Myocardial ischemia - ICD9: 414.8, ICD10: I25.9 - per cardiology 9. MELL on CPAP - ICD9: 327.23, ICD10: G47.33 - benefiting from use 10. CKD (chronic kidney disease) stage 1, GFR 90 ml/min or greater - ICD9: 585.1, ICD10: N18.1 - follow labs. - COMPLETE BLOOD COUNT AND DIFFERENTIAL - COMPREHENSIVE METABOLIC PANEL 11. Glioblastoma (HCC) - ICD9: 191.9, ICD10: C71.9 -as above. 12. URI, acute - ICD9: 465.9, ICD10: J06.9 - improving. 13. Tick bite, unspecified site, subsequent encounter - ICD9: V58.89, 919.4, ICD10: W57.XXXD - doing well. Red flags for re-assessment reviewed with patient in detail. 14. Screening for prostate cancer - ICD9: V76.44, ICD10: Z12.5 - PSA/PROSTATE SPECIFIC ANTIGEN SCREENING Breanne Whittington MD documented in this encounter [facility] 04-18-2024 Instructions Fouzia Amado APRN.CNP - 04/18/2024 9:59 AM EST 1) See Dr. Whittington next week 2) Augmentin 2 x day for 10 days 3) Saline nasal spray frequently while on antibiotic documented in this encounter [facility] 04-18-2024 Note HNO ID: [id number] Author: FOUZIA AMADO APRN.[employer] Service: ? Author Type: Clinical Nurse Specialist Type: Progress Notes Filed: 04/18/2024 09:59 Note Text: This is a 64 year old male who presents today with: Patient presents with: Cough: Started 03/20/24. Deep cough, productive URI: Head congestion HISTORY OF PRESENT ILLNESS: Watson Rodriguez is a 64 year old male. Patient presents with: Cough: Started 03/20/24. Deep cough, productive URI: Head congestion Started with a dry cough about 4 1/2 weeks again. Treated for tick bite with doxycyline for 10 days. Cough improved. Once again, he got the cough and chest congestion. More cough in the evening. Coughing a lot when he lays down. Took a picture of sputum- dark yellow. Hasn't taken decongestants. No fever or chills. Some sinus pressure and drainage in throat. PAST MEDICAL HISTORY: PAST MEDICAL HISTORY Diagnosis Date Acute myocardial infarction of lateral wall (HCC) 2012 s/p LAD stent Aortic valve stenosis Atrophy of left kidney Benign neoplasm of colon Benign neoplasm of meninges (HCC) 08/02/2020 Bursitis CAD (coronary artery disease) Chronic kidney disease External hemorrhoids Hammertoe of right foot Hyperlipidemia Hypokalemia Irregular heart rhythm Lipoma Meningioma (HCC) Mitral valve prolapse Neuroma MELL on CPAP Seizure (HCC) focal motor PAST SURGICAL HISTORY Procedure Laterality Date COLONOSCOPY FLX DX W/COLLJ SPEC WHEN PFRMD 10/29/2009 Colonoscopy COLONOSCOPY FLX DX W/COLLJ SPEC WHEN PFRMD 2016 HEMORRHOID;BAND LIGAT, SNGL/MUL 12/2016 MRI 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 clonazePAM orally disintegrating (KLONOPIN WAFER) 1 mg disintegrating tablet DISSOLVE 1 TABLET IN MOUTH THREE TIMES DAILY NEEDED (SEIZURES) FOR UP TO 30 DAYS sildenafil (VIAGRA) 100 mg tablet Take 1 pill 1 hour prior to sexual activity on empty stomach dexAMETHasone (DECADRON) 2 mg tablet 2 mg the day prior to the flight, the day of the flight and the day after the flight. rosuvastatin (CRESTOR) 40 mg tablet Take 40 mg by mouth. Multivitamin capsule Take 1 capsule by mouth once daily. aspirin(ADULT LOW DOSE ASPIRIN 81 MG TAB, DELAYED RELEASE) Take one(1) tablet daily. CPAP/BIPAP/OTHER Type .CPAPSettings into a note to see current settings/supplies/DME information. CPAP/BIPAP/OTHER MASK REFITTING. Continue Auto CPAP with current settings of 5-20 cm H2O. Lifetime supplies for Auto CPAP, including patient preferred mask, head gear, heated tubing, humidity, filters, chin strap. Dx: Obstructive Sleep Apnea G47.33 DME: [employer] ph [phone] fax# [phone] Fax download reports to [phone]. CPAP Initiate Auto PAP @ 5-20 cm of water with humidification. Mask (per patient preference) optional chin strap (if indicated) , filters, tubing, humidifier and lifetime supplies. No current facility-administered medications for this visit. FAMILY HISTORY Problem Relation Age of Onset Colon Cancer Mother ascending large intestine removed 2009 at 80 years old Prostate Cancer Brother Colon Cancer Maternal Grandmother portion lower colon removed 60 years old, colostomy Social History Tobacco Use Smoking status: Never Smokeless tobacco: Never Vaping Use Vaping status: Never Used Substance Use Topics Alcohol use: No Drug use: No EXAM: BP 124/72 Pulse 61 Temp 36.2 ?C (97.1 ?F) (Tympanic) Resp 16 Wt 84.4 kg (186 lb) SpO2 97% BMI 25.94 kg/m? PHYSICAL EXAM: Physical Exam Vitals reviewed. Constitutional: Appearance: Normal appearance. HENT: Head: Normocephalic. Right Ear: Ear canal and external ear normal. There is no impacted cerumen. Left Ear: Tympanic membrane, ear canal and external ear normal. There is no impacted cerumen. Ears: Comments: Right ear bulging Nose: Congestion and rhinorrhea present. Comments: Nasal erosions right nare, purulent matter and PND Mouth/Throat: Pharynx: Oropharyngeal exudate present. No posterior oropharyngeal erythema. Cardiovascular: Rate and Rhythm: Normal rate and regular rhythm. Pulses: Normal pulses. Heart sounds: Murmur heard. Pulmonary: Effort: Pulmonary effort is normal. Breath sounds: Normal breath sounds. Comments: Positive egophony in bronchial Musculoskeletal: General: Normal range of motion. Neurological: Mental Status: He is alert. LABS: ASSESSMENT/PLAN: 1. Acute maxillary sinusitis, recurrence not specified - ICD9: 461.0, ICD10: J01.00 - Will begin treatment with Augmentin 875 mg PO BI (more content not included)... [facility] 04-18-2024 History of Presen t illness Narrative This is a 64 year old male who presents today with: Patient presents with: Cough: Started 03/20/24. Deep cough, productive URI: Head congestion HISTORY OF PRESENT ILLNESS: Watson Rodriguez is a 64 year old male. Patient presents with: Cough: Started 03/20/24. Deep cough, productive URI: Head congestion Started with a dry cough about 4 1/2 weeks again. Treated for tick bite with doxycyline for 10 days. Cough improved. Once again, he got the cough and chest congestion. More cough in the evening. Coughing a lot when he lays down. Took a picture of sputum- dark yellow. Hasn't taken decongestants. No fever or chills. Some sinus pressure and drainage in throat. PAST MEDICAL HISTORY: PAST MEDICAL HISTORY Diagnosis Date Acute myocardial infarction of lateral wall (HCC) 2012 s/p LAD stent Aortic valve stenosis Atrophy of left kidney Benign neoplasm of colon Benign neoplasm of meninges (HCC) 08/02/2020 Bursitis CAD (coronary artery disease) Chronic kidney disease External hemorrhoids Hammertoe of right foot Hyperlipidemia Hypokalemia Irregular heart rhythm Lipoma Meningioma (HCC) Mitral valve prolapse Neuroma MELL on CPAP Seizure (HCC) focal motor PAST SURGICAL HISTORY Procedure Laterality Date COLONOSCOPY FLX DX W/COLLJ SPEC WHEN PFRMD 10/29/2009 Colonoscopy COLONOSCOPY FLX DX W/COLLJ SPEC WHEN PFRMD 2016 HEMORRHOID;BAND LIGAT, SNGL/MUL 12/2016 MRI 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 clonazePAM orally disintegrating (KLONOPIN WAFER) 1 mg disintegrating tablet DISSOLVE 1 TABLET IN MOUTH THREE TIMES DAILY NEEDED (SEIZURES) FOR UP TO 30 DAYS sildenafil (VIAGRA) 100 mg tablet Take 1 pill 1 hour prior to sexual activity on empty stomach dexAMETHasone (DECADRON) 2 mg tablet 2 mg the day prior to the flight, the day of the flight and the day after the flight. rosuvastatin (CRESTOR) 40 mg tablet Take 40 mg by mouth. Multivitamin capsule Take 1 capsule by mouth once daily. aspirin(ADULT LOW DOSE ASPIRIN 81 MG TAB, DELAYED RELEASE) Take one(1) tablet daily. CPAP/BIPAP/OTHER Type .CPAPSettings into a note to see current settings/supplies/DME information. CPAP/BIPAP/OTHER MASK REFITTING. Continue Auto CPAP with current settings of 5-20 cm H2O. Lifetime supplies for Auto CPAP, including patient preferred mask, head gear, heated tubing, humidity, filters, chin strap. Dx: Obstructive Sleep Apnea G47.33 DME: [facility] ph [phone] fax# [phone] Fax download reports to [phone]. CPAP Initiate Auto PAP @ 5-20 cm of water with humidification. Mask (per patient preference) optional chin strap (if indicated) , filters, tubing, humidifier and lifetime supplies. No current facility-administered medications for this visit. FAMILY HISTORY Problem Relation Age of Onset Colon Cancer Mother ascending large intestine removed 2008 at 80 years old Prostate Cancer Brother Colon Cancer Maternal Grandmother portion lower colon removed 60 years old, colostomy Social History Tobacco Use Smoking status: Never Smokeless tobacco: Never Vaping Use Vaping status: Never Used Substance Use Topics Alcohol use: No Drug use: No EXAM: BP 124/72 Pulse 61 Temp 36.2 C (97.1 F) (Tympanic) Resp 16 Wt 84.4 kg (186 lb) SpO2 97% BMI 25.94 kg/m PHYSICAL EXAM: Physical Exam Vitals reviewed. Constitutional: Appearance: Normal appearance. HENT: Head: Normocephalic. Right Ear: Ear canal and external ear normal. There is no impacted cerumen. Left Ear: Tympanic membrane, ear canal and external ear normal. There is no impacted cerumen. Ears: Comments: Right ear bulging Nose: Congestion and rhinorrhea present. Comments: Nasal erosions right nare, purulent matter and PND Mouth/Throat: Pharynx: Oropharyngeal exudate present. No posterior oropharyngeal erythema. Cardiovascular: Rate and Rhythm: Normal rate and regular rhythm. Pulses: Normal pulses. Heart sounds: Murmur heard. Pulmonary: Effort: Pulmonary effort is normal. Breath sounds: Normal breath sounds. Comments: Positive egophony in bronchial Musculoskeletal: General: Normal range of motion. Neurological: Mental Status: He is alert. LABS: ASSESSMENT/PLAN: 1. Acute maxillary sinusitis, recurrence not specified - ICD9: 461.0, ICD10: J01.00 - Will begin treatment with Augmentin 875 mg PO BID for 10 days - AMOXICILLIN 875 MG-POTASSIUM CLAVULANATE 125 MG TABLET - saline nasal spray frequently for 10 days Discussed treatment plan and patient voices understanding. Patient's questions answered appropriately. Medications and potential side effects were discussed and patient voices understanding. Return to the office as scheduled or as needed for worsening/no improvement. Fouzia Amado APRN.MONO documented in this encounter [facility] 03-31-2024 Note HNO ID: [id number] Author: HENOK WARREN APRN.MONO Service: ? Author Type: Nurse Practitioner Type: Progress Notes Filed: 03/31/2024 12:31 Note Text: This Team Access Model visit is a virtual encounter. It required patient-provider interaction for the medical decision making as documented below. Patient agrees to the visit: Yes Patient Location: [place] CC: Patient presents with: tic bite HPI Watson Rodriguez is a 63 year old male who is contacted today for a virtual visit. This is an established patient of Dr. Breanne Whittington MD. Patient in [place] helping a friend with deer stand Sunday of last week and then noticed the tick on Sunday. It was not engorged. Tried to remove with tweezers but unable to get the head. Started with redness surrounding the insect bite area after using a sterile needle to try and remove the head. Has been putting triple antibiotic ointment with a bandaid to area. Reports the redness to the site is worsening but no red streaking and no drainage. Is not tender. 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 Denies fever, chills, or other concern. REVIEW OF SYSTEMS See HPI PAST MEDICAL HISTORY Diagnosis Date Acute myocardial infarction of lateral wall (HCC) 2012 s/p LAD stent Aortic valve stenosis Atrophy of left kidney Benign neoplasm of colon Benign neoplasm of meninges (HCC) 08/02/2020 Bursitis CAD (coronary artery disease) Chronic kidney disease External hemorrhoids Hammertoe of right foot Hyperlipidemia Hypokalemia Irregular heart rhythm Lipoma Meningioma (HCC) Mitral valve prolapse Neuroma MELL on CPAP Seizure (HCC) focal motor PAST SURGICAL HISTORY Procedure Laterality Date COLONOSCOPY FLX DX W/COLLJ SPEC WHEN PFRMD 10/29/2009 Colonoscopy COLONOSCOPY FLX DX W/COLLJ SPEC WHEN PFRMD 2016 HEMORRHOID;BAND LIGAT, SNGL/MUL 12/2016 MRI 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 CPAP/BIPAP/OTHER Type .CPAPSettings into a note to see current settings/supplies/DME information. clonazePAM orally disintegrating (KLONOPIN WAFER) 1 mg disintegrating tablet DISSOLVE 1 TABLET IN MOUTH THREE TIMES DAILY NEEDED (SEIZURES) FOR UP TO 30 DAYS sildenafil (VIAGRA) 100 mg tablet Take 1 pill 1 hour prior to sexual activity on empty stomach CPAP/BIPAP/OTHER MASK REFITTING. Continue Auto CPAP with current settings of 5-20 cm H2O. Lifetime supplies for Auto CPAP, including patient preferred mask, head gear, heated tubing, humidity, filters, chin strap. Dx: Obstructive Sleep Apnea G47.33 DME: [facility] [phone] fax# [phone] Fax download reports to [phone]. dexAMETHasone (DECADRON) 2 mg tablet 2 mg the day prior to the flight, the day of the flight and the day after the flight. CPAP Initiate Auto PAP @ 5-20 cm of water with humidification. Mask (per patient preference) optional chin strap (if indicated) , filters, tubing, humidifier and lifetime supplies. rosuvastatin (CRESTOR) 40 mg tablet Take 40 mg by mouth. Multivitamin capsule Take 1 capsule by mouth once daily. aspirin(ADULT LOW DOSE ASPIRIN 81 MG TAB, DELAYED RELEASE) Take one(1) tablet daily. FAMILY HISTORY Problem Relation Age of Onset Colon Cancer Mother ascending large intestine removed 2008 at 80 years old Prostate Cancer Brother Colon Cancer Maternal Grandmother portion lower colon removed 60 years old, colostomy Social History Tobacco Use Smoking status: Never Smokeless tobacco: Never Vaping Use Vaping status: Never Used Substance Use Topics Alcohol use: No Drug use: No EXAM: Virtual visit completed using video, limited exam completed. GENERAL: alert and appropriate, in no distress, well-hydrated, well nourished, and happy, smiling, interactive RESPIRATORY: breathing non-labored CHEST: equal chest rise with normal respiratory effort Pictures reviewed showing redness with white center of wound. On video, did show area with redness but no red streaking. Influenza Vaccine(1) due on 01/13/2024 Covid-19 Vaccine( season) due on 01/13/2024 Colorectal Cancer Screening due on 01/17/2024 DTaP,Tdap,Td Vaccine(2 - Td or Tdap) due on 10/30/2024 Pneumococcal Vaccine: 65+(1 of 1 - PCV) due on 10/30/2024 LDL Cholesterol due on 05/03/2024 Annual PCP Team Chronic Disease Visit due on 10/30/2024 Depression Screening due on 10/30/2024 Anxiety Screening due on 10/30/2024 Serum Creatinine due on 12/06/2024 Diabetes Screening due on 12/06/2026 Lipid Screening due on 05/03/2028 Prostate Cancer Screening Discussion due on 05/03/2028 RSV Vaccine(1 - 1-do (more content not included)... [facility] 03-31-2024 History of Presen t illness Narrative This Team Access Model visit is a virtual encounter. It required patient-provider interaction for the medical decision making as documented below. Patient agrees to the visit: Yes Patient Location: [place] CC: Patient presents with: tic bite HPI Watson Rodriguez is a 63 year old male who is contacted today for a virtual visit. This is an established patient of Dr. Breanne Whittington MD. Patient in [place] helping a friend with deer stand Sunday of last week and then noticed the tick on Sunday. It was not engorged. Tried to remove with tweezers but unable to get the head. Started with redness surrounding the insect bite area after using a sterile needle to try and remove the head. Has been putting triple antibiotic ointment with a bandaid to area. Reports the redness to the site is worsening but no red streaking and no drainage. Is not tender. 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 Denies fever, chills, or other concern. REVIEW OF SYSTEMS See HPI PAST MEDICAL HISTORY Diagnosis Date Acute myocardial infarction of lateral wall (HCC) 2012 s/p LAD stent Aortic valve stenosis Atrophy of left kidney Benign neoplasm of colon Benign neoplasm of meninges (HCC) 08/02/2020 Bursitis CAD (coronary artery disease) Chronic kidney disease External hemorrhoids Hammertoe of right foot Hyperlipidemia Hypokalemia Irregular heart rhythm Lipoma Meningioma (HCC) Mitral valve prolapse Neuroma MELL on CPAP Seizure (HCC) focal motor PAST SURGICAL HISTORY Procedure Laterality Date COLONOSCOPY FLX DX W/COLLJ SPEC WHEN PFRMD 10/29/2009 Colonoscopy COLONOSCOPY FLX DX W/COLLJ SPEC WHEN PFRMD 2016 HEMORRHOID;BAND LIGAT, SNGL/MUL 12/2016 MRI 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 CPAP/BIPAP/OTHER Type .CPAPSettings into a note to see current settings/supplies/DME information. clonazePAM orally disintegrating (KLONOPIN WAFER) 1 mg disintegrating tablet DISSOLVE 1 TABLET IN MOUTH THREE TIMES DAILY NEEDED (SEIZURES) FOR UP TO 30 DAYS sildenafil (VIAGRA) 100 mg tablet Take 1 pill 1 hour prior to sexual activity on empty stomach CPAP/BIPAP/OTHER MASK REFITTING. Continue Auto CPAP with current settings of 5-20 cm H2O. Lifetime supplies for Auto CPAP, including patient preferred mask, head gear, heated tubing, humidity, filters, chin strap. Dx: Obstructive Sleep Apnea G47.33 DME: [facility] [phone] fax# [phone] Fax download reports to [phone]. dexAMETHasone (DECADRON) 2 mg tablet 2 mg the day prior to the flight, the day of the flight and the day after the flight. CPAP Initiate Auto PAP @ 5-20 cm of water with humidification. Mask (per patient preference) optional chin strap (if indicated) , filters, tubing, humidifier and lifetime supplies. rosuvastatin (CRESTOR) 40 mg tablet Take 40 mg by mouth. Multivitamin capsule Take 1 capsule by mouth once daily. aspirin(ADULT LOW DOSE ASPIRIN 81 MG TAB, DELAYED RELEASE) Take one(1) tablet daily. FAMILY HISTORY Problem Relation Age of Onset Colon Cancer Mother ascending large intestine removed 2008 at 80 years old Prostate Cancer Brother Colon Cancer Maternal Grandmother portion lower colon removed 60 years old, colostomy Social History Tobacco Use Smoking status: Never Smokeless tobacco: Never Vaping Use Vaping status: Never Used Substance Use Topics Alcohol use: No Drug use: No EXAM: Virtual visit completed using video, limited exam completed. GENERAL: alert and appropriate, in no distress, well-hydrated, well nourished, and happy, smiling, interactive RESPIRATORY: breathing non-labored CHEST: equal chest rise with normal respiratory effort Pictures reviewed showing redness with white center of wound. On video, did show area with redness but no red streaking. Influenza Vaccine(1) due on 01/13/2024 Covid-19 Vaccine( season) due on 01/13/2024 Colorectal Cancer Screening due on 01/17/2024 DTaP,Tdap,Td Vaccine(2 - Td or Tdap) due on 10/30/2024 Pneumococcal Vaccine: 65+(1 of 1 - PCV) due on 10/30/2024 LDL Cholesterol due on 05/03/2024 Annual PCP Team Chronic Disease Visit due on 10/30/2024 Depression Screening due on 10/30/2024 Anxiety Screening due on 10/30/2024 Serum Creatinine due on 12/06/2024 Diabetes Screening due on 12/06/2026 Lipid Screening due on 05/03/2028 Prostate Cancer Screening Discussion due on 05/03/2028 RSV Vaccine(1 - 1-dose 75+ series) due on 2033 Advance Directive Discussion Completed Hepatitis C Screening Completed HIV Screening Completed Shingrix Vaccine Completed HPV Vaccine Aged Out ASSESSMENT/PLAN: 1. Skin infection - ICD9: 686.9, ICD10: L08.9 (primary diagnosis) - explained to patient and that for a tick to transmit lyme, it must be attached for longer then it was and would also be engorged, which it was not. Also, none of the pictures provided showing a target type redness and more of the start of a possible site infection. Also explained the concern that this visit should have been in person so the area could be assessed fully. Patient and still very concerned even with this information. With the increasing redness and the base of the wound looking larger in picture (probably from trying to remove head with a needle) will treat for infection. - warm compresses to area - Begin treatment with antibiotic as ordered. - No lymphangetic streaking, this was defined for patient to watch for and to seek medical care immediately if appears 2. Tick bite, unspecified site, initial encounter - ICD9: 919.4, E906.4, ICD10: W57.XXXA As above Prescription instructions reviewed with patient as applicable. Potential red flag symptoms discussed with the patient. Reviewed appropriate action plan to take if red flag symptoms occur. Patient agreeable to treatment plan. During this patient visit I have spent approximately 15 minutes in counseling regarding treatment options and medications. Henok Warren APRN.CNP documented in this encounter [facility] 03-31-2024 Telephone encounter Note Will review further in appointment. Thank you Henok Warren APRN.CNP [facility] Work Phone: 03-31-2024 Miscellaneous Notes Will review further in appointment. Thank you Henok Warren APRN.CNP Triage Protocol Recommended: Appt with provider within 24 hours. Virtual appt made with provider for 11:20 am. Reason for Disposition [1] Red or very tender (to touch) area AND [2] started over 24 hours after the bite Answer Assessment - Initial Assessment Questions *SEE MYCHART PICTURES Patient was hiking last week in [facility] and noted a tick on his upper left thigh. Extracted tick on 03/26/24 but was unable to remove head. Reports head of tick remains embedded in leg. He has been putting Triple Abx ointment and bandaid on area. Some redness surrounding area now. Denies fever, rash, severe headache or any severe sx's. Reports he is fighting a cold as well. Patient interested in appt with provider to discuss further testing and treatment. 1. ATTACHED: see above 2. ONSET - TICK STILL ATTACHED: unsure how long tick was attched 3. ONSET - TICK NOT STILL ATTACHED: as above 4. LOCATION: as above 5. TYPE of TICK: not sure 6. SIZE of TICK: see picture 7. ENGORGED: no 8. OTHER SYMPTOMS: as above 9. : n/a Protocols used: Tick [id number] documented in this encounter [facility] 03-31-2024 Telephone encounter Note Pt scheduled today with henok warren. Ruthie Talbot MA [facility] 03-31-2024 Miscellaneous Notes Pt scheduled today with henok warren. Ruthie Talbot MA Needs ov or urgent care documented in this encounter [facility] 03-31-2024 Telephone encounter Note Needs ov or urgent care [facility] 03-31-2024 Telephone encounter Note Triage Protocol Recommended: Appt with provider within 24 hours. Virtual appt made with provider for 11:20 am. Reason for Disposition [1] Red or very tender (to touch) area AND [2] started over 24 hours after the bite Answer Assessment - Initial Assessment Questions *SEE MYCHART PICTURES Patient was hiking last week in [facility] and noted a tick on his upper left thigh. Extracted tick on 03/26/24 but was unable to remove head. Reports head of tick remains embedded in leg. He has been putting Triple Abx ointment and bandaid on area. Some redness surrounding area now. Denies fever, rash, severe headache or any severe sx's. Reports he is fighting a cold as well. Patient interested in appt with provider to discuss further testing and treatment. 1. ATTACHED: see above 2. ONSET - TICK STILL ATTACHED: unsure how long tick was attched 3. ONSET - TICK NOT STILL ATTACHED: as above 4. LOCATION: as above 5. TYPE of TICK: not sure 6. SIZE of TICK: see picture 7. ENGORGED: no 8. OTHER SYMPTOMS: as above 9. : n/a Protocols used: Tick [id number] [facility] 03-17-2024 Telephone encounter Note Patient called in and needs to reschedule his colonoscopy that is currently scheduled in April with Dr. Ley. Please reach out to patient to reschedule. Pippa Yun LPN [facility] 03-17-2024 Miscellaneous Notes Patient called in and needs to reschedule his colonoscopy that is currently scheduled in April with Dr. Ley. Please reach out to patient to reschedule. Pippa Yun LPN documented in this encounter [facility] 03-07-2024 Note HNO ID: [id number] Author: YANCY CENTENO MD Service: ? Author Type: Physician Type: Progress Notes Filed: 03/09/2024 23:14 Note Text: Neurological Start [facility] NEURO-ONCOLOGY VIRTUAL VISIT NOTE This is a virtual visit using HIPAA compliant video platform. It required patient-provider interaction for the medical decision making as documented below. I have communicated my name and active licensure. The patient's identity and physical location were verified at the time of this visit. Either the patient or their legal help desk representative has been informed of the risks and benefits of -- and alternatives to -- treatment through a remote evaluation and consents to proceed with the evaluation remotely. 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 Work up for lumbar spine cause non conclusive. 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 His right leg still numb and weakness. High step gait to avoid dragging his right lower extremity. He had GK-SRS to the tumor (25Gy/5fx) from 08/16/2020-08/20/2020. 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 March 07, 2024: Virtual visit The patient is accompanied by No new issues. Still with Rt foot paresthesia. Therapy Status Data Form Past Medical History: PAST MEDICAL HISTORY Diagnosis Date Acute myocardial infarction of lateral wall (HCC) 2012 s/p LAD stent Aortic valve stenosis Atrophy of left kidney Benign neoplasm of colon Benign neoplasm of meninges (HCC) 08/02/2020 Bursitis CAD (coronary artery disease) Chronic kidney disease External hemorrhoids Hammertoe of right foot Hyperlipidemia Hypokalemia Irregular heart rhythm Lipoma Meningioma (HCC) Mitral valve prolapse Neuroma MELL on CPAP Seizure (HCC) focal motor Past Surgical History: PAST SURGICAL HISTORY Procedure Laterality Date COLONOSCOPY FLX DX W/COLLJ SPEC WHEN PFRMD 10/29/2009 Colonoscopy COLONOSCOPY FLX DX W/COLLJ SPEC WHEN PFRMD 2016 HEMORRHOID;BAND LIGAT, SNGL/MUL 12/2016 MRI 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 PAST SURGICAL HISTORY OF Left 04/2017 left knee arthroscopy - meniscus PAST SURGICAL HISTORY OF 01/2013 PTCA x 1 - LAD PT ED HEART AND VASCULAR 2012 coronary angioplasty graft and stent Family History: FAMILY HISTORY Problem Relation Age of Onset Colon Cancer Mother ascending large intestine removed 2009 at 80 years old Prostate Cancer Brother Colon Cancer Maternal Grandmother portion lower colon removed 60 years old, colostomy Social History Tobacco Use Smoking status: Never Smokeless tobacco: Never Vaping Use Vaping status: Never Used Substance Use Topics Alcohol use: No Drug use: No Allergies: Atorvastatin Current Outpatient Medications on File Prior to Visit Medication Sig levETIRAcetam (KEPPRA) 500 mg tablet Take 2 tablets by mouth twice daily. midazolam (NAYZILAM) 5 mg/spray (0.1 mL) nasal spray Use 1 spray in one nostril as needed for seizures. May repeat dose in alternate nostril after 10 minutes based on response and tolerability. Only take for seizures lasting more than 3 minutes or more than 3 seizures in an hour clonazePAM orally disintegrating (KLONOPIN WAFER) 1 mg disintegrating tablet Dissolve 1 tablet under the tongue three times daily as needed (seizures) for up to 30 days. lacosamide (VIMPAT) 100 mg tab Take 200 Mg BID sildenafil (VIAGRA) 100 mg tablet Take 1 pill 1 hour prior to sexual activity on empty stomach dexAMETHasone (DECADRON) 2 mg tablet 2 mg the day prior to the flight, the day of the flight and the day after the flight. CPAP Initiate Auto PAP @ 5-20 cm of water with humidification. Mask (per patient preference) optional chin strap (if indicated) , filters, tubing, humidifier and lifetime supplies. rosuvastatin (CRESTOR) 40 mg tablet Take 40 mg by mouth. Multivitamin capsule Take 1 capsule by mouth once daily. aspirin(ADULT LOW DOSE ASPIRIN 81 MG TAB, DELAYED RELEASE) Take one(1) tablet daily. No current facility-administered medications on file prior to visit. Review of systems: SEE ABOVE Constitutional: No recent fever or weight loss. Eyes: No history of glaucoma or cataracts. ENMT: No recent ear infection, nasal congestion, mouth sores or sore throat. See HPI CV: No history of chest pain, palpitations Right leg swelling, SEE HPI Respiratory: No history of SOB, asthma or recent cough. Gastrointestinal: No history of nausea, vomiting, dysphagia or abdominal pain. Genito (more content not included)... [facility] 03-07-2024 History of Presen t illness Narrative Images from the original note were not included. Neurological Start [facility] NEURO-ONCOLOGY VIRTUAL VISIT NOTE This is a virtual visit using HIPAA compliant video platform. It required patient-provider interaction for the medical decision making as documented below. I have communicated my name and active licensure. The patient's identity and physical location were verified at the time of this visit. Either the patient or their legal help desk representative has been informed of the risks and benefits of -- and alternatives to -- treatment through a remote evaluation and consents to proceed with the evaluation remotely. 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 Work up for lumbar spine cause non conclusive. 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 His right leg still numb and weakness. High step gait to avoid dragging his right lower extremity. He had GK-SRS to the tumor (25Gy/5fx) from 08/16/2020-08/20/2020. 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 March 07, 2024: Virtual visit The patient is accompanied by No new issues. Still with Rt foot paresthesia. Therapy Status Data Form Past Medical History: PAST MEDICAL HISTORY Diagnosis Date Acute myocardial infarction of lateral wall (HCC) 2012 s/p LAD stent Aortic valve stenosis Atrophy of left kidney Benign neoplasm of colon Benign neoplasm of meninges (HCC) 08/02/2020 Bursitis CAD (coronary artery disease) Chronic kidney disease External hemorrhoids Hammertoe of right foot Hyperlipidemia Hypokalemia Irregular heart rhythm Lipoma Meningioma (HCC) Mitral valve prolapse Neuroma MELL on CPAP Seizure (HCC) focal motor Past Surgical History: PAST SURGICAL HISTORY Procedure Laterality Date COLONOSCOPY FLX DX W/COLLJ SPEC WHEN PFRMD 10/29/2009 Colonoscopy COLONOSCOPY FLX DX W/COLLJ SPEC WHEN PFRMD 2016 HEMORRHOID;BAND LIGAT, SNGL/MUL 12/2016 MRI 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 PAST SURGICAL HISTORY OF Left 04/2017 left knee arthroscopy - meniscus PAST SURGICAL HISTORY OF 01/2013 PTCA x 1 - LAD PT ED HEART AND VASCULAR 2012 coronary angioplasty graft and stent Family History: FAMILY HISTORY Problem Relation Age of Onset Colon Cancer Mother ascending large intestine removed 2008 at 80 years old Prostate Cancer Brother Colon Cancer Maternal Grandmother portion lower colon removed 60 years old, colostomy Social History Tobacco Use Smoking status: Never Smokeless tobacco: Never Vaping Use Vaping status: Never Used Substance Use Topics Alcohol use: No Drug use: No Allergies: Atorvastatin Current Outpatient Medications on File Prior to Visit Medication Sig levETIRAcetam (KEPPRA) 500 mg tablet Take 2 tablets by mouth twice daily. midazolam (NAYZILAM) 5 mg/spray (0.1 mL) nasal spray Use 1 spray in one nostril as needed for seizures. May repeat dose in alternate nostril after 10 minutes based on response and tolerability. Only take for seizures lasting more than 3 minutes or more than 3 seizures in an hour clonazePAM orally disintegrating (KLONOPIN WAFER) 1 mg disintegrating tablet Dissolve 1 tablet under the tongue three times daily as needed (seizures) for up to 30 days. lacosamide (VIMPAT) 100 mg tab Take 200 Mg BID sildenafil (VIAGRA) 100 mg tablet Take 1 pill 1 hour prior to sexual activity on empty stomach dexAMETHasone (DECADRON) 2 mg tablet 2 mg the day prior to the flight, the day of the flight and the day after the flight. CPAP Initiate Auto PAP @ 5-20 cm of water with humidification. Mask (per patient preference) optional chin strap (if indicated) , filters, tubing, humidifier and lifetime supplies. rosuvastatin (CRESTOR) 40 mg tablet Take 40 mg by mouth. Multivitamin capsule Take 1 capsule by mouth once daily. aspirin(ADULT LOW DOSE ASPIRIN 81 MG TAB, DELAYED RELEASE) Take one(1) tablet daily. No current facility-administered medications on file prior to visit. Review of systems: SEE ABOVE Constitutional: No recent fever or weight loss. Eyes: No history of glaucoma or cataracts. ENMT: No recent ear infection, nasal congestion, mouth sores or sore throat. See HPI CV: No history of chest pain, palpitations Right leg swelling, SEE HPI Respiratory: No history of SOB, asthma or recent cough. Gastrointestinal: No history of nausea, vomiting, dysphagia or abdominal pain. Genitourinary: No history of hematuria or dysuria. Musculoskeletal: No complaint of arthritis Has Right leg weakness, see HPI. Psychiatric: No history of hallucinations He feels somewhat anxious and also down emotionally as his neurological disability is affecting his QOL. ROS Neurological: SEE HPI No complaint of headache. Complaint of tinnitus, bilateral . No complaint of decreased hearing. No complaint of diplopia. No complaints of decreased visual acuity. Complaint of RT arm/leg numbness. Problem with RT limb coordination. No complaint of syncope Complaint of seizures, see HPI No loss of consciousness. Objective There were no vitals taken for this visit. This is a virtual exam based on observational as below: No vital signs. NEURO: on observation, CN II-XII intact, no pronator drift, no tremor noted, self reported and/or on observation moves extremities equally, no self-reported sensory deficits and ambulating without difficulty. Karnofsky performance status: 90 - Able to carry on normal activity, minor signs or symptoms of disease. ECOG performance status: 1 - Restricted in physically strenuous activity but ambulatory and able to carry out work of a light or sedentary nature, e.g., light house work or office work. 10/31/2023 PHQ 2 and 9 Total Scores PHQ-2 Score 0 Labs: Latest Ref Rng & Units 12/20/2022 03/29/2023 12/07/2023 CBC WBC 3.70 - 11.00 k/uL 4.07 8.00 5.23 RBC 4.20 - 6.00 m/uL 4.56 4.57 4.50 Hemoglobin 13.0 - 17.0 g/dL 14.4 14.6 14.1 Hematocrit 39.0 - 51.0 % 41.9 41.5 40.4 MCV 80.0 - 100.0 fL 91.9 90.8 89.8 MCH 26.0 - 34.0 pg 31.6 31.9 31.3 MCHC 30.5 - 36.0 g/dL 34.4 35.2 34.9 RDW-CV 11.5 - 15.0 % 11.8 11.7 11.8 Platelet Count 150 - 400 k/uL 151 178 176 MPV 9.0 - 12.7 fL 8.4 8.6 8.2 Baso% % 0.2 0.3 0.2 Abs Neut (ANC) 1.45 - 7.50 k/uL 2.79 6.30 3.42 Abs Lymph 1.00 - 4.00 k/uL 0.76 0.92 1.05 Abs Vinton <0.87 k/uL 0.46 0.70 0.67 Abs Eosin <0.46 k/uL 0.04 0.04 0.06 Abs Baso <0.11 k/uL <0.03 <0.03 <0.03 NRBC /100 WBC 0.0 0.0 0.0 Latest Ref Rng & Units 12/20/2022 03/29/2023 12/07/2023 CMP Sodium 136 - 144 mmol/L 134 135 134 Potassium 3.7 - 5.1 mmol/L 4.4 4.5 4.4 Chloride 98 - 107 mmol/L 101 100 100 CO2 22 - 30 mmol/L 24 27 29 Glucose 74 - 99 mg/dL 91 99 100 BUN 9 - 24 mg/dL 15 15 20 Creatinine 0.73 - 1.22 mg/dL 1.01 1.02 0.98 EGFR >=60 mL/min/1.73m 83 82 86 Protein, Total 6.3 - 8.0 g/dL 6.6 6.4 Albumin 3.9 - 4.9 g/dL 4.2 4.3 Calcium 8.5 - 10.2 mg/dL 9.2 9.4 8.9 Bilirubin, Total 0.2 - 1.3 mg/dL 0.6 0.7 AST 14 - 40 U/L 20 17 ALT 10 - 54 U/L 23 16 Alkaline Phosphatase 38 - 113 U/L 69 67 Final Pathology: N/A PATIENT HAS NOT HAD A BIOPSY/SURGERY OF HIS BRAIN TUMOR. Imaging: Results MRI BRAIN WO/W JAVID ([facility]#[id number] [facility]) (Order [id number]) Patient Info Patient Name Sex Watson Rose ([id number]) Male 1960 08/31/2023 12:34 PM - Radiology, [place] In Impression IMPRESSION: Similar/mildly increasing size of the posterior frontal-parietal parafalcine meningioma compared to prior MRI brain 01/26/2023. Paper Goods Machine Operator: NICOL Transcribe Date/Time: Aug 31 2023 12:24P Dictated by : CHAYO ARNOLD DO This examination was interpreted and the report reviewed and electronically signed by: CHAYO ARNOLD DO on Aug 31 2023 12:32PM EST I compared this MRI 08/31/2023, with previous MRI's and it seems that over time, the tumor has regressed. Assessment & Plan Mr. Watson Rodriguez is a 63-year-old male investigated for right leg numbness and weakness (couldn't stand on it) April 2020. Work up for lumbar spine cause non conclusive. He had an episode of seizure and MRI brain showed left parasagittal dural based lesion 4.9 x3.5x4.2 cm with small nodule extending to right side. His right leg still numb and weak. High step gait to avoid dragging his right lower extremity. He had GK-SRS to the tumor (25Gy/5fx) from 08/16/2020-08/20/[address] Sutton from Neurosurgery and Dr. [facility]. Mr. 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 He tolerated his treatments well. No side effects. His overall symptoms improved including his QOL. However, he still has persistent, right foot discomfort, a burning paresthesia. The etiology is likely from the brain tumor, as work up has failed to show a focal issue, and in fact his initial symptom was a right lower extremity discomfort/weakness. PLAN: 1-Meningioma (radiological diagnosis), S/P SRS-Gamma Knife: -Plan for brain MR w and w/o and perfusion booked for 09/01/2024 2-Return visit: 1-2 days after the MRI 3-Seizures: Continue Levetiracetam (Keppra). -Current LEV dose, 1000 mg BID, since 02/16/2023. -Now off lacosamide (Vimpat) since 01/29/23. He is aware that he could have seizures, so he is taking all precautions, including to use his rescue medications, clonazepam, however when he uses it, seldomly he says, average twice to 4 times a month, he feels quite sleepy afterwards. He is to avoids engaging in activities that require his full alertness, until he is back to base line of alertness. 4-Levetiracetam levels Latest Reference Range & Units 03/29/23 14:13 Levetiracetam 12.0 - 46.0 ug/mL 21.5 5-Rescue medications for breakthrough seizures using either midazolam nasal spray. Or clonazepam sublingual. Not to use both agents on the same day, can use either one in a 24-hour period. I discussed with the patient the potential benefits and side effects of this medications and he knows when and how to use them. 7-Paresthesias of the right leg/foot. He is still having right foot toes paresthesias. He was recommended acupuncture and may try this=. I discussed about Botox injections, for which he will need a referral, to neuromuscular clinic. He was not interested. 8-Driving a motor vehicle: He is driving a car now. 9-Follow-up with Dr. Sutton his neurosurgeon. 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 Sutton and Dr. 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 Not on steroids. Under my care he had 4/4 of his bevacizumab (mami) infusions every 3 weeks, which he completed on May 01, 2022, with benefit, see above. 10-Follow with his primary physician Dr. Whittington. 11-Follow up with scada technician Dr. Claudio Parks for cardiology care. 12-Follow up with Dr. Joe Santos, for nephology care, as patient has one functional kidney. 13. Follow with Dr. Carrillo, from podiatry. 14-Question about whether hs Rt foot issue is of vascular in origin. He says his PCP, has done work up and feel there is no vascular pathology. I offered order an MRV/Vascular MR to exclude vascular pathology but he declined. He feels that the vascular question has been answered and ruled out and wishes not to proceed with more test for that. At the end, Mr. Rodriguez and his Damaris, NARCISA, verbalized understanding, and agreement with above recommendations and had no further questions or concerns for the moment. I encourage him to call me at my office if he has any questions about the above plan. I spent a total of 30 minutes which included preparing to see the patient, [id number] patient care, additional 15 minutes to completing clinical documentation, obtaining and/or reviewing separately obtained history, performing a medically appropriate examination, counseling and educating the patient/family/caregiver, ordering medications, tests, or procedures, communicating with other HCPs (not separately reported), independently interpreting results (not separately reported), communicating results to the patient/family/caregiver, and care coordination (not separately reported). Yancy Centeno MD Staff Neuro-Oncologist [facility] CC: -Dr. Trev Sutton, Neurosurgery, [facility] -CC-Pipo Aviles MD, Radiation Oncology, [facility], [facility], [facility], [facility] -Joe Santos MD, Nephrology, [facility] Claudio Parks MD, Cardiology, [address], [address], [place] [address], PHONE: -Dr. Catarino Camacho, Epilepsy, [facility] -JORGE Alvarez, PCP, [address] [facility] [address], ; documented in this encounter [facility] 12-07-2023 Telephone encounter Note 04/21/2024 COLON SCREEN [place] Patient asking to be on waitlist for IMANI ONLY IN [place] ONLY ,Michelle Nino Production Operations Manager [facility] 12-07-2023 Miscellaneous Notes 04/21/2024 COLON SCREEN FARIA Patient asking to be on waitlist for IMANI ONLY IN [place] ONLY ,Michelle Nino Production Operations Manager documented in this encounter [facility] 12-07-2023 Nurse Note Patient educated, patient verbalized understanding. No further questions at this time. Milady Velasco LPN December 07, 2023 11:[address] [facility] 12-07-2023 Nurse Note Patient educated, patient verbalized understanding. No further questions at this time. Milady Velasco LPN December 07, 2023 11:37 AM REVIEW OF SYSTEMS: General: The patient denies fatigue, denies weight loss, denies weight gain, denies feeling hot, and denies feelings of cold. Eyes: The patient denies glaucoma, denies eye injury/surgery, wears glasses or contacts. Ear/Nose/Throat: The patient NOTES allergies, denies hayfever, denies ear infections, and denies bloody noses. Cardiovascular: The patient NOTES chest pain, NOTES heart disease, denies high blood pressure,NOTES cardiac stent, NOTES prior heart attack, NOTES irregular heart beat, NOTES high cholesterol, denies poor circulation, denies heart failure, other cardiac issues, denies claudication, denies cold feet, denies peripheral arterial stent. Respiratory: The patient denies tuberculosis, denies pneumonia, denies frequent cough, denies pulmonary embolism, denies shortness of breath, and denies coughing up blood. Gastrointestinal: The patient denies difficulty swallowing, denies acid reflux, denies ulcers, denies vomiting, denies jaundice/hepatitis, denies gallbladder problems, denies black or tarry stools, NOTES hemorrhoids, denies bleeding from rectum, denies diverticulitis, denies constipation, denies diarrhea, denies loss of stool control, and denies hernias. Kidney/Bladder: The patient NOTES kidney stones, NOTES urine infections, and NOTES bloody urine. Skin: The patient denies a history of skin cancer, denies bleeding/changing moles, and denies a history of skin rash. Neurologic: The patient NOTES a history of epilepsy/convulsions, denies headaches, denies head/spinal injuries, and denies stroke/TIA. Psychiatric: The patient denies psychiatric medications, denies depression, and denies voices, denies substance abuse. Endocrine: The patient denies thyroid disorders, denies diabetes, and denies hormonal problems. Hematologic: The patient denies a history of bruising, denies bleeding, and denies anemia, denies blood clots. Infections: The patient denies a history of measles and mumps, denies rheumatic fever, and denies sexually transmitted diseases. Musculoskeletal: The patient denies back pain/injury, denies back problems, denies sciatica, denies knee/foot trouble, denies arthritis, or denies gout. When was patient's last Mammogram screening? N/A Last Colonoscopy: 2022 Milady Velasco LPN documented in this encounter [facility] 12-07-2023 History of Presen t illness Narrative HISTORY AND PHYSICAL Watson Rodriguez 1960 REFERRING PHYSICIAN: Fouzia Amado A* CHIEF COMPLAINT: Consult (Screening for colon cancer) HPI: The patient is a 63 year old male referred for endoscopy. Watson notes no current colon complaints The patient notes no history of upper GI complaints. Watson has undergone prior endoscopy. He underwent colonoscopy for by Dr. Gian Peterson last year and was found to have a slightly incomplete prep but found to have a 25 mm polyp in the cecum that was removed in piecemeal fashion. He had had polyps removed previously in 2016 and a polyp removed by Dr. Al in 2009. His mother and maternal grandmother both had colon cancer. He has 4 children. The patient is being seen by me today at the request of Dr. Breanne Whittington MD for my opinion and advice regarding family history of colon cancer with follow-up for a larger polyp removed in piecemeal fashion. PAST MEDICAL HISTORY Diagnosis Date Acute myocardial infarction of lateral wall (HCC) 2012 s/p LAD stent Aortic valve stenosis Atrophy of left kidney Benign neoplasm of colon Benign neoplasm of meninges (HCC) 08/02/2020 Bursitis CAD (coronary artery disease) Chronic kidney disease External hemorrhoids Hammertoe of right foot Hyperlipidemia Hypokalemia Irregular heart rhythm Lipoma Meningioma (HCC) Mitral valve prolapse Neuroma MELL on CPAP Seizure (HCC) focal motor PAST SURGICAL HISTORY Procedure Laterality Date COLONOSCOPY FLX DX W/COLLJ SPEC WHEN PFRMD 10/29/2009 Colonoscopy COLONOSCOPY FLX DX W/COLLJ SPEC WHEN PFRMD 2016 HEMORRHOID;BAND LIGAT, SNGL/MUL 12/2016 MRI 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 CPAP/BIPAP/OTHER Type .CPAPSettings into a note to see current settings/supplies/DME information. clonazePAM orally disintegrating (KLONOPIN WAFER) 1 mg disintegrating tablet DISSOLVE 1 TABLET IN MOUTH THREE TIMES DAILY NEEDED (SEIZURES) FOR UP TO 30 DAYS sildenafil (VIAGRA) 100 mg tablet Take 1 pill 1 hour prior to sexual activity on empty stomach CPAP/BIPAP/OTHER MASK REFITTING. Continue Auto CPAP with current settings of 5-20 cm H2O. Lifetime supplies for Auto CPAP, including patient preferred mask, head gear, heated tubing, humidity, filters, chin strap. Dx: Obstructive Sleep Apnea G47.33 DME: Kinsey kahn [phone] fax# [phone] Fax download reports to [phone]. levETIRAcetam (KEPPRA) 500 mg tablet Take 2 tablets by mouth two times a day. dexAMETHasone (DECADRON) 2 mg tablet 2 mg the day prior to the flight, the day of the flight and the day after the flight. CPAP Initiate Auto PAP @ 5-20 cm of water with humidification. Mask (per patient preference) optional chin strap (if indicated) , filters, tubing, humidifier and lifetime supplies. rosuvastatin (CRESTOR) 40 mg tablet Take 40 mg by mouth. Multivitamin capsule Take 1 capsule by mouth once daily. aspirin(ADULT LOW DOSE ASPIRIN 81 MG TAB, DELAYED RELEASE) Take one(1) tablet daily. peg 3350-Electrolytes (GOLYTELY) 236-22.74-6.74 -5.86 gram suspension Take 4,000 mL by mouth one time only for 1 dose. Refer to printed prep instructions from your provider. No current facility-administered medications for this visit. ALLERGIES: Atorvastatin PERSONAL HISTORY: Social History Tobacco Use Smoking status: Never Smokeless tobacco: Never Vaping Use Vaping Use: Never used Substance Use Topics Alcohol use: No Drug use: No FAMILY HISTORY: FAMILY HISTORY Problem Relation Age of Onset Colon Cancer Mother ascending large intestine removed 2008 at 80 years old Prostate Cancer Brother Colon Cancer Maternal Grandmother portion lower colon removed 60 years old, colostomy REVIEW OF SYMPTOMS: The review of systems data was entered by the nurse and reviewed by hi Nursing Notes: Milady Velasco LPN 12/07/2023 10:39 AM Signed REVIEW OF SYSTEMS: General: The patient denies fatigue, denies weight loss, denies weight gain, denies feeling hot, and denies feelings of cold. Eyes: The patient denies glaucoma, denies eye injury/surgery, wears glasses or contacts. Ear/Nose/Throat: The patient NOTES allergies, denies hayfever, denies ear infections, and denies bloody noses. Cardiovascular: The patient NOTES chest pain, NOTES heart disease, denies high blood pressure,NOTES cardiac stent, NOTES prior heart attack, NOTES irregular heart beat, NOTES high cholesterol, denies poor circulation, denies heart failure, other cardiac issues, denies claudication, denies cold feet, denies peripheral arterial stent. Respiratory: The patient denies tuberculosis, denies pneumonia, denies frequent cough, denies pulmonary embolism, denies shortness of breath, and denies coughing up blood. Gastrointestinal: The patient denies difficulty swallowing, denies acid reflux, denies ulcers, denies vomiting, denies jaundice/hepatitis, denies gallbladder problems, denies black or tarry stools, NOTES hemorrhoids, denies bleeding from rectum, denies diverticulitis, denies constipation, denies diarrhea, denies loss of stool control, and denies hernias. Kidney/Bladder: The patient NOTES kidney stones, NOTES urine infections, and NOTES bloody urine. Skin: The patient denies a history of skin cancer, denies bleeding/changing moles, and denies a history of skin rash. Neurologic: The patient NOTES a history of epilepsy/convulsions, denies headaches, denies head/spinal injuries, and denies stroke/TIA. Psychiatric: The patient denies psychiatric medications, denies depression, and denies voices, denies substance abuse. Endocrine: The patient denies thyroid disorders, denies diabetes, and denies hormonal problems. Hematologic: The patient denies a history of bruising, denies bleeding, and denies anemia, denies blood clots. Infections: The patient denies a history of measles and mumps, denies rheumatic fever, and denies sexually transmitted diseases. Musculoskeletal: The patient denies back pain/injury, denies back problems, denies sciatica, denies knee/foot trouble, denies arthritis, or denies gout. When was patient's last Mammogram screening? N/A Last Colonoscopy: 2022 Milady Velasco LPN PHYSICAL EXAMINATION: General: The patient is 63 year old male, well nourished, well hydrated in no acute distress. The patient is oriented to time, place, and person. VITALS: Blood pressure 128/76, pulse 61, temperature 36.8 C (98.2 F), height 180.3 cm (5' 11), weight 85.3 kg (188 lb), SpO2 97%. Body mass index is 26.22 kg/m . HEENT: Normal cephalic, ataumatic, pupils are equally round, sclera are anicteric, mucous membranes are moist, oropharynx is clear. Neck has no masses, asymmetry or lymphadenopathy. Thyroid is unremarkable. Respiratory: Clear to auscultation and percussion. Normal respiratory excursion and pattern. Cardiac: Examination is regular rate and rhythm. Abdominal exam: Soft, nontender, with no palpable masses. No hepatosplenomegaly. No palpable hernias. Rectal exam: exam deferred Extremities: no clubbing, cyanosis or edema. No adenopathy. Other: LABORATORY VALUES: As Noted RADIOLOGIC STUDIES: As Noted Assessment IMPRESSION: Family history of colon cancer, large cecal polyp reviewed piecemeal fashion PLAN: I plan to perform lower endoscopy. We discussed the risks and benefits of the planned endoscopy. I have informed the patient that complications can occur including failure to complete the endoscopy and perforation. The patient had the opportunity to ask questions concerning the planned endoscopy. My staff has also explained the procedure to the patient in understandable terms and has given the patient printed material concerning the procedure. The patient freely consents to surgery. I plan to use golytely bowel preparation for endoscopy I plan for monitored anesthetic care. Given his family history I would refer to genetic counseling for consideration of genetic testing. Diagnoses: (Z80.0) Family history of colon cancer in mother (primary encounter diagnosis) (Z86.010) History of colonic polyps My findings have been communicated to Dr. Breanne Whittington MD via shared medical record. This note will be forwarded to Dr. Breanne Whittington MD. Return to Clinic: The patient is instructed to follow-up with me after the testing has been completed. Orquidea Ley MD documented in this encounter [facility] 12-07-2023 Instructions Orquidea Ley MD - 12/07/2023 11:09 AM EDT Images from the original note were not included. Bowel Preparation Instructions for: Golytely, Nulytely, Trilyte or Colyte (polyethylene glycol 3350 and electrolytes) IF YOU DO NOT FOLLOW THESE DIRECTIONS, YOUR COLONOSCOPY WILL BE CANCELLED. Ortega Instructions: Your bowel must be empty so that your doctor can clearly view your colon. Follow all of the instructions in this handout EXACTLY as they are written. Do NOT eat any solid food the ENTIRE day before your colonoscopy. Drink only clear liquids. Buy your bowel preparation at least 5 days before your colonoscopy. TRANSPORTATION on the Day of Your Exam A responsible person MUST be present with you at Check In prior to your colonoscopy and REMAIN in the endoscopy area until you are discharged. You are NOT ALLOWED to drive, take a taxi or bus, or leave the Endoscopy Center ALONE. If you do not have a responsible mobile lounge driver or operator (family member or friend) with you to take you home, your exam cannot be done with sedation and will be cancelled. Please bring a list of all of your current medications, including any Over-the Counter medications with you. Medications If you take insulin, diabetic medications or blood thinners such as Coumadin (warfarin), Plavix (clopidogrel), Ticlid (ticlopidine hydrochloride), Agrylin (anagrelide), Xarelto (Rivaroxaban), Pradaxa (Dabigatran), Eliquis (Apixaban), and Effient (Prasugrel). You MUST call the doctors who orders those medicines for instructions on altering the dosage before your colonoscopy. All other medications should be taken the day of the exam with a sip of water including ASPIRIN. Five (5) Days Before Your Colonoscopy Do NOT take medicines that stop diarrhea - such as Imodium, Kaopectate, or Pepto Bismol. Do NOT take fiber supplements - such as Metamucil, Citrucel, or Perdiem. Do NOT take products that contain iron - such as multi-vitamins (the label lists what is in the products). Do NOT take Vitamin E. Buy the prescription bowel preparation solution at your local pharmacy or drugstore pharmacy. 04/2019 Bowel Preparation Instructions for: Golytely, Nulytely, Trilyte or Colyte (polyethylene glycol 3350 and electrolytes) Three (3) Days Before Your Colonoscopy Do NOT eat high-fiber foods - such as popcorn, beans, seeds (flax, sunflower, quinoa), multigrain bread, nuts, salad/vegetables, or fresh and dried fruit. One (1) Day Before Your Colonoscopy Only drink clear liquids the ENTIRE DAY before your colonoscopy. Do NOT eat any solid foods. Drink at least 8 ounces of clear liquids every hour after waking up. The clear liquids you can drink include: Clear Liquid (NO RED LIQUIDS) DO NOT DRINK Gatorade, Pedialyte or Powerade Clear broth or bouillon Coffee or tea (no milk or non-dairy creamer) Carbonated and non-carbonated soft drinks Bruce-Aid or other fruit flavored drinks Strained fruit juices (no pulp) Jell-O, popsicles, hard candy Water Alcohol Milk or non-dairy creamers Noodles or vegetables in soup Juice with pulp Liquid you cannot see through Do not use tobacco/vaping products The bowel preparation solution will be consumed in two parts. Mix the solution the evening before your colonoscopy and refrigerate before drinking. You may add the flavor pack that came with the bowel preparation. Do NOT add ice, sugar or any other flavorings to the solution. Part 1 At 6:00 PM - Evening before your colonoscopy Drink an 8-oz glass of bowel preparation every 10 minutes until clear. 2 04/2019 documented in this encounter [facility] 12-07-2023 Nurse Note REVIEW OF SYSTEMS: General: The patient denies fatigue, denies weight loss, denies weight gain, denies feeling hot, and denies feelings of cold. Eyes: The patient denies glaucoma, denies eye injury/surgery, wears glasses or contacts. Ear/Nose/Throat: The patient NOTES allergies, denies hayfever, denies ear infections, and denies bloody noses. Cardiovascular: The patient NOTES chest pain, NOTES heart disease, denies high blood pressure,NOTES cardiac stent, NOTES prior heart attack, NOTES irregular heart beat, NOTES high cholesterol, denies poor circulation, denies heart failure, other cardiac issues, denies claudication, denies cold feet, denies peripheral arterial stent. Respiratory: The patient denies tuberculosis, denies pneumonia, denies frequent cough, denies pulmonary embolism, denies shortness of breath, and denies coughing up blood. Gastrointestinal: The patient denies difficulty swallowing, denies acid reflux, denies ulcers, denies vomiting, denies jaundice/hepatitis, denies gallbladder problems, denies black or tarry stools, NOTES hemorrhoids, denies bleeding from rectum, denies diverticulitis, denies constipation, denies diarrhea, denies loss of stool control, and denies hernias. Kidney/Bladder: The patient NOTES kidney stones, NOTES urine infections, and NOTES bloody urine. Skin: The patient denies a history of skin cancer, denies bleeding/changing moles, and denies a history of skin rash. Neurologic: The patient NOTES a history of epilepsy/convulsions, denies headaches, denies head/spinal injuries, and denies stroke/TIA. Psychiatric: The patient denies psychiatric medications, denies depression, and denies voices, denies substance abuse. Endocrine: The patient denies thyroid disorders, denies diabetes, and denies hormonal problems. Hematologic: The patient denies a history of bruising, denies bleeding, and denies anemia, denies blood clots. Infections: The patient denies a history of measles and mumps, denies rheumatic fever, and denies sexually transmitted diseases. Musculoskeletal: The patient denies back pain/injury, denies back problems, denies sciatica, denies knee/foot trouble, denies arthritis, or denies gout. When was patient's last Mammogram screening? N/A Last Colonoscopy: 2022 Milady Velasco LPN [facility] 12-06-2023 Instructions Danielle Khan PA-C - 12/06/2023 10:29 AM EDT Watson, I would like to thank you for spending time with me today and taking time to invest in your health. Below I have outlined some recommendations, I highly encourage you to work on. My recommendations only go so far, you have to do the work. Please reach our for support and questions via [email or web address]. Your plan: Referrals - Acupuncture, call [phone] Nutrition - continue anti-inflammatory foods as is - Eat some plant-based omega-3s every day: walnuts, ground emily seeds, ground flaxseeds, hemp seeds, edamame (soybeans), seaweed. - Eat fish containing omega-3s 1-2x/week: wild salmon, ocean trout, sardines, draper, mackerel, anchovies. Avoid fried fish. - Avoid the following oils and packaged foods containing these oils as much as possible: canola, soybean, sunflower, safflower, sesame, corn, grapeseed, and vegetable oil. These oils are inflammatory and decrease omega-3 levels. Use avocado oil and extra virgin olive oil instead. Exercise - continue to focus on walking, yoga Stress - [facility] wellness videos Go to [email or web address] Yoga - Come As You Are (gentle chair yoga) Augusto Chi Relaxation for chronic pain - guided meditations Relieve, Relax, Recharge - different meditations available Free wellness classes online (meditation, yoga, fitness) See the schedule and sign up for classes at: [email or web address] To set up a private one-hour yoga session with Chasidy Sequeira please call [phone] option 4 or email [email or web address]. Supplements: - For neuropathy: Alpha lipoic acid (ALA) 600 mg daily. If no improvement in 4-6 weeks, you can stop the supplement. Available OTC. Pure Encapsulations. - Take turmeric or curcumin 1000 mg twice daily to reduce pain and inflammation. The supplement must contain bioperine or black pepper for absorption. Good brands: Pure Encapsulations, [employer] (Meriva 500-SF), [employer] Extra Strength Tumeric with Lena, Nested Naturals, but since yours is working, you can continue this. documented in this encounter [facility] 12-06-2023 History of Presen t illness Narrative Images from the original note were not included. Wellness Consultation Mr.Dwight Rosemary Rodriguez is a 63 year old male is here for a wellness and preventive medicine initial consultation. Consultation requested by Dr. Breanne Whittington for an opinion regarding right leg pain. My final recommendations will be communicated back to the requesting physician by way of shared Medical record. Chief complaint: right leg pain HPI: 63 year old male with a history of CAD, meningioma and MELL presents with neuropathic foot pain (turmeric, ALA, ibuprofen). Keppra helping seizures (for 2 years). Clonzeapm helps the pain the next day. Tried and failed - gabapentin, keppra PT - stretching/exercises still, brain retraining Enhances pain - stress, loud/crowds, sugar Neurology - Dr. 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), 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, 9 grand children 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[employer], 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 Congregation/Spirituality Pertinent family history (AI, CVD): Current Supplements: - Curcumin 1000 mg BID (helping, started in May) - Lactobacillus daily PAST MEDICAL HISTORY Diagnosis Date Acute myocardial infarction of lateral wall (HCC) 2012 s/p LAD stent Benign neoplasm of colon Benign neoplasm of meninges (HCC) 08/02/2020 Hyperlipidemia Seizure (HCC) focal motor PAST SURGICAL HISTORY Procedure Laterality Date COLONOSCOPY FLX DX W/COLLJ SPEC WHEN PFRMD 10/29/2009 Colonoscopy HEMORRHOID;BAND LIGAT, SNGL/MUL 12/2016 PAST SURGICAL HISTORY OF Left 04/2017 left knee arthroscopy - meniscus PAST SURGICAL HISTORY OF 01/2013 PTCA x 1 - LAD ALLERGIES Allergen Reactions Atorvastatin Myalgia, Other: See Comments Current Outpatient Medications on File Prior to Visit Medication Sig CPAP/BIPAP/OTHER Type .CPAPSettings into a note to see current settings/supplies/DME information. clonazePAM orally disintegrating (KLONOPIN WAFER) 1 mg disintegrating tablet DISSOLVE 1 TABLET IN MOUTH THREE TIMES DAILY NEEDED (SEIZURES) FOR UP TO 30 DAYS sildenafil (VIAGRA) 100 mg tablet Take 1 pill 1 hour prior to sexual activity on empty stomach CPAP/BIPAP/OTHER MASK REFITTING. Continue Auto CPAP with current settings of 5-20 cm H2O. Lifetime supplies for Auto CPAP, including patient preferred mask, head gear, heated tubing, humidity, filters, chin strap. Dx: Obstructive Sleep Apnea G47.33 DME: [facility] [phone] fax# [phone] Fax download reports to [phone]. levETIRAcetam (KEPPRA) 500 mg tablet Take 2 tablets by mouth two times a day. dexAMETHasone (DECADRON) 2 mg tablet 2 mg the day prior to the flight, the day of the flight and the day after the flight. CPAP Initiate Auto PAP @ 5-20 cm of water with humidification. Mask (per patient preference) optional chin strap (if indicated) , filters, tubing, humidifier and lifetime supplies. rosuvastatin (CRESTOR) 40 mg tablet Take 40 mg by mouth. Multivitamin capsule Take 1 capsule by mouth once daily. aspirin(ADULT LOW DOSE ASPIRIN 81 MG TAB, DELAYED RELEASE) Take one(1) tablet daily. No current facility-administered medications on file prior to visit. Social History Tobacco Use Smoking status: Never Smokeless tobacco: Never Vaping Use Vaping Use: Never used Substance Use Topics Alcohol use: No Drug use: No FAMILY HISTORY Problem Relation Age of Onset Colon Cancer Mother ascending large intestine removed 2008 at 80 years old Prostate Cancer Brother Colon Cancer Maternal Grandmother portion lower colon removed 60 years old, colostomy Patient-Entered Questionnaires 05/01/2023 08/05/2023 12/04/2023 [facility] Physical Function PROMIS Physical Function T-Score 43 (mild dysfunction) 43 (mild dysfunction) 50 (within normal limits) 12/04/2023 [facility] Pain Interference PROMIS Pain Interference T-Score (range: 10 - 90) 57 (mild) 10/20/2020 10/30/2021 12/04/2023 [facility] Fatigue PROMIS Fatigue T-Score 60 (mild) 47 (within normal limits) 38 (within normal limits) 10/20/2020 10/30/2021 12/04/2023 [facility] Satisfaction with Social Roles PROMIS - Satisfaction with Participation in Social Roles T-Score 45 (Average) 47 (Average) 52 (Average) 12/04/2023 [facility] Anxiety PROMIS Anxiety T-Score 47 (within normal limits) 03/15/2023 09/05/2023 12/04/2023 [facility] Sleep Disturbance PROMIS Sleep Disturbance T-Score 52 (within normal limits) 46 (within normal limits) 46 (within normal limits) 12/04/2023 [facility] NEUROQOL COGNITIVE T-SCORE PROMIS Neuroqol Cognitive T-Score 54 (within normal limits) REVIEW OF SYSTEMS: +right foot pain, denies chest pain Physical Exam BP 110/58 (BP Site: Left Arm, BP Position: Sitting, BP Cuff Size: Large Adult) Pulse 62 Wt 85.9 kg (189 lb 6 oz) SpO2 98% BMI 26.41 kg/m GENERAL: Well groomed, well appearing, no acute distress, pleasant, cooperative NEURO: Non-antalgic gait, alert and oriented x 3 EXT: Normal extremities, no color change right foot, full ROM right foot/ankle PREVIOUS STUDIES: Pertinent labs/imaging: Latest Ref Rng 05/03/2023 Cholesterol, Total <200 mg/dL 131 Triglyceride <150 mg/dL 49 HDL Cholesterol >39 mg/dL 40 Non HDL Cholesterol <130 mg/dL 91 Fasting Time hrs 12 VLDL Cholesterol <30 mg/dL 10 TC:HDL Ratio <5.10 3.28 LDL Cholesterol <100 mg/dL 81 LDL:HDL Ratio <2.54 2.03 Latest Ref Rng 03/29/2023 WBC 3.70 - 11.00 k/uL 8.00 RBC 4.20 - 6.00 m/uL 4.57 Hemoglobin 13.0 - 17.0 g/dL 14.6 Hematocrit 39.0 - 51.0 % 41.5 MCV 80.0 - 100.0 fL 90.8 MCH 26.0 - 34.0 pg 31.9 MCHC 30.5 - 36.0 g/dL 35.2 RDW-CV 11.5 - 15.0 % 11.7 Platelet Count 150 - 400 k/uL 178 Latest Ref Rng 03/29/2023 Protein, Total 6.3 - 8.0 g/dL 6.6 Albumin 3.9 - 4.9 g/dL 4.2 Calcium 8.5 - 10.2 mg/dL 9.4 Bilirubin, Total 0.2 - 1.3 mg/dL 0.6 Alkaline Phosphatase 38 - 113 U/L 69 AST 14 - 40 U/L 20 ALT 10 - 54 U/L 23 Glucose 74 - 99 mg/dL 99 BUN 9 - 24 mg/dL 15 Creatinine 0.73 - 1.22 mg/dL 1.02 Sodium 136 - 144 mmol/L 135 (L) Potassium 3.7 - 5.1 mmol/L 4.5 Chloride 97 - 105 mmol/L 100 CO2 22 - 30 mmol/L 27 Latest Ref Rng 04/21/2022 05/01/2022 03/29/2023 Hemoglobin A1C 4.3 - 5.6 % 4.8 Estimated Average Glucose mg/dL 91 Vitamin B12 232 - 1,245 pg/mL 933 Folate >4.7 ng/mL >20.0 Vitamin B1 (TDP), Whole Blood 84.3 - 213.3 nmol/L 243.2 (H) Magnesium 1.7 - 2.3 mg/dL 1.9 TSH 0.270 - 4.200 mIU/L 3.080 IMPRESSION: Mr. 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 He was referred by Dr. Whittington for a wellness and preventive medicine consultation regarding foot pain. A wellness and preventive medicine approach was discussed with the patient including risks, benefits, and alternatives. He agrees to proceed. It was emphasized that he should continue with all of her current treating caregivers's recommendations. Treatment plan/recommendations: (M79.2) Neuropathic pain of right foot (primary encounter diagnosis) Comment: curcumin helping some Plan: - CONSULT FOR ACUPUNCTURE - May continue curcumin - May trial ALA (G40.109) Focal motor seizure (HCC) Comment: on keppra, no seizure in 2 years (M51.36) Other intervertebral disc degeneration, lumbar region Comment: reviewed XR and MRI 2020 Plan: CONSULT FOR ACUPUNCTURE It has been a pleasure to see Mr. Watson Rodriguez for a wellness and preventive medicine consultation. I have asked Watson Rodriguez to return to see me 6 mo or prn. Thank you for the referral or interest in caring for your whole body and mind. I spent a total of 60 minutes on the date of the service which included preparing to see the patient, [id number] patient care, completing clinical documentation, obtaining and/or reviewing separately obtained history, performing a medically appropriate examination, counseling and educating the patient/family/caregiver, ordering medications, tests, or procedures, communicating with other HCPs (not separately reported), independently interpreting results (not separately reported), and communicating results to the patient/family/caregiver. documented in this encounter [facility] 11-09-2023 Telephone encounter Note Scheduled 12/07/[address] Ley. Amna Quinones RN [facility] 11-09-2023 Miscellaneous Notes Scheduled 12/07/[address] Ley. Amna Quinones RN 1st attempt LVM to schedule with general surgery Ordered Cscope Patient calls to report that he was going to follow with Dr. Petersno for Colonoscopy but he is no longer scheduling any appointments. Discussed at appointment on 10/31/[address] Whittington per patient. Last Colonoscopy was around one year ago but Dr. Peterson recommended he have it repeated in 1 year d/t a large polyp per patient. Pended consult. Needs diagnosis. Patient wants to schedule with Dr. Ley. Amna Quinones RN documented in this encounter [facility] 11-05-2023 Telephone encounter Note 1st attempt LVM to schedule with general surgery [facility] 11-05-2023 Telephone encounter Note Ordered Cscope [facility] 11-05-2023 Telephone encounter Note Patient calls to report that he was going to follow with Dr. Peterson for Colonoscopy but he is no longer scheduling any appointments. Discussed at appointment on 10/31/[address] Whittington per patient. Last Colonoscopy was around one year ago but Dr. Peterson recommended he have it repeated in 1 year d/t a large polyp per patient. Pended consult. Needs diagnosis. Patient wants to schedule with Dr. Ley. Amna Quinones RN [facility] 10-31-2023 History of Presen t illness Narrative Patient presents with: 6 Month Exam HPI: Patient presents today for office visit for 6 month follow up. Still using CPAP nightly Follows with sleep med Benefiting from use and should continue therapy Follows with Neurology. Saw Dr. Devlin Recent brain MRI in july. Meningioma stable Still with pain in right foot. Pain is every day for several hours of the day. Not affecting sleeping. Has seen Dr. Carrillo multiple times. Workup up neg. Completed PT and did orthotics. Using Tumeric as an inflammatory in addition to ibuprofen prn with some relief They are thinking it could be related to his meningioma and they are considering alpha lipoic acid Mentions popping sound in right hip with movement. PT could not identify. Patient feels maybe correlates to the pain in his right foot. Denies any pain in right hip. Has some occasional lower back pain. No trauma. Did have MRIs of his lower back done in 2020 Has multiple levels of ddd. Is not really bothering him so we elected to follow. Was seeing Urology in past No longer needs to see urology. Would like pcp to take over rx of sildenafil No seizures. No issues with cholesterol He is seeing Dr Samayoa in April for his heart. No chest paain. Latest Ref Rng 03/29/2023 05/03/2023 WBC 3.70 - 11.00 k/uL 8.00 RBC 4.20 - 6.00 m/uL 4.57 Hemoglobin 13.0 - 17.0 g/dL 14.6 Hematocrit 39.0 - 51.0 % 41.5 MCV 80.0 - 100.0 fL 90.8 MCH 26.0 - 34.0 pg 31.9 MCHC 30.5 - 36.0 g/dL 35.2 RDW-CV 11.5 - 15.0 % 11.7 Platelet Count 150 - 400 k/uL 178 MPV 9.0 - 12.7 fL 8.6 (L) Neut% % 78.6 Abs Neut (ANC) 1.45 - 7.50 k/uL 6.30 Lymph% % 11.5 Abs Lymph 1.00 - 4.00 k/uL 0.92 (L) Vinton% % 8.8 Abs Vinton <0.87 k/uL 0.70 Eosin% % 0.5 Abs Eosin <0.46 k/uL 0.04 Baso% % 0.3 Abs Baso <0.11 k/uL <0.03 Immature Gran % % 0.3 IMMATURE GRANS (ABS) <0.10 k/uL <0.03 NRBC /100 WBC 0.0 Absolute nRBC <0.01 k/uL <0.01 DTYPE Auto Protein, Total 6.3 - 8.0 g/dL 6.6 Albumin 3.9 - 4.9 g/dL 4.2 Calcium 8.5 - 10.2 mg/dL 9.4 Bilirubin, Total 0.2 - 1.3 mg/dL 0.6 Alkaline Phosphatase 38 - 113 U/L 69 AST 14 - 40 U/L 20 ALT 10 - 54 U/L 23 Glucose 74 - 99 mg/dL 99 BUN 9 - 24 mg/dL 15 Creatinine 0.73 - 1.22 mg/dL 1.02 Sodium 136 - 144 mmol/L 135 (L) Potassium 3.7 - 5.1 mmol/L 4.5 Chloride 97 - 105 mmol/L 100 CO2 22 - 30 mmol/L 27 Anion Gap 9 - 18 mmol/L 8 (L) eGFR >=60 mL/min/1.73m 82 Cholesterol, Total <200 mg/dL 131 Triglyceride <150 mg/dL 49 HDL Cholesterol >39 mg/dL 40 Non HDL Cholesterol <130 mg/dL 91 Fasting Time hrs 12 VLDL Cholesterol <30 mg/dL 10 TC:HDL Ratio <5.10 3.28 LDL Cholesterol <100 mg/dL 81 LDL:HDL Ratio <2.54 2.03 Magnesium 1.7 - 2.3 mg/dL 1.9 TSH 0.270 - 4.200 mIU/L 3.080 PSA Screening <2.60 ng/mL 2.14 Legend: (L) Low MEDICATIONS: Current Outpatient Medications Medication Sig CPAP/BIPAP/OTHER Type .CPAPSettings into a note to see current settings/supplies/DME information. clonazePAM orally disintegrating (KLONOPIN WAFER) 1 mg disintegrating tablet DISSOLVE 1 TABLET IN MOUTH THREE TIMES DAILY NEEDED (SEIZURES) FOR UP TO 30 DAYS sildenafil (VIAGRA) 100 mg tablet Take 1 pill 1 hour prior to sexual activity on empty stomach CPAP/BIPAP/OTHER MASK REFITTING. Continue Auto CPAP with current settings of 5-20 cm H2O. Lifetime supplies for Auto CPAP, including patient preferred mask, head gear, heated tubing, humidity, filters, chin strap. Dx: Obstructive Sleep Apnea G47.33 DME: [facility] ph [phone] fax# [phone] Fax download reports to [phone]. levETIRAcetam (KEPPRA) 500 mg tablet Take 2 tablets by mouth two times a day. dexAMETHasone (DECADRON) 2 mg tablet 2 mg the day prior to the flight, the day of the flight and the day after the flight. CPAP Initiate Auto PAP @ 5-20 cm of water with humidification. Mask (per patient preference) optional chin strap (if indicated) , filters, tubing, humidifier and lifetime supplies. rosuvastatin (CRESTOR) 40 mg tablet Take 40 mg by mouth. Multivitamin capsule Take 1 capsule by mouth once daily. aspirin(ADULT LOW DOSE ASPIRIN 81 MG TAB, DELAYED RELEASE) Take one(1) tablet daily. No current facility-administered medications for this visit. ALLERGIES: ALLERGIES Allergen Reactions Atorvastatin Myalgia, Other: See Comments PAST MEDICAL HISTORY Diagnosis Date Acute myocardial infarction of lateral wall (HCC) 2012 s/p LAD stent Benign neoplasm of colon Benign neoplasm of meninges (HCC) 08/02/2020 Hyperlipidemia Seizure (HCC) focal motor PAST SURGICAL HISTORY Procedure Laterality Date COLONOSCOPY FLX DX W/COLLJ SPEC WHEN PFRMD 10/29/2009 Colonoscopy HEMORRHOID;BAND LIGAT, SNGL/MUL 12/2016 PAST SURGICAL HISTORY OF Left 04/2017 left knee arthroscopy - meniscus PAST SURGICAL HISTORY OF 01/2013 PTCA x 1 - LAD FAMILY HISTORY Problem Relation Age of Onset Colon Cancer Mother ascending large intestine removed 2008 at 80 years old Prostate Cancer Brother Colon Cancer Maternal Grandmother portion lower colon removed 60 years old, colostomy Social History Tobacco Use Smoking status: Never Smokeless tobacco: Never Vaping Use Vaping Use: Never used Substance Use Topics Alcohol use: No Drug use: No Reviewed current medications, allergies, past medical history, surgical history, family history and social history today. REVIEW OF SYSTEMS No issues with bowels or falls. All other reviewed and negative other than HPI. HEALTH MAINTENANCE: Reviewed health maintenance issues today and recommended the following in detail. RSV Vaccine(1 - 1-dose 60+ series) Never done Pneumococcal Vaccine: 65+(1 of 1 - PCV) Never done Advance Directive Discussion - is is surrogate. Behavioral Health Screening -Behavioral Health Screening PHQ-2 Score: 0 (Lower risk for depression) EMANUEL-2 Score: 0 (Lower risk for anxiety) Recommendation: no further intervention at this time Covid-19 Vaccine(2022- season) due on 08/25/2023 DTaP,Tdap,Td Vaccine(2 - Td or Tdap) due on 09/16/2023 Colorectal Cancer Screening -done last year. Had polyp. Will be seeing Dr Quezada. VITALS: BP 104/58 Pulse (!) 59 Ht 180.3 cm (5' 11) Wt 84.4 kg (186 lb) SpO2 99% BMI 25.94 kg/m Last 4 Encounter Wt Readings: Date: Wt: 09/11/2023 84.4 kg (186 lb) 09/10/2023 84.6 kg (186 lb 8.2 oz) 04/25/2023 85.5 kg (188 lb 9.6 oz) 03/29/2023 86.1 kg (189 lb 12.8 oz) PHYSICAL EXAMINATION: General appearance: Well appearing, alert, in no acute distress, well-hydrated, well nourished. Skin: Skin color, texture, turgor normal, no suspicious rashes or lesions Head: Normocephalic, no masses, lesions, tenderness or abnormalities Back: Normal exam Lungs: Lungs clear to auscultation. No wheezing, rhonchi, rales Heart: RRR without murmur, gallop, or rubs. No ectopy Abdomen: Normal abdominal exam, Abdomen soft, non-tender. Bowel sounds normal. No masses, organomegaly Extremities: No deformities, edema, skin discoloration, clubbing or cyanosis. Good capillary refill. ASSESSMENT/PLAN: 1. Meningioma (HCC) - ICD9: 225.2, ICD10: D32.9 (primary diagnosis) - per neurological. He would like to start with a holistic physician about diet and nutrition. - CONSULT TO WELLNESS PHYSICIAN 2. Brain edema (HCC) - ICD9: 348.5, ICD10: G93.6 - continue as above. - CONSULT TO WELLNESS PHYSICIAN 3. Seizure (HCC) - ICD9: 780.39, ICD10: R56.9 - CONSULT TO WELLNESS PHYSICIAN 4. Coronary artery disease involving benton coronary artery of benton heart without angina pectoris - ICD9: 414.01, ICD10: I25.10 - per cardiology. 5. Medication monitoring encounter - ICD9: V58.83, ICD10: Z51.81 - COMPLETE BLOOD COUNT AND DIFFERENTIAL - COMPREHENSIVE METABOLIC PANEL - LEVETIRACETAM Breanne Whittington MD documented in this encounter [facility] 10-01-2023 Telephone encounter Note Opened in error. En Gibson PT [facility] Work Phone: 10-01-2023 Miscellaneous Notes Opened in error. En Gibson PT documented in this encounter [facility] 09-26-2023 History of Presen t illness Narrative ESTABLISHED PATIENT DISTANCE HEALTH VISIT Encounter completed via virtual visit (audio and video) using [employer] software* Provider location during distance health encounter: [facility] Patient location during distance health encounter: Home I have communicated my name and active licensure. The patient's identity and physical location were verified at the time of this visit. Either the patient or their legal help desk representative has been informed of the risks and benefits of -- and alternatives to -- treatment through a remote evaluation and consents to proceed with the evaluation remotely. Date of last clinic visit :07/19/2020 Current neuromuscular medicine diagnosis(es): none (meningioma s/p gamma knife) Plan at last visit: - MRI brain wo contrast to evaluate for stroke - MRA brain and MRA carotid wwo contrast for vessel imaging - Continue ASA/plavix and atorvastatin - Continue local PT - Follow up in cerebrovascular clinic Subjective/Interval developments: Patient was seen 07/2020 for RLE weakness and found to have UMN features. Sudden onset led to concern for stroke. 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 Keppra 500 mg twice daily was started and referral to neurosurgery was placed. Keppra was increased by NSG to 1g twice daily. Mass lesion was treated with gamma knife. He was recently seen by neuro-oncology, at which time he reported right foot painful parasthesias. This was felt to potentially be related to his known mass lesion, but patient expressed concern for a peripheral nerve lesion as the etiology. Patient reports he has had issues with seizure prevention and now takes clonazepam about once a week. He had seizures after coming off dexamethasone. These would start with a tightness in the arch of the right foot. He also has residual changes on MRI (radiation necrosis vs paratumor edema). Patient reports that he has lingering right foot pain which has been present from the arch forward. He reports a cramp in the arch of the foot which then migrates out to the toes. This is present to some degree daily (variable level of pain from 2 to 9, often 5 or 6 sometime during the day). He describes the pain and numbing, burning and constant though variable. He feels there is a loss of sensation on the ball of the foot and plantar surface of the toes. IT feels like the toes are swollen ever though they are not swollen. The surface of the foot is normal - the symptoms are deep to the skin surface. No symptoms on the dorsal surface of the foot. He feels he has RLE weakness but was told by PT that his strength is preserved. He has been seeing Dr. Sutton and Dr. Devlin as well as his PCP. He went to podiatry about this. He reports he has had a full work up on the right foot including EMG and scanning. He had a foot injection which did not help. He feels the right foot symptoms are worse with emotional stress or a loud environment. He is aware that if he is on a screen like a computer for a long time or sitting for a long time he will feel worse. He has no symptoms overnight and when he first arises in the morning for about an hour. He is better with rest or elevation of the foot. Clonazepam also reduces pain symptoms - takes this due to concern that symptoms represent a sensory aura. He saw PT and got orthotics which he feels are helpful. He had a chiropractic procedure including an auricular procedure and he feels his best months were the 2 months after this procedure. He has been using a topical BenGay and this has been helpful. Heat makes him feel worse. He tried a TENS unit in the last month and he is not sure this has helped. He retired in 05/2023 so is not on the computer as much. He is still able to walk 8-10K steps per day. He has support with a TBI/stroke/tumor support group called [employer]. He has a popping sound in his hip. He was diagnosed in childhood with spina bifida occulta and thinks this might be related. Objective: No conversational dyspnea Ext: nl LE joint ROM Neurologic examination: MS: alert and responsive, language intact CN: face symmetrical, hearing grossly intact, no dysarthria Motor: nl bulk: able to flex hips, extend knees, rotate ankles, and arise from a chair without using hands Sensory: patient reports light touch intact throughout BLE including R plantar surface of foot Cerebellar: HTS intact bilaterally Gait: intact including stress gait, Romberg negative Interval studies review: EMG 01/06/2022: Electrodiagnostic examination of the right lower extremity demonstrates no significant abnormalities. There is no significant evidence of tibial neuropathy, other compression neuropathy, lumbosacral radiculopathy, no large fiber polyneuropathy. Assessment and Plan: Watson Rodriguez is a 63 year-old man who had sudden onset RLE function changes 05/02/2020. CT/MRI brain showed left parasaggital meningioma, now s/p gamma knife. He has ongoing focal seizure management with Keppra and prn clonazepam. He reports that since stopping dexamethasone he has had forefoot burning pain which is deep and not associated with sensory loss. Prior EMG RLE (12/2021) was normal. Limited virtual exam is unrevealing including sensory examination. Discussed with patient that I doubt a peripheral nerve (radiculopathy or peripheral nerve injury) based on absence of sensory loss and previously normal EMG. Possible symptoms are related to known meningioma. Reasonable to try al[bruno lipoic acid 400 mg twice daily for symptom management. No further testing. The duration of this [facility] appointment visit was 36 minutes (4:35-5:11 PM). At least 50% of this time was spent in counseling, explanation of diagnosis, planning of further management, and coordination of care. A further 5 mins were spent with documentation comprising this note. Lakisha Junior MD Staff, [facility] Neurological Start Electronically signed September 26, 2023 documented in this encounter [facility] 09-18-2023 History of Presen t illness Narrative Summary: Communication, with the patient regarding brain imaging intervals I spoke to the patient, and informed him, that Dr. Sutton also agrees, with longer intervals MRIs, to be done in a years time. He asked me whether any other comments were made by Dr. Sutton regarding the edema, I told him that the communication was focused on the imaging intervals. I told the patient, that if he wanted to hear from Dr. uStton about his question, he could certainly, call Dr. Sutton's office. From my perspective, the MRI is stable, the edema has not changed significantly, and in view that he is improving clinically, from my perspective I told him that there is no need to have any other interventions, I.e. systemic therapy, like MAMI, and to rather continue clinical and imaging surveillance. He wishes, to have an appointment with me, in the interim, and we will organize a virtual visit, in around 6 months time from the last visit. PLAN: -Return visit, virtually, in 6 months time from last visit. -Brain MRI w and /o contrast in 12 months time, from the last MRI, 08/31/2023 -Return visit within a week of the MRI in 12 months time - in person. The patient indicates understanding of these issues and agrees with the plan. Yancy Centeno MD CC CC -Trev Sutton MD, Neurosurgery, [facility], [facility], [facility] documented in this encounter [facility] 09-11-2023 Telephone encounter Note Faxed order, office notes to: DME name: [facility] fax # [phone] DME Faxed info in patient's chart. [facility] 09-11-2023 Miscellaneous Notes Faxed order, office notes to: DME name: [facility] fax # [phone] DME Faxed info in patient's chart. documented in this encounter [facility] 09-11-2023 Instructions Miguelangel Spence APRN.[employer] - 09/11/2023 2:14 PM EDT Images from the original note were not included. PLAN: - Continue Auto CPAP at current settings of 5-20 cmH2O. - Keep up the great work! - If leak is still high after getting new supplies - you may want to try the new AirFit F40 mask - Remember to clean your mask and equipment regularly, as directed. - Avoid use of ozone manager floor, SoClean devices, or UV cleaning devices - Avoid using alcohol or alcohol-containing products on your mask, as this may compromise the integrity of the mask materials and contribute to leak issues - Use only baby shampoo and water, mild dish soap and water, or CPAP-specific wipes to clean your supplies. - You should be eligible for new supplies approximately every 3-6 months, depending on your insurance coverage. Contact your Durable Medical Equipment (DME) company for new supplies as needed. - Let me know if anything else is needed - Follow-up yearly, sooner if needed (virtual is fine) PAP Supply Guidelines Below are the guidelines for reordering your supplies. You will be responsible for your deductible, co-payments, and out of pocket expenses. Item Medicare & Commercial Insurance Medicaid & HCAP Nasal Mask (no headgear) 1 every 3 months 1 per year Nasal Mask Cushion 1 every month 2 per year Full Face Mask (no headgear) 1 every 3 months 1 per year Full Face Mask Cushion 1 every month *Self-Pay Nasal Pillows 2 every month 2 per year Headgear 1 every 6 months 1 per year Chin Strap 1 every 6 months 2 per year Tubing 1 every 3 months 1 per year Filters: Reusable 1 every 6 months 4 per year Filters: Disposable 2 every month 1 per month Humidifier Chamber(disposable) 1 every 6 months *Self-Pay Contacting the Sleep Disorders Center: - Appointments can be scheduled through the central scheduling system for the Neurological Start at [phone]. - Call the Sleep Disorders Center at [phone] for questions. - May use Message My Doc through [email or web address] for questions. - [facility] website: [email or web address] documented in this encounter [facility] 09-11-2023 History of Presen t illness Narrative Images from the original note were not included. [facility] Follow up/ Established patient visit Visit performed virtually, with the patient's permission. I have communicated my name and active licensure. The patient's identity and physical location were verified at the time of this visit. Either the patient or their legal help desk representative has been informed of the risks and benefits of -- and alternatives to -- treatment through a remote evaluation and consents to proceed with the evaluation remotely. Date of last visit : 04/25/2023 Per last visit: IMPRESSION: Mell on cpap (primary encounter diagnosis) Watson Rodriguez is a very pleasant 63 year old male with PMH of MELL on CPAP, intracranial meningioma, seizure, CAD, nonrheumatic aortic valve stenosis, HLD, history of AK, MVP, myocardial ischemia, presence of coronary angioplasty implant and graft, tinnitus, bilateral hearing loss, colonic polyps, left renal atrophy, and stage I CKD. A Home Sleep Test (HST) performed on 01/21/2021 revealed at least moderate MELL (AHI of 19.2) that was associated with a minimum oxygen saturation of 87%; (3% hypopnea scoring; BMI 30.9). He was set up with auto CPAP ( 10) on 03/04/2021 via [employer]. He was having mild rAHI and high mask leak. He was changed from DreamWear FFM to Viri FFM, however, Viri FFM was not well-tolerated due to pressure against nares/cheeks (though mask leak was somewhat lower). He switched back to Dreamwear FFM. Will try changing from medium headgear to small headgear for the DreamWear FFM, but this has not resulted in any significant change in mask leak. Small headgear has also not been well-tolerated, due to causing sore against cheekand tenderness of nasal septum. He had to loosen the straps slightly for comfort. He also states that the mask seems to slip up over his chin/lower lip during the night with a smaller headgear, which seems to pull the mask up higher. Per download from 03/25/2023-04/23/2023, patient uses PAP therapy an average of 6.75 hours, and PAP use is >/= 4 hours on 97% of nights; Current setting of 5-20 cmH2O is controlling MELL well (residual AHI 3.4). He c/o waking 1-2 hours into sleep, and he may benefit from a pressure increase. However, we will first attempt to improve mask leak. PLAN: - Continue Auto CPAP at current settings of 5-20 cmH2O. - Sleep apnea is presently well controlled! Keep up the great work! - I will order a mask fitting through [employer], and see if this is covered by insurance - Please contact [employer] to arrange mask fitting. - You may benefit from trying the ResMed AirFit F30 I mask, which is similar to the DreamWear full face mask - I will see if we have a sample of this mask at the [facility], and contact you to arrange pickup if we do - I'll send you a [email or web address] message this afternoon letting you know - Remember to clean your mask and equipment regularly, as directed. - Avoid use of ozone manager floor, SoClean devices, or UV cleaning devices - Avoid using alcohol or alcohol-containing products on your mask, as this may compromise the integrity of the mask materials and contribute to leak issues - Use only baby shampoo and water, mild dish soap and water, or CPAP-specific wipes to clean your supplies. - You should be eligible for new supplies approximately every 3-6 months, depending on your insurance coverage. Contact your Durable Medical Equipment (DME) company for new supplies as needed. - Follow up scheduled for 6 months. - Will follow-up sooner if needed - If you are still having trouble staying asleep (particularly during first couple hours of sleep) we can discuss pressure increase - we want to improve leak first Miguelangel Spence APRN.[employer] Here for follow up for MELL on CPAP Interval history : He has new insurance (Medicare) and was told aump-hp-ppsl visit is needed for new supplies. His mask is worn out and leaking more frequently. rAHI has been elevated with higher mask leak. SLEEP APNEA A Home Sleep Test (HST) performed on 01/21/2021 revealed at least moderate MELL (AHI of 19.2) that was associated with a minimum oxygen saturation of 87%; (BMI 30.9). Sleep apnea type : MELL, Most Recent Apnea-Hypopnea Index (AHI): 19.2 Treatment : PAP therapy DME: [facility] PAP History: Current PAP settin-20 cm H2O. Difficulties with AutoPAP: Finds himself waking 1-2 hours into sleep to void Reviewed objective PAP compliance data: Yes Mask type: full face mask (Viri FFM and Dreamwear FFM) Mask issues: Viri caused pressure along sides of nose ; Dreamwear has high leak Uses chin strap: No Uses ramp function: Yes x 5 mins Uses humidity: Yes, distilled There is a perceived benefit by the patient - no longer having nocturnal seizures; improved sleep PATIENT-ENTERED QUESTIONNAIRE SLEEP SCORES 09/05/2023 Sleep Questions Reason for visit: Sleep apnea On average, hours of sleep in 24 hours: 7 Average hours of CPAP per night: 7 Percent of nights CPAP used at least 4 hours: 100 Accidents or near accidents due to drowsy drivin 11/16/2022 03/15/2023 09/05/2023 [place] Sleepiness Scale Score 4 (No daytime sleepiness) 4 (No daytime sleepiness) 3 (No daytime sleepiness) 11/16/2022 03/15/2023 09/05/2023 PROMIS CAT Sleep Disturbance PROMIS Sleep Disturbance T-Score 49 (within normal limits) 52 (within normal limits) 46 (within normal limits) PROMIS Sleep Disturbance Percentile 54 42 66 07/16/2020 Insomnia Severity Index Score 5 03/07/2021 Restless Leg Syndrome Score 7 11/16/2022 03/15/2023 09/05/2023 PHQ-9 Score 1 1 1 03/15/2023 04/23/2023 08/05/2023 PROMIS Global Health - (T-Scores - the mean of general population = 50. Five points is a clinically meaningful difference.) Physical T-Score 44.9 44.9 44.9 Mental T-Score 56 45.8 53.3 PMH, PSH, SH: Reviewed SLEEP RELATED ROS Review of Systems Respiratory: Negative for cough. Genitourinary: Positive for nocturia. Skin: Positive for rash (Irritation of nasal septum). ALLERGIES Allergen Reactions Atorvastatin Myalgia, Other: See Comments CURRENT MEDICATIONS: clonazePAM orally disintegrating (KLONOPIN WAFER) 1 mg disintegrating tablet DISSOLVE 1 TABLET IN MOUTH THREE TIMES DAILY NEEDED (SEIZURES) FOR UP TO 30 DAYS sildenafil (VIAGRA) 100 mg tablet Take 1 pill 1 hour prior to sexual activity on empty stomach CPAP/BIPAP/OTHER MASK REFITTING. Continue Auto CPAP with current settings of 5-20 cm H2O. Lifetime supplies for Auto CPAP, including patient preferred mask, head gear, heated tubing, humidity, filters, chin strap. Dx: Obstructive Sleep Apnea G47.33 DME: [facility] [phone] fax# [phone] Fax download reports to [phone]. levETIRAcetam (KEPPRA) 500 mg tablet Take 2 tablets by mouth two times a day. dexAMETHasone (DECADRON) 2 mg tablet 2 mg the day prior to the flight, the day of the flight and the day after the flight. CPAP Initiate Auto PAP @ 5-20 cm of water with humidification. Mask (per patient preference) optional chin strap (if indicated) , filters, tubing, humidifier and lifetime supplies. rosuvastatin (CRESTOR) 40 mg tablet Take 40 mg by mouth. Multivitamin capsule Take 1 capsule by mouth once daily. aspirin(ADULT LOW DOSE ASPIRIN 81 MG TAB, DELAYED RELEASE) Take one(1) tablet daily. PHYSICAL EXAMINATION: Vital signs not obtained d/t virtual visit. General appearance: NAD, well groomed HEENT: Normocephalic, atraumatic Neuro: Awake, alert, memory grossly intact, speech is fluent Respiratory: No increased work of breathing; able to speak in complete sentences Psych: Appropriate, normal affect IMPRESSION: Mell on cpap (primary encounter diagnosis) Symptomatic localization-related epilepsy (hcc) History of myocardial infarction Watson Rodriguez is a very pleasant 63 year old male with PMH of MELL on CPAP, intracranial meningioma, seizure, CAD, nonrheumatic aortic valve stenosis, HLD, history of AK, MVP, myocardial ischemia, presence of coronary angioplasty implant and graft, tinnitus, bilateral hearing loss, colonic polyps, left renal atrophy, and stage I CKD. HST 01/21/2021 revealed at least moderate MELL (AHI of 19.2) that was associated with a minimum oxygen saturation of 87%; (BMI 30.9). He was set up with auto CPAP ( 10) on 03/04/2021 via [employer]. He has been using and benefiting from PAP therapy since that time. (In July-August 2020, he had a seizure during sleep. Following gamma-knife surgery in August 2020, he started having more seizures. He was started on Keppra and evaluated for MELL. Since starting PAP tx, his nighttime seizures have resolved.) His mask is worn out and leaking more frequently. rAHI has been elevated with higher mask leaks. He uses Dreamwear FFM w/ medium headgear. Small headgear was not tolerated. Viri FFM was not tolerated. We reviewed mask alternatives. If leaks persists after replacing supplies, he may benefit from changing masks. PLAN: - Continue Auto CPAP at current settings of 5-20 cmH2O. - Excellent compliance - Keep up the great work! - AHI is mildly elevated, likely due to high mask leak - If leak is still high after getting new supplies - you may want to try the new AirFit F40 mask - Remember to clean your mask and equipment regularly, as directed. - Avoid use of ozone manager floor, SoClean devices, or UV cleaning devices - Avoid using alcohol or alcohol-containing products on your mask, as this may compromise the integrity of the mask materials and contribute to leak issues - Use only baby shampoo and water, mild dish soap and water, or CPAP-specific wipes to clean your supplies. - You should be eligible for new supplies approximately every 3-6 months, depending on your insurance coverage. Contact your Durable Medical Equipment (DME) company for new supplies as needed. - Let me know if anything else is needed - Follow-up yearly, sooner if needed (virtual is fine) Miguelangel Spence APRN.[employer] I spent a total of 28 minutes on the date of the service which included preparing to see the patient, [id number] patient care, completing clinical documentation, obtaining and/or reviewing separately obtained history, performing a medically appropriate examination, counseling and educating the patient/family/caregiver, ordering medications, tests, or procedures, and communicating results to the patient/family/caregiver. documented in this encounter [facility] 09-10-2023 History of Presen t illness Narrative Images from the original note were not included. Neurological Start BRAIN TUMOR CENTER NEURO-ONCOLOGY FOLLOW UP CLINIC VISIT NOTE The patient is accompanied by his Damaris who is a nurse. 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 Work up for lumbar spine cause non conclusive. 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 His right leg still numb and weakness. High step gait to avoid dragging his right lower extremity. He had GK-SRS to the tumor (25Gy/5fx) from 08/16/2020-08/20/2020. IMPORTANT POINTS OF THE PATIENT'S HISTORY AND PROGRESSION: MENINGIOMA DIAGNOSIS: Mr. Wilder presented back on April 14, 2020, with a complaint of right leg numbness and weakness, and foot drop, this happened after the day before doing heavy lifting, by caring an object waiting around 20 pounds, and shoveling snow. He was evaluated, initially back in April 2020 he had images of the lumbosacral region which were not revealing, but he was diagnosed with a presumptive radiculopathy at the level of 5, for which he underwent an EMG that was unrevealing also, and he went on to receive an L5 transforaminal injection without any help. He then was evaluated, and there is cerebrovascular neurology clinic, on July 19, 2020 as he was not getting better. At that time, because the event happened acutely, the working diagnosis of a stroke was given. Brain MR images performed on July 27, 2020 revealed rather a large parasagittal mass arising from the falx, involving both sides, more the left than the right, centered in the frontal regions and parietal lobe levels. Radiologically, this tumor was most compatible, with a meningioma. 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 This finding, correlated with the patient's presentation, and the weakness and paresthesias, may have been due to an acute event of a seizure back on April 14, 2020, however the leg weakness, also as a result of the tumor. The patient was referred to see Dr. Sutton, from neurosurgery at the [facility]. Dr. Sutton recommended gamma knife which he received, between August 16 through August 20, 2020. History of Present Illness: Watson Rodriguez is a 61 year old male investigated for right leg numbness and weakness (couldn't stand on it) April 2020. Work up for lumbar spine cause non conclusive. 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 His right leg still numb and weakness. High step gait to avoid dragging his right lower extremity. He had GK-SRS to the tumor (25Gy/5fx) from 08/16/2020-08/20/2020. -His main concern is tinnitus, that is very bothersome and is affecting his quality of life quite significantly. IMPORTANT POINTS OF THE PATIENT'S HISTORY AND PROGRESSION: 1 - MENINGIOMA PRESUMED DIAGNOSIS: Left parasagittal meningioma, s/p (08/16/2020-08/20/2020) GKSRS (25Gy/5fx) HAS NOT HAD SURGERY Brain MR is Jan 26, 2022 Results MRI BRAIN WO/W IVCON (Order [id number]) Patient Info Patient Name Sex Watson Rose ([id number]) Male 1960 01/26/2022 12:11 PM - Radiology, Oru In Impression IMPRESSION: Minimal decrease in size of the parafalcine meningioma compared to the prior exam. Adjacent T2/FLAIR hyperintense vasogenic edema/posttreatment changes in the left parietal centrum semiovale and lopez radiata are unchanged. Follow up with Dr. Sutton Feb 06, 2022 INTERIM EVENTS 02/08/22 The patient tells me that Dr. Sutton felt that the peritumoral edema is causing his seizures, and that Dr. Sutton felt that bevacizumab could help the peritumoral edema, and may help his seizures, and his discomfort from the right leg. INTERIM EVENTS 04/24/2022 MRI from 04/21/2022. No change per neuroradiology report. I also reviewed the image, and I also se no change in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 Grandmother portion lower colon removed 60 years old, colostomy Social History Tobacco Use Smoking status: Never Smokeless tobacco: Never Vaping Use Vaping Use: Never used Substance Use Topics Alcohol use: No Drug use: No Allergies: Atorvastatin Current Outpatient Medications on File Prior to Visit Medication Sig levETIRAcetam (KEPPRA) 500 mg tablet Take 2 tablets by mouth twice daily. midazolam (NAYZILAM) 5 mg/spray (0.1 mL) nasal spray Use 1 spray in one nostril as needed for seizures. May repeat dose in alternate nostril after 10 minutes based on response and tolerability. Only take for seizures lasting more than 3 minutes or more than 3 seizures in an hour clonazePAM orally disintegrating (KLONOPIN WAFER) 1 mg disintegrating tablet Dissolve 1 tablet under the tongue three times daily as needed (seizures) for up to 30 days. lacosamide (VIMPAT) 100 mg tab Take 200 Mg BID sildenafil (VIAGRA) 100 mg tablet Take 1 pill 1 hour prior to sexual activity on empty stomach dexAMETHasone (DECADRON) 2 mg tablet 2 mg the day prior to the flight, the day of the flight and the day after the flight. CPAP Initiate Auto PAP @ 5-20 cm of water with humidification. Mask (per patient preference) optional chin strap (if indicated) , filters, tubing, humidifier and lifetime supplies. rosuvastatin (CRESTOR) 40 mg tablet Take 40 mg by mouth. Multivitamin capsule Take 1 capsule by mouth once daily. aspirin(ADULT LOW DOSE ASPIRIN 81 MG TAB, DELAYED RELEASE) Take one(1) tablet daily. No current facility-administered medications on file prior to visit. Review of systems: SEE ABOVE Constitutional: No recent fever or weight loss. Eyes: No history of glaucoma or cataracts. ENMT: No recent ear infection, nasal congestion, mouth sores or sore throat. See HPI CV: No history of chest pain, palpitations Right leg swelling, SEE HPI Respiratory: No history of SOB, asthma or recent cough. Gastrointestinal: No history of nausea, vomiting, dysphagia or abdominal pain. Genitourinary: No history of hematuria or dysuria. Musculoskeletal: No complaint of arthritis Has Right leg weakness, see HPI. Psychiatric: No history of hallucinations He feels somewhat anxious and also down emotionally as his neurological disability is affecting his QOL. ROS Neurological: SEE HPI No complaint of headache. Complaint of tinnitus, bilateral . No complaint of decreased hearing. No complaint of diplopia. No complaints of decreased visual acuity. Complaint of RT arm/leg numbness. Problem with RT limb coordination. No complaint of syncope Complaint of seizures, see HPI No loss of consciousness. Objective BP 118/59 Pulse 103 Temp 36.4 C (97.6 F) (Oral) Resp 18 Wt 84.6 kg (186 lb 8.2 oz) SpO2 97% BMI 26.01 kg/m GENERAL EXAM: General appearance: Well appearing, alert, in no acute distress NEUROLOGICAL EXAM: Higher integrative functions: Oriented to person, place & time. Attention Span and Concentration: Good. Language: Accurate naming of objects. Good comprehension. Fund of Knowledge: Good. 2nd CN: Full visual gonzalez. 3rd,4th,6th CN: Pupils equal, round, react to light, full extraocular movements. 5th CN: No decrease in facial sensation 7th CN: Facial muscles symmetric and strong. 8th CN: Hears finger rub well bilaterally. 9th CN: Gag reflex not tested 10th CN: Spontaneous palate movement, full and symmetric. 11th CN: Full strength in shoulder shrug. 12th CN: Tongue protrusion full and midline. Sensation: No decrease in sensation in upper or lower limbs to touch. Musculoskeletal: Gait steady. Tandem walk normal. Romberg negative. Motor: 5/5 RUE/RLE; 5/5 LUE/LLENormal muscle tone without atrophy in all limbs. Coordination: Rapid alternating movements LUE intact; RUE intact Reflexes: 1-2+ ALL limbs. Plantar response down going. Patient has a degree of sensory ataxia in his left LE. Karnofsky performance status: 90 - Able to carry on normal activity, minor signs or symptoms of disease. ECOG performance status: 1 - Restricted in physically strenuous activity but ambulatory and able to carry out work of a light or sedentary nature, e.g., light house work or office work. 09/05/2023 PHQ 2 and 9 Total Scores PHQ-2 Score 0 PHQ-9 Score 1 Labs: Latest Ref Rng & Units 05/01/2022 12/20/2022 03/29/2023 CBC WBC 3.70 - 11.00 k/uL 4.80 4.07 8.00 RBC 4.20 - 6.00 m/uL 4.58 4.56 4.57 Hemoglobin 13.0 - 17.0 g/dL 14.4 14.4 14.6 Hematocrit 39.0 - 51.0 % 39.2 41.9 41.5 MCV 80.0 - 100.0 fL 85.6 91.9 90.8 MCH 26.0 - 34.0 pg 31.4 31.6 31.9 MCHC 30.5 - 36.0 g/dL 36.7 34.4 35.2 RDW-CV 11.5 - 15.0 % 11.8 11.8 11.7 Platelet Count 150 - 400 k/uL 177 151 178 MPV 9.0 - 12.7 fL 8.6 8.4 8.6 Baso% % 0.2 0.2 0.3 Abs Neut (ANC) 1.45 - 7.50 k/uL 3.40 2.79 6.30 Abs Lymph 1.00 - 4.00 k/uL 0.90 0.76 0.92 Abs Vinton <0.87 k/uL 0.44 0.46 0.70 Abs Eosin <0.46 k/uL 0.04 0.04 0.04 Abs Baso <0.11 k/uL <0.03 <0.03 <0.03 NRBC /100 WBC 0.0 0.0 0.0 Latest Ref Rng & Units 05/01/2022 12/20/2022 03/29/2023 CMP Sodium 136 - 144 mmol/L 133 134 135 Potassium 3.7 - 5.1 mmol/L 4.3 4.4 4.5 Chloride 97 - 105 mmol/L 101 101 100 CO2 22 - 30 mmol/L 27 24 27 Glucose 74 - 99 mg/dL 99 91 99 BUN 9 - 24 mg/dL 14 15 15 Creatinine 0.73 - 1.22 mg/dL 0.94 1.01 1.02 EGFR >=60 mL/min/1.73m 91 83 82 Protein, Total 6.3 - 8.0 g/dL 6.2 6.6 Albumin 3.9 - 4.9 g/dL 4.2 4.2 Calcium 8.5 - 10.2 mg/dL 8.9 9.2 9.4 Bilirubin, Total 0.2 - 1.3 mg/dL 0.5 0.6 AST 14 - 40 U/L 17 20 ALT 10 - 54 U/L 12 23 Alkaline Phosphatase 38 - 113 U/L 65 69 Final Pathology: N/A PATIENT HAS NOT HAD A BIOPSY/SURGERY OF HIS BRAIN TUMOR. Imaging: Results MRI BRAIN WO/W IVCON (Order [id number]) Patient Info Patient Name Sex Watson Rose ([id number]) Male 1960 01/26/2022 12:11 PM - Radiology, [place] In Impression IMPRESSION: Minimal decrease in size of the parafalcine meningioma compared to the prior exam. Paper Goods Machine Operator: [facility] Transcribe Date/Time: Jan 26 2022 12:02P Dictated by : FREDI CARPENTER MD This examination was interpreted and the report reviewed and electronically signed by: FREDI CARPENTER MD on Jan 26 2022 12:09PM EST Adjacent T2/FLAIR hyperintense vasogenic edema/posttreatment changes in the left parietal centrum semiovale and lopez radiata are unchanged. Local mass effect is again noted and unchanged. No new intracranial enhancing lesions. Results MRI BRAIN WO/W IVCON (Order [id number]) Patient Info Patient Name Sex Watson Rose ([id number]) Male 1960 In Basket Actions Done Result Mgmt View in In Basket 07/31/2022 4:16 PM - Radiology, Oru In Impression IMPRESSION: Stable posterior frontoparietal parafalcine meningioma with invasion of the superior sagittal sinus. Paper Goods Machine Operator: [facility] Transcribe Date/Time: Jul 31 2022 3:51P Dictated by : REGGIE KIMBLE MD This examination was interpreted and the report reviewed and electronically signed by: REGGIE KIMBLE MD on Jul 31 2022 4:13PM EST Results MRI BRAIN WO/W IVCON ([id number] [facility]) (Order [id number]) Patient Info Patient Name Sex Watson Rose ([id number]) Male 1960 In Basket Actions Done Result Mgmt View in In Basket 01/26/2023 12:43 PM - Radiology, Oru In Impression IMPRESSION: Stable appearance of the brain since 07/31/2022. Paper Goods Machine Operator: [facility] Transcribe Date/Time: Jan 26 2023 12:31P Dictated by : CLAUDIO FUNK MD This examination was interpreted and the report reviewed and electronically signed by: CLAUDIO FUNK MD on Jan 26 2023 12:41PM EST Results-Findings * * *Final Report* * * DATE OF EXAM: Jan 26 2023 10:50AM WR [id number] - MRI BRAIN WO/W IVCON / PROCEDURE REASON: Meningioma (HCC) * * * * Physician Interpretation * * * * EXAMINATION: MRI BRAIN WO/W IVCON CLINICAL HISTORY: Parasagittal meningioma. Prior gamma knife therapy completed. TECHNIQUE: Routine brain MRI protocol without and with contrast including diffusion images. MQ: [id number] Contrast: 17 mL Dotarem IV COMPARISON: 07/31/2022 RESULT: Acute Change: There is no evidence of an acute intracranial process. Hemorrhage: No evidence of prior parenchymal hemorrhage on SWI. Mass Lesion/ Mass Effect: Again noted is a large, lobulated extra-axial soft tissue mass along the falx in the region of the paracentral lobules which is predominantly left-sided but marginally extends to the falx to the right of midline compatible with the clinical history of a meningioma. This mass is again noted to be heterogeneously hyperintense on FLAIR, heterogeneously hypointense on T1 and T2, and demonstrates prominent heterogeneous enhancement following gadolinium administration. There continues to be a small cystic component along the dorsal lateral inferior margins and there continues to be confluent hyperintensity in the subjacent white matter of the posterior left frontal and parietal centrum semiovale without significant change. Overall, this mass measures approximately 4.8 x 3.8 x 3.6 cm in greatest AP, transverse, and CC dimensions, respectively. There continues to be moderate localized mass effect related underlying parasagittal left superior parietal lobule and mild compression of the right precuneus. There has continued clear invasion of the intervening superior sagittal sinus but there has uniform enhancement of the superior sagittal sinus dorsal to this compatible with patency. The superior sagittal sinus and ventral to this likely drainage through cortical veins. There is no clear evidence of an intracranial mass elsewhere. No abnormal parenchymal or leptomeningeal enhancement is appreciated otherwise following gadolinium administration. Chronic Change: The white matter is otherwise within normal limits of signal intensity for age. Parenchyma: No significant volume loss for age. The brain parenchyma is otherwise within normal limits of signal intensity and morphology. Ventricles: Normal caliber and morphology. Skull Base: Hypothalamic and pituitary region are grossly normal. Craniocervical junction is normal. No significant marrow replacement process. Vasculature: Persistent invasion of the superior sagittal sinus by the above-described meningioma as outlined above. Other: The visualized paranasal sinuses and mastoid air cells are clear. The orbits and extracranial soft tissues are unremarkable. Result History MRI BRAIN WO/W IVCON (Order #[id number]) on 01/26/2023 - Order Result History Report Result Information Status Provider Status Final result (01/26/2023 12:43 PM) Ordered Exam Performed Date and Time 01/26/2023 10:50 AM [facility] DIVISION OF RADIOLOGY [address] [address] Watson Rosemary Rodriguez to [facility] (supporting You) 01/17/23 8:[address] Alcala I have a request regarding my Jan 29 virtual appt with you. We will review my jan 26 MRI results. I have some questions to discuss going forward from current status. A brief background. Dr Sutton communicated in my initial consult in July 2020, prior to gamma knife that my meningioma after gamma will not regress in size and could possibly regrow after gamma over years. If problems arise from meningioma growth in future (after gamma) new & improved treatment options would be discussed at that time. Here is my request. Consult with Dr Sutton & others in department along with your own medical insights and educate me in my virtual appt on these questions. 1) what testing will be done going forward to monitor my meningioma? - I discussed, other imagine modalities, in addition to the primary imaging which is MRI. At times, other images like nuclear medicine images can be done, ii.esophoria, SPECT-Octreoscan, PET DOTATATE (poor availability), and or the MR based images, like MR spectroscopy, . MR anglogram etc. All images are considered to answer a question, and are done if required. 2) what clinical signs could occur if meningioma regrows? Seizures, neuropathy, numbness. In other words, what do I need to be aware of clinically if tumor regrows? We discussed that most likely symptoms the he has at present ma be more prominent or more frequent, including seizures, as well other symptoms like headaches, royer ensue. He is aware to connect wit us if any symptoms change, and if prominent/severe/frequent to seek immediate medical attention firs (going to the ED) and the call us after. 3) I have a consult with your referral to Dr Pappas at [facility]. Appt is feb 01. Asking his insight also into future management & options for meningioma. Since you know him, I would appreciate you communicate your insights to Dr Pappas prior to my appt. I told Mr. Serrano that the notes are posted in [facility], a that Dr. Pappas will have access to them. Results MRI BRAIN WO/W IVCON (Acc#[id number] [facility]) (Order [id number]) Patient Info Patient Name Sex Watson Rose ([id number]) Male 1960 08/31/2023 12:34 PM - Radiology, Oru In Impression IMPRESSION: Similar/mildly increasing size of the posterior frontal-parietal parafalcine meningioma compared to prior MRI brain 01/26/2023. Paper Goods Machine Operator: NICOL Transcribe Date/Time: Aug 31 2023 12:24P Dictated by : CHAYO ARNOLD DO This examination was interpreted and the report reviewed and electronically signed by: CHAYO ARNOLD DO on Aug 31 2023 12:32PM EST I compared this MRI 08/31/2023, with previous MRI's and it seems that over time, the tumor has regressed. Assessment & Plan Mr. Watson Rodriguez is a 63-year-old male investigated for right leg numbness and weakness (couldn't stand on it) April 2020. Work up for lumbar spine cause non conclusive. He had an episode of seizure and MRI brain showed left parasagittal dural based lesion 4.9 x3.5x4.2 cm with small nodule extending to right side. His right leg still numb and weak. High step gait to avoid dragging his right lower extremity. He had GK-SRS to the tumor (25Gy/5fx) from 08/16/2020-08/20/[address] Sutton from Neurosurgery and Dr. Aviles Radiation Oncology. Mr. 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 He tolerated his treatments well. No side effects. His overall symptoms improved including his QOL. However, he still has persistent, right foot discomfort, a burning paresthesia. The etiology is likely from the brain tumor, as work up has failed to show a focal issue, and in fact his initial symptom was a right lower extremity discomfort/weakness. 02/16/23: -Symptoms before bevacizumab (mami) -He was able to walk 5K steps a day -Dexterity of his foot, prevent him form driving well -Was having more seizures, clonic. -Symptoms after bevacizumab (mami) -Gradually improved to now able to walk 10 K steps a day -Dexterity of his Rt foot, is better, so now he can drive -He has had less seizures overall, and is only on 1 antiepileptic drug (AED). -Right foot paresthesias, improved, but this improvement has not been sustained, as it has recurred. Persistent symptom: for the past 6 months or so gradually progressing, having, more pain in his right foot. This occurs daily, and has exacerbation here and there, particularly when he walks, or stands. It gets better if he elevated his leg. This discomfort is the same in intensity and frequency prior to bevacizumab (mami) His wish is to get rid of this discomfort. DISCUSSION: -He acknowledges, that MAMI has been effective in improving several symptoms, and his overall QOL is also better. Also, his right foot paresthesia, improved, and had sustained benefit for months, but as noted above this symptom has recurred. The question is whether another set of MAMI infusion will be of benefit, and if MAMI is used it would be to improve one symptom, but a symptom that is affecting Mr. Rodriguez QOL. I told him that another set of MAMI infusions can be considered. He also tolerated this medication with no side effects. The other question is whether his discomfort should have a different approach, like seeing pain medicine, to define whether he has Complex Regional Pain Syndrome (CRPS), and to address it as standard. He is getting local injections with steroids by his doctor of radiology next week, and the hope is that this will improve his symptom. He is seeing Dr. Sutton his neurosurgeon, with the question whether surgical intervention is feasible, and whether surgery could alleviate his symptom. This in the context that he had a second opinion at [facility], and he was told that perhaps surgery (debulking), could be helpful. In summary: My take is that it is Ok to continue watching clinically and radiologically. MAMI can always be reconsidered, but he has already had sustained improvement of a few symptoms, including his QOL which is better as attested by the patient; however he wishes his right foot pain to be improved, and better, gone. So, if MAMI is used it would be to address one symptom, his right foot pain. Mami could be considered if his pain is not better, even after having the steroid injection, or formally seeing the pain clinic. One thought is that perhaps he could have Complex regional Pain Syndrome, for which he could benefit by seeing Pain Medicine but by a physician with expertise with CRPS, with the goal to define whether he has this syndrome or not. And if so, then to be managed accordingly. Another option is hyperbaric chamber, if the culprit, is radionecrosis primarily. Surgery option, per Dr. Sutton. Of note: I re-review on 02/16/23 with the patient, post hoc visit clinic , the possibility of CRPS, and perhaps to have pain medicine to see him, but he would want to proceed first with podiatry management, and I think this is reasonable. Hence no referral to Pain Medicine for now. PLAN: 1-Meningioma (radiological diagnosis), S/P SRS-Gamma Knife: -Plan for brain MR w and w/o and perfusion The patient wishes to move his MRI to 12 months time. I told him that I will ask Dr. Sutton whether he is also in agreement of the follow up MRI interval and will let him know of his opinion. He is aware that if he has progressive or new neurological symptoms, he will need to be evaluated sooner and he will need a sooner brain image. 2-Return visit: 1-2 days after the MRI 3-Seizures: Continue Levetiracetam (Keppra). -Current LEV dose, 1000 mg BID, since 02/16/2023. -Now off lacosamide (Vimpat) since 01/29/23. He is aware that he could have seizures, so he is taking all precautions, including to use his rescue medications, clonazepam, however when he uses it, seldomly he says, average twice to 4 times a month, he feels quite sleepy afterwards. He is to avoids engaging in activities that require his full alertness, until he is back to base line of alertness. 4-Levetiracetam levels Latest Reference Range & Units 03/29/23 14:13 Levetiracetam 12.0 - 46.0 ug/mL 21.5 5-Rescue medications for breakthrough seizures using either midazolam nasal spray. Or clonazepam sublingual. Not to use both agents on the same day, can use either one in a 24-hour period. I discussed with the patient the potential benefits and side effects of this medications and he knows when and how to use them. 7-Paresthesias of the right leg/foot. He is still having right foot toes paresthesias. He preston bee his local neurologist to work him up for any peripheral nerve pathology, as he still wishes to explore whether his paresthesias are due to a peripheral nerve process. He also pointed out that he has history of spina bifida occulta. 8-Driving a motor vehicle: He is driving a car now. 9-Follow-up with Dr. Sutton his neurosurgeon. 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 Sutton and Dr. 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 Not on steroids. Under my care he had 4/4 of his bevacizumab (mami) infusions every 3 weeks, which he completed on May 01, 2022, with benefit, see above. 10-Follow with his primary physician Dr. Whittington. 11-Follow up with scada technician Dr. Claudio Parks for cardiology care. 12-Follow up with Dr. Joe Santos, for nephology care, as patient has one functional kidney. 13. Follow with Dr. Carrillo, from podiatry. 14-Question about whether hs Rt foot issue is of vascular in origin. He says his PCP, has done work up and feel there is no vascular pathology. I offered order an MRV/Vascular MR to exclude vascular pathology but he declined. He feels that the vascular question has been answered and ruled out and wishes not to proceed with more test for that. At the end, Mr. Rodriguez and his Damaris, NARCISA, verbalized understanding, and agreement with above recommendations and had no further questions or concerns for the moment. I encourage him to call me at my office if he has any questions about the above plan. I spent a total of 30 minutes which included preparing to see the patient, [id number] patient care, additional 15 minutes to completing clinical documentation, obtaining and/or reviewing separately obtained history, performing a medically appropriate examination, counseling and educating the patient/family/caregiver, ordering medications, tests, or procedures, communicating with other HCPs (not separately reported), independently interpreting results (not separately reported), communicating results to the patient/family/caregiver, and care coordination (not separately reported). Yancy Centeno MD Staff Neuro-Oncologist [facility] CC: -Dr. Trev Sutton, Neurosurgery, [facility] -CC-Pipo Aviles MD, Radiation Oncology, [facility], [facility], [facility], [facility] -Joe Santos MD, Nephrology, [facility] Claudio Parks MD, Cardiology, [address], [address], [place] [address], PHONE: -Dr. Catarino Camacho, Epilepsy, [facility] -JORGE Alvarez, PCP, [address] [facility] [address], ; documented in this encounter [facility] 09-10-2023 Nurse Note Additional intake questions: Has the patient had fever, nausea, vomiting, diarrhea, constipation, fatigue for > 1 week? No Does the patient have a decreased appetite? No Does patient want to see a Testing Lead? No (yes to any of above refer patient to schedulers for dietitian appointment) ) Does patient have any new or increased numbness or tingling of extremities? No Is patient interested in fertility information? No Does patient need any prescription refills? No Does patient have an advanced directive in place? Yes, no copy found in [facility] Patient referred to [facility] 09-10-2023 Nurse Note Additional intake questions: Has the patient had fever, nausea, vomiting, diarrhea, constipation, fatigue for > 1 week? No Does the patient have a decreased appetite? No Does patient want to see a Testing Lead? No (yes to any of above refer patient to schedulers for dietitian appointment) ) Does patient have any new or increased numbness or tingling of extremities? No Is patient interested in fertility information? No Does patient need any prescription refills? No Does patient have an advanced directive in place? Yes, no copy found in [facility] Patient referred to [facility] documented in this encounter [facility] 08-31-2023 History of Presen t illness Narrative Radiology Service Progress Note DATE OF SERVICE: August 31, 2023 TIME: 11:24 AM PATIENT IDENTITY VERIFICATION COMPLETED USING TWO (2) STANDARD IDENTIFIERS: Name and Date of confirmed by patient verbally. FALL SCREENING: Has the patient had 2 falls in the last year or 1 fall with injury or currently using an Ambulatory Assistive Device (Walker, Cane, Wheelchair, Crutches, etc.)? No PATIENT GENDER DATA: Male PATIENT RELEVANT IMPLANT DATA REVIEWED: Yes PATIENT PRESENTS WITH AN IMPLANTABLE OR ATTACHED CLINICAL ASSISTANT PROFESSOR: No ALLERGIES: Reviewed and unchanged CONTRAST ALLERGY: NO. EXAM: MRI - CONTRAST TYPE: GROUP II PERIPHERAL IV DATA: Ambulatory: A peripheral IV was started in the Left antecubital site with a Angio cath: 20 gauge. RADIOLOGY DEPARTMENT: MR; Exam(s) Completed: Head: Routine Brain with Perfusion SIGNATURE: RT Devonte(R) PATIENT NAME: Watson Rodriguez DATE: August 31, 2023 TIME: 11:24 AM documented in this encounter [facility] 08-30-2023 History of Presen t illness Narrative Images from the original note were not included. Episode Visit Count: 2 Therapist That Will Accept/Oversee The Plan Of Care: En Gibson PT Start of Care Date: 08/08/23 Onset Date: 04/13/22 Plan of Care Certification Date: 08/08/23 Next Certification Due Date: 09/05/23 Patient Identified by Name and Date of : Yes [facility] PHYSICAL THERAPY DISCONTINUANCE OF CARE PLAN OF CARE UPDATE: Assessment: Watson Rodriguez is discontinued from Physical Therapy services due to goal achievement and maximal benefit.. Patient was seen for 2 visits from Start of Care Date: 08/08/23 to 08/30/2023 and treatment included: Therapeutic exercise, Neuromuscular re-education, Self-assisted management, and Patient/Family/Caregiver Education. Updated: 08/30/23 Goals for Episode of Care: created on 08/08/23 through 09/05/23 [place] in home exercise program. - MET Perform all prior functional activities with decreased report of symptoms/pain in 4 weeks. - MET Patient Goals: decrease R foot pain - MET SUBJECTIVE: Pt reports that he has been compliant with HEP since last session 08/08/23. He reports that he has been intentional about increasing his activity level and walking. He reports that he routinely gets 10,000 steps per day. He also feels that the pain he was having in his R forefoot has fully resolved. he does report intermittent and unexplained burning symptoms in R foot that occur without any known trigger and also resolve within 20 minutes without treatment or explanation. He wonders if these burning sympoms in his foot are related to his brain tumor. He also reports a popping sound and sensation in R LB, hip and buttock region with a supine bicycle motion of R LE. He denies any similar symptoms on L. This popping is consistent and audible but not painful. It cannot be localized. He reports that he has ordered the Why Do I Hurt book that was recommended last session. Pain: Pain Pain Level: 0 Pain Location: Foot - Right Description: (no pain to start that is similar to his chief from 08/08/23.) Frequency: Intermittent Post Treatment Pain Post Treatment Pain Level: No Change PROMIS Scales 08/05/2023 05/01/2023 10/30/2021 Higher is Better Phys Func - Score 43 (mild dysfunction) 43 (mild dysfunction) 44 (mild dysfunction) Phys Func - Percentile 24 24 27 Self-Eff Symptom - Score 42 (Average) 46 (Average) 38 (Low) Self-Eff Symptom - Percentile 21 34 12 T-scores: mean of general population = 50. 5 points is clinically meaningfully difference Percentiles provide an indication of how the patient's score ranks in relation to the general population. Higher percentile rankings indicate better function/quality of life. 50th percentile is the average of the general population and indicates half of respondents had a worse score. OBJECTIVE MEASURES WITH LEVEL OF FUNCTION: Posture / Alignment Lumbo - Pelvic Alignment: In standing: ASIS and PSIS are level with no TTP along R SI joint. In supine: ASIS are level and no LLD Leg Length Discrepency: none Spine Observations R Lumbar Spine Palpation Tenderness: Comments, No tenderness noted R Lumbar Spine Palpation Comments: The origin of the pop when pt is supine and does cycling motion with R LE is undetermined and not palpable. Again, pt denies any pain with this pop. Gait Gait Observation: normal TREATMENT: Therapeutic Exercise: 1: supine R piriformis stretch 3x30 seconds reviewed for HEP and continuation encouraged to tolerance. 2: HEP was reviewed and continuation encouraged. Recommendations were made regarding his independent workouts and therapist's contact information provided. Pt will use [employer] to communicate. Skilled Intervention: Patient was educated in proper exercise technique and purpose for exercises. Skilled judgment was used in selection of appropriate interventions. Correct performance of therapeutic exercises was facilitated with verbal and visual cuing. Patient education as noted. Self-Fci Management: 1: Considerable time spent answering all of patients questions about his orthopedic concerns, their origins and treatment options. A model of the spine and pelvis were used to educate pt on his anatomy, MRI findings from 05/24/2020 and rationale for treatment recommendations. This therapist's exam findings were explained in detail and pt was advised to seek an orthopedic consult for his popping symptom in R low back/hip region. Pt questions about his custom foot orthotics were answered and recommendations made. Skilled Intervention: Reviewed patient specific diagnosis in relation to activities of daily living/home management. Billing Therapeutic Exercise Treatment Minutes: 13 Neuromuscular Re-Education Treatment Minutes: 5 Self-Care/Home Management Treatment Minutes: 20 Skilled Treatment Time Minutes (timed and untimed codes): 38 Total Session Time (minutes): 38 Session Start Time : 1555 Session Stop Time : 1633 En Gibson PT documented in this encounter [facility] 06-21-2023 Miscellaneous Notes Jared, from [facility] pharmacy in [facility] phoned to notify us that they dispensed 60 tablets, instead of 30 tablets of Clonazepam to Mr. Rodriguez on 06/07/2023. States, We found the error when we were doing our medication checks, we wanted to notify you so that you could make note of this. Miriam Marinelli RN June 21, 2023 10:47 AM documented in this encounter [facility] 05-01-2023 Miscellaneous Notes Disk was received in mail from radiology. 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 This has been added to Epic Images. Pt calling because he wants to stop and pick the disk Please advise where he is to pick this up. Ayanna Manzo LPN documented in this encounter [facility] 04-25-2023 Instructions Miguelangel Spence APRN.[employer] - 04/25/2023 12:04 PM EST Images from the original note were not included. PLAN: - Continue Auto CPAP at current settings of 5-20 cmH2O. - Sleep apnea is presently well controlled! Keep up the great work! - I will order a mask fitting through [employer], and see if this is covered by insurance - Please contact [employer] to arrange mask fitting. - You may benefit from trying the ResMed AirFit F30 I mask, which is similar to the DreamWear full face mask - I will see if we have a sample of this mask at the [facility], and contact you to arrange pickup if we do - I'll send you a [email or web address] message this afternoon letting you know - Remember to clean your mask and equipment regularly, as directed. - Avoid use of ozone manager floor, SoClean devices, or UV cleaning devices - Avoid using alcohol or alcohol-containing products on your mask, as this may compromise the integrity of the mask materials and contribute to leak issues - Use only baby shampoo and water, mild dish soap and water, or CPAP-specific wipes to clean your supplies. - You should be eligible for new supplies approximately every 3-6 months, depending on your insurance coverage. Contact your Durable Medical Equipment (DME) company for new supplies as needed. - Follow up scheduled for 6 months. - Will follow-up sooner if needed - If you are still having trouble staying asleep (particularly during first couple hours of sleep) with better mask seal, we can discuss pressure increase - we want to improve leak first Hybrid Masks to try: (Picture below each name) ResMed AirFit F30i mask PAP Supply Guidelines Below are the guidelines for reordering your supplies. You will be responsible for your deductible, co-payments, and out of pocket expenses. Item Medicare & Commercial Insurance Medicaid & HCAP Nasal Mask (no headgear) 1 every 3 months 1 per year Nasal Mask Cushion 1 every month 2 per year Full Face Mask (no headgear) 1 every 3 months 1 per year Full Face Mask Cushion 1 every month *Self-Pay Nasal Pillows 2 every month 2 per year Headgear 1 every 6 months 1 per year Chin Strap 1 every 6 months 2 per year Tubing 1 every 3 months 1 per year Filters: Reusable 1 every 6 months 4 per year Filters: Disposable 2 every month 1 per month Humidifier Chamber(disposable) 1 every 6 months *Self-Pay Contacting the Sleep Disorders Center: - Appointments can be scheduled through the central scheduling system for the [facility] at [phone]. - Call the Sleep Disorders Center at [phone] for questions. - May use Message My Doc through [email or web address] for questions. - [facility] website: [email or web address] documented in this encounter [facility] 04-25-2023 History of Presen t illness Narrative Images from the original note were not included. [facility] Follow up/ Established patient visit Visit performed virtually, with the patient's permission. I have communicated my name and active licensure. The patient's identity and physical location were verified at the time of this visit. Either the patient or their legal help desk representative has been informed of the risks and benefits of -- and alternatives to -- treatment through a remote evaluation and consents to proceed with the evaluation remotely. Date of last visit : 03/19/2023 Per last visit: IMPRESSION: Mell on cpap (primary encounter diagnosis) Watson Rodriguez is a very pleasant 62 year old male with PMH of MELL on CPAP, intracranial meningioma, seizure, CAD, nonrheumatic aortic valve stenosis, HLD, history of AK, MVP, myocardial ischemia, presence of coronary angioplasty implant and graft, tinnitus, bilateral hearing loss, colonic polyps, left renal atrophy, and stage I CKD. A Home Sleep Test (HST) performed on 01/21/2021 revealed at least moderate MELL (AHI of 19.2) that was associated with a minimum oxygen saturation of 87%; (3% hypopnea scoring; BMI 30.9). He was set up with auto CPAP ( 10) on 03/04/2021 via [employer]. He was having mild rAHI and high mask leak. He was changed from Viri FFM to Dreamwear FFM, however, Viri FFM was not well-tolerated (though mask leak was somewhat lower). He switched back to Dreamwear FFM. Per download from 02/17/2023 - 03/18/2023, patient uses PAP therapy an average of 6.75 hours, and PAP use is >/= 4 hours on 93 % of nights; Current setting of 5-20 cmH2O is controlling MELL well (residual AHI 3.8). He c/o waking 1-2 hours into sleep, and he may benefit from a pressure increase, as detailed PAP data suggests PAP pressure increases to 8-12 cmH2O after 1-2 hours (suspected w/ REM sleep). However, we will first attempt to improve mask leak to avoid exacerbating this issues with pressure increase. He was fitted with Dreamwear FFM using small headgear today in office, which seems to provide better mask seal. PLAN: - Continue Auto CPAP at current settings of 5-20 cmH2O. - Sleep apnea is presently well controlled! Keep up the great work! - Try the new headgear for Dreamwear full face mask : small headgear - Remember to clean your mask and equipment regularly, as directed. - Avoid use of ozone manager floor, SoClean devices, or UV cleaning devices - Avoid using alcohol or alcohol-containing products on your mask, as this may compromise the integrity of the mask materials and contribute to leak issues - Use only baby shampoo and water, mild dish soap and water, or CPAP-specific wipes to clean your supplies. - You should be eligible for new supplies approximately every 3-6 months, depending on your insurance coverage. Contact your Durable Medical Equipment (DME) company for new supplies as needed. - Follow up in 1 months with me virtually - If you are still having trouble staying asleep (particularly during first couple hours of sleep) we can discuss pressure increase - we want to improve leak first . Miguelangel Spence, HONEY.[employer] Here for follow up for MELL on CPAP Interval history : Mask leak is still high with change from medium to small headgear (Dreamwear FFM). He reports that the tightness of the mask was causing sore on cheek and tenderness of nasal septum. He had to loosen straps a little for comfort. Mask seems to slip up over chin/lower lip during the night with new headgear pulling mask up higher. SLEEP APNEA A Home Sleep Test (HST) performed on 01/21/2021 revealed at least moderate MELL (AHI of 19.2) that was associated with a minimum oxygen saturation of 87%; (3% hypopnea scoring; BMI 30.9). Sleep apnea type : MELL, Most Recent Apnea-Hypopnea Index (AHI): 19.2 Treatment : PAP therapy DME: PAP History: Current PAP settin-20 cm H2O. Difficulties with AutoPAP: Finds himself waking 1-2 hours into sleep to void Reviewed objective PAP compliance data: Yes Per download from 03/25/2023-04/23/2023, patient uses PAP therapy an average of 6.75 hours, and PAP use is >/= 4 hours on 97% of nights; Current setting of 5-20 cmH2O is controlling MELL well (residual AHI 3.4). Mask type: full face mask (Viri FFM and Dreamwear FFM) Mask issues: Viri caused pressure along sides of nose ; Dreamwear has high leak Uses chin strap: No Uses ramp function: Yes x 5 mins Uses humidity: Yes, distilled There is a perceived benefit by the patient. PATIENT-ENTERED QUESTIONNAIRE SLEEP SCORES Sleep Questions 03/15/2023 Reason for visit: Difficulty falling or staying asleep or poor sleep quality, Abnormal sleep/wake timing Average hours slept in 24 hours: - Average hours of CPAP per night: 6.5 Percent of nights CPAP used at least 4 hours: 95 Accidents or near accidents due to drowsy drivin [place] Sleepiness Scale 11/03/2021 11/16/2022 03/15/2023 Score 7 (No daytime sleepiness) 4 (No daytime sleepiness) 4 (No daytime sleepiness) PROMIS CAT Sleep Disturbance 11/03/2021 11/16/2022 03/15/2023 PROMIS Sleep Disturbance T-Score 44 (within normal limits) 49 (within normal limits) 52 (within normal limits) PROMIS Sleep Disturbance Percentile 73% 54% 42% Insomnia Severity Index 07/16/2020 Score 5 Restless Leg Syndrome 03/07/2021 Score 7 PHQ-9 02/22/2022 11/16/2022 03/15/2023 Score 0 1 1 PROMIS Global Health - (T-Scores - the mean of general population = 50. Five points is a clinically meaningful difference.) 11/16/2022 03/15/2023 04/23/2023 Physical T-Score 47.7 44.9 44.9 Mental T-Score 59 56 45.8 PMH, PSH, SH: Reviewed SLEEP RELATED ROS Review of Systems Respiratory: Negative for cough. Genitourinary: Positive for nocturia. Skin: Positive for rash (Irritation of nasal septum). ALLERGIES Allergen Reactions Atorvastatin Myalgia, Other: See Comments CURRENT MEDICATIONS: CPAP/BIPAP/OTHER Continue Auto CPAP with current settings of 5-20 cm H2O. Lifetime supplies for Auto CPAP, including patient preferred mask, head gear, heated tubing, humidity, filters, chin strap. Dx: Obstructive Sleep Apnea G47.33 DME: Juliana Reilly Fax download reports to [phone]. levETIRAcetam (KEPPRA) 500 mg tablet Take 2 tablets by mouth two times a day. clonazePAM orally disintegrating (KLONOPIN WAFER) 1 mg disintegrating tablet Dissolve 1 tablet under the tongue three times daily as needed (seizures) for up to 30 days. dexAMETHasone (DECADRON) 2 mg tablet 2 mg the day prior to the flight, the day of the flight and the day after the flight. CPAP/BIPAP/OTHER PLEASE PROVIDE DREAMWEAR FFM (MEDIUM) Lifetime supplies for PAP tx, including patient preferred mask, head gear, heated tubing, humidity, filters, chin strap. Dx: Obstructive Sleep Apnea G47.33 DME: [facility] Fax download reports to [phone]. CPAP/BIPAP/OTHER Continue Auto CPAP with current settings of 5-20 cm H2O. Lifetime supplies for Auto CPAP, including patient preferred mask, head gear, heated tubing, humidity, filters, chin strap. Dx: Obstructive Sleep Apnea G47.33 DME: Kelly sildenafil (VIAGRA) 100 mg tablet Take 1 pill 1 hour prior to sexual activity on empty stomach CPAP Initiate Auto PAP @ 5-20 cm of water with humidification. Mask (per patient preference) optional chin strap (if indicated) , filters, tubing, humidifier and lifetime supplies. rosuvastatin (CRESTOR) 40 mg tablet Take 40 mg by mouth. Multivitamin capsule Take 1 capsule by mouth once daily. aspirin(ADULT LOW DOSE ASPIRIN 81 MG TAB, DELAYED RELEASE) Take one(1) tablet daily. PHYSICAL EXAMINATION: Vital signs not obtained d/t virtual visit. General appearance: NAD, well groomed HEENT: Normocephalic, atraumatic Neuro: Awake, alert, memory grossly intact, speech is fluent Respiratory: No increased work of breathing; able to speak in complete sentences Psych: Appropriate, normal affect IMPRESSION: Mell on cpap (primary encounter diagnosis) Watson Rodriguez is a very pleasant 63 year old male with PMH of MELL on CPAP, intracranial meningioma, seizure, CAD, nonrheumatic aortic valve stenosis, HLD, history of AK, MVP, myocardial ischemia, presence of coronary angioplasty implant and graft, tinnitus, bilateral hearing loss, colonic polyps, left renal atrophy, and stage I CKD. A Home Sleep Test (HST) performed on 01/21/2021 revealed at least moderate MELL (AHI of 19.2) that was associated with a minimum oxygen saturation of 87%; (3% hypopnea scoring; BMI 30.9). He was set up with auto CPAP ( 10) on 03/04/2021 via [employer]. He was having mild rAHI and high mask leak. He was changed from DreamWear FFM to Viri FFM, however, Viri FFM was not well-tolerated due to pressure against nares/cheeks (though mask leak was somewhat lower). He switched back to Dreamwear FFM. Will try changing from medium headgear to small headgear for the DreamWear FFM, but this has not resulted in any significant change in mask leak. Small headgear has also not been well-tolerated, due to causing sore against cheekand tenderness of nasal septum. He had to loosen the straps slightly for comfort. He also states that the mask seems to slip up over his chin/lower lip during the night with a smaller headgear, which seems to pull the mask up higher. Per download from 03/25/2023-04/23/2023, patient uses PAP therapy an average of 6.75 hours, and PAP use is >/= 4 hours on 97% of nights; Current setting of 5-20 cmH2O is controlling MELL well (residual AHI 3.4). He c/o waking 1-2 hours into sleep, and he may benefit from a pressure increase. However, we will first attempt to improve mask leak. PLAN: - Continue Auto CPAP at current settings of 5-20 cmH2O. - Sleep apnea is presently well controlled! Keep up the great work! - I will order a mask fitting through [employer], and see if this is covered by insurance - Please contact [employer] to arrange mask fitting. - You may benefit from trying the ResMed AirFit F30 I mask, which is similar to the DreamWear full face mask - I will see if we have a sample of this mask at the [place] office, and contact you to arrange pickup if we do - I'll send you a [email or web address] message this afternoon letting you know - Remember to clean your mask and equipment regularly, as directed. - Avoid use of ozone manager floor, SoClean devices, or UV cleaning devices - Avoid using alcohol or alcohol-containing products on your mask, as this may compromise the integrity of the mask materials and contribute to leak issues - Use only baby shampoo and water, mild dish soap and water, or CPAP-specific wipes to clean your supplies. - You should be eligible for new supplies approximately every 3-6 months, depending on your insurance coverage. Contact your Durable Medical Equipment (DME) company for new supplies as needed. - Follow up scheduled for 6 months. - Will follow-up sooner if needed - If you are still having trouble staying asleep (particularly during first couple hours of sleep) we can discuss pressure increase - we want to improve leak first Miguelangel Spence APRN.MONO I spent a total of 39 minutes on the date of the service which included preparing to see the patient, [id number] patient care, completing clinical documentation, obtaining and/or reviewing separately obtained history, performing a medically appropriate examination, counseling and educating the patient/family/caregiver, ordering medications, tests, or procedures, and communicating results to the patient/family/caregiver. documented in this encounter [facility] 04-02-2023 Miscellaneous Notes Pt notified of results via [employer]Grad[employer]. Ruthie Talbot Ma' ----- Message from Nishant Mcqueen MD sent at 04/01/2023 2:22 PM EST ----- Unremarkable labs in workup for irregular heartbeat. documented in this encounter [facility] 03-29-2023 History of Presen t illness Narrative Chief Complaint Patient presents with: Follow Up: Had irregular heart rthym and PCP recommended appt HPI Watson Rodriguez is a 62 year old male who presents here today for Above Complaints.. Patient here today for EKG to follow up on irregular heartbeat noted by tech when he was getting PVR yesterday. Patient asymptomatic at that time without chest pain, palpitations,tachycardia, SOB. Has history of AK without known arrhythmia. Notes that he started magnesium supplement about 2 weeks ago as recommended by his sleep specialist. Past medical history, appointments, medications, allergies reviewed. Previous Medical History PAST MEDICAL HISTORY Diagnosis Date Acute myocardial infarction of lateral wall (HCC) 2012 s/p LAD stent Benign neoplasm of colon Benign neoplasm of meninges (HCC) 08/02/2020 Hyperlipidemia Seizure (HCC) focal motor Previous Surgical History PAST SURGICAL HISTORY Procedure Laterality Date COLONOSCOPY FLX DX W/COLLJ SPEC WHEN PFRMD 10/29/2009 Colonoscopy HEMORRHOID;BAND LIGAT, SNGL/MUL 12/2016 PAST SURGICAL HISTORY OF Left 04/2017 left knee arthroscopy - meniscus PAST SURGICAL HISTORY OF 01/2013 PTCA x 1 - LAD Family History FAMILY HISTORY Problem Relation Age of Onset Colon Cancer Mother ascending large intestine removed 2008 at 80 years old Colon Cancer Maternal Grandmother portion lower colon removed 60 years old, colostomy Patient Allergies ALLERGIES Allergen Reactions Atorvastatin Myalgia, Other: See Comments Current Medications Current Outpatient Medications on File Prior to Visit Medication Sig CPAP/BIPAP/OTHER Continue Auto CPAP with current settings of 5-20 cm H2O. Lifetime supplies for Auto CPAP, including patient preferred mask, head gear, heated tubing, humidity, filters, chin strap. Dx: Obstructive Sleep Apnea G47.33 DME: Juliana Glezron Fax download reports to [phone]. levETIRAcetam (KEPPRA) 500 mg tablet Take 2 tablets by mouth two times a day. clonazePAM orally disintegrating (KLONOPIN WAFER) 1 mg disintegrating tablet Dissolve 1 tablet under the tongue three times daily as needed (seizures) for up to 30 days. dexAMETHasone (DECADRON) 2 mg tablet 2 mg the day prior to the flight, the day of the flight and the day after the flight. CPAP/BIPAP/OTHER PLEASE PROVIDE DREAMWEAR FFM (MEDIUM) Lifetime supplies for PAP tx, including patient preferred mask, head gear, heated tubing, humidity, filters, chin strap. Dx: Obstructive Sleep Apnea G47.33 DME: [facility] Fax download reports to [phone]. CPAP/BIPAP/OTHER Continue Auto CPAP with current settings of 5-20 cm H2O. Lifetime supplies for Auto CPAP, including patient preferred mask, head gear, heated tubing, humidity, filters, chin strap. Dx: Obstructive Sleep Apnea G47.33 DME: [facility] sildenafil (VIAGRA) 100 mg tablet Take 1 pill 1 hour prior to sexual activity on empty stomach CPAP Initiate Auto PAP @ 5-20 cm of water with humidification. Mask (per patient preference) optional chin strap (if indicated) , filters, tubing, humidifier and lifetime supplies. rosuvastatin (CRESTOR) 40 mg tablet Take 40 mg by mouth. Multivitamin capsule Take 1 capsule by mouth once daily. aspirin(ADULT LOW DOSE ASPIRIN 81 MG TAB, DELAYED RELEASE) Take one(1) tablet daily. No current facility-administered medications on file prior to visit. Social History Social History Tobacco Use Smoking status: Never Smokeless tobacco: Never Vaping Use Vaping Use: Never used Substance Use Topics Alcohol use: No Drug use: No Review of Symptoms REVIEW OF SYSTEMS See HPI EXAM: BP 108/64 Pulse 68 Resp 16 Wt 86.1 kg (189 lb 12.8 oz) SpO2 97% BMI 26.47 kg/m General Appearance: Well appearing, alert, in no acute distress, well-hydrated, well nourished.. Skin: Skin color, texture, turgor normal, no suspicious rashes or lesions. Lungs: Lungs clear to auscultation. No wheezing, rhonchi, rales.. Heart: Negative findings: regular rate and rhythm, Positive findings: 2/6 ANDREEA. Extremities: No deformities, edema, skin discoloration, clubbing or cyanosis. Good capillary refill. . Health Maintenance List RSV Vaccine(1 - 1-dose 60+ series) Never done Depression Assessment Never done Covid-19 Vaccine(2022- season) due on 01/12/2023 LDL Cholesterol due on 02/17/2023 DTaP,Tdap,Td Vaccine(2 - Td or Tdap) due on 09/16/2023 Annual PCP Team Chronic Disease Visit due on 11/29/2023 Serum Creatinine due on 12/21/2023 Colorectal Cancer Screening due on 01/17/2024 Diabetes Screening due on 12/20/2025 Lipid Screening due on 02/17/2027 Prostate Cancer Screening Discussion due on 02/17/2027 Influenza Vaccine Completed Hepatitis C Screening Completed HIV Screening Completed Shingrix Vaccine Completed Data reviewed Component Latest Ref Rng & Units 12/20/2022 WBC 3.70 - 11.00 k/uL 4.07 RBC 4.20 - 6.00 m/uL 4.56 Hemoglobin 13.0 - 17.0 g/dL 14.4 Hematocrit 39.0 - 51.0 % 41.9 MCV 80.0 - 100.0 fL 91.9 MCH 26.0 - 34.0 pg 31.6 MCHC 30.5 - 36.0 g/dL 34.4 RDW-CV 11.5 - 15.0 % 11.8 Platelet Count 150 - 400 k/uL 151 MPV 9.0 - 12.7 fL 8.4 (L) Neut% % 68.6 Abs Neut (ANC) 1.45 - 7.50 k/uL 2.79 Lymph% % 18.7 Abs Lymph 1.00 - 4.00 k/uL 0.76 (L) Vinton% % 11.3 Abs Vinton <0.87 k/uL 0.46 Eosin% % 1.0 Abs Eosin <0.46 k/uL 0.04 Baso% % 0.2 Abs Baso <0.11 k/uL <0.03 Immature Gran % % 0.2 IMMATURE GRANS (ABS) <0.10 k/uL <0.03 NRBC /100 WBC 0.0 Absolute nRBC <0.01 k/uL <0.01 DTYPE Auto Glucose 74 - 99 mg/dL 91 BUN 9 - 24 mg/dL 15 Creatinine 0.73 - 1.22 mg/dL 1.01 Sodium 136 - 144 mmol/L 134 (L) Potassium 3.7 - 5.1 mmol/L 4.4 Chloride 97 - 105 mmol/L 101 CO2 22 - 30 mmol/L 24 Anion Gap 9 - 18 mmol/L 9 Calcium 8.5 - 10.2 mg/dL 9.2 eGFR >=60 mL/min/1.73m 83 EKG: NSR with sinus arrhythmia at 70 bpm. Normal EKG. ASSESSMENT/PLAN: 1. Irregular heartbeat - ICD9: 427.9, ICD10: I49.9 (primary diagnosis) Normal EKG today. Normal exam aside from known murmur. Will obtain labs as ordered. Patient will consider holter and keep f/u with Dr. Whittington. - ECG COMPLETE 2. Coronary artery disease involving benton coronary artery of benton heart without angina pectoris - ICD9: 414.01, ICD10: I25.10 Asymptomatic. Continue current regimen. 3. Mitral valve prolapse - ICD9: 424.0, ICD10: I34.1 Likely cause of murmur. obtain echo as scheduled by cardiology. Nishant Mcqueen MD documented in this encounter [facility] 03-29-2023 Miscellaneous Notes Patient added to Dr. Mcqueen's schedule this afternoon. Jackelyn Cain Not sure how he can evaluate a heart rhythm at home. Echo is also looking at something unrelated. Spoke with pt and information listed below given. Pt verbalizes understanding. Pt asking if okay to have his monitor at home instead of coming in for an apt. Pt reports doing well, no chest pain or SOB. Doing normal activities. Pt has a ECHO scheduled at [facility] on 04/10/23 which is his yearly test he has done for cardiology. Pt reports he has an apt on 04-25-23 for his 6 month follow up with you. If you feel he still needs to come in now he will just let him know. Ayanna Manzo LPN LEFT MESSAGE FOR PATIENT TO CALL OFFICE. His circulation is ok. They did not his pulse was slightly irregular. May be a normal finding. Make sure no palpitations, chest pain etc. See if he can come in to see one of us to check his heart rate and rhythm. documented in this encounter [facility] 03-22-2023 History of Presen t illness Narrative [facility] Dr. Talia Charlton MD Professor, Department of Neurosurgery Director of Neurosurgical Oncology [facility] and [place] [id number] NEW PATIENT VISIT NOTES I. DIOMEDE DIAGNOSIS: Meningioma Seizure HISTORY OF PRESENT ILLNESS: Watson Rodriguez is a 62 y.o. male with PMH of AK, seizure, and parafalcine meningioma that presents to [facility] for consultation. Per patient chart, he had a seizure in 2020 and concern for a stroke. He had a MRI brain which revealed a large parasagittal mass compatible with a meningioma. He has undergone GKRS for treatment of his meningioma. 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 States OSH informed him surgery was not recommended for the meningioma due to risk. Reports ongoing right LE numbness and weakness which is stable. TREATMENT HISTORY: Radiation: 09-15-2020 through 08-20-2020; Gamma Knife Stereotactic Radiosurgery; 25 Gy in 5 fractions Treatment for cerebral radiation necrosis: Bevacizumab 02/27/22: 1st infusion. Bevacizumab 03/20/22: 2nd infusion. Bevacizumab 04/10/22: 3rd Infusion. Bevacizumab 05/01/22: 4th infusion II. PAST MEDICAL / SURGICAL HISTORY Past Medical History: Diagnosis Date AK (myocardial infarction) 01/12/2013 Seizure 07/27/2020 No past surgical history on file. Social History Socioeconomic History Marital status: Spouse name: Not on file Number of children: 4 Years of education: Not on file Highest education level: Not on file Occupational History Not on file Tobacco Use Smoking status: Never Smokeless tobacco: Never Substance and Sexual Activity Alcohol use: Never Drug use: Never Sexual activity: Not on file Other Topics Concern Not on file Social History Narrative Not on file Social Determinants of Health Financial Resource Strain: Not on file Food Insecurity: Not on file Transportation Needs: Not on file Physical Activity: Not on file Stress: Not on file Social Connections: Not on file Intimate Partner Violence: Not on file Housing Stability: Not on file Family History Problem Relation Age of Onset Cancer- Other Mother Other - Specify Father Coronary Artery Disease Brother Myocardial Infarction Brother No known problems Son No known problems Daughter III. ALLERGIES/ MEDICATIONS ALLERGIES: Atorvastatin MEDICATIONS: Current Outpatient Medications Medication Sig Multiple Vitamins-Minerals (Multivitamin Adults 50+) tablet Take 1 tablet by mouth daily. Aspirin (Aspir-Low) [address] tablet Take 1 tablet by mouth daily. clonazePAM [address] 1 tablet under tongue Every 8 hours as needed. levETIRAcetam 500 MG tablet Take 2 tablets by mouth 2 times daily. Rosuvastatin (Crestor) 40 MG tablet Take 1 tablet by mouth daily. IV. IMAGING MRI BRAIN WO/W IVCON 01/26/2023 Impression IMPRESSION: Stable appearance of the brain since 07/31/2022. . CURRENT CLINIC VISIT FINDINGS, EVALUATION, AND PLAN OF CARE REVIEW OF SYSTEMS: Review of Systems Constitutional: Negative for chills, fatigue and fever. Eyes: Negative for photophobia and visual disturbance. Cardiovascular: Negative for chest pain. Gastrointestinal: Negative for nausea and vomiting. Neurological: Positive for weakness and numbness. Negative for dizziness, tremors, seizures, speech difficulty and light-headedness. ASSESSMENT AND PHYSICAL EXAM: BP 125/62 Pulse 67 Temp 97.8 F (36.6 C) Resp 16 Ht 1.803 m (5' 11) Wt 85.1 kg (187 lb 9.6 oz) SpO2 95% BMI 26.16 kg/m Smoking Status Never Constitutional: well-developed, well-nourished, and in no distress. Pulm/Chest: Effort normal. No respiratory distress MSK: Grossly normal range of motion. No dependent edema in arms/legs. PSYCH: calm, cooperative. Mood and affect normal during conversation. NEUROLOGICAL: Alert and oriented x 4. II: Visual acuity intact, no diplopia III, IV, : PERRLA, EOM intact, no nystagmus V: facial sensation intact bilaterally to touch VII: Face symmetrical with good strength bilaterally VIII: Hearing intact bilaterally IX: Palate movement equal bilaterally XI: Shoulder shrug equal bilaterally XII: Tongue midline Speech: Clear Cerebellar: no tremor or dysmetria Sensory: intact symmetrically to light touch in bilateral upper and lower extremities Musculoskeletal: Strength 5/5 R U E and L Upper and Lower Extremities R LE 4/5 Gait and Coordination Gait: normal IMPRESSION AND PLAN OF CARE: Watson Rodriguez is a 62 y.o. male with PMH of AK, seizure, and parafalcine meningioma that presents to [facility] for consultation. He has undergone GKRS for treatment of his meningioma. 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 States OSH informed him surgery was not recommended for the meningioma due to associated risks. Reports right LE numbness and weakness, but is stable. Denies other neurological symptoms. Patient seen and evaluated by myself and Dr. Charlton, all relevant imaging reviewed. On exam, patient has right lower extremity weakness but is otherwise neurologically intact. MRI Brain shows a large frontoparietal parafalcine mass measuring approximately 4.8 x 3.8 x 3.6 cm . No indication for surgery from neurosurgery standpoint at this time due to neurologic stability and stability on imaging. Dr. Charlton discussed surgery options should the tumor or patient's symptoms progress. No additional Neurosurgical follow-up visits are needed at this time. Recommend the patient continue to follow with Neurology and Neuro Oncology. The patient was encouraged to call the office should new or worsening neurological symptoms occur or a new evaluation is required. Patient is in agreement with the plan. Plan: - Follow up with Neurology - Follow up [facility] Neuro [facility] - RTC- PRN Nurse Note: Review of Systems Constitutional: Negative for chills, fatigue and fever. HENT: Positive for tinnitus (B/L ears). Negative for hearing loss. Eyes: Negative. Negative for visual disturbance. Respiratory: Negative. Negative for cough and shortness of breath. Cardiovascular: Negative. Negative for chest pain and leg swelling. Gastrointestinal: Negative. Negative for constipation, diarrhea, nausea and vomiting. Genitourinary: Negative. Negative for difficulty urinating. Musculoskeletal: Negative. Negative for back pain and neck pain. Skin: Negative. Negative for rash. Neurological: Positive for numbness (RLE- intermittant). Negative for dizziness, tremors, seizures, speech difficulty, weakness, light-headedness and headaches. Hematological: Negative. Does not bruise/bleed easily. Psychiatric/Behavioral: Negative. Negative for confusion and decreased concentration. The patient is not nervous/anxious. Nursing Assessment: Physical Exam I saw and examined Watson Rodriguez today with my ANTHONY, Emiliana Perla. Watson Rodriguez is a 62 y.o. male with history of parafalcine meningioma. He was referred for a surgical opinion. He has undergone GKRS. He has had right LE numbness and weakness which are improved compared with prior but not back to baseline. Was told surgery was risky at OSH. 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 I agree with the history of present illness, past medical history, family history, social history, medication list, allergies listed, and current complaints. I have personally reviewed all labs and radiographs as well as medical records and I confirm the findings noted above. I agree with the assessment and plan as noted above. Awake, alert ox4 Eomfull Tml Fs Ma4e 5/5 x R LE 4+ The imaging reviewed today includes: MRI: Stable appearance of the brain since 07/31/2022. At this time, I feel we should proceed with ongoing serial imaging given overall neurologic stability and imaging stability. I discussed surgical options should the tumor or patient's symptoms progress. I discussed with the patient that risks of brain tumor surgery may include bleeding, infection, pneumonia, heart complications, blood clots, post operative pain, neurological deficit, and . The plan was developed mutually at the time of the clinic visit. The nurse practitioner/physician assistant corporation counsel and I have spoken with the patient and provided written and verbal instructions for the patient. The above note has been reviewed and I agree with the assessment and plan. Talia Charlton MD documented in this encounter [facility] 03-22-2023 Instructions Melinda Bell RN - 03/22/2023 1:00 PM EST We are here to assist you through your care at [facility] and [facility]! Your Care Team from today's visit included: Neurosurgeon- Dr. [place] Charlton Nurse Practitioner- Maia Asher APRN-MONO Nurse Practitioner- Emiliana Perla APRN-MONO Primary Nurse - NIMCO Daniel, RN The Neurosurgery clinic and scheduling staff can be reached at [phone]. Please call if you develop new or worsening symptoms, also with any additional questions regarding your visit today or if you need to contact the doctor. You will speak with a production planner scheduler, who will take a message and forward it to the clinical team. The primary nurse will return your call within 24 hours, assess your problem, consult with your medical team, and give direction on what should be done. We are not able to accommodate walk-in appointments. This is to provide the best possible care we can to all our patients. For any questions, comments, or concerns during after-hours (past 4:00pm M-F), weekends, and/or during a holiday please call [phone] and speak with the after-hours service. You will be connected to the neurosurgery resident manager generation. New or worsening neurological symptoms can include, but are not limited to: weakness, confusion, difficulty walking, vision/hearing/speech changes, seizures or extremity tremors, and persistent headaches. If it is an emergency you will need to go to your local ER. Ask them to fax your records to us so that we can update our team, fax number [phone]. If you experience seizures affecting the whole body, with or with out loss of consciousness, or stroke like symptoms please call 911 and get evaluated at local Emergency Room. The neurosurgery team typically does not refill medications. Please reach out to your primary care physician for any post-hospital or post- surgical medication refill requests. Family Medical Leave paperwork is available through your human resources department. Please allow 10-14 business days for completion of paperwork from our office. Documentation can be faxed to [phone]. Your feedback is important to our team. You may receive a survey in the mail following today's appointment. We would appreciate if you could take a few minutes to complete the survey and return it in the envelope provided. Your response will be confidential and used to enhance patient care and address areas of opportunity. Thank you The Oncology Distress Screening, or Patient-Reported Outcomes Measurement Information System (PROMIS) questionnaire, is a validated tool used for recording self-reported measures of global, physical, mental and social health for adults in the general population and those living with a chronic condition. You will receive this questionnaire via [employer]. Please complete so your providers at [facility] can better help you! documented in this encounter [facility] 03-19-2023 Instructions Miguelangel Spence APRN.F[employer]WORK[employer] - 03/19/2023 3:01 PM EST Images from the original note were not included. PLAN: - Continue Auto CPAP at current settings of 5-20 cmH2O. - Sleep apnea is presently well controlled! Keep up the great work! - Try the new headgear for Dreamwear full face mask : small headgear - Remember to clean your mask and equipment regularly, as directed. - Avoid use of ozone manager floor, SoClean devices, or UV cleaning devices - Avoid using alcohol or alcohol-containing products on your mask, as this may compromise the integrity of the mask materials and contribute to leak issues - Use only baby shampoo and water, mild dish soap and water, or CPAP-specific wipes to clean your supplies. - You should be eligible for new supplies approximately every 3-6 months, depending on your insurance coverage. Contact your Durable Medical Equipment (DME) company for new supplies as needed. - Follow up in 1 months with me virtually - If you are still having trouble staying asleep (particularly during first couple hours of sleep) we can discuss pressure increase - we want to improve leak first . PAP Supply Guidelines Below are the guidelines for reordering your supplies. You will be responsible for your deductible, co-payments, and out of pocket expenses. Item Medicare & Commercial Insurance Medicaid & HCAP Nasal Mask (no headgear) 1 every 3 months 1 per year Nasal Mask Cushion 1 every month 2 per year Full Face Mask (no headgear) 1 every 3 months 1 per year Full Face Mask Cushion 1 every month *Self-Pay Nasal Pillows 2 every month 2 per year Headgear 1 every 6 months 1 per year Chin Strap 1 every 6 months 2 per year Tubing 1 every 3 months 1 per year Filters: Reusable 1 every 6 months 4 per year Filters: Disposable 2 every month 1 per month Humidifier Chamber(disposable) 1 every 6 months *Self-Pay Magnesium can help with sleep, relaxation, headaches, mood, and RLS, and can keep stools regular. -If you have regular bowel movements or constipation, try Magnesium Citrate (best absorbed), Magnesium Oxide (best for constipation) or Magnesium Malate. -If you are diarrhea prone, try Mg Glycinate or Mg Taurate. -Calm, Pure Encapsulation, & [employer] are reliable brands. -Dose 250-300 mg and up to 900-1000mg daily. Do not exceed 1200 mg daily. -With any supplements or medications, if you develop any rashes, swelling, difficulty breathing or any other concerning symptoms, please seek immediate medical attention. documented in this encounter [facility] 03-19-2023 History of Presen t illness Narrative Images from the original note were not included. [facility] Follow up/ Established patient visit Date of last visit : 11/20/2022 Per last visit: IMPRESSION: Mell on cpap (primary encounter diagnosis) Watson Rodriguez is a very pleasant 62 year old male with PMH of MELL on CPAP, intracranial meningioma, seizure, CAD, nonrheumatic aortic valve stenosis, HLD, history of AK, MVP, myocardial ischemia, presence of coronary angioplasty implant and graft, tinnitus, bilateral hearing loss, colonic polyps, left renal atrophy, and stage I CKD. A Home Sleep Test (HST) performed on 01/21/2021 revealed at least moderate MELL (AHI of 19.2) that was associated with a minimum oxygen saturation of 87%; (3% hypopnea scoring; BMI 30.9). He was set up with auto CPAP ( 10) on 03/04/2021 via [employer]. Per download from 10/21/2022 - 11/19/2022, patient uses PAP therapy an average of 6.75 hours, and PAP use is >/= 4 hours on 97% of nights; Current setting of 5-20 cmH2O has reduced MELL to mild range (residual AHI 6.8); high mask leak 57.5 L/min. On review of his data last year, his AHI was well-controlled and mask leak was minimal. He has not been receiving supplies from [employer] d/t [employer] not carrying [employer], as well as high-deductible insurance plan. He does purchase mask cushions out of pocket and replace them monthly. He has not replaced headgear or tubing in at least several months. I suspect his high mask leak is the cause of his elevated residual AHI. PLAN: - Continue Auto CPAP at current settings of 5-20 cmH2O. - Your sleep apnea is still in the mild range, which may account for increased nocturia - I suspect this is due to a high mask leak, which was not present before - It is possible that your supplies need to be replaced (headgear and tubing) - If continuing current mask: - You can check your tubing for holes or purchase new tubing for your device - I recommend replacing headgear, as this is likely stretched/worn out - You may also try the new mask provided today (F&P Viri full face mask, size small/med) - Let me know how things are going as your proceed with new mask/supplies - Remember to clean your mask and equipment regularly, as directed. - Avoid use of ozone manager floor, SoClean devices, or UV cleaning devices - Avoid using alcohol or alcohol-containing products on your mask, as this may compromise the integrity of the mask materials and contribute to leak issues - Use only baby shampoo and water, mild dish soap and water, or CPAP-specific wipes to clean your supplies. - You should be eligible for new supplies approximately every 3-6 months, depending on your insurance coverage. Contact your Durable Medical Equipment (DME) company for new supplies as needed. - You may continue to purchase supplies out of pocket, or request them through your DME company - Order will be sent to [employer] for supplies: Juliana Reilly - Follow up with me in 3 months. Miguelangel Spence APRN.F[employer]WORK[employer] Here for follow up for MELL on CPAP Interval history : He tried the Viri FFM, but this felt more restrictive and caused pressure along sides of nose. He changed back to Dreamwear FFM. SLEEP APNEA A Home Sleep Test (HST) performed on 01/21/2021 revealed at least moderate MELL (AHI of 19.2) that was associated with a minimum oxygen saturation of 87%; (3% hypopnea scoring; BMI 30.9). Sleep apnea type : MELL, Most Recent Apnea-Hypopnea Index (AHI): 19.2 Treatment : PAP therapy DME: [employer] -- he has been purchasing supplies [facility] d/t [employer] not carrying Dreamwear FFM and having high-deductible insurance plan PAP History: Current PAP settin-20 cm H2O. Difficulties with AutoPAP: Finds himself waking 1-2 hours into sleep to void Reviewed objective PAP compliance data: Yes Per download from 02/17/2023 - 03/18/2023, patient uses PAP therapy an average of 6.75 hours, and PAP use is >/= 4 hours on 93 % of nights; Current setting of 5-20 cmH2O is controlling MELL well (residual AHI 3.8). Mask type: full face mask (Viri FFM and Dreamwear FFM) Mask issues: Viri caused pressure along sides of nose ; Dreamwear has high leak Uses chin strap: No Uses ramp function: Yes x 5 mins Uses humidity: Yes, distilled There is a perceived benefit by the patient. PATIENT-ENTERED QUESTIONNAIRE SLEEP SCORES Sleep Questions 03/15/2023 Reason for visit: Difficulty falling or staying asleep or poor sleep quality, Abnormal sleep/wake timing Average hours slept in 24 hours: - Average hours of CPAP per night: 6.5 Percent of nights CPAP used at least 4 hours: 95 Accidents or near accidents due to drowsy drivin [place] Sleepiness Scale 11/03/2021 11/16/2022 03/15/2023 Score 7 (No daytime sleepiness) 4 (No daytime sleepiness) 4 (No daytime sleepiness) PROMIS CAT Sleep Disturbance 11/03/2021 11/16/2022 03/15/2023 PROMIS Sleep Disturbance T-Score 44 (within normal limits) 49 (within normal limits) 52 (within normal limits) PROMIS Sleep Disturbance Percentile 73 % 54 % 42 % Insomnia Severity Index 07/16/2020 Score 5 Restless Leg Syndrome 03/07/2021 Score 7 PHQ-9 02/22/2022 11/16/2022 03/15/2023 Score 0 1 1 PROMIS Global Health - (T-Scores - the mean of general population = 50. Five points is a clinically meaningful difference.) 03/31/2022 11/16/2022 03/15/2023 Physical T-Score 50.8 47.7 44.9 Mental T-Score 53.3 59 56 PMH, PSH, SH: Reviewed SLEEP RELATED ROS Review of Systems ALLERGIES Allergen Reactions Atorvastatin Myalgia, Other: See Comments CURRENT MEDICATIONS: levETIRAcetam (KEPPRA) 500 mg tablet Take 2 tablets by mouth two times a day. dexAMETHasone (DECADRON) 2 mg tablet 2 mg the day prior to the flight, the day of the flight and the day after the flight. CPAP/BIPAP/OTHER PLEASE PROVIDE DREAMWEAR FFM (MEDIUM) Lifetime supplies for PAP tx, including patient preferred mask, head gear, heated tubing, humidity, filters, chin strap. Dx: Obstructive Sleep Apnea G47.33 DME: [employer] Fax download reports to [phone]. CPAP/BIPAP/OTHER Continue Auto CPAP with current settings of 5-20 cm H2O. Lifetime supplies for Auto CPAP, including patient preferred mask, head gear, heated tubing, humidity, filters, chin strap. Dx: Obstructive Sleep Apnea G47.33 DME: [facility] sildenafil (VIAGRA) 100 mg tablet Take 1 pill 1 hour prior to sexual activity on empty stomach CPAP Initiate Auto PAP @ 5-20 cm of water with humidification. Mask (per patient preference) optional chin strap (if indicated) , filters, tubing, humidifier and lifetime supplies. rosuvastatin (CRESTOR) 40 mg tablet Take 40 mg by mouth. Multivitamin capsule Take 1 capsule by mouth once daily. aspirin(ADULT LOW DOSE ASPIRIN 81 MG TAB, DELAYED RELEASE) Take one(1) tablet daily. clonazePAM orally disintegrating (KLONOPIN WAFER) 1 mg disintegrating tablet Dissolve 1 tablet under the tongue three times daily as needed (seizures) for up to 30 days. BP 121/68 (BP Site: Right Arm, BP Position: Sitting, BP Cuff Size: Regular Adult) Pulse 60 Temp 36.4 C (97.6 F) Resp 20 Ht 180.3 cm (5' 11) Wt 84.8 kg (187 lb) SpO2 98% BMI 26.08 kg/m PHYSICAL EXAMINATION: General appearance: NAD, well groomed HEENT: Normocephalic, atraumatic Neuro: Awake, alert, memory grossly intact, speech is fluent Respiratory: No increased work of breathing; able to speak in complete sentences Psych: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 July 26, [address] 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 The question is whether the stenosis, would be symptomatic, and also whether the edema around the tumor will be also from venous congestion. Dr. Colton Mason felt, that, also per his review the images, as well, that he would be unlikely for the stenosis of the surgical site the sinus to be symptomatic, and that the edema, is probably not related to the venous stenoses as the edema will be more prominent by now and it would show progressive venous congestion, and typically this will show also anteriorly. In summary, Dr. Colton Mason felt that the either occluded or stenosed SSS, is not symptomatic at this time, and no need for any therapeutic or other diagnostic interventions. I also asked for his input regarding that the patient is on dual antiplatelets, that is, aspirin and Plavix, and that he has been, on both medications for 2 years per his own decision for the past 2 years, even though his scada technician told him, that he stop Plavix 2 years ago, and whether he ought to take both antiplatelets, because of his superior sagittal sinus occlusion or stenosis. Dr. Colton Mason felt, that the patient, requires no therapeutic interventions, neither other diagnostic interventions, and that he would not recommend him to be on 2 antiplatelets, or not even on 1, if he did not need to be on antiplatelets for other reasons. However, the decision for the patient to continue on both antiplatelets, will be a decision to be made by his scada technician. Acknowledging, that the patient was told by his scada technician to stop dual antiplatelet therapy 3 years ago and to continue only on aspirin. I called Mr. Rodriguez and reviewed the above with him. He tells me, that he saw his scada technician and that he was told, that he does not need to be on dual antiplatelets and that he could go of his Plavix. He says that his scada technician is going to do a stress test in the future. 11: RIGHT LOWER EXTREMITY PARESTHESIAS. DISCUSSION He says that he has this almost persistent, sensation of tingling and needles sensation in his right foot, which it gets more pronounced when he stops on his foot. It is rather constant and is not paroxsymal in nature. He is wondering whether there is a pathology in his foot/leg. I told him that told him that this symptom is likely from the tumor, and it would be unlikely that he has a lumbosacral pathology to a peripheral process to explain this. He had a lumbar MRI in May 2020, and to my eye I see no significant pathology, and the report also shows no significant neuro foramina narrowing or spinal canal stenosis, other than some mild narrowing of the neural foramina form spurring at L4-5. THIS HAS IMPROVED. 03/20/22. This is still occurring several times a day, not getting better with MAMI. 11/06/22 Was on gabapentin from July 2 August 27, had no benefit, but had side effects. -Cold hands -Blurry vision After stopping this drug, 4 days after his vusion improved and returned to baseline. 01/29/23 He still has the burning pain almost daily, is present, most of the day, but not in the am around th 1st hour, but not at night, and not during sleep. The burning 3.5/10, not as severe. As how it was around a year ago. Had an USG of the RT foot,a and was told he will have an injection, perhaps a neuroma, but nor seen in the USG, perhaps a inflammation. Still not feeling. Cannot get his cardiac exercise as much as he wises due to the Rt foot paresthesias. 4 times a week, still cannot do this. Cognitively Ok sleeping Ok. No headaches. [facility]: support group, and they talk about phases of TBI, one session was on integrative neurology. The other symptom, is his higher hearing sensitivity is evident. Is there anything possibly, with Keprpa, that could cause the foot sensory discomfort. At times he has no pain or discomfort in his foot. He did take a movie, of his Rt foot, with a tonic posturing in a flexion, fashion. He did a trip late December. After his surgery, he was on dexamethasone (dex) at around 6-8 mg,a day was put on a taper, and it seems that he had more seizures. Dexamethasone has noted that his symptoms, improved. 12: BURNING SENSATION OF RIGHT LOWER EXTREMITY. HOWEVER HE SAYS THAT SINCE HE STARTED LACOSAMIDE, HE HAS HAD A BURNING SENSATION THAT COMES IN PAROXYSMAL AND STEREOTYPICAL FASHION, AND IS QUITE BOTHERSOME. The event can last 1-2 minutes, and can dissipate if he takes clonazepam, but it can take up to 30 minutes to go away. The patient provided to em with a log of symptom binh detailed fashion which I reviewed, and has been scanned into his chart. INTERIM EVENTS 02/01/22 Has yanira seen by podiatry Dr. Augustin Carrillo -Had EMG no abnormality -01/26/22 MRI Rt ankle also normal. -Dr. Neal neurology, has seen patient last year, recommended to do a nerve biopsy to exclude small fiver neuropathy. Mr. Wilder declined this evaluation. INTERIM EVENTS 04/24/22 Last event Apr 21, 2022 Improved in frequency, perhaps severity by 1/3 on bevacizumab (mami) 08/02/2022 Mr. Rodriguez is still having paresthesias of his right lower extremity, mainly distally. He is wondering whether Vimpat may be playing a role. I told him that the chances for this medication to be the culprit of this symptom is low, and is likely form the tumor. He wishes to see whether the dose of Vimpat can be lowered some, andsee how he does. 02/16/2023 Mr. Rodriguez is still having paresthesias of his right lower extremity, mainly distally. He is wondering whether Vimpat may be playing a role. He is now off Vimpat and he still having this symptom. This symptom are now the same as they were prior to bevacizumab (mami), he says. Note: several attempts have yanira made in terms of lowering or increasing dose, discontinuing AED, but this symptom has not improved, and rather persistent. He says that Dr. Carrillo, is planning to give him, steroids injections, sometime next week, to his right foot, to see whether this could help. He says that when bruno has taken oral steroids, this has helped, which may suggest that his symptom, is central in origin. Onme quesiton that I have, is whether his pain is a central type, like the type of pain, patients with thalamic lesions experience. The other question is whether he is or has Complex regional pain syndrome. The etiology, as the literature indicates, is unclear, but can also be seen in patient not only with peripheral nerve injuries, at times with no local injury and at times in patients with WEBBING TACKER lesions. I am wondering whether this is something that should be explored, for which I think the best tram to address this type of pain, if this is that case, would be pain medicine. The other possibility, is that his discomfort is an MSK issue that is secondary form the neurological impact of the tumor on his right lower extremity, that is, he had right foot weakness, and also has paresthesias, this could potentially cause, some sensory deficits, that could contribute to having no capacity to define, where his foot is in space, and injuring it as he walks, or uses it. This possible explanation is blayne to what is called Charcot joint or Charcot Neuropathic Osteoarthropathy, which can occur form peripheral neuropathy but also form central cause like a spinal cord injury. 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 PLAN: My own empiric practice. In order to decrease the possibility of steroid edema for flying, empirically recommended for the patient to take dexamethasone 2 mg daily, the day prior to the flight, the day of the flight, and the day after the flight. I told him, that he suffered an empiric approach but this is my practice. 13- DIAGNOSED WITH COVID-19 ON Sunday. Achy of muscle, and sore throat, last week and tested POS for COVID. He is getting better, no developing new symptoms. He contacted his PCP and recommended antivirals, but says that Dr. Acuna noted that there are interactions with other medications. The patient opted not to go on any antivirals. I advised him to keep Dr. Acuna appraised of his symptoms. HE HAS BEEN OFF DEXAMETHASONE FOR A WHILE. 14-PHOTOPHOBIA/PHONOPHOBIA. -Going on since after his stereotactic radiosurgery (Gamma knife) Discussion: May be a migraine like phenomenon - unlikely to be seizures. 15-Neck pain: 06/08/2022 Seen by PCP, had USG/C-spine x-rays, largely unremarkable. 16. Right mastoid area, pain upon palpation. Etiology unclear, no reported abnormality in this area. The pain is induced if he turns his head to the left. His PCP, did c-spine X-rays and also an USG with no definite pathology. I discussed whether a C-spine MRI should be done,a dn he indicated that he wants to see how he does. PCP to consider referral to ENT for possible mastoiditis. 17. Vision close up is lower, since on gabapentin started. Wishes to make no adjustments, and see hope he does. I advised to see eye doctor, acute specialist is OK. 18- H/O spina bifida occulta. He was diagnosed with this entity as a child. This past medical history was disclosed by Mr. Rodriguez until today. I am not sure whether this has any role in his Rt LE paresthesias., I discussed the performance of a lumbar spine MRI, but Mr. Rodriguez wishes to just watch for now. This imaged can be considered in the future of course. She has been evaluated from he peripheral perspective already (see No 19) 19-Early neuromuscular evaluations with neuromuscular neurologist Dr. Lakisha Junior in 07/2020 who recognized that his symptoms were not peripheral after work up that included an EMG/NCS, but rather central at the brain level, which triggered the performance of brain images with the discovery of his meningioma. 18. Second opinion with Dr. Pappas at [facility], 01/31/23: Mr. Rodriguez, tells me that his impression of Dr. Ghosh recommendations, is that the tumor is the culprit of his symptoms. Also that his case was presented to their Brain Tumor Board, and that partial resection could help his symptoms. = Therapy Status Data Form Past Medical History: PAST MEDICAL HISTORY Diagnosis Date Acute myocardial infarction of lateral wall (HCC) 2012 s/p LAD stent Benign neoplasm of colon Benign neoplasm of meninges (HCC) 08/02/2020 Hyperlipidemia Seizure (HCC) focal motor Past Surgical History: PAST SURGICAL HISTORY Procedure Laterality Date COLONOSCOPY FLX DX W/COLLJ SPEC WHEN PFRMD 10/29/2009 Colonoscopy HEMORRHOID;BAND LIGAT, SNGL/MUL 12/2016 PAST SURGICAL HISTORY OF Left 04/2017 left knee arthroscopy - meniscus PAST SURGICAL HISTORY OF 01/2013 PTCA x 1 - LAD Family History: FAMILY HISTORY Problem Relation Age of Onset Colon Cancer Mother ascending large intestine removed 2009 at 80 years old Colon Cancer Maternal Grandmother portion lower colon removed 60 years old, colostomy Social History Tobacco Use Smoking status: Never Smokeless tobacco: Never Vaping Use Vaping Use: Never used Substance Use Topics Alcohol use: No Drug use: No Allergies: Atorvastatin Current Outpatient Medications on File Prior to Visit Medication Sig levETIRAcetam (KEPPRA) 500 mg tablet Take 2 tablets by mouth twice daily. midazolam (NAYZILAM) 5 mg/spray (0.1 mL) nasal spray Use 1 spray in one nostril as needed for seizures. May repeat dose in alternate nostril after 10 minutes based on response and tolerability. Only take for seizures lasting more than 3 minutes or more than 3 seizures in an hour clonazePAM orally disintegrating (KLONOPIN WAFER) 1 mg disintegrating tablet Dissolve 1 tablet under the tongue three times daily as needed (seizures) for up to 30 days. lacosamide (VIMPAT) 100 mg tab Take 200 Mg BID sildenafil (VIAGRA) 100 mg tablet Take 1 pill 1 hour prior to sexual activity on empty stomach dexAMETHasone (DECADRON) 2 mg tablet 2 mg the day prior to the flight, the day of the flight and the day after the flight. CPAP Initiate Auto PAP @ 5-20 cm of water with humidification. Mask (per patient preference) optional chin strap (if indicated) , filters, tubing, humidifier and lifetime supplies. rosuvastatin (CRESTOR) 40 mg tablet Take 40 mg by mouth. Multivitamin capsule Take 1 capsule by mouth once daily. aspirin(ADULT LOW DOSE ASPIRIN 81 MG TAB, DELAYED RELEASE) Take one(1) tablet daily. No current facility-administered medications on file prior to visit. Review of systems: SEE ABOVE Constitutional: No recent fever or weight loss. Eyes: No history of glaucoma or cataracts. ENMT: No recent ear infection, nasal congestion, mouth sores or sore throat. See HPI CV: No history of chest pain, palpitations Right leg swelling, SEE HPI Respiratory: No history of SOB, asthma or recent cough. Gastrointestinal: No history of nausea, vomiting, dysphagia or abdominal pain. Genitourinary: No history of hematuria or dysuria. Musculoskeletal: No complaint of arthritis Has Right leg weakness, see HPI. Psychiatric: No history of hallucinations He feels somewhat anxious and also down emotionally as his neurological disability is affecting his QOL. ROS Neurological: SEE HPI No complaint of headache. Complaint of tinnitus, bilateral . No complaint of decreased hearing. No complaint of diplopia. No complaints of decreased visual acuity. Complaint of RT arm/leg numbness. Problem with RT limb coordination. No complaint of syncope Complaint of seizures, see HPI No loss of consciousness. Objective This is a virtual exam based on observational as below: No vital signs. NEURO: on observation, CN II-XII intact, no pronator drift, no tremor noted, self reported and/or on observation moves extremities equally, no self-reported sensory deficits and ambulating without difficulty. Patient has a degree of sensory ataxia in his left LE. Karnofsky performance status: 90 - Able to carry on normal activity, minor signs or symptoms of disease. ECOG performance status: 1 - Restricted in physically strenuous activity but ambulatory and able to carry out work of a light or sedentary nature, e.g., light house work or office work. PHQ 2 and 9 Total Scores 11/16/2022 PHQ-2 Score 0 PHQ-9 Score 1 Labs: CBC Latest Ref Rng & Units 04/10/2022 05/01/2022 12/20/2022 WBC 3.70 - 11.00 k/uL 4.33 4.80 4.07 RBC 4.20 - 6.00 m/uL 4.59 4.58 4.56 HEMOGLOBIN 13.0 - 17.0 g/dL 14.6 14.4 14.4 HEMATOCRIT 39.0 - 51.0 % 40.4 39.2 41.9 MCV 80.0 - 100.0 fL 88.0 85.6 91.9 MCH 26.0 - 34.0 pg 31.8 31.4 31.6 MCHC 30.5 - 36.0 g/dL 36.1(H) 36.7(H) 34.4 RDW-CV 11.5 - 15.0 % 11.9 11.8 11.8 PLATELETS 150 - 400 k/uL 169 177 151 MPV 9.0 - 12.7 fL 8.6(L) 8.6(L) 8.4(L) BASO% % 0.5 0.2 0.2 ABS NEUT (ANC) 1.45 - 7.50 k/uL 2.76 3.40 2.79 ABS LYMPH 1.00 - 4.00 k/uL 0.98(L) 0.90(L) 0.76(L) ABS MONO <0.87 k/uL 0.52 0.44 0.46 ABS EOSIN <0.46 k/uL 0.04 0.04 0.04 ABS BASO <0.11 k/uL <0.03 <0.03 <0.03 NRBC /100 WBC 0.0 0.0 0.0 DIFF TYPE - - - - CMP Latest Ref Rng & Units 04/21/2022 05/01/2022 12/20/2022 SODIUM 136 - 144 mmol/L - 133(L) 134(L) POTASSIUM 3.7 - 5.1 mmol/L - 4.3 4.4 CHLORIDE 97 - 105 mmol/L - 101 101 CO2 22 - 30 mmol/L - 27 24 GLUCOSE 74 - 99 mg/dL - 99 91 BUN 9 - 24 mg/dL - 14 15 CREATININE 0.73 - 1.22 mg/dL - 0.94 1.01 EGFR >=60 mL/min/1.73m - 91 83 EGFR-ALL OTHER RACES . - - - EGFR- - - - - PROTEIN, TOTAL 6.3 - 8.0 g/dL 6.9 6.2(L) - ALBUMIN 3.9 - 4.9 g/dL - 4.2 - CALCIUM, TOTAL 8.5 - 10.2 mg/dL - 8.9 9.2 BILIRUBIN, TOTAL 0.2 - 1.3 mg/dL - 0.5 - AST 14 - 40 U/L - 17 - ALT 10 - 54 U/L - 12 - ALKALINE PHOSPHATASE 38 - 113 U/L - 65 - Final Pathology: N/A PATIENT HAS NOT HAD A BIOPSY/SURGERY OF HIS BRAIN TUMOR. Imaging: Results MRI BRAIN WO/W IVCON (Order [id number]) Patient Info Patient Name Sex Watson Rose ([id number]) Male 1960 01/26/2022 12:11 PM - Radiology, Oru In Impression IMPRESSION: Minimal decrease in size of the parafalcine meningioma compared to the prior exam. Paper Goods Machine Operator: [facility] Transcribe Date/Time: Jan 26 2022 12:02P Dictated by : FREDI CARPENTER MD This examination was interpreted and the report reviewed and electronically signed by: FREDI CARPENTER MD on Jan 26 2022 12:09PM EST Adjacent T2/FLAIR hyperintense vasogenic edema/posttreatment changes in the left parietal centrum semiovale and lopez radiata are unchanged. Local mass effect is again noted and unchanged. No new intracranial enhancing lesions. Results MRI BRAIN WO/W IVCON (Order [id number]) Patient Info Patient Name Sex Watson Rose ([id number]) Male 1960 In Basket Actions Done Result Mgmt View in In Basket 07/31/2022 4:16 PM - Radiology, Oru In Impression IMPRESSION: Stable posterior frontoparietal parafalcine meningioma with invasion of the superior sagittal sinus. Paper Goods Machine Operator: [facility] Transcribe Date/Time: Jul 31 2022 3:51P Dictated by : REGGIE KIMBLE MD This examination was interpreted and the report reviewed and electronically signed by: REGGIE KIMBLE MD on Jul 31 2022 4:13PM EST Results MRI BRAIN WO/W IVCON (Acc#[id number]- [facility]) (Order [id number]) Patient Info Patient Name Sex Watson Rose ([id number]) Male 1960 In Basket Actions Done Result Mgmt View in In Basket 01/26/2023 12:43 PM - Radiology, Oru In Impression IMPRESSION: Stable appearance of the brain since 07/31/2022. Paper Goods Machine Operator: [facility] Transcribe Date/Time: Jan 26 2023 12:31P Dictated by : CLAUDIO FUNK MD This examination was interpreted and the report reviewed and electronically signed by: CLAUDIO FUNK MD on Jan 26 2023 12:41PM EST Results-Findings * * *Final Report* * * DATE OF EXAM: Jan 26 2023 10:50AM [id number] - MRI BRAIN WO/W IVCON / PROCEDURE REASON: Meningioma (HCC) * * * * Physician Interpretation * * * * EXAMINATION: MRI BRAIN WO/W IVCON CLINICAL HISTORY: Parasagittal meningioma. Prior gamma knife therapy . TECHNIQUE: Routine brain MRI protocol without and with contrast including diffusion images. MQ: [id number] Contrast: 17 mL Dotarem IV COMPARISON: 07/31/2022 RESULT: Acute Change: There is no evidence of an acute intracranial process. Hemorrhage: No evidence of prior parenchymal hemorrhage on SWI. Mass Lesion/ Mass Effect: Again noted is a large, lobulated extra-axial soft tissue mass along the falx in the region of the paracentral lobules which is predominantly left-sided but marginally extends to the falx to the right of midline compatible with the clinical history of a meningioma. This mass is again noted to be heterogeneously hyperintense on FLAIR, heterogeneously hypointense on T1 and T2, and demonstrates prominent heterogeneous enhancement following gadolinium administration. There continues to be a small cystic component along the dorsal lateral inferior margins and there continues to be confluent hyperintensity in the subjacent white matter of the posterior left frontal and parietal centrum semiovale without significant change. Overall, this mass measures approximately 4.8 x 3.8 x 3.6 cm in greatest AP, transverse, and CC dimensions, respectively. There continues to be moderate localized mass effect related underlying parasagittal left superior parietal lobule and mild compression of the right precuneus. There has continued clear invasion of the intervening superior sagittal sinus but there has uniform enhancement of the superior sagittal sinus dorsal to this compatible with patency. The superior sagittal sinus and ventral to this likely drainage through cortical veins. There is no clear evidence of an intracranial mass elsewhere. No abnormal parenchymal or leptomeningeal enhancement is appreciated otherwise following gadolinium administration. Chronic Change: The white matter is otherwise within normal limits of signal intensity for age. Parenchyma: No significant volume loss for age. The brain parenchyma is otherwise within normal limits of signal intensity and morphology. Ventricles: Normal caliber and morphology. Skull Base: Hypothalamic and pituitary region are grossly normal. Craniocervical junction is normal. No significant marrow replacement process. Vasculature: Persistent invasion of the superior sagittal sinus by the above-described meningioma as outlined above. Other: The visualized paranasal sinuses and mastoid air cells are clear. The orbits and extracranial soft tissues are unremarkable. Result History MRI BRAIN WO/W IVCON (Order #[id number]) on 01/26/2023 - Order Result History Report Result Information Status Provider Status Final result (01/26/2023 12:43 PM) Ordered Exam Performed Date and Time 01/26/2023 10:50 AM [facility] DIVISION OF RADIOLOGY [address] [facility] [id number] [place] Carmenza to P [facility] (supporting You) 01/17/23 8:[address] Alcala I have a request regarding my Jan 29 virtual appt with you. We will review my jan 26 MRI results. I have some questions to discuss going forward from current status. A brief background. Dr Sutton communicated in my initial consult in July 2020, prior to gamma knife that my meningioma after gamma will not regress in size and could possibly regrow after gamma over years. If problems arise from meningioma growth in future (after gamma) new & improved treatment options would be discussed at that time. Here is my request. Consult with Dr Sutton & others in department along with your own medical insights and educate me in my virtual appt on these questions. 1) what testing will be done going forward to monitor my meningioma? - I discussed, other imagine modalities, in addition to the primary imaging which is MRI. At times, other images like nuclear medicine images can be done, ii.esophoria, SPECT-Octreoscan, PET DOTATATE (poor availability), and or the MR based images, like MR spectroscopy, . MR anglogram etc. All images are considered to answer a question, and are done if required. 2) what clinical signs could occur if meningioma regrows? Seizures, neuropathy, numbness. In other words, what do I need to be aware of clinically if tumor regrows? We discussed that most likely symptoms the he has at present ma be more prominent or more frequent, including seizures, as well other symptoms like headaches, royer ensue. He is aware to connect wit us if any symptoms change, and if prominent/severe/frequent to seek immediate medical attention firs (going to the ED) and the call us after. 3) I have a consult with your referral to Dr Pappas at [facility]. Appt is feb 01. Asking his insight also into future management & options for meningioma. Since you know him, I would appreciate you communicate your insights to Dr Pappas prior to my appt. I told Mr. Serrano that the notes are posted in [facility], a that Dr. Pappas will have access to them. Assessment & Plan Mr. Watson Rodriguez is a 62-year-old male investigated for right leg numbness and weakness (couldn't stand on it) April 2020. Work up for lumbar spine cause non conclusive. He had an episode of seizure and MRI brain showed left parasagittal dural based lesion 4.9 x3.5x4.2 cm with small nodule extending to right side. His right leg still numb and weak. High step gait to avoid dragging his right lower extremity. He had GK-SRS to the tumor (25Gy/5fx) from 08/16/2020-08/20/[address] Sutton from Neurosurgery and Dr. Aviles [facility]. Mr. 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 He tolerated his treatments well. No side effects. His overall symptoms improved including his QOL. However, he still has persistent, right foot discomfort, a burning paresthesia. The etiology is likely from the brain tumor, as work up has failed to show a focal issue, and in fact his initial symptom was a right lower extremity discomfort/weakness. 02/16/23: -Symptoms before bevacizumab (mami) -He was able to walk 5K steps a day -Dexterity of his foot, prevent him form driving well -Was having more seizures, clonic. -Symptoms after bevacizumab (mami) -Gradually improved to now able to walk 10 K steps a day -Dexterity of his Rt foot, is better, so now he can drive -He has had less seizures overall, and is only on 1 antiepileptic drug (AED). -Right foot paresthesias, improved, but this improvement has not been sustained, as it has recurred. Persistent symptom: for the past 6 months or so gradually progressing, having, more pain in his right foot. This occurs daily, and has exacerbation here and there, particularly when he walks, or stands. It gets better if he elevated his leg. This discomfort is the same in intensity and frequency prior to bevacizumab (mami) His wish is to get rid of this discomfort. DISCUSSION: -He acknowledges, that MAMI has been effective in improving several symptoms, and his overall QOL is also better. Also, his right foot paresthesia, improved, and had sustained benefit for months, but as noted above this symptom has recurred. The question is whether another set of MAMI infusion will be of benefit, and if MAMI is used it would be to improve one symptom, but a symptom that is affecting Mr. Rodriguez QOL. I told him that another set of MAMI infusions can be considered. He also tolerated this medication with no side effects. The other question is whether his discomfort should have a different approach, like seeing pain medicine, to define whether he has Complex Regional Pain Syndrome (CRPS), and to address it as standard. He is getting local injections with steroids by his doctor of radiology next week, and the hope is that this will improve his symptom. He is seeing Dr. Sutton his neurosurgeon, with the question whether surgical intervention is feasible, and whether surgery could alleviate his symptom. This in the context that he had a second opinion at [facility], and he was told that perhaps surgery (debulking), could be helpful. In summary: My take is that it is Ok to continue watching clinically and radiologically. MAMI can always be reconsidered, but he has already had sustained improvement of a few symptoms, including his QOL which is better as attested by the patient; however he wishes his right foot pain to be improved, and better, gone. So, if MAMI is used it would be to address one symptom, his right foot pain. Mami could be considered if his pain is not better, even after having the steroid injection, or formally seeing the pain clinic. One thought is that perhaps he could have Complex regional Pain Syndrome, for which he could benefit by seeing Pain Medicine but by a physician with expertise with CRPS, with the goal to define whether he has this syndrome or not. And if so, then to be managed accordingly. Another option is hyperbaric chamber, if the culprit, is radionecrosis primarily. Surgery option, per Dr. Sutton. Of note: I re-review on 02/16/23 with the patient, post hoc visit clinic , the possibility of CRPS, and perhaps to have pain medicine to see him, but he would want to proceed first with podiatry management, and I think this is reasonable. Hence no referral to Pain Medicine for now. PLAN: 1-Meningioma (radiological diagnosis), S/P SRS-Gamma Knife: -Plan for brain MR w and w/o and perfusion, in 6 month's time, from the MRI done on 01/26/23. 2-Return visit: 1-2 days after the MRI. 3-Seizures: Continue Levetiracetam (Keppra). -Current LEV dose, 750 mg BID, since November 24, 2022. -Now off lacosamide (Vimpat) for around 2 months (). He is aware that he could have seizures, so he is taking all precautions, including to use his rescue medications, clonazepam, however when he uses it, seldomly he says, average twice to 4 times a month, he feels quite sleepy afterwards. He is to avoids engaging in activities that require his full alertness, until he is back to base line of alertness. 4-Levetiracetam levels around 2-4 weeks after patient has been on Levetiracetam (Keppra) at 750 mg BID. Blood to be drawn in am prior to first dose. 5-Rescue medications for breakthrough seizures using either midazolam nasal spray. Or clonazepam sublingual. Not to use both agents on the same day, can use either one in a 24-hour period. I discussed with the patient the potential benefits and side effects of this medications and he knows when and how to use them. 7-Paresthesias of the right leg. Still having right foot toes paresthesias, now more prominent, and more frequent. He is seeing his doctor of radiology, and says had an US of Rt foot, 01/19/23, but show no neuroma. He says that he is having steroid injections to right foot. 8-Driving a motor vehicle: He is driving a car now. 9-Follow-up with Dr. uStton: He is seeing Dr. Sutton next week Sunday, Feb 19, as the patient is enquiring whether surgical intervention is an option. 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 Sutton and Dr. 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 Not on steroids. Under my care he had 4/4 of his bevacizumab (mami) infusions every 3 weeks, which he completed on May 01, 2022, with benefit, see above. 10-Follow with his primary physician Dr. Whittington. 11-Follow up with scada technician Dr. Claudio Parks for cardiology care. 12-Follow up with Dr. Joe Santos, for nephology care, as patient has one functional kidney. 13. Follow with Dr. Carrillo, from podiatry. He is having steroid inj, in his right foot, the week of Feb 19. At the end, Mr. Rodriguez and his Damaris, NRACISA, verbalized understanding, and agreement with above recommendations and had no further questions or concerns for the moment. I encourage him to call me at my office if he has any questions about the above plan. I spent a total of 55 minutes which included preparing to see the patient, [id number] patient care, completing clinical documentation, obtaining and/or reviewing separately obtained history, performing a medically appropriate examination, counseling and educating the patient/family/caregiver, ordering medications, tests, or procedures, communicating with other HCPs (not separately reported), independently interpreting results (not separately reported), communicating results to the patient/family/caregiver, and care coordination (not separately reported). Yancy Centeno MD Staff Neuro-Oncologist [facility] CC: -Dr. Trev Sutton, Neurosurgery, [facility] -CC-Pipo Aviles MD, Radiation Oncology, [facility], [facility], [facility], [facility] -Joe Santos MD, Nephrology, [facility] Claudio Parks MD, Cardiology, [address] [place] [address], [address], [place] [address], PHONE: -Dr. Catarino Camacho, Epilepsy, [facility] -JORGE Alvarez, PCP, [address] [facility], [facility] [address], ; documented in this encounter [facility] 02-15-2023 Miscellaneous Notes Spoke with patient on the phone to notify him that Dr. Devlin needs to reschedule his VV at 0800 tomorrow morning 02/16/23 to 0900. Patient verbalized understanding. Will update patient's appointment schedule. Miriam Marinelli RN February 15, 2023 11:34 AM documented in this encounter [facility] 02-02-2023 Miscellaneous Notes PT scheduled for MSK US on 03/12/23 at 9:15 AM at [facility]. Visit Type: INJ ONLY 1 Visit Length: 60 MINUTES Order Name/Protocol: US ASP/INJ HAND/FINGER/FOOT/TOE JT BURSA RTx2; RT 2ND+3RD IMS BURSAL INJ'S. REFER TO US FINDINGS FROM 01/19/23 Preferred Provider: N/A Comment: An additional order of US ASP/INJ HAND/FINGER/FOOT/TOE JT BURSA RT was routed and is forthcoming. Location: [facility] Slot held: N/A documented in this encounter [facility] 02-01-2023 History of Presen t illness Narrative Nurse Note: Review of Systems Constitutional: Negative for chills, fatigue and fever. HENT: Positive for tinnitus (Since Gamma knife in August 2020). Negative for hearing loss. Eyes: Negative for visual disturbance. Respiratory: Negative for cough and shortness of breath. Cardiovascular: Negative for chest pain and leg swelling. Gastrointestinal: Negative for constipation, diarrhea, nausea and vomiting. Genitourinary: Negative for difficulty urinating. Musculoskeletal: Positive for neck pain (Occasional upper neck pain, is currently receiving daily PT.). Negative for back pain. Skin: Negative for rash. Neurological: Positive for seizures (States he has sensory seizures occasionally.). Negative for dizziness, tremors, speech difficulty, weakness, light-headedness, numbness and headaches. Burning in right foot. Hematological: Does not bruise/bleed easily. Psychiatric/Behavioral: Negative for confusion and decreased concentration. The patient is not nervous/anxious. Nursing Assessment: Physical Exam Received Avastin February, March, April of 2022. It did seem to help the right foot burning. Received Gamma knife in August 2020. TITLE: NEURO-ONCOLOGY CLINIC CONSULTATION LOCATION: [facility]COL[facility]Y CLINIC [facility] REASON FOR CONSULTATION: Meningioma TREATMENT HISTORY: Radiation: 09-15-2020 through 08-20-2020; Gamma Knife Stereotactic Radiosurgery; 25 Gy in 5 fractions Treatment for cerebral radiation necrosis: 02/27/22: 1st infusion. 03/20/22: 2nd infusion. 04/10/22: 3rd Infusion. 05/01/22: 4th infusion. Cc: here for an initial visit (second opinion) HISTORY OF PRESENTING ILLNESS: Mr Rodriguez is a 62 year old male with a diagnosis of presumed meningioma who was referred to the Neuro-Oncology Clinic and seen for an initial consultation on February 01, 2023. The patient had initial symptoms on April 14, 2020 with a complaint of right lower extremity numbness and weakness. He also appeared to have some footdrop on that side. The event happened after some heavy lifting and also shoveling snow. According to the patient's his very first symptom was that his leg went numb and he was unable to bear weight on it. He had imaging of the lumbosacral region which were not revealing but the presumptive diagnosis was one of L5 radiculopathy. He did have electromyography and nerve conduction studies performed but these were unrevealing. He went on to have an L5 transforaminal injection which did not help. His symptoms progressed and he was evaluated again on July 19, 2020. The patient experienced a jacksonian type seizure at that point when he had involuntary jerking of the right lowe extremity followed by an abnormal sensation that traveled up his right side. He got out of bed but could not stand and crawled to the bathroom. He took a nitroglycerin tablet as he thought this might be a heart attack. He then called his for help. Given that in retrospect his symptoms appeared fairly acutely a concern for stroke was raised and he had a brain MRI performed on July 27, 2020. This study revealed a large parasagittal mass arising from the falx and struggling both sides of the midline but more so on the left than the right side. The tumor was felt to be compatible with a meningioma. 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 The patient was referred to the [facility] and seen by Dr. Sutton. Gamma knife was recommended and the patient was treated between August 16 and August 20, 2020. The patient reports that about 4 months following Gamma Knife treatment he started developing unpleasant sensory symptoms in his right foot. The symptoms first appeared about 4 months after Gamma Knife and as he was being weaned off dexamethasone which had been started after the seizure. He was on dexamethasone until early part of October 2020. He had a seizure cluster in December 2020. He was visiting his daughter in [place] at the time but traveled back to [place] and was seen at [facility]. He was admitted to an EMU in late February 2022. He was taken off all medications during the admission and then restarted on keppra at the time of discharge. He was also started on zonegran. The following report on the 5 day monitoring was noted: This 5-day ambulatory EEG with video suggests mild left centroparietal dysfunction consistent with the patient's known meningioma. Twenty-four episodes of right foot tingling and/or burning were recorded, without clear EEG change. The duration of symptoms was unclear for most episodes, but one episode lasted less than one minute and another episode lasted 30 minutes. He was on zonegran for 2 months then taken off and started on lacosamide (with levetiracetam) that he weaned off in July 2022. Given that cerebral radiation necrosis was suspected, he was started on trental and vitamin E and subsequently started on bevacizumab. He received 4 infusions of this medication. He saw benefit with this treatment in terms of control of his sensory symptoms. He noted that the symptoms stayed low during and for some time after the treatment. However, the symptom started coming back slowly after that and at the time of the Clinic visit on 01-31-2023, he was back to where he was before. In Clinic on 01-31-2023, he reports that the tingling and burning sensations in the dorsum of his right foot is the main troublesome symptom. However he is also bother by tinnitus which is chronic and refractory to all therapy. PAST MEDICAL HISTORY: The past medical history is significant for coronary artery disease. The patient is status post acute myocardial infarction and left anterior descending artery stent, benign neoplasm of the colon, hyperlipidemia, intracranial mass believed to be meningioma and associated seizure disorder. There is also history of sleep apnea. PAST SURGICAL HISTORY: The past surgical history is significant for colonoscopy, hemorrhoid ligation, left knee arthroscopy and coronary artery stenting. MEDICATIONS: The medication list was reviewed and updated in the medical record ALLERGIES: The patient has reported an allergy to atorvastatin. FAMILY HISTORY: The family history is significant for colon cancer in his mother and maternal grandmother. SOCIAL HISTORY: The patient is . He denies alcohol use, cigarette smoking or illicit drug use. REVIEW OF SYSTEMS: A complete review of systems with the patient was otherwise negative. PHYSICAL EXAMINATION: KARNOFSKY PERFORMANCE STATUS: 80 General Appearance: The patient appears healthy and in no distress He is of extremely pleasant disposition. Heart: regular Respiratory: Symmetric chest expansion without tachypnea Abdomen: No distension noted Skin: No rashes or lesions Eyes: normal eye examination externally Neurologic: Mental status: awake and alert. Speech and language are without deficit or dysarthria. Cranial nerves: II: normal vision III, IV, : normal eye movements without diplopia VII: face is symmetric VIII: hearing intact to bedside IX, X: uvula and palate were midline XI: shoulder shrug was symmetric XII: tongue is midline and without atrophy or fasciculations Motor: there was no focal weakness noted Sensory examination: no deficit although he reports disturbed sensation over the dorsum of the right foot. Gait and stance: intact MEDICAL DECISION MAKING: DATA REVIEW: PATHOLOGY: There is no pathology for review in association with today's visit. NEUROIMAGING: The following imaging was among the data reviewed today: I personally reviewed the images associated with the brain MRI performed on 01-26-2023 This study was associated with the following report: Stable appearance of the brain since 07/31/2022. LABS: There were no labs associated with this visit DIAGNOSIS: Meningioma, presumed and based on imaging. The patient has received treatment with gamma knife in 2020. He has not had surgery. Treatment effect: the patient has received bevacizumab for treatment related changes on brain MRI following Gamma Knife therapy. Seizure disorder: The patient is on treatment for a focal seizure disorder in association with an intracranial mass believed to be meningioma. MANAGEMENT: The patient's case and imaging were discussed with him and his in detail at the time of the initial consultation on 01-31-2023. Specifically we reviewed two options: 1. The possibility that a debulking operation my help with his symptoms by reducing mass effect 2. If surgery was not possible (too risky), the possibility that his symptoms could be managed with different anticonvulsants and antidepressants in the neuropathic medication class. We mentioned pregabalin and duloxetine as examples of this possible strategy. With regards to the surgery question, I advised him that I would revert back to him after a Tumor Board discussion as well as a review of his imaging with our neurosurgeons. No changes in anticonvulsant therapy were made at the time of this visit. The total encounter time was 70 minutes on the date of service. Napoleon Pappas MD Drop Press Hand in Neurology Division of Neuro-oncology [address] [place] [address] documented in this encounter [facility] 02-01-2023 Instructions Julita Nuñez RN - 02/01/2023 10:00 AM EDT our Neuro-Oncology Team [facility] [address] [place] [address] Dr. Napoleon Pappas M.D. Nurse Practitioner: Evelia Galdamez CNP Primary Nurse: NIMCO Chavez, RN, LIZZETH WiseN, early interventionist Office ZACHARIAH Lange Financial Aid Coordinator Neuro-Oncology Clinic Hours: Sunday-Sunday 8:30 - 4:30 Neuro-Oncology Office Information Regular business hours are Sunday through Sunday 8:30 a.m. to 4:30 p.m. Please call [phone] for information related to clinic appointments, scheduled tests, or for general office related questions or concerns. Messages for the physicians, nurses and other team members can be taken at this phone number and will be routed as appropriate. Emergency assistance is available after hours by calling the office at [phone] and the answering service will reach your doctor or the physician manager generation. Please allow at least 48 hours for Prescription refill transactions. Please allow 10-14 business days for completion of FMLA and other disability paperwork. We will mail the completed paperwork to you or you may pick it up at the desk. It is your responsibility to return the FMLA or disability paperwork to your employer. If you need to mail a CD or paperwork to the office please mail to : NEURO-ONCOLOGY DEPARTMENT [address] [place] [address] Patient education videos are available on The [employer] website. These videos may help you to better understand your cancer or cancer treatments. The videos also give tips on how to care for yourself to help you feel your best. Here is the link to watch these videos: [email or web address] mark. [employer] [facility] Brain Tumor Support [facility] Facilitators: KYLAH Ballard and KISHAN Lange, ANNA MARIES Next Meeting: Every Third Sunday of the month 3:00 pm- 4:00 pm. This event is now virtual and can be accessed through [employer]. Please visit [email or web address] to register or call [employer] at [phone] for more information. The Brain Tumor support group is available for anyone diagnosed with a brain tumor and their support person. This is an opportunity for those impacted by a brain tumor to offer support to one another by sharing their experiences and learning more about life after diagnosis. documented in this encounter [facility] 01-30-2023 History of Presen t illness Narrative Images from the original note were not included. FOLLOW UP PODIATRIC OFFICE VISIT Chief Complaint: This 62 year old who presents for follow up:right foot pain Patient presents to clinic for follow-up right foot pain Patient complains of intermittent pain to the plantar aspect of right foot. Patient states that when he experiences pain, he has pain to the ball of his right foot He states that he has no pain in the morning. The longer he is on his foot, the more pain he will experience. His pain is intermittent. Sometimes, he has pain with walking long distance while other times, he has no pain. He states the pain is tolerable currently. When present, the pain is located to the ball of his foot, most notably the 2-4th toes PAIN EVALUATION 01/30/2023 1032 Pain Level: 2 can get 8/10 Pain Location: Foot-Right Description: Stabbing;Sharp;Burning Duration Units: Months Frequency: Intermittent Intervention/Comfort measure: Relaxation;Reposition Hemoglobin A1C Date Value Ref Range Status 04/21/2022 4.8 4.3 - 5.6 % Final Comment: [place] [employer] guidelines indicate that patients with HgbA1c in the range 5.7-6.4% are at increased risk for development of diabetes, and intervention by lifestyle modification may be beneficial. HgbA1c greater or equal to 6.5% is considered diagnostic of diabetes. 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 dexAMETHasone (DECADRON) 2 mg tablet 2 mg the day prior to the flight, the day of the flight and the day after the flight. CPAP/BIPAP/OTHER PLEASE PROVIDE DREAMWEAR FFM (MEDIUM) Lifetime supplies for PAP tx, including patient preferred mask, head gear, heated tubing, humidity, filters, chin strap. Dx: Obstructive Sleep Apnea G47.33 DME: [facility] Fax download reports to [phone]. CPAP/BIPAP/OTHER Continue Auto CPAP with current settings of 5-20 cm H2O. Lifetime supplies for Auto CPAP, including patient preferred mask, head gear, heated tubing, humidity, filters, chin strap. Dx: Obstructive Sleep Apnea G47.33 DME: [facility] levETIRAcetam (KEPPRA) 500 mg tablet TAKE ONE AND ONE-HALF TABLETS TWICE A DAY sildenafil (VIAGRA) 100 mg tablet Take 1 pill 1 hour prior to sexual activity on empty stomach CPAP Initiate Auto PAP @ 5-20 cm of water with humidification. Mask (per patient preference) optional chin strap (if indicated) , filters, tubing, humidifier and lifetime supplies. rosuvastatin (CRESTOR) 40 mg tablet Take 40 mg by mouth. Multivitamin capsule Take 1 capsule by mouth once daily. aspirin(ADULT LOW DOSE ASPIRIN 81 MG TAB, DELAYED RELEASE) Take one(1) tablet daily. No current facility-administered medications for this visit. ALLERGIES Allergen Reactions Atorvastatin Myalgia, Other: See Comments PAST SURGICAL HISTORY Procedure Laterality Date COLONOSCOPY FLX DX W/COLLJ SPEC WHEN PFRMD 10/29/2009 Colonoscopy HEMORRHOID;BAND LIGAT, SNGL/MUL 12/2016 PAST SURGICAL HISTORY OF Left 04/2017 left knee arthroscopy - meniscus PAST SURGICAL HISTORY OF 01/2013 PTCA x 1 - LAD Physical Exam: OBJECTIVE: Constitutional: Pt is a well developed 62 year old male who is alert, oriented, cooperative and in no apparent distress. Eyes: Following during examination. No redness or drainage. Respiratory: RR normal and nonlabored. Even breathing. No evidence of distress. Psychology: Patient is engaged during conversation. Normal affect and mood. Does not appear depressed or anxious. NVSI unchanged from previous visit. Dermatological: Nails 1-5 b/l are normal. Webspaces clean and dry 1-4 b/l. Skin appears well hydrated and supple. good color, texture, turgor. No open lesions present. No callosities present. Musculoskeletal/Orthopaedic: Patient has pain to palpation of 2nd and 3rd interspace of right foot + shaun sign of right 2nd and 3rd interspace ASSESSMENT: (M77.51) Bursitis of right foot (primary encounter diagnosis) (R20.0) Numbness (D36.10) Neuroma PLAN: Discussed pain in right foot. Reviewed ultrasound report. + bursitis of right 2nd and 3rd interspace. This bursitis likely placing pressure on digital nerve Would continue with inserts I do feel steroid injection to the bursae under ultrasound can be of great benefit. Will place order for ultrasound guided injection of right foot Augustin Carrillo DPM AMB ROOMING INTAKE FLOWSHEET DATA Pain Pain Level: 2 (can get 8/10) Pain Location: Foot-Right Description: Stabbing, Sharp, Burning Duration Units: Months Frequency: Intermittent Intervention/Comfort measure: Relaxation, Reposition Patient presents with: Right Foot - Established Patient, Follow Up, Pain Patient presents for follow up of right foot pain and to discuss options. Had ultrasound done 01/19/23. Still having pain. documented in this encounter [facility] 01-29-2023 History of Presen t illness Narrative Images from the original note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 Medication Sig levETIRAcetam (KEPPRA) 500 mg tablet Take 2 tablets by mouth twice daily. midazolam (NAYZILAM) 5 mg/spray (0.1 mL) nasal spray Use 1 spray in one nostril as needed for seizures. May repeat dose in alternate nostril after 10 minutes based on response and tolerability. Only take for seizures lasting more than 3 minutes or more than 3 seizures in an hour clonazePAM orally disintegrating (KLONOPIN WAFER) 1 mg disintegrating tablet Dissolve 1 tablet under the tongue three times daily as needed (seizures) for up to 30 days. lacosamide (VIMPAT) 100 mg tab Take 200 Mg BID sildenafil (VIAGRA) 100 mg tablet Take 1 pill 1 hour prior to sexual activity on empty stomach dexAMETHasone (DECADRON) 2 mg tablet 2 mg the day prior to the flight, the day of the flight and the day after the flight. CPAP Initiate Auto PAP @ 5-20 cm of water with humidification. Mask (per patient preference) optional chin strap (if indicated) , filters, tubing, humidifier and lifetime supplies. rosuvastatin (CRESTOR) 40 mg tablet Take 40 mg by mouth. Multivitamin capsule Take 1 capsule by mouth once daily. aspirin(ADULT LOW DOSE ASPIRIN 81 MG TAB, DELAYED RELEASE) Take one(1) tablet daily. No current facility-administered medications on file prior to visit. Review of systems: SEE ABOVE Constitutional: No recent fever or weight loss. Eyes: No history of glaucoma or cataracts. ENMT: No recent ear infection, nasal congestion, mouth sores or sore throat. See HPI CV: No history of chest pain, palpitations Right leg swelling, SEE HPI Respiratory: No history of SOB, asthma or recent cough. Gastrointestinal: No history of nausea, vomiting, dysphagia or abdominal pain. Genitourinary: No history of hematuria or dysuria. Musculoskeletal: No complaint of arthritis Has Right leg weakness, see HPI. Psychiatric: No history of hallucinations He feels somewhat anxious and also down emotionally as his neurological disability is affecting his QOL. ROS Neurological: SEE HPI No complaint of headache. Complaint of tinnitus, bilateral . No complaint of decreased hearing. No complaint of diplopia. No complaints of decreased visual acuity. Complaint of RT arm/leg numbness. Problem with RT limb coordination. No complaint of syncope Complaint of seizures, see HPI No loss of consciousness. Objective This is a virtual exam based on observational as below: No vital signs. NEURO: on observation, CN II-XII intact, no pronator drift, no tremor noted, self reported and/or on observation moves extremities equally, no self-reported sensory deficits and ambulating without difficulty. Patient has a degree of sensory ataxia in his left LE. Karn[place]sky performance status: 90 - Able to carry on normal activity, minor signs or symptoms of disease. ECOG performance status: 1 - Restricted in physically strenuous activity but ambulatory and able to carry out work of a light or sedentary nature, e.g., light house work or office work. PHQ 2 and 9 Total Scores 11/16/2022 PHQ-2 Score 0 PHQ-9 Score 1 Labs: CBC Latest Ref Rng & Units 04/10/2022 05/01/2022 12/20/2022 WBC 3.70 - 11.00 k/uL 4.33 4.80 4.07 RBC 4.20 - 6.00 m/uL 4.59 4.58 4.56 HEMOGLOBIN 13.0 - 17.0 g/dL 14.6 14.4 14.4 HEMATOCRIT 39.0 - 51.0 % 40.4 39.2 41.9 MCV 80.0 - 100.0 fL 88.0 85.6 91.9 MCH 26.0 - 34.0 pg 31.8 31.4 31.6 MCHC 30.5 - 36.0 g/dL 36.1(H) 36.7(H) 34.4 RDW-CV 11.5 - 15.0 % 11.9 11.8 11.8 PLATELETS 150 - 400 k/uL 169 177 151 MPV 9.0 - 12.7 fL 8.6(L) 8.6(L) 8.4(L) BASO% % 0.5 0.2 0.2 ABS NEUT (ANC) 1.45 - 7.50 k/uL 2.76 3.40 2.79 ABS LYMPH 1.00 - 4.00 k/uL 0.98(L) 0.90(L) 0.76(L) ABS MONO <0.87 k/uL 0.52 0.44 0.46 ABS EOSIN <0.46 k/uL 0.04 0.04 0.04 ABS BASO <0.11 k/uL <0.03 <0.03 <0.03 NRBC /100 WBC 0.0 0.0 0.0 DIFF TYPE - - - - CMP Latest Ref Rng & Units 04/21/2022 05/01/2022 12/20/2022 SODIUM 136 - 144 mmol/L - 133(L) 134(L) POTASSIUM 3.7 - 5.1 mmol/L - 4.3 4.4 CHLORIDE 97 - 105 mmol/L - 101 101 CO2 22 - 30 mmol/L - 27 24 GLUCOSE 74 - 99 mg/dL - 99 91 BUN 9 - 24 mg/dL - 14 15 CREATININE 0.73 - 1.22 mg/dL - 0.94 1.01 EGFR >=60 mL/min/1.73m - 91 83 EGFR-ALL OTHER RACES . - - - EGFR- - - - - PROTEIN, TOTAL 6.3 - 8.0 g/dL 6.9 6.2(L) - ALBUMIN 3.9 - 4.9 g/dL - 4.2 - CALCIUM, TOTAL 8.5 - 10.2 mg/dL - 8.9 9.2 BILIRUBIN, TOTAL 0.2 - 1.3 mg/dL - 0.5 - AST 14 - 40 U/L - 17 - ALT 10 - 54 U/L - 12 - ALKALINE PHOSPHATASE 38 - 113 U/L - 65 - Final Pathology: N/A PATIENT HAS NOT HAD A BIOPSY OF HIS BRAIN TUMOR. Imaging: Results MRI BRAIN WO/W IVCON (Order [id number]) Patient Info Patient Name Sex Watson Rose ([id number]) Male 1960 01/26/2022 12:11 PM - Radiology, Oru In Impression IMPRESSION: Minimal decrease in size of the parafalcine meningioma compared to the prior exam. Paper Goods Machine Operator: NICOL Transcribe Date/Time: Jan 26 2022 12:02P Dictated by : FREDI CARPENTER MD This examination was interpreted and the report reviewed and electronically signed by: FREDI CARPENTER MD on Jan 26 2022 12:09PM EST Adjacent T2/FLAIR hyperintense vasogenic edema/posttreatment changes in the left parietal centrum semiovale and lopez radiata are unchanged. Local mass effect is again noted and unchanged. No new intracranial enhancing lesions. Results MRI BRAIN WO/W IVCON (Order [id number]) Patient Info Patient Name Sex Watson Rose ([id number]) Male 1960 In Basket Actions Done Result Mgmt View in In Basket 07/31/2022 4:16 PM - Radiology, Oru In Impression IMPRESSION: Stable posterior frontoparietal parafalcine meningioma with invasion of the superior sagittal sinus. Paper Goods Machine Operator: NICOL Transcribe Date/Time: Jul 31 2022 3:51P Dictated by : REGGIE KIMBLE MD This examination was interpreted and the report reviewed and electronically signed by: REGGIE KIMBLE MD on Jul 31 2022 4:13PM EST Results MRI BRAIN WO/W IVCON (Acc#[id number] [facility]) (Order [id number]) Patient Info Patient Name Sex Watson Rose ([id number]) Male 1960 In Basket Actions Done Result Mgmt View in In Basket 01/26/2023 12:43 PM - Radiology, Oru In Impression IMPRESSION: Stable appearance of the brain since 07/31/2022. Paper Goods Machine Operator: PSCB Transcribe Date/Time: Jan 26 2023 12:31P Dictated by : CLAUDIO FUNK MD This examination was interpreted and the report reviewed and electronically signed by: CLAUDIO FUNK MD on Jan 26 2023 12:41PM EST Results-Findings * * *Final Report* * * DATE OF EXAM: Jan 26 2023 10:50AM WR 0295 - MRI BRAIN WO/W IVCON / PROCEDURE REASON: Meningioma (HCC) * * * * Physician Interpretation * * * * EXAMINATION: MRI BRAIN WO/W IVCON CLINICAL HISTORY: Parasagittal meningioma. Prior gamma knife therapy completed. TECHNIQUE: Routine brain MRI protocol without and with contrast including diffusion images. MQ: [id number] Contrast: 17 mL Dotarem IV COMPARISON: 07/31/2022 RESULT: Acute Change: There is no evidence of an acute intracranial process. Hemorrhage: No evidence of prior parenchymal hemorrhage on SWI. Mass Lesion/ Mass Effect: Again noted is a large, lobulated extra-axial soft tissue mass along the falx in the region of the paracentral lobules which is predominantly left-sided but marginally extends to the falx to the right of midline compatible with the clinical history of a meningioma. This mass is again noted to be heterogeneously hyperintense on FLAIR, heterogeneously hypointense on T1 and T2, and demonstrates prominent heterogeneous enhancement following gadolinium administration. There continues to be a small cystic component along the dorsal lateral inferior margins and there continues to be confluent hyperintensity in the subjacent white matter of the posterior left frontal and parietal centrum semiovale without significant change. Overall, this mass measures approximately 4.8 x 3.8 x 3.6 cm in greatest AP, transverse, and CC dimensions, respectively. There continues to be moderate localized mass effect related underlying parasagittal left superior parietal lobule and mild compression of the right precuneus. There has continued clear invasion of the intervening superior sagittal sinus but there has uniform enhancement of the superior sagittal sinus dorsal to this compatible with patency. The superior sagittal sinus and ventral to this likely drainage through cortical veins. There is no clear evidence of an intracranial mass elsewhere. No abnormal parenchymal or leptomeningeal enhancement is appreciated otherwise following gadolinium administration. Chronic Change: The white matter is otherwise within normal limits of signal intensity for age. Parenchyma: No significant volume loss for age. The brain parenchyma is otherwise within normal limits of signal intensity and morphology. Ventricles: Normal caliber and morphology. Skull Base: Hypothalamic and pituitary region are grossly normal. Craniocervical junction is normal. No significant marrow replacement process. Vasculature: Persistent invasion of the superior sagittal sinus by the above-described meningioma as outlined above. Other: The visualized paranasal sinuses and mastoid air cells are clear. The orbits and extracranial soft tissues are unremarkable. Result History MRI BRAIN WO/W IVCON (Order #[id number]) on 01/26/2023 - Order Result History Report Result Information Status Provider Status Final result (01/26/2023 12:43 PM) Ordered Exam Performed Date and Time 01/26/2023 10:50 AM [facility] DIVISION OF RADIOLOGY [address] [facility] [address] Watson Rosemary Rodriguez to [facility] (supporting You) 01/17/23 8:[address] Alcala I have a request regarding my Jan 29 virtual appt with you. We will review my jan 26 MRI results. I have some questions to discuss going forward from current status. A brief background. Dr Sutton communicated in my initial consult in July 2020, prior to gamma knife that my meningioma after gamma will not regress in size and could possibly regrow after gamma over years. If problems arise from meningioma growth in future (after gamma) new & improved treatment options would be discussed at that time. Here is my request. Consult with Dr Sutton & others in department along with your own medical insights and educate me in my virtual appt on these questions. 1) what testing will be done going forward to monitor my meningioma? - I discussed, other imagine modalities, in addition to the primary imaging which is MRI. At times, other images like nuclear medicine images can be done, ii.esophoria, SPECT-Octreoscan, PET DOTATATE (poor availability), and or the MR based images, like MR spectroscopy, . MR anglogram etc. All images are considered to answer a question, and are done if required. 2) what clinical signs could occur if meningioma regrows? Seizures, neuropathy, numbness. In other words, what do I need to be aware of clinically if tumor regrows? We discussed that most likely symptoms the he has at present ma be more prominent or more frequent, including seizures, as well other symptoms like headaches, royer ensue. He is aware to connect wit us if any symptoms change, and if prominent/severe/frequent to seek immediate medical attention firs (going to the ED) and the call us after. 3) I have a consult with your referral to Dr Pappas at [facility]. Appt is feb 01. Asking his insight also into future management & options for meningioma. Since you know him, I would appreciate you communicate your insights to Dr Pappas prior to my appt. I told Mr. Serrano that the notes are posted in [facility], a that Dr. Pappas will have access to them. Assessment & Plan Mr. Watson Rodriguez is a 62-year-old male investigated for right leg numbness and weakness (couldn't stand on it) April 2020. Work up for lumbar spine cause non conclusive. 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 His right leg still numb and weak. High step gait to avoid dragging his right lower extremity. He had GK-SRS to the tumor (25Gy/5fx) from 08/16/2020-08/20/2020. Mr. 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 He tolerated his treatments well. No side effects. His overall symptoms improved including his QOL. PLAN: 1-Meningioma: -Plan for brain MR w and w/o and perfusion, in 6 month's time. 2-Return visit: -The patient wishes to meet with me after he meets with Dr. Pappas, neuro-oncologist at [facility], in around 2 weeks time. He said that he will call our clinic to schedule that appointment at a mutually convenient time. 3-Seizures: Continue Levetiracetam (Keppra) -Patient dropped the dose to 750 mg BID, since November 24, 2022. -Now off lacosamide (Vimpat) for around 2 months (). All of his symptoms did not change, more importantly, he has not had recurrent seizures (01/29/23). He is aware that he could have seizures, so he is taking all precautions, including to use his rescue medications, clonazepam, however when he uses it, seldomly he says, average twice a month, he feels quite sleepy. He avoids to engage in activities that require his full alertness, until he is back to base line of alertness. 4-Levetiracetam levels around 2 weeks after patient has been on Levetiracetam (Keppra) at 750 mg BID. Blood to be drawn in am prior to first dose. 5-Rescue medications for breakthrough seizures using either midazolam nasal spray. Or, clonazepam sublingual. Not to use both agents on the same day, can use either one in a 24 hour period. I discussed with the patient the potential benefits and side effects of this medications and he knows when and how to use them. 7-Paresthesias of right leg. But still having right foot toes paresthesias. He is seeing his doctor of radiology, and says had an US of Rt foot, 01/19/23. He says that tentatively he may get some steroids injections to Rt foot. 8-Driving a motor vehicle: He is driving a car now. 9-Follow-up with Dr. Sutton and Dr. 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 10-Follow with his primary physician Dr. Whittington. 11-Follow up with scada technician Dr. Claudio Parks for cardiology care. 12-Follow up with Dr. Joe Santos, for nephology care, as patient has one functional kidney. ORDERS (01/29/23) Associate Signed Orders Orders Signed This Visit (1) LEVETIRACETAM Future, Expected: 01/29/2023, Expires: 03/31/2023, Lab, Routine, Specimen Sources - BLOOD;, Resulting Agency - [facility], Dx: 1. Meningioma (HCC) 2. Seizures (HCC) At the end, Mr. Rodriguez and his Damaris, NARCISA, verbalized understanding, and agreement with above recommendations and had no further questions or concerns for the moment. I encourage him to call me at my office if he has any questions about the above plan. I spent a total of 45 minutes which included preparing to see the patient, [id number] patient care, completing clinical documentation, obtaining and/or reviewing separately obtained history, performing a medically appropriate examination, counseling and educating the patient/family/caregiver, ordering medications, tests, or procedures, communicating with other HCPs (not separately reported), independently interpreting results (not separately reported), communicating results to the patient/family/caregiver, and care coordination (not separately reported). Yancy Centeno MD Staff Neuro-Oncologist [facility] CC: -Dr. Trev Sutton, Neurosurgery, [facility] -CC-Pipo Aviles MD, Radiation Oncology, [facility], [facility], [facility], [facility] -Joe Santos MD, Nephrology Claudio Parks MD [id number], [address] [place] [address] PHONE: -Dr. Catarino Camacho, Epilepsy, [facility] PCP Breanne Whittington MD PCP - General Family Practice 12/17/2020 [address] [facility] [address] ; documented in this encounter [facility] 01-26-2023 History of Presen t illness Narrative Radiology Service Progress Note DATE OF SERVICE: January 26, 2023 TIME: 9:55 AM PATIENT IDENTITY VERIFICATION COMPLETED USING TWO (2) STANDARD IDENTIFIERS: Name and Date of confirmed by patient verbally. FALL SCREENING: Has the patient had 2 falls in the last year or 1 fall with injury or currently using an Ambulatory Assistive Device (Walker, Cane, Wheelchair, Crutches, etc.)? No PATIENT GENDER DATA: Male PATIENT RELEVANT IMPLANT DATA REVIEWED: Yes ALLERGIES: Reviewed and unchanged CONTRAST ALLERGY: NO. EXAM: MRI - CONTRAST TYPE: GROUP II PERIPHERAL IV DATA: Ambulatory: A peripheral IV was started in the Left antecubital site with a Angio cath: 22 gauge. RADIOLOGY DEPARTMENT: MR; Exam(s) Completed: Head: Routine Brain SIGNATURE: RT Devonte(R) PATIENT NAME: Watson Rodriguez DATE: January 26, 2023 TIME: 9:55 AM documented in this encounter [facility] 01-16-[address] [facility] 01-16-[address] [facility] 01-16-2023 History and physi karina note Note Date/Time January 16, 2023 9:45am [facility] Medical Records Department [address] [place] [address] History & Physical Exam 01/16/23 0945 MR#: [id number] Acct: [id number] Name: WATSON RODRIGUEZ Rep #:[id number] : 1960 62 From: Gian Peterson MD PCP: Dr. Breanne Whittington MD Status:REG S DC Location: [place] [address] History and Physical Date of Admission: 01/16/23 Visit Reasons: S/R SCREENING SCOPE Chief Complaint: hx colon polyps Recreation Engineer Required: No Is patient in pain?: No Allergies atorvastatin [From Lipitor] Adverse Reaction (Verified 01/04/23 09:42) Other Medications aspirin 81 mg tablet,delayed release 81 mg PO DAILY 02/02/17 [History Confirmed 01/04/23] multivitamin 1 ea PO DAILY 02/02/17 [History Confirmed 01/04/23] sildenafil 50 mg tablet (Viagra) 50 mg PO QDAY PRN ERECTILE 04/14/17 [History Confirmed 01/04/23] clonazepam 1 mg disintegrating tablet 1 mg PO DAILY PRN 07/21/21 [History Confirmed 01/04/23] nitroglycerin 0.4 mg sublingual tablet 0.4 mg sublingual Q5-15M PRN Pt instructed NOT to take within 24 hrs of Viagra #25 tabs 01/02/22 [Rx Confirmed 01/04/23] rosuvastatin 40 mg tablet See Rx Instructions .Route .COMPLEX #90 tabs 03/16/22 [Rx Confirmed 01/04/23] levetiracetam 750 mg tablet (Keppra) 750 mg PO BID 01/04/23 [History Confirmed 01/04/23] [facility] Medical History (Updated 01/04/23 @ 09:[address] 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) Hyperlipemia Ischemic cardiomyopathy Nonrheumatic aortic (valve) stenosis Nonrheumatic mitral (valve) prolapse Seizures Surgical History (Updated 01/04/23 @ 09:41 by Sudha Christina) History of colonoscopy History of hemorrhoidectomy Postsurgical percutaneous transluminal coronary angioplasty (PTCA) status Presence of stent in coronary artery (01/15/13) Status post gamma knife treatment Family History Mother Macular degenerationBrother Myocardial infarction CAD (coronary artery disease) Social History Smoking Status: Never smoker second hand exposure: No alcohol intake: never substance use type: does not use caffeine: No what type of physical activity do you participate in: none seatbelt use: always HPI HPI HPI: 62-year-old gentleman is referred by Dr. Breanne Whittington for surgical consultation regarding his surveillance colonoscopy and a written compromise surgical consultand recommendations will return to him. On February 12, 2017 I assisted the patient with a combined colonoscopy and surgical hemorrhoidectomy. A saline lift and snare polypectomy was performed for cecal polyp's as well as the hemorrhoidectomy at that time. Pathology demonstrated fragments of a tubular adenoma of the cecum. Routine hemorrhoids identified. He has a meningioma of the brain. He has been treated with gamma knife. It is still present. He has right foot pain problems. He had difficulties walking after the treatment. He was briefly treated with chemotherapy as well. He denies abdominal pain bright red blood per rectum or melena. Since his initial seizure since he is on medication he has not had further seizure events. ROS General General: No weight change, appetite, fatigue, colon cancer, breast cancer or weakness HEENT HEENT: No difficulty swallowing, eye injury, eye surgery, swollen glands or hoarseness Endo Endocrine: No thyroid disease, diabetes mellitus, thyroid cancer, Hair loss, heat intolerance or cold intolerance Musc Musculoskeletal: No back problems, arthritis, rheumatoid arthritis, gout or joint pain Cardio Cardiovascular: Yes heart disease, heart attack and heart stent; No murmur, pacemaker, atrial fibrillation, high blood pressure, palpitations, shortness of breat with exertion or chest pain Psych Psychiatric: No depression, anxiety or hearing voices Resp Respiratory: No shortness of breath, Yes sleep apnea, No cough, No COPD, No asthma, No emphysema and No wheezing Gastro Gastrointestinal: No abdominal pain, No nausea or vomiting, No diarrhea, No constipation, No blood in stool, No acid reflux, Yes hemorrhoids, No ulcers, No gallbladder problem and No black,tarry stools Faizan Hematologic: Yes blood thinners, No blood disorders, No bleeding, No anemia and No blood clots Neuro Neurologic: No weakness Exam Const General: cooperative, healthy appearing, comfortable and no acute distress [facility] Head: normal to inspection Eyes General: appearance normal, both eyes and all related structures Neck Neck: normal visual inspection Chest Chest palpation & inspection: normal inspection of the chest Resp Effort & Inspection: normal respiratory effort Auscultation: clear to auscultation bilaterally Cardio Rate: regular rate Rhythm: regular rhythm GI Inspection: normal to inspection Palpation: soft and no hepatosplenomegaly Other: 2 small subcutaneous nodules both bilateral subcostal. Skin General: no rashes or lesions noted Neuro General: patient alert, patient awake and patient oriented x3 Extrem General: no calf tenderness Psych Appearance: grossly normal Assessment and Plan Assessment and Plan (1) Personal history of colonic polyps: Status: Acute Plan: 62-year-old gentleman currently undergoing immunotherapy who has a personal history of colon polyps of the tubular adenoma of the cecum. Previous colonoscopy February 12, 2017. I recommended the patient a colonoscopy with possible biopsy or polypectomy as indicated. Because of his previous known history of meningioma and seizure activity we will use monitored anesthesia care. He may continue his medications. He has 2 small centimeter diameter subcutaneous masses bilateral subcostal area consistent with lipomas. Intermittently they are mildly symptomatic but he states he has had them for years. Surgical excision in the office can be at hisdiscretion. He has had an opportunity to ask and have questions answered. We will schedule proceed with his colonoscopy Copy: Dr. Breanne Peterson M.D., F.A.C.S. (2) Lipoma: I have examined the patient and the H&P has been reviewed. There are no clinicalchanges since date of exam. Gian Peterson M.D., F.A.C.S. 01/16/23 0927 <Electronically signed by Gian Peterson MD> Cosigner Signature (if applicable): CC: Dr. Gian Peterson MD; Dr. Breanne Whittington MD~ Signed [facility] Work Phone: [phone]) [phone] History of Present illness Narrative* Augustin Carrillo - 01/02/2023 10:50 PM EDT Images from the original note were not included. FOLLOW UP PODIATRIC OFFICE VISIT Chief Complaint: This 62 year old who presents for follow up:right foot pain Patient presents to clinic for follow-up right foot pain. He complains of pain to the ball of rightfoot. In addition to pain, he complains of constant burning. He has prior emg which was unremarkable. He has mri of ankle that was absent for any soft-tissue mass in tarsal tunnel. He states he has continued burning in his foot, worse when active. PAIN EVALUATION 12/26/2022 0709 Pain Level: 6 Pain Location: Foot-Right Description: Burning;Contraction;Dull;Numbness;Tingling Duration Amount of Time: 4 Duration Units: Hours Frequency: Intermittent Intervention/Comfort measure: Medication;Reposition;Positioning Comments: Ibuprophen lessesns severity Hemoglobin A1C Date Value Ref Range Status 04/21/2022 4.8 4.3 - 5.6 % Final Comment: [place] [employer] guidelines indicate that patients with HgbA1c in the range 5.7-6.4% are at increased risk for development of diabetes, and intervention by lifestyle modification may be beneficial. HgbA1c greater or equal to 6.5% is considered diagnostic of diabetes. 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 dexAMETHasone (DECADRON) 2 mg tablet 2 mg the day prior to the flight, the day of the flight and the day after the flight. CPAP/BIPAP/OTHER PLEASE PROVIDE Han[employer] ArchivesWEAR FFM (MEDIUM) Lifetime supplies for PAP tx, including patient preferred mask, head gear, heated tubing, humidity,filters, chin strap. Dx: Obstructive Sleep Apnea G47.33 DME: [facility] Fax download reports to [phone]. CPAP/BIPAP/OTHER Continue Auto CPAP with current settings of 5-20 cm H2O. Lifetime supplies for Auto CPAP, including patient preferred mask, head gear, heated tubing, humidity, filters, chin strap. Dx: Obstructive Sleep Apnea G47.33 DME: [facility] levETIRAcetam (KEPPRA) 500 mg tablet TAKE ONE AND ONE-HALF TABLETS TWICE A DAY sildenafil (VIAGRA) 100 mg tablet Take 1 pill 1 hour prior to sexual activity on empty stomach CPAP Initiate Auto PAP @ 5-20 cm of water with humidification. Mask (per patient preference) optional chin strap (if indicated) , filters, tubing, humidifier and lifetime supplies. rosuvastatin (CRESTOR) 40 mg tablet Take 40 mg by mouth. Multivitamin capsule Take 1 capsule by mouth once daily. aspirin(ADULT LOW DOSE ASPIRIN 81 MG TAB, DELAYED RELEASE) Take one(1) tablet daily. No current facility-administered medications for this visit. ALLERGIES Allergen Reactions Atorvastatin Myalgia, Other: See Comments PAST SURGICAL HISTORY Procedure Laterality Date COLONOSCOPY FLX DX W/COLLJ SPEC WHEN PFRMD 10/29/2009 Colonoscopy HEMORRHOID;BAND LIGAT, SNGL/MUL 12/2016 PAST SURGICAL HISTORY OF Left 04/2017 left knee arthroscopy - meniscus PAST SURGICAL HISTORY OF 01/2013 PTCA x 1 - LAD Physical Exam: OBJECTIVE: Constitutional: Pt is a well developed 62 year old male who is alert, oriented, cooperative and in no apparent distress. Eyes: Following during examination. No redness or drainage. Respiratory: RR normal and nonlabored. Even breathing. No evidence of distress. Psychology: Patient is engaged during conversation. Normal affect and mood. Does not appear depressed or anxious. NVSI unchanged from previous visit. Dermatological: Nails 1-5 b/l are normal. Webspaces clean and dry 1-4 b/l. Skin appears well hydrated and supple. good color, texture, turgor. No open lesions present. No callosities present. Musculoskeletal/Orthopaedic: Patient has pain to palpation of right 2nd and right 3rd interspace + shaun sign of right 3rd interspace ASSESSMENT: Foot pain, right (primary encounter diagnosis) Numbness Neuroma PLAN: Discussed pain in right foot. 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 Discussed options not limited to continued use of inserts, attempting diagnostic vs steroid injection, RFA vs surgical removal One other option is to further work-this up by way of ultrasound. I am going to obtain ultrasound and will then call patient with results. Augustin Carrillo DPM * Tena Andrews RN - 01/02/2023 1:00 PM EDT AMB ROOMING INTAKE FLOWSHEET DATA Pain Pain Level: 6 Pain Location: Foot-Right Description: Burning, Contraction, Dull, Numbness, Tingling Duration Amount of Time: 4 Duration Units: Hours Frequency: Intermittent Intervention/Comfort measure: Medication, Reposition, Positioning Comments: Ibuprophen lessesns severity Patient presents with: Right Foot - Established Patient, Pain Patient c/o R foot pain, numbness. Last seen for this problem one year ago. Using inserts. Has tried gabapentin but didn't help with numbness/pain. Elevation helps. Pain is intermittent and occurs mainly in the afternoons and evenings. Ibuprofen helps as well as clonazepam. documented in this encounterMer[facility]22-2023 Miscellaneous Notes* Telephone Encounter - Colton Chavez - 01/02/2023 3:51 PM EDT PT scheduled for MSK US on 01/19/23 at 12:45 pm at [facility]. * Telephone Encounter - Katey Gonzales PCNA - 01/02/2023 3:31 PM EDT Visit Type: ANY MSK Visit Length: 45, 50 OR 60 MINUTES Order Name/Protocol: US FOOT RT; MOORE'S NEUROMA-EVAL 2ND+3RD IMS Preferred Provider: N/A Comment: Please ask if the patient has ever had any prior surgery to their RT foot. If so, upgrade the visit type to an MSK1 and notate the surgical hx in the Appointment Note. Location: Depending on the surgical hx, this patient can have this exam performed at any of our three locations. Slot held: N/A documented in this encounterMercy Health [facility]. [facility]08-15-2023 Nurse Note* Milady Velasco LPN - 12/26/2022 3:17 PM EDT REVIEW OF SYSTEMS: General: The patient denies fatigue, denies weight loss, denies weight gain, denies feeling hot, and denies feelings of cold. Eyes: The patient denies glaucoma, denies eye injury/surgery, wears glasses or contacts. Ear/Nose/Throat: The patient denies allergies, denies hayfever, denies ear infections, and denies bloody noses. Cardiovascular: The patient denies chest pain, NOTES heart disease, denies high blood pressure,NOTES cardiac stent, NOTES prior heart attack, denies irregular heart beat, denies high cholesterol, denies poor circulation, denies heart failure, other cardiac issues, denies claudication, denies cold feet, denies peripheral arterial stent. Respiratory: The patient denies tuberculosis, denies pneumonia, denies frequent cough, denies pulmonary embolism, denies shortness of breath, and denies coughing up blood. Gastrointestinal: The patient denies difficulty swallowing, denies acid reflux, denies ulcers, denies vomiting, denies jaundice/hepatitis, denies gallbladder problems, denies black or tarry stools, NOTES hemorrhoids, denies bleeding from rectum, denies diverticulitis, denies constipation, denies diarrhea, denies loss of stool control, and denies hernias. Kidney/Bladder: The patient NOTES kidney stones, NOTES urine infections, and denies bloody urine. Skin: The patient denies a history of skin cancer, denies bleeding/changing moles, and denies a history of skin rash. Neurologic: The patient NOTES a history of epilepsy/convulsions, denies headaches, denies head/spinal injuries, and denies stroke/TIA. Psychiatric: The patient denies psychiatric medications, denies depression, and denies voices, denies substance abuse. Endocrine: The patient denies thyroid disorders, denies diabetes, and denies hormonal problems. Hematologic: The patient denies a history of bruising, denies bleeding, and denies anemia, denies blood clots. Infections: The patient denies a history of measles and mumps, denies rheumatic fever, and denies sexually transmitted diseases. Musculoskeletal: The patient denies back pain/injury, denies back problems, denies sciatica, deniesknee/foot trouble, denies arthritis, or denies gout. When was patient's last Mammogram screening? N/A Last Colonoscopy: 2009 Milady Velasco LPN documented in this encounterMer[facility]. [facility]08-15-2023 History of Present illness Narrative* Michelle Ruiz PA-C - 12/26/2022 2:07 PM EDT Screen HISTORY AND PHYSICAL Watson Rodriguez 1960 REFERRING PHYSICIAN: Breanne Whittington MD CHIEF COMPLAINT: Consult (Family history of colon cancer) HPI: The patient is a 62 year old male referred for endoscopy. Watson notes a personal history of colon polyps as well as family history of colon cancer, and is due for surveillance colonoscopy. Patient denies any change in bowel habits, weight changes, blood in stools, black tarry stools or abdominal pain. The patient notes no upper GI complaints. Watson has undergone prior endoscopy. Last colonoscopy [address] Gian Peterson at [facility], had hemorrhoidectomy at same setting. Patient's medical history is significant for benign brain tumor, seizures, Hx AK. Patient denies chest pain, shortness of breath or recent hospitalizations. 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 dexAMETHasone (DECADRON) 2 mg tablet 2 mg the day prior to the flight, the day of the flight and the day after the flight. CPAP/BIPAP/OTHER PLEASE PROVIDE DREAMWEAR FFM (MEDIUM) Lifetime supplies for PAP tx, including patient preferred mask, head gear, heated tubing, humidity,filters, chin strap. Dx: Obstructive Sleep Apnea G47.33 DME: [facility] Fax download reports to [phone]. CPAP/BIPAP/OTHER Continue Auto CPAP with current settings of 5-20 cm H2O. Lifetime supplies for Auto CPAP, including patient preferred mask, head gear, heated tubing, humidity, filters, chin strap. Dx: Obstructive Sleep Apnea G47.33 DME: [facility] levETIRAcetam (KEPPRA) 500 mg tablet TAKE ONE AND ONE-HALF TABLETS TWICE A DAY sildenafil (VIAGRA) 100 mg tablet Take 1 pill 1 hour prior to sexual activity on empty stomach CPAP Initiate Auto PAP @ 5-20 cm of water with humidification. Mask (per patient preference) optional chin strap (if indicated) , filters, tubing, humidifier and lifetime supplies. rosuvastatin (CRESTOR) 40 mg tablet Take 40 mg by mouth. Multivitamin capsule Take 1 capsule by mouth once daily. aspirin(ADULT LOW DOSE ASPIRIN 81 MG TAB, DELAYED RELEASE) Take one(1) tablet daily. No current facility-administered medications for this visit. ALLERGIES: Atorvastatin PERSONAL HISTORY: Social History Tobacco Use Smoking status: Never Smokeless tobacco: Never Vaping Use Vaping Use: Never used Substance Use Topics Alcohol use: No Drug use: No FAMILY HISTORY: FAMILY HISTORY Problem Relation Age of Onset Colon Cancer Mother ascending large intestine removed 2009 at 80 years old Colon Cancer Maternal Grandmother portion lower colon removed 60 years old, colostomy REVIEW OF SYMPTOMS: The review of systems data was entered by the nurse and reviewed by hi Nursing Notes: Milady Velasco LPN 12/26/2022 4:41 PM Signed REVIEW OF SYSTEMS: General: The patient denies fatigue, denies weight loss, denies weight gain, denies feeling hot, and denies feelings of cold. Eyes: The patient denies glaucoma, denies eye injury/surgery, wears glasses or contacts. Ear/Nose/Throat: The patient denies allergies, denies hayfever, denies ear infections, and denies bloody noses. Cardiovascular: The patient denies chest pain, NOTES heart disease, denies high blood pressure,NOTES cardiac stent, NOTES prior heart attack, denies irregular heart beat, denies high cholesterol, denies poor circulation, denies heart failure, other cardiac issues, denies claudication, denies cold feet, denies peripheral arterial stent. Respiratory: The patient denies tuberculosis, denies pneumonia, denies frequent cough, denies pulmonary embolism, denies shortness of breath, and denies coughing up blood. Gastrointestinal: The patient denies difficulty swallowing, denies acid reflux, denies ulcers, denies vomiting, denies jaundice/hepatitis, denies gallbladder problems, denies black or tarry stools, NOTES hemorrhoids, denies bleeding from rectum, denies diverticulitis, denies constipation, denies diarrhea, denies loss of stool control, and denies hernias. Kidney/Bladder: The patient NOTES kidney stones, NOTES urine infections, and denies bloody urine. Skin: The patient denies a history of skin cancer, denies bleeding/changing moles, and denies a history of skin rash. Neurologic: The patient NOTES a history of epilepsy/convulsions, denies headaches, denies head/spinal injuries, and denies stroke/TIA. Psychiatric: The patient denies psychiatric medications, denies depression, and denies voices, denies substance abuse. Endocrine: The patient denies thyroid disorders, denies diabetes, and denies hormonal problems. Hematologic: The patient denies a history of bruising, denies bleeding, and denies anemia, denies blood clots. Infections: The patient denies a history of measles and mumps, denies rheumatic fever, and denies sexually transmitted diseases. Musculoskeletal: The patient denies back pain/injury, denies back problems, denies sciatica, deniesknee/foot trouble, denies arthritis, or denies gout. When was patient's last Mammogram screening? N/A Last Colonoscopy: 2009 Milady Velasco LPN I have confirmed and edited as necessary, the PFSH and ROS obtained by others. Michelle Ruiz PA-C PHYSICAL EXAMINATION: General: The patient is 62 year old male, well nourished, well hydrated in no acute distress. The patient is oriented to time, place, and person. VITALS: Blood pressure 120/74, pulse 69, temperature 36.7 C (98.1 F), height 180.3 cm (5' 11), weight 85.2 kg (187 lb 12.8 oz), SpO2 97 %. Body mass index is 26.19 kg/m . HEENT: Normal cephalic, ataumatic, pupils are equally round, sclera are anicteric, mucous membranesare moist, oropharynx is clear. Neck has no masses, asymmetry or lymphadenopathy. Respiratory: Clear to auscultation and percussion. Normal respiratory excursion and pattern. Cardiac: Examination is regular rate and rhythm. Normal S1/S2 Abdominal exam: Soft, nontender, with no palpable masses. No hepatosplenomegaly. No palpable hernias. Extremities: no clubbing, cyanosis or edema. No adenopathy. LABORATORY VALUES: As Noted RADIOLOGIC STUDIES: As Noted Assessment IMPRESSION: personal history of colon polyps, encounter for surveillance colonoscopy. Family history of colon cancer PLAN: I have reviewed my findings with the surgeon. Will plan for upper endoscopy. We discussed therisks and benefits of the planned endoscopy. I have informed the patient that complications can occur including failure to complete the endoscopy and perforation. The patient had the opportunity to ask questions concerning the planned endoscopy. My staff has also explained the procedure to the patient in understandable terms and has given the patient printed material concerning the procedure. Thepatient freely consents to surgery. I plan to use Golytely bowel preparation The patient has medical comorbidities for which we will plan for the procedure to be performed under [facility]. PACC review-Seizures, cardiac history Diagnoses: (Z12.11) Encounter for screening for malignant neoplasm of colon (primary encounter diagnosis) (Z80.0) Family history of colon cancer (Z86.010) History of colonic polyps Consultation requested by Dr. Whittington for an opinion regarding surveillance colonoscopy. My final recommendations will be communicated back to the requesting physician by way of shared Medical record orletter to requesting physician via US mail. Michelle Ruiz PA-C documented in this encounterMercy Health St. [facility]07-20-2023 Miscellaneous Notes* Telephone Encounter - Kyle Brewer LPN - 11/30/2022 10:35 AM EDT Pt requested to switch CPAP equipment co. from [facility] to [facility]. Current dme can no longer get pt. current mask. Faxed order to: DME name: [facility] fax # [phone] DME All other paperwork needed forwarded from [facility] To [facility]. Faxed info in patient's chart. documented in this encounterMercy [facility] St. [facility]07-20-2023 History of Present illness Narrative* Miguelangel Spence APRN.MONO - 11/30/2022 8:39 AM EDT documented in this encounterMercy Health St. [facility]07-12-2023 Miscellaneous Notes* Telephone Encounter - Leonor Zavala MA - 11/22/2022 10:34 AM EDT Images from the original note were not included. documented in this encounterMercy Health St. [facility]07-11-2023 Miscellaneous Notes* Telephone Encounter - Kyle Brewer LPN - 11/21/2022 3:50 PM EDT Faxed order, office notes to: DME name: [facility] fax # [phone] DME Faxed info in patient's chart. documented in this encounterMercy Health St. [facility]07-10-2023 Instructions* Patient Instructions* Miguelangel Spence APRN.MONO - 11/20/2022 5:28 PM EDT Images from the original note were not included. PLAN: - Continue Auto CPAP at current settings of 5-20 cmH2O. - Your sleep apnea is still in the mild range, which may account for increased nocturia - I suspect this is due to a high mask leak, which was not present before - It is possible that your supplies need to be replaced (headgear and tubing) - If continuing current mask: - You can check your tubing for holes or purchase new tubing for your device (out of pocket or through [facility]) - I recommend replacing headgear, as this is likely stretched/worn out - You may also try the new mask provided today (F&P Viri full face mask, size small/med) - Let me know how things are going as your proceed with new mask/supplies - Remember to clean your mask and equipment regularly, as directed. - Avoid use of ozone manager floor, SoClean devices, or UV cleaning devices - Avoid using alcohol or alcohol-containing products on your mask, as this may compromise the integrity of the mask materials and contribute to leak issues - Use only baby shampoo and water, mild dish soap and water, or CPAP-specific wipes to clean your supplies. - You should be eligible for new supplies approximately every 3-6 months, depending on your insurance coverage. Contact your Durable Medical Equipment (DME) company for new supplies as needed. - You may continue to purchase supplies out of pocket, or request them through your DME company - Order will be sent to [employer] for supplies: Julaina Reilly - Follow up with me in 3 months. PAP Supply Guidelines Below are the guidelines for reordering your supplies. You will be responsible for your deductible,co-payments, and out of pocket expenses. Item Medicare & Commercial Insurance Medicaid & HCAP Nasal Mask (no headgear) 1 every 3 months 1 per year Nasal Mask Cushion 1 every month 2 per year Full Face Mask (no headgear) 1 every 3 months 1 per year Full Face Mask Cushion 1 every month *Self-Pay Nasal Pillows 2 every month 2 per year Headgear 1 every 6 months 1 per year Chin Strap 1 every 6 months 2 per year Tubing 1 every 3 months 1 per year Filters: Reusable 1 every 6 months 4 per year Filters: Disposable 2 every month 1 per month Humidifier Chamber(disposable) 1 every 6 months *Self-Pay Contacting the Sleep Disorders Center: - Appointments can be scheduled through the central scheduling system for the [facility] at [phone]. - Call the Sleep Disorders Center at [phone] for questions. - May use Message My Doc through [email or web address] for questions. - [facility] website: [email or web address] Your most recent body mass index (BMI) that we have on record is 26.83 kg/m2. Obstructive sleep apnea (MELL) worsens with an increase in weight; reduction in weight may improve or resolve your MELL. Ifyou are not already seeking treatment, there are resources available at the [facility] such as a nutrition consultation or referral to weight management programs at our [facility]. Please let us know if we can assist with a referral. documented in this encounterMercy Health St. [facility]07-10-2023 History of Present illness Narrative* Miguelangel Spence APRN.MONO - 11/20/2022 3:03 PM EDT Images from the original note were not included. [facility] Follow up/ Established patient visit Date of last visit : 11/07/2021 Per last visit: IMPRESSION: Diagnosis: Mell (obstructive sleep apnea) (primary encounter diagnosis) Sleep Studies (Reviewed Prior and Current): Home Sleep Test (HST) 01/21/21 revealed at least moderate MELL (Total AHI of 19.2, Off-Supine AHI 12.4, Supine AHI 27.4) that was associated with a minimum oxygen saturation of 87%. The patient spent 26.0 minutes at oxygen saturation measured less than 90% (4.9% of recording time) and 3.6 minutes at oxygen saturation measured at or less than 88% (0.7% of recording time). Overview: Mr. 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 Since GKRS he had side effects from steroid including insomnia. Steroid was discontinued in early October 2020. Today he is following up for MELL (continues PAP therapy). - Doing well with PAP therapy. - Denies mask or pressure intolerance. - Compliant and benefiting from PAP treatment. Reviewed Objective PAP Compliance Report: 09/27/21-10/26/21 Usage days 30/30 days (100%) >= 4 hours - 30 days (100%) Average # hours nights used - 7 hours 38 mintues Pressure 90th % - 9.0 cmH20 Average time in large leak per day - 7.7 L/min Residual AHI - 1.5 Plan: - Continue Auto CPAP at 5-20 cmH2O for MELL. - Remember to clean your mask and equipment regularly, as directed. - You should be eligible for new supplies approximately every 3-6 months, depending on your insurance coverage. Contact your [employer] ([employer]) company for new supplies as needed. - Follow up in 12 months with Danielle Irwin CNP or any Sleep ANTHONY's. If you have questions, feel free to send me a [employer] message. I spent a total of 30 minutes as this was an established patient to me on the date of the service which included preparing to see the patient, [id number] patient care, completing clinical documentation, counseling and educating the patient/family/caregiver and ordering medications, tests, or procedures. Danielle Irwin APRN.MONO Here for follow up for MELL on CPAP Interval history : Doing well with CPAP. Has had more nocturia in recent months, though the past few weeks have been good. Possibly attributable to increased stress and restless sleep r/t the of his mother. Mask is leaking when lying on back. SLEEP APNEA A Home Sleep Test (HST) performed on 01/21/2021 revealed at least moderate MELL (AHI of 19.2) that was associated with a minimum oxygen saturation of 87%; (3% hypopnea scoring; BMI 30.9). Sleep apnea type : MELL, Most Recent Apnea-Hypopnea Index (AHI): 19.2 Treatment : PAP therapy DME: [facility] -- he has been purchasing supplies OOP d/t [employer] not carrying[employer]ream[employer] FFM and having high-deductible insurance plan PAP History: Uses AutoPAP for 6-7 hours per night, 7 nights per week. Current PAP settin-20 cm H2O. Difficulties with AutoPAP: None Reviewed objective PAP compliance data: Yes Per download from 10/21/2022 - 11/19/2022, patient uses PAP therapy an average of 6.75 hours, and PAP use is >/= 4 hours on 97% of nights; Current setting of 5-20 cmH2O has reduced MELL to mild range (residual AHI 6.8); high mask leak 57.5 L/min. Mask type: full face mask - Dreamwear Mask issues: air leak Uses chin strap: No Uses humidity: Yes There is a perceived benefit by the patient PATIENT-ENTERED QUESTIONNAIRE SLEEP SCORES Sleep Questions 11/16/2022 Reason for visit: Sleep apnea, Difficulty falling or staying asleep or poor sleep quality Average hours slept in 24 hours: 7 Average hours of CPAP per night: 6.75 Percent of nights CPAP used at least 4 hours: 100 Accidents or near accidents due to drowsy drivin [place] Sleepiness Scale 04/25/2021 11/03/2021 11/16/2022 Score 7 (No daytime sleepiness) 7 (No daytime sleepiness) 4 (No daytime sleepiness) PROMIS CAT Sleep Disturbance 09/07/2021 11/03/2021 11/16/2022 PROMIS Sleep Disturbance T-Score 41 (within normal limits) 44 (within normal limits) 49 (within normal limits) PROMIS Sleep Disturbance Percentile - 73 % 54 % Insomnia Severity Index 07/16/2020 Score 5 Restless Leg Syndrome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 be unlikely for the stenosis of the surgical site the sinus to be symptomatic, and that the edema, is probably not related to the venous stenoses as the edema will be more prominent by now and it would show progressive venous congestion, and typically this will show also anteriorly. In summary, Dr. Colton Mason felt that the either occluded or stenosed SSS, is not symptomatic atthis time, and no need for any therapeutic or other diagnostic interventions. I also asked for his input regarding that the patient is on dual antiplatelets, that is, aspirin and Plavix, and that he has been, on both medications for 2 years per his own decision for the past 2 years, even though his scada technician told him, that he stop Plavix 2 years ago, and whether he ought to take both antiplatelets, because of his superior sagittal sinus occlusion or stenosis. Dr. Pinedo felt, that the patient, requires no therapeutic interventions, neither other diagnostic interventions, and that he would not recommend him to be on 2 antiplatelets, or not even on 1, if he did not need to be on antiplatelets for other reasons. However, the decision for the patient to continue on both antiplatelets, will be a decision to be made by his scada technician. Acknowledging, that thepatient was told by his scada technician to stop dual antiplatelet therapy 3 years ago and to continue only on aspirin. I called Mr. Rodriguez and reviewed the above with him. He tells me, that he saw his scada technician andthat he was told, that he does not need to be on dual antiplatelets and that he could go of his Plavix. He says that his scada technician is going to do a stress test in the future. 11: RIGHT LOWER EXTREMITY PARESTHESIAS. DISCUSSION He says that he has this almost persistent, sensation of tingling and needles sensation in his right foot, which it gets more pronounced when he stops on his foot. It is rather constant and is not paroxsymal in nature. He is wondering whether there is a pathology in his foot/leg. I told him that told him that this symptom is likely from the tumor, and it would be unlikely that he has a lumbosacral pathology to a peripheral process to explain this. He had a lumbar MRI in May 2020, and to my eye I see no significant pathology, and the report also shows no significant neuro foramina narrowing orspinal canal stenosis, other than some mild narrowing of the neural foramina form spurring at L4-5. THIS HAS IMPROVED. 03/20/22. This is still occurring several times a day, not getting better with MAMI. 11/06/22 Was on gabapentin from July 2 August 27, had no benefit, btu had side effects. -Cold hands -Blurry vision After stopping this drug, 4 days after his vusion improved and returned to baseline. 12: BURNING SENSATION OF RIGHT LOWER EXTREMITY. HOWEVER HE SAYS THAT SINCE HE STARTED LACOSAMIDE, HE HAS HAD A BURNING SENSATION THAT COMES IN PAROXYSMAL AND STEREOTYPICAL FASHION, AND IS QUITE BOTHERSOME. The event can last 1-2 minutes, and can dissipate if he takes clonazepam, but it can take up to 30 minutes to go away. The patient provided to em with a log of symptom binh detailed fashion which I reviewed, and has been scanned into his chart. INTERIM EVENTS 02/01/22 Has yanira seen by podiatry Dr. Augustin Carrillo -Had EMG no abnormality -01/26/22 MRI Rt ankle also normal. -Dr. Neal neurology, has seen patient last year, recommended to do a nerve biopsy to exclude small fiver neuropathy. Mr. Wilder declined this evaluation. INTERIM EVENTS 04/24/22 Last event Apr 21, 2022 Improved in frequency, perhaps severity by 1/3 on bevacizumab (mami) 08/02/2022 Mr. Rodriguez is still having paresthesias of his right lower extremity, mainly distally. He is wondering whether Vimpat may be playing a role. I told him that the chances for this medication to be the culprit of this symptom is low, and is likely form the tumor. He wishes to see whether the dose of Vimpat can be lowered some, andsee how he does. 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 PLAN: My own empiric practice. In order to decrease the possibility of steroid edema for flying, empirically recommended for the patient to take dexamethasone 2 mg daily, the day prior to the flight, the day of the flight, and theday after the flight. I told him, that he suffered an empiric approach but this is my practice. 13- DIAGNOSED WITH COVID-19 ON Sunday. Achy of muscle, and sore throat, last week and tested POS for COVID. He is getting better, no developing new symptoms. He contacted his PCP and recommended antivirals, but says that Dr. Acuna noted that there are interactions with other medications. The patient opted not to go on any antivirals. I advised him to keep Dr. Acuna appraised of his symptoms. HE HAS BEEN OFF DEXAMETHASONE FOR A WHILE. 14-PHOTOPHOBIA/PHONOPHOBIA. -Going on since after his stereotactic radiosurgery (Gamma knife) Discussion: May be a migraine like phenomenon - unlikely to be seizures. 15-Neck pain: 06/08/2022 Seen by PCP, had USG/C-spine x-rays, largely unremarkable. 16. Right mastoid area, pain upon palpation. Etiology unclear, no reported abnormality in this area. The pain is induced if he turns his head to the left. His PCP, did c-spine X- rays and also an USG with no definite pathology. I discussed whether a C-spine MRI should be done,a dn he indicated that he wants to see how he does. PCP to consider referral to ENT for possible mastoiditis. 17. Vision close up is lower, since on gabapentin started. Wishes to make no adjustments, and see hope he does. I advised to see eye doctor, acute specialist is OK. 18- H/O spina bifida occulta. He was diagnosed with this entity as a child. This past medical history was disclosed by Mr. Rodriguez until today. I am not sure whether this has any role in his Rt LE paresthesias., I discussed the performance of a lumbar spine MRI, but Mr. Rodriguez wishes to just watchfor now. This imaged can be considered in the future of course. She has been evaluated from he peripheral perspective already (see No 19) 19-Early neuromuscular evaluations with neuromuscular neurologist Dr. Lakisha Junior in 07/2020 who recognized that his symptoms were not peripheral after work up that included an EMG/NCS, but rather central at the brain level, which triggered the performance of brain images with the discovery of his meningioma. Therapy Status Data Form Past Medical History: PAST MEDICAL HISTORY Diagnosis Date Acute myocardial infarction of lateral wall (HCC) 2012 s/p LAD stent Benign neoplasm of colon Benign neoplasm of meninges (HCC) 08/02/2020 Hyperlipidemia Seizure (HCC) focal motor Past Surgical History: PAST SURGICAL HISTORY Procedure Laterality Date COLONOSCOPY FLX DX W/COLLJ SPEC WHEN PFRMD 10/29/2009 Colonoscopy HEMORRHOID;BAND LIGAT, SNGL/MUL 12/2016 PAST SURGICAL HISTORY OF Left 04/2017 left knee arthroscopy - meniscus PAST SURGICAL HISTORY OF 01/2013 PTCA x 1 - LAD Family History: FAMILY HISTORY Problem Relation Age of Onset Colon Cancer Mother ascending large intestine removed 2008 at 80 years old Colon Cancer Maternal Grandmother portion lower colon removed 60 years old, colostomy Social History Tobacco Use Smoking status: Never Smokeless tobacco: Never Vaping Use Vaping Use: Never used Substance Use Topics Alcohol use: No Drug use: No Allergies: Atorvastatin Current Outpatient Medications on File Prior to Visit Medication Sig levETIRAcetam (KEPPRA) 500 mg tablet Take 2 tablets by mouth twice daily. midazolam (NAYZILAM) 5 mg/spray (0.1 mL) nasal spray Use 1 spray in one nostril as needed for seizures. May repeat dose in alternate nostril after 10 minutes based on response and tolerability. Only take for seizures lasting more than 3 minutes or more than 3 seizures in an hour clonazePAM orally disintegrating (KLONOPIN WAFER) 1 mg disintegrating tablet Dissolve 1 tablet under the tongue three times daily as needed (seizures) for up to 30 days. lacosamide (VIMPAT) 100 mg tab Take 200 Mg BID sildenafil (VIAGRA) 100 mg tablet Take 1 pill 1 hour prior to sexual activity on empty stomach dexAMETHasone (DECADRON) 2 mg tablet 2 mg the day prior to the flight, the day of the flight and the day after the flight. CPAP Initiate Auto PAP @ 5-20 cm of water with humidification. Mask (per patient preference) optional chin strap (if indicated) , filters, tubing, humidifier and lifetime supplies. rosuvastatin (CRESTOR) 40 mg tablet Take 40 mg by mouth. Multivitamin capsule Take 1 capsule by mouth once daily. aspirin(ADULT LOW DOSE ASPIRIN 81 MG TAB, DELAYED RELEASE) Take one(1) tablet daily. No current facility-administered medications on file prior to visit. Review of systems: SEE ABOVE Constitutional: No recent fever or weight loss. Eyes: No history of glaucoma or cataracts. ENMT: No recent ear infection, nasal congestion, mouth sores or sore throat. See HPI CV: No history of chest pain, palpitations Right leg swelling, SEE HPI Respiratory: No history of SOB, asthma or recent cough. Gastrointestinal: No history of nausea, vomiting, dysphagia or abdominal pain. Genitourinary: No history of hematuria or dysuria. Musculoskeletal: No complaint of arthritis Has Right leg weakness, see HPI. Psychiatric: No history of hallucinations He feels somewhat anxious and also down emotionally as his neurological disability is affecting hisQOL. ROS Neurological: SEE HPI No complaint of headache. Complaint of tinnitus, bilateral . No complaint of decreased hearing. No complaint of diplopia. No complaints of decreased visual acuity. Complaint of RT arm/leg numbness. Problem with RT limb coordination. No complaint of syncope Complaint of seizures, see HPI No loss of consciousness. Objective GENERAL EXAM: General appearance: Well appearing, alert, in no acute distress NEUROLOGICAL EXAM: Higher integrative functions: Oriented to person, place & time. Attention Span and Concentration: Good. Language: Accurate naming of objects. Good comprehension. Fund of Knowledge: Good. 2nd CN: Full visual gonzalez. 3rd,4th,6th CN: Pupils equal, round, react to light, full extraocular movements. 5th CN: No decrease in facial sensation 7th CN: Facial muscles symmetric and strong. 8th CN: Hears finger rub well bilaterally. 9th CN: Gag reflex not tested 10th CN: Spontaneous palate movement, full and symmetric. 11th CN: Full strength in shoulder shrug. 12th CN: Tongue protrusion full and midline. Sensation: No decrease in sensation in upper or lower limbs to touch. Vibratory sensation intact. Musculoskeletal: Gait steady. Romberg negative. Motor: 5/5 RUE/RLE; 5/5 LUE/LLENormal muscle tone without atrophy in all limbs. The patient ahs full power on both upper and particularly lower extremities. His right LE has powerof 5/5. However. Coordination: Rapid alternating movements LUE; RUE intact Reflexes: Hyper areflexia in right lower extremity, patellar/ankle, 3+, some ankle clonus. Plantar response left down going, right up going. Patient has a degree of sensory ataxia in his left LE. Karnofsky performance status: 90 - Able to carry on normal activity, minor signs or symptoms of disease. ECOG performance status: 1 - Restricted in physically strenuous activity but ambulatory and able tocarry out work of a light or sedentary nature, e.g., light house work or office work. PHQ 2 and 9 Total Scores 02/22/2022 PHQ-2 Score 0 PHQ-9 Score 0 Labs: CBC Latest Ref Rng & Units 03/20/2022 04/10/2022 05/01/2022 WBC 3.70 - 11.00 k/uL 5.07 4.33 4.80 RBC 4.20 - 6.00 m/uL 4.60 4.59 4.58 HEMOGLOBIN 13.0 - 17.0 g/dL 14.4 14.6 14.4 HEMATOCRIT 39.0 - 51.0 % 41.1 40.4 39.2 MCV 80.0 - 100.0 fL 89.3 88.0 85.6 MCH 26.0 - 34.0 pg 31.3 31.8 31.4 MCHC 30.5 - 36.0 g/dL 35.0 36.1(H) 36.7(H) RDW-CV 11.5 - 15.0 % 11.9 11.9 11.8 PLATELETS 150 - 400 k/uL 185 169 177 MPV 9.0 - 12.7 fL 8.3(L) 8.6(L) 8.6(L) BASO% % 0.4 0.5 0.2 ABS NEUT (ANC) 1.45 - 7.50 k/uL 3.24 2.76 3.40 ABS LYMPH 1.00 - 4.00 k/uL 1.20 0.98(L) 0.90(L) ABS MONO <0.87 k/uL 0.53 0.52 0.44 ABS EOSIN <0.46 k/uL 0.07 0.04 0.04 ABS BASO <0.11 k/uL <0.03 <0.03 <0.03 NRBC /100 WBC 0.0 0.0 0.0 DIFF TYPE - - - - CMP Latest Ref Rng & Units 04/10/2022 04/21/2022 05/01/2022 SODIUM 136 - 144 mmol/L 133(L) - 133(L) POTASSIUM 3.7 - 5.1 mmol/L 4.4 - 4.3 CHLORIDE 97 - 105 mmol/L 99 - 101 CO2 22 - 30 mmol/L 27 - 27 GLUCOSE 74 - 99 mg/dL 88 - 99 BUN 9 - 24 mg/dL 12 - 14 CREATININE 0.73 - 1.22 mg/dL 1.02 - 0.94 EGFR >=60 mL/min/1.73m 82 - 91 EGFR-ALL OTHER RACES . - - - EGFR- - - - - PROTEIN, TOTAL 6.3 - 8.0 g/dL 6.5 6.9 6.2(L) ALBUMIN 3.9 - 4.9 g/dL 4.3 - 4.2 CALCIUM, TOTAL 8.5 - 10.2 mg/dL 8.6 - 8.9 BILIRUBIN, TOTAL 0.2 - 1.3 mg/dL 0.4 - 0.5 AST 14 - 40 U/L 19 - 17 ALT 10 - 54 U/L 16 - 12 ALKALINE PHOSPHATASE 38 - 113 U/L 67 - 65 Final Pathology: N/A PATIENT HAS NOT HAD A BIOPSY OF HIS BRAIN TUMOR. Imaging: Results MRI BRAIN WO/W IVCON (Order [id number]) Patient Info Patient Name Sex Watson Rose ([id number]) Male 1960 01/26/2022 12:11 PM - Radiology, Oru In Impression IMPRESSION: Minimal decrease in size of the parafalcine meningioma compared to the prior exam. Paper Goods Machine Operator[facility] Transcribe Date/Time: Jan 26 2022 12:02P Dictated by : FREDI CARPENTER MD This examination was interpreted and the report reviewed and electronically signed by: FREDI CARPENTER MD on Jan 26 2022 12:09PM EST Adjacent T2/FLAIR hyperintense vasogenic edema/posttreatment changes in the left parietal centrum semiovale and lopez radiata are unchanged. Local mass effect is again noted and unchanged. No new intracranial enhancing lesions. Results MRI BRAIN WO/W IVCON (Order [id number]) Patient Info Patient Name Sex Watson Rose ([id number]) Male 1960 In Basket Actions Done Result Mgmt View in In Basket 07/31/2022 4:16 PM - Radiology, Oru In Impression IMPRESSION: Stable posterior frontoparietal parafalcine meningioma with invasion of the superior sagittal sinus. Paper Goods Machine Operator: NICOL Transcribe Date/Time: Jul 31 2022 3:51P Dictated by : REGGIE KIMBLE MD This examination was interpreted and the report reviewed and electronically signed by: REGGIE KIMBLE MD on Jul 31 2022 4:13PM EST Assessment & Plan Mr. Watson Rodriguez is a 61-year-old male investigated for right leg numbness and weakness (couldn'tstand on it) April 2020. Work up for lumbar spine cause non conclusive. 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 His right leg still numb and weak. High step gait to avoid dragging his right lower extremity. He had GK-SRS to the tumor (25Gy/5fx) from 08/16/2020-08/20/2020. Mr. 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 He tolerated his treatments well. No side effects. His overall symptoms improved including his QOL. PLAN: 1-Meningioma: -Plan for brain MR w and w/o Booked for 01/29/23. 2-Return visit: -Booked for 02/07/23.Virtual Visit, to review MRI. -Set up an appointment in around 6 weeks time, virtual visit Ok, to review his anti seizure medication regimen 3-Seizures: Continue Levetiracetam (Keppra) -Patient wishes to drop the dose to 750 mg BID, to see whether some of his symptoms would improve. He is aware that he could have seizures, so he is talking al precautions, including to use his rescue medications. -The next lower dose is 750 mg twice a day. The taper is as follows: Levetiracetam 750 mg in am and 1000 mg at night for one week then 750 mg twice a day and stay on this dose. 4-Levetiracetam levels around 2 weeks after patient has been on Levetiracetam (Keppra) at 750 mg BID. Blood to be drawn in am prior to first dose. 5-Rescue medications for breakthrough seizures using either midazolam nasal spray. Or, clonazepam sublingual Not to use both agents on the same day, can use either one in a 24 hour period. I discussed with the patient the potential benefits and side effects of this medications and he knows when and how to use them. 7-Paresthesias of right leg. This have improved somewhat now that he is off lacosamide But still having right foot toes paresthesias. He is seeing his doctor of radiology to exclude a podiatric issues. 8-Driving a motor vehicle: He is driving a car now. 9-Follow-up with Dr. Sutton and Dr. 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 10-Follow with his primary physician Dr. Whittington. 11-Follow up with scada technician Dr. Claudio Parks for cardiology care. 12-Follow up with Dr. Joe Santos, for nephology care, as patient has one functional kidney. At the end, Mr. Rodriguez and his Damaris, RN, verbalized understanding, and agreement with above recommendations and had no further questions or concerns for the moment. I encourage him to call me at my office if he has any questions about the above plan. I spent a total of 45 minutes which included preparing to see the patient, [id number] patient care, completing clinical documentation, obtaining and/or reviewing separately obtained history, performing a medically appropriate examination, counseling and educating the patient/family/caregiver, ordering medications, tests, or procedures, communicating with other HCPs (not separately reported), independently interpreting results (not separately reported), communicating results to the patient/family/caregiver, and care coordination (not separately reported). Yancy Centeno MD Staff Neuro-Oncologist [facility] CC: -Dr. Trev Sutton, Neurosurgery, [facility] -CC-Pipo Aviles MD, Radiation Oncology, [facility], [facility], [facility], [facility] -Joe Santos MD, Nephrology Claudio Parks MD [id number] [facility], [address] [place] [address] PHONE: -Dr. Catarino Camacho, Epilepsy, [facility] PCP Breanne Whittington MD PCP - General Family Practice 12/17/2020 [address] [facility] [id number] ; documented in this encounterMer[facility]05-01-2023 Miscellaneous Notes* Telephone Encounter - Leah Cee - 09/11/2022 8:06 AM EDT Refill Needed : Requested Prescriptions Pending Prescriptions Disp Refills lacosamide (VIMPAT) 100 mg tab 360 tablet 4 Sig: Take 200 Mg BID documented in this encounterMer[facility]04-19-2023 Miscellaneous Notes* Telephone Encounter - Anabel Recinos - 08/30/2022 1:59 PM EDT Called PT spoke to him gave him the names of our providers as well as [facility] for cardio, he will goover them with his and call back and schedule with whom he likes. Anabel MORALES * Telephone Encounter - Breanne Whittington MD - 08/30/2022 12:17 PM EDT Consult placed. Recommend here or [facility] * Telephone Encounter - Danielle Campbell RN - 08/30/2022 11:58 AM EDT Patient calls and states that he was seeing Dr. Parks as scada technician, however Dr. Parks left [facility]. Patient would like to find scada technician within the [facility]. Patientasking if provider can write referral so that he can scheduled scada technician appointment within [facility]? Patient also asking if provider would have any scada technician recommendations? Please review and advise, Danielle Campbell RN documented in this encounterMer[facility]04-06-2023 Miscellaneous Notes* Telephone Encounter - Ruth Morales - 08/17/2022 4:57 PM EDT Refill Needed : Requested Prescriptions Pending Prescriptions Disp Refills gabapentin (NEURONTIN) 300 mg capsule 60 capsule 1 Sig: Titration: Week 1: 300 mg at bedtime; Week 2: 300 mg pm, and 300 mg at bedtime, and stay on that dose until further recommendations. Please call MD on the 3rd week to get further advice on the dose. CPharmacy Name : [facility] Contact documented in this encounterMer[facility]03-22-2023 History of Present illness Narrative* Yancy Centeno MD - 08/02/2022 2:48 PM EDT Images from the original note were not included. Neurological Start BRAIN TUMOR CENTER NEURO-ONCOLOGY VIRTUAL VISIT NOTE This is a virtual visit using HIPAA compliant video platform. It required patient-provider interaction for the medical decision making as documented below. The patient is accompanied by his Damaris who is a nurse. Diagnosis: Left parasagittal meningioma, s/p (08/16/2020-08/20/2020) GKSRS (25Gy/5fx) Subjective History of Present Illness: Watson Rodriguez is a 62 year old male investigated for right leg numbness and weakness (couldn't stand on it) April 2020. Work up for lumbar spine cause non conclusive. He had an episode of seizureand MRI brain showed left parasaggital dural based lesion 4.9 x3.5x4.2 cm with small nodule extending to right side. His right leg still numb and weakness. High step gait to avoid dragging his right lower extremity. He had GK-SRS to the tumor (25Gy/5fx) from 08/16/2020-08/20/2020. IMPORTANT POINTS OF THE PATIENT'S HISTORY AND PROGRESSION: MENINGIOMA DIAGNOSIS: Mr. Wilder presented back on April 14, 2020, with a complaint of right leg numbness and weakness, and foot drop, this happened after the day before doing heavy lifting, by caring an object waitingaround 20 pounds, and shoveling snow. He was evaluated, initially back in April 2020 he had images of the lumbosacral region which were not revealing, but he was diagnosed with a presumptive radiculopathy at the level of 5, for which he underwent an EMG that was unrevealing also, and he went on to receive an L5 transforaminal injection without any help. He then was evaluated, and there is cerebrovascular neurology clinic, on July 19, 2020 as he was not getting better. At that time, because the event happened acutely, the working diagnosis of a stroke was given. Brain MR images performed on July 27, 2020 revealed rather a large parasagittal mass arising from the falx, involving both sides, more the left than the right, centered in the frontal regions and parietal lobe levels. Radiologically, this tumor was most compatible, with a meningioma. 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 This finding, correlated with the patient's presentation, and the weakness and paresthesias, may have been due to an acute event of a seizure back on April 14, 2020, however the leg weakness, also as a result of the tumor. The patient was referred to see Dr. Sutton, from neurosurgery at the [facility]. Dr. Sutton recommended gamma knife which he received, between August 16 through August 20, 2020. History of Present Illness: Watson Rodriguez is a 61 year old male investigated for right leg numbness and weakness (couldn't stand on it) April 2020. Work up for lumbar spine cause non conclusive. He had an episode of seizureand MRI brain showed left parasaggital dural based lesion 4.9 x3.5x4.2 cm with small nodule extending to right side. His right leg still numb and weakness. High step gait to avoid dragging his right lower extremity. He had GK-SRS to the tumor (25Gy/5fx) from 08/16/2020-08/20/2020. -His main concern is tinnitus, that is very bothersome and is affecting his quality of life quite significantly. IMPORTANT POINTS OF THE PATIENT'S HISTORY AND PROGRESSION: 1 - MENINGIOMA PRESUMED DIAGNOSIS: Left parasagittal meningioma, s/p (08/16/2020-08/20/2020) GKSRS (25Gy/5fx) HAS NOT HAD SURGERY Brain MR is Jan 26, 2022 Results MRI BRAIN WO/W IVCON (Order [id number]) Patient Info Patient Name Sex Watson Rose ([id number]) Male 1960 01/26/2022 12:11 PM - Radiology, Oru In Impression IMPRESSION: Minimal decrease in size of the parafalcine meningioma compared to the prior exam. Adjacent T2/FLAIR hyperintense vasogenic edema/posttreatment changes in the left parietal centrum semiovale and lopez radiata are unchanged. Follow up with Dr. Sutton Feb 06, 2022 INTERIM EVENTS 02/08/22 The patient tells me that Dr. Sutton felt that the peritumoral edema is causing his seizures, and that Dr. Sutton felt that bevacizumab could help the peritumoral edema, and may help his seizures, and his discomfort from the right leg. INTERIM EVENTS 04/24/2022 MRI from 04/21/2022. No change per neuroradiology report. I also reviewed the image, and I also se no change in the tumor bed, neither in the hyperintense changes seen in the FLAIR sequences , suggestive of edema. INTERIM EVENTS 08/02/2022 MRI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 practice. In order to decrease the possibility of steroid edema for flying, empirically recommended for the patient to take dexamethasone 2 mg daily, the day prior to the flight, the day of the flight, and theday after the flight. I told him, that he suffered an empiric approach but this is my practice. 13- DIAGNOSED WITH COVID-19 ON Sunday. Achy of muscle, and sore throat, last week and tested POS for COVID. He is getting better, no developing new symptoms. He contacted his PCP and recommended antivirals, but says that Dr. Acuna noted that there are interactions with other medications. The patient opted not to go on any antivirals. I advised him to keep Dr. Acuna appraised of his symptoms. HE HAS BEEN OFF DEXAMETHASONE FOR A WHILE. 14-PHOTOPHOBIA/PHONOPHOBIA. -Going on since after his stereotactic radiosurgery (Gamma knife) Discussion: May be a migraine like phenomenon - unlikely to be seizures. 15-Neck pain: 06/08/2022 Therapy Status Data Form Past Medical History: PAST MEDICAL HISTORY Diagnosis Date Acute myocardial infarction of lateral wall (HCC) 2012 s/p LAD stent Benign neoplasm of colon Benign neoplasm of meninges (HCC) 08/02/2020 Hyperlipidemia Seizure (HCC) focal motor Past Surgical History: PAST SURGICAL HISTORY Procedure Laterality Date COLONOSCOPY FLX DX W/COLLJ SPEC WHEN PFRMD 10/29/2009 Colonoscopy HEMORRHOID;BAND LIGAT, SNGL/MUL 12/2016 PAST SURGICAL HISTORY OF Left 04/2017 left knee arthroscopy - meniscus PAST SURGICAL HISTORY OF 01/2013 PTCA x 1 - LAD Family History: FAMILY HISTORY Problem Relation Age of Onset Colon Cancer Mother ascending large intestine removed 2008 at 80 years old Colon Cancer Maternal Grandmother portion lower colon removed 60 years old, colostomy Social History Tobacco Use Smoking status: Never Smokeless tobacco: Never Vaping Use Vaping Use: Never used Substance Use Topics Alcohol use: No Drug use: No Allergies: Atorvastatin Current Outpatient Medications on File Prior to Visit Medication Sig levETIRAcetam (KEPPRA) 500 mg tablet Take 2 tablets by mouth twice daily. midazolam (NAYZILAM) 5 mg/spray (0.1 mL) nasal spray Use 1 spray in one nostril as needed for seizures. May repeat dose in alternate nostril after 10 minutes based on response and tolerability. Only take for seizures lasting more than 3 minutes or more than 3 seizures in an hour clonazePAM orally disintegrating (KLONOPIN WAFER) 1 mg disintegrating tablet Dissolve 1 tablet under the tongue three times daily as needed (seizures) for up to 30 days. lacosamide (VIMPAT) 100 mg tab Take 200 Mg BID sildenafil (VIAGRA) 100 mg tablet Take 1 pill 1 hour prior to sexual activity on empty stomach dexAMETHasone (DECADRON) 2 mg tablet 2 mg the day prior to the flight, the day of the flight and the day after the flight. CPAP Initiate Auto PAP @ 5-20 cm of water with humidification. Mask (per patient preference) optional chin strap (if indicated) , filters, tubing, humidifier and lifetime supplies. rosuvastatin (CRESTOR) 40 mg tablet Take 40 mg by mouth. Multivitamin capsule Take 1 capsule by mouth once daily. aspirin(ADULT LOW DOSE ASPIRIN 81 MG TAB, DELAYED RELEASE) Take one(1) tablet daily. No current facility-administered medications on file prior to visit. Review of systems: SEE ABOVE Constitutional: No recent fever or weight loss. Eyes: No history of glaucoma or cataracts. ENMT: No recent ear infection, nasal congestion, mouth sores or sore throat. See HPI CV: No history of chest pain, palpitations Right leg swelling, SEE HPI Respiratory: No history of SOB, asthma or recent cough. Gastrointestinal: No history of nausea, vomiting, dysphagia or abdominal pain. Genitourinary: No history of hematuria or dysuria. Musculoskeletal: No complaint of arthritis Has Right leg weakness, see HPI. Psychiatric: No history of hallucinations He feels somewhat anxious and also down emotionally as his neurological disability is affecting hisQOL. ROS Neurological: SEE HPI No complaint of headache. Complaint of tinnitus, bilateral . No complaint of decreased hearing. No complaint of diplopia. No complaints of decreased visual acuity. Complaint of RT arm/leg numbness. Problem with RT limb coordination. No complaint of syncope Complaint of seizures, see HPI No loss of consciousness. Objective No physical Exam was performed, as this was the virtual visit, however on observation the patient appeared in no distress, he was eloquent, no language dysfunction that I could elicit, no cranial nerve abnormalities are grossly on observation. Karnofsky performance status: 90 - Able to carry on normal activity, minor signs or symptoms of disease. ECOG performance status: 1 - Restricted in physically strenuous activity but ambulatory and able tocarry out work of a light or sedentary nature, e.g., light house work or office work. PHQ 2 and 9 Total Scores 02/22/2022 PHQ-2 Score 0 PHQ-9 Score 0 Labs: CBC Latest Ref Rng & Units 03/20/2022 04/10/2022 05/01/2022 WBC 3.70 - 11.00 k/uL 5.07 4.33 4.80 RBC 4.20 - 6.00 m/uL 4.60 4.59 4.58 HEMOGLOBIN 13.0 - 17.0 g/dL 14.4 14.6 14.4 HEMATOCRIT 39.0 - 51.0 % 41.1 40.4 39.2 MCV 80.0 - 100.0 fL 89.3 88.0 85.6 MCH 26.0 - 34.0 pg 31.3 31.8 31.4 MCHC 30.5 - 36.0 g/dL 35.0 36.1(H) 36.7(H) RDW-CV 11.5 - 15.0 % 11.9 11.9 11.8 PLATELETS 150 - 400 k/uL 185 169 177 MPV 9.0 - 12.7 fL 8.3(L) 8.6(L) 8.6(L) BASO% % 0.4 0.5 0.2 ABS NEUT (ANC) 1.45 - 7.50 k/uL 3.24 2.76 3.40 ABS LYMPH 1.00 - 4.00 k/uL 1.20 0.98(L) 0.90(L) ABS MONO <0.87 k/uL 0.53 0.52 0.44 ABS EOSIN <0.46 k/uL 0.07 0.04 0.04 ABS BASO <0.11 k/uL <0.03 <0.03 <0.03 NRBC /100 WBC 0.0 0.0 0.0 DIFF TYPE - - - - CMP Latest Ref Rng & Units 04/10/2022 04/21/2022 05/01/2022 SODIUM 136 - 144 mmol/L 133(L) - 133(L) POTASSIUM 3.7 - 5.1 mmol/L 4.4 - 4.3 CHLORIDE 97 - 105 mmol/L 99 - 101 CO2 22 - 30 mmol/L 27 - 27 GLUCOSE 74 - 99 mg/dL 88 - 99 BUN 9 - 24 mg/dL 12 - 14 CREATININE 0.73 - 1.22 mg/dL 1.02 - 0.94 EGFR >=60 mL/min/1.73m 82 - 91 EGFR-ALL OTHER RACES . - - - EGFR- - - - - PROTEIN, TOTAL 6.3 - 8.0 g/dL 6.5 6.9 6.2(L) ALBUMIN 3.9 - 4.9 g/dL 4.3 - 4.2 CALCIUM, TOTAL 8.5 - 10.2 mg/dL 8.6 - 8.9 BILIRUBIN, TOTAL 0.2 - 1.3 mg/dL 0.4 - 0.5 AST 14 - 40 U/L 19 - 17 ALT 10 - 54 U/L 16 - 12 ALKALINE PHOSPHATASE 38 - 113 U/L 67 - 65 Final Pathology: N/A PATIENT HAS NOT HAD A BIOPSY OF HIS BRAIN TUMOR. Imaging: Results MRI BRAIN WO/W IVCON (Order [id number]) Patient Info Patient Name Sex Watson Rose ([id number]) Male 1960 01/26/2022 12:11 PM - Radiology, Oru In Impression IMPRESSION: Minimal decrease in size of the parafalcine meningioma compared to the prior exam. Paper Goods Machine Operator[facility] Transcribe Date/Time: Jan 26 2022 12:02P Dictated by : FREDI CARPENTER MD This examination was interpreted and the report reviewed and electronically signed by: FREDI CARPENTER MD on Jan 26 2022 12:09PM EST Adjacent T2/FLAIR hyperintense vasogenic edema/posttreatment changes in the left parietal centrum semiovale and lopez radiata are unchanged. Local mass effect is again noted and unchanged. No new intracranial enhancing lesions. Assessment & Plan Mr. Watson Rodriguez is a 61-year-old male investigated for right leg numbness and weakness (couldn'tstand on it) April 2020. Work up for lumbar spine cause non conclusive. 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 His right leg still numb and weak. High step gait to avoid dragging his right lower extremity. He had GK-SRS to the tumor (25Gy/5fx) from 08/16/2020-08/20/2020. Mr. 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 He tolerated his treatments well. No side effects. His overall symptoms improved including his QOL. PLAN: Meningioma: -Plan for brain MR w and w/o on 07/31/2022 -In person visit with me on 08/02/2022. Seizures: -Continue AED: levETIRAcetam (KEPPRA) 500 mg tablet lacosamide (VIMPAT) 100 mg tab RESCUE MEDICATIONS for BREAKTHROUGH SEIZURES ONLY Take 2 tablets by mouth twice daily. Take 200 Mg BID midazolam (NAYZILAM) 5 mg/spray (0.1 mL) nasal spray OR Use 1 spray in one nostril as needed for seizures. May repeat dose in alternate nostril after 10minutes based on response and tolerability. Only take for seizures lasting more than 3 minutes or more than 3 seizures in an hour clonazePAM orally disintegrating (KLONOPIN WAFER) 1 mg disintegrating tablet Dissolve 1 tablet under the tongue three times daily as needed (seizures) for up to 30 days. Levetiracetam (Keppra) and lacosamide (Vimpat) blood levels in the am, prior to the am dose. In 1-2weeks time. -Rescue medications for breakthrough seizures using either midazolam nasal spray, within 24 hours, and clonazepam sublingual, but not to use it on the same day as midazolam. I discussed with the patient the potential benefits and side effects of this medications and he knows when and how to use them. Driving a motor vehicle, car: -Driving test with Rehab - simulation center. Test completed, was deemed he is Ok to drive. He is driving a car now. Follow-up with Dr. Sutton and Dr. 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 Follow with his primary physician Dr. Whittington. Follow up with scada technician Dr. Claudio Parks for cardiology care. Follow up with Dr. Joe Santos, for nephology care, as patient has one functional kidney. At the end, Mr. Rodriguez and his Damaris, NARCISA, verbalized understanding, and agreement with above recommendations and had no further questions or concerns for the moment. I encourage him to call me at my office if he has any questions about the above plan. I spent a total of 35 minutes which included preparing to see the patient, [id number] patient care, completing clinical documentation, obtaining and/or reviewing separately obtained history, performing a medically appropriate examination, counseling and educating the patient/family/caregiver, ordering medications, tests, or procedures, communicating with other HCPs (not separately reported), independently interpreting results (not separately reported), communicating results to the patient/family/caregiver, and care coordination (not separately reported). Yancy Centeno MD Staff Neuro-Oncologist [facility] CC: -Dr. rTev Sutton, Neurosurgery, [facility] -CC-Pipo Aviles MD, Radiation Oncology, [facility], [facility], [facility], [facility] -Joe Santos MD, Nephrology Claudio Parks MD [id number] [facility], [address] [place] [address] PHONE: -Dr. Catarino Camacho, Epilepsy, [facility] PCP Breanne Whittington MD PCP - General Family Practice 12/17/2020 [address] [facility] [id number] ; documented in this encounterMercy Health St. [facility]01-24-2023 Miscellaneous Notes* Telephone Encounter - Mariella Juan - 06/06/2022 6:15 PM EST Done. Mariella * Telephone Encounter - Florencia Garrett RN - 06/06/2022 1:57 PM EST Can we move patient to 08/02/22 at 3pm in person? Dr Devlin' template in July has changed and he only has morning appointments on Tuesdays and patient is scheduled on es pm Thank you Florencia documented in this encounterMercy Health St. [facility]01-17-2023 History of Present illness Narrative* Breanne Whittington MD - 05/30/2022 2:40 PM EST Patient presents with: Follow Up HPI: Patient presents today for office visit for follow up. Cervical X-ray from 04/03/22 showed moderate mid and lower cervical spondylosis and osteophytosis. Mild disc space narrowing at C4-5 and C6-7. No fracture or prevertebral swelling. Moderate foraminal encroachment bilaterally at C3-4, C4-5 and C5-6. Normal lordosis. Normal mineralization. Neck is feeling better. Doing physical therapy. Using ibu prn. Overall is improving. Ultrasound from 04/03/22 no abnormality noted. MRI scheduled for 07/31/22. Started PT end of April. Helping. Still experiencing intermittent daily right foot burning, lasting from 30 [address] Carrillo discussed possible small fiber neuropathy and mentioned considering biopsy. Declined biopsy due to being exploratory. Burning has gotten better since immunotherapy treatments. Burning is less frequent and less severe now. Followed by Neuro. Discuss labs being consistently low and discuss x-ray and ultrasound from March. Reviewed labs that are overall ok. Discussed that his sodium is likely related to his meds. Still seeing Dr Gregory. See previous ov: Patient presents today for office visit for multiple concerns. Has pain on right side of neck from behind right ear radiates down right shoulder X 1 month. Had medical massage and chiropractor visit on 03/29/22 that seems to have helped. Currently on immunotherapy treatment. Started infusions approx 1 month ago and that's when he noticed the pain started. Has not taken any NSAIDS due to seizure meds. Noticed enlarged lymph nodes on right side of throat. Seems bigger on right side than left. Denies pain. Denies fever or chills. No sore throat. Ear pain. Pain is worse with movement. Has been there for three or four weeks. He feels there is a larger lump on the right vs the left. No dental pain. Follow up on right foot pain. Saw Lorena. Had testing. Emg was normal. They had discussed a small fiber neuropathy as a possibility. They were going to consider a biopsy. Last lab was slightly up with the glucose. Ultrasound was normal. Neck xray showed degenerative changes. MEDICATIONS: Current Outpatient Medications Medication Sig levETIRAcetam (KEPPRA) 500 mg tablet Take 2 tablets by mouth twice daily. midazolam (NAYZILAM) 5 mg/spray (0.1 mL) nasal spray Use 1 spray in one nostril as needed for seizures. May repeat dose in alternate nostril after 10 minutes based on response and tolerability. Only take for seizures lasting more than 3 minutes or more than 3 seizures in an hour clonazePAM orally disintegrating (KLONOPIN WAFER) 1 mg disintegrating tablet Dissolve 1 tablet under the tongue three times daily as needed (seizures) for up to 30 days. lacosamide (VIMPAT) 100 mg tab Take 200 Mg BID sildenafil (VIAGRA) 100 mg tablet Take 1 pill 1 hour prior to sexual activity on empty stomach dexAMETHasone (DECADRON) 2 mg tablet 2 mg the day prior to the flight, the day of the flight and the day after the flight. CPAP Initiate Auto PAP @ 5-20 cm of water with humidification. Mask (per patient preference) optional chin strap (if indicated) , filters, tubing, humidifier and lifetime supplies. rosuvastatin (CRESTOR) 40 mg tablet Take 40 mg by mouth. Multivitamin capsule Take 1 capsule by mouth once daily. aspirin(ADULT LOW DOSE ASPIRIN 81 MG TAB, DELAYED RELEASE) Take one(1) tablet daily. No current facility-administered medications for this visit. ALLERGIES: ALLERGIES Allergen Reactions Atorvastatin Myalgia, Other: See Comments PAST MEDICAL HISTORY Diagnosis Date Acute myocardial infarction of lateral wall (HCC) 2012 s/p LAD stent Benign neoplasm of colon Benign neoplasm of meninges (HCC) 08/02/2020 Hyperlipidemia Seizure (HCC) focal motor PAST SURGICAL HISTORY Procedure Laterality Date COLONOSCOPY FLX DX W/COLLJ SPEC WHEN PFRMD 10/29/2009 Colonoscopy HEMORRHOID;BAND LIGAT, SNGL/MUL 12/2016 PAST SURGICAL HISTORY OF Left 04/2017 left knee arthroscopy - meniscus PAST SURGICAL HISTORY OF 01/2013 PTCA x 1 - LAD FAMILY HISTORY Problem Relation Age of Onset Colon Cancer Mother ascending large intestine removed 2008 at 80 years old Colon Cancer Maternal Grandmother portion lower colon removed 60 years old, colostomy Social History Tobacco Use Smoking status: Never Smokeless tobacco: Never Vaping Use Vaping Use: Never used Substance Use Topics Alcohol use: No Drug use: No Reviewed current medications, allergies, past medical history, surgical history, family history andsocial history today. REVIEW OF SYSTEMS All other reviewed and negative other than HPI. VITALS: BP 136/80 Pulse 65 Ht 177.8 cm (5' 10) Wt 84.9 kg (187 lb 3.2 oz) SpO2 98% BMI 26.86 kg/m Last 4 Encounter Wt Readings: Date: Wt: 03/31/2022 85.8 kg (189 lb 3.2 oz) 03/20/2022 82.6 kg (182 lb) 02/27/2022 84.3 kg (185 lb 13.6 oz) 11/29/2021 83.9 kg (185 lb) PHYSICAL EXAMINATION: General appearance: Well appearing, alert, in no acute distress, well-hydrated, well nourished. Skin: Skin color, texture, turgor normal, no suspicious rashes or lesions Head: Normocephalic, no masses, lesions, tenderness or abnormalities Lungs: Lungs clear to auscultation. No wheezing, rhonchi, rales Heart: RRR without murmur, gallop, or rubs. No ectopy Abdomen: Normal abdominal exam, Abdomen soft, non-tender. Bowel sounds normal. No masses, organomegaly Extremities: No deformities, edema, skin discoloration, clubbing or cyanosis. Good capillary refill. ASSESSMENT/PLAN: 1. 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 Per neuro 2. Seizure (HCC) - ICD9: 780.39, ICD10: R56.9 - doing well. 3. Meningioma (HCC) - ICD9: 225.2, ICD10: D32.9 - per neuro 4. Focal motor seizure (HCC) - ICD9: 345.50, ICD10: G40.109 5. Coronary artery disease involving benton coronary artery of benton heart without angina pectoris- ICD9: 414.01, ICD10: I25.10 - continue meds. Red flags for re-assessment reviewed with patient in detail. - follow with Dr. Parks. Breanne Whittington MD Medical Decision Making: Problems: Moderate: 2+ stable chronic illnesses Data: Unique test result(s) reviewed: 3+ Medical Decision Making Level: 4 - Moderate documented in this encounterMercy Health St. [facility]01-06-2023 Miscellaneous Notes* Telephone Encounter - Kelly Lynn RN - 05/19/2022 11:35 AM EST [email or web address] message sent to patient. documented in this encounterMercy Health St. [facility]12-12-2022 Miscellaneous Notes* Telephone Encounter - Florencia Garrett RN - 04/24/2022 11:03 AM EST Time Frame: week of July 17 Orders: MRi Brain- ok day before at [facility] Provider: Dr Devlin Diagnosis: atypical meningioma -In person visit- please allow for 60 min documented in this encounterMercy Health St. Charles [facility]12-12-2022 Instructions* Patient Instructions* Trev Sutton MD - 04/24/2022 9:50 AM EST Personal review of image, tracing or specimen: I reviewed his brain MRIs through February of last year. 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 New MRI showed the FLAIR changes have slightly improved since last MRI in January.He still complains of sensory changes in his right leg, but overall he has been stable. He was started on Bevacizumab infusions for cerebral edema. He was tolerating his treatments well. No side effects. He is off Tentral and Vit E. Treatment Options and Risks: I have discussed the management options and their respective risks andbenefits with the patient. We will repeat his brain MRI in one year with a new follow up virtual visit. I believe that Bevacizumab is a good option for him at this point for peritumoral edema. He sawDr. Centeno today who is managing his Avastin and will get another MRI two months after his last Avastin treatment Recommendations: As above Medicines: As above Instructions: Continue present activity documented in this encounterMercy Health St. [facility]12-12-2022 History of Present illness Narrative* Trev Sutton MD - 04/24/2022 9:20 AM EST Images from the original note were not included. [facility] Follow-up Patient Consultation Referred by Breanne Whittington [address] [facility] [id number] We had a virtual visit conducted via Zoom. I received consent from the patient to perform the visitusing this platform. Diagnosis: Left parasagittal Meningioma, s/p GKRS 25Gy/5fx (08/16/2020- 08/20/2020) Subjective History of Present Illness: Mr. Watson Rodriguez is a very pleasant 62-year-old male patient with a history of left parasagittal Meningioma. He initially experienced transient right lower extremity weakness and numbness in April 2020. The work-up lumbar MRI showed no apparent cause and the brain MRI was obtained in July 2020 that showed a large left parasagittal enhancing lesion. He visited our clinic and Meningioma was suspected. Surgery vs GKRS was discussed and he proceeded with GKRS 25 GY/5 fx completed on 08/20/2020. Since GKRS he had side effects from steroids including insomnia. Steroid treatment was discontinued in early October and feeling better. He had another partial seizure on 10/29 and Keppra was increased to 1g BID. He has had heaviness in the left lower extremity and visited the local ED. DVT was negative and he is continuing PT but minimal improvements. He denies any headaches, nausea, vomiting, seizures, or visual changes. Clinic visit on November 25, 2020: November 13 partial seizure lasting 20 mins. November 17 a few seconds. Then a second seizure later in the day. Currently, the patient reports no seizure in the last week since November 17. February 18, 2021 update: Mr. Rodriguez is having 2-3 partial seizures a week, lasting a few seconds, mostly restricted to his right leg, but sometimes spread to his right arm. His major complain is fatigue and lack of energy. He refers that he has good and bad days regarding his energy levels, but overall he is frequently tired and unable to exercise. He denies headaches, nausea, vomiting and other symptoms. He refers that the numbness in his left foot is stable. He has tried steroids is the past,after GK, and was not able to sleep for several days, therefore, he would like to avoid steroids, if possible. April 25, 2021 update: Mr. Rodriguez has been on Trental, Vitamin E and Zonegran. He feels that his right leg is stronger and his right arm is normal when compared to the left. Since changing his AED his seizures have improved in frequency, but he is having constant tinnitus, sound hypersensitivity and photosensitivity. He is very limited by this symptoms and has not been able to function properly, social and professionally. July 25, 2021 update: Mr. Rodriguez has switched from Zonegran to Vimpat due to uncontrolled seizures and tinnitus. He is currently on 300mg for the past 3 weeks and refers that his partial sensory and motor seizures have improved considerably. He has been on Trental and Vitamin E. He still complains about constant tinnitus and light sensitivity. He refers that he is not back to his baseline from late November, early December 2020 when he started having new seizures. He still complains of sensory changes in his right leg, but overall he has been stable. Overall, he has been stable. February 06, 2022 update: Mr. Rodriguez still complains of tinnitus. He has been followed by Dr. Ortiz (Neuro-protection chief industrial plant). For the presumed treatment effects causing peritumoral edema, he is on Trental and Vit. E. He is off steroids. He is still having light and sound sensitivity. Last generalized seizure in August this year. His last focal motor seizure was last night (followed by Dr. Devlin). Hefeels that his right leg is the same as on his last consult in July this year. Patient recently saw Dr. 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 He was tolerating his treatments well. No side effects. He is off Tentral and Vit E. Patient states some improvement on his right foot burning pain after having been started on Avastin. His last partial seizure episode was in December. Receiving Bevacizumab: 3 infusions already done. One more pending (05/01/2022). Today, patient is seeing Dr. Centeno for treatment follow-up. Last Chemo: N/A Current Steroids dose: Stopped steroids October 13 Current AED Dose: Vimpat + Keppra + Clonazepam SOS Past Medical History: PAST MEDICAL HISTORY Diagnosis Date Acute myocardial infarction of lateral wall (HCC) 2012 s/p LAD stent Benign neoplasm of colon Benign neoplasm of meninges (HCC) 08/02/2020 Hyperlipidemia Seizure (HCC) focal motor Past Surgical History: PAST SURGICAL HISTORY Procedure Laterality Date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 would be unlikely that he has a lumbosacral pathology to a peripheral process to explain this. He had a lumbar MRI in May 2020, and to my eye I see no significant pathology, and the report also shows no significant neuro foramina narrowing orspinal canal stenosis, other than some mild narrowing of the neural foramina form spurring at L4-5. THIS HAS IMPROVED. 03/20/22. This is still occurring several times a day, not getting better with MAMI. 12: BURNING SENSATION OF RIGHT LOWER EXTREMITY. HOWEVER HE SAYS THAT SINCE HE STARTED LACOSAMIDE, HE HAS HAD A BURNING SENSATION THAT COMES IN PAROXYSMAL AND STEREOTYPICAL FASHION, AND IS QUITE BOTHERSOME. The event can last 1-2 minutes, and can dissipate if he takes clonazepam, but it can take up to 30 minutes to go away. The patient provided to em with a log of symptom binh detailed fashion which I reviewed, and has been scanned into his chart. INTERIM EVENTS 02/01/22 Has yanira seen by podiatry Dr. Augustin Carrillo -Had EMG no abnormality -01/26/22 MRI Rt ankle also normal. -Dr. Neal neurology, has seen patient last year, recommended to do a nerve biopsy to exclude small fiver neuropathy. Mr. Wilder declined this evaluation. 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 PLAN: My own empiric practice. In order to decrease the possibility of steroid edema for flying, empirically recommended for the patient to take dexamethasone 2 mg daily, the day prior to the flight, the day of the flight, and theday after the flight. I told him, that he suffered an empiric approach but this is my practice. 13- DIAGNOSED WITH COVID-19 ON Sunday. Achy of muscle, and sore throat, last week and tested POS for COVID. He is getting better, no developing new symptoms. He contacted his PCP and recommended antivirals, but says that Dr. Acuna noted that there are interactions with other medications. The patient opted not to go on any antivirals. I advised him to keep Dr. Acuna appraised of his symptoms. HE HAS BEEN OFF DEXAMETHASONE FOR A WHILE. 14-PHOTOPHOBIA/PHONOPHOBIA. -Going on since after his stereotactic radiosurgery (Gamma knife) Discussion: May be a migraine like phenomenon - unlikely to be seizures. Therapy Status Data Form Past Medical History: PAST MEDICAL HISTORY Diagnosis Date Acute myocardial infarction of lateral wall (HCC) 2012 s/p LAD stent Benign neoplasm of colon Benign neoplasm of meninges (HCC) 08/02/2020 Hyperlipidemia Seizure (HCC) focal motor Past Surgical History: PAST SURGICAL HISTORY Procedure Laterality Date COLONOSCOPY FLX DX W/COLLJ SPEC WHEN PFRMD 10/29/2009 Colonoscopy HEMORRHOID;BAND LIGAT, SNGL/MUL 12/2016 PAST SURGICAL HISTORY OF Left 04/2017 left knee arthroscopy - meniscus PAST SURGICAL HISTORY OF 01/2013 PTCA x 1 - LAD Family History: FAMILY HISTORY Problem Relation Age of Onset Colon Cancer Mother ascending large intestine removed 2009 at 80 years old Colon Cancer Maternal Grandmother portion lower colon removed 60 years old, colostomy Social History Tobacco Use Smoking status: Never Smokeless tobacco: Never Vaping Use Vaping Use: Never used Substance Use Topics Alcohol use: No Drug use: No Allergies: Atorvastatin Current Outpatient Medications Medication Sig pentoxifylline ER (TRENTAL) 400 mg CR tablet Take 1 tablet by mouth three times daily with meals. YES Vitamin E, dl, acetate, (VITAMIN E) 400 unit capsule Take 1 capsule by mouth three times daily. YES lacosamide (VIMPAT) 50 mg tab Take 200 mg BID (give the 50 mg tabs) levETIRAcetam (KEPPRA) 750 mg tablet Take 1 tablet by mouth twice daily. midazolam (NAYZILAM) 5 mg/spray (0.1 mL) nasal spray Use 1 spray in one nostril as needed for seizures. May repeat dose in alternate nostril after 10 minutes based on response and tolerability. Only take for seizures lasting more than 3 minutes or more than 3 seizures in an hour sildenafil (VIAGRA) 50 mg tablet Take 1 tablet by mouth as needed. CPAP Initiate Auto PAP @ 5-20 cm of water with humidification. Mask (per patient preference) optional chin strap (if indicated) , filters, tubing, humidifier and lifetime supplies. rosuvastatin (CRESTOR) 40 mg tablet Take 40 mg by mouth. YES Multivitamin capsule Take 1 capsule by mouth once daily. YES clopidogrel (PLAVIX) 75 mg tablet Take 75 mg by mouth once daily. YES aspirin(ADULT LOW DOSE ASPIRIN 81 MG TAB, DELAYED RELEASE) Take one(1) tablet daily. YES No current facility-administered medications for this visit. Review of systems: SEE ABOVE Constitutional: No recent fever or weight loss. Eyes: No history of glaucoma or cataracts. ENMT: No recent ear infection, nasal congestion, mouth sores or sore throat. See HPI CV: No history of chest pain, palpitations Right leg swelling, SEE HPI Respiratory: No history of SOB, asthma or recent cough. Gastrointestinal: No history of nausea, vomiting, dysphagia or abdominal pain. Genitourinary: No history of hematuria or dysuria. Musculoskeletal: No complaint of arthritis Has Right leg weakness, see HPI. Psychiatric: No history of hallucinations He feels somewhat anxious and also down emotionally as his neurological disability is affecting hisQOL. ROS Neurological: SEE HPI No complaint of headache. Complaint of tinnitus, bilateral . No complaint of decreased hearing. No complaint of diplopia. No complaints of decreased visual acuity. Complaint of RT arm/leg numbness. Problem with RT limb coordination. No complaint of syncope Complaint of seizures, see HPI No loss of consciousness. Objective No physical Exam was performed, as this was the virtual visit, however on observation the patient appeared in no distress, he was eloquent, no language dysfunction that I could elicit, no cranial nerve abnormalities are grossly on observation. Karnofsky performance status: 70 - Cares for self, unable to carry on normal activity or to do work. ECOG performance status: 1 - Restricted in physically strenuous activity but ambulatory and able tocarry out work of a light or sedentary nature, e.g., light house work or office work. PHQ 2 and 9 Total Scores 02/22/2022 PHQ-2 Score 0 PHQ-9 Score 0 Labs: CBC Latest Ref Rng & Units 02/27/2022 03/20/2022 04/10/2022 WBC 3.70 - 11.00 k/uL 4.84 5.07 4.33 RBC 4.20 - 6.00 m/uL 4.55 4.60 4.59 HEMOGLOBIN 13.0 - 17.0 g/dL 14.6 14.4 14.6 HEMATOCRIT 39.0 - 51.0 % 40.3 41.1 40.4 MCV 80.0 - 100.0 fL 88.6 89.3 88.0 MCH 26.0 - 34.0 pg 32.1 31.3 31.8 MCHC 30.5 - 36.0 g/dL 36.2(H) 35.0 36.1(H) RDW-CV 11.5 - 15.0 % 11.9 11.9 11.9 PLATELETS 150 - 400 k/uL 180 185 169 MPV 9.0 - 12.7 fL 8.6(L) 8.3(L) 8.6(L) BASO% % 0.2 0.4 0.5 ABS NEUT (ANC) 1.45 - 7.50 k/uL 3.30 3.24 2.76 ABS LYMPH 1.00 - 4.00 k/uL 0.91(L) 1.20 0.98(L) ABS MONO <0.87 k/uL 0.52 0.53 0.52 ABS EOSIN <0.46 k/uL 0.08 0.07 0.04 ABS BASO <0.11 k/uL <0.03 <0.03 <0.03 NRBC /100 WBC 0.0 0.0 0.0 DIFF TYPE - - - - CMP Latest Ref Rng & Units 03/20/2022 04/10/2022 04/21/2022 SODIUM 136 - 144 mmol/L 133(L) 133(L) - POTASSIUM 3.7 - 5.1 mmol/L 4.3 4.4 - CHLORIDE 97 - 105 mmol/L 98 99 - CO2 22 - 30 mmol/L 28 27 - GLUCOSE 74 - 99 mg/dL 136(H) 88 - BUN 9 - 24 mg/dL 12 12 - CREATININE 0.73 - 1.22 mg/dL 0.92 1.02 - EGFR >=60 mL/min/1.73m 93 82 - EGFR-ALL OTHER RACES . - - - EGFR- - - - - PROTEIN, TOTAL 6.3 - 8.0 g/dL 6.5 6.5 6.9 ALBUMIN 3.9 - 4.9 g/dL 4.4 4.3 - CALCIUM, TOTAL 8.5 - 10.2 mg/dL 8.9 8.6 - BILIRUBIN, TOTAL 0.2 - 1.3 mg/dL 0.4 0.4 - AST 14 - 40 U/L 23 19 - ALT 10 - 54 U/L 24 16 - ALKALINE PHOSPHATASE 38 - 113 U/L 79 67 - Final Pathology: N/A PATIENT HAS NOT HAD A BIOPSY OF HIS BRAIN TUMOR. Imaging: Results MRI BRAIN WO/W IVCON (Order [id number]) Patient Info Patient Name Sex Watson Rose ([id number]) Male 1960 01/26/2022 12:11 PM - Radiology, Oru In Impression IMPRESSION: Minimal decrease in size of the parafalcine meningioma compared to the prior exam. Paper Goods Machine Operator: NICOL Transcribe Date/Time: Jan 26 2022 12:02P Dictated by : FREDI CARPENTER MD This examination was interpreted and the report reviewed and electronically signed by: FREDI CARPENTER MD on Jan 26 2022 12:09PM EST Adjacent T2/FLAIR hyperintense vasogenic edema/posttreatment changes in the left parietal centrum semiovale and lopez radiata are unchanged. Local mass effect is again noted and unchanged. No new intracranial enhancing lesions. Assessment & Plan Mr. Watson Rodriguez is a 61-year-old male investigated for right leg numbness and weakness (couldn'tstand on it) April 2020. Work up for lumbar spine cause non conclusive. 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 His right leg still numb and weak. High step gait to avoid dragging his right lower extremity. He had GK-SRS to the tumor (25Gy/5fx) from 08/16/2020-08/20/2020. Mr. 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 He is tolerating his treatments well. No side effects. Receiving bevacizumab (mami) 02/27/22 1st infusion 03/20/22: 2nd infusion 04/10/2022 3rd Infusion. He has tolerated his infusions well with no SE. 4th infusion planned for the week of May 01, 2022. Regarding epilepsy work up, as recommended by his epilepsy physician has agreed to prolonged EEG, which he had, see above. The events of right leg burning sensation had no correlation with the EEG. This symptom is still possibly centrally driven. These events have improved by 1/3 on bevacizumab (mami) PLAN: Meningioma: -He is to complete his 4 infusions of MAMI today, /. Infusions every 3 weeks. 4th infusion for theweek of May 01, 2022. -CBC/CMP/Urine test/Urine protein prior to every infusion. -Plan for brain MR w and w/o for sometime 2 month after last infusion. -Virtual visit with me at the end of May 2022 for close follow up. -Clinic visit the day of the MRI or 1-2 days after the MRI. Seizures: -Continue lacosamide (Vimpat) at 200 mg BID for now. -Continue Keppra 750 mg BID -Rescue medications for breakthrough seizures using either midazolam nasal spray, within 24 hours, and clonazepam sublingual, but not to use it on the same day as midazolam. I discussed with the patient the potential benefits and side effects of this medications and he knows when and how to use them. -Seizure precautions as discussed above. -Follow up with Dr. Catarino Camacho from epilepsy, for review of his ambulatory/home video EEG. Driving a motor vehicle, car: -Driving test with [facility]. Test completed, was deemed he is Ok to drive. He is driving a car now. Follow-up with Dr. Sutton and Dr. 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 Follow with his primary physician Dr. Whittington. Follow up with scada technician Dr. Claudio Parks for cardiology care. Follow up with Dr. Joe Santos, for nephology care, as patient has one functional kidney. At the end, Mr. Rodriguez and his Damaris verbalized understanding, and agreement with above recommendations and had no further questions or concerns for the moment. I encourage him to call me at [facility] if he has any questions about the above plan. I spent a total of 45 minutes which included preparing to see the patient, [id number] patient care, completing clinical documentation, obtaining and/or reviewing separately obtained history, performing a medically appropriate examination, counseling and educating the patient/family/caregiver, ordering medications, tests, or procedures, communicating with other HCPs (not separately reported), independently interpreting results (not separately reported), communicating results to the patient/family/caregiver, and care coordination (not separately reported). Yancy Centeno MD Staff Neuro-Oncologist [facility] CC: -Dr. Trev Sutton, Neurosurgery, [facility] -CC-Pipo Aviles MD, Radiation Oncology, [facility], [facility], [facility], [facility] -Joe Santos MD, Nephrology Claudio Parks MD [address], [address] [place] [address] PHONE: -Dr. Catarino Camacho, Epilepsy, [facility] PCP Breanne Whittington MD PCP - General Family Practice 12/17/2020 [address] [facility] [id number] ; documented in this encounterMercy Health St. [facility]12-09-2022 History of Present illness Narrative* Leah Lynn RT(R) - 04/21/2022 11:20 AM EST Radiology Service Progress Note DATE OF SERVICE: April 21, 2022 TIME: 1:08 PM PATIENT IDENTITY VERIFICATION COMPLETED USING TWO (2) STANDARD IDENTIFIERS: Name and Date of confirmed by patient verbally. FALL SCREENING: Has the patient had 2 falls in the last year or 1 fall with injury or currently using an Ambulatory Assistive Device (Walker, Cane, Wheelchair, Crutches, etc.)? No PATIENT GENDER DATA: Male PATIENT RELEVANT IMPLANT DATA REVIEWED: Yes ALLERGIES: Reviewed and unchanged CONTRAST ALLERGY: NO. EXAM: MRI - CONTRAST TYPE: GROUP II PERIPHERAL IV DATA: Ambulatory: A peripheral IV was started in the Right antecubital site with a Angio cath: 22 gauge. RADIOLOGY DEPARTMENT: MR; Exam(s) Completed: Head: Routine Brain SIGNATURE: RT Devonte(R) PATIENT NAME: Watson Rodriguez DATE: April 21, 2022 TIME: 1:08 PM documented in this encounterMercy Health St. [facility]11-28-2022 History of Present illness Narrative* Florencia Garrett RN - 04/10/2022 4:33 PM EST Labs reviewed No proteinuria Florencia Garrett RN, BSN Edi Coordinator [facility] documented in this encounterMercy Health St. [facility]11-21-2022 History of Present illness Narrative* Latanya Ding RT(R) - 04/03/2022 10:00 AM EST Radiology Service Progress Note PATIENT NAME: Watson Rodriguez DATE OF SERVICE: April 03, 2022 TIME: 10:08 AM PATIENT IDENTITY VERIFICATION COMPLETED USING TWO (2) IDENTIFIERS: Name and Date of confirmedby patient verbally. FALL SCREENING: Has the patient had 2 falls in the last year or 1 fall with injury or currently using an Ambulatory Assistive Device (Walker, Cane, Wheelchair, Crutches, etc.)? No PATIENT GENDER DATA: Male PATIENT RELEVANT IMPLANT DATA REVIEWED: Yes RADIOLOGY DEPARTMENT: General X-ray: Exam(s) Completed: Spine X-Ray(s): Cervical AP / LAT / OBL PERIPHERAL IV DATA: Not applicable SIGNED BY: RT Marc(R) April 03, 2022 10:08 AM documented in this encounterMercy Health St. [facility]11-21-2022 History of Present illness Narrative* Pippa Swanson RDMS - 04/03/2022 9:15 AM EST Radiology Service Progress Note PATIENT NAME: Watson Rodriguez DATE OF SERVICE: April 03, 2022 TIME: 9:48 AM PATIENT IDENTITY VERIFICATION COMPLETED USING TWO (2) IDENTIFIERS: Name and Date of confirmedby patient verbally. FALL SCREENING: Has the patient had 2 falls in the last year or 1 fall with injury or currently using an Ambulatory Assistive Device (Walker, Cane, Wheelchair, Crutches, etc.)? No PATIENT GENDER DATA: Male PATIENT RELEVANT IMPLANT DATA REVIEWED: Not Applicable RADIOLOGY DEPARTMENT: Ultrasound PERIPHERAL IV DATA: Not applicable SIGNED BY: Pippa Swanson RDMS T April 03, 2022 9:48 AM documented in this encounterMercy Health [facility]. [facility]11-18-2022 History of Present illness Narrative* Breanne Whittington MD - 03/31/2022 1:39 PM EST Patient presents with: Follow Up HPI: Patient presents today for office visit for multiple concerns. Has pain on right side of neck from behind right ear radiates down right shoulder X 1 month. Had medical massage and chiropractor visit on 03/29/22 that seems to have helped. Currently on immunotherapy treatment. Started infusions approx 1 month ago and that's when he noticed the pain started. Has not taken any NSAIDS due to seizure meds. Noticed enlarged lymph nodes on right side of throat. Seems bigger on right side than left. Denies pain. Denies fever or chills. No sore throat. Ear pain. Pain is worse with movement. Has been there for three or four weeks. He feels there is a larger lump on the right vs the left. No dental pain. Follow up on right foot pain. Saw Lorena. Had testing. Emg was normal. They had discussed a small fiber neuropathy as a possibility. They were going to consider a biopsy. Last lab was slightly up with the glucose. MEDICATIONS: Current Outpatient Medications Medication Sig midazolam (NAYZILAM) 5 mg/spray (0.1 mL) nasal spray Use 1 spray in one nostril as needed for seizures. May repeat dose in alternate nostril after 10 minutes based on response and tolerability. Only take for seizures lasting more than 3 minutes or more than 3 seizures in an hour clonazePAM orally disintegrating (KLONOPIN WAFER) 1 mg disintegrating tablet Dissolve 1 tablet under the tongue three times daily as needed (seizures) for up to 30 days. lacosamide (VIMPAT) 100 mg tab Take 200 Mg BID levETIRAcetam (KEPPRA) 500 mg tablet Take 1.5 tablets by mouth twice daily. sildenafil (VIAGRA) 100 mg tablet Take 1 pill 1 hour prior to sexual activity on empty stomach Vitamin E, dl, acetate, (VITAMIN E) 400 unit capsule Take 1 capsule by mouth three times daily. dexAMETHasone (DECADRON) 2 mg tablet 2 mg the day prior to the flight, the day of the flight and the day after the flight. CPAP Initiate Auto PAP @ 5-20 cm of water with humidification. Mask (per patient preference) optional chin strap (if indicated) , filters, tubing, humidifier and lifetime supplies. rosuvastatin (CRESTOR) 40 mg tablet Take 40 mg by mouth. Multivitamin capsule Take 1 capsule by mouth once daily. aspirin(ADULT LOW DOSE ASPIRIN 81 MG TAB, DELAYED RELEASE) Take one(1) tablet daily. No current facility-administered medications for this visit. ALLERGIES: ALLERGIES Allergen Reactions Atorvastatin Myalgia, Other: See Comments PAST MEDICAL HISTORY Diagnosis Date Acute myocardial infarction of lateral wall (HCC) 2012 s/p LAD stent Benign neoplasm of colon Benign neoplasm of meninges (HCC) 08/02/2020 Hyperlipidemia Seizure (HCC) focal motor PAST SURGICAL HISTORY Procedure Laterality Date COLONOSCOPY FLX DX W/COLLJ SPEC WHEN PFRMD 10/29/2009 Colonoscopy HEMORRHOID;BAND LIGAT, SNGL/MUL 12/2016 PAST SURGICAL HISTORY OF Left 04/2017 left knee arthroscopy - meniscus PAST SURGICAL HISTORY OF 01/2013 PTCA x 1 - LAD FAMILY HISTORY Problem Relation Age of Onset Colon Cancer Mother ascending large intestine removed 2008 at 80 years old Colon Cancer Maternal Grandmother portion lower colon removed 60 years old, colostomy Social History Tobacco Use Smoking status: Never Smokeless tobacco: Never Vaping Use Vaping Use: Never used Substance Use Topics Alcohol use: No Drug use: No Reviewed current medications, allergies, past medical history, surgical history, family history andsocial history today. REVIEW OF SYSTEMS All other reviewed and negative other than HPI. VITALS: BP 120/72 Pulse 63 Ht 177.8 cm (5' 10) Wt 85.8 kg (189 lb 3.2 oz) SpO2 98% BMI 27.15 kg/m Last 4 Encounter Wt Readings: Date: Wt: 03/20/2022 82.6 kg (182 lb) 02/27/2022 84.3 kg (185 lb 13.6 oz) 11/29/2021 83.9 kg (185 lb) 11/07/2021 84.8 kg (187 lb) PHYSICAL EXAMINATION: General appearance: Well appearing, alert, in no acute distress, well-hydrated, well nourished. Skin: Skin color, texture, turgor normal, no suspicious rashes or lesions Head: Normocephalic, no masses, lesions, tenderness or abnormalities Eyes: Anicteric sclera. Pupils are equally round and reactive to light. Extraocular movements are intact. Neck: Negative findings: no adenopathy, trachea midline and normal to palpitation, thyroid normal to palpation, supple, Positive findings: he thinks he can feel a mass intermittently on the right. I am feeling definite abnormalities today. Lungs: Lungs clear to auscultation. No wheezing, rhonchi, rales Heart: RRR without murmur, gallop, or rubs. No ectopy Abdomen: Normal abdominal exam, Abdomen soft, non-tender. Bowel sounds normal. No masses, organomegaly Extremities: No deformities, edema, skin discoloration, clubbing or cyanosis. Good capillary refill. Neuro: Gait normal. Reflexes normal and symmetric. Sensation grossly intact. ASSESSMENT/PLAN: 1. Neck pain - ICD9: 723.1, ICD10: M54.2 (primary diagnosis) - XR CERV OTHER 4V AP/LAT/OBL - CONSULT TO PHYSICAL THERAPY 2. Encounter for immunization - ICD9: V03.89, ICD10: Z23 - INFLUENZA VACCINE QUADRIVALENT 6 MO - 64 YRS IM 3. Hyperglycemia - ICD9: 790.29, ICD10: R73.9 - check labs - HGB A1C 4. Paresthesia - ICD9: 782.0, ICD10: R20.2 - discussed why they had discussed biopsy. - VITAMIN B12 BLOOD - FOLATE SERUM - VITAMIN B1 (THIAMINE), WHOLE BLOOD - PROTEIN ELECTROPHORESIS SERUM W/INTERP - TSH BLD 5. Meningioma (HCC) - ICD9: 225.2, ICD10: D32.9 - per neuro 6. Seizure (HCC) - ICD9: 780.39, ICD10: R56.9 - stable. 7. Coronary artery disease involving benton coronary artery of benton heart without angina pectoris- ICD9: 414.01, ICD10: I25.10 - stable. 8. Neck mass - ICD9: 784.2, ICD10: R22.1 - US HEAD/NECK SOFT TISSUE OTHER Breanne Whittington MD Keep next ov or prn documented in this encounterMercy [facility]11-14-2022 Miscellaneous Notes* Telephone Encounter - Joe Donato - 03/27/2022 11:26 AM EST Spoke with patient over the phone today. Patient is active with [employer] , LOC 80%, $0.00 deductible has $0.00 remaining, $4500 OOP has $0.00 remaining. Estimate shows patient financial responsibility is $0.00 for each treatment in 2021 until oop max is reached. Patient stated understanding. Reference #[id number] E-Mail PT contact information. documented in this encounterMercy Health St. [facility]11-07-2022 History of Present illness Narrative* Florencia Garrett RN - 03/20/2022 3:36 PM EST Labs reviewed. No proteinuria Patient seen today by Dr Devlin. Continue with current plan Florencia Garrett RN, BSN Edi Coordinator [facility] documented in this encounterMercy Health [facility]. [facility]11-07-2022 History of Present illness Narrative* Yancy Centeno MD - 03/20/2022 11:30 AM EST Images from the original note were not included. [facility] Follow up Clinic visit Referred by Dr. Trev Sutton [id number] [facility] [id number] The patient is accompanied by his Damaris who is a nurse. 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 Work up for lumbar spine cause non conclusive. He had an episode of seizureand MRI brain showed left parasaggital dural based lesion 4.9 x3.5x4.2 cm with small nodule extending to right side. His right leg still numb and weakness. High step gait to avoid dragging his right lower extremity. He had GK-SRS to the tumor (25Gy/5fx) from 08/16/2020-08/20/2020. IMPORTANT POINTS OF THE PATIENT'S HISTORY AND PROGRESSION: MENINGIOMA DIAGNOSIS: Mr. Wilder presented back on April 14, 2020, with a complaint of right leg numbness and weakness, and foot drop, this happened after the day before doing heavy lifting, by caring an object waitingaround 20 pounds, and shoveling snow. He was evaluated, initially back in April 2020 he had images of the lumbosacral region which were not revealing, but he was diagnosed with a presumptive radiculopathy at the level of 5, for which he underwent an EMG that was unrevealing also, and he went on to receive an L5 transforaminal injection without any help. He then was evaluated, and there is cerebrovascular neurology clinic, on July 19, 2020 as he was not getting better. At that time, because the event happened acutely, the working diagnosis of a stroke was given. Brain MR images performed on July 27, 2020 revealed rather a large parasagittal mass arising from the falx, involving both sides, more the left than the right, centered in the frontal regions and parietal lobe levels. Radiologically, this tumor was most compatible, with a meningioma. 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 This finding, correlated with the patient's presentation, and the weakness and paresthesias, may have been due to an acute event of a seizure back on April 14, 2020, however the leg weakness, also as a result of the tumor. The patient was referred to see Dr. Sutton, from neurosurgery at the [facility]. Dr. Sutton recommended gamma knife which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 01/26/2022 12:11 PM - Radiology, Oru In Impression IMPRESSION: Minimal decrease in size of the parafalcine meningioma compared to the prior exam. Paper Goods Machine Operator: [facility]ITALWiley Transcribe Date/Time: Jan 26 2022 12:02P Dictated by : FREDI CARPENTER MD This examination was interpreted and the report reviewed and electronically signed by: FREDI CARPENTER MD on Jan 26 2022 12:09PM EST Adjacent T2/FLAIR hyperintense vasogenic edema/posttreatment changes in the left parietal centrum semiovale and lopez radiata are unchanged. Local mass effect is again noted and unchanged. No new intracranial enhancing lesions. Assessment & Plan Mr. Watson Rodriguez is a 61-year-old male investigated for right leg numbness and weakness (couldn'tstand on it) April 2020. Work up for lumbar spine cause non conclusive. 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 His right leg still numb and weak. High step gait to avoid dragging his right lower extremity. He had GK-SRS to the tumor (25Gy/5fx) from 08/16/2020-08/20/2020. DISCUSSION: The patient tells me, that the symptom that is affecting his quality of life the most is the burning sensation of his right foot/leg that happens in a paroxysmal and stereotypical fashion. It is important to note that the patient has had paresthesias in the past, he has described them as constant, other times as stiffness, or even edema. The patient has had, ample work-up, for this symptom with a goal to exclude other potential etiologies that may be rather focal and not necessarily secondary to his meningioma located in the parasagittal region, mostly on the parietal lobes left more than the right. The patient's , states that she believes all this began after he started Vimpat or lacosamide however the patient has been having paresthesias of the right leg since I saw him initially in apr 2021, but he feels, that this sensation of burning is different. The patient also feels that all this began after the Vimpat initiation. I did look back in the notes, and is hard to tell, whether there is a clear relationship between the initiation of Vimpat and this paresthesias. I told the patient and , that the paroxysmal and stereotypical nature of this symptom, makes it difficult to make a case that is secondary to a systemic side effect from a medication, otherwise he will be having symptoms probably bilaterally, or perhaps even more the right more than the left but is still on both limbs. I mention this, because the patient made a point that if it is unlikely that he has peripheral neuropathy, in view that Dr. Neal from neurology recommended a nerve biopsy, and if he commented thatif were to have peripheral neuropathy, he should involve both sides of the body. Hence, this rationale from the patient's perspective, it is likely applicable to Vimpat, that it would be very unlikely to give a focal symptom as a side effect. Hence, I told him that I would be reluctant to make any modifications in his antiepileptics at this time, as he was asking, and his that they would want me to start to wean him off Vimpat and change it to something else, or to increase Keppra dose. I told him, that because of the paroxysmal and stereotypical nature of this symptom, that seizures comes to mind, as I have postulated before, and work-up should be considered. Discussed with the patient, the Aven[place] in terms of elucidating the etiology of this symptom, and he is aware that I contacted his epileptologist, that saw him once, to see whether we could coordinate a video EEG monitoring, but I had not heard back from the doctor. I told the patient, that I want to elucidate whether those are seizures she is to have continuous EEG monitoring that could occur in the inpatient setting, by him being admitted to the epilepsy monitoring unit. The patient made a point, that if he is outside his usual environment, that he may not have the events, as he would not be having any triggers if he gets admitted to the epilepsy monitoring unit. From that regard, I agree with the patient and I was thinking rather to have him monitored with a ambulatory EEG with the hope, that we can capture 1 of those events, and to see whether they are epileptic or not. There are limitations for this modality of monitoring, in view that this is outpatient, the cables could come off, there could be artifact, from other external stimuli etc. I will order ambulatory EEG, for the maximum time allowed. 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 The patient wishes to still have the EEG. He also asks again, about bevacizumab this time in the context that perhaps his sensory changes areperhaps due to the cerebral edema as mentioned by Dr. Sutton. The current MRI shows certainly edema, whereas the MRI from July [address] Sutton anselmo also sent me a message indicating that perhaps MAMI would be an option. I review this with Mr. Rodriguez, and it is possible that the edema has developed/worsen as a result of the radiation treatments. He tells me that Dr. Sutton pointed out that the edema has developed after he had radiation. As noted before to the patient, MAMI has bee an option to consider, however, as I mentioned before, because the tumor although minimally decreased in size, I feel that I could not justify the use of this agent, neither to justify to try to address the symptom of burning sensation as above mention if those were to be ictal events, because the potential side effects and complications from bevacizumab are several which some of them could be deleterious to his health, and even could cause significant harm. Once again, I discussed with the patient the potential benefits and side effects of this medication, and although I am not against using it, I feel that at this time, I do not have good justification to initiate this medication for him at present, but guard sergeant be considered The patient expressed interest on going on this agent. I discussed again with the patient the goals of MAMI if he goes on it, reviewed the literature ad the use for other tumors, either to improve tumor burden or edema form condition like radio necrosis. I discussed the rate of success for either use. I have provided Mr. Rodriguez with literature and also scientific references for his review, as Mr. Nettles, is a scientism himself and would like to review some scientific literature. At this point I would like for mr. Rodriguez to review the information I previewed to him, and to then let me know whether he rivas hs to proceed with MAMI. I told him that there is no urgency to start. 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 MAMI, as anti anti angiogenic agentcan achieve improvement of the cerebral edema, and the patient's symptoms as well hopefully the dose of the steroids can be decreased and or preferably and optimally, to go off them. I discussed with the patient the goals of treatments as above mentioned, but also the potential side effects which among many, include but not limited to hemorrhage, that can occur, in any organ or parts of the body, including the brain, thromboembolism that can occur any part of the body or systems or organs including the brain, as well gut perforation, or perforation of the GI tract, renal failure in the form of nephrotic syndrome, hypertension, or even allergies, among many other potential side effects. Those potential side effects, although not common, can cause a significant neurological, or organ system compromise, including . The regimen I recommend as already published by Cheyenne et al., is 7.5 mg every 3 weeks for a total of 4 infusions. MRI of the brain with and without contrast is done 3 weeks after the 2nd infusion and then if there is radiological stability/improvement as well clinical improvement then, complete the other 2 infusion and then do an MRI of the brain with and without contrast 3 weeks after the 4th infusion as a baseline and then continue clinical and imaging surveillance with MRI's at around every2 months for at least 6 months and then space them out accordingly (Nicolas Crawley M.D et al. Randomized Double-Blind Placebo-Controlled Trial of Bevacizumab Therapy for Radiation Necrosis of the Ce ntral Nervous System. International Journal of Radiation Oncology Biology Physics Volume 79, Issue 5, 12 August 2010, Pages 5248-5815). MAMI can be used again if there is recurrent edema/symptoms from radio necrosis. Regarding precautions for MAMI and taking into account some of the potential side effects, includingpotential for thromboembolism, and in the context that the patient has CAD, S/p coronary artery stent, already for a few years ago, Mr. Ontiveros will contact his scada technician Dr. Parks, for in pout and whether there could be a contraindication, that is, absolute. He also has only one functioning, kidney. He has contacted his chinese herbalist, and he says that his chinese herbalist has given hm advice regarding that but has no absolute contraindication. The options are: -Continue observation with another MRI in around 6 months' time. -Use steroids, and stop Trental and Vit E. -Initiate MAMI, and stop Trental and Vit E. The patient will think about and will let me know. Regarding epilepsy work up, I told him that his epilepsy physician has agreed to prolonged EEG, andDr. Catarino Camacho will order ambulatory EEG. The patient wishes to proceed with this test as well. PLAN: 1-Continue lacosamide (Vimpat) at 200 mg BID for now. 2-Continue Keppra 750 mg BID 3-Rescue medications for breakthrough seizures using either midazolam nasal spray, within 24 hours,and clonazepam sublingual, but not to use it on the same day as midazolam. I discussed with the patient the potential benefits and side effects of this medications and he knows when and how to use them. 4-Seizure precautions as discussed above, as I recommended for him not to drive a car or any motorized vehicle. 5-Driving test with Rehab - simulation center. Wishes to go to the [facility]. 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 The patient is to let me know of his decision whether he wants to go an MAMI. If so I will inform Dr. Sutton. 7-Follow with his primary physician Dr. Whittington. 8-Levetiracetam and lacosamide levels. Not need to do them as he has been changing LEV dose, we yaakov them once he is on steady dose. 9-Order for ambulatory EEG done. 10-Return to neuro-oncology clinic, [facility], after the ambulatory EEG's within 1-2 weeks and VISIT IN PERSON, If possible. At the end, Mr. Rodriguez and his Damaris verbalized understanding, and agreement with above recommendations and had no further questions or concerns for the moment. I encourage him to call me at [facility] if he has any questions about the above plan. I spent 93 minutes in the visit, with more than 50% of the total [id number] time of the visit in counseling / coordination of care. Yancy Centeno MD Staff Neuro-Oncologist [facility] CC: Dr. Trev Sutton, Neurosurgery, [facility] Joe Santos MD, Nephrology Claudio Parks MD [address], [address] [place] [address] PHONE: PCP Breanne Whittington MD PCP - General Family Practice 12/17/2020 [address] [facility] [id number] ; documented in [facility] NoteHNO ID: [id number] Author: Marlene Esposito, OT/L Service: ? Author Type: Occupational Therapist Type: Progress Notes Filed: 02/10/2022 8:50 AM Note Text: Episode Visit Count: 1 Start of Care Date: 02/07/22 Onset Date: 01/06/21 (had several focal seizures and ended up in hospital with ongoing inconsistent focal seizures which was 2 days after this therapist had seen him for same assessment; various health issues related to this followed while seizure medications adjusted 08/02) Patient Identified by Name and Date of : Yes REHABILITATION AND SPORTS THERAPY OCCUPATIONAL THERAPY INSTRUMENTAL ADL AND COMMUNITY MOBILITY EVALUATION SUBJECTIVE: Watson Rodriguez is a 61 year old male seen today for OT functional community mobility assessment which he was seen previously for on 01/04/21 by this therapist. He indicated that he only briefly drove after that assessment as worked a full day and then drove with his to [place] to visit family after which he had several focal seizures followed by various medical follow up. He shared that his neurosurgeon very recently indicated that he feels his symptoms including the parathesias he is experiencing his his RLE could be result of brain edema that has continued. A change in treatment is being considered to try and decrease the brain edema. He verbalized that he is feeling good overall in general and is anxious to return to being able to drive again. 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 Home Type: Multi-Level Transportation: SUV;Travels as a passenger (He has not driven his personal vehicle since December,) Patient Goals: to return to driving if able to do so safely Intake Information: Prescription present Previous Treatment: Physical Therapy Falls Interview: No positive findings with falls interview Relevant History Past Relevant Medical Conditions: Seizures;Cardiac (history of meningioma and gamma knife radiation, RLE weakness) Past Relevant Surgical Conditions: Cardiac (L knee surgery to repair meniscus 2017) Cardiac Comments: [place] and heart stent 2012 Highest Level of Education: Bachelors Preferred Language: Togolese Right or Left Handed: Right 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: See Comment 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[employer] Culture Communication Recreation / Current Exercise: has daily PT program he completes consistently Hobbies / Interests: family, farming, working out, sabianist Home Environment Patient Lives With: Spouse Assistance Available: maritime engineer Home Type: Multi-Level Transportation: SUV;Travels as a passenger (He has not driven his personal vehicle since December,) Activities of Daily Living: Independent Instrumental Activities of Daily Living: Independent and with completing most of the home management tasks while he is responsible for outside work, his medications, finances Driving History: 44 years State: [place] License/Permit #: [id number] Expires: 04/05/29 Restrictions: corrective lenses 5 Yr. Violation HX: none 5 Yr. MVA HX: none Handicap Parking Placard: no 1. Watson Rodriguez self report indicates an awareness of: Spasms, Tremors, or Involuntary movements 2. Watson Rodriguez expressed confidence regarding driving in general while expects shorter trips more tolerable. 3. Watson Rodriguez expressed concerns regarding driving on long trips as feels endurance issues. OBJECTIVE MEASURES WITH LEVEL OF FUNCTION: SENSORIMOTOR ASSESSMENT: Hand dominance: Right Level of Function Relevant to I ADL, Community Mobility, and Driving: Right UE: Sufficient Left UE: Sufficient Workplace Trainer And Assessor: Sufficient Right LE: Sufficient while does have some stiffness, slight decrease in coordination at times distally Left LE: Sufficient Sitting Balance: Sufficient Head / Neck: Sufficient Ambulation: Sufficient Transfers: Sufficient Loading of Device: NA ASSESSMENT OF SENSORIMOTOR FUNCTION: Compatible with Driving VISION SCREENING: Vision Vision Deficits: Wears corrective lenses Corrective lenses: new glasses while recent formal eye exam Corrective Lenses: Wears glasses / contact lenses for driving Distant Acuity: Binocular: 20 / 20 Nighttime Glare: Right: 20 / 20 Left: 20 / 30 Color Perception: pass Depth Perception: Pass Contrast Sensitivity: WFL Peripheral Vision: Within legal limits for driving Right Eye: Acknowledged all stimuli. Left Eye: Acknowledged all stimuli. Pursuits: WNL Saccades: WNL Convergence: WNL Nystagmus: Not Apparent Diplopia: No complaints Strabismus: No OU Cataracts: No OU Glaucoma: No. OU Other Eye Conditions / Diseases Reported: none ASSESSMENT OF VISUAL FU (more content not included)...[facility] 02-07-2022 History of Present illness Narrative* Marlene Esposito, OT/Har[place] - 02/07/2022 4:06 PM EDT Episode Visit Count: 1 Start of Care Date: 02/07/22 Onset Date: 01/06/21 (had several focal seizures and ended up in hospital with ongoing inconsistentfocal seizures which was 2 days after this therapist had seen him for same assessment; various health issues related to this followed while seizure medications adjusted 08/02) Patient Identified by Name and Date of : Yes REHABILITATION AND SPORTS THERAPY OCCUPATIONAL THERAPY INSTRUMENTAL ADL AND COMMUNITY MOBILITY EVALUATION SUBJECTIVE: Watson Rodriguez is a 61 year old male seen today for OT functional community mobility assessment which he was seen previously for on 01/04/21 by this therapist. He indicated that he only briefly drove after that assessment as worked a full day and then drove with his to [place] to visit family after which he had several focal seizures followed by various medical follow up. He shared that his neurosurgeon very recently indicated that he feels his symptoms including the parathesias he is experiencing his his RLE could be result of brain edema that has continued. A change in treatment is being considered to try and decrease the brain edema. He verbalized that he is feeling good overall in general and is anxious to return to being able to drive again. 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 Home Type: Multi-Level Transportation: SUV;Travels as a passenger (He has not driven his personal vehicle since December,) Patient Goals: to return to driving if able to do so safely Intake Information: Prescription present Previous Treatment: Physical Therapy Falls Interview: No positive findings with falls interview Relevant History Past Relevant Medical Conditions: Seizures;Cardiac (history of meningioma and gamma knife radiation, RLE weakness) Past Relevant Surgical Conditions: Cardiac (L knee surgery to repair meniscus 2016) Cardiac Comments: [place] and heart stent 2012 Highest Level of Education: Bachelors Preferred Language: Togolese Right or Left Handed: Right 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: See Comment 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[employer] Culture Communication Recreation / Current Exercise: has daily PT program he completes consistently Hobbies / Interests: family, farming, working out, sabianist Home Environment Patient Lives With: Spouse 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 Violation HX: none 5 Yr. MVA HX: none Handicap Parking Placard: no 1. Watson Rodriguez self report indicates an awareness of: Spasms, Tremors, or Involuntary movements 2. Watson Rodriguez expressed confidence regarding driving in general while expects shorter trips more tolerable. 3. Watson Rodriguez expressed concerns regarding driving on long trips as feels endurance issues. OBJECTIVE MEASURES WITH LEVEL OF FUNCTION: SENSORIMOTOR ASSESSMENT: Hand dominance: Right Level of Function Relevant to I ADL, Community Mobility, and Driving: Right UE: Sufficient Left UE: Sufficient Workplace Trainer And Assessor: Sufficient Right LE: Sufficient while does have some stiffness, slight decrease in coordination at times distally Left LE: Sufficient Sitting Balance: Sufficient Head / Neck: Sufficient Ambulation: Sufficient Transfers: Sufficient Loading of Device: NA ASSESSMENT OF SENSORIMOTOR FUNCTION: Compatible with Driving VISION SCREENING: Vision Vision Deficits: Wears corrective lenses Corrective lenses: new glasses while recent formal eye exam Corrective Lenses: Wears glasses / contact lenses for driving Distant Acuity: Binocular: 20 / 20 Nighttime Glare: Right: 20 / 20 Left: 20 / 30 Color Perception: pass Depth Perception: Pass Contrast Sensitivity: WFL Peripheral Vision: Within legal limits for driving Right Eye: Acknowledged all stimuli. Left Eye: Acknowledged all stimuli. Pursuits: WNL Saccades: WNL Convergence: WNL Nystagmus: Not Apparent Diplopia: No complaints Strabismus: No OU Cataracts: No OU Glaucoma: No. OU Other Eye Conditions / Diseases Reported: none ASSESSMENT OF VISUAL FUNCTION: Compatible with Driving COGNITIVE / PERCEPTUAL ASSESSMENT: SHORT BLESSED TEST Short Blessed Test 1. What Year Is It Now?: Correct 2. What Month Is It Now?: Correct 3. What Time is it? (WIthin 1 hour): Correct 4. Count Aloud Backwards 20 to 1 (Errors): 0 5. Months of the Year in Reverse Order (Errors): 0 6. Memory Phrase (Errors) : 0 Short Blessed Final Score: 0 Short Blessed Test Scorin-8; Normal to minimal impairment 9-19; Moderate impairment 20-28; Severe impairment [email or web address] Visual Scanning/Attention: Melstone Making Part B (sec): 52 sec 50th percentile norm for age group: 60-69; Part A: 48 seconds, Part B: 119 seconds Useful Field of View (UFOV) Watson Rodriguez's performance on the UFOV test places him in: Category 2, suggesting Low Risk. Watson Rosemary Yanicisco's score of 16.7 milliseconds on Part I suggests: normal Central Vision or Processing Speed. Watson Rosemary Yanicisco's score of 163.3 milliseconds on Part II suggests: Some difficulty with Divided Attention. Watson Rodriguez's score of 163.3 milliseconds on Part III suggests: normal Selective Attention.. The UFOV test has been statistically correlated to driving risk in a number of studies. Drivers with a 40% reduction in useful field of view (Category 4 and 5) were 2/2 times likely to crash in 3 year follow up studies. 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 AND ON VARIOUS ROADS INCLUDING PARKING LOT, RESIDENTIAL, [address], INTERSTATE HIGHWAYWITH NO CONCERNS OBSERVED AND NO SUGGESTIONS FOR IMPROVEMENTS REQUIRED.75 Education: Education Learning Preferences: Explanation Barriers: None Learning/educational needs: Safety;Health promotion Education Provided: Yes, see treatment interventions for education provided Education Provided To: Patient Education Mode/Type: Explanation/Discussion Response to Education/Teach Back: States/Identifies TREATMENT: Evaluation: completed various standardized assessments as part of this evaluation Self-Fci Management: 1: refer to details in this report 2: provided education and support to he and his Skilled Intervention: Skilled judgment in the selection of proper modification for activity of daily living/home management based on clinical presentation, deficits, and needs. Educated the patient regarding recommendations and provided written instruction to facilitate compliance. Reviewed patient specific diagnosis in relation to activities of daily living/home management. Activity progression based on professional judgement. PLAN OF CARE: SUMMARY AND RECOMMENDATIONS *The information in this report indicates the ability of the mobile lounge driver or operator to operate a motor vehicle on this date only. Due to the complex nature of the safe operation of a motor vehicle, and considering the demands of integrating changing environmental conditions, and visual, cognitive, and physical skills, successful completion of this program is not a guarantee of safe driving in the future. ASSESSMENT OF INSTRUMENTAL ADL AND COMMUNITY MOBILITY: Watson Rodriguez presents with the diagnosisof seizure secondary to history of R brain meningioma/edema. He presents with impairments of RLE decreased distal coordination that is inconsistent, and has not driven in 13 months due to health issues. RECOMMENDATIONS: ADL/IADL Recommendations: ongoing independence with all Driving Recommendations: RETURN TO INDEPENDENT DRIVING WHILE FOLLOWING THESE RESTRICTIONS: LIMIT LONG DISTANCE DRIVING WHILE TAKING FREQUENT BREAKS (EVERY 1- 2 HOURS) AND SHOULD SHARE DRIVING IF LONGER TRIPS; DO NOT DRIVE WHEN NOT FEELING WELL; AVOID DRIVING IF SEVERE WEATHER; TO CONTINUE TO MONITOR HIS OVERALL LEVEL OF FUNCTION INCLUDING WITH DRIVING Planned Interventions, Frequency, and Duration: Current Frequency: 1 visit Duration: 1 visit Total Number of Visits Planned: 1 Patient demonstrates good understanding of plan of care and treatment. The above results and recommendations were discussed and agreed upon by patient/family. Billing: Total Treatment Time Minutes (timed/untimed) 135 minutes Evaluation - Moderate Complexity (81944) Self Care / Home Management (87072): 1:1 time: 75 minutes (5 units: 68-82 mins) Total time: 135 minutes Marlene Esposito OT/Harvey, CDRS, CDI Certified Vice President Sales Transportation Planning Engineer [facility] History of Present illness Narrative* Florencia Garrett RN - 02/03/2022 4:32 PM EDT PA completed for Nayzilam 5mg/0.1ml spray PA [id number] through 02/03/23 Florencia Garrett RN, BSN Edi Coordinator [facility] documented in [facility] History of Present illness Narrative* Yancy Centeno MD - 02/01/2022 9:34 AM EDT Images from the original note were not included. [facility] Follow up Virtual Consultation Referred by Dr. Trev Sutton [address] [facility] [id number] We had a virtual visit conducted via video. I received consent from the patient to perform the visit using this platform. The patient is accompanied by his Damaris who is a nurse. 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 Work up for lumbar spine cause non conclusive. He had an episode of seizureand MRI brain showed left parasaggital dural based lesion 4.9 x3.5x4.2 cm with small nodule extending to right side. His right leg still numb and weakness. High step gait to avoid dragging his right lower extremity. He had GK-SRS to the tumor (25Gy/5fx) from 08/16/2020-08/20/2020. IMPORTANT POINTS OF THE PATIENT'S HISTORY AND PROGRESSION: MENINGIOMA DIAGNOSIS: Mr. Wilder presented back on April 14, 2020, with a complaint of right leg numbness and weakness, and foot drop, this happened after the day before doing heavy lifting, by caring an object waitingaround 20 pounds, and shoveling snow. He was evaluated, initially back in April 2020 he had images of the lumbosacral region which were not revealing, but he was diagnosed with a presumptive radiculopathy at the level of 5, for which he underwent an EMG that was unrevealing also, and he went on to receive an L5 transforaminal injection without any help. He then was evaluated, and there is cerebrovascular neurology clinic, on July 19, 2020 as he was not getting better. At that time, because the event happened acutely, the working diagnosis of a stroke was given. Brain MR images performed on July 27, 2020 revealed rather a large parasagittal mass arising from the falx, involving both sides, more the left than the right, centered in the frontal regions and parietal lobe levels. Radiologically, this tumor was most compatible, with a meningioma. 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 This finding, correlated with the patient's presentation, and the weakness and paresthesias, may have been due to an acute event of a seizure back on April 14, 2020, however the leg weakness, also as a result of the tumor. The patient was referred to see Dr. Sutton, from neurosurgery at the [facility]. Dr. Sutton recommended gamma knife which he received, between August 16 through August 20, 2020. History of Present Illness: Watson Rodriguez is a 61 year old male investigated for right leg numbness and weakness (couldn't stand on it) April 2020. Work up for lumbar spine cause non conclusive. He had an episode of seizureand MRI brain showed left parasaggital dural based lesion 4.9 x3.5x4.2 cm with small nodule extending to right side. His right leg still numb and weakness. High step gait to avoid dragging his right lower extremity. He had GK-SRS to the tumor (25Gy/5fx) from 08/16/2020-08/20/2020. -His main concern is tinnitus, that is very bothersome and is affecting his quality of life quite significantly. 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 Adjacent T2/FLAIR hyperintense vasogenic edema/posttreatment changes in the left parietal centrum semiovale and lopez radiata are unchanged. Follow up with Dr. Sutton Feb 06, 2022 2-SEIZURES: last time Seizures February 24, 2021. He has been followed by neurologist Dr. Gris Neal. Semiology: Right leg: clonic activity - NO LOC. Right leg: sensory symptoms. Recent events for AED: -Started Levetiracetam or Keppra (LEV) October 20, 2021: 1000 Mg BID October 29, 2021: 1250 mg BID. November 01, 2021: as he felt that his right leg was heavier he dropped the dose to 750 mg BID and has not have seizures. Last recent level of LEV October 04, 2021 at 8.1 (range 12-46) level 38.3 was on 1000 mg BID November 10 had a clonic seizure, right leg, used Midazolam nasal spray, no help, then use clonazepam wafer, and stopped. NOTE: says the midazolam nasal spray had , hence it may have not been effective. Seizure improved as he has had to use once rescue medication since I saw him last. PLAN: LEV and VIMPAT blood levels on Jan 26, 2022 (the day of MRI) Latest Reference Range & Units 12/24/20 07:59 10/04/21 08:39 Levetiracetam 12.0 - 46.0 ug/mL 38.3 8.1 (L) (L): Data is abnormally low Latest Reference Range & Units 10/04/21 08:39 Lacosamide 2.2 - 19.8 ug/mL 5.2 INTERIM EVENTS 02/01/22 After he took Tylenol, on Sat Sep 17, at 4 PM, and almost right after that he had a he had a focal seizure in the right foot. This time was painful. This may be coincidence, but the patient reports this also happening with ibuprofen. A trigger for seizures is environmental, exercise, he says. 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 He will ask Dr. Sutton about staying on these drugs or not. CONSIDERATION FOR BEVACIZUMAB TO BE MADE WHEN APPROPRIATE. FOR NOW THE PATIENT IS IMPROVING. INCLUDING HIS BRAIN MR 01/26/22, SHOWS MINIMALLY IMPROVED MASS. I HAVE DISCUSSED THE POTENTIAL USE OF THIS AGENT, THE TIMING TO USE IT, THE GOALS, POTENTIAL BENEFITS AND SIDE EFFECTS. THE USE OF THIS AGENT WILL DEPEND ON MULTIPLE FACTORS, PARTICULARLY CLINICAL DETERIORATION THAT IS DEEMED TO BE FROM RADIONECROSIS. ALSO THERE USE OF OTHER SYSTEMIC AGENTS IF THERE IS PROGRESSIVE TUMOR. Note: he asked Me to refill his tentral and I did. 4-TINNITUS - Still present -patient has been followed up by Dr Ortiz Neuro-Electrical Project Manager. 5-DRIVING: On 08/22/21 had an event of a convulsion November 10: right leg tonic clinic seizure. Most recent seizure, motor, 01/19/22. After discussing the pros and cons of going back to driving. I reiterated that my recommendation isfor him to wait at least 6 months from the time he had the convulsion. Hence he will have his brain MR in Jan 2022 and then re-assess. He wishes to have a simulated driving tests in January 2022 after the MRI PLAN: Order the driving tests to be booked for the end of Jan. If he has not had seizures with LOC, he could potentially go back to driving 6 months from the convulsion which was in August 22, 2021. He is to observe the following: If You Have Had a Seizure Ask friends and family members to learn CPR. Also, tell them to do the following if you have a seizure: Clear the area to prevent injury. Position you on a flat, carpeted surface, if possible. Don t try to restrain you. Don t put anything in your mouth. Turn you onto your side if you start to vomit. Keep track of the date and time the seizure started, how long it lasted, whether or not you lost consciousness, a description of your body movements, what provoked the seizure (if known), and any injuries you suffered. Stay with you until you regain consciousness. Activities Avoid hazardous activities. A seizure under these conditions could lead to a fatal accident or injury to bystander. Do not use sharp moving tools. Do not swim or bathe alone, without a responsible adult who is knowledgeable about your seizures nearby. Do not climb to high places. Avoid heights. Wear a bicycle helmet when you ride a bicycle. NO DRIVING: You must be seizure free for at least 6 months in order to drive as an [place] resident. Each state has individual driving regulations. People with seizures are required to report their condition to their state's [place] of Motor Vehicles (BMV). However, states differ regarding the identity of the person required to report. Some states require doctors to report patients with epilepsy. Other states require patients to sign a simple form at the time of license application or renewal, declaring they will notify the BMV of changes in their health status or driving ability. When a person with seizures wishes to drive for the first time, he or she will need to fill out an application. When someone who already holds a mobile lounge driver or operator's license is newly diagnosed with seizures, that person is responsible for notifying the BMV. Individuals with uncontrolled seizures have a higher risk of accidents if they drive. That is why doctors advise patients with seizures that they should not drive until their seizures are under control. If a well-controlled patient has a seizure after the doctor makes a medicine change, the patientmay or may not be able to continue driving Seizures are unpredictable, and even a small seizure at the wrong time can lead to an injury or . The best solution, if possible, is to get the seizures under control. The best way to do this isto work together with your doctor to get on the right treatment and to honestly discuss your seizures with your health care provider. This information is subject to change. Please contact your state's BMV office for the most current information. A mobile lounge driver or operator must submit a satisfactory medical statement from their physician/provider and/or submit passing examination scores for a partial or complete mobile lounge driver or operator license examination to the [place]. When to Seek Medical Attention Tell your family members or friends to call 911 right away if you have: Loss of consciousness--you do not regain consciousness soon after seizure activity Shortness of breath or stopped breathing. Seizure that lasts more than 2 minutes. Seizure that is severe (choking, difficulty breathing, bluish color skin) Two or more seizures in a row. Seizure accompanied by fever or rash Injury following seizure You are or diabetic Otherwise, have them call your doctor immediately if you have: Seizures that are getting longer and worse. Seizures that are different from those you ve had in the past. Change in seizure frequency. 6-RIGHT LEG EDEMA. He is using compression stockings and seems that he is better. Etiology unclear, perhaps local dysautonomia, form the qamar tumor, or from less mobility but seeing his PCP to exclude vascualr issues, but has had vascular studies, reportedly unremarkable. PLAN: Follow with his PCP. 7-OBSTRUCTIVE SLEEP APNEA: Using his CPAP and sleeping well. 8-RIGHT HEMIPARESIS/PHUONG'S PARALYSIS. Seizure frequency improved. 9- POSSIBLE SPASTICITY OF RIGHT LOWER EXTREMITY. DISCUSSION AND PLAN: Although I did not examine the patient, I wonder whether he has a level of the spasticity that could be alleviated, by Botox injections. FOR NOW TO CONTINUE WATCHING. 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 July 26, [address] Colton Mason to obtain input regarding the stenosis of the superior sagittal sinus from the tumor, in the context, that the MRV shows good collaterals anterior and posteriorly, andin the context that the patient has worsening paresthesias in his right lower extremity, upon physical activity.. The question is whether the stenosis, would be symptomatic, and also whether the edema around the tumor will be also from venous congestion. Dr. Colton Mason felt, that, also per his review the images, as well, that he would be unlikely for the stenosis of the surgical site the sinus to be symptomatic, and that the edema, is probably not related to the venous stenoses as the edema will be more prominent by now and it would show progressive venous congestion, and typically this will show also anteriorly. In summary, Dr. Colton Mason felt that the either occluded or stenosed SSS, is not symptomatic atthis time, and no need for any therapeutic or other diagnostic interventions. I also asked for his input regarding that the patient is on dual antiplatelets, that is, aspirin and Plavix, and that he has been, on both medications for 2 years per his own decision for the past 2 years, even though his scada technician told him, that he stop Plavix 2 years ago, and whether he ought to take both antiplatelets, because of his superior sagittal sinus occlusion or stenosis. Dr. Pinedo felt, that the patient, requires no therapeutic interventions, neither other diagnostic interventions, and that he would not recommend him to be on 2 antiplatelets, or not even on 1, if he did not need to be on antiplatelets for other reasons. However, the decision for the patient to continue on both antiplatelets, will be a decision to be made by his scada technician. Acknowledging, that thepatient was told by his scada technician to stop dual antiplatelet therapy 3 years ago and to continue only on aspirin. I called Mr. Rodriguez and reviewed the above with him. He tells me, that he saw his scada technician andthat he was told, that he does not need to be on dual antiplatelets and that he could go of his Plavix. He says that his scada technician is going to do a stress test in the future. 11: RIGHT LOWER EXTREMITY PARESTHESIAS. DISCUSSION He says that he has this almost persistent, sensation of tingling and needles sensation in his right foot, which it gets more pronounced when he stops on his foot. It is rather constant and is not paroxsymal in nature. He is wondering whether there is a pathology in his foot/leg. I told him that told him that this symptom is likely from the tumor, and it would be unlikely that he has a lumbosacral pathology to a peripheral process to explain this. He had a lumbar MRI in May 2020, and to my eye I see no significant pathology, and the report also shows no significant neuro foramina narrowing orspinal canal stenosis, other than some mild narrowing of the neural foramina form spurring at L4-5. THIS HAS IMPROVED. 12: BURNING SENSATION OF RIGHT LOWER EXTREMITY. HOWEVER HE SAYS THAT SINCE HE STARTED LACOSAMIDE, HE HAS HAD A BURNING SENSATION THAT COMES IN PAROXYSMAL AND STEREOTYPICAL FASHION, AND IS QUITE BOTHERSOME. The event can last 1-2 minutes, and can dissipate if he takes clonazepam, but it can take up to 30 minutes to go away. The patient provided to em with a log of symptom binh detailed fashion which I reviewed, and has been scanned into his chart. INTERIM EVENTS 02/01/22 Has yanira seen by podiatry Dr. Augustin Carrillo -Had EMG no abnormality -01/26/22 MRI Rt ankle also normal. -Dr. Neal neurology, has seen patient last year, recommended to do a nerve biopsy to exclude small fiver neuropathy. Mr. Wilder declined this evaluation. 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 PLAN: My own empiric practice. In order to decrease the possibility of steroid edema for flying, empirically recommended for the patient to take dexamethasone 2 mg daily, the day prior to the flight, the day of the flight, and theday after the flight. I told him, that he suffered an empiric approach but this is my practice. 13- DIAGNOSED WITH COVID-19 ON Sunday. Achy of muscle, and sore throat, last week and tested POS for COVID. He is getting better, no developing new symptoms. He contacted his PCP and recommended antivirals, but says that Dr. Acuna noted that there are interactions with other medications. The patient opted not to go on any antivirals. I advised him to keep Dr. Acuna appraised of his symptoms. HE HAS BEEN OFF DEXAMETHASONE FOR A WHILE. Therapy Status Data Form Past Medical History: PAST MEDICAL HISTORY Diagnosis Date Acute myocardial infarction of lateral wall (HCC) 2012 s/p LAD stent Benign neoplasm of colon Benign neoplasm of meninges (HCC) 08/02/2020 Hyperlipidemia Seizure (HCC) focal motor Past Surgical History: PAST SURGICAL HISTORY Procedure Laterality Date COLONOSCOPY FLX DX W/COLLJ SPEC WHEN PFRMD 10/29/2009 Colonoscopy HEMORRHOID;BAND LIGAT, SNGL/MUL 12/2016 PAST SURGICAL HISTORY OF Left 04/2017 left knee arthroscopy - meniscus PAST SURGICAL HISTORY OF 01/2013 PTCA x 1 - LAD Family History: FAMILY HISTORY Problem Relation Age of Onset Colon Cancer Mother ascending large intestine removed 2008 at 80 years old Colon Cancer Maternal Grandmother portion lower colon removed 60 years old, colostomy Social History Tobacco Use Smoking status: Never Smokeless tobacco: Never Vaping Use Vaping Use: Never used Substance Use Topics Alcohol use: No Drug use: No Allergies: Atorvastatin Current Outpatient Medications Medication Sig pentoxifylline ER (TRENTAL) 400 mg CR tablet Take 1 tablet by mouth three times daily with meals. YES Vitamin E, dl, acetate, (VITAMIN E) 400 unit capsule Take 1 capsule by mouth three times daily. YES lacosamide (VIMPAT) 50 mg tab Take 200 mg BID (give the 50 mg tabs) levETIRAcetam (KEPPRA) 750 mg tablet Take 1 tablet by mouth twice daily. midazolam (NAYZILAM) 5 mg/spray (0.1 mL) nasal spray Use 1 spray in one nostril as needed for seizures. May repeat dose in alternate nostril after 10 minutes based on response and tolerability. Only take for seizures lasting more than 3 minutes or more than 3 seizures in an hour sildenafil (VIAGRA) 50 mg tablet Take 1 tablet by mouth as needed. CPAP Initiate Auto PAP @ 5-20 cm of water with humidification. Mask (per patient preference) optional chin strap (if indicated) , filters, tubing, humidifier and lifetime supplies. rosuvastatin (CRESTOR) 40 mg tablet Take 40 mg by mouth. YES Multivitamin capsule Take 1 capsule by mouth once daily. YES clopidogrel (PLAVIX) 75 mg tablet Take 75 mg by mouth once daily. YES aspirin(ADULT LOW DOSE ASPIRIN 81 MG TAB, DELAYED RELEASE) Take one(1) tablet daily. YES No current facility-administered medications for this visit. Review of systems: SEE ABOVE Constitutional: No recent fever or weight loss. Eyes: No history of glaucoma or cataracts. ENMT: No recent ear infection, nasal congestion, mouth sores or sore throat. See HPI CV: No history of chest pain, palpitations Right leg swelling, SEE HPI Respiratory: No history of SOB, asthma or recent cough. Gastrointestinal: No history of nausea, vomiting, dysphagia or abdominal pain. Genitourinary: No history of hematuria or dysuria. Musculoskeletal: No complaint of arthritis Has Right leg weakness, see HPI. Psychiatric: No history of hallucinations He feels somewhat anxious and also down emotionally as his neurological disability is affecting hisQOL. ROS Neurological: SEE HPI No complaint of headache. Complaint of tinnitus, bilateral . No complaint of decreased hearing. No complaint of diplopia. No complaints of decreased visual acuity. Complaint of RT arm/leg numbness. Problem with RT limb coordination. No complaint of syncope Complaint of seizures, see HPI No loss of consciousness. Objective No physical Exam was performed, as this was the virtual visit, however on observation the patient appeared in no distress, he was eloquent, no language dysfunction that I could elicit, no cranial nerve abnormalities are grossly on observation. Karnofsky performance status: 70 - Cares for self, unable to carry on normal activity or to do work. ECOG performance status: 1 - Restricted in physically strenuous activity but ambulatory and able tocarry out work of a light or sedentary nature, e.g., light house work or office work. PHQ 2 and 9 Total Scores 01/30/2022 PHQ-2 Score 1 PHQ-9 Score 3 Labs: CBC Latest Ref Rng & Units 06/24/2021 07/04/2021 08/31/2021 WBC 3.70 - 11.00 k/uL 3.40(L) 4.45 6.76 RBC 4.20 - 6.00 m/uL 4.79 4.69 4.83 HEMOGLOBIN 13.0 - 17.0 g/dL 15.2 14.7 15.2 HEMATOCRIT 39.0 - 51.0 % 43.2 42.4 44.3 MCV 80.0 - 100.0 fL 90.2 90.4 91.7 MCH 26.0 - 34.0 pg 31.7 31.3 31.5 MCHC 30.5 - 36.0 g/dL 35.2 34.7 34.3 RDW-CV 11.5 - 15.0 % 11.8 11.7 11.6 PLATELETS 150 - 400 k/uL 166 170 221 MPV 9.0 - 12.7 fL 8.7(L) 8.3(L) 8.2(L) BASO% % 0.3 0.2 0.3 ABS NEUT (ANC) 1.45 - 7.50 k/uL 2.06 3.02 5.04 ABS LYMPH 1.00 - 4.00 k/uL 0.87(L) 0.84(L) 0.96(L) ABS MONO <0.87 k/uL 0.43 0.55 0.68 ABS EOSIN <0.46 k/uL 0.03 <0.03 <0.03 ABS BASO <0.11 k/uL <0.03 <0.03 <0.03 NRBC /100 WBC - - 0.0 DIFF TYPE - Auto Diff Auto Diff - CMP Latest Ref Rng & Units 12/24/2020 01/08/2021 06/24/2021 SODIUM 136 - 144 mmol/L 137 139 134(L) POTASSIUM 3.7 - 5.1 mmol/L 3.9 4.0 4.1 CHLORIDE 97 - 105 mmol/L 104 102 101 CO2 22 - 30 mmol/L 24 26 27 GLUCOSE 74 - 99 mg/dL 95 93 89 BUN 9 - 24 mg/dL 15 14 12 CREATININE 0.73 - 1.22 mg/dL 1.05 1.09 1.10 EGFR-ALL OTHER RACES . >60 >60 >60 EGFR- - >60 >60 >60 PROTEIN, TOTAL 6.3 - 8.0 g/dL 6.8 6.7 6.3 ALBUMIN 3.9 - 4.9 g/dL 4.5 4.6 4.5 CALCIUM, TOTAL 8.5 - 10.2 mg/dL 9.6 9.5 9.2 BILIRUBIN, TOTAL 0.2 - 1.3 mg/dL 0.7 0.4 0.6 AST 14 - 40 U/L 20 28 18 ALT 10 - 54 U/L 21 27 21 ALKALINE PHOSPHATASE 38 - 113 U/L 69 71 77 Final Pathology: N/A PATIENT HAS NOT HAD A BIOPSY OF HIS BRAIN TUMOR. Imaging: Results MRI BRAIN WO/W IVCON (Order [id number]) Patient Info Patient Name Sex Watson Rose ([id number]) Male 1960 01/26/2022 12:11 PM - Radiology, O[facility] In Impression IMPRESSION: Minimal decrease in size of the parafalcine meningioma compared to the prior exam. Paper Goods Machine Operator: [email or web address] Transcribe Date/Time: Jan 26 2022 12:02P Dictated by : FREDI CARPENTER MD This examination was interpreted and the report reviewed and electronically signed by: FREDI CARPENTER MD on Jan 26 2022 12:09PM EST Adjacent T2/FLAIR hyperintense vasogenic edema/posttreatment changes in the left parietal centrum semiovale and lopez radiata are unchanged. Local mass effect is again noted and unchanged. No new intracranial enhancing lesions. Assessment & Plan Mr. Watson Rodriguez is a 61 year old male investigated for right leg numbness and weakness (couldn'tstand on it) April 2020. Work up for lumbar spine cause non conclusive. 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 His right leg still numb and weak. High step gait to avoid dragging his right lower extremity. He had GK-SRS to the tumor (25Gy/5fx) from 08/16/2020-08/20/2020. DISCUSSION: The patient tells me, that the symptom that is affecting his quality of life the most is the burning sensation of his right foot/leg, that happens in a paroxysmal and stereotypical fashion. It is important to note that the patient has had paresthesias in the past, he has described them as constant,other times as stiffness, or even edema. The patient has had, ample work-up, for this symptom with a goal to exclude other potential etiologies that may be rather focal and not necessarily secondary to his meningioma located in the parasagittal region, mostly on the parietal lobes left more than the right. The patient's , states, that she believes all this began after he started Vimpat or lacosamide however the patient has been having paresthesias of the right leg since I saw him initially in apr 2021, but he feels, that this sensation of burning is different. The patient also feels, that all this began after the Vimpat initiation. I did look back in the notes, and is hard to tell, whether there is a clear relationship between the initiation of Vimpat and this paresthesias. I told the patientand , that the paroxysmal and stereotypical nature of this symptom, makes it difficult to make a case that is secondary to a systemic side effect from a medication, otherwise he will be having symptoms probably bilaterally, or perhaps even more the right more than the left but is still on both limbs. I mention this, because the patient made a point that if it is unlikely that he has peripheral neuropathy, in view that from neurology recommended a nerve biopsy, and if he commented that if were to have peripheral neuropathy, he should involve both sides of the body. Hence, this rationale from the patient's perspective, it is likely applicable to Vimpat, that it would be very unlikely to give a focal symptom as a side effect. Hence, I told him that I would be reluctant to make anymodifications in his antiepileptics at this time, as he was asking, and his that they would want em to start to wean him off Vimpat and change it to something else, or to increase Keppra dose. I told him, that because of the paroxysmal and stereotypical nature of this symptom, that seizures comes to mind, as I have postulated before, and work-up should be considered. Discussed with the patient, the [place] in terms of elucidating the etiology of this symptom, and he is aware that I contacted his epileptologist, that saw him once, to see whether we could coordinate a video EEG monitoring, but I had not heard back from the doctor. I told the patient, that I want to elucidate whether those are seizures she is to have continuous EEG monitoring, that could occur in the inpatient setting, by him being admitted to the epilepsy monitoring unit. The patient made a point, that if he is outside his usual environment, that he may not have the events, as he would not be having any triggers if he gets admitted to the epilepsy monitoring unit. From that regard, I agree with the patient and I was thinking rather to have him monitored with a ambulatory EEG with the hope, that we can capture 1 of those events, and to see whether they are epileptic or not. There are limitations for this modality of monitoring, in view that this is outpatient, the cables could come off, there could be artifact, from other external stimuli etc. I will order ambulatory EEG, for the maximum time allowed. 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 The patient wishes to have the EEG first, and then reassess. What agent that comes to mind is clonazepam because the patient says, that that really eases the symptoms, quite readily. He also asks again, about bevacizumab and I told him at this time because the tumor although minimally decreased in size, I feel that I could not justify the use of this agent, neither to justify to try to address the symptom of burning sensation as above mention if those were to be ictal events, because the potential side effects and complications from bevacizumab are several which some of them could be deleterious to his health, and even could cause significant harm. Once again, I discussed with the patient the potential benefits and side effects of this medication, and although I am not against using it, I feel that at this time, I do not have good justification to initiate this medication for him at present. He is going to see Dr. Sutton, his neurosurgeon next week, for a follow-up as well. PLAN: 1-Continue on lacosamide (Vimpat) at 200 mg BID for now. 2-Continue Keppra 750 mg BID 3-Rescue medications for breakthrough seizures using either midazolam nasal spray, within 24 hours,and clonazepam sublingual, but not to use it on the same day as midazolam. I discussed with the patient the potential benefits and side effects of this medications and he knows when and how to use them. 4-Seizure precautions as discussed above, as I recommended for him not to drive a car or any motorized vehicle. 5-Driving test with [facility]hab - simulation center. To be done after the qamar MR (booked for Jan 26, 2022). Wishes to go to the [facility]. 6-Follow-up with Dr. Sutton and Dr. 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 8-Follow with Dr. Sutton, for clinical and imaging surveillance for his meningioma. I am certainlyhappy to follow him along with Dr. Sutton. Scheduled appointment with Dr. Sutton Jan 30, 2022. This was not done, so I will pursue to eb done at a later time. 9-Follow with his primary physician Dr. Whittington. 10-Levetiracetam and lacosamide levels on Jan 26, 2022 (order entered). 11-Order for ambulatory EEG done. 12-Return to neuro-oncology clinic, [facility], after the ambulatory EEG's within 1-2 weeks,a and VISIT IN PERSON, If possible. ORDERS Associate Signed Orders Orders Signed This Visit (9) clonazePAM orally disintegrating (KLONOPIN WAFER) 1 mg disintegrating tablet Dissolve 1 tablet under the tongue three times daily as needed (seizures) for up to 30 days., Starting 02/01/2022 Normal, Disp-30 tablet, R-2, Long-term Dx: 1. Meningioma (HCC) 2. Seizure (HCC) 3. Recurrent seizures (HCC) lacosamide (VIMPAT) 100 mg tab Take 200 Mg BID Normal, Disp-360 tablet, R-4, Long-term Dx: 1. Meningioma (HCC) 2. Seizure (HCC) midazolam (NAYZILAM) 5 mg/spray (0.1 mL) nasal spray Use 1 spray in one nostril as needed for seizures. May repeat dose in alternate nostril after 10 minutes based on response and tolerability. Only take for seizures lasting more than 3 minutes or morethan 3 seizures in an hour Normal, Disp-2 Each, R-2, Long-term Dx: 1. Recurrent seizures (HCC) EPIL AMBULATORY EEG Routine EPIL AMBULATORY EEG Routine EPIL AMBULATORY EEG Routine EPIL AMBULATORY EEG Routine EPIL AMBULATORY EEG Routine EPIL EEG ROUTINE Routine At the end, Mr. Rodriguez and his Damaris verbalized understanding, and agreement with above recommendations and had no further questions or concerns for the moment. I encourage him to call me at [facility] if he has any questions about the above plan. I spent 93 minutes in the visit, with more than 50% of the total [id number] time of the visit in counseling / coordination of care. Yancy Centeno MD Staff Neuro-Oncologist [facility] CC: Dr. Trev Sutton, Neurosurgery, [facility] PCP Breanne Whittington MD PCP - General Family Practice 12/17/2020 [address] [facility] [id number] ; documented in this encounterMer[facility]09[facility]19-2022 History of Present illness Narrative* Breanne Whittington MD - 01/30/2022 2:59 PM EDT Patient presents with: Covid Follow Up HPI:This Team Access Model visit is a virtual encounter. It required patient- provider interaction for the medical decision making as documented below. Patient was offered a virtual/telemedicine appointment in lieu of an office visit due to recommendations to reduce patient exposure to COVID-19. Patient is aware of limitations of performing the visit without a face to face visit in the office setting and agrees. Diagnosed with covid test on: Symptoms began: on 01/26. Had fatigue and malaise. Is vaccinated. Tested positive yesterday [facility] a home test. Had noted had weight gain on his home scale. It is now back to his normal weight. Vitals have been good. No swollen ankles. No shortness of breath or orthopnea. No chest pain. Has some sore throat. Mild cough. Mild diarrhea but is better. Advised to call if any weight gain recurs. Overall right now is feeling pretty good. MEDICATIONS: Current Outpatient Medications Medication Sig lacosamide (VIMPAT) 100 mg tab Take 200 Mg BID clonazePAM orally disintegrating (KLONOPIN WAFER) 1 mg disintegrating tablet Dissolve 1 mg under the tongue as needed. levETIRAcetam (KEPPRA) 500 mg tablet Take 1.5 tablets by mouth twice daily. pentoxifylline ER (TRENTAL) 400 mg CR tablet Take 1 tablet by mouth three times daily with meals. sildenafil (VIAGRA) 100 mg tablet Take 1 pill 1 hour prior to sexual activity on empty stomach Vitamin E, dl, acetate, (VITAMIN E) 400 unit capsule Take 1 capsule by mouth three times daily. dexAMETHasone (DECADRON) 2 mg tablet 2 mg the day prior to the flight, the day of the flight and the day after the flight. midazolam (NAYZILAM) 5 mg/spray (0.1 mL) nasal spray Use 1 spray in one nostril as needed for seizures. May repeat dose in alternate nostril after 10 minutes based on response and tolerability. Only take for seizures lasting more than 3 minutes or more than 3 seizures in an hour CPAP Initiate Auto PAP @ 5-20 cm of water with humidification. Mask (per patient preference) optional chin strap (if indicated) , filters, tubing, humidifier and lifetime supplies. rosuvastatin (CRESTOR) 40 mg tablet Take 40 mg by mouth. Multivitamin capsule Take 1 capsule by mouth once daily. aspirin(ADULT LOW DOSE ASPIRIN 81 MG TAB, DELAYED RELEASE) Take one(1) tablet daily. No current facility-administered medications for this visit. ALLERGIES: ALLERGIES Allergen Reactions Atorvastatin Myalgia, Other: See Comments PAST MEDICAL HISTORY Diagnosis Date Acute myocardial infarction of lateral wall (HCC) 2012 s/p LAD stent Benign neoplasm of colon Benign neoplasm of meninges (HCC) 08/02/2020 Hyperlipidemia Seizure (HCC) focal motor PAST SURGICAL HISTORY Procedure Laterality Date COLONOSCOPY FLX DX W/COLLJ SPEC WHEN PFRMD 10/29/2009 Colonoscopy HEMORRHOID;BAND LIGAT, SNGL/MUL 12/2016 PAST SURGICAL HISTORY OF Left 04/2017 left knee arthroscopy - meniscus PAST SURGICAL HISTORY OF 01/2013 PTCA x 1 - LAD FAMILY HISTORY Problem Relation Age of Onset Colon Cancer Mother ascending large intestine removed 2008 at 80 years old Colon Cancer Maternal Grandmother portion lower colon removed 60 years old, colostomy Social History Tobacco Use Smoking status: Never Smokeless tobacco: Never Vaping Use Vaping Use: Never used Substance Use Topics Alcohol use: No Drug use: No Reviewed current medications, allergies, past medical history, surgical history, family history andsocial history today. REVIEW OF SYSTEMS All other reviewed and negative other than HPI. VITALS: There were no vitals taken for this visit. Last 4 Encounter Wt Readings: Date: Wt: 11/29/2021 83.9 kg (185 lb) 11/07/2021 84.8 kg (187 lb) 11/04/2021 84.8 kg (187 lb) 09/14/2021 80.7 kg (178 lb) PHYSICAL EXAMINATION: Patient is alert and oriented during visit. Answers appropriately. Breathing is good. No cough. Speaking in full sentences. ASSESSMENT/PLAN: 1. COVID-19 - ICD9: 079.89, ICD10: U07.1 - discussed covid quarantine rule. - Red flags for re-assessment reviewed with patient in detail. - declines paxlovid. Will call if any weight gain again. Breanne Whittington documented in this encounterMer[facility]09-19-2022 Miscellaneous Notes* Telephone Encounter - Florencia Garrett RN - 01/30/2022 8:45 AM EDT Patient notified office he has COVID (01/29)- he has an appointment with Dr Devlin on 02/01. Appointment has been changed to a VV at the same time. Patient and scheduling notified. [address] Devlin. Florencia Garrett RN, BSN Edi Coordinator [facility] documented in this encounterMercy [facility] St. [facility]09-15-2022 History of Present illness Narrative* RT Devonte(R) - 01/26/2022 10:00 AM EDT Radiology Service Progress Note DATE OF SERVICE: January 26, 2022 TIME: 10:34 AM PATIENT IDENTITY VERIFICATION COMPLETED USING TWO (2) STANDARD IDENTIFIERS: Name and Date of confirmed by patient verbally. FALL SCREENING: Has the patient had 2 falls in the last year or 1 fall with injury or currently using an Ambulatory Assistive Device (Walker, Cane, Wheelchair, Crutches, etc.)? No PATIENT GENDER DATA: Male PATIENT RELEVANT IMPLANT DATA REVIEWED: Yes ALLERGIES: Reviewed and unchanged CONTRAST ALLERGY: NO. EXAM: MRI - CONTRAST TYPE: GROUP II PERIPHERAL IV DATA: Ambulatory: A peripheral IV was started in the Left antecubital site with a Angio cath: 22 gauge. RADIOLOGY DEPARTMENT: MR; Exam(s) Completed: Head: Routine Brain Lower MSK: Ankle/Hind Foot, right SIGNATURE: RT Devonte(R) PATIENT NAME: Watson Rodriguez DATE: January 26, 2022 TIME: 10:34 AM documented in this encounterMercy Health [facility]. [facility]09-06-2022 Miscellaneous Notes* Telephone Encounter - Yancy Centeno MD - 01/17/2022 5:30 PM EDT Summary: Reply Images from the original note were not included. I spoke with Paty Zach, I informed him that I received a message form his podiatrics Dr. Carrillo, about the EMG result andthat he wants to do an MRI of the foot/leg. I also noted the change he made to his LEV. PLAN: I discussed the potential etiologies of the Rt foot burning, whether is intrinsic, local/vascular./MSK/ventral from the tumor/focal seizures? Also whether any other tests are needed to explain this symptom. I discuss again that form my perspective, MAMI may need to be considered depending on the MRI results and or his symptoms, if we can attribute the symptom to his tumor. For now I told him I will await for the next MR scheduled for 01/26/22, and a visit with me afterwards. He is also seeing Dr. Sutton shortly after the MRI MD Carmenza Faith Dwight K January 17, 2022 to Me 10:[address] Camacho, My PCP Dr Whittington and doctor of radiology Dr Carrillo have conducted testing to evaluate right foot burning that is intermittent. Can you consult with pharmacist to determine of burning in right foot is drug interaction? Can you also please consult with Dr Whittington and Dr Alanis to determine next steps on resolution of right foot burning. Dr. Watson Rodriguez, PhD January 14, 2022 Watson Rodriguez to Me 7:[address] Centeno The EMG result of right foot / leg did not show any deficits. Dr Carrillo Doppler test showed good blood flow. My Keppra elevation to 1000 mg 2x caused severe leg fatigue. Keppra at 750 mg am and 1000 mg pm has reduced leg fatigue but burning in foot has still persisted. Can you please consult with Dr Whittington PCP and Dr Carrillo and the brain tumor board to identify options for reducing foot burning. Watson documented in this encounterMercy Health St. [facility]08-26-2022 History of Present illness Narrative* Denis King MD - 01/06/2022 11:17 AM EDT UNIVERSAL PROTOCOL / SAFETY CHECKLIST Procedure to be Performed: EMG Sign In: A Moment of CARE was completed. Personnel directly involved with the procedure wore the appropriate PPE (Personal Protective Equipment). Patient/Surrogate Stated/Verified: PATIENT VERIFIED(optional for EMERGENT procedures): Patient name, Date of , Relevant allergies, and The intended procedure Time Out Communication: Intended patient and procedure match the source documents. Correct side/site marked and visible. Sign Out: SIGN OUT (optional for EMERGENT procedures): Post-procedure follow-up management communicated and Plan of Care Visit completed when applicable. Michelle Quinones EMG Denis King MD documented in this encounterMercy Health St. [facility]08-10-2022 Miscellaneous Notes* Telephone Encounter - Yancy Centeno MD - 12/21/2021 5:58 PM EDT Summary: Right leg sensaiton I spoke with Mr. Rodriguez, tells me that upon increasing the dose of levetiracetam, he feels that inthe past week or so, his right leg fells more heavy, and this feels the same when he was only on Keppra, at 1000 mg BID last year. Current dose 750 mg in am and 750 at night Vimpat 200 mg BID. He has not had seizures. He feels Ok otherwise. Plan: Change the dose of Keppra to take 500 mg in am and 1000 mg at night. He ahs 500 mg tabs. He has been more active, in terms of walking. He is aware that he could have seizures, but he knows what to do, and he has rescue medication, clonazepam. He agrees with this plan. Yancy Centeno MD documented in this encounterMercy Health St. [facility]08-09-2022 Instructions* Patient Instructions* Augustin Carrillo - 12/20/2021 11:28 AM EDT Powerstep Original Full length. Can purchase at [employer] here in [place], [employer] in [place] or [place]. Also can find in [place] in [facility]. Powersteps can also be purchased online, starting around $25.00 If you have a metatarsal or dancer pad for your feet apply the pad directly to the insole so you can interchange between your shoes. Find a shoe with a removable insole and take this out and replace with your powerstep insole. Always bring powersteps with you when shopping for shoes so that you can make sure that everything fits well together documented in this encounterMercy Health St. [facility]08-09-2022 History of Present illness Narrative* Augustin Carrillo - 12/20/2021 11:13 AM EDT Consultation requested by Dr. Whittington for an opinion regarding numbness in right foot. My final recommendations will be communicated back to the requesting physician by way of shared Medical record or letter to requesting physician via US mail. Initial Podiatric Office Visit: Chief Complaint: This 61 year old male who presents with chief complaint:numbness in right foot HPI Patient presents to clinic with complaint of numbness in right foot. The numbness/burning is only present in the right foot and is intermittent. Patient states the numbness and burning is not daily. Patient states he can experience numbness while walking and also while sitting. He states the numbness generally starts at a low level and does increase. He states at times, exercise may decrease the numbness He saw another provider who informed him that this is not neuropathy. Patient is not taking any medication for the numbness He does have history of gamma knife for brain menigioma in july 2020. PAIN EVALUATION 12/20/2021 1102 Pain Level: 7 Pain Location: Foot-Right Description: Burning;Tingling Duration Amount of Time: 9 Duration Units: Months Frequency: Intermittent Intervention/Comfort measure: Reposition;Relaxation No results found for: HBA1C PCP: Breanne Whittington MD PAST MEDICAL HISTORY Diagnosis Date Acute myocardial infarction of lateral wall (HCC) 2012 s/p LAD stent Benign neoplasm of colon Benign neoplasm of meninges (HCC) 08/02/2020 Hyperlipidemia Seizure (HCC) focal motor Current Outpatient Medications Medication Sig clonazePAM orally disintegrating (KLONOPIN WAFER) 1 mg disintegrating tablet Dissolve 1 mg under the tongue as needed. lacosamide (VIMPAT) 100 mg tab Take 200 Mg BID levETIRAcetam (KEPPRA) 500 mg tablet Take 1.5 tablets by mouth twice daily. pentoxifylline ER (TRENTAL) 400 mg CR tablet Take 1 tablet by mouth three times daily with meals. sildenafil (VIAGRA) 100 mg tablet Take 1 pill 1 hour prior to sexual activity on empty stomach Vitamin E, dl, acetate, (VITAMIN E) 400 unit capsule Take 1 capsule by mouth three times daily. dexAMETHasone (DECADRON) 2 mg tablet 2 mg the day prior to the flight, the day of the flight and the day after the flight. midazolam (NAYZILAM) 5 mg/spray (0.1 mL) nasal spray Use 1 spray in one nostril as needed for seizures. May repeat dose in alternate nostril after 10 minutes based on response and tolerability. Only take for seizures lasting more than 3 minutes or more than 3 seizures in an hour CPAP Initiate Auto PAP @ 5-20 cm of water with humidification. Mask (per patient preference) optional chin strap (if indicated) , filters, tubing, humidifier and lifetime supplies. rosuvastatin (CRESTOR) 40 mg tablet Take 40 mg by mouth. Multivitamin capsule Take 1 capsule by mouth once daily. aspirin(ADULT LOW DOSE ASPIRIN 81 MG TAB, DELAYED RELEASE) Take one(1) tablet daily. No current facility-administered medications for this visit. ALLERGIES Allergen Reactions Atorvastatin Myalgia, Other: See Comments PAST SURGICAL HISTORY Procedure Laterality Date COLONOSCOPY FLX DX W/COLLJ SPEC WHEN PFRMD 10/29/2009 Colonoscopy HEMORRHOID;BAND LIGAT, SNGL/MUL 12/2016 PAST SURGICAL HISTORY OF Left 04/2017 left knee arthroscopy - meniscus PAST SURGICAL HISTORY OF 01/2013 PTCA x 1 - LAD FAMILY HISTORY Problem Relation Age of Onset Colon Cancer Mother ascending large intestine removed 2008 at 80 years old Colon Cancer Maternal Grandmother portion lower colon removed 60 years old, colostomy Social History Tobacco Use Smoking status: Never Smokeless tobacco: Never Vaping Use Vaping Use: Never used Substance Use Topics Alcohol use: No Drug use: No REVIEW OF SYSTEMS GENERAL: Negative for Malaise, significant weight loss, fever RESPIRATORY: Negative for cough, wheezing and shortness of breath CARDIOVASCULAR: Negative for chest pain, leg swelling and palpitations GI: Negative for abdominal discomfort, blood in stools or black stools and change in bowel habits : Negative for dysuria, frequency and incontinence MUSCULOSKELETAL: Negative for joint pain or swelling, back pain, and muscle pain. SKIN: Negative for lesions, rash, and itching. HEMATOLOGY/LYMPHOLOGY Negative for prolonged bleeding, bruising easily, and swollen nodes. ENDOCRINE: Negative for cold or heat intolerance, polyuria, polydipsia and goiter. NEURO: negative Physical Exam: Constitutional: Pt is a well developed 61 year old male who is alert, oriented and cooperative Eyes: Following during examination. No redness or drainage. Respiratory: RR normal and nonlabored. Even breathing. No evidence of distress or shortness of breath. Psychology: Patient is engaged during conversation. Normal affect and mood. Does not appear depressed or anxious during encounter. Vascular: Dorsalis pedis and posterior tibial pulses palpable as b/l Capillary Fill time < 5 seconds to digits 1-5 b/l Skin temperature warm to warm proximal to distal b/l Hair growth present to digits Neurological: intact light touch/epicritic sensation Vibratory sensation intact to hallux b/l + protective sensation No significant neurological deficits Dermatological: Nails 1-5 b/l appear normal. Webspaces clean and dry 1-4 b/l. Skin appears well hydrated and supple. good color, texture, turgor. No open lesions present. No callosities present. Musculoskeletal/Orthopaedic: Patient has no pain to palpation of b/l feet Foot type is neutral structurally AJ ROM is full with knee extended and flexed 1st MPJ is full when loaded and no pain or crepitus are noted with ROM. MTJ, STJ are full and free of pain and crepitus. +5/5 muscle strength dorsiflexion, plantarflexion, inversion, eversion b/l Radiographs: n/a ASSESSMENT: (R20.0) Numbness (primary encounter diagnosis) (M79.671) Foot pain, right PLAN: 1. History and physical examination performed. 2. Discussed numbness in right foot. Discussed various causes of numbness and various treatment options. 3. Recommend obtaining xray of foot as baseline study. 4. Will obtain emg to evaluate for any radiculopathy or neuropathy 5. Pending emg and xrays, may consider mri to evaluate for any space occupying lesion placing pressure on posterior tibial nerve. 6. Will call with results. Augustin Carrillo DPM Podiatry [address] [facility] [id number]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 unlikely that he has a lumbosacral pathology to a peripheral process to explain this. He had a lumbar MRI in May 2020, and to my eye I see no significant pathology, and the report also shows no significant neuro foramina narrowing orspinal canal stenosis, other than some mild narrowing of the neural foramina form spurring at L4-5. THIS HAS IMPROVED. 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 PLAN: My own empiric practice. In order to decrease the possibility of steroid edema for flying, empirically recommended for the patient to take dexamethasone 2mg daily, the day prior to the flight, the day of the flight, and the day after the flight. I told him, that he suffered an empiric approach but this is my practice. Therapy Status Data Form Past Medical History: PAST MEDICAL HISTORY Diagnosis Date Acute myocardial infarction of lateral wall (HCC) 2012 s/p LAD stent Benign neoplasm of colon Benign neoplasm of meninges (HCC) 08/02/2020 Hyperlipidemia Seizure (HCC) focal motor Past Surgical History: PAST SURGICAL HISTORY Procedure Laterality Date COLONOSCOPY FLX DX W/COLLJ SPEC WHEN PFRMD 10/29/2009 Colonoscopy HEMORRHOID;BAND LIGAT, SNGL/MUL 12/2016 PAST SURGICAL HISTORY OF Left 04/2017 left knee arthroscopy - meniscus PAST SURGICAL HISTORY OF 01/2013 PTCA x 1 - LAD Family History: FAMILY HISTORY Problem Relation Age of Onset Colon Cancer Mother ascending large intestine removed 2008 at 80 years old Colon Cancer Maternal Grandmother portion lower colon removed 60 years old, colostomy Social History Tobacco Use Smoking status: Never Smoker Smokeless tobacco: Never Used Vaping Use Vaping Use: Never used Substance Use Topics Alcohol use: No Drug use: No Allergies: Atorvastatin Current Outpatient Medications Medication Sig pentoxifylline ER (TRENTAL) 400 mg CR tablet Take 1 tablet by mouth three times daily with meals. YES Vitamin E, dl, acetate, (VITAMIN E) 400 unit capsule Take 1 capsule by mouth three times daily. YES pyridoxine, vitamin B6, (VITAMIN B-6) 100 mg tablet Take 1 tablet by mouth once daily. NO lacosamide (VIMPAT) 50 mg tab Take 200 mg BID (give the 50 mg tabs) levETIRAcetam (KEPPRA) 750 mg tablet Take 1 tablet by mouth twice daily. midazolam (NAYZILAM) 5 mg/spray (0.1 mL) nasal spray Use 1 spray in one nostril as needed for seizures. May repeat dose in alternate nostril after 10 minutes based on response and tolerability. Only take for seizures lasting more than 3 minutes or more than 3 seizures in an hour sildenafil (VIAGRA) 50 mg tablet Take 1 tablet by mouth as needed. CPAP Initiate Auto PAP @ 5-20 cm of water with humidification. Mask (per patient preference) optional chin strap (if indicated) , filters, tubing, humidifier and lifetime supplies. rosuvastatin (CRESTOR) 40 mg tablet Take 40 mg by mouth. YES Multivitamin capsule Take 1 capsule by mouth once daily. YES clopidogrel (PLAVIX) 75 mg tablet Take 75 mg by mouth once daily. YES aspirin(ADULT LOW DOSE ASPIRIN 81 MG TAB, DELAYED RELEASE) Take one(1) tablet daily. YES No current facility-administered medications for this visit. Review of systems: SEE ABOVE Constitutional: No recent fever or weight loss. Eyes: No history of glaucoma or cataracts. ENMT: No recent ear infection, nasal congestion, mouth sores or sore throat. See HPI CV: No history of chest pain, palpitations Right leg swelling, SEE HPI Respiratory: No history of SOB, asthma or recent cough. Gastrointestinal: No history of nausea, vomiting, dysphagia or abdominal pain. Genitourinary: No history of hematuria or dysuria. Musculoskeletal: No complaint of arthritis Has Right leg weakness, see HPI. Psychiatric: No history of hallucinations He feels somewhat anxious and also down emotionally as his neurological disability is affecting hisQOL. ROS Neurological: SEE HPI No complaint of headache. Complaint of tinnitus, bilateral . No complaint of decreased hearing. No complaint of diplopia. No complaints of decreased visual acuity. Complaint of RT arm/leg numbness. Problem with RT limb coordination. No complaint of syncope Complaint of seizures, see HPI No loss of consciousness. Objective No physical Exam was performed, as this was the virtual visit, however on observation the patient appeared in no distress, he was eloquent, no language dysfunction that I could elicit, no cranial nerve abnormalities are grossly on observation. Karnofsky performance status: 70 - Cares for self, unable to carry on normal activity or to do work. ECOG performance status: 1 - Restricted in physically strenuous activity but ambulatory and able tocarry out work of a light or sedentary nature, e.g., light house work or office work. PHQ 2 and 9 Total Scores 11/03/2021 PHQ-2 Score 0 PHQ-9 Score 0 Labs: CBC Latest Ref Rng & Units 06/24/2021 07/04/2021 08/31/2021 WBC 3.70 - 11.00 k/uL 3.40(L) 4.45 6.76 RBC 4.20 - 6.00 m/uL 4.79 4.69 4.83 HEMOGLOBIN 13.0 - 17.0 g/dL 15.2 14.7 15.2 HEMATOCRIT 39.0 - 51.0 % 43.2 42.4 44.3 MCV 80.0 - 100.0 fL 90.2 90.4 91.7 MCH 26.0 - 34.0 pg 31.7 31.3 31.5 MCHC 30.5 - 36.0 g/dL 35.2 34.7 34.3 RDW-CV 11.5 - 15.0 % 11.8 11.7 11.6 PLATELETS 150 - 400 k/uL 166 170 221 MPV 9.0 - 12.7 fL 8.7(L) 8.3(L) 8.2(L) BASO% % 0.3 0.2 0.3 ABS NEUT (ANC) 1.45 - 7.50 k/uL 2.06 3.02 5.04 ABS LYMPH 1.00 - 4.00 k/uL 0.87(L) 0.84(L) 0.96(L) ABS MONO <0.87 k/uL 0.43 0.55 0.68 ABS EOSIN <0.46 k/uL 0.03 <0.03 <0.03 ABS BASO <0.11 k/uL <0.03 <0.03 <0.03 NRBC /100 WBC - - 0.0 DIFF TYPE - Auto Diff Auto Diff - CMP Latest Ref Rng & Units 12/24/2020 01/08/2021 06/24/2021 SODIUM 136 - 144 mmol/L 137 139 134(L) POTASSIUM 3.7 - 5.1 mmol/L 3.9 4.0 4.1 CHLORIDE 97 - 105 mmol/L 104 102 101 CO2 22 - 30 mmol/L 24 26 27 GLUCOSE 74 - 99 mg/dL 95 93 89 BUN 9 - 24 mg/dL 15 14 12 CREATININE 0.73 - 1.22 mg/dL 1.05 1.09 1.10 EGFR-ALL OTHER RACES . >60 >60 >60 EGFR- - >60 >60 >60 PROTEIN, TOTAL 6.3 - 8.0 g/dL 6.8 6.7 6.3 ALBUMIN 3.9 - 4.9 g/dL 4.5 4.6 4.5 CALCIUM, TOTAL 8.5 - 10.2 mg/dL 9.6 9.5 9.2 BILIRUBIN, TOTAL 0.2 - 1.3 mg/dL 0.7 0.4 0.6 AST 14 - 40 U/L 20 28 18 ALT 10 - 54 U/L 21 27 21 ALKALINE PHOSPHATASE 38 - 113 U/L 69 71 77 Final Pathology: N/A PATIENT HAS NOT HAD A BIOPSY OF HIS BRAIN TUMOR. Imaging: MRI Report MRV BRAIN WO/W IVCON Exam End: 07/18/2021 11:11 AM (Final result) Narrative: * * *Final Report* * * DATE OF EXAM: Jul 18 2021 11:11AM NIDHI [id number] - MRV BRAIN WO/W IVCON / PROCEDURE REASON: Meningioma (HCC) * * * * Physician Interpretation * * * * EXAMINATION: MRI BRAIN WO/W IVCON, MRV BRAIN WO/W IVCON CLINICAL HISTORY: Left parasagittal meningioma s/p GKRS. TECHNIQUE: Intracranial mass brain MRI protocol without and with contrast including diffusion images. Intracranial 3D oblique [id number] MRV and gadolinium enhanced coronal T1 subtracted volumetric acquisition of the intracranial vessels. 3D maximum intensity projection images were created, reviewed and archived. MQ: [id number] Contrast: 17 mL Dotarem IV COMPARISON: MRI brain 04/22/2021, 07/27/2020 imported CTA head RESULT: MRI BRAIN Acute Change: There is no evidence of an acute intracranial process. Hemorrhage: No evidence of prior parenchymal hemorrhage on the gradient echo images. Mass Lesion/ Mass Effect: Stable well demarcated extra-axial homogenously enhancing T2 mildly hyperintense, FLAIR predominantly isointense, T1 mildly hypointense mildly diffusion restricting 5.0 x 4.3 x 3.9 cm centered over the posterior falx eccentric to the left with mass effect on the left paracentral lobule and left greater than right superior parietal lobules. There is underlying invasion of the superior sagittal sinus with obscuration of the superior sagittal sinus flow void in this region. Stable degree and extent of the T2/FLAIR hyperintensity surrounding the lesion in the posterior left frontal and parietal white matter with no apparent signal changes on the contralateral side. Chronic Change: The white matter is otherwise within normal limits of signal intensity for age. Parenchyma: No significant volume loss for age. Ventricles: Normal caliber and morphology. Skull Base: Hypothalamic and pituitary region are grossly normal. Craniocervical junction is normal. No significant marrow replacement process. Vasculature: Obscuration of the flow void the superior sagittal sinus in the region of infiltrating meningioma. Otherwise the major intracranial arterial structures, and dural venous sinuses show typical flow void, suggesting patency by spin echo criteria. Other: Minimal retained T2 hyperintense secretions in a single left anterior ethmoid air cell. Trace mucosal thickening along the inferior margin of the left maxillary sinus. The visualized paranasal sinuses and mastoid air cells are otherwise clear. The orbits and extracranial soft tissues are unremarkable. MRV There is loss of flow within the superior sagittal sinus adjacent to the large meningioma on the ucmz-wu-upwtts images, although the portions of the superior sagittal sinus both anterior and posterior to this have preserved flow signal. There is similar loss of postcontrast enhancement of the segment on the gadolinium-enhanced images. Suspect collateralized flow along the margins of the mass given the appearance on the prior CTA and preserved flow within the surrounding superficial cortical veins and preserved flow signal both anterior and posterior to the mass otherwise. Dominant drainage via the right transverse and right sigmoid sinus into the right internal jugular vein with patent although smaller caliber left transverse and left sigmoid sinus. Patent unremarkable appearance of the straight sinus, great cerebral vein, internal cerebral veins, and basal veins of Valerie. Impression: IMPRESSION: Stable large left parafalcine meningioma with apparent invasion of the underlying superior sagittal sinus with loss of flow signal and postcontrast enhancement through this segment of the dural sinus although with otherwise preserved flow both anterior and posterior to the mass and surrounding cortical veins suggesting collateralized flow. Paper Goods Machine Operator: [facility] Transcribe Date/Time: Jul 18 2021 2:17P Dictated by : QAMAR KIRK MD This examination was interpreted and the report reviewed and electronically signed by: REGGIE KIMBLE MD on Jul 18 2021 2:57PM EST Complete Results CT BRAIN WO IVCON (Order [id number]) Patient Info Patient Name Sex Watson Argueta ([id number]) Male 1960 08/25/2021 12:55 PM - Radiology, Oru In Impression IMPRESSION: Suboptimal assessment of a meningioma involving the posterior falx and superior sagittal sinus at the vertex with marked mass effect on the underlying frontal and parietal lobe with moderate degree of perilesional vasogenic edema. No midline shift or brain herniation. Findings are likely not significantly changed from 07/18/2021, accounting for differences in imaging technique. Paper Goods Machine Operator: [facility] Transcribe Date/Time: Aug 25 2021 12:32P Dictated by : CHELSEY VAUGHN MD This examination was interpreted and the report reviewed and electronically signed by: YEIMI HINSON MD on Aug 25 2021 12:53PM EST Results-Findings * * *Final Report* * * DATE OF EXAM: Aug 25 2021 12:34PM [facility] 0504 - CT BRAIN WO IVCON / PROCEDURE REASON: multiple diagnoses * * * * Physician Interpretation * * * * EXAMINATION: CT BRAIN WO IVCON HISTORY: Meningioma (HCC) Brain edema (HCC) Seizure (HCC) - - - - Neoplasm: head, metastatic, suspected - [id number] - - Worsening seizures,?? Meningioma - - TECHNIQUE: CT head without contrast. M: [id number]_3 CT Dose-Length Product (DLP): 784 mGy*cm CT Dose Reduction Employed: Automated exposure control(AEC) and iterative recon COMPARISON: MRV and MRI brain 07/18/2021, MRI brain 04/22/2021. RESULT: Post-operative change: None. Acute change: No evidence of an acute infarct. Vasogenic edema associated with the meningioma, as detail below under mass lesion/mass effect section. Hemorrhage: No evidence of acute intracranial hemorrhage. Mass Lesion / Mass Effect: Large extra-axial mass centered at the posterior falx and superior sagittal sinus at the vertex. Determination of the precise margins of the mass for accurate measurements is not possible without IV contrast, the mass does not grossly appear significantly changed in size from 07/18/2021. Again seen is similar moderate perilesional vasogenic edema involving the adjacent dorsal left frontal lobe and superior parietal lobule, structures upon which the mass exerts marked mass effect. There is no midline shift or brain herniation. Chronic change: None apparent. Parenchyma: No significant parenchymal volume loss. Ventricles: Normal caliber and morphology. Other: The calvarium, skull base, imaged paranasal sinuses, mastoids, orbits and extracranial soft tissues are unremarkable. Shot Blast Equipment Operator (topogram) images: No additional findings. Result History CT BRAIN WO IVCON (Order #[id number]) on 08/25/2021 - Order Result History Report Result Information Status Provider Status Final result (08/25/2021 12:55 PM) Reviewed Exam Performed Date and Time 08/25/2021 12:34 PM Resulting Agency [id number] OF RADIOLOGY AT [facility] [id number] Assessment & Plan Mr. Watson Rodriguez is a 61 year old male investigated for right leg numbness and weakness (couldn'tstand on it) April 2020. Work up for lumbar spine cause non conclusive. 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 His right leg still numb and weak. High step gait to avoid dragging his right lower extremity. He had GK-SRS to the tumor (25Gy/5fx) from 08/16/2020-08/20/2020. PLAN: 1-Continue on lacosamide (Vimpat) at 200 mg BID for now. 2-Continue Keppra 750 mg BID 3-Rescue medications for breakthrough seizures using either midazolam nasal spray, within 24 hours,and clonazepam sublingual, but not to use it on the same day as midazolam. I discussed with the patient the potential benefits and side effects of this medications and he knows when and how to use them. 4-Seizure precautions as discussed above, as I recommended for him not to drive a car or any motorized vehicle. 5-Driving test with Rehab - simulation center. To be done after the qamar MR (booked for Jan 26, 2022). Wishes to go to the [place]. 6-MRI of the brain w and w/o scheduled for Jan 26, 2022. 7-Follow-up with Dr. Sutton and Dr. 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 8-Follow with Dr. Sutton, for clinical and imaging surveillance for his meningioma. I am certainlyhappy to follow him along with Dr. Sutton. Scheduled appointment with Dr. Sutton Jan 30, 2022. 9-Follow with his primary physician Dr. Whittington. 10-Levetiracetam and lacosamide levels on Jan 26, 2022 (order entered). 11-Return to neuro-oncology clinic, [facility], within 1-2 weeks after Jan 30, 2022 VISIT IN PERSON. At the end, Mr. Rodriguez verbalized understanding, and agreement with above recommendations and had no further questions or concerns for the moment. I encourage him to karina, me at my office if he has any questions about the above plan. I spent 57 minutes in the visit, with more than 50% of the total gkhe-ws-eryg time of the visit in counseling / coordination of care. Yancy Centeno MD Staff Neuro-Oncologist [facility] CC: Dr. Trev Sutton, Neurosurgery, [facility] PCP Breanne Whittington MD PCP - General Family Practice 12/17/2020 End [address] [id number] ; documented in [facility] encounter[facility] Instructions* Patient Instructions* Danielle Irwin APRN.CNP - 11/07/2021 12:32 PM EDT PAP Supply Guidelines Below are the guidelines for reordering your supplies. You will be responsible for your deductible,co-payments, and out of pocket expenses. Item Medicare & Commercial Insurance Medicaid & HCAP Nasal Mask (no headgear) 1 every 3 months 1 per year Nasal Mask Cushion 1 every month 2 per year Full Face Mask (no headgear) 1 every 3 months 1 per year Full Face Mask Cushion 1 every month *Self-Pay Nasal Pillows 2 every month 2 per year Headgear 1 every 6 months 1 per year Chin Strap 1 every 6 months 2 per year Tubing 1 every 3 months 1 per year Filters: Reusable 1 every 6 months 4 per year Filters: Disposable 2 every month 1 per month Humidifier Chamber(disposable) 1 every 6 months *Self-Pay documented in this encounterMer[facility]06[facility]27[facility]22 History of Present illness Narrative* Danielle Irwin APRN.CNP - 11/07/2021 11:30 AM EDT Images from the original note were not included. [facility] Follow up/ Established patient visit Date of last visit : 04/29/2021 Per last visit: IMPRESSION/PLAN: Diagnosis: G47.33 MELL (obstructive sleep apnea) (primary encounter diagnosis) I25.10 Coronary artery disease involving benton coronary artery of benton heart without angina pectoris I35.0 Nonrheumatic aortic valve stenosis D32.9 Meningioma (HCC) N18.1 CKD (chronic kidney disease) stage 1, GFR 90 ml/min or greater Sleep Studies: Home Sleep Test (HST) 01/21/21 revealed at least moderate MELL (Total AHI of 19.2, Off-Supine AHI 12.4, Supine AHI 27.4) that was associated with a minimum oxygen saturation of 87%. The patient spent 26.0 minutes at oxygen saturation measured less than 90% (4.9% of recording time) and 3.6 minutes at oxygen saturation measured at or less than 88% (0.7% of recording time). Overview: Mr. 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 Since GKRS he had side effects from steroid including insomnia. Steroid was discontinued in early October 2020. Reviewed Progress Note from Dr. Trev Sutton 04/25/2021 February 18, 2021 update: Mr. Rodriguez is having 2-3 partial seizures a week, lasting a few seconds, mostly restricted to his right leg, but sometimes spread to his right arm. His major complain is fatigue and lack of energy. He refers that he has good and bad days regarding his energy levels, but overall he is frequently tired and unable to exercise. April 25, 2021 update: Mr. Rodriguez has been on Trental, Vitamin E and Zonegran. He feels that his right leg is stronger and his right arm is normal when compared to the left. Since changing his AED his seizures have improved in frequency, but he is having constant tinnitus, sound hypersensitivity and photosensitivity. He is very limited by this symptoms and has not been able to function properly, social and professionally. Today, Mr. Rodriguez was accompanied by his to office visit for a history of fatigue and snoring. HST 01/21/21 revealed at least moderate MELL. Dr. Breanne Larson ([facility]) ordered an AutoPAP and referred patient to Sleep Medicine on 02/16/21. Discussed the results of the HST 01/21/21 and that they may represent an underestimation of the degree of obstructive sleep apnea, especially hypopneas, because of the known limitations of HSAT, such as inability to record arousals because EEG is not recorded. Discussed the diagnosis and physiology of obstructive sleep apnea. Discussed the importance of treating MELL, with particular attention given to the comorbidities associated with untreated MELL, which include but are not limited to HTN, stroke and CAD. Treatment options for sleep apnea, including positive airway pressure (PAP) therapy, surgery, oral appliance and conservative measures (avoidance of alcohol, sedative medications and sleeping in the back position, management of nasal obstruction and weight loss), should be individualized. Mr. Rodriguez has met his insurance requirements for PAP Therapy - Doing well with PAP therapy. - Denies mask or pressure intolerance. - Compliant and benefiting from treatment. - Face to face examination done today. - Data download reviewed with both patient and his . - Both face to face exam and download has ensured tolerance, compliancy and efficacy. Compliancy of97% and hours of usage 7 hours/33 minutes. Compliance Report: 03/28/21-04/26/21 Pressure 5-20 cmH20 Usage days 29/30 days (97%) >= 4 hours - 29 days (97%) Average # hours nights used - 7 hours/33 minutes Pressure 90th % -9.3 Average time in large leak per day - 13.9 Residual AHI - 1.5 Plan: - Continue Auto CPAP at 5-20 cmH2O for MELL. - Remember to clean your mask and equipment regularly, as directed. - You should be eligible for new supplies approximately every 3-6 months, depending on your insurance coverage. Contact your Durable Medical Equipment (DME) company for new supplies as needed. - Follow up in 6-12 months with Danielle Irwin CNP or any Sleep ANTHONY's. If you have questions, feel free to send me a [employer] message or contact [place] office at [phone] (after hours, leave message at [phone]). I spent a total of 90 minutes as this was a new patient to me on the date of the service which included preparing to see the patient, [id number] patient care, completing clinical documentation, counseling and educating the patient/family/caregiver and ordering medications, tests, or procedures. Danielle Irwin APRN.MONO Interval history : Here for follow up for MELL (continue CPAP 5-20 cmH20). SLEEP APNEA Sleep apnea type : MELL, Most Recent Apnea-Hypopnea Index (AHI): Total AHI of 19.2, Off-Supine AHI 12.4, Supine AHI 27.4 Treatment : PAP therapy DME: [facility] PAP History: Uses AutoPAP for 7 hours per night, 7 nights per week. Current PAP settin-20 cm H2O. Difficulties with AutoPAP: None Reviewed Objective PAP Compliance Report: 09/27/21-10/26/21 Usage days 30/30 days (100%) >= 4 hours - 30 days (100%) Average # hours nights used - 7 hours 38 mintues Pressure 90th % - 9.0 cmH20 Average time in large leak per day - 7.7 L/min Residual AHI - 1.5 Mask type: Full face mask Mask issues: None Uses chin strap: No Uses ramp function: No Uses humidity: Yes, Protocol: Distilled There is a perceived benefit by the patient: Sleeping better. Wakes up feeling more refreshed. Fewer seizures. Observers report abolition of snoring and respiratory events with AutoPAP use. SLEEP HYGIENE QUESTIONS: Bedtime : 2230 Wake up Time : 0615 Time it takes to fall sleep : 5 minutes Activities in bed before falling asleep : None Number of times patient wakes up per night : 1-3 Reason (s) why patient wakes up during the night : Void Estimated total sleep time ( in a 24 hour period of time) : 7 Naps : No PATIENT-ENTERED QUESTIONNAIRE SLEEP SCORES Sleep Questions 11/03/2021 Reason for visit: Sleep apnea Average hours slept in 24 hours: 8 Average hours of CPAP per night: - Percent of nights CPAP used at least 4 hours: 8 Accidents or near accidents due to drowsy drivin [place] Sleepiness Scale 03/07/2021 04/25/2021 11/03/2021 Score 8 (No daytime sleepiness) 7 (No daytime sleepiness) 7 (No daytime sleepiness) PROMIS CAT Sleep Disturbance 04/25/2021 09/07/2021 11/03/2021 PROMIS Sleep Disturbance T-Score 54 (within normal limits) 41 (within normal limits) 44 (within normal limits) Insomnia Severity Index 07/16/2020 Score 5 Restless Leg Syndrome 03/07/2021 Score 7 PHQ-9 04/25/2021 09/12/2021 11/03/2021 Score 6 0 0 PROMIS Global Health - (T-Scores - the mean of general population = 50. Five points is a clinicallymeaningful difference.) 09/12/2021 10/30/2021 10/30/2021 Physical T-Score 57.7 47.7 47.7 Mental T-Score 59 50.8 50.8 PMH, PSH, SH: Reviewed SLEEP RELATED ROS Review of Systems Constitutional: Negative. Respiratory: Negative. Cardiovascular: Negative. Genitourinary: Positive for nocturia. Neurological: Positive for seizures. ALLERGIES Allergen Reactions Atorvastatin Myalgia, Other: See Comments CURRENT MEDICATIONS: sildenafil (VIAGRA) 100 mg tablet Take 1 pill 1 hour prior to sexual activity on empty stomach lacosamide (VIMPAT) 50 mg tab Take 200 mg BID (give the 50 mg tabs) pentoxifylline ER (TRENTAL) 400 mg CR tablet Take 1 tablet by mouth three times daily with meals. Vitamin E, dl, acetate, (VITAMIN E) 400 unit capsule Take 1 capsule by mouth three times daily. levETIRAcetam (KEPPRA) 500 mg tablet Take 1 tablet by mouth twice daily. dexAMETHasone (DECADRON) 2 mg tablet 2 mg the day prior to the flight, the day of the flight and the day after the flight. midazolam (NAYZILAM) 5 mg/spray (0.1 mL) nasal spray Use 1 spray in one nostril as needed for seizures. May repeat dose in alternate nostril after 10 minutes based on response and tolerability. Only take for seizures lasting more than 3 minutes or more than 3 seizures in an hour CPAP Initiate Auto PAP @ 5-20 cm of water with humidification. Mask (per patient preference) optional chin strap (if indicated) , filters, tubing, humidifier and lifetime supplies. rosuvastatin (CRESTOR) 40 mg tablet Take 40 mg by mouth. Multivitamin capsule Take 1 capsule by mouth once daily. aspirin(ADULT LOW DOSE ASPIRIN 81 MG TAB, DELAYED RELEASE) Take one(1) tablet daily. Prior Hypersomnia/Narcolepsy Medications (20 years) Some values may be hidden. Unless noted otherwise, only the newest values recorded on each date aredisplayed. Hypersomnia/Narcolepsy Medications No data to display. Prior RLS Medications (last 20 years) Some values may be hidden. Unless noted otherwise, only the newest values recorded on each date aredisplayed. RLS Medications rOPINIRole (REQUIP) 0.5 mg tablet Dose: 0.5 mg PRN Starting date: 07/18/2009 Ending date: 12/27/2020 (Discontinued) Prior Insomnia Medications (last 20 years) Some values may be hidden. Unless noted otherwise, only the newest values recorded on each date aredisplayed. Insomnia Medications clonazePAM orally disintegrating (KLONOPIN WAFER) 1 mg disintegrating tablet Dose: 1 mg TID PRN seizures Starting date: 05/09/2021 Ending date: 06/22/2021 (Discontinued) clonazePAM orally disintegrating (KLONOPIN WAFER) 1 mg disintegrating tablet Dose: 1 mg TID PRN seizures Starting date: 06/22/2021 Ending date: 08/23/2021 (Discontinued) Melatonin 5 mg cap Dose: once daily. Starting date: 07/18/2016 Ending date: 11/26/2020 (Discontinued) midazolam (NAYZILAM) 5 mg/spray (0.1 mL) nasal spray Dose: Use 1 spray in one nostril as needed forseizures. May repeat dose in alternate nostril after 10 minutes based on response and tolerability. Only take for seizures lasting more than 3 minutes or more than 3 seizures in an hour Starting date: 11/25/2020 Ending date: 12/27/2020 (Discontinued) midazolam (NAYZILAM) 5 mg/spray (0.1 mL) nasal spray Dose: Use 1 spray in one nostril as needed forseizures. May repeat dose in alternate nostril after 10 minutes based on response and tolerability. Only take for seizures lasting more than 3 minutes or more than 3 seizures in an hour (Patient has taken differently: Taking as prescribed as of 01/20/2021 8:56 AM) Starting date: 01/12/2021 Ending date:08/23/2021 (Discontinued) midazolam (NAYZILAM) 5 mg/spray (0.1 mL) nasal spray Dose: Use 1 spray in one nostril as needed forseizures. May repeat dose in alternate nostril after 10 minutes based on response and tolerability.Only take for seizures lasting more than 3 minutes or more than 3 seizures in an hour Starting date: 08/23/2021 Ending date: 08/23/2022 Medication marked as long-term PHYSICAL EXAMINATION: Vital Signs: BP 113/71 Pulse (!) 56 Ht 180.3 cm (5' 11) Wt 84.8 kg (187 lb) SpO2 96% BMI 26.08 kg/m PHYSICAL EXAM: Constitutional: Appearance: Well groomed. Well nourished male. Very pleasant. Skin: General: Skin is warm, dry, intact. Extremities: General: No dependent edema. Neurological: General: No focal deficit present. Mental Status: A&OX3 (person, place, and time). Speech: Clear, projects well. Memory: Intact, responses appropriate. Psychiatric: Mood and Affect: Mood normal. Behavior: Behavior normal IMPRESSION: Diagnosis: Mell (obstructive sleep apnea) (primary encounter diagnosis) Sleep Studies (Reviewed Prior and Current): Home Sleep Test (HST) 01/21/21 revealed at least moderate MELL (Total AHI of 19.2, Off-Supine AHI 12.4, Supine AHI 27.4) that was associated with a minimum oxygen saturation of 87%. The patient spent 26.0 minutes at oxygen saturation measured less than 90% (4.9% of recording time) and 3.6 minutes at oxygen saturation measured at or less than 88% (0.7% of recording time). Overview: Mr. 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 Since GKRS he had side effects from steroid including insomnia. Steroid was discontinued in early October 2020. Today he is following up for MELL (continues PAP therapy). - Doing well with PAP therapy. - Denies mask or pressure intolerance. - Compliant and benefiting from PAP treatment. Reviewed Objective PAP Compliance Report: 09/27/21-10/26/21 Usage days 30/30 days (100%) >= 4 hours - 30 days (100%) Average # hours nights used - 7 hours 38 mintues Pressure 90th % - 9.0 cmH20 Average time in large leak per day - 7.7 L/min Residual AHI - 1.5 Plan: - Continue Auto CPAP at 5-20 cmH2O for MELL. - Remember to clean your mask and equipment regularly, as directed. - You should be eligible for new supplies approximately every 3-6 months, depending on your insurance coverage. Contact your [employer] company for new supplies as needed. - Follow up in 12 months with Danielle Irwin CNP or any Sleep ANTHONY's. If you have questions, feel free to send me a [employer] message. I spent a total of 30 minutes as this was an established patient to me on the date of the service which included preparing to see the patient, [id number] patient care, completing clinical documentation, counseling and educating the patient/family/caregiver and ordering medications, tests, or procedures. Danielle Irwin APRN.MONO documented in this encounter[facility]22 Instructions* Patient Instructions* Dimitry Pedraza MD - 11/04/2021 11:59 AM EDT Please call [phone] to schedule an appointment with Viola Mast PsyD who specializes in sex therapy. documented in this encounterMer[facility]06-[facility]22 History of Present illness Narrative* Dimitry Pedraza MD - 11/04/2021 11:22 AM EDT Images from the original note were not included. [facility] UROLOGY NEW PATIENT CLINIC NOTE PATIENT INFO: Watson Rodriguez (61 year old) Referred by: Breanne Whittington [address] [place] [address] 11/04/2021 UROLOGY DIAGNOSES: 1. Impotence of organic origin - ICD9: 607.84, ICD10: N52.9 CHIEF COMPLAINT: ED HPI: 61 year old, male presents for evaluation of ED S/p Gamma knife Has seizures Hx of AK Has used Viagra 50mg for 10 yrs PRN Since the meningioma not working as well Concern about effecting seizure medication Rigidity 30% Cant maintain Able to orgasm/ejaculate Brain Tumor Clinic: Mr. Watson Rodriguez is a 61 year old male investigated for right leg numbness and weakness (couldn'tstand on it) April 2020. Work up for lumbar spine cause non conclusive. 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 His right leg still numb and weak. High step gait to avoid dragging his right lower extremity. He had GK-SRS to the tumor (25Gy/5fx) from 08/16/2020-08/20/2020. Family Hx: Brother - mess attendant Component Latest Ref Rng & Units 12/24/2020 PSA Screening 0.00 - 2.59 ng/mL 1.70 Testosterone 193 - 824 ng/dL 589 Symptom Scores: KURT Score: 10 (Scores range from 1 to 25) A score of 20 or higher suggest a normal degree of erectile functioning. Low scores (10 or less) suggest moderate to severe ED. PMH: PAST MEDICAL HISTORY Diagnosis Date Acute myocardial infarction of lateral wall (HCC) 2012 s/p LAD stent Benign neoplasm of colon Benign neoplasm of meninges (HCC) 08/02/2020 Hyperlipidemia Seizure (HCC) focal motor PSH: PAST SURGICAL HISTORY Procedure Laterality Date COLONOSCOPY FLX DX W/COLLJ SPEC WHEN PFRMD 10/29/2009 Colonoscopy HEMORRHOID;BAND LIGAT, SNGL/MUL 12/2016 PAST SURGICAL HISTORY OF Left 04/2017 left knee arthroscopy - meniscus PAST SURGICAL HISTORY OF 01/2013 PTCA x 1 - LAD SH: Social History Tobacco Use Smoking status: Never Smoker Smokeless tobacco: Never Used Vaping Use Vaping Use: Never used Substance Use Topics Alcohol use: No Drug use: No FH: FAMILY HISTORY Problem Relation Age of Onset Colon Cancer Mother ascending large intestine removed 2009 at 80 years old Colon Cancer Maternal Grandmother portion lower colon removed 60 years old, colostomy REVIEW OF SYSTEMS: Review of Systems: Constitutional: No weakness, fever/chills, unexplained weight change Psychiatric: Stable mood Skin: No rashes or lesions HEENT: No blurred vision or double vision. No severe or worsening headaches. Sense of smell intact Neck: No masses or pain Chest: No shortness of breath or cough. No history of recurrent pneumonia, bronchitis, or sinustitis. CVS: No chest pains or palpatations. No history of cardiovascular disease. GI: No nausea, vomiting or abdominal pain Neurologic: No weakness or sensory changes : see above Musculoskeletal: Stable All other systems reviewed and noncontributory Allergy: Atorvastatin MEDICATIONS: Current Outpatient Medications Medication Sig Dispense Refill lacosamide (VIMPAT) 50 mg tab Take 200 mg BID (give the 50 mg tabs) 360 tablet 4 pentoxifylline ER (TRENTAL) 400 mg CR tablet Take 1 tablet by mouth three times daily with meals. 90 tablet 2 Vitamin E, dl, acetate, (VITAMIN E) 400 unit capsule Take 1 capsule by mouth three times daily. 90 capsule 2 levETIRAcetam (KEPPRA) 500 mg tablet Take 1 tablet by mouth twice daily. 90 tablet 2 dexAMETHasone (DECADRON) 2 mg tablet 2 mg the day prior to the flight, the day of the flight and the day after the flight. 15 tablet 2 midazolam (NAYZILAM) 5 mg/spray (0.1 mL) nasal spray Use 1 spray in one nostril as needed for seizures. May repeat dose in alternate nostril after 10 minutes based on response and tolerability. Only take for seizures lasting more than 3 minutes or more than 3 seizures in an hour 2 Each 2 CPAP Initiate Auto PAP @ 5-20 cm of water with humidification. Mask (per patient preference) optional chin strap (if indicated) , filters, tubing, humidifier and lifetime supplies. 1 Device 0 rosuvastatin (CRESTOR) 40 mg tablet Take 40 mg by mouth. Multivitamin capsule Take 1 capsule by mouth once daily. aspirin(ADULT LOW DOSE ASPIRIN 81 MG TAB, DELAYED RELEASE) Take one(1) tablet daily. 0 sildenafil (VIAGRA) 100 mg tablet Take 1 pill 1 hour prior to sexual activity on empty stomach 30 tablet 5 pyridoxine, vitamin B6, (VITAMIN B-6) 100 mg tablet Take 1 tablet by mouth once daily. 30 tablet 11 lacosamide (VIMPAT) 50 mg tab Take 4 tablets by mouth twice daily for 14 days. 112 tablet 0 clopidogrel (PLAVIX) 75 mg tablet Take 75 mg by mouth once daily. No current facility-administered medications for this visit. PHYSICAL EXAM: Ht 180.3 cm (5' 11) Wt 84.8 kg (187 lb) BMI 26.08 kg/m Body mass index is 26.08 kg/m . General Appearance/ Constitutional: Well developed, well nourished, and in no apparent distress HEENT: Normal Neck: Lymph Nodes: Normal Cardiac: Normal Breast: Not examined Pulmonary: Ascultation: Not examined Effort: Normal GI: Soft, Non-tender, Non-distended and Costovertebral angle tenderness absent Peripheral Vascular: Not examined Extremities: Cyanosis absent, Clubbing absent and Edema absent Skin: Normal Neurologic: Normal, Grossly non-focal, Alert and oriented and Affect appropriate PSA Screening (ng/mL) Date Value 12/24/2020 1.70 DIAGNOSES: 1. Impotence of organic origin - ICD9: 607.84, ICD10: N52.9 IMPRESSION/PLAN: Using Viagra 50mg, no longer effective Concern about interaction with epileptic meds and recently diagnosed with breast cancer +Pscyhogenic component - Couple would like to see sex therapy - Dr. Pro Garcia WNL PSA WNL, +Fhx of Machine Packer Will trial Viagra 100mg on empty stomach Also discussed Cialis 5mg daily, SHIVANI, ICI, IPP Dimitry Pedraza MD documented in this encounterMer[facility]06-[facility]22 History of Present illness Narrative* Maicol Ann, PT - 11/01/2021 1:42 PM EDT Episode Visit Count: 1 Therapist That Will Oversee The Plan Of Care: Maicol Ann PT Start of Care Date: 11/01/21 Onset Date: 08/18/21 Plan of Care Certification Date: 10/22/20 Patient Identified by Name and Date of : Yes REHABILITATION AND SPORTS THERAPY PHYSICAL THERAPY EVALUATION PLAN OF CARE: Assessment: Watson Rodriguez presents with chief complaint of ear complaints and cervical mobility that interferes with physical activities . He presents with impairments in posture and range of motion. Patient with complaints of tinnitus with possible cervicogenic component to symptoms. PROMIS (Patient-Reported Outcomes Measurement Information System) scores were reviewed and physicalfunction domain identified as within normal limits. Prognosis for therapy is Good due to: current objective clinical presentation;good overall health status;good support system/ coping skills . He will benefit from skilled therapy services to meet the goals established for this plan of care as noted below. Goals for Episode of Care: created on 11/01/21 through 01/30/22 - Independent in a Home Exercise Program. - Restore pain free cervical ROM to nil to min restriction to allow for normalized posture. Patient Goals: To get on a cervical HEP Planned Interventions, Frequency, and Duration: Current Frequency: 1x/month Duration: Two months Total Number of Visits Planned: 2 (as needed) Planned Treatment Interventions: Therapeutic exercise (69909);Manual therapy (53390);Neuromuscular re-education (92342);Self-assisted management (54285) Patient demonstrates good understanding of plan of care and treatment. The above goals and plan of care were discussed and agreed upon by patient/family. SUBJECTIVE: Watson Rodriguez is a 61 year old male seen today for ear complaints and tinnitus Patient in July 2020 dx with Menigioma. Had 5 Gamma Knife surgery in August 2020. During that started to develop ringing in bilateral Had a bad flare-up of lymphedema in the right leg and was given body exercises to help that. Then started to have seizures of right leg that is being medically managed. Hearing test (-) Cervical A lot of stiffness, tightness. Not able to turn head well. Headaches (-) Tinnitus constant currently 7/10 Patient Goals: To get on a cervical HEP Functional Limitations: physical activities Prior Level of Function: Independent without limitations Intake Information: Prescription present Previous Treatment: Physical Therapy Falls Interview: No positive findings with falls interview Vestibular Symptoms present for: months Symptom onset: sudden Pain: Pain Pain Level: 0 Post Treatment Pain Post Treatment Pain Level: 0 PROMIS Scales Higher is Better 09/12/2021 10/30/2021 10/30/2021 Phys Func - Score - - 44 (mild dysfunction) Phys Func - Percentile - - 27 % Social Roles - Score - - 47 (within normal limits) Social Role - Percentile - - 38 % GH Physical - Score 57.7 (Very Good) - 47.7 (Good) GH Physical - Percentile 78 % 41 % 41 % GH Mental - Score 59 (Excellent) - 50.8 (Very Good) GH Mental - Percentile 82 % 53 % 53 % Self-Eff Symptom - Score - - 38 (Low) Self-Eff Symptom - Percentile - - 12 % T-scores: mean of general population = 50. 5 points is clinically meaningfully difference Percentiles provide an indication of how the patient's score ranks in relation to the general population. Higher percentile rankings indicate better function/quality of life. 50th percentile is the average of the general population and indicates half of respondents had a worse score. Lower is Better 10/20/2020 10/30/2021 Fatigue - Score 60 (mild) 47 (within normal limits) Fatigue - Percentile 16 % 62 % T-scores: mean of general population = 50. 5 points is clinically meaningfully difference Percentiles provide an indication of how the patient's score ranks in relation to the general population. Higher percentile rankings indicate better function/quality of life. 50th percentile is the average of the general population and indicates half of respondents had a worse score. OBJECTIVE MEASURES WITH LEVEL OF FUNCTION: Posture / Alignment Posture: Forward head;Rounded shoulders Spine Observations R Cervical Spine Palpation Tenderness: (None) L Cervical Spine Palpation Tenderness: (None) Cervical Spine ROM Cervical ROM : Limitation AROM;Upper Cervical PROM Cervical Retraction AROM: Minimal limitation Cervical Flexion AROM: Normal Cervical Extension AROM: Minimal limitation Cervical Side-Bend Right AROM: Minimal limitation Cervical Side-Bend Left AROM: Minimal limitation Cervical Rotation Right AROM: Minimal limitation Cervical Rotation Left AROM: Minimal limitation OA ([place]-occipital) Flexion PROM: Minimal limitation AA ([place]-axial) Rotation PROM: Minimal limitation Thoracic Spine AROM Thoracic Extension: Minimal limitation Thoracic Rotation Right: Normal Thoracic Rotation Left: Normal TMJ Observations Jaw resting position: Within Normal Limits Trismus: No Right TMJ Palpation Tenderness: (None) Left TMJ Palpation Tenderness: (None) TMJ AROM Mandibular Opening: WNL Mandibular Protrusion: WNL Mandibular Lateral Excursion Right: WNL Mandibular Lateral Excursion Left: WNL Deviation with range of motion: No Crepitus: No UE and Cervical Strength Deep Neck Flexor Endurance: Fair R UE Strength: 4+/5 scapular L UE Strength: 4+/5 scapular Education: Education Learning Preferences: Demonstration;Explanation Barriers: None Learning/educational needs: Home exercise program;Plan of Care;Lymphedema Program Education Provided: Yes, see treatment interventions for education provided Education Provided To: Patient Education Mode/Type: Demonstration;Explanation/Discussion Response to Education/Teach Back: States/Identifies;Return Demonstration TREATMENT: PT Treatment Interventions: Therapeutic Exercise Evaluation Therapeutic Exercise: 1: Education of relation of cervical/TMJ to ear complaints 2: Issued the following HEP to patient 3: - Cervical retraction 10x 4: - Seated cervical flexion nods 10x 5: - W scapular retraction 6: - B hand upper cervical rotation stretch 7: Demonstrate to patient how to do cervical traction manually Skilled Intervention: Patient was educated in proper exercise technique and purpose for exercises. Reviewed and educated patient on additions/changes for home exercise program as above (*). Skilled judgment was provided in selection of appropriate interventions. Billing * Evaluation Low Complexity: 1 Unit Therapeutic Exercise Treatment Minutes: 35 Total Treatment Time Minutes (timed/untimed): 65 Maicol Ann PT documented in this [facility] Evaluation note* Diagnosis Recurrent seizures (HCC)- Primary Other forms of epilepsy and recurrent seizures without mention of intractable epilepsy Encounter for therapeutic drug level monitoring Encounter for therapeutic drug monitoring documented in this encounter [facility] History of Present illness Narrative* Yancy Centeno MD - 10/07/2021 11:33 AM EDT Images from the original note were not included. [facility] Follow up Virtual Consultation Referred by Dr. Trev Sutton [id number] [facility] [id number] We had a virtual visit conducted via video. I received consent from the patient to perform the visit using this platform. The patient is accompanied by his Damaris who is a nurse. 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 Work up for lumbar spine cause non conclusive. He had an episode of seizureand MRI brain showed left parasaggital dural based lesion 4.9 x3.5x4.2 cm with small nodule extending to right side. His right leg still numb and weakness. High step gait to avoid dragging his right lower extremity. He had GK-SRS to the tumor (25Gy/5fx) from 08/16/2020-08/20/2020. -His main concern is tinnitus, that is very bothersome and is affecting his quality of life quite significantly. IMPORTANT POINTS OF THE PATIENT'S HISTORY AND PROGRESSION: MENINGIOMA DIAGNOSIS: Mr. Wilder presented back on April 14, 2020, with a complaint of right leg numbness and weakness, and foot drop, this happened after the day before doing heavy lifting, by caring an object waitingaround 20 pounds, and shoveling snow. He was evaluated, initially back in April 2020 he had images of the lumbosacral region which were not revealing, but he was diagnosed with a presumptive radiculopathy at the level of 5, for which he underwent an EMG that was unrevealing also, and he went on to receive an L5 transforaminal injection without any help. He then was evaluated, and there is cerebrovascular neurology clinic, on July 19, 2020 as he was not getting better. At that time, because the event happened acutely, the working diagnosis of a stroke was given. Brain MR images performed on July 27, 2020 revealed rather a large parasagittal mass arising from the falx, involving both sides, more the left than the right, centered in the frontal regions and parietal lobe levels. Radiologically, this tumor was most compatible, with a meningioma. 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 This finding, correlated with the patient's presentation, and the weakness and paresthesias, may have been due to an acute event of a seizure back on April 14, 2020, however the leg weakness, also as a result of the tumor. The patient was referred to see Dr. Sutton, from neurosurgery at the brain tumor neuro-oncology Center. Dr. Sutton recommended gamma knife which he received, between August 16 through August 20, 2020. Antiepileptics: On Vimpat at 150 mg BID, he is to increase the dose next week. Patient is asking ifhe can stay on 150 mg BID and not to escalate to the higher dose as planned, as his seizures are better. Last Chemo: N/A Current Steroids dose: Per Dr. Sutton's recommendations: July 26 to August 09, 2021. Symptoms improved . On 08/15/21 Dr. Sutton recommended to resume Vit E and Trental, as these meds were put on hold whileon dex. History of Present Illness: Watson Rodriguez is a 61 year old male investigated for right leg numbness and weakness (couldn't stand on it) April 2020. Work up for lumbar spine cause non conclusive. He had an episode of seizureand MRI brain showed left parasaggital dural based lesion 4.9 x3.5x4.2 cm with small nodule extending to right side. His right leg still numb and weakness. High step gait to avoid dragging his right lower extremity. He had GK-SRS to the tumor (25Gy/5fx) from 08/16/2020-08/20/2020. -His main concern is tinnitus, that is very bothersome and is affecting his quality of life quite significantly. IMPORTANT POINTS OF THE PATIENT'S HISTORY AND PROGRESSION: 1-SEIZURES: last time Seizures February 24, 2021. He has been followed by neurologist Dr. Gris Neal. He had been on levetiracetam (LEV) since around July 2020 but then weaned off due to potential side effects and then as he was having more focal seizures, he was a started on it again on LEV December 2020. However his seizures were not under good control and that is why zonisamide was a started on March 10, 2021. He was then weaned off levetiracetam over the ensuing 4 weeks. The patient tells me that he still experiences events where he calls that his right leg goes numb but based on a more detailed description, it sounds as if he is having paroxysmal events of right legtonic posturing, and with some clonic component, that can last seconds to a coupe of minutes, this is still an issue. The most recent event where he had several events of focal seizures over a period of 24 hours, was on January 07, 2021. This occurred while driving to [place] to a work event. 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 He had to cancel his trip and landed int he ED at the [facility]. Based on careful neurological review of systems, I elicited, that the patient is still having, paroxysmal events, or focal seizures, characterized by tonic posturing of his foot that based on the description, it seems that he is foot was on dorsi flexion posturing, as well his toes flexed. This event can last a few seconds. They are also happening during his sleep, which is the same, that the sleep medicine physician described. The frequency of his events is 2-3 a week. This is still happening as of last week. He was given by his neurologist nasal spray midazolam as a rescue medication for breakthrough seizures but has not required to use it. DISCUSSION AND PLAN: Regarding seizure management, the patient wishes, to make the switch to lacosamide, and he has asked me, whether I could manage his seizures as well since I am doing the switch, and I told him that Chandrakant certainly happy to do share care, with his neurologist Dr. Neal. 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 Controlled with clonazepam, this, in the context of titration of Vimpat and tapering Zonegran RECOMMEND: CONTINUE THE TAPERING OF ZONEGRAN HIS TINNITUS IS BETTER AND THE GOAL WAS TO SEE IF TAPERING ZONEGRAN HIS TINNITUS WOULD IMPROVE AND IT DID. HOWEVER, HE HAS HAD MORE FOCAL SEIZURES, FOR WHICH I RECOMMEND INCREASING VIMPAT FOLLOWS: This is the titration schedule: Week 1 and 2: Vimpat 100 mg in am and 150 mg at night Week 3 and 4: Vimpat 150 mg BID Week 5 and 6: 150 mg in am and 200 mg at night Week 7 and 8: 200 mg BID. INTERIM EVENTS: JUL 19, 2021 His seizures have improved, since I saw him last, he has had only 2 sensory seizures. And no more clonic seizures. The patient wishes to stay at 150 mg BID of Vimpat and not to escalate the dose as planned, as he feels that his seizures have improved. He will call me back in 1 and 2 weeks to re-assess about the scalation. In principle if his seizures stopped in a sustained fashion then he may not need to increase the dose of VIMPAT any higher and then watch. However WHETHER HIS SEIZURES WILL STOPPED ON THE CURRENT DOSE remains to be seen. INTERIM EVENTS 08/23/2021 VV His Damaris present On 08/22/21 at around 12:30 Left leg moving, painful too. Clonazepam on the right side, as he reached over lost balance and fell in the floor, and lost clonazepam, seizure continued. Trying to find clonazepam, CPAP was down in the nose and had problem breathing, and CPAP pulled off, and seizure continued. Lost consciousness, Jolene tried to put clonazepam in mouth. This as been a violent seizure, aperiod of f 4 minutes was not aware of surroundings, but also his arm was jerking. Also shoulder and body all rigid. He said he could not breath. Kind of no control of body and when she found pill, mouth slightly open and teeth clamped on her finger. The whole event of seizure lasted 7 minutes. This was likely a convulsion. This is the first time he has an event as such. Changes made as above noted, he had ibuprofen the night before, but he has done this in the past, but this is the first time he has something like that. He is wondering whether this was the culprit of this seizure and or evenwhether the salty snacks he had may have contribute to it. He says, that when he was in steroids, he notices improvement on his symptoms, of right leg paresthesias. Upon stopping the steroids, those symptoms worsen. Now off Trental for a week, went off it to see if tinnitus would improve, but did not as of 08/22/21, also the Sunday night 08/20, took 200 mg Ibuprofen and Sunday, 200 mg TID. Took Ibuprofen for someleg pain as arose after doing PT. Having PT and into his 2nd week of aerobic exercise. Also had a headache. Also on Sunday08/20/21 had salty snacks. VERBATIM OF NOTES FROM TELEPHONE ENCOUNTERS FROM YESTERDAY 4/11/22 Telephone 08/22/2021 [facility] Yancy Centeno MD Neurology Seizure Reason for call Conversation: Seizure (Newest Message First) SS 08/22/21 3:40 PM Florencia Garrett RN routed this conversation to Nv Florencia Garrett RN 08/22/21 3:40 PM Note Returned call to patient. I spoke with him earlier regarding his seizure and I focused on what Dr Devlin had recommended. he is aware we are following at this time for his seizures and I can not address the tinnitus or Trental/Vitamin E and he should reach out to appropriate provider. -Increase Vimpat to [address] Devlin felt his seizure activity last night warranted an ER visit and should that happen again, he should go to her ER. Patient verbalizes an understanding and will follow these recommendations. He has a VV with Dr Devlin in the am Florencia Garrett RN, BSN Edi Coordinator [facility] DD 08/22/21 3:11 PM Seema Devine routed this conversation to Oliverio Centeno Bartley Seema Devine DD 08/22/21 3:11 PM Note General Call Caller : Patient Contact Reason for Call : Patient has taken 200 mg. Of Ibuprofen 24 hrs. After having seizure. Patient has also takenTrentol and vitamin E; medication is causing tinnitus, patient is experiencing background headaches Patient requesting return call ? Yes 08/22/21 9:31 AM Florencia Garrett RN routed this conversation to Nv NARCISA Gallagher RN 08/22/21 9:29 AM Note Returned call to patient. He states he went to bed last night (Sunday, August 21) at 11pm with CPAP mask. Woke up ~ 12/;30 due to violent twitching of his Right leg. He reached over to his nightstand to grab his Clonazepam but fell out of bed. His R arm was flailing (which has never happened). Apparently his slipped the Clonazepam in his mouth and he bit her. He does not recall anything andevents are as reported to him by his . Seizure lasted about 7 minutes and he woke up on the floor about 1-1/2 hours later and went to bed. His day leading up to the seizure was uneventful He did notice some R foot edema (which is better) and states he weighs himself everyday and his weight is up 5#. Previously on VImpat 150mg BID and increased on 08/10 to 200mg in am and 150mg in PM. Stopped Trental and Vitamin E due to worsening Tinnitus off for one week and resumed this morning. Today he woke up at 8am and ate breakfast. Feels weak but otherwise ok. He has a VV scheduled with Dr Devlin tomorrow at 9am Will discuss with Dr Devlin and contact patient with his recommendations. Florencia Garrett, RN, BSN Edi Coordinator [facility] DD 08/22/21 8:53 AM Seema Devine routed this conversation to Oliverio DevlinMiguelito Devine DD 08/22/21 8:53 AM Note Seizure Call Full Name of Person Calling : Watson Rodriguez Relationship to Patient : Self Contact Date of Seizure(s) : 08/21/21 Duration : 7 min. ER Visit : No History of Seizure : Yes 08/22/21 8:50 AM Watson Rodriguez contacted Seema Devine Additional Documentation Flowsheets: [facility] PDMP [facility] SCORES Encounter Info: Billing Info, History, Allergies Detailed Report He is feeling well today, started Vimpat 200 mg BID last night., 08/22/21. He denies any other symptom, no fevers, no new head pain, neck pain no confusion, no new numbness, tingling, no visual changes, no dysphagia, no speech difficulty or language difficulty. No falls/head trauma No new medications, No missing medications. He is wondering whether ibuprofen caused his seizure. DISCUSSION: I told the patient, that he would be unlikely for ibuprofen to be the sole culprit of his seizure as such. It is certainly concerning, that he had what appeared to be a focal seizure, with secondary generalization. The semiology, does describe that the , is that he began with a seizure, and his right side of the body especially his leg, with movements, that resemble tonic activity, and the patient became confused he was not arousable, and then he seems that, that his right arm and leg were jerking for several minutes, and then his left back side of the body became stiff, and then the whole body was stiff, the whole event lasted around 7 minutes, he then woke up slowly he was somewhat confused and it took him, several minutes to recover to feel back to his baseline. The family did not call the ambulance, but Damaris his , was able to give him, clonazepam, he says, that she tried to give it to him, sublingually, but then the patient, was clenching his teeth, and it bit her, but there was no skin laceration at all. No issues with choking, from the clonazepam. They have, bilateral nasal spray, but they did not have it readily available. The call yesterday, but that time the patient had been fine without any issues, and as above mentioned, no preceding symptoms to explain the patient's seizure. He is feeling fine today, without any problems, Feels much better, than what he feels when he has the focal seizures. The etiology of the patient's seizures, in the context, of nothing new, no febrile illnesses, no missing medication, no new medication, is probably, because the patient seizure threshold is low, and he is going through the process, or finding the optimal dose of antiepileptics, in this case he is on single antiepileptic drug such as Vimpat. I told the patient, that at this juncture, it would be important to have an image of the brain to exclude any unexpected changes such as a bleed. Or more edema. Furthermore, he will be optimal. The patient would have gone to the emergency department, however the patient's felt, that was not necessary as the patient was fine. My recommendations with the patient and his Damaris who is a nurse, is that his events were to happen again, to call 911. He keeps his , was making a case, to consider not taking him to the EDif this were to happen again, however I explained to Damaris and the patient, at length, the reasoning behind, calling 911 if this were to happen again, as if he has another seizure like this the patient will need to be fully evaluated, to make sure there is nothing underneath, that is lowering his seizure threshold. For now, based on the patient's and his 's account, and the fact that the patient feels fine today, without any symptomatology at all including no systemic symptoms such as respiratory, cardiac GI/ symptoms no other skin rashes. He is cognitive functions are also optimal, I think it would be not unreasonable to stay home. However, if he were to have more seizures including focal seizures togo to the ED or call 911 as I said. Furthermore, after discussing with the patient the pros and cons, of increasing the dose of Vimpat,but at this juncture in view that he was almost on full dose of this medication I recommended for the patient to be on an added antiepileptic. I reviewed with the patient, and his , the pros and cons of resuming Zonegran, however when I checked the interactions between this medication and Vimpat, there were the potential for cardiac arrhythmias, and in the context of the patient had an AK in 2012 (no known H/O arrhythmias) , although remote, I feel that it would be best to put him on another antiepileptic, that would have no such Interactions and potential for arrhythmias, adding Zonegran to Vimpat would to be for the long-term. Next, I check Keppra, and in view that he has been on this medication in the past and he feels, that there was good control as well of his seizures, and no significant side effects (although the patient felt that it may be causing tinnitus - but it does not seem to be the case by now) and I found no interaction between Keppra and Vimpat, and the mechanism, of either drug, are not similar (see below from UpToDate) I felt that adding Keppra would be the best agent. Drug Na+ channels Ca+ channels K+ channels Inhibitory transmission Excitatory transmission SV2A binding Lacosamide +++ Levetiracetam + + + + +++ I discussed the potential benefits and side effects of the above combination with the patient. He agrees to go on this agent for seizure control. I also told the patient, that in view that his seizure control is becoming somewhat complex, I haverecommended for him to be seen by the epilepsy neurologist, he had a [facility], and he agreed. The question also is whether the patient is having nocturnal seizures or subclinical seizures, and whether he would be a candidate, to be admitted to the epilepsy monitoring unit, but that can be decided by the epilepsy team. Also, to rule out, unexpected changes in his brain tumor for around that, but currently, I am asking him to have a CT of the head without contrast which I believe would be sufficient, to rule out these possibilities. I do not suspect that as the patient is back to his baseline, with no new symptomatology. Again, after the above explanations, the patient agreed with above recommendations, his as well. Once he gets his CT of the head, I will let him know the results, upon my review. He is going to [place], for a trip, between September 05 - , I will see the patient again, next week, 09/02/21, for short follow-up, prior to him going for his trip. present and I told him, that based on this, he will need to be extraordinarily careful while driving even though, he was released by physical therapy to drive. The reason I told him, is if he were to have a focal seizure involving his right leg, this could affect his driving. He also describes that after having those events, his right leg becomes weaker. This is however temporary lasting a few minutes. I also told him not to drive a car and I discussed with them the following: If You Have Had a Seizure Ask friends and family members to learn CPR. Also, tell them to do the following if you have a seizure: Clear the area to prevent injury. Position you on a flat, carpeted surface, if possible. Don t try to restrain you. Don t put anything in your mouth. Turn you onto your side if you start to vomit. Keep track of the date and time the seizure started, how long it lasted, whether or not you lost consciousness, a description of your body movements, what provoked the seizure (if known), and any injuries you suffered. Stay with you until you regain consciousness. Activities Avoid hazardous activities. A seizure under these conditions could lead to a fatal accident or injury to bystander. Do not use sharp moving tools. Do not swim or bathe alone, without a responsible adult who is knowledgeable about your seizures nearby. Do not climb to high places. Avoid heights. Wear a bicycle helmet when you ride a bicycle. NO DRIVING: You must be seizure free for at least 6 months in order to drive as an [place] resident. Each state has individual driving regulations. People with seizures are required to report their condition to their state's [place] of Motor Vehicles (BMV). However, states differ regarding the identity of the person required to report. Some states require doctors to report patients with epilepsy. Other states require patients to sign a simple form at the time of license application or renewal, declaring they will notify the BMV of changes in their health status or driving ability. When a person with seizures wishes to drive for the first time, he or she will need to fill out an application. When someone who already holds a mobile lounge driver or operator's license is newly diagnosed with seizures, that person is responsible for notifying the BMV. Individuals with uncontrolled seizures have a higher risk of accidents if they drive. That is why doctors advise patients with seizures that they should not drive until their seizures are under control. If a well-controlled patient has a seizure after the doctor makes a medicine change, the patientmay or may not be able to continue driving. Seizures are unpredictable, and even a small seizure at the wrong time can lead to an injury or . The best solution, if possible, is to get the seizures under control. The best way to do this isto work together with your doctor to get on the right treatment and to honestly discuss your seizures with your health care provider. This information is subject to change. Please contact your state's BMV office for the most current information. A mobile lounge driver or operator must submit a satisfactory medical statement from their physician/provider and/or submit passing examination scores for a partial or complete mobile lounge driver or operator license examination to the [place]. When to Seek Medical Attention Tell your family members or friends to call 911 right away if you have: Loss of consciousness--you do not regain consciousness soon after seizure activity Shortness of breath or stopped breathing. Seizure that lasts more than 2 minutes. Seizure that is severe (choking, difficulty breathing, bluish color skin) Two or more seizures in a row. Seizure accompanied by fever or rash Injury following seizure You are or diabetic Otherwise, have them call your doctor immediately if you have: Seizures that are getting longer and worse. Seizures that are different from those you ve had in the past. Change in seizure frequency INTERIM EVENTS: 09/02/[address] from 08/25/21 shows no new changes, admitting that the modality of images is different when compared to most recent MRI's. He has not had seizures with the new regimen of AED, Vimpat and Keppra. He says that he is going through stress as his was recently diagnose with breast CA and she will undergo treatments. Damaris his also shared this news. Both said hat although these are difficult times for the family that they are taking this news the best they can and are hopeful that everything will be Ok. INTERIM EVENTS OCTOBER 07, [address] Sergo Joseph, Epilepsy Fellow and Dr. Catarino Camacho, staff epileptologist. EPILEPSY STAFF NOTE: I saw the patient at Fellow's clinic Brief summary: Patient has significant history for CAD c/b AK s/p stent in 2012. Onset of Right foot weakness and distal leg heaviness and numbness in Apr, subsequent brainMRI 08/11/2020 showed left parietal vertex meningioma and mass effect on left paracentral lobule, s/p GK-SRS in August of 2020. Initially he was treated with Levetiracetam 1g bid then 1500 mg bid for sensory motor like seizures. Typical seizure like episodes: painful cramping in the right foot and traveling upward. [facility], during admission, when LEV was held, he had a few episodes of right legtwitching while BEM of a few days did not show any epileptiform discharges or seizures. At end of Feb 2021 he was transitioned from LEV to Zonisamid (?LEV caused tightening of right leg), he could not tolerate Zonisamide (worsening tinnitus). In May he used KLN frequently for seizure like episodes prior to Vimpat. While on Vimpat 200 mg/150 mg, he had a big seizure (August 22, 2021) of right leg jerking and twitching, unable to reach his KLN, the seizure progressed to right arm with LOC. Afterwards, Vimpa increased to 200 mg bid, LEV 500 mg bid restarted. LEV 500 mg bid restarted for additional seizure control. Other issues, right leg heaviness which is daily issue, can last 2-6 hours, if he ambulates or elevate the right leg, he will feel better. PLAN: As outlined int the fellow note: Check levels of ASMs EKG for TX interval Continue current Levetiracetam (add Vit B6 100 mg per day) and Lacosamide for now Use KLN for seizures, not for leg weakness (the features related to right leg heaviness as mentioned above is more related to tumor). No driving due to recent seizure in August 2021, this needs 6 months. Prior to be able to drive, he needs PTOP assessment of ability to drive due to right leg heaviness. The patient prefers to continue follow up with his qamar tumor neurologist, Dr. Centeno, and he prefers us to communicate about seizure medication management with Dr. Messer, instead of seeing another neurologist. Catarino Camacho MD PhD Staff, Epilepsy Center [facility], [place] - RECOMMENDED BY EPILEPSY NEUROLOGY EKG DONE ON 10/05/21 AND IS NORMAL -ASM (AED), levels in blood ordered. -VIT B6 - already prescribed. -Continue current AED, LEV and LAC Has had 3 events of paresthesias in his right leg on September 04, September 23, possible ictal events. Has made some changes in the schedule of his Keppra, and it seems that when he takes it at noon theevents of right leg paresthesia is less frequent and less prominent. -Still tingling in the right foot, after some exercising. Yesterday more as he had an active date. Usually comes on the next day. He [facility] for possible vascular issues, but I think it is as a result of the qamar tumor. 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 He went off dexamethasone by September 12, 2020. -He has been on Tentral (pentoxifylline) and vitamin E since November 2020 and in relationship to his tinnitus, the question Mr. Rodriguez has is whether these medications could cause or add to his tinnitus. Based on my literature search and by looking at the monograph there is no side effects causing tinnitus and in fact I found in the literature reporting some clinical trial that Tentral has been used to treat tinnitus (International Journal of Clinical Pharmacy (2018) 40:1335 1341) DISCUSSION AND PLAN: Regarding, whether pentoxifylline is causing the tinnitus, I told the patient, that I did not find evidence of this. Regarding presumed radionecrosis, he is still on Tentralas well vitamin E per Dr. Michel whitley, from radiation oncology, recommendation. This seems that has allowed him to go OFF steroids. I discussed with the patient, that there are other agents that could be used, to alleviate the possibility of edema from radiation induced necrosis, that is, bevacizumab. However, at this given time,we will not consider this medication, but that can be considered in the future if need be. The reasons to use it, is that conservative measures like the use of low-dose steroids, or the continuation of temporal and vitamin E are not helpful. Also bevacizumab has been used, to improve progression free survival in patients with meningioma. INTERIM EVENTS: JUL 19, 2021 MRI from 07/18/21, shows stable tumor and edema. The patient asked whether he should stop Vitamin E and Tentral, and whether he is to be on other medicating to help the edema, like steroids, and or other agent he was told can be used for radionecrosis, and he recalls been Avastin. I told him that form my perspective his seizures's are under better control, and that from my perspective I feel that escalating therapy for his radionecrosis may not be warranted at this time. Also,the use of steroids will have potential deleterious side effects. Regarding Avastin, at this time Dimas not believe this is needed as he is improving regarding his symptoms. He says that he will ask Dr. Sutton at his next appointment, next week, and will ask him about theabove. Recommend continue surveillance. INTERIM EVENTS: OCTOBER 07, 2021 He is off Dexamethasone On Trental and Vit E. 3-TINNITUS Important historical note: On March 10, 2021 zonisamide was started and then he was weaned off levetiracetam over the ensuing 4 weeks -He feels that his tinnitus, although it has been an issue before, it has become more prominent upon starting zonisamide. He also has hyperacusia, and photosensitivity. This symptom does affect her daily activities, including at the family and professional level. 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 -The reason why he was started on zonisamide was because his seizures were not under control with levetiracetam. Zonisamide was titrated and his seizures have been under the best control possible, however as I said his tinnitus worsened significantly. -He has been seen by neuro-otology with Dr. Jamie Ortiz, who has been evaluating him for his tinnitus and for the neuro-otology perspective. DISCUSSION AND PLAN: The patient feels that the worsening of the tinnitus is related to the initiation of Zonegran (zonisamide). As per the patient, there is a direct correlation between his severe tinnitus, upon initiation of zonisamide. I reviewed the literature, and based on the monograph, the prevalence of tinnitus, in patients on zonisamide is around 1%. However, a report, published in the Journal of neurology in 2013 (June 25, 2012; 80 (7 Supplement) July) they found, and a small cohort, that indicates that this can happen in 17% of the studied subjects, hence, tinnitus may be more prevalent than it isthought. Although the patient seizures, has been better controlled on zonisamide and his mobility on the right side had improved, the patient is quite bothered by the tinnitus, and is affecting his life, in every way including socially, and professionally. The patient wishes to go off zonisamide and agrees to be on a different medication for his seizures. Initially, we thought to put him back on levetiracetam, however historically, he was still having seizures on this AED. Regardless of whether there is scientific support that Zonisamide can cause tinnitus, the patient is quite bothered by it, and it seems, that the only factor that he can think of, and also per my review of all of the potential causes, I think is not unreasonable, to try to wean him off zonisamide and place him on another antiepileptic. I discussed with the patient extensively the pros and cons of doing a switch to another antiepileptic. The main concern would be that he could have recurrent seizures, that could be worse. It will beimportant, for him to have rescue medication readily available to be used in case he has seizures, that may be more prolonged, more severe, or more frequent. He will use midazolam nasal spray which he already has. We also discussed other options, such as clonazepam sublingual which is effective as well. The patient preferred to use the sublingual form of clonazepam as a rescue medication for breakthrough seizures. I discussed a few options, and lacosamide, or Vimpat comes to mind. This medication, has little interactions with other medicaitons, and also has less effect on the mood. Also has probably a different mechanism, than Levetiracetam. For instance, and levetiracetam, acts on calcium channel, and potassium channel causing inhibitory transmission, whereas lacosamide acts on the sodium channels. Zonisamide, acts on sodium but also on calcium channel. Hence, hypothetically using a different drug acting on a different channel, may be more effective than going back to levetiracetam. I discussed with the patient extensively, the potential benefits and side effects of lacosamide. I discussed, the potential for seizures that could be more prolonged or severe in the context of switching him from 1 antiepileptic to another. I discussed with the patient, that he will need to be on both antiepileptics for at least a week and then once he is on the lacosamide for a week, we will wean him off zonisamide over the ensuing weeks, to avoid precipitating seizures, or withdrawal seizures. I discussed the potential benefits and side effects of lactamide (Impact) with the patient. I also reviewed interaction Of lacosamide with with zonisamide it is rated as a Risk Rating C: category, that is it is advised to monitor therapy with no absolute contraindication, but it is advised to watchfor any added effects as both drugs act on Na channel and this is in relation to potential cardiac effects. As the patient will be on both agents for a short period of time, the effect is to be minimal, yet any potential cardiac symptom ought to be reported by Mr. Rodriguez. The patient agrees, to the switch with the hope, that his tinnitus is going to improve, he is aware, that there is no guarantee that his tinnitus is going to be better, but he wants to try. INTERIM EVENTS: JUN 30, 2021 His Tinnitus has improved. INTERIM EVENTS: JUL 19, 2021 His Tinnitus has regressed now grading it at 8/10. The tinnitus is not pulsatile. INTERIM EVENTS OCTOBER 07, 2021 Tinnitus - Still present Says that Dr Ortiz his Neuro-Electrical Project Manager told him at one point that he could benefit form a vestibular rehab PT. He asked em to contact Dr. Ortiz asking him whether he could make that referral again. I sent a message to Dr. Ortiz asking him this,a dn he responded that he will take care of it. 4-DRIVING: He says that recently he was released, to drive a car, by the rehabilitation colleagues.He said that the physical therapist evaluated him, and he was deemed, that he can drive, in the context, that he has no problems mobilizing his right leg properly. The issue is in addition that he has some motoric and coordination issues with his right leg, also he is having paroxysmal events, of focal seizures on his right foot which could potentially affect his driving. I touched on this with the patient, and his present and I told him, that based on this, he will need to be extraordinarily careful while driving even though, he was released by physical therapy to drive. The reason I told him, is if he were to have a focal seizure involving his right leg, this could affect his driving. He also describes that after having those events, his right leg becomes weaker. This is however temporary lasting a few minutes. 08/23/21 On 08/22/21 had an event of a convulsion I also told him not to drive a car and I discussed with them the following: If You Have Had a Seizure Ask friends and family members to learn CPR. Also, tell them to do the following if you have a seizure: Clear the area to prevent injury. Position you on a flat, carpeted surface, if possible. Don t try to restrain you. Don t put anything in your mouth. Turn you onto your side if you start to vomit. Keep track of the date and time the seizure started, how long it lasted, whether or not you lost consciousness, a description of your body movements, what provoked the seizure (if known), and any injuries you suffered. Stay with you until you regain consciousness. Activities Avoid hazardous activities. A seizure under these conditions could lead to a fatal accident or injury to bystander. Do not use sharp moving tools. Do not swim or bathe alone, without a responsible adult who is knowledgeable about your seizures nearby. Do not climb to high places. Avoid heights. Wear a bicycle helmet when you ride a bicycle. NO DRIVING: You must be seizure free for at least 6 months in order to drive as an [place] resident. Each state has individual driving regulations. People with seizures are required to report their condition to their state's [place] of Motor Vehicles (BMV). However, states differ regarding the identity of the person required to report. Some states require doctors to report patients with epilepsy. Other states require patients to sign a simple form at the time of license application or renewal, declaring they will notify the BMV of changes in their health status or driving ability. When a person with seizures wishes to drive for the first time, he or she will need to fill out an application. When someone who already holds a mobile lounge driver or operator's license is newly diagnosed with seizures, that person is responsible for notifying the BMV. Individuals with uncontrolled seizures have a higher risk of accidents if they drive. That is why doctors advise patients with seizures that they should not drive until their seizures are under control. If a well-controlled patient has a seizure after the doctor makes a medicine change, the patientmay or may not be able to continue driving Seizures are unpredictable, and even a small seizure at the wrong time can lead to an injury or . The best solution, if possible, is to get the seizures under control. The best way to do this isto work together with your doctor to get on the right treatment and to honestly discuss your seizures with your health care provider. This information is subject to change. Please contact your state's BMV office for the most current information. A mobile lounge driver or operator must submit a satisfactory medical statement from their physician/provider and/or submit passing examination scores for a partial or complete mobile lounge driver or operator license examination to the [place]. When to Seek Medical Attention Tell your family members or friends to call 911 right away if you have: Loss of consciousness--you do not regain consciousness soon after seizure activity Shortness of breath or stopped breathing. Seizure that lasts more than 2 minutes. Seizure that is severe (choking, difficulty breathing, bluish color skin) Two or more seizures in a row. Seizure accompanied by fever or rash Injury following seizure You are or diabetic Otherwise, have them call your doctor immediately if you have: Seizures that are getting longer and worse. Seizures that are different from those you ve had in the past. Change in seizure frequency. 5-Right leg edema: She tells me, that his right leg edema is being there, is some puffiness, in association with the weakness. She tells me, that back in September, because of his edema he was told that he was lymphedema and he had DVT which revealed to be negative for DVT. He was placed on Lasix for 4 days, and also dexamethasonefor a week by Dr. Aviles and eventually, the edema will resolve over a week or so. Seems, that since changes in medications antiepileptics, and his seizures have been under better control he seems that his leg edema is better. I think, this needs to be evaluated, particularly by his PCP. The etiology could be dysautonomia because of his right leg weakness from the brain tumor but othercauses are to be excluded. DISCUSSION AND PLAN: I told the patient, to please seek attention by his PCP regarding his leg edema. Vascular - After Rx DVT - NEG DVT INTERIM EVENTS OCTOBER 07, 2021 He will ask again to his PC about his paresthesias whether there is a vascular component to it. 6-Obstructive sleep apnea. Continues with the, that now that he is using his CPAP more consistentlythis is making him sleep better but his tinnitus is not bothering her at all. DISCUSSION AND PLAN: I encouraged the patient, to continue using his CPAP, which certainly, will help his overall healthin addition to his sleep. 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 DISCUSSION AND PLAN: Here there may be a component of Phuong's paralysis, in addition, to the weakness due to the brain tumor, but it is interesting to see that when his seizures were under control, his leg weakness improved. As the patient is still having focal seizures, I am wondering whether that sets him back, in terms, of motoric improvement. I will monitor the patient; however, if he continues having focal seizures, I think he would be a good candidate for epilepsy monitoring unit admission to exclude him having more seizures than what he realizes. 8: Possible spasticity of this right lower extremity. DISCUSSION AND PLAN: Although I did not examine the patient, I wonder whether he has a level of the spasticity that could be alleviated, by Botox injections. Here I will ask Dr. Neal to define whether Botox injections are an option for the patient, to improve his mobility. INTERIM EVENT JUN 30, 2021 On today examination, I did not identify a high degree of spasticity in his right lower extremity. 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 However, low threshold, to do vascular images and low threshold for suspicion for the possibility, of venous infarct. In the end the patient and verbalized understanding of the above, he and his had questions which I believe I answered to their satisfaction and had no further questions or concerns for the moment, but I encourage them to call the [facility] with any questions or concerns. INTERIM EVENTS: JUN 30, 2021, I will ask him to have a MR Venogram to exclude sinus thrombosis which could be causing venous congestion and causing leg weakness, and perhaps lowering seizure threshold. Yet I have not seen in the MRI's worsening edema in the adjacent tumor area. INTERIM EVENTS: JUL 19, 2021. The patient had his MRV and indeed shows the occlusion at the tumor level but this image was able to identifying collaterals. Discussion: As of now he persistent edema surrounding the tumor are is presumably from the tumor, one question is whether the edema is also or from the occluded superior sagittal sinus, yet the MRV shows collateral with blood flow anterior and posterior to the occluded SSS. The question is if the edema is also as a function of the occluded SS, then this may add to his symptoms, such as causing seizures/right lower extremity paresthesias. Although this is possible, the edema has been stable, and typically venous congestion from venous sinus thrombosis is progressive with no appropriate therapy (anticoagulation). I will discuss this case with one of my colleagues vascular neurologist to seek opinion whether other work up is needed, to assess venous flow etc., or other therapeutic interventions. He is on dual antiplatelets, aspirin and Plavix, for cardiac reasons. He says that he was recommended by his scada technician to stop Plavix 2 years ago, but he decided to stay on it, in addition to aspirin, as when the COVID-19 pandemic hit, he learned that this virus could cause blood clots hence out of him being cautious he decides to stay on both antiplatelet agents, and he is still on both. He is asking me whether he should remain ion both antiplatelets due to the occlusion of his SSS. I told him that I will discuss his case with one of my colleagues vascular neurologists and I will getback to him. I will also ask my colleague whether the occlusion of the SS from the tumor could be symptomatic. July 26, [address] Colton Mason to obtain input regarding the stenosis of the superior sagittal sinus from the tumor, in the context, that the MRV shows good collaterals anterior and posteriorly, andin the context that the patient has worsening paresthesias in his right lower extremity, upon physical activity.. The question is whether the stenosis, would be symptomatic, and also whether the edema around the tumor will be also from venous congestion. Dr. Colton Mason felt, that, also per his review the images, as well, that he would be unlikely for the stenosis of the surgical site the sinus to be symptomatic, and that the edema, is probably not related to the venous stenoses as the edema will be more prominent by now and it would show progressive venous congestion, and typically this will show also anteriorly. In summary, Dr. Colton Mason felt that the either occluded or stenosed SSS, is not symptomatic atthis time, and no need for any therapeutic or other diagnostic interventions. I also asked for his input regarding that the patient is on dual antiplatelets, that is, aspirin and Plavix, and that he has been, on both medications for 2 years per his own decision for the past 2 years, even though his scada technician told him, that he stop Plavix 2 years ago, and whether he ought to take both antiplatelets, because of his superior sagittal sinus occlusion or stenosis. Dr. Pinedo felt, that the patient, requires no therapeutic interventions, neither other diagnostic interventions, and that he would not recommend him to be on 2 antiplatelets, or not even on 1, if he did not need to be on antiplatelets for other reasons. However, the decision for the patient to continue on both antiplatelets, will be a decision to be made by his scada technician. Acknowledging, that thepatient was told by his scada technician to stop dual antiplatelet therapy 3 years ago and to continue only on aspirin. I called Mr. Rodriguez and reviewed the above with him. He tells me, that he saw his scada technician andthat he was told, that he does not need to be on dual antiplatelets and that he could go of his Plavix. He says that his scada technician is going to do a stress test in the future. 10: Right lower extremity paresthesias. DISCUSSION He says that he has this almost persistent, sensation of tingling and needles sensation in his right foot, which it gets more pronounced when he stops on his foot. It is rather constant and is not paroxsymal in nature. He is wondering whether there is a pathology in his foot/leg. I told him that told him that this symptom is likely from the tumor, and it would be unlikely that he has a lumbosacral pathology to a peripheral process to explain this. He had a lumbar MRI in May 2020, and to my eye I see no significant pathology, and the report also shows no significant neuro foramina narrowing orspinal canal stenosis, other than some mild narrowing of the neural foramina form spurring at L4-5. 11 - In the context of a brain tumor with cerebral edema and history of seizures: 08/23/21 I told the patient, that according to the best knowledge, and also the guidelines from the [facility] for oncology directly issues, that cannot with patients with her physical status, upon flying of plane, that includes worsening of seizures, worsening of cerebral edema, and thromboembolism. The patient says that he is going to fly to [place] which is a short flight. However I recommended the following: PLAN: In order to decrease the possibility of steroid edema for flying, empirically recommended for the patient to take dexamethasone 2mg daily, the day prior to the flight, the day of the flight, and the day after the flight. I told him, that he suffered an empiric approach but this is my practice. 12 - MENINGIOMA DIAGNOSIS: Mr. Wilder presented back on April 14, 2020, with a complaint of right leg numbness and weakness, and foot drop, this happened after the day before doing heavy lifting, by caring an object waitingaround 20 pounds, and shoveling snow. He was evaluated, initially back in April 2020 he had images of the lumbosacral region which were not revealing, but he was diagnosed with a presumptive radiculopathy at the level of 5, for which he underwent an EMG that was unrevealing also, and he went on to receive an L5 transforaminal injection without any help. He then was evaluated, and there is cerebrovascular neurology clinic, on July 19, 2020 as he was not getting better. At that time, because the event happened acutely, the working diagnosis of a stroke was given. Brain MR images performed on July 27, 2020 revealed rather a large parasagittal mass arising from the falx, involving both sides, more the left than the right, centered in the frontal regions and parietal lobe levels. Radiologically, this tumor was most compatible, with a meningioma. 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 This finding, correlated with the patient's presentation, and the weakness and paresthesias, may have been due to an acute event of a seizure back on April 14, 2020, however the leg weakness, also as a result of the tumor. The patient was referred to see Dr. Sutton, from neurosurgery at the brain [facility]. Dr. Sutton recommended gamma knife which he received, between August 16 through August 20, 2020. Ended steroid taper Current AED Dose: in the process of titration of Vimpat at 200 mg in am And 150 mg HS now (08/23/21). Off Zonegran Therapy Status Data Form Past Medical History: PAST MEDICAL HISTORY Diagnosis Date Acute myocardial infarction of lateral wall (HCC) 2012 s/p LAD stent Benign neoplasm of colon Benign neoplasm of meninges (HCC) 08/02/2020 Hyperlipidemia Seizure (HCC) focal motor Past Surgical History: PAST SURGICAL HISTORY Procedure Laterality Date COLONOSCOPY FLX DX W/COLLJ SPEC WHEN PFRMD 10/29/2009 Colonoscopy HEMORRHOID;BAND LIGAT, SNGL/MUL 12/2016 PAST SURGICAL HISTORY OF Left 04/2017 left knee arthroscopy - meniscus PAST SURGICAL HISTORY OF 01/2013 PTCA x 1 - LAD Family History: FAMILY HISTORY Problem Relation Age of Onset Colon Cancer Mother ascending large intestine removed 2008 at 80 years old Colon Cancer Maternal Grandmother portion lower colon removed 60 years old, colostomy Social History Tobacco Use Smoking status: Never Smoker Smokeless tobacco: Never Used Vaping Use Vaping Use: Never used Substance Use Topics Alcohol use: No Drug use: No Allergies: Atorvastatin Current Outpatient Medications Medication Sig pentoxifylline ER (TRENTAL) 400 mg CR tablet Take 1 tablet by mouth three times daily with meals. YES Vitamin E, dl, acetate, (VITAMIN E) 400 unit capsule Take 1 capsule by mouth three times daily. YES pyridoxine, vitamin B6, (VITAMIN B-6) 100 mg tablet Take 1 tablet by mouth once daily. NO lacosamide (VIMPAT) 50 mg tab Take 4 tablets by mouth twice daily for 14 days. lacosamide (VIMPAT) 50 mg tab Take 200 mg BID (give the 50 mg tabs) levETIRAcetam (KEPPRA) 500 mg tablet Take 1 tablet by mouth twice daily. dexAMETHasone (DECADRON) 2 mg tablet 2 mg the day prior to the flight, the day of the flight and the day after the flight. STOP midazolam (NAYZILAM) 5 mg/spray (0.1 mL) nasal spray Use 1 spray in one nostril as needed for seizures. May repeat dose in alternate nostril after 10 minutes based on response and tolerability. Only take for seizures lasting more than 3 minutes or more than 3 seizures in an hour sildenafil (VIAGRA) 50 mg tablet Take 1 tablet by mouth as needed. CPAP Initiate Auto PAP @ 5-20 cm of water with humidification. Mask (per patient preference) optional chin strap (if indicated) , filters, tubing, humidifier and lifetime supplies. rosuvastatin (CRESTOR) 40 mg tablet Take 40 mg by mouth. YES Multivitamin capsule Take 1 capsule by mouth once daily. YES clopidogrel (PLAVIX) 75 mg tablet Take 75 mg by mouth once daily. YES aspirin(ADULT LOW DOSE ASPIRIN 81 MG TAB, DELAYED RELEASE) Take one(1) tablet daily. YES No current facility-administered medications for this visit. Review of systems: SEE ABOVE Constitutional: No recent fever or weight loss. Eyes: No history of glaucoma or cataracts. ENMT: No recent ear infection, nasal congestion, mouth sores or sore throat. See HPI CV: No history of chest pain, palpitations Right leg swelling, SEE HPI Respiratory: No history of SOB, asthma or recent cough. Gastrointestinal: No history of nausea, vomiting, dysphagia or abdominal pain. Genitourinary: No history of hematuria or dysuria. Musculoskeletal: No complaint of arthritis Has Right leg weakness, see HPI. Psychiatric: No history of hallucinations He feels somewhat anxious and also down emotionally as his neurological disability is affecting hisQOL. ROS Neurological: SEE HPI No complaint of headache. Complaint of tinnitus, bilateral . No complaint of decreased hearing. No complaint of diplopia. No complaints of decreased visual acuity. Complaint of RT arm/leg numbness. Problem with RT limb coordination. No complaint of syncope Complaint of seizures, see HPI No loss of consciousness. Objective No physical Exam was performed, as this was the virtual visit, however on observation the patient appeared in no distress, he was eloquent, no language dysfunction that I could elicit, no cranial nerve abnormalities are grossly on observation. Karnofsky performance status: 70 - Cares for self, unable to carry on normal activity or to do work. ECOG performance status: 1 - Restricted in physically strenuous activity but ambulatory and able tocarry out work of a light or sedentary nature, e.g., light house work or office work. PHQ 2 and 9 Total Scores 09/12/2021 PHQ-2 Score 0 PHQ-9 Score 0 Labs: CBC Latest Ref Rng & Units 06/24/2021 07/04/2021 08/31/2021 WBC 3.70 - 11.00 k/uL 3.40(L) 4.45 6.76 RBC 4.20 - 6.00 m/uL 4.79 4.69 4.83 HEMOGLOBIN 13.0 - 17.0 g/dL 15.2 14.7 15.2 HEMATOCRIT 39.0 - 51.0 % 43.2 42.4 44.3 MCV 80.0 - 100.0 fL 90.2 90.4 91.7 MCH 26.0 - 34.0 pg 31.7 31.3 31.5 MCHC 30.5 - 36.0 g/dL 35.2 34.7 34.3 RDW-CV 11.5 - 15.0 % 11.8 11.7 11.6 PLATELETS 150 - 400 k/uL 166 170 221 MPV 9.0 - 12.7 fL 8.7(L) 8.3(L) 8.2(L) BASO% % 0.3 0.2 0.3 ABS NEUT (ANC) 1.45 - 7.50 k/uL 2.06 3.02 5.04 ABS LYMPH 1.00 - 4.00 k/uL 0.87(L) 0.84(L) 0.96(L) ABS MONO <0.87 k/uL 0.43 0.55 0.68 ABS EOSIN <0.46 k/uL 0.03 <0.03 <0.03 ABS BASO <0.11 k/uL <0.03 <0.03 <0.03 NRBC /100 WBC - - 0.0 DIFF TYPE - Auto Diff Auto Diff - CMP Latest Ref Rng & Units 12/24/2020 01/08/2021 06/24/2021 SODIUM 136 - 144 mmol/L 137 139 134(L) POTASSIUM 3.7 - 5.1 mmol/L 3.9 4.0 4.1 CHLORIDE 97 - 105 mmol/L 104 102 101 CO2 22 - 30 mmol/L 24 26 27 GLUCOSE 74 - 99 mg/dL 95 93 89 BUN 9 - 24 mg/dL 15 14 12 CREATININE 0.73 - 1.22 mg/dL 1.05 1.09 1.10 EGFR-ALL OTHER RACES . >60 >60 >60 EGFR- - >60 >60 >60 PROTEIN, TOTAL 6.3 - 8.0 g/dL 6.8 6.7 6.3 ALBUMIN 3.9 - 4.9 g/dL 4.5 4.6 4.5 CALCIUM, TOTAL 8.5 - 10.2 mg/dL 9.6 9.5 9.2 BILIRUBIN, TOTAL 0.2 - 1.3 mg/dL 0.7 0.4 0.6 AST 14 - 40 U/L 20 28 18 ALT 10 - 54 U/L 21 27 21 ALKALINE PHOSPHATASE 38 - 113 U/L 69 71 77 Final Pathology: N/A PATIENT HAS NOT HAD A BIOPSY OF HIS BRAIN TUMOR. Imaging: MRI Report MRV BRAIN WO/W IVCON Exam End: 07/18/2021 11:11 AM (Final result) Narrative: * * *Final Report* * * DATE OF EXAM: Jul 18 2021 11:11AM [facility] 0336 - MRV BRAIN WO/W IVCON / PROCEDURE REASON: Meningioma (HCC) * * * * Physician Interpretation * * * * EXAMINATION: MRI BRAIN WO/W IVCON, MRV BRAIN WO/W IVCON CLINICAL HISTORY: Left parasagittal meningioma s/p GKRS. TECHNIQUE: Intracranial mass brain MRI protocol without and with contrast including diffusion images. Intracranial 3D oblique [id number] MRV and gadolinium enhanced coronal T1 subtracted volumetric acquisition of the intracranial vessels. 3D maximum intensity projection images were created, reviewed and archived. MQ: [id number] Contrast: 17 mL Dotarem IV COMPARISON: MRI brain 04/22/2021, 07/27/2020 imported CTA head RESULT: MRI BRAIN Acute Change: There is no evidence of an acute intracranial process. Hemorrhage: No evidence of prior parenchymal hemorrhage on the gradient echo images. Mass Lesion/ Mass Effect: Stable well demarcated extra-axial homogenously enhancing T2 mildly hyperintense, FLAIR predominantly isointense, T1 mildly hypointense mildly diffusion restricting 5.0 x 4.3 x 3.9 cm centered over the posterior falx eccentric to the left with mass effect on the left paracentral lobule and left greater than right superior parietal lobules. There is underlying invasion of the superior sagittal sinus with obscuration of the superior sagittal sinus flow void in this region. Stable degree and extent of the T2/FLAIR hyperintensity surrounding the lesion in the posterior left frontal and parietal white matter with no apparent signal changes on the contralateral side. Chronic Change: The white matter is otherwise within normal limits of signal intensity for age. Parenchyma: No significant volume loss for age. Ventricles: Normal caliber and morphology. Skull Base: Hypothalamic and pituitary region are grossly normal. Craniocervical junction is normal. No significant marrow replacement process. Vasculature: Obscuration of the flow void the superior sagittal sinus in the region of infiltrating meningioma. Otherwise the major intracranial arterial structures, and dural venous sinuses show typical flow void, suggesting patency by spin echo criteria. Other: Minimal retained T2 hyperintense secretions in a single left anterior ethmoid air cell. Trace mucosal thickening along the inferior margin of the left maxillary sinus. The visualized paranasal sinuses and mastoid air cells are otherwise clear. The orbits and extracranial soft tissues are unremarkable. MRV There is loss of flow within the superior sagittal sinus adjacent to the large meningioma on the [id number] images, although the portions of the superior sagittal sinus both anterior and posterior to this have preserved flow signal. There is similar loss of postcontrast enhancement of the segment on the gadolinium-enhanced images. Suspect collateralized flow along the margins of the mass given the appearance on the prior CTA and preserved flow within the surrounding superficial cortical veins and preserved flow signal both anterior and posterior to the mass otherwise. Dominant drainage via the right transverse and right sigmoid sinus into the right internal jugular vein with patent although smaller caliber left transverse and left sigmoid sinus. Patent unremarkable appearance of the straight sinus, great cerebral vein, internal cerebral veins, and basal veins of Valerie. Impression: IMPRESSION: Stable large left parafalcine meningioma with apparent invasion of the underlying superior sagittal sinus with loss of flow signal and postcontrast enhancement through this segment of the dural sinus although with otherwise preserved flow both anterior and posterior to the mass and surrounding cortical veins suggesting collateralized flow. Paper Goods Machine Operator: [facility] Transcribe Date/Time: Jul 18 2021 2:17P Dictated by : QAMAR KIRK MD This examination was interpreted and the report reviewed and electronically signed by: REGGIE KIMBLE MD on Jul 18 2021 2:57PM EST Complete Results CT BRAIN WO IVCON (Order [id number]) Patient Info Patient Name Sex Watson Rose ([id number]) Male 1960 08/25/2021 12:55 PM - Radiology, Oru In Impression IMPRESSION: Suboptimal assessment of a meningioma involving the posterior falx and superior sagittal sinus at the vertex with marked mass effect on the underlying frontal and parietal lobe with moderate degree of perilesional vasogenic edema. No midline shift or brain herniation. Findings are likely not significantly changed from 07/18/2021, accounting for differences in imaging technique. Paper Goods Machine Operator: [facility] Transcribe Date/Time: Aug 25 2021 12:32P Dictated by : CHELSEY VAUGHN MD This examination was interpreted and the report reviewed and electronically signed by: YEIMI HINSON MD on Aug 25 2021 12:53PM EST Results-Findings * * *Final Report* * * DATE OF EXAM: Aug 25 2021 12:34PM [facility] 0504 - CT BRAIN WO IVCON / PROCEDURE REASON: multiple diagnoses * * * * Physician Interpretation * * * * EXAMINATION: CT BRAIN WO IVCON HISTORY: Meningioma (HCC) Brain edema (HCC) Seizure (HCC) - - - - Neoplasm: head, metastatic, suspected - [id number] - - Worsening seizures,?? Meningioma - - TECHNIQUE: CT head without contrast. M: [id number]_3 CT Dose-Length Product (DLP): 784 mGy*cm CT Dose Reduction Employed: Automated exposure control(AEC) and iterative recon COMPARISON: MRV and MRI brain 07/18/2021, MRI brain 04/22/2021. RESULT: Post-operative change: None. Acute change: No evidence of an acute infarct. Vasogenic edema associated with the meningioma, as detail below under mass lesion/mass effect section. Hemorrhage: No evidence of acute intracranial hemorrhage. Mass Lesion / Mass Effect: Large extra-axial mass centered at the posterior falx and superior sagittal sinus at the vertex. Determination of the precise margins of the mass for accurate measurements is not possible without IV contrast, the mass does not grossly appear significantly changed in size from 07/18/2021. Again seen is similar moderate perilesional vasogenic edema involving the adjacent dorsal left frontal lobe and superior parietal lobule, structures upon which the mass exerts marked mass effect. There is no midline shift or brain herniation. Chronic change: None apparent. Parenchyma: No significant parenchymal volume loss. Ventricles: Normal caliber and morphology. Other: The calvarium, skull base, imaged paranasal sinuses, mastoids, orbits and extracranial soft tissues are unremarkable. Shot Blast Equipment Operator (topogram) images: No additional findings. Result History CT BRAIN WO IVCON (Order #[id number]) on 08/25/2021 - Order Result History Report Result Information Status Provider Status Final result (08/25/2021 12:55 PM) Reviewed Exam Performed Date and Time 08/25/2021 12:34 PM Resulting Agency [facility][id number][facility]DIVISION OF RADIOLOGY AT [facility] [id number] Assessment & Plan Mr. Watson Rodriguez is a 61 year old male investigated for right leg numbness and weakness (couldn'tstand on it) April 2020. Work up for lumbar spine cause non conclusive. 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 His right leg still numb and weak. High step gait to avoid dragging his right lower extremity. He had GK-SRS to the tumor (25Gy/5fx) from 08/16/2020-08/20/2020. At the end, Mr. Rodriguez verbalized understanding, and agreement with above recommendations and had no further questions or concerns for the moment. He tells me that he saw Dr. Sutton who placed him on dexamethasone to see whether that would improve his symptoms and then he will go off tentral and vitamin E. Mr. Rodriguez wishes to have a follow-up appointment with me in the next few weeks, to go over his progress regarding his seizures. He will call our office and ask for an appointment that is convenient for him, and also for our clinic. PLAN: 1-Continue on lacosamide (Vimpat) at 200 mg BID for now. 2-ContinueKeppra 500 mg BID (takes it at 12 PM and 6 PM) 3-rescue medications for breakthrough seizures using either midazolam nasal spray, within 24 hours,and clonazepam sublingual, but not to use it on the same day as midazolam. I discussed with the patient the potential benefits and side effects of this medications and he knows when and how to use it. 4-Seizure precautions as discussed above, as I recommended for him not to drive a car or any motorized vehicle. 3-follow-up with Dr. Sutton and Dr. 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 4-Follow with Dr. Sutton, for clinical and imaging surveillance for his meningioma. I am certainlyhappy to follow him along with Dr. Sutton. 4-Referral to Epilepsy at [facility] for expert care, and AED management advice, as I believe that his seizure management is more complex. He was seen by Dr. Catarino Camacho and gave advise as above. The patient wishes however not to follow with the epilepsy clinic, but with me. He is open for me to concur with the epilepsy clinic for advice. 6-Follow with his primary physician Dr. Whittington for general medical care. 7-EEG, routine. Pending. 8-call 911, if he were to have another seizure. 9-Levetiracetam and lacosamide levels in the next couple of weeks. 10-Return to my neuro-oncology clinic in 4-8 weeks time, virtual visit Ok, or sooner if the need arises. I spent 61 minutes in the visit, with more than 50% of the total [id number] time of the visit in counseling / coordination of care. Yancy Centeno MD Staff Neuro-Oncologist [facility] CC: Dr. Trev Sutton, Neurosurgery, [facility] PCP Breanne Whittington MD PCP - General Family Practice 12/17/2020 End [address] [facility] [id number] ; documented in this encounter[facility] History of Present illness Narrative* Rand Hallman LPN - 10/05/2021 1:55 PM EDT Patient presents for EKG per Dr Jake MD. Denies any problems at this time. Tolerated procedure well. Rand Hallman LPN documented in this encounterMer[facility]-25-2022 Miscellaneous Notes* Telephone Encounter - Ruthie Talbot Ma - 10/05/2021 12:57 PM EDT Most recent tetanus was Tdap on 09/15/2013. Pt notified via Fluorofinder. Also notified pt that he can seehis immunization report through CallGradert. Ruthie Talbot Ma documented in this encounterMer[facility]-04-2022 History of Present illness Narrative* Catarino Camacho MD, PhD - 09/14/2021 1:05 PM EDT [facility] Patient Name: Watson Rodriguez Date of : 1960 CLINIC NOTE - INITIAL VISIT CHIEF COMPLAINT: CONSULTING DOCTOR: Yancy Centeno [address] [facility] [address] Centeno for an opinionand my final recommendations will be communicated to the referring physician by way of shared medical record or letter to requesting physicianvia US mail. PRESENT ILLNESS: This is a 61 year old right handed with MRI brain showed left parasaggital dural based lesion 4.9 x3.5x4.2 cm with small nodule extending to right side, felt to be in keeping with meningioma. He had GK-SRS to the tumor (25Gy/5fx) from 08/16/2020-08/20/2020. He also had history of Ischemic heart disease with a Stent in 2012. He also had one atrophic kidney. Symptoms noted Apr 2020 with transient right leg numbness and foot drop. Was evaluated, had MRI lumbosacral spine and EMG, un-revealing. He was seen in the cerebrovascular neurology clinic, on July 19, 2020 as he was not getting better, given some acuity of the symptoms, a stroke diagnosis was raised. He underwent Brain MR images on July 27, 2020 which showed large parasagittal lesion arising from the falx, felt to be most compatible with a meningioma. Vascular images showed a superior sagittal sinus being blocked at the level of the tumor. Given this with the transient sensorimotor symptoms with the location of the brain MRI findings with acute events, a seizure diagnosis was raised. Today in the clinic patient reported in July 27, 2020 Keppra was started 1000 mg/day by Dr. Junior then on July Keppra to 2000 mg/day and Dex to [address] Bowers, then had the Gamma knife in August 16-2020. He continued to have sensorimotor likely seizures described as right foot jerks and right leg seizure, this was never involving the left side. Rarely it might migrate gradually from right leg to right arm. He also reports almost daily numbness, burning, tingling affecting right leg. On Mar 10, 2021 Keppra to Zonisamide over 4 weeks, Last Keppra was Apr 09. The rationale behind stopping Keppra was tightening of the right leg, attributed to Keppra. Patient started on Lacosmaide on May 19 to help with the seizures. He also reports that he can tell A big seizure occurred in August 22, At Sunday 12:30 AM patient wake up with right leg jerks and twitches, he tried to find his clonazepam, he couldn't reach, he fell to the floor, his tried tohelp finding clonazepam they couldn't find it initially, seizure progressed to right arm, and then his noted that he lost his awareness, but no clear definite jerking on the left side of his body. This whole seizure lasted 7 minutes. He slept for 45 minutes and then returned gradually to baseline and said Did I have a seizure. In the last 3 weeks he reported he only used clonazepam once. On August 10, Lacosamide dose was increased to 200 in AM from 150 AM. Currently on Lacosamide (Vimpat) 200 BID (he take it at 7:30 AM, and 6 PM) + Levetiracetam (Keppra)500 BID (He take it at 12 PM, 6PM). PREVIOUS EVALUATIONS: Previous EEG 01/08/2021: Classifications: Abnormal II (10-20 Scalp Electrodes, Awake, Sleep) Interictal: Intermittent Slow, Regional, Left Parietal Impression: This EEG is consistent with a mild cortical dysfunction in the left parietal region. No epileptiform discharges or EEG seizures were seen during this recording. Previous MRI 07/18/2021: IMPRESSION: Stable large left parafalcine meningioma with apparent invasion of the underlying superior sagittalsinus with loss of flow signal and postcontrast enhancement through this segment of the dural sinusalthough with otherwise preserved flow both anterior and posterior to the mass and surrounding cortical veins suggesting collateralized flow. Brain Tumor Yes WEBBING TACKER Infections No Developmental Delay No Family history of seizures No Febrile Seizure No Complications No Stroke No Traumatic Brain Injury No CURRENT MEDICATIONS: pentoxifylline ER (TRENTAL) 400 mg CR tablet Take 1 tablet by mouth three times daily with meals. lacosamide (VIMPAT) 50 mg tab Take 4 tablets by mouth twice daily for 14 days. lacosamide (VIMPAT) 50 mg tab Take 200 mg BID (give the 50 mg tabs) levETIRAcetam (KEPPRA) 500 mg tablet Take 1 tablet by mouth twice daily. dexAMETHasone (DECADRON) 2 mg tablet 2 mg the day prior to the flight, the day of the flight and the day after the flight. midazolam (NAYZILAM) 5 mg/spray (0.1 mL) nasal spray Use 1 spray in one nostril as needed for seizures. May repeat dose in alternate nostril after 10 minutes based on response and tolerability. Only take for seizures lasting more than 3 minutes or more than 3 seizures in an hour sildenafil (VIAGRA) 50 mg tablet Take 1 tablet by mouth as needed. Vitamin E, dl, acetate, (VITAMIN E) 400 unit capsule Take 1 capsule by mouth twice daily. CPAP Initiate Auto PAP @ 5-20 cm of water with humidification. Mask (per patient preference) optional chin strap (if indicated) , filters, tubing, humidifier and lifetime supplies. rosuvastatin (CRESTOR) 40 mg tablet Take 40 mg by mouth. Multivitamin capsule Take 1 capsule by mouth once daily. clopidogrel (PLAVIX) 75 mg tablet Take 75 mg by mouth once daily. aspirin(ADULT LOW DOSE ASPIRIN 81 MG TAB, DELAYED RELEASE) Take one(1) tablet daily. PRIOR ANTICONVULSANT HISTORY: PAST MEDICAL HISTORY: PAST MEDICAL HISTORY Diagnosis Date Acute myocardial infarction of lateral wall (HCC) 2012 s/p LAD stent Benign neoplasm of colon Benign neoplasm of meninges (HCC) 08/02/2020 Hyperlipidemia Seizure (HCC) focal motor No past medical history pertinent negatives. PAST SURGICAL HISTORY: PAST SURGICAL HISTORY Procedure Laterality Date COLONOSCOPY FLX DX W/COLLJ SPEC WHEN PFRMD 10/29/2009 Colonoscopy HEMORRHOID;BAND LIGAT, SNGL/MUL 12/2016 PAST SURGICAL HISTORY OF Left 04/2017 left knee arthroscopy - meniscus PAST SURGICAL HISTORY OF 01/2013 PTCA x 1 - LAD FAMILY MEDICAL HISTORY: FAMILY HISTORY Problem Relation Age of Onset Colon Cancer Mother ascending large intestine removed 2009 at 80 years old Colon Cancer Maternal Grandmother portion lower colon removed 60 years old, colostomy SOCIAL HISTORY: Social History Tobacco Use Smoking status: Never Smoker Smokeless tobacco: Never Used Vaping Use Vaping Use: Never used Substance Use Topics Alcohol use: No Drug use: No GENERAL EXAMINATION: There were no vitals taken for this visit. NEUROLOGICAL EXAMINATION: MENTAL STATUS: Alert and oriented to person place and time, follows 1 and 2 step commands, speech fluent and without anomia or paraphasic errors. Watson Rodriguez is able to name objects and read sentences. CRANIAL NERVES: Visual gonzalez full. EOMI. Face symmetric. Palate elevates equally bilaterally, tongue midline. MOTOR: Strength: RUE: 5/5, RLE: 5/5, LUE: 5/5, LLE: 5/5. Tone is normal, bulk is symmetric. SENSORY: Intact to light touch. REFLEXES: RUE: 2+, RLE: 2+, LUE: 2+, LLE: 2+, toes are down going bilaterally. CEREBELLUM: Finger to Nose testing is normal. Rapid alternating movements are normal and symmetric,Heel to shaw testing is normal. Gait examination is normal including tandem. Romberg negative. IMPRESSION: 61 year old with MRI brain showed left parasaggital dural based lesion 4.9 x3.5x4.2 cm with small nodule extending to right side, felt to be in keeping with meningioma. He had GK-SRS to the tumor (25Gy/5fx) from 08/16/2020- 08/20/2020. He also had history of Ischemic heart disease with aStent in 2012. Today we had lengthy discussion in the clinic that his BEM EEG reading didn't show either epileptiform discharges or seizures, however, his clinical presenation likely in keeping with focal sensri-motor seizures with some features of a Jacksonian marching of the seizure, this does fit with his MRI l esion. Currently on two AEDs: LCM 200 BID and LEV 500 BID. They asked us if ibuprofen or Viagra might be related to the seizure occurrence, we thought this isvery less likely. We also discussed that sleep deprivation, stress might lower seizure threshold and how to maintain healthy balanced lifestyle. PLAN: 1- Do AED durg levels of Lacosmaide and Levetiracetam, level to be drawn early AM before taking AED's. 2- If the Levetiracetam is low, an option to increase the dose to 750 mg BID. Vit B6 100 mg per dayto prevent mood irritability related to Levetiracetam. 3- No driving till seizure free for 6 months from last seizure and with occupational health assessment for right leg weakness 4. EKG to assess TX interval while on Lacosamide. Sergo Joseph MD Epilepsy fellow EPILEPSY STAFF NOTE: I saw the patient at Fellow's clinic Brief summary: Patient has significant history for CAD c/b AK s/p stent in 2012. Onset of Right foot weakness and distal leg heaviness and numbness in Apr, subsequent brainMRI 08/11/2020 showed left parietal vertex meningioma and mass effect on left paracentral lobule, s/p GK-SRS in August of 2020. Initially he was treated with Levetiracetam 1g bid then 1500 mg bid for sensory motor like seizures. Typical seizure like episodes: painful cramping in the right foot and traveling upward. [facility], during [facility], when LEV was held, he had a few episodes of right legtwitching while BEM of a few days did not show any epileptiform discharges or seizures. At end of Feb 2021 he was transitioned from LEV to Zonisamid (?LEV caused tightening of right leg), he could not tolerate Zonisamide (worsening tinnitus). In May he used KLN frequently for seizure like episodes prior to Vimpat. While on Vimpat 200 mg/150 mg, he had a big seizure (August 22, 2021) of right leg jerking and twitching, unable to reach his KLN, the seizure progressed to right arm with LOC. Afterwards, Vimpa increased to 200 mg bid, LEV 500 mg bid restarted. LEV 500 mg bid restarted for additional seizure control. Other issues, right leg heaviness which is daily issue, can last 2-6 hours, if he ambulates or elevate the right leg, he will feel better. PLAN: As outlined int the fellow note: Check levels of ASMs EKG for TX interval Continue current Levetiracetam (add Vit B6 100 mg per day) and Lacosamide for now Use KLN for seizures, not for leg weakness (the features related to right leg heaviness as mentioned above is more related to tumor). No driving due to recent seizure in August 2021, this needs 6 months. Prior to be able to drive, he needs PTOP assessment of ability to drive due to right leg heaviness. The patient prefers to continue follow up with his qamar tumor neurologist, Dr. Centeno, and he prefers us to communicate about seizure medication management with Dr. Messer, instead of seeing another neurologist. Catarino Camacho MD PhD Staff, Epilepsy Center [place], [place] cc: Primary Care Physician: Breanne Whittington MD [id number] [facility] [id number] Referring Physician: Yancy Centeno [address] [facility] [address] Mr. Watson Rodriguez [id number] [facility] [id number] documented in [facility] encounter[facility]22 Miscellaneous Notes* Telephone Encounter - Flaco Gutierrez LPN - 09/12/2021 2:42 PM EDT TC to pt, spoke with pt and . states swelling has resolved and that she doesn't feel it's necessary to come in to have it evaluated. She states pt does not have a hx of DVT, he doesn't appear to be short of breath and no chest pain. is having surgery next week so pt would not be able to make it into office for the next couple weeks anyway. Advised pt to keep an eye and if anything changes to call the office. Pt and agreeable to this. Flaco Gutierrez LPN * Telephone Encounter - Breanne Whittington MD - 09/12/2021 2:05 PM EDT I just got a note from his last neurology ov asking to have us evaulate his leg. So..independent guess if he feels it is ok, we can just watch it. * Telephone Encounter - Flaco Gutierrez LPN - 09/12/2021 1:48 PM EDT TC to pt, he states Neurology has been managing the leg edema. Pt asking if this coming from another provider that he is following with or where this is coming from? Pt asking if PCP has some new information that he needs to be aware of? Pt states at [facility] PCP noted that his edema was under control? Please advise. Flaco Gutierrez LPN * Telephone Encounter - Breanne Whittington MD - 09/12/2021 1:34 PM EDT Having intermittent leg edema. Have him come in next few weeks to see one of us. documented in this encounterMer[facility]04-22-2022 History of Present illness Narrative* Yancy Centeno MD - 09/02/2021 5:04 PM EDT Images from the original note were not included. [facility] Follow up Virtual Consultation Referred by Dr. Trev Sutton [address] [facility] [id number] We had a virtual visit conducted via video. I received consent from the patient to perform the visit using this platform. The patient is accompanied by his Damaris who is a nurse. 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 Work up for lumbar spine cause non conclusive. He had an episode of seizureand MRI brain showed left parasaggital dural based lesion 4.9 x3.5x4.2 cm with small nodule extending to right side. His right leg still numb and weakness. High step gait to avoid dragging his right lower extremity. He had GK-SRS to the tumor (25Gy/5fx) from 08/16/2020-08/20/2020. -His main concern is tinnitus, that is very bothersome and is affecting his quality of life quite significantly. IMPORTANT POINTS OF THE PATIENT'S HISTORY AND PROGRESSION: MENINGIOMA DIAGNOSIS: Mr. Wilder presented back on April 14, 2020, with a complaint of right leg numbness and weakness, and foot drop, this happened after the day before doing heavy lifting, by caring an object waitingaround 20 pounds, and shoveling snow. He was evaluated, initially back in April 2020 he had images of the lumbosacral region which were not revealing, but he was diagnosed with a presumptive radiculopathy at the level of 5, for which he underwent an EMG that was unrevealing also, and he went on to receive an L5 transforaminal injection without any help. He then was evaluated, and there is cerebrovascular neurology clinic, on July 19, 2020 as he was not getting better. At that time, because the event happened acutely, the working diagnosis of a stroke was given. Brain MR images performed on July 27, 2020 revealed rather a large parasagittal mass arising from the falx, involving both sides, more the left than the right, centered in the frontal regions and parietal lobe levels. Radiologically, this tumor was most compatible, with a meningioma. 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 This finding, correlated with the patient's presentation, and the weakness and paresthesias, may have been due to an acute event of a seizure back on April 14, 2020, however the leg weakness, also as a result of the tumor. The patient was referred to see Dr. Sutton, from neurosurgery at the [facility]. Dr. Sutton recommended gamma knife which he received, between August 16 through August 20, 2020. Antiepileptics: On Vimpat at 150 mg BID, he is to increase the dose next week. Patient is asking ifhe can stay on 150 mg BID and not to escalate to the higher dose as planned, as his seizures are better. Last Chemo: N/A Current Steroids dose: Per Dr. Sutton's recommendations: July 26 to August 09, 2021. Symptoms improved . On 08/15/21 Dr. Sutton recommended to resume Vit E and Trental, as these meds were put on hold whileon dex. E,nded steroid taper Current AED Dose: in the process of titration of Vimpat at 200 mg in am And 150 mg HS now (08/23/21). Off Zonegran Therapy Status Data Form Past Medical History: PAST MEDICAL HISTORY Diagnosis Date Acute myocardial infarction of lateral wall (HCC) 2012 s/p LAD stent Benign neoplasm of colon Benign neoplasm of meninges (HCC) 08/02/2020 Hyperlipidemia Seizure (HCC) focal motor Past Surgical History: PAST SURGICAL HISTORY Procedure Laterality Date COLONOSCOPY FLX DX W/COLLJ SPEC WHEN PFRMD 10/29/2009 Colonoscopy HEMORRHOID;BAND LIGAT, SNGL/MUL 12/2016 PAST SURGICAL HISTORY OF Left 04/2017 left knee arthroscopy - meniscus PAST SURGICAL HISTORY OF 01/2013 PTCA x 1 - LAD Family History: FAMILY HISTORY Problem Relation Age of Onset Colon Cancer Mother ascending large intestine removed 2008 at 80 years old Colon Cancer Maternal Grandmother portion lower colon removed 60 years old, colostomy Social History Tobacco Use Smoking status: Never Smoker Smokeless tobacco: Never Used Vaping Use Vaping Use: Never used Substance Use Topics Alcohol use: No Drug use: No Allergies: Atorvastatin Current Outpatient Medications Medication Sig levETIRAcetam (KEPPRA) 500 mg tablet Take 1 tablet by mouth twice daily. dexAMETHasone (DECADRON) 2 mg tablet 2 mg the day prior to the flight, the day of the flight and the day after the flight. midazolam (NAYZILAM) 5 mg/spray (0.1 mL) nasal spray Use 1 spray in one nostril as needed for seizures. May repeat dose in alternate nostril after 10 minutes based on response and tolerability. Only take for seizures lasting more than 3 minutes or more than 3 seizures in an hour sildenafil (VIAGRA) 50 mg tablet Take 1 tablet by mouth as needed. lacosamide (VIMPAT) 50 mg tab Take 200 mg BID (give the 50 mg tabs) pentoxifylline ER (TRENTAL) 400 mg CR tablet Take 1 tablet by mouth three times daily with meals. Vitamin E, dl, acetate, (VITAMIN E) 400 unit capsule Take 1 capsule by mouth twice daily. CPAP Initiate Auto PAP @ 5-20 cm of water with humidification. Mask (per patient preference) optional chin strap (if indicated) , filters, tubing, humidifier and lifetime supplies. rosuvastatin (CRESTOR) 40 mg tablet Take 40 mg by mouth. Multivitamin capsule Take 1 capsule by mouth once daily. clopidogrel (PLAVIX) 75 mg tablet Take 75 mg by mouth once daily. aspirin(ADULT LOW DOSE ASPIRIN 81 MG TAB, DELAYED RELEASE) Take one(1) tablet daily. No current facility-administered medications for this visit. Review of systems: SEE ABOVE Constitutional: No recent fever or weight loss. Eyes: No history of glaucoma or cataracts. ENMT: No recent ear infection, nasal congestion, mouth sores or sore throat. See HPI CV: No history of chest pain, palpitations Right leg swelling, SEE HPI Respiratory: No history of SOB, asthma or recent cough. Gastrointestinal: No history of nausea, vomiting, dysphagia or abdominal pain. Genitourinary: No history of hematuria or dysuria. Musculoskeletal: No complaint of arthritis Has Right leg weakness, see HPI. Psychiatric: No history of hallucinations He feels somewhat anxious and also down emotionally as his neurological disability is affecting hisQOL. ROS Neurological: SEE HPI No complaint of headache. Complaint of tinnitus, bilateral . No complaint of decreased hearing. No complaint of diplopia. No complaints of decreased visual acuity. Complaint of RT arm/leg numbness. Problem with RT limb coordination. No complaint of syncope Complaint of seizures, see HPI No loss of consciousness. Objective No physical Exam was performed, as this was the virtual visit, however on observation the patient appeared in no distress, he was eloquent, no language dysfunction that I could elicit, no cranial nerve abnormalities are grossly on observation. Karnofsky performance status: 70 - Cares for self, unable to carry on normal activity or to do work. ECOG performance status: 1 - Restricted in physically strenuous activity but ambulatory and able tocarry out work of a light or sedentary nature, e.g., light house work or office work. PHQ 2 and 9 Total Scores 04/25/2021 PHQ-2 Score 2 PHQ-9 Score 6 Labs: CBC Latest Ref Rng & Units 06/24/2021 07/04/2021 08/31/2021 WBC 3.70 - 11.00 k/uL 3.40(L) 4.45 6.76 RBC 4.20 - 6.00 m/uL 4.79 4.69 4.83 HEMOGLOBIN 13.0 - 17.0 g/dL 15.2 14.7 15.2 HEMATOCRIT 39.0 - 51.0 % 43.2 42.4 44.3 MCV 80.0 - 100.0 fL 90.2 90.4 91.7 MCH 26.0 - 34.0 pg 31.7 31.3 31.5 MCHC 30.5 - 36.0 g/dL 35.2 34.7 34.3 RDW-CV 11.5 - 15.0 % 11.8 11.7 11.6 PLATELETS 150 - 400 k/uL 166 170 221 MPV 9.0 - 12.7 fL 8.7(L) 8.3(L) 8.2(L) BASO% % 0.3 0.2 0.3 ABS NEUT (ANC) 1.45 - 7.50 k/uL 2.06 3.02 5.04 ABS LYMPH 1.00 - 4.00 k/uL 0.87(L) 0.84(L) 0.96(L) ABS MONO <0.87 k/uL 0.43 0.55 0.68 ABS EOSIN <0.46 k/uL 0.03 <0.03 <0.03 ABS BASO <0.11 k/uL <0.03 <0.03 <0.03 NRBC /100 WBC - - 0.0 DIFF TYPE - Auto Diff Auto Diff - CMP Latest Ref Rng & Units 12/24/2020 01/08/2021 06/24/2021 SODIUM 136 - 144 mmol/L 137 139 134(L) POTASSIUM 3.7 - 5.1 mmol/L 3.9 4.0 4.1 CHLORIDE 97 - 105 mmol/L 104 102 101 CO2 22 - 30 mmol/L 24 26 27 GLUCOSE 74 - 99 mg/dL 95 93 89 BUN 9 - 24 mg/dL 15 14 12 CREATININE 0.73 - 1.22 mg/dL 1.05 1.09 1.10 EGFR-ALL OTHER RACES . >60 >60 >60 EGFR- - >60 >60 >60 PROTEIN, TOTAL 6.3 - 8.0 g/dL 6.8 6.7 6.3 ALBUMIN 3.9 - 4.9 g/dL 4.5 4.6 4.5 CALCIUM, TOTAL 8.5 - 10.2 mg/dL 9.6 9.5 9.2 BILIRUBIN, TOTAL 0.2 - 1.3 mg/dL 0.7 0.4 0.6 AST 14 - 40 U/L 20 28 18 ALT 10 - 54 U/L 21 27 21 ALKALINE PHOSPHATASE 38 - 113 U/L 69 71 77 Final Pathology: N/A PATIENT HAS NOT HAD A BIOPSY OF HIS BRAIN TUMOR. Imaging: MRI Report MRV BRAIN WO/W IVCON Exam End: 07/18/2021 11:11 AM (Final result) Narrative: * * *Final Report* * * DATE OF EXAM: Jul 18 2021 11:11AM [facility] [id number] - MRV BRAIN WO/W IVCON / PROCEDURE REASON: Meningioma (HCC) * * * * Physician Interpretation * * * * EXAMINATION: MRI BRAIN WO/W IVCON, MRV BRAIN WO/W IVCON CLINICAL HISTORY: Left parasagittal meningioma s/p GKRS. TECHNIQUE: Intracranial mass brain MRI protocol without and with contrast including diffusion images. Intracranial 3D oblique [id number] MRV and gadolinium enhanced coronal T1 subtracted volumetric acquisition of the intracranial vessels. 3D maximum intensity projection images were created, reviewed and archived. MQ: [id number] Contrast: 17 mL Dotarem IV COMPARISON: MRI brain 04/22/2021, 07/27/2020 imported CTA head RESULT: MRI BRAIN Acute Change: There is no evidence of an acute intracranial process. Hemorrhage: No evidence of prior parenchymal hemorrhage on the gradient echo images. Mass Lesion/ Mass Effect: Stable well demarcated extra-axial homogenously enhancing T2 mildly hyperintense, FLAIR predominantly isointense, T1 mildly hypointense mildly diffusion restricting 5.0 x 4.3 x 3.9 cm centered over the posterior falx eccentric to the left with mass effect on the left paracentral lobule and left greater than right superior parietal lobules. There is underlying invasion of the superior sagittal sinus with obscuration of the superior sagittal sinus flow void in this region. Stable degree and extent of the T2/FLAIR hyperintensity surrounding the lesion in the posterior left frontal and parietal white matter with no apparent signal changes on the contralateral side. Chronic Change: The white matter is otherwise within normal limits of signal intensity for age. Parenchyma: No significant volume loss for age. Ventricles: Normal caliber and morphology. Skull Base: Hypothalamic and pituitary region are grossly normal. Craniocervical junction is normal. No significant marrow replacement process. Vasculature: Obscuration of the flow void the superior sagittal sinus in the region of infiltrating meningioma. Otherwise the major intracranial arterial structures, and dural venous sinuses show typical flow void, suggesting patency by spin echo criteria. Other: Minimal retained T2 hyperintense secretions in a single left anterior ethmoid air cell. Trace mucosal thickening along the inferior margin of the left maxillary sinus. The visualized paranasal sinuses and mastoid air cells are otherwise clear. The orbits and extracranial soft tissues are unremarkable. MRV There is loss of flow within the superior sagittal sinus adjacent to the large meningioma on the [id number] images, although the portions of the superior sagittal sinus both anterior and posterior to this have preserved flow signal. There is similar loss of postcontrast enhancement of the segment on the gadolinium-enhanced images. Suspect collateralized flow along the margins of the mass given the appearance on the prior CTA and preserved flow within the surrounding superficial cortical veins and preserved flow signal both anterior and posterior to the mass otherwise. Dominant drainage via the right transverse and right sigmoid sinus into the right internal jugular vein with patent although smaller caliber left transverse and left sigmoid sinus. Patent unremarkable appearance of the straight sinus, great cerebral vein, internal cerebral veins, and basal veins of Valerie. Impression: IMPRESSION: Stable large left parafalcine meningioma with apparent invasion of the underlying superior sagittal sinus with loss of flow signal and postcontrast enhancement through this segment of the dural sinus although with otherwise preserved flow both anterior and posterior to the mass and surrounding cortical veins suggesting collateralized flow. Paper Goods Machine Operator: [facility] Transcribe Date/Time: Jul 18 2021 2:17P Dictated by : QAMAR KIRK MD This examination was interpreted and the report reviewed and electronically signed by: REGGIE KIMBLE MD on Jul 18 2021 2:57PM EST Complete Results CT BRAIN WO IVCON (Order [id number]) Patient Info Patient Name Sex Watson Rose ([id number]) Male 1960 08/25/2021 12:55 PM - Radiology, Oru In Impression IMPRESSION: Suboptimal assessment of a meningioma involving the posterior falx and superior sagittal sinus at the vertex with marked mass effect on the underlying frontal and parietal lobe with moderate degree of perilesional vasogenic edema. No midline shift or brain herniation. Findings are likely not significantly changed from 07/18/2021, accounting for differences in imaging technique. Paper Goods Machine Operator: [facility] Transcribe Date/Time: Aug 25 2021 12:32P Dictated by : CHELSEY VAUGHN MD This examination was interpreted and the report reviewed and electronically signed by: YEIMI HINSON MD on Aug 25 2021 12:53PM EST Results-Findings * * *Final Report* * * DATE OF EXAM: Aug 25 2021 12:34PM [facility] 0504 - CT BRAIN WO IVCON / PROCEDURE REASON: multiple diagnoses * * * * Physician Interpretation * * * * EXAMINATION: CT BRAIN WO IVCON HISTORY: Meningioma (HCC) Brain edema (HCC) Seizure (HCC) - - - - Neoplasm: head, metastatic, suspected - [id number] - - Worsening seizures,?? Meningioma - - TECHNIQUE: CT head without contrast. M: [id number]_3 CT Dose-Length Product (DLP): 784 mGy*cm CT Dose Reduction Employed: Automated exposure control(AEC) and iterative recon COMPARISON: MRV and MRI brain 07/18/2021, MRI brain 04/22/2021. RESULT: Post-operative change: None. Acute change: No evidence of an acute infarct. Vasogenic edema associated with the meningioma, as detail below under mass lesion/mass effect section. Hemorrhage: No evidence of acute intracranial hemorrhage. Mass Lesion / Mass Effect: Large extra-axial mass centered at the posterior falx and superior sagittal sinus at the vertex. Determination of the precise margins of the mass for accurate measurements is not possible without IV contrast, the mass does not grossly appear significantly changed in size from 07/18/2021. Again seen is similar moderate perilesional vasogenic edema involving the adjacent dorsal left frontal lobe and superior parietal lobule, structures upon which the mass exerts marked mass effect. There is no midline shift or brain herniation. Chronic change: None apparent. Parenchyma: No significant parenchymal volume loss. Ventricles: Normal caliber and morphology. Other: The calvarium, skull base, imaged paranasal sinuses, mastoids, orbits and extracranial soft tissues are unremarkable. Shot Blast Equipment Operator (topogram) images: No additional findings. Result History CT BRAIN WO IVCON (Order #[id number]) on 08/25/2021 - Order Result History Report Result Information Status Provider Status Final result (08/25/2021 12:55 PM) Reviewed Exam Performed Date and Time 08/25/2021 12:34 PM Resulting Agency [id number] AT [facility] [id number] Assessment & Plan Mr. Watson Rodriguez is a 61 year old male investigated for right leg numbness and weakness (couldn'tstand on it) April 2020. Work up for lumbar spine cause non conclusive. 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 His right leg still numb and weak. High step gait to avoid dragging his right lower extremity. He had GK-SRS to the tumor (25Gy/5fx) from 08/16/2020-08/20/2020. 1-SEIZURES: last time Seizures February 24, 2021. He has been followed by neurologist Dr. Gris Neal. He had been on levetiracetam (LEV) since around July 2020 but then weaned off due to potential side effects and then as he was having more focal seizures, he was a started on it again on December 2020. However his seizures were not under good control and that is why zonisamide was a started on March 10, 2021. He was then weaned off levetiracetam over the ensuing 4 weeks. The patient tells me that he still experiences events where he calls that his right leg goes numb but based on a more detailed description, it sounds as if he is having paroxysmal events of right legtonic posturing, and with some clonic component, that can last seconds to a coupe of minutes, this is still an issue. The most recent event where he had several events of focal seizures over a period of 24 hours, was on January 07, 2021. This occurred while driving to [place] to a work event. 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 He had to cancel his trip and landed int he ED at the [facility]. Based on careful neurological review of systems, I elicited, that the patient is still having, paroxysmal events, or focal seizures, characterized by tonic posturing of his foot that based on the description, it seems that he is foot was on dorsi flexion posturing, as well his toes flexed. This event can last a few seconds. They are also happening during his sleep, which is the same, that the sleep medicine physician described. The frequency of his events is 2-3 a week. This is still happening as of last week. He was given by his neurologist nasal spray midazolam as a rescue medication for breakthrough seizures but has not required to use it. DISCUSSION AND PLAN: Regarding seizure management, the patient wishes, to make the switch to lacosamide, and he has asked me, whether I could manage his seizures as well since I am doing the switch, and I told him that Chandrakant certainly happy to do share care, with his neurologist Dr. Neal. 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 Controlled with clonazepam, this, in the context of titration of Vimpat and tapering Zonegran RECOMMEND: CONTINUE THE TAPERING OF ZONEGRAN HIS TINNITUS IS BETTER AND THE GOAL WAS TO SEE IF TAPERING ZONEGRAN HIS TINNITUS WOULD IMPROVE AND IT DID. HOWEVER, HE HAS HAD MORE FOCAL SEIZURES, FOR WHICH I RECOMMEND INCREASING VIMPAT FOLLOWS: This is the titration schedule: Week 1 and 2: Vimpat 100 mg in am and 150 mg at night Week 3 and 4: Vimpat 150 mg BID Week 5 and 6: 150 mg in am and 200 mg at night Week 7 and 8: 200 mg BID. INTERIM EVENTS: JUL 19, 2021 His seizures have improved, since I saw him last, he has had only 2 sensory seizures. And no more clonic seizures. The patient wishes to stay at 150 mg BID of Vimpat and not to escalate the dose as planned, as he feels that his seizures have improved. He will call me back in 1 and 2 weeks to re-assess about the scalation. In principle if his seizures stopped in a sustained fashion then he may not need to increase the dose of VIMPAT any higher and then watch. However WHETHER HIS SEIZURES WILL STOPPED ON THE CURRENT DOSE remains to be seen. INTERIM EVENTS 08/23/2021 VV His Damaris present On 08/22/21 at around 12:30 Left leg moving, painful too. Clonazepam on the right side, as he reached over lost balance and fell in the floor, and lost clonazepam, seizure continued. Trying to find clonazepam, CPAP was down in the nose and had problem breathing, and CPAP pulled off, and seizure continued. Lost consciousness, Jolene tried to put clonazepam in mouth. This as been a violent seizure, aperiod of f 4 minutes was not aware of surroundings, but also his arm was jerking. Also shoulder and body all rigid. He said he could not breath. Kind of no control of body and when she found pill, mouth slightly open and teeth clamped on her finger. The whole event of seizure lasted 7 minutes. This was likely a convulsion. This is the first time he has an event as such. Changes made as above noted, he had ibuprofen the night before, but he has done this in the past, but this is the first time he has something like that. He is wondering whether this was the culprit of this seizure and or evenwhether the salty snacks he had may have contribute to it. He says, that when he was in steroids, he notices improvement on his symptoms, of right leg paresthesias. Upon stopping the steroids, those symptoms worsen. Now off Trental for a week, went off it to see if tinnitus would improve, but did not as of 08/22/21, also the Sunday night 08/20, took 200 mg Ibuprofen and Sunday, 200 mg TID. Took Ibuprofen for someleg pain as arose after doing PT. Having PT and into his 2nd week of aerobic exercise. Also had a headache. Also on Sunday08/20/21 had salty snacks. VERBATIM OF NOTES FROM TELEPHONE ENCOUNTERS FROM YESTERDAY 08/22/21 Telephone 08/22/2021 [facility] Yancy Centeno MD Neurology Seizure Reason for call Conversation: Seizure (Newest Message First) SS 08/22/21 3:40 PM Florencia Garrett RN routed this conversation to Nv Florencia Garrett RN 08/22/21 3:40 PM Note Returned call to patient. I spoke with him earlier regarding his seizure and I focused on what Dr Devlin had recommended. he is aware we are following at this time for his seizures and I can not address the tinnitus or Trental/Vitamin E and he should reach out to appropriate provider. -Increase Vimpat to [address] Devlin felt his seizure activity last night warranted an ER visit and should that happen again, he should go to her ER. Patient verbalizes an understanding and will follow these recommendations. He has a VV with Dr Devlin in the am Florencia Garrett RN, BSN Edi Coordinator [facility] DD 08/22/21 3:11 PM Seema Devine routed this conversation to Oliverio Devine DD 08/22/21 3:11 PM Note General Call Caller : Patient Contact Reason for Call : Patient has taken 200 mg. Of Ibuprofen 24 hrs. After having seizure. Patient has also takenTrentol and vitamin E; medication is causing tinnitus, patient is experiencing background headaches Patient requesting return call ? Yes 08/22/21 9:31 AM Florencia Garrett RN routed this conversation to Nv NRACISA Gallagher RN 08/22/21 9:29 AM Note Returned call to patient. He states he went to bed last night (Sunday, August 21) at 11pm with CPAP mask. Woke up ~ 12/;30 due to violent twitching of his Right leg. He reached over to his nightstand to grab his Clonazepam but fell out of bed. His R arm was flailing (which has never happened). Apparently his slipped the Clonazepam in his mouth and he bit her. He does not recall anything andevents are as reported to him by his . Seizure lasted about 7 minutes and he woke up on the floor about 1-1/2 hours later and went to bed. His day leading up to the seizure was uneventful He did notice some R foot edema (which is better) and states he weighs himself everyday and his weight is up 5#. Previously on VImpat 150mg BID and increased on 08/10 to 200mg in am and 150mg in PM. Stopped Trental and Vitamin E due to worsening Tinnitus off for one week and resumed this morning. Today he woke up at 8am and ate breakfast. Feels weak but otherwise ok. He has a VV scheduled with Dr Devlin tomorrow at 9am Will discuss with Dr Devlin and contact patient with his recommendations. Florencia Garrett, RN, BSN Edi Coordinator [facility] DD 08/22/21 8:53 AM Seema Devine routed this conversation to [facility] Se[facility] Dev[facility] DD 08/22/21 8:53 AM Note Seizure Call Full Name of Person Calling : Watson Rodriguez Relationship to Patient : Self Contact Date of Seizure(s) : 08/21/21 Duration : 7 min. ER Visit : No History of Seizure : Yes 08/22/21 8:50 AM Watson Rodriguez contacted Seema Devine Additional Documentation Flowsheets: [facility] PDMP [facility] SCORES Encounter Info: Billing Info, History, Allergies Detailed Report He is feeling well today, started Vimpat 200 mg BID last night., 08/22/21. He denies any other symptom, no fevers, no new head pain, neck pain no confusion, no new numbness, tingling, no visual changes, no dysphagia, no speech difficulty or language difficulty. No falls/head trauma No new medications, No missing medications. He is wondering whether ibuprofen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 terms, of motoric improvement. I will monitor the patient; however, if he continues having focal seizures, I think he would be a good candidate for epilepsy monitoring unit admission to exclude him having more seizures than what he realizes. 8: Possible spasticity of this right lower extremity. DISCUSSION AND PLAN: Although I did not examine the patient, I wonder whether he has a level of the spasticity that could be alleviated, by Botox injections. Here I will ask Dr. Neal to define whether Botox injections are an option for the patient, to improve his mobility. INTERIM EVENT JUN 30, 2021 On today examination, I did not identify a high degree of spasticity in his right lower extremity. 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 However, low threshold, to do vascular images and low threshold for suspicion for the possibility, of venous infarct. In the end the patient and verbalized understanding of the above, he and his had questions which I believe I answered to their satisfaction and had no further questions or concerns for the moment, but I encourage them to call the [facility] with any questions or concerns. INTERIM EVENTS: JUN 30, 2021, I will ask him to have a MR Venogram to exclude sinus thrombosis which could be causing venous congestion and causing leg weakness, and perhaps lowering seizure threshold. Yet I have not seen in the MRI's worsening edema in the adjacent tumor area. INTERIM EVENTS: JUL 19, 2021. The patient had his MRV and indeed shows the occlusion at the tumor level but this image was able to identifying collaterals. Discussion: As of now he persistent edema surrounding the tumor are is presumably from the tumor, one question is whether the edema is also or from the occluded superior sagittal sinus, yet the MRV shows collateral with blood flow anterior and posterior to the occluded SSS. The question is if the edema is also as a function of the occluded SS, then this may add to his symptoms, such as causing seizures/right lower extremity paresthesias. Although this is possible, the edema has been stable, and typically venous congestion from venous sinus thrombosis is progressive with no appropriate therapy (anticoagulation). I will discuss this case with one of my colleagues vascular neurologist to seek opinion whether other work up is needed, to assess venous flow etc., or other therapeutic interventions. He is on dual antiplatelets, aspirin and Plavix, for cardiac reasons. He says that he was recommended by his scada technician to stop Plavix 2 years ago, but he decided to stay on it, in addition to aspirin, as when the COVID-19 pandemic hit, he learned that this virus could cause blood clots hence out of him being cautious he decides to stay on both antiplatelet agents, and he is still on both. He is asking me whether he should remain ion both antiplatelets due to the occlusion of his SSS. I told him that I will discuss his case with one of my colleagues vascular neurologists and I will getback to him. I will also ask my colleague whether the occlusion of the SS from the tumor could be symptomatic. July 26, [address] Colton Mason to obtain input regarding the stenosis of the superior sagittal sinus from the tumor, in the context, that the MRV shows good collaterals anterior and posteriorly, andin the context that the patient has worsening paresthesias in his right lower extremity, upon physical activity.. The question is whether the stenosis, would be symptomatic, and also whether the edema around the tumor will be also from venous congestion. Dr. Colton Mason felt, that, also per his review the images, as well, that he would be unlikely for the stenosis of the surgical site the sinus to be symptomatic, and that the edema, is probably not related to the venous stenoses as the edema will be more prominent by now and it would show progressive venous congestion, and typically this will show also anteriorly. In summary, Dr. Colton Mason felt that the either occluded or stenosed SSS, is not symptomatic atthis time, and no need for any therapeutic or other diagnostic interventions. I also asked for his input regarding that the patient is on dual antiplatelets, that is, aspirin and Plavix, and that he has been, on both medications for 2 years per his own decision for the past 2 years, even though his scada technician told him, that he stop Plavix 2 years ago, and whether he ought to take both antiplatelets, because of his superior sagittal sinus occlusion or stenosis. Dr. Pinedo felt, that the patient, requires no therapeutic interventions, neither other diagnostic interventions, and that he would not recommend him to be on 2 antiplatelets, or not even on 1, if he did not need to be on antiplatelets for other reasons. However, the decision for the patient to continue on both antiplatelets, will be a decision to be made by his scada technician. Acknowledging, that thepatient was told by his scada technician to stop dual antiplatelet therapy 3 years ago and to continue only on aspirin. I called Mr. Rodriguez and reviewed the above with him. He tells me, that he saw his scada technician andthat he was told, that he does not need to be on dual antiplatelets and that he could go of his Plavix. He says that his scada technician is going to do a stress test in the future. At the end, Mr. Rodriguez verbalized understanding, and agreement with above recommendations and had no further questions or concerns for the moment. He tells me that he saw Dr. Sutton who placed him on dexamethasone to see whether that would improve his symptoms and then he will go off tentral and vitamin E. Mr. Rodriguez wishes to have a follow-up appointment with me in the next few weeks, to go over his progress regarding his seizures. He will call our office and ask for an appointment that is convenient for him, and also for our clinic. 10: Right lower extremity paresthesias. DISCUSSION He says that he has this almost persistent, sensation of tingling and needles sensation in his right foot, which it gets more pronounced when he stops on his foot. It is rather constant and is not paroxsymal in nature. He is wondering whether there is a pathology in his foot/leg. I told him that told him that this symptom is likely from the tumor, and it would be unlikely that he has a lumbosacral pathology to a peripheral process to explain this. He had a lumbar MRI in May 2020, and to my eye I see no significant pathology, and the report also shows no significant neuro foramina narrowing orspinal canal stenosis, other than some mild narrowing of the neural foramina form spurring at L4-5. 11 - In the context of a brain tumor with cerebral edema and history of seizures: 08/23/21 I told the patient, that according to the best knowledge, and also the guidelines from the [facility] for oncology directly issues, that cannot with patients with her physical status, upon flying of plane, that includes worsening of seizures, worsening of cerebral edema, and thromboembolism. The patient says that he is going to fly to [place] which is a short flight. However I recommended the following: PLAN: In order to decrease the possibility of steroid edema for flying, empirically recommended for the patient to take dexamethasone 2mg daily, the day prior to the flight, the day of the flight, and the day after the flight. I told him, that he suffered an empiric approach but this is my practice. PLAN: 1-Continue on lacosamide (Vimpat) at 200 mg BID for now. 2-ContinueKeppra 500 mg BID. 3-rescue medications for breakthrough seizures using either midazolam nasal spray, within 24 hours,and clonazepam sublingual, but not to use it on the same day as midazolam. I discussed with the patient the potential benefits and side effects of this medications and he knows when and how to use it. 4-Seizure precautions as discussed above, as I recommended for him not to drive a car or any motorized vehicle. 3-follow-up with Dr. Sutton and Dr. 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 4-Follow with Dr. Sutton, for clinical and imaging surveillance for his meningioma. I am certainlyhappy to follow him along with Dr. Sutton. 4-Referral to Epilepsy at [facility] [place] for expert care, and AED management advice, as I believe that his seizure management is more complex. Also whether there is a possibility of nocturnal seizures, for which he may need admission to the EMU, but this can be decided by the epilepsy team. 6-Follow with his primary physician Dr. Whittington for general medical care. 7-EEG, routine. Pending. 8-call 911, if he were to have another seizure yesterday and 08/22/2021, which was likely a convulsion. 9-Levetiracetam levels in the next couple of weeks. 10-Return to my neuro-oncology clinic in 8 weeks I spent 75 minutes in the visit, with more than 50% of the total [id number] time of the visit in counseling / coordination of care. Yancy Centeno MD Staff Neuro-Oncologist [facility] CC: Dr. Trev Sutton, Neurosurgery, [facility] PCP Breanne Whittington MD PCP - General Family Practice 12/17/2020 End 12/17/20 [address] [facility] [id number] ; documented in this encounterMercy Health St. [facility]04-15-2022 Miscellaneous Notes* Telephone Encounter - Yancy Centeno MD - 08/26/2021 3:29 PM EDT Images from the original note were not included. Telephone encounter I called the patient, and informed him of his CT of the head results. I told him, that CT of the head, in comparison to the previous MRI, and neurology and acknowledgingthe difference in imaging modality, the radiologist indicates that there is no significant change when compared to the MRI from July 18, 2021. Furthermore, no report of an acute event such as a bleed. I asked the patient to have this CAT scan of the head, to rule out anything acute, as he had a grand mal seizure when he has never seizure of this kind. He tells me, that he is doing very well, on the added Keppra, with no side effects. He is sleeping well he says. No side effects so far. He asked me, whether the ibuprofen that he took the night before, when he had the seizure may incited a seizure, and I told him, although anything is possible, it would be unlikely, as many people with epilepsy, takes these medications, and I am unaware of any absolute contraindications for patientwith epilepsy. Regarding interactions, between ibuprofen and Vimpat, which Vimpat be the antiepileptic, I check for interactions, and according to [employer] there are no interactions. This question is excellent from the patient, as he may take ibuprofen some of the time, but he saysthat he does not take it often, but he has taken it before, and he never had something like this happen before. Regarding: Ibuprofen and side effects, it is listed, on the as seizures will be one andthe frequency not defined. Under the postmarketing side effects, seizures are not listed/ Hence, based on my review of the monograph of this medication, seizures are not listed, as a side effect that he is no oral intake percentage. For now Mr. Rodriguez will continue taking Vimpat and levetiracetam as recommended. He has an appointment with me, via video next week, but I asked him to call me in the interim if any new issues arise. Yancy Centeno MD Results CT BRAIN WO IVCON (Order [id number]) Patient Info Patient Name Sex Watson Rose ([id number]) Male 1960 In Basket Actions Done Result Note View in In Basket 08/25/2021 12:55 PM - Radiology, O[place] In Impression IMPRESSION: Suboptimal assessment of a meningioma involving the posterior falx and superior sagittal sinus at the vertex with marked mass effect on the underlying frontal and parietal lobe with moderate degree of perilesional vasogenic edema. No midline shift or brain herniation. Findings are likely not significantly changed from 07/18/2021, accounting for differences in imaging technique. Paper Goods Machine Operator: PSCWiley Transcribe Date/Time: Aug 25 2021 12:32P Dictated by : CHELSEY VAUGHN MD This examination was interpreted and the report reviewed and electronically signed by: YEIMI HINSON MD on Aug 25 2021 12:53PM EST Results-Findings * * *Final Report* * * DATE OF EXAM: Aug 25 2021 12:34PM [facility] [id number] - CT BRAIN WO IVCON / PROCEDURE REASON: multiple diagnoses * * * * Physician Interpretation * * * * EXAMINATION: CT BRAIN WO IVCON HISTORY: Meningioma (HCC) Brain edema (HCC) Seizure (HCC) - - - - Neoplasm: head, metastatic, suspected - [id number] - - Worsening seizures,?? Meningioma - - TECHNIQUE: CT head without contrast. M: [id number] CT Dose-Length Product (DLP): 784 mGy*cm CT Dose Reduction Employed: Automated exposure control(AEC) and iterative recon COMPARISON: MRV and MRI brain 07/18/2021, MRI brain 04/22/2021. RESULT: Post-operative change: None. Acute change: No evidence of an acute infarct. Vasogenic edema associated with the meningioma, as detail below under mass lesion/mass effect section. Hemorrhage: No evidence of acute intracranial hemorrhage. Mass Lesion / Mass Effect: Large extra-axial mass centered at the posterior falx and superior sagittal sinus at the vertex. Determination of the precise margins of the mass for accurate measurements is not possible without IV contrast, the mass does not grossly appear significantly changed in size from 07/18/2021. Again seen is similar moderate perilesional vasogenic edema involving the adjacent dorsal left frontal lobe and superior parietal lobule, structures upon which the mass exerts marked mass effect. There is no midline shift or brain herniation. Chronic change: None apparent. Parenchyma: No significant parenchymal volume loss. Ventricles: Normal caliber and morphology. Other: The calvarium, skull base, imaged paranasal sinuses, mastoids, orbits and extracranial soft tissues are unremarkable. Shot Blast Equipment Operator (topogram) images: No additional findings. Result History CT BRAIN WO IVCON (Order #[id number]) on 08/25/2021 - Order Result History Report Result Information Status Provider Status Final result (08/25/2021 12:55 PM) Ordered Exam Performed Date and Time 08/25/2021 12:34 PM Resulting Agency [facility]NOT[facility]USE[facility]DIVISION OF RADIOLOGY AT [facility] [id number] documented in this encounterMercy [facility]. [facility]04-14-2022 History of Present illness Narrative* Florence Oseguera, RT(R) - 08/25/2021 11:40 AM EDT Radiology Service Progress Note PATIENT NAME: Watson Rodriguez DATE OF SERVICE: August 25, 2021 TIME: 1:39 PM PATIENT IDENTITY VERIFICATION COMPLETED USING TWO (2) IDENTIFIERS: Name and Date of confirmedby patient verbally. FALL SCREENING: Has the patient had 2 falls in the last year or 1 fall with injury or currently using an Ambulatory Assistive Device (Walker, Cane, Wheelchair, Crutches, etc.)? No PATIENT GENDER DATA: Male PATIENT RELEVANT IMPLANT DATA REVIEWED: Not Applicable RADIOLOGY DEPARTMENT: CT; Exam(s) Completed: Brain PERIPHERAL IV DATA: Not applicable SIGNED BY: RT Jayden(R) August 25, 2021 1:39 PM documented in this encounterMercy Health St. [facility]04-13-2022 Miscellaneous Notes* Telephone Encounter - Florencia Garrett RN - 08/24/2021 11:55 AM EDT LM for patient that a CT Head wo contrast was arranged for him for tomorrow (08/25) at [address] Florencia Garrett RN, BSN Edi Coordinator [facility] documented in this encounterMercy Health St. [facility]04-11-2022 Miscellaneous Notes* Telephone Encounter - Florencia Garrett RN - 08/22/2021 3:20 PM EDT Returned call to patient. I spoke with him earlier regarding his seizure and I focused on what Dr Devlin had recommended. he is aware we are following at this time for his seizures and I can not address the tinnitus or Trental/Vitamin E and he should reach out to appropriate provider. -Increase Vimpat to [address] Devlin felt his seizure activity last night warranted an ER visit and should that happen again, he should go to her ER. Patient verbalizes an understanding and will follow these recommendations. He has a VV with Dr Devlin in the am Florencia Garrett RN, BSN Edi Coordinator [facility] * Telephone Encounter - Seema Devine - 08/22/2021 1:59 PM EDT General Call Caller : Patient Contact Reason for Call : Patient has taken 200 mg. Of Ibuprofen 24 hrs. After having seizure. Patient has also takenTrentol and vitamin E; medication is causing tinnitus, patient is experiencing background headaches Patient requesting return call ? Yes * Telephone Encounter - Florencia Garrett RN - 08/22/2021 9:21 AM EDT Returned call to patient. He states he went to bed last night (Sunday, August 21) at 11pm with CPAP mask. Woke up ~ 12/;30 due to violent twitching of his Right leg. He reached over to his nightstand to grab his Clonazepam but fell out of bed. His R arm was flailing (which has never happened). Apparently his slipped the Clonazepam in his mouth and he bit her. He does not recall anything andevents are as reported to him by his . Seizure lasted about 7 minutes and he woke up on the floor about 1-1/2 hours later and went to bed. His day leading up to the seizure was uneventful He did notice some R foot edema (which is better) and states he weighs himself everyday and his weight is up 5#. Previously on VImpat 150mg BID and increased on 08/10 to 200mg in am and 150mg in PM. Stopped Trental and Vitamin E due to worsening Tinnitus off for one week and resumed this morning. Today he woke up at 8am and ate breakfast. Feels weak but otherwise ok. He has a VV scheduled with Dr Devlin tomorrow at 9am Will discuss with Dr Devlin and contact patient with his recommendations. Florencia Garrett RN, BSN Edi Coordinator [facility] * Telephone Encounter - Seema Devine - 08/22/2021 8:49 AM EDT Seizure Call Full Name of Person Calling : Watson Rodriguez Relationship to Patient : Self Contact Date of Seizure(s) : 08/21/21 Duration : 7 min. ER Visit : No History of Seizure : Yes documented in this encounterMercy Health St. [facility]09-01-2021 NoteHNO ID: [id number] Author: Kayden Goodwin Service: ? Author Type: ? Type: Procedures Filed: 01/12/2021 6:10 AM Note Text: EEG downloaded to main campus, electrode integrity restored, recording restarted.[facility]08-31-2021 NoteHNO ID: [id number] Author: Selina Candelario MD Service: Hospital Medicine Author Type: Physician Type: Progress Notes Filed: 01/11/2021 4:15 PM Note Text: HOSPITAL MEDICINE PROGRESS NOTE Hospital Medicine Attending: Selina Candelario MD NIGHT AND WEEKEND COVERAGE: Patient admitted to [facility] Hospitalist team [address]ina Candelario From 7am - 5pm, please contact pager [phone] for patient issues. From 5pm - 7am, please contact the Night Hospitalist on pager [phone] for patient issues. CC/HPI: breakthrough seizure SUBJECTIVE Patient continues to be asymptomatic with no further leg cramping/movement. Neurology recommending additional day on BEM off Keppra Objective BP 118/69 Pulse 85 Temp (Src) 98.1 (Oral) Resp 17 Ht 5' 11 (1.80m) Wt 183 lb (83.0kg) SpO2 96% BMI 25.53 kg/(m2). O2 Therapy: Room Air Physical Exam: Constitutional: alert and oriented x 3 HEENT: supple neck Cardiovascular: RRR, no murmur Respiratory: clear bilaterally Abdomen: +BS, nontender to palpation Musculoskeletal: ROM intact, no edema Neuro: grossly intact, moving all extremities Skin: no new lesions Lines, Drains, and Airways Line Peripheral 01/09/21 0100 Short Left Forearm 22 Gauge 2 days Reviewed lines, drains, AND airways. Need to be continued Medications: Reviewed Current Facility-Administered Medications Medication Dose Route Frequency - NaCl 0.9% iv flush bag 20 mL INTRAVENOUS PRN - sodium chloride 0.9 % (flush) 3-5 mL (BD POSIFLUSH) 3-5 mL INTRAVENOUS q 12 H - ondansetron 4 mg tab(s) (ZOFRAN) 4 mg ORAL q 6 H PRN Or - ondansetron (PF) 4 mg injection (ZOFRAN) 4 mg INTRAVENOUS q 6 H PRN - polyethylene glycol 3350 17 g packet (MIRALAX, GLYCOLAX) 17 g ORAL DAILY PRN - acetaminophen 650 mg tab(s) (TYLENOL) 650 mg ORAL q 6 H PRN - aspirin, enteric coated 81 mg tab(s) 81 mg ORAL DAILY - clopidogrel 75 mg tab(s) (PLAVIX) 75 mg ORAL DAILY - rosuvastatin 40 mg tab(s) (CRESTOR) 40 mg ORAL DAILY Diagnostic tests reviewed: Most recent labs and imaging results. Recent Labs 01/08/21214412/24/20 0759 WBC 4.68 3.75 HB 15.2 16.1 HCT 43.3 44.4 PLT 178 185 MCV 89.6 86.7 Recent Labs 01/08/21214412/24/20 0800 NA 139 137 K 4.0 3.9 CHLOR 102 104 CO2 26 24 BUN 14 15 CREAT 1.09 1.05 GLUC 93 95 ANION 11 9 CA 9.5 9.6 TPROT 6.7 6.8 ALB 4.6 4.5 TBILI 0.4 0.7 ALKPHOS 71 69 AST 28 20 ALT 27 21 Recent Labs 01/08/212145 CK 60 IMAGING None Assessment/Plan 60 yo with history of meningioma s/p GK in 08/2020 admitted with concern for recurrent R leg seizures. ? ? 1. R leg cramping/weakness concerning for seizure - BEM monitoring for 72 hours per neurology - can stop earlier if any seizure is captured - Off keppra while on BEM 2. CAD s/p PCI in 2013: Continue aspirin, statin and Plavix Medication and Non-Pharmacologic VTE Prophylaxis/Anticoagulants Anticoagulant AND Antiplatelet Medications (From admission, onward) Start Dose Route Frequency Last Action Ordered Stop 01/09/21 0900 aspirin, enteric coated 81 mg tab(s) 81 mg ORAL DAILY Given, 01/11 1010 01/08/212114 -- 01/09/21 0900 clopidogrel 75 mg tab(s) (PLAVIX) 75 mg ORAL DAILY Given, 01/11 1010 01/08/212114 -- 01/08/212114 activity - mobilize patient (va,oh) Plan of care discussed with: Provider and Patient Some elements of the exam, assessment and plan have been copied from my note from yesterday dated 01/10/2021, have been reviewed for accuracy and updated with any changes SIGNATURE: Selina Candelario MD PATIENT NAME: Watson Rodriguez DATE: 01/11/2021 TIME: 4:15 PM PAGER/CONTACT #: [phone] NoteHNO ID: [id number] Author: Selina Candelario MD Service: Hospital Medicine Author Type: Physician Type: Progress Notes Filed: 01/10/2021 10:36 AM Note Text: HOSPITAL MEDICINE PROGRESS NOTE Hospital Medicine Attending: Selina Candelario MD NIGHT AND WEEKEND COVERAGE: Patient admitted to [facility] Hospitalist team [address] Selina Candelario From 7am - 5pm, please contact pager [phone] for patient issues. From 5pm - 7am, please contact the Night Hospitalist on pager [phone] for patient issues. CC/HPI: breakthrough seizure SUBJECTIVE Patient continues to be on BEM without any leg movement/cramping/spasms. He remains off keppra. He is asking how long he needs to continue BEM monitoring - discussed that neurology recommended 48 hours which will be tomorrow Objective BP 135/70 Pulse 64 Temp (Src) 97.7 (Oral) Resp 21 Ht 5' 11 (1.80m) Wt 183 lb (83.0kg) SpO2 98% BMI 25.53 kg/(m2). O2 Therapy: Room Air Physical Exam: Constitutional: alert and oriented x 3 HEENT: supple neck Cardiovascular: RRR, no murmur Respiratory: clear bilaterally Abdomen: +BS, nontender to palpation Musculoskeletal: ROM intact, no edema Neuro: grossly intact, moving all extremities Skin: no new lesions Lines, Drains, and Airways Line Peripheral 01/09/21 0100 Short Left Forearm 22 Gauge 1 day Reviewed lines, drains, AND airways. Need to be continued Medications: Reviewed Current Facility-Administered Medications Medication Dose Route Frequency - NaCl 0.9% iv flush bag 20 mL INTRAVENOUS PRN - sodium chloride 0.9 % (flush) 3-5 mL (BD POSIFLUSH) 3-5 mL INTRAVENOUS q 12 H - ondansetron 4 mg tab(s) (ZOFRAN) 4 mg ORAL q 6 H PRN Or - ondansetron (PF) 4 mg injection (ZOFRAN) 4 mg INTRAVENOUS q 6 H PRN - polyethylene glycol 3350 17 g packet (MIRALAX, GLYCOLAX) 17 g ORAL DAILY PRN - acetaminophen 650 mg tab(s) (TYLENOL) 650 mg ORAL q 6 H PRN - aspirin, enteric coated 81 mg tab(s) 81 mg ORAL DAILY - clopidogrel 75 mg tab(s) (PLAVIX) 75 mg ORAL DAILY - rosuvastatin 40 mg tab(s) (CRESTOR) 40 mg ORAL DAILY Diagnostic tests reviewed: Most recent labs and imaging results. Recent Labs 01/08/21214412/24/20 0759 WBC 4.68 3.75 HB 15.2 16.1 HCT 43.3 44.4 PLT 178 185 MCV 89.6 86.7 Recent Labs 01/08/21214412/24/20 0800 NA 139 137 K 4.0 3.9 CHLOR 102 104 CO2 26 24 BUN 14 15 CREAT 1.09 1.05 GLUC 93 95 ANION 11 9 CA 9.5 9.6 TPROT 6.7 6.8 ALB 4.6 4.5 TBILI 0.4 0.7 ALKPHOS 71 69 AST 28 20 ALT 27 21 Recent Labs 01/08/212145 CK 60 IMAGING None Assessment/Plan 60 yo with history of meningioma s/p GK in 08/2020 admitted with concern for recurrent R leg seizures. ? ? 1. R leg cramping/weakness concerning for seizure - Neurology consulted - BEM monitoring for 48 hours per neurology - can stop earlier if any seizure is captured - Off keppra while on BEM 2. CAD s/p PCI in 2013: Continue aspirin, statin and Plavix Medication and Non-Pharmacologic VTE Prophylaxis/Anticoagulants Anticoagulant AND Antiplatelet Medications (From admission, onward) Start Dose Route Frequency Last Action Ordered Stop 01/09/21 09 aspirin, enteric coated 81 mg tab(s) 81 mg ORAL DAILY Given, 01/10 91701/08/212114 -- 01/09/21899 clopidogrel 75 mg tab(s) (PLAVIX) 75 mg ORAL DAILY Given, 01/10 91701/08/212114 -- 01/08/212114 activity - mobilize patient (va,oh) Plan of care discussed with: Provider and Patient Some elements of the exam, assessment and plan have been copied from my note from yesterday dated 01/09/2021, have been reviewed for accuracy and updated with any changes SIGNATURE: Selina Candelario MD PATIENT NAME: Watson Rodriguez DATE: 01/10/2021 TIME: 10:36 AM PAGER/CONTACT #: [phone] NoteHNO ID: [id number] Author: Hoang Garcia Service: Neurology General Author Type: ? Type: Procedures Filed: 01/09/2021 2:18 PM Note Text: EEG down loaded to main campus, electrode integrity restored. Recording restarted. Discussed with [facility]08-29-2021 NoteHNO ID: [id number] Author: Selina Candelario MD Service: Hospital Medicine Author Type: Physician Type: Progress Notes Filed: 01/09/2021 1:28 PM Note Text: HOSPITAL MEDICINE PROGRESS NOTE Hospital Medicine Attending: Selina Candelario MD NIGHT AND WEEKEND COVERAGE: Patient admitted to [facility] Hospitalist team [address] Selina Candelario From 7am - 5pm, please contact pager [phone] for patient issues. From 5pm - 7am, please contact the Night Hospitalist on pager [phone] for patient issues. CC/HPI: breakthrough seizure SUBJECTIVE Patient on BEM which he states was started around 1am yesterday. He denies any R foot cramping/seizure like activity, but did have some R foot irritability which woke him up from sleep at 4am Objective BP 101/62 Pulse 58 Temp (Src) 97.7 (Oral) Resp 16 Ht 5' 11 (1.80m) Wt 183 lb (83.0kg) SpO2 98% BMI 25.53 kg/(m2). O2 Therapy: Room Air, %FIO2: 21 Physical Exam: Constitutional: alert and oriented x 3 HEENT: supple neck Cardiovascular: RRR, no murmur Respiratory: clear bilaterally Abdomen: +BS, nontender to palpation Musculoskeletal: ROM intact, no edema Neuro: grossly intact, moving all extremities Skin: no new lesions Lines, Drains, and Airways Line Peripheral 01/09/21 0100 Short Left Forearm 22 Gauge <1 day Reviewed lines, drains, AND airways. Need to be continued Medications: Reviewed Current Facility-Administered Medications Medication Dose Route Frequency - NaCl 0.9% iv flush bag 20 mL INTRAVENOUS PRN - sodium chloride 0.9 % (flush) 3-5 mL (BD POSIFLUSH) 3-5 mL INTRAVENOUS q 12 H - ondansetron 4 mg tab(s) (ZOFRAN) 4 mg ORAL q 6 H PRN Or - ondansetron (PF) 4 mg injection (ZOFRAN) 4 mg INTRAVENOUS q 6 H PRN - polyethylene glycol 3350 17 g packet (MIRALAX, GLYCOLAX) 17 g ORAL DAILY PRN - acetaminophen 650 mg tab(s) (TYLENOL) 650 mg ORAL q 6 H PRN - aspirin, enteric coated 81 mg tab(s) 81 mg ORAL DAILY - clopidogrel 75 mg tab(s) (PLAVIX) 75 mg ORAL DAILY - rosuvastatin 40 mg tab(s) (CRESTOR) 40 mg ORAL DAILY Diagnostic tests reviewed: Most recent labs and imaging results. Recent Labs 01/08/21214412/24/20 0759 WBC 4.68 3.75 HB 15.2 16.1 HCT 43.3 44.4 PLT 178 185 MCV 89.6 86.7 Recent Labs 01/08/21214412/24/20 0800 NA 139 137 K 4.0 3.9 CHLOR 102 104 CO2 26 24 BUN 14 15 CREAT 1.09 1.05 GLUC 93 95 ANION 11 9 CA 9.5 9.6 TPROT 6.7 6.8 ALB 4.6 4.5 TBILI 0.4 0.7 ALKPHOS 71 69 AST 28 20 ALT 27 21 Recent Labs 01/08/212145 CK 60 IMAGING None Assessment/Plan 60 yo with history of meningioma s/p GK in 08/2020 admitted with concern for recurrent R leg seizures. ? ? 1. R leg cramping/weakness concerning for seizure - Neurology consulted - BEM monitoring for 48 hours per neurology - can stop earlier if any seizure is captured - Off keppra while on BEM 2. CAD s/p PCI in 2013: Continue aspirin, statin and Plavix Medication and Non-Pharmacologic VTE Prophylaxis/Anticoagulants Anticoagulant AND Antiplatelet Medications (From admission, onward) Start Dose Route Frequency Last Action Ordered Stop 01/09/21899 aspirin, enteric coated 81 mg tab(s) 81 mg ORAL DAILY Given, 01/09 85801/08/212114 -- 01/09/21899 clopidogrel 75 mg tab(s) (PLAVIX) 75 mg ORAL DAILY Given, 01/09 85801/08/212114 -- 01/08/212114 activity - mobilize patient (va,sc) Plan of care discussed with: Provider, Patient and Consultants: Neurology attending Some elements of the exam, assessment and plan have been copied from my note from yesterday dated 01/08/2021, have been reviewed for accuracy and updated with any changes SIGNATURE: Selina Candelario MD PATIENT NAME: Watson Rodriguez DATE: 01/09/2021 TIME: 1:27 PM PAGER/CONTACT #: [phone] NoteHNO ID: [id number] Author: Cyndy Ryan Service: ? Author Type: ? Type: Procedures Filed: 01/09/2021 8:45 AM Note Text: [facility] of Past illness Narrative* Problem Noted Date Resolved Date Recurrent seizures 01/08/2021 01/12/2021 documented as of this encounter (statuses as of 08/09/2021) [facility]08-28-2021 History of Past illness Narrative* Problem Noted Date Resolved Date Recurrent seizures 01/08/2021 01/12/2021 documented as of this encounter (statuses as of 08/22/2021) [facility]08-28-2021 History of Past illness Narrative* Problem Noted Date Resolved Date Recurrent seizures 01/08/2021 01/12/2021 documented as of this encounter (statuses as of 08/26/2021) [facility]08-28-2021 History of Past illness Narrative* Problem Noted Date Resolved Date Recurrent seizures 01/08/2021 01/12/2021 documented as of this encounter (statuses as of 08/26/2021) [address]28-2021 History of Past illness Narrative* Problem Noted Date Resolved Date Recurrent seizures 01/08/2021 01/12/2021 documented as of this encounter (statuses as of 09/08/2021) [address]28-2021 History of Past illness Narrative* Problem Noted Date Resolved Date Recurrent seizures 01/08/2021 01/12/2021 documented as of this encounter (statuses as of 09/12/2021) [address] History of Past illness Narrative* Problem Noted Date Resolved Date Recurrent seizures 01/08/2021 01/12/2021 documented as of this encounter (statuses as of 09/12/2021) [address]28-2021 History of Past illness Narrative* Problem Noted Date Resolved Date Recurrent seizures 01/08/2021 01/12/2021 documented as of this encounter (statuses as of 09/13/2021) [address]-2021 History of Past illness Narrative* Problem Noted Date Resolved Date Recurrent seizures 01/08/2021 01/12/2021 documented as of this encounter (statuses as of 09/13/2021) [address]-2021 History of Past illness Narrative* Problem Noted Date Resolved Date Recurrent seizures 01/08/2021 01/12/2021 documented as of this encounter (statuses as of 09/13/2021) [address]-2021 History of Past illness Narrative* Problem Noted Date Resolved Date Recurrent seizures 01/08/2021 01/12/2021 documented as of this encounter (statuses as of 09/14/2021) [address]-2021 History of Past illness Narrative* Problem Noted Date Resolved Date Recurrent seizures 01/08/2021 01/12/2021 documented as of this encounter (statuses as of 09/19/2021) [address]-2021 History of Past illness Narrative* Problem Noted Date Resolved Date Recurrent seizures 01/08/2021 01/12/2021 documented as of this encounter (statuses as of 10/03/2021) [address]-2021 History of Past illness Narrative* Problem Noted Date Resolved Date Recurrent seizures 01/08/2021 01/12/2021 documented as of this encounter (statuses as of 10/05/2021) [address]2021 History of Past illness Narrative* Problem Noted Date Resolved Date Recurrent seizures 01/08/2021 01/12/2021 documented as of this encounter (statuses as of 10/05/2021) [address]-2021 History of Past illness Narrative* Problem Noted Date Resolved Date Recurrent seizures 01/08/2021 01/12/2021 documented as of this encounter (statuses as of 10/12/2021) [address]-2021 History of Past illness Narrative* Problem Noted Date Resolved Date Recurrent seizures 01/08/2021 01/12/2021 documented as of this encounter (statuses as of 10/18/2021) [address]2021 History of Past illness Narrative* Problem Noted Date Resolved Date Recurrent seizures 01/08/2021 01/12/2021 documented as of this encounter (statuses as of 11/01/2021) [address]2021 History of Past illness Narrative* Problem Noted Date Resolved Date Recurrent seizures 01/08/2021 01/12/2021 documented as of this encounter (statuses as of 11/04/2021) [address]2021 History of Past illness Narrative* Problem Noted Date Resolved Date Recurrent seizures 01/08/2021 01/12/2021 documented as of this encounter (statuses as of 11/07/2021) [address]2021 History of Past illness Narrative* Problem Noted Date Resolved Date Recurrent seizures 01/08/2021 01/12/2021 documented as of this encounter (statuses as of 11/21/2021) [address]-2021 History of Past illness Narrative* Problem Noted Date Resolved Date Recurrent seizures 01/08/2021 01/12/2021 documented as of this encounter (statuses as of 11/21/2021) [address]-2021 History of Past illness Narrative* Problem Noted Date Resolved Date Recurrent seizures 01/08/2021 01/12/2021 documented as of this encounter (statuses as of 11/22/2021) [address]2021 History of Past illness Narrative* Problem Noted Date Resolved Date Recurrent seizures 01/08/2021 01/12/2021 documented as of this encounter (statuses as of 11/29/2021) [address] History of Past illness Narrative* Problem Noted Date Resolved Date Recurrent seizures 01/08/2021 01/12/2021 documented as of this encounter (statuses as of 12/21/2021) [address]2021 History of Past illness Narrative* Problem Noted Date Resolved Date Recurrent seizures 01/08/2021 01/12/2021 documented as of this encounter (statuses as of 12/21/2021) [address]-2021 History of Past illness Narrative* Problem Noted Date Resolved Date Recurrent seizures 01/08/2021 01/12/2021 documented as of this encounter (statuses as of 12/22/2021) [address]-2021 History of Past illness Narrative* Problem Noted Date Resolved Date Recurrent seizures 01/08/2021 01/12/2021 documented as of this encounter (statuses as of 01/06/2022) [address]-2021 History of Past illness Narrative* Problem Noted Date Resolved Date Recurrent seizures 01/08/2021 01/12/2021 documented as of this encounter (statuses as of 01/17/2022) [address]-2021 History of Past illness Narrative* Problem Noted Date Resolved Date Recurrent seizures 01/08/2021 01/12/2021 documented as of this encounter (statuses as of 01/18/2022) [address]-2021 History of Past illness Narrative* Problem Noted Date Resolved Date Recurrent seizures 01/08/2021 01/12/2021 documented as of this encounter (statuses as of 01/27/2022) [address]-2021 History of Past illness Narrative* Problem Noted Date Resolved Date Recurrent seizures 01/08/2021 01/12/2021 documented as of this encounter (statuses as of 01/30/2022) [address]-2021 History of Past illness Narrative* Problem Noted Date Resolved Date Recurrent seizures 01/08/2021 01/12/2021 documented as of this encounter (statuses as of 01/30/2022) [address]-2021 History of Past illness Narrative* Problem Noted Date Resolved Date Recurrent seizures 01/08/2021 01/12/2021 documented as of this encounter (statuses as of 01/30/2022) [address]2021 History of Past illness Narrative* Problem Noted Date Resolved Date Recurrent seizures 01/08/2021 01/12/2021 documented as of this encounter (statuses as of 02/01/2022) [address]-2021 History of Past illness Narrative* Problem Noted Date Resolved Date Recurrent seizures 01/08/2021 01/12/2021 documented as of this encounter (statuses as of 02/02/2022) [address]-2021 History of Past illness Narrative* Problem Noted Date Resolved Date Recurrent seizures 01/08/2021 01/12/2021 documented as of this encounter (statuses as of 02/03/2022) [address]-2021 History of Past illness Narrative* Problem Noted Date Resolved Date Recurrent seizures 01/08/2021 01/12/2021 documented as of this encounter (statuses as of 02/06/2022) [address]-2021 History of Past illness Narrative* Problem Noted Date Resolved Date Recurrent seizures 01/08/2021 01/12/2021 documented as of this encounter (statuses as of 02/10/2022) [address]2021 History of Past illness Narrative* Problem Noted Date Resolved Date Recurrent seizures 01/08/2021 01/12/2021 documented as of this encounter (statuses as of 02/10/2022) [address]-2021 History of Past illness Narrative* Problem Noted Date Resolved Date Recurrent seizures 01/08/2021 01/12/2021 documented as of this encounter (statuses as of 02/16/2022) [address]-2021 History of Past illness Narrative* Problem Noted Date Resolved Date Recurrent seizures 01/08/2021 01/12/2021 documented as of this encounter (statuses as of 02/20/2022) [address]-2021 History of Past illness Narrative* Problem Noted Date Resolved Date Recurrent seizures 01/08/2021 01/12/2021 documented as of this encounter (statuses as of 02/21/2022) [address]28-2021 History of Past illness Narrative* Problem Noted Date Resolved Date Recurrent seizures 01/08/2021 01/12/2021 documented as of this encounter (statuses as of 02/23/2022) [address]28-2021 History of Past illness Narrative* Problem Noted Date Resolved Date Recurrent seizures 01/08/2021 01/12/2021 documented as of this encounter (statuses as of 02/27/2022) [address]28-2021 History of Past illness Narrative* Problem Noted Date Resolved Date Recurrent seizures 01/08/2021 01/12/2021 documented as of this encounter (statuses as of 02/28/2022) [address]28-2021 History of Past illness Narrative* Problem Noted Date Resolved Date Recurrent seizures 01/08/2021 01/12/2021 documented as of this encounter (statuses as of 03/02/2022) [address]28-2021 History of Past illness Narrative* Problem Noted Date Resolved Date Recurrent seizures 01/08/2021 01/12/2021 documented as of this encounter (statuses as of 03/13/2022) [address]28-2021 History of Past illness Narrative* Problem Noted Date Resolved Date Recurrent seizures 01/08/2021 01/12/2021 documented as of this encounter (statuses as of 03/20/2022) [address]28-2021 History of Past illness Narrative* Problem Noted Date Resolved Date Recurrent seizures 01/08/2021 01/12/2021 documented as of this encounter (statuses as of 03/21/2022) [address]28-2021 History of Past illness Narrative* Problem Noted Date Resolved Date Recurrent seizures 01/08/2021 01/12/2021 documented as of this encounter (statuses as of 03/27/2022) [address]28-2021 History of Past illness Narrative* Problem Noted Date Resolved Date Recurrent seizures 01/08/2021 01/12/2021 documented as of this encounter (statuses as of 03/31/2022) [address]28-2021 History of Past illness Narrative* Problem Noted Date Resolved Date Recurrent seizures 01/08/2021 01/12/2021 documented as of this encounter (statuses as of 04/04/2022) [address]28-2021 History of Past illness Narrative* Problem Noted Date Resolved Date Recurrent seizures 01/08/2021 01/12/2021 documented as of this encounter (statuses as of 04/10/2022) [address]28-2021 History of Past illness Narrative* Problem Noted Date Resolved Date Recurrent seizures 01/08/2021 01/12/2021 documented as of this encounter (statuses as of 04/10/2022) [address]28-2021 History of Past illness Narrative* Problem Noted Date Resolved Date Recurrent seizures 01/08/2021 01/12/2021 documented as of this encounter (statuses as of 04/11/2022) [address]28-2021 History of Past illness Narrative* Problem Noted Date Resolved Date Recurrent seizures 01/08/2021 01/12/2021 documented as of this encounter (statuses as of 04/24/2022) [address]28-2021 History of Past illness Narrative* Problem Noted Date Resolved Date Recurrent seizures 01/08/2021 01/12/2021 documented as of this encounter (statuses as of 04/24/2022) [address]28-2021 History of Past illness Narrative* Problem Noted Date Resolved Date Recurrent seizures 01/08/2021 01/12/2021 documented as of this encounter (statuses as of 04/24/2022) [address]28-2021 History of Past illness Narrative* Problem Noted Date Resolved Date Recurrent seizures 01/08/2021 01/12/2021 documented as of this encounter (statuses as of 05/02/2022) [address]28-2021 History of Past illness Narrative* Problem Noted Date Resolved Date Recurrent seizures 01/08/2021 01/12/2021 documented as of this encounter (statuses as of 05/20/2022) [address]28-2021 History of Past illness Narrative* Problem Noted Date Resolved Date Recurrent seizures 01/08/2021 01/12/2021 documented as of this encounter (statuses as of 05/30/2022) [address]-2021 History of Past illness Narrative* Problem Noted Date Resolved Date Recurrent seizures 01/08/2021 01/12/2021 documented as of this encounter (statuses as of 06/07/2022) [address]28-2021 History of Past illness Narrative* Problem Noted Date Resolved Date Recurrent seizures 01/08/2021 01/12/2021 documented as of this encounter (statuses as of 06/09/2022) [address]-2021 History of Past illness Narrative* Problem Noted Date Resolved Date Recurrent seizures 01/08/2021 01/12/2021 documented as of this encounter (statuses as of 06/19/2022) [address]28-2021 History of Past illness Narrative* Problem Noted Date Resolved Date Recurrent seizures 01/08/2021 01/12/2021 documented as of this encounter (statuses as of 06/19/2022) [address]2021 History of Past illness Narrative* Problem Noted Date Resolved Date Recurrent seizures 01/08/2021 01/12/2021 documented as of this encounter (statuses as of 06/28/2022) [address]2021 History of Past illness Narrative* Problem Noted Date Resolved Date Recurrent seizures 01/08/2021 01/12/2021 documented as of this encounter (statuses as of 07/31/2022) [address]-2021 History of Past illness Narrative* Problem Noted Date Resolved Date Recurrent seizures 01/08/2021 01/12/2021 documented as of this encounter (statuses as of 08/03/2022) [address]-2021 History of Past illness Narrative* Problem Noted Date Resolved Date Recurrent seizures 01/08/2021 01/12/2021 documented as of this encounter (statuses as of 08/03/2022) [address]-2021 History of Past illness Narrative* Problem Noted Date Resolved Date Recurrent seizures 01/08/2021 01/12/2021 documented as of this encounter (statuses as of 08/18/2022) [address]-2021 History of Past illness Narrative* Problem Noted Date Resolved Date Recurrent seizures 01/08/2021 01/12/2021 documented as of this encounter (statuses as of 08/24/2022) [address]-2021 History of Past illness Narrative* Problem Noted Date Resolved Date Recurrent seizures 01/08/2021 01/12/2021 documented as of this encounter (statuses as of 08/31/2022) [address] History of Past illness Narrative* Problem Noted Date Resolved Date Recurrent seizures 01/08/2021 01/12/2021 documented as of this encounter (statuses as of 09/12/2022) [address]2021 History of Past illness Narrative* Problem Noted Date Resolved Date Recurrent seizures 01/08/2021 01/12/2021 documented as of this encounter (statuses as of 11/07/2022) [address]-2021 History of Past illness Narrative* Problem Noted Date Diagnosed Date Resolved Date Recurrent seizures 01/08/2021 1 documented as of this encounter (statuses as of 11/21/2022) [address]2021 History of Past illness Narrative* Problem Noted Date Diagnosed Date Resolved Date Recurrent seizures 01/08/2021 1 documented as of this encounter (statuses as of 11/22/2022) [address]2021 History of Past illness Narrative* Problem Noted Date Diagnosed Date Resolved Date Recurrent seizures 01/08/2021 1 documented as of this encounter (statuses as of 11/30/2022) [address]2021 History of Past illness Narrative* Problem Noted Date Diagnosed Date Resolved Date Recurrent seizures 01/08/2021 1 documented as of this encounter (statuses as of 11/30/2022) [address]2021 History of Past illness Narrative* Problem Noted Date Diagnosed Date Resolved Date Recurrent seizures 01/08/2021 1 documented as of this encounter (statuses as of 12/29/2022) [address]2021 History of Past illness Narrative* Problem Noted Date Diagnosed Date Resolved Date Recurrent seizures 01/08/2021 1 documented as of this encounter (statuses as of 01/03/2023) [address]28-2021 History of Past illness Narrative* Problem Noted Date Diagnosed Date Resolved Date Recurrent seizures 01/08/2021 1 documented as of this encounter (statuses as of 01/03/2023) [address]28-2021 History of Past illness Narrative* Problem Noted Date Diagnosed Date Resolved Date Recurrent seizures 01/08/2021 1 documented as of this encounter (statuses as of 01/19/2023) [address]28-2021 History of Past illness Narrative* Problem Noted Date Diagnosed Date Resolved Date Recurrent seizures 01/08/2021 1 documented as of this encounter (statuses as of 01/20/2023) [address]28-2021 History of Past illness Narrative* Problem Noted Date Diagnosed Date Resolved Date Recurrent seizures 01/08/2021 1 documented as of this encounter (statuses as of 01/27/2023) [address]28-2021 History of Past illness Narrative* Problem Noted Date Diagnosed Date Resolved Date Recurrent seizures 01/08/2021 1 documented as of this encounter (statuses as of 01/29/2023) [address]28-2021 History of Past illness Narrative* Problem Noted Date Diagnosed Date Resolved Date Recurrent seizures 01/08/2021 1 documented as of this encounter (statuses as of 01/30/2023) [address]28-2021 History of Past illness Narrative* Problem Noted Date Diagnosed Date Resolved Date Recurrent seizures 01/08/2021 1 documented as of this encounter (statuses as of 02/03/2023) [address]28-2021 History of Past illness Narrative* Problem Noted Date Diagnosed Date Resolved Date Recurrent seizures 01/08/2021 1 documented as of this encounter (statuses as of 02/16/2023) [address]28-2021 History of Past illness Narrative* Problem Noted Date Diagnosed Date Resolved Date Recurrent seizures 01/08/2021 1 documented as of this encounter (statuses as of 02/17/2023) [address]28-2021 History of Past illness Narrative* Problem Noted Date Diagnosed Date Resolved Date Recurrent seizures 01/08/2021 1 documented as of this encounter (statuses as of 02/23/2023) [address]28-2021 History of Past illness Narrative* Problem Noted Date Diagnosed Date Resolved Date Recurrent seizures 01/08/2021 1 documented as of this encounter (statuses as of 02/24/2023) [address]28-2021 History of Past illness Narrative* Problem Noted Date Diagnosed Date Resolved Date Recurrent seizures 01/08/2021 1 documented as of this encounter (statuses as of 03/13/2023) [address]28-2021 History of Past illness Narrative* Problem Noted Date Diagnosed Date Resolved Date Recurrent seizures 01/08/2021 1 documented as of this encounter (statuses as of 03/18/2023) [address]28-2021 History of Past illness Narrative* Problem Noted Date Diagnosed Date Resolved Date Recurrent seizures 01/08/2021 1 documented as of this encounter (statuses as of 03/18/2023) [address]28-2021 History of Past illness Narrative* Problem Noted Date Diagnosed Date Resolved Date Recurrent seizures 01/08/2021 1 documented as of this encounter (statuses as of 03/18/2023) [address]28-2021 History of Past illness Narrative* Problem Noted Date Diagnosed Date Resolved Date Recurrent seizures 01/08/2021 1 documented as of this encounter (statuses as of 03/18/2023) [address]28-2021 History of Past illness Narrative* Problem Noted Date Diagnosed Date Resolved Date Recurrent seizures 01/08/2021 1 documented as of this encounter (statuses as of 03/20/2023) [address]28-2021 History of Past illness Narrative* Problem Noted Date Diagnosed Date Resolved Date Recurrent seizures 01/08/2021 1 documented as of this encounter (statuses as of 03/22/2023) [address]28-2021 History of Past illness Narrative* Problem Noted Date Diagnosed Date Resolved Date Recurrent seizures 01/08/2021 1 documented as of this encounter (statuses as of 03/28/2023) [address]28-2021 History of Past illness Narrative* Problem Noted Date Diagnosed Date Resolved Date Recurrent seizures 01/08/2021 1 documented as of this encounter (statuses as of 03/29/2023) [address]28-2021 History of Past illness Narrative* Problem Noted Date Diagnosed Date Resolved Date Recurrent seizures 01/08/2021 1 documented as of this encounter (statuses as of 03/30/2023) [address]28-2021 History of Past illness Narrative* Problem Noted Date Diagnosed Date Resolved Date Recurrent seizures 01/08/2021 1 documented as of this encounter (statuses as of 04/02/2023) [address]28-2021 History of Past illness Narrative* Problem Noted Date Diagnosed Date Resolved Date Recurrent seizures 01/08/2021 1 documented as of this encounter (statuses as of 04/26/2023) [address]28-2021 History of Past illness Narrative* Problem Noted Date Diagnosed Date Resolved Date Recurrent seizures 01/08/2021 1 documented as of this encounter (statuses as of 05/02/2023) [address]28-2021 History of Past illness Narrative* Problem Noted Date Diagnosed Date Resolved Date Recurrent seizures 01/08/2021 1 documented as of this encounter (statuses as of 06/25/2023) [address]28-2021 History of Past illness Narrative* Problem Noted Date Diagnosed Date Resolved Date Recurrent seizures 01/08/2021 1 documented as of this encounter (statuses as of 07/20/2023) [address]28-2021 History of Past illness Narrative* Problem Noted Date Diagnosed Date Resolved Date Recurrent seizures 01/08/2021 1 documented as of this encounter (statuses as of 08/01/2023) [address]28-2021 History of Past illness Narrative* Problem Noted Date Diagnosed Date Resolved Date Recurrent seizures 01/08/2021 1 documented as of this encounter (statuses as of 08/13/2023) [address]28-2021 History of Past illness Narrative* Problem Noted Date Diagnosed Date Resolved Date Recurrent seizures 01/08/2021 1 documented as of this encounter (statuses as of 08/31/2023) [address]28-2021 History of Past illness Narrative* Problem Noted Date Diagnosed Date Resolved Date Recurrent seizures 01/08/2021 1 documented as of this encounter (statuses as of 09/01/2023) [facility] NoteOccupational Therapy Performance Skills Evaluation Therapy Diagnosis: Rank Code Description Date of Onset 1 D32.9 Benign neoplasm of meninges, unspecified 01/09/2021 2 G40.909 Epilepsy, unspecified, not intractable, without 01/09/2021 status epilepticus 3 R53.1 Weakness 01/09/2021 Initial Evaluation Date: 01/04/21 Referring Clinician: Gris Neal MD Medical Diagnosis: MENINGIOMA, RECURRENT SEIZURES, WEAKNESS Date of Onset: 04/2020 sought medical follow up for R leg weakness while diagnosis related to back issues; had focal seizure affecting his RLE in July with MRI at that time which showed meningioma in brain followed by Gamma Knife radiation Past Medical History: L knee surrgery to repair meniscus 2016, [place] and heart stent 2012, elevated cholesterol Current Medications: aspirin, Rosuvastatin, Plavix, multiple vitamin, Keppra Demographics: Age: 60Y Gender: Male Primary Language: Togolese Preferred Language: Togolese Screening for COVID-19 Does the patient/client present any of the following symptoms? Response Symptoms Cough No Fever No Sore Throat No Shortness of Breath No Fatigue No New Confusion No Has the patient/client traveled outside of the state within the last 14 days to states with confirmed cases of COVID-19? No Has the patient/client been in contact with anyone with a confirmed or suspected diagnosis of COVID-19? No OCCUPATIONAL PROFILE AND HISTORY Basic ADLs: he is independent with all self care tasks Instrumental ADLs: he lives with his while she does much of the household tasks and he will typically do outdoor tasks although currently he is not mowing as advised to avoid the bouncing around that would cause; he does manage his [facility] PATIENT NAME: WATSON RODRIGUEZ K [address] 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 Traffic Violations: Patient does not have any traffic violations. Patient Report: Watson indicated that he continues to be aware of ongoing weakness in general and in his RLE while he is anxious to return to working out regularly although he is trying to do as much as he can on his own currently including walking quite a bit each day. He used to [facility] out [facility] several times/week and is hoping he can return there in the near future. Patient/Caregiver Goals: Patient and spouse/significant other's functional goals: to assure that Watson is capable of returning to safe operation of a motor vehicle Pain: Patient currently without complaints of pain. 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 OBJECTIVE / OCCUPATIONAL PERFORMANCE General Observation: Watson was very pleasant and cooperative throughout the session while his also present providing additional information as requested and appropriate. [facility] PATIENT NAME: WATSON RODRIGUEZ [facility] [address] MEDICAL REC #: [id number] [place] [address] ADMIT DATE: SERVICE DATE: 01/04/21 Occupational Therapy Assessment ATTENDING ЕЛЕНАY: VIVIAN DOCTOR Visual/Perceptual Screening: Correctve Lenses: Patient wears corrective lenses. Date of Last Eye Exam: 12/16/20 while current glasses about 1 year old Reading Skills: Higher level. 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 Hyperlipemia chronic Nonrheumatic aortic (valve) stenosis chronic Presence of stent in coronary artery January 15 13 [facility] Work Phone: Evaluation note* Diagnosis Onset Date Resolution Status Anteroseptal myocardial infarction chronic 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 Diagnosis Meningioma (HCC)- Primary Benign neoplasm of cerebral meninges [facility] Diagnosis Meningioma (HCC) Benign neoplasm of cerebral meninges Seizure (HCC) Other convulsions [facility] Diagnosis Encounter for therapeutic drug level monitoring- Primary Encounter for therapeutic drug monitoring [facility]* Diagnosis Meningioma (HCC) Benign neoplasm of cerebral meninges Recurrent seizures (HCC) Other forms of epilepsy and recurrent seizures without mention of intractable epilepsy Muscle spasticity Spasm of muscle Radionecrosis [facility] Seizure (HCC)- Primary Other convulsions [facility] Diagnosis Recurrent seizures (HCC)- Primary Other forms of epilepsy and recurrent seizures without mention of intractable epilepsy Meningioma (HCC) Benign neoplasm of cerebral meninges [facility] Diagnosis Meningioma (HCC) Benign neoplasm of cerebral meninges Recurrent seizures (HCC) Other forms of epilepsy and recurrent seizures without mention of intractable epilepsy Muscle spasticity Spasm of muscle Radionecrosis [facility] Diagnosis Recurrent seizures (HCC) Other forms of epilepsy and recurrent seizures without mention of intractable epilepsy [facility] Diagnosis Meningioma (HCC) Benign neoplasm of cerebral meninges Seizure (HCC) Other convulsions [facility]* Diagnosis Cervicocranial syndrome- Primary Meningioma (HCC) Benign neoplasm of cerebral meninges Tinnitus, bilateral Unspecified tinnitus [facility]* Diagnosis Impotence of organic origin- Primary [facility]* Diagnosis MELL (obstructive sleep apnea)- Primary Obstructive sleep apnea (adult) (pediatric) [facility]* Diagnosis Meningioma (HCC) Benign neoplasm of cerebral meninges Seizure (HCC) Other convulsions Brain edema (HCC) Cerebral edema Recurrent seizures (HCC) Other forms of epilepsy and recurrent seizures without mention of intractable epilepsy Muscle spasticity Spasm of muscle Radionecrosis [facility] Diagnosis Meningioma (HCC)- Primary Benign neoplasm of cerebral meninges Seizure (HCC) Other convulsions [facility] Diagnosis Meningioma (HCC)- Primary Benign neoplasm of cerebral meninges Seizure (HCC) Other convulsions Brain edema (HCC) Cerebral edema Coronary artery disease involving benton coronary artery of benton heart without angina pectoris Mixed hyperlipidemia Nonrheumatic aortic valve stenosis Aortic valve disorders MELL (obstructive sleep apnea) Obstructive sleep apnea (adult) (pediatric) Tinnitus, right ear Foot pain, right Pain in limb Screening for prostate cancer Special screening for malignant neoplasm of prostate [facility] Diagnosis Foot pain, right Pain in limb Numbness Disturbance of skin sensation [facility]* Diagnosis Numbness- Primary Disturbance of skin sensation Foot pain, right Pain in limb [facility]* Diagnosis Foot pain, right Pain in limb Numbness Disturbance of skin sensation [facility]* Diagnosis Chronic pain of right ankle- Primary [facility]* Diagnosis Benign neoplasm of meninges (HCC) Benign neoplasm of cerebral meninges Meningioma (HCC) Benign neoplasm of cerebral meninges Chronic pain of right ankle [facility]* Diagnosis COVID-19- Primary [facility]* Diagnosis Glioblastoma (HCC)- Primary Malignant neoplasm of brain, unspecified site Meningioma (HCC) Benign neoplasm of cerebral meninges Seizure (HCC) Other convulsions Recurrent seizures (HCC) Other forms of epilepsy and recurrent seizures without mention of intractable epilepsy [facility]* Diagnosis Seizure (HCC)- Primary Other convulsions [facility]* Diagnosis Recurrent seizures (HCC) Other forms of epilepsy and recurrent seizures without mention of intractable epilepsy Meningioma (HCC) Benign neoplasm of cerebral meninges Seizure (HCC) Other convulsions [facility]* Diagnosis Meningioma (HCC)- Primary Benign neoplasm of cerebral meninges [facility]* Diagnosis Meningioma (HCC)- Primary Benign neoplasm of cerebral meninges Brain edema (HCC) Cerebral edema [facility]* Diagnosis Meningioma (HCC) Benign neoplasm of cerebral meninges Seizure (HCC) Other convulsions [facility]* Diagnosis Brain tumor (HCC)- Primary Neoplasm of unspecified nature of brain [facility]* Diagnosis Brain tumor (HCC)- Primary Neoplasm of unspecified nature of brain Brain edema (HCC) Cerebral edema Encounter for antineoplastic immunotherapy [facility]* Diagnosis Brain edema (HCC)- Primary Cerebral edema [facility]* Diagnosis Meningioma (HCC)- Primary Benign neoplasm of cerebral meninges [facility]* Diagnosis Neck pain- Primary Cervicalgia Encounter for immunization Need for other specified prophylactic vaccination against single bacterial disease Hyperglycemia Other abnormal glucose Paresthesia Disturbance of skin sensation Meningioma (HCC) Benign neoplasm of cerebral meninges Seizure (HCC) Other convulsions Coronary artery disease involving benton coronary artery of benton heart without angina pectoris Neck mass Swelling, mass, or lump in head and neck [facility] Diagnosis Brain tumor (HCC) Neoplasm of unspecified nature of brain [facility]* Diagnosis Brain edema (HCC)- Primary Cerebral edema [facility]* Diagnosis Meningioma (HCC) Benign neoplasm of cerebral meninges Seizure (HCC) Other convulsions Brain edema (HCC) Cerebral edema [facility]* Diagnosis Meningioma (HCC)- Primary Benign neoplasm of cerebral meninges Brain edema (HCC) Cerebral edema [facility] Diagnosis Meningioma (HCC)- Primary Benign neoplasm of cerebral meninges Brain edema (HCC) Cerebral edema [facility]* Diagnosis Benign neoplasm of meninges (HCC)- Primary Benign neoplasm of cerebral meninges Atypical meningioma of brain (HCC) Benign neoplasm of cerebral meninges [facility]* Diagnosis Symptomatic localization-related epilepsy (HCC)- Primary Localization-related (focal) (partial) epilepsy and epileptic syndromes with simple partial seizures, without mention of intractable epilepsy Seizure (HCC) Other convulsions Meningioma (HCC) Benign neoplasm of cerebral meninges Focal motor seizure (HCC) Localization-related (focal) (partial) epilepsy and epileptic syndromes with simple partial seizures, without mention of intractable epilepsy Coronary artery disease involving benton coronary artery of benton heart without angina pectoris [facility]* Diagnosis Meningioma (HCC)- Primary Benign neoplasm of cerebral meninges [facility]* Diagnosis Meningioma (HCC) Benign neoplasm of cerebral meninges Seizure (HCC) Other convulsions [facility]* Diagnosis Meningioma (HCC)- Primary Benign neoplasm of cerebral meninges Nerve pain Neuralgia, neuritis, and radiculitis, unspecified Pain in right foot Pain in limb [facility]* Diagnosis Meningioma (HCC)- Primary Benign neoplasm of cerebral meninges Brain edema (HCC) Cerebral edema Seizure (HCC) Other convulsions Weakness Other malaise and fatigue Gait difficulty Abnormality of gait [facility] Diagnosis Meningioma (HCC)- Primary Benign neoplasm of cerebral meninges [facility]* Diagnosis Meningioma (HCC) Benign neoplasm of cerebral meninges Nerve pain Neuralgia, neuritis, and radiculitis, unspecified Pain in right foot Pain in limb documented [facility]* Diagnosis Coronary artery disease involving benton coronary artery of benton heart without angina pectoris- Primary documented in [facility]* Diagnosis Meningioma (HCC) Benign neoplasm of cerebral meninges Seizure (HCC) Other convulsions documented in this [facility] noteNo assessment information availableWJoint [facility] Work Phone: Evaluation note* Diagnosis Meningioma (HCC)- Primary Benign neoplasm of cerebral meninges Brain edema (HCC) Cerebral edema Seizure (HCC) Other convulsions Focal motor seizure (HCC) Localization-related (focal) (partial) epilepsy and epileptic syndromes with simple partial seizures, without mention of intractable epilepsy [facility]* Diagnosis MELL on CPAP- Primary Obstructive sleep apnea (adult) (pediatric) documented [facility]* Diagnosis MELL on CPAP- Primary Obstructive sleep apnea (adult) (pediatric) [facility] Diagnosis Encounter for screening for malignant neoplasm of colon- Primary Special screening for malignant neoplasms, colon Family history of colon cancer Family history of malignant neoplasm of gastrointestinal tract History of colonic polyps Personal history of colonic polyps documented [facility]* Diagnosis Foot pain, right- Primary Pain in limb Numbness Disturbance of skin sensation Neuroma Other benign neoplasm of connective and other soft tissue of unspecified site documented [facility] this 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* Diagnosis Meningioma (HCC)- Primary Benign neoplasm of cerebral meninges Seizures (HCC) Other convulsions [facility] Diagnosis Bursitis of right foot- Primary Numbness Disturbance of skin sensation Neuroma Other benign neoplasm of connective and other soft tissue of unspecified site documented 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 Diagnosis Bursitis of right foot Numbness Disturbance of skin sensation Neuroma Other benign neoplasm of connective and other soft tissue of unspecified site [facility] Diagnosis Meningioma (HCC) Benign neoplasm of cerebral meninges [facility] Diagnosis Neck mass Swelling, mass, or lump in head and neck documented [facility] Diagnosis Benign neoplasm of meninges (HCC) Benign neoplasm of cerebral meninges Atypical meningioma of brain (HCC) Benign neoplasm of cerebral meninges [facility] Diagnosis MELL on CPAP- Primary Obstructive sleep apnea (adult) (pediatric) documented [facility]* Diagnosis Meningioma- Primary Benign neoplasm of cerebral meninges [facility] Diagnosis Irregular heartbeat- Primary Cardiac dysrhythmia, unspecified Coronary artery disease involving benton coronary artery of benton heart without angina pectoris Mitral valve prolapse Mitral valve disorders [facility]* Diagnosis Onset Date Resolution Status Lipoma acute Personal history of colonic polyps acute [facility] Work Phone: Evaluation note* Diagnosis MELL on CPAP- Primary Obstructive sleep apnea (adult) (pediatric) documented [facility] Diagnosis Pain in right foot- Primary Pain in limb [facility]* Diagnosis Bursitis of right foot- Primary Foot pain, right Pain in limb [facility] Diagnosis Foot pain, right- Primary Pain in limb Bursitis of right foot [facility]* Diagnosis Meningioma (HCC) Benign neoplasm of cerebral meninges Glioblastoma (HCC) Malignant neoplasm of brain, unspecified site Radionecrosis [facility] Diagnosis MELL on CPAP- Primary Obstructive sleep apnea (adult) (pediatric) Symptomatic localization-related epilepsy (HCC) Localization-related (focal) (partial) epilepsy and epileptic syndromes with simple partial seizures, without mention of intractable epilepsy History of myocardial infarction Old myocardial infarction [facility] Diagnosis Meningioma (HCC)- Primary Benign neoplasm of cerebral meninges Recurrent seizures (HCC) Other forms of epilepsy and recurrent seizures without mention of intractable epilepsy Nerve pain Neuralgia, neuritis, and radiculitis, unspecified Gait difficulty Abnormality of gait Brain edema (HCC) Cerebral edema Pain in right foot Pain in limb Glioblastoma (HCC) Malignant neoplasm of brain, unspecified site [facility] Diagnosis Meningioma (HCC)- Primary Benign neoplasm of cerebral meninges [facility]* Diagnosis Pain in right foot- Primary Pain in limb [facility]* Diagnosis Meningioma (HCC)- Primary Benign neoplasm of cerebral meninges Brain edema (HCC) Cerebral edema Seizure (HCC) Other convulsions Coronary artery disease involving benton coronary artery of benton heart without angina pectoris Medication monitoring encounter Encounter for therapeutic drug monitoring [facility] Diagnosis History of colonic polyps- Primary Personal history of colonic polyps [facility]* Diagnosis Neuropathic pain of right foot- Primary Focal motor seizure (HCC) Localization-related (focal) (partial) epilepsy and epileptic syndromes with simple partial seizures, without mention of intractable epilepsy Other intervertebral disc degeneration, lumbar region [facility]* Diagnosis Family history of colon cancer in mother- Primary History of colonic polyps Personal history of colonic polyps [facility]* Diagnosis Neck pain Cervicalgia [facility]* Diagnosis Glioblastoma (HCC)- Primary Malignant neoplasm of brain, unspecified site [facility]* Diagnosis Brain tumor (HCC)- Primary Neoplasm of unspecified nature of brain [facility]* Diagnosis Meningioma (HCC) Benign neoplasm of cerebral meninges Brain edema (HCC) Cerebral edema Seizures (HCC) Other convulsions 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 [facility] Diagnosis Focal motor seizure (HCC)- Primary Localization-related (focal) (partial) epilepsy and epileptic syndromes with simple partial seizures, without mention of intractable epilepsy Seizure (HCC) Other convulsions Gait difficulty Abnormality of gait 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 Meningioma (HCC) Benign neoplasm of cerebral meninges Recurrent seizures (HCC) Other forms of epilepsy and recurrent seizures without mention of intractable epilepsy Brain edema (HCC) Cerebral edema Pain in right foot Pain in limb Radionecrosis Weakness Other malaise and fatigue Glioblastoma (HCC) Malignant neoplasm of brain, unspecified site Nerve pain Neuralgia, neuritis, and radiculitis, unspecified Seizures (HCC) Other convulsions [facility]* Diagnosis Skin infection- Primary Unspecified local infection of skin and subcutaneous tissue Tick bite, unspecified site, initial encounter [facility]* Diagnosis Acute maxillary sinusitis, recurrence not specified- Primary [facility]* Diagnosis Meningioma (HCC)- Primary Benign neoplasm of cerebral meninges Brain edema (HCC) Cerebral edema Seizure (HCC) Other convulsions Focal motor seizure (HCC) Localization-related (focal) (partial) epilepsy and epileptic syndromes with simple partial seizures, without mention of intractable epilepsy Coronary artery disease involving benton coronary artery of benton heart without angina pectoris Mixed hyperlipidemia Mitral valve prolapse Mitral valve disorders Myocardial ischemia Other specified forms of chronic ischemic heart disease MELL on CPAP Obstructive sleep apnea (adult) (pediatric) CKD (chronic kidney disease) stage 1, GFR 90 ml/min or greater Chronic kidney disease, Stage I Glioblastoma (HCC) Malignant neoplasm of brain, unspecified site URI, acute Acute upper respiratory infections of unspecified site Tick bite, unspecified site, subsequent encounter Screening for prostate cancer Special screening for malignant neoplasm of prostate [facility]* Diagnosis Recurrent seizures (HCC) Other forms of epilepsy and recurrent seizures without mention of intractable epilepsy Meningioma (HCC) Benign neoplasm of cerebral meninges Seizure (HCC) Other convulsions [facility]* Diagnosis Elevated liver enzymes- Primary Other nonspecific abnormal serum enzyme levels [facility]* Diagnosis Lipoma, unspecified site- Primary History of colonic polyps Personal history of colonic polyps [facility]* Diagnosis Meningioma (HCC) Benign neoplasm of cerebral meninges Brain edema (HCC) Cerebral edema Seizure (HCC) Other convulsions [facility]* Diagnosis Meningioma (HCC) Benign neoplasm of cerebral meninges [facility]* Diagnosis Meningioma (HCC)- Primary Benign neoplasm of cerebral meninges [facility]* Diagnosis Meningioma (HCC)- Primary Benign neoplasm of cerebral meninges 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 Weakness Other malaise and fatigue Seizures (HCC) Other convulsions Glioblastoma (HCC) Malignant neoplasm of brain, unspecified site Pain in right foot Pain in limb Focal motor seizure (HCC) Localization-related (focal) (partial) epilepsy and epileptic syndromes with simple partial seizures, without mention of intractable epilepsy Brain edema (HCC) Cerebral edema Seizure (HCC) Other convulsions Gait difficulty Abnormality of gait Radionecrosis Nerve pain Neuralgia, neuritis, and radiculitis, unspecified [facility]* Diagnosis Meningioma (HCC)- Primary Benign neoplasm of cerebral meninges [facility]* Diagnosis MELL on CPAP- Primary Obstructive sleep apnea (adult) (pediatric) [facility]* Diagnosis Meningioma (HCC) Benign neoplasm of cerebral meninges Localization-related (focal) (partial) idiopathic epilepsy and epileptic syndromes with seizures of localized onset, not intractable, without status epilepticus (HCC) Diffuse pain in right lower extremity Personal history of irradiation Personal history of irradiation, presenting hazards to health [facility]* Diagnosis Meningioma (HCC)- Primary Benign neoplasm of cerebral meninges Brain edema (HCC) Cerebral edema 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 Diagnosis Seizures (HCC)- Primary Other convulsions Meningioma (HCC) Benign neoplasm of cerebral meninges [facility] Diagnosis Focal seizures (HCC) Other convulsions Pain in right foot Pain in limb Muscle fasciculation Abnormal involuntary movements History of brain tumor Personal history of other disorders of nervous system and sense organs Family history of amyotrophic lateral sclerosis Family history of other neurological diseases [facility] Diagnosis Aortic stenosis, moderate- Primary Aortic valve disorders Coronary artery disease involving benton coronary artery of benton heart without angina pectoris Postsurgical percutaneous transluminal coronary angioplasty (PTCA) status Postsurgical percutaneous transluminal coronary angioplasty status [facility] Diagnosis Fasciculation- Primary Abnormal involuntary movements 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* Diagnosis Meningioma (HCC)- Primary Benign neoplasm of cerebral meninges documented in this encounter [facility] for referral (narrative)* Outpatient Procedure (Routine) - Pending Review Specialty Diagnoses / Procedures Referred By Virginia monsalve [facility] Diagnoses Recurrent seizures (HCC) Procedures ECG COMPLETE ECG ROUTINE ECG W/LEAST 12 LDS W/I&R Catarino Camacho MD, PhD [address] [facility] [address] [place] [address] [facility] Vascular [address] [address] Referral ID Status Reason Start Date Expiration Date Visits Requested Visits Authorized [id number] Pending Review Auto-Generat ed Referral 09/14/2021 09/14/2022 1 1 [facility] for referral (narrative)* Diagnostic Procedure Only (Routine) - Closed Specialty Diagnoses / Procedures Referred By Contac t Referred To Contact XR IMAGING Diagnoses Foot pain, right Numbness Procedures XR FOOT GENERAL 3V AP/LAT/OBL RIGHT RADEX FOOT COMPLETE MINIMUM 3 VIEWS Augustin Carrillo [address] [place] [address] Xr Imaging Referral ID Status Reason Start Date Expiration Date V isits Requested Visits Authorized [id number] Closed Auto-Generate d Referral 12/20/2021 01/19/2023 1 1 [facility] for referral (narrative)* Outpatient Procedure (Routine) - Pending Review Specialty Diagnoses / Procedures Referred By Contac t Referred To [facility] Diagnoses Foot pain, right Numbness Procedures EMG(NEURO/NI) NERVE CONDUCTION STUDIES 9-10 STUDIES Augustin Carrillo [address] [place] [address] [place] [address] Referral ID Status Reason Start Date Expiration Date Visits Requested Visits Authorized [id number] Pending Review Auto-Generat ed Referral 12/20/2021 12/20/2022 1 1 * Diagnostic Procedure Only (Routine) - Closed Specialty Diagnoses / Procedures Referred By Contac t Referred To Contact XR IMAGING Diagnoses Foot pain, right Numbness Procedures XR FOOT GENERAL 3V AP/LAT/OBL RIGHT RADEX FOOT COMPLETE MINIMUM 3 VIEWS Augustin Carrillo [address] [place] [address] Xr Imaging Referral ID Status Reason Start Date Expiration Date V isits Requested Visits Authorized [id number] Closed Auto-Generate d Referral 12/20/2021 01/19/2023 1 1 [facility] for referral (narrative)* Outpatient Procedure (Routine) - Pending Review Specialty Diagnoses / Procedures Referred By Contac t Referred To [facility] Diagnoses Meningioma (HCC) Seizure (HCC) Recurrent seizures (HCC) Procedures EPIL AMBULATORY EEG EEG COMPLETE STD PHYS/QHP&GT;84 HR W/O Yancy Naqvi MD [address] [address] [place] [address] [place] [address] Referral ID Status Reason Start Date Expiration Date Visits Requested Visits Authorized [id number] Pending Review Auto-Generat ed Referral 02/01/2022 02/01/2023 1 1 * Outpatient Procedure (Routine) - Pending Review Specialty Diagnoses / Procedures Referred By Contac t Referred To Contact [facility] Diagnoses Meningioma (HCC) Seizure (HCC) Recurrent seizures (HCC) Procedures EPIL AMBULATORY EEG EEG COMPLETE STD PHYS/QHP&GT;84 HR W/O Yancy Naqvi MD [address] [address] [place] [address] [place] [address] Referral ID Status Reason Start Date Expiration Date Visits Requested Visits Authorized [id number] Pending Review Auto-Generat ed Referral 02/01/2022 02/01/2023 1 1 * Outpatient Procedure (Routine) - Pending Review Specialty Diagnoses / Procedures Referred By Contac t Referred To [facility] Diagnoses Meningioma (HCC) Seizure (HCC) Recurrent seizures (HCC) Procedures EPIL EEG ROUTINE ELECTROENCEPHALOGRAM REC COMA/SLEEP ONLY Yancy Centeno MD [address] [address] [place] [address] [place] [address] Referral ID Status Reason Start Date Expiration Date Visits Requested Visits Authorized [id number] Pending Review Auto-Generat ed Referral 02/01/2022 02/01/2023 1 1 * Outpatient Procedure (Routine) - Pending Review Specialty Diagnoses / Procedures Referred By Contac t Referred To [facility] Diagnoses Meningioma (HCC) Seizure (HCC) Recurrent seizures (HCC) Procedures EPIL AMBULATORY EEG EEG COMPLETE STD PHYS/QHP&GT;84 HR W/O Yancy Naqvi MD [address] [place] [address] [place] [address] [place] [address] Referral ID Status Reason Start Date Expiration Date Visits Requested Visits Authorized [id number] Pending Review Auto-Generat ed Referral 02/01/2022 02/01/2023 1 1 * Outpatient Procedure (Routine) - Pending Review Specialty Diagnoses / Procedures Referred By Contac t Referred To [facility] Diagnoses Meningioma (HCC) Seizure (HCC) Recurrent seizures (HCC) Procedures EPIL AMBULATORY EEG EEG COMPLETE STD PHYS/QHP&GT;84 HR W/O Yancy Naqvi MD [address] [place] [address] [place] [address] [place] [address] Referral ID Status Reason Start Date Expiration Date Visits Requested Visits Authorized [id number] Pending Review Auto-Generat ed Referral 02/01/2022 02/01/2023 1 1 * Outpatient Procedure (Routine) - Pending Review Specialty Diagnoses / Procedures Referred By Contac t Referred To [facility] Diagnoses Meningioma (HCC) Seizure (HCC) Recurrent seizures (HCC) Procedures EPIL AMBULATORY EEG EEG COMPLETE STD PHYS/QHP&GT;84 HR W/O Yancy Naqvi MD [address] [place] [address] Neurological Start [address] [place] [address] Referral ID Status Reason Start Date Expiration Date Visits Requested Visits Authorized [id number] Pending Review Auto-Generat ed Referral 02/01/2022 02/01/2023 1 1 [facility] for referral (narrative)* Diagnostic Procedure Only (Routine) - Authorized Specialty Diagnoses / Procedures Referred By Contac t Referred To Contact US IMAGING Diagnoses Neck mass Procedures US HEAD/NECK SOFT TISSUE OTHER US SOFT TISSUE HEAD & NECK REAL TIME IMGE Breanne Trejo MD [address] [place] [address] [facility] Referral ID Status Reason Start Date Expiration Date Visits Requested Visits Authorized [id number] Authorized Auto-Generat ed Referral 2 04/30/2023 1 1 * Physical Therapy (Routine) - Pending Review Specialty Diagnoses / Procedures Referred By Contac t Referred To Contact [facility] Diagnoses Neck pain Procedures CONSULT TO PHYSICAL THERAPY PHYSICAL THERAPY EVALUATION HIGH COMPLEX 45 MINS Breanne Whittington MD [address] [place] [address] [facility] [address] [address] Referral ID Status Reason Start Date Expiration Date Visits Requested Visits Authorized [id number] Pending Review Auto-Generat ed Referral 2 03/31/2023 1 1 * Diagnostic Procedure Only (Routine) - Pending Review Specialty Diagnoses / Procedures Referred By Contac t Referred To Contact XR IMAGING Diagnoses Neck pain Procedures XR CERV OTHER 4V AP/LAT/OBL RADEX SPINE CERVICAL 4 OR 5 VIEWS Breanne Whittington MD [address] [place] [address] Xr Imaging Referral ID Status Reason Start Date Expiration Date Visits Requested Visits Authorized [id number] Pending Review Auto-Generat ed Referral 04/30/2023 1 1 [facility] for referral (narrative)* Diagnostic Procedure Only (Routine) - Authorized Specialty Diagnoses / Procedures Referred By Contac t Referred To Contact US IMAGING Diagnoses Neuroma Procedures US FOOT RIGHT US COMPL JOINT R-T W/IMAGE DOCUMENTATION US LMTD JOINT/OTH NONVASC XTR STRUX R-T W/IMG Augustin Carrillo [address] [place] [address] [place] [address] Referral ID Status Reason Start Date Expiration Date Visits Requested Visits Authorized [id number] Authorized Auto-Generat ed Referral 01/02/2023 02/01/2024 1 1 [facility] for referral (narrative)* Diagnostic Procedure Only (Routine) - Closed Specialty Diagnoses / Procedures Referred By Parkerac t Referred To Contact US IMAGING Diagnoses Neuroma Procedures US FOOT RIGHT US COMPL JOINT R-T W/IMAGE DOCUMENTATION US LMTD JOINT/OTH NONVASC XTR STRUX R-T W/IMAugustin Nava [address] [place] [address] [place] [address] Referral ID Status Reason Start Date Expiration Date V isits Requested Visits Authorized [id number] Closed Auto-Generate d Referral 01/02/2023 02/01/2024 1 1 T [facility] for referral (narrative)* Diagnostic Procedure Only (Routine) - Pending Review Specialty Diagnoses / Procedures Referred By Contac t Referred To Contact US IMAGING Diagnoses Bursitis of right foot Numbness Neuroma Procedures US ASP/INJ HAND/FINGER/FOOT/TOE JT BURSA RT ARTHROCNT ASPIR&/INJ SMALL JT/BURSAW/US REC Augustin Sahu [address] [place] [address] [place] [address] Referral ID Status Reason Start Date Expiration Date Visits Requested Visits Authorized [id number] Pending Review Auto-Generat ed Referral 01/30/2023 02/29/2024 1 1 [facility] for referral (narrative)* Diagnostic Procedure Only (Routine) - Pending Review Specialty Diagnoses / Procedures Referred By Virginia monsalve Referred To Contact US IMAGING Diagnoses Bursitis of right foot Procedures US ASP/INJ HAND/FINGER/FOOT/TOE JT BURSA RT ARTHROCNT ASPIR&/INJ SMALL JT/BURSAW/US REC Augustin Sahu[address] [place] [address] [place] [address] Referral ID Status Reason Start Date Expiration Date Visits Requested Visits Authorized [id number] Pending Review Auto-Generat ed Referral 03/02/2024 1 1 * Diagnostic Procedure Only (Routine) - Closed Specialty Diagnoses / Procedures Referred By Virginia monsalve Referred To Contact US IMAGING Diagnoses Bursitis of right foot Numbness Neuroma Procedures US ASP/INJ HAND/FINGER/FOOT/TOE JT BURSA RT ARTHROCNT ASPIR&/INJ SMALL JT/BURSAW/US REC RPAugustin Ramsey[address] [place] [address] [place] [address] Referral ID Status Reason Start Date Expiration Date V isits Requested Visits Authorized [id number] Closed Auto-Generate d Referral 01/30/2023 02/29/2024 1 1 [facility] for referral (narrative)* Diagnostic Procedure Only (Routine) - Closed Specialty Diagnoses / Procedures Referred By [facility] Referred To Contact US IMAGING Diagnoses Neck mass Procedures US HEAD/NECK SOFT TISSUE OTHER US SOFT TISSUE HEAD & NECK REAL TIME IMGE Breanne Trejo MD [address] [place] [address] [place] [address] Referral ID Status Reason Start Date Expiration Date V isits Requested Visits Authorized [id number] Closed Auto-Generate d Referral 03/31/2022 04/30/2023 1 1 [facility] for referral (narrative)* Outpatient Procedure (Routine) - Pending Review Specialty Diagnoses / Procedures Referred By [facility] Diagnoses Irregular heartbeat Procedures ECG COMPLETE ECG ROUTINE ECG W/LEAST 12 LDS W/I[place] [address] [place], [place] [id number] [facility] Start [address] [place] [id number] Referral ID Status Reason Start Date Expiration Date Visits Requested Visits Authorized [id number] Pending Review Auto-Generat ed Referral 3 03/28/2024 1 1 [facility] for referral (narrative)* Diagnostic Procedure Only (Routine) - Closed Specialty Diagnoses / Procedures Referred By [facility] Referred To Contact XR IMAGING Diagnoses Neck pain Procedures XR CERV OTHER 4V AP/LAT/OBL RADEX SPINE CERVICAL 4 OR 5 VIEWS Breanne Whittington MD [address] [place] [address] [place] [address] Referral ID Status Reason Start Date Expiration Date V isits Requested Visits Authorized [id number] Closed Auto-Generate d Referral 03/31/2022 04/30/2023 1 1 [facility] for referral (narrative)* Outpatient Procedure (Routine) - Closed Specialty Diagnoses / Procedures Referred By [place] t Referred To Contact [facility] Diagnoses History of colonic polyps Procedures COLONOSCOPY SCREENING COLONOSCOPY FLX DX W/COLLJ SPEC WHEN PFRMD Orquidea Ley MD [address] [address] [facility]ive Disease Start [address] [place] [address] Referral ID Status Reason Start Date Expiration Date V isits Requested Visits Authorized [id number] Closed Auto-Generate d Referral 12/07/2023 12/06/2024 1 1 [facility] for visit Narrative* Diagnostic Procedure Only (Routine) - Closed Specialty Diagnoses / Procedures Referred By [place] monsalve Referred To Contact XR IMAGING Diagnoses Foot pain, right Numbness Procedures XR FOOT GENERAL 3V AP/LAT/OBL RIGHT RADEX FOOT COMPLETE MINIMUM 3 VIEWS Augustin Carrillo [address] [facility] [place] [address] Xr Imaging Referral ID Status Reason Start Date Expiration Date V isits Requested Visits Authorized [id number] Closed Auto-Generate d Referral 12/20/2021 01/19/2023 1 1 [facility] for visit Narrative* Outpatient Procedure (Routine) - Closed Specialty Diagnoses / Procedures Referred By [place] monsalve Referred To Contact [facility] Diagnoses Foot pain, right Numbness Procedures EMG(NEURO/NI) NERVE CONDUCTION STUDIES 9-10 STUDIES Augustin Carrillo [address] [facility] [place] [address] [address]rological Start [address] [place] [address] Referral ID Status Reason Start Date Expiration Date V isits Requested Visits Authorized [id number] Closed Auto-Generate d Referral 12/29/2021 05/13/2022 1 1 [facility] for visit Narrative* Diagnostic Procedure Only (Routine) - Closed Specialty Diagnoses / Procedures Referred By [place] monsalve Referred To Contact US IMAGING Diagnoses Neuroma Procedures US FOOT RIGHT US COMPL JOINT R-T W/IMAGE DOCUMENTATION US LMTD JOINT/OTH NONVASC XTR STRUX R-T W/IMG Augustin Carrillo [address] [place] [address] [place] [address] Referral ID Status Reason Start Date Expiration Date V isits Requested Visits Authorized [id number] Closed Auto-Generate d Referral 01/02/2023 02/01/2024 1 1 [facility] for visit Narrative* Diagnostic Procedure Only (Routine) - Closed Specialty Diagnoses / Procedures Referred By [place] monsalve Referred To Contact US IMAGING Diagnoses Bursitis of right foot Numbness Neuroma Procedures US ASP/INJ HAND/FINGER/FOOT/TOE JT BURSA RT ARTHROCNT ASPIR&/INJ SMALL JT/BURSAW/US REC RPRT Augustin Carrillo [address] [place] [address] Us Imaging [facility] Referral ID Status Reason Start Date Expiration Date V isits Requested Visits Authorized [id number] Closed Auto-Generate d Referral 01/30/2023 02/29/2024 1 1 [facility] for visit Narrative* Diagnostic Procedure Only (Routine) - Closed Specialty Diagnoses / Procedures Referred By [place] t Referred To Contact XR IMAGING Diagnoses Neck pain Procedures XR CERV OTHER 4V AP/LAT/OBL RADEX SPINE CERVICAL 4 OR 5 VIEWS Breanne Whittington MD [address] [place] [address] Xr Imaging [facility] Referral ID Status Reason Start Date Expiration Date V isits Requested Visits Authorized [id number] Closed Auto-Generate d Referral 03/31/2022 04/30/2023 1 1 [facility] for visit Narrative* Outpatient Procedure (Routine) - Closed Specialty Diagnoses / Procedures Referred By Contac t Referred To Contact [facility] Diagnoses History of colonic polyps Procedures COLONOSCOPY SCREENING COLONOSCOPY FLX DX W/COLLJ SPEC WHEN Orquidea Rasheed MD [address] [address] [facility]ive Disease Start [address] [place] [address] Referral ID Status Reason Start Date Expiration Date V isits Requested Visits Authorized [id number] Closed Auto-Generate d Referral 12/07/2023 12/06/2024 [address] [facility] MRI/CT (Routine) - Closed Specialty Diagnoses / Procedures Referred By [place] t Referred To Contact MR IMAGING Diagnoses Meningioma (HCC) Procedures MRI BRAIN WO/W IVCON MRI BRAIN BRAIN STEM W/O W/CONTRAST MATERIAL Yancy Centeno MD [address] [place] [address] Phone: tel: fax: [place] [address] Referral ID Status Reason Start Date Expiration Date V isits Requested Visits Authorized [id number] Closed Auto-Generate d Referral 09/17/2023 10/16/2024 [address] [facility] Summary Purpose Family History No Family History Records Found Relationship Condition Age at Onset Recorded Date/T rekha mother Macular degeneration Unknown brother Myocardial infarction Unknown Coronary artery disease Unknown Advance Directives No Advanced Directives Records Found Advance Directive Response Recorded Date/ Time Living Will Yes September 27, 2020 5 :25pm Power of Soda Fountain Operator Yes September 27, 2020 5:25pm Documents on File Type Date Recorded Patient Grinding Operator Expl anation Advance Directive(s) 01/08/2021 7:33 PM Advance Directive(s) 08/04/2020 5:36 PM Advance Directive(s) 08/04/2020 5:40 PM Advance Directive(s) 08/04/2020 5:43 PM Advance Directive(s) 08/04/2020 5:46 PM Advance Directive(s) 08/04/2020 5:48 PM Advance Directive(s) 08/04/2020 5:50 PM Documents on File Type Date Recorded Patient Grinding Operator Expl anation Advance Directive(s) 01/08/2021 7:33 PM Advance Directive(s) 08/04/2020 5:36 PM Advance Directive(s) 08/04/2020 5:40 PM Advance Directive(s) 08/04/2020 5:43 PM Advance Directive(s) 08/04/2020 5:46 PM Advance Directive(s) 08/04/2020 5:48 PM Advance Directive(s) 08/04/2020 5:50 PM Advance Directive Response Recorded Date/ Time Name of Medical Power of Soda Fountain Operator DAVE SANTOS ELER January 12, 2023 8:17am Living Will Yes January 12 8:17am Power of Soda Fountain Operator Yes January 12, 2023 8:17am Advance Directive Response Recorded Date/ Time Name of Medical Power of Soda Fountain Operator DAVE SANTOS ELER January 12, 2023 7:17am Living Will Yes January 12 7:17am Power of Soda Fountain Operator Yes January 12, 2023 7:17am Chief Complaint and Reason for Visit Chief Complaint GC 6 m fu MENINGIOMA. RX HERE Reason for Visit Anteroseptal myocard ial infarction Atherosclerotic heart disease of benton coronary artery without angina pectoris Hyperlipemia Nonrheumatic aortic (valve) stenosis Presence of stent in coronary artery Ischemic cardiomyopathy Chief Complaint 6 M FU PRESENCE OF CORONARY ANGIOPLASTY PRESENCE OF CORONARY ANGIOPLASTY Reason for Visit Atherosclerotic hear t disease of benton coronary artery without angina pectoris Hyperlipemia Nonrheumatic aortic (valve) stenosis Presence of stent in coronary artery Ischemic cardiomyopathy Chief Complaint 1 Y FU/ PRV PFM S/R SCREENING SCOPE Reason for Visit Atherosclerotic hear t disease of benton coronary artery without angina pectoris Hyperlipemia Nonrheumatic aortic (valve) stenosis Ischemic cardiomyopathy Lipoma Personal history of colonic polyps Chief Complaint S/R SCREENING SCOPE HISTORY OF MILD Amb Documentation Reason for Visit Lipoma Personal history of colonic polyps Reason for Referral Specialty Diagnoses / Procedures Referred By [place] monsalve Referred To Contact CT IMAGING Diagnoses Meningioma (HCC) Brain edema (HCC) Seizure (HCC) Procedures CT BRAIN WO IVCON CT HEAD/BRAIN W/O CONTRAST MATERIAL Yancy Centeno MD [address] [address] [address] Imaging Referral ID Status Reason Start Date Expiration Date V isits Requested Visits Authorized [id number] Closed Auto-Generate d Referral 08/23/2021 09/22/2022 1 1 Specialty Diagnoses / Procedures Referred By [place] monsalve Referred To Contact Psychology Diagnoses Impotence of organic origin Procedures CONSULT TO PSYCHOLOGY OFFICE/OUTPATIENT [facility] HIGH MDM 60-74 MINUTES Dimitry Pedraza MD [address] [place] [address] Viola Mast PSYD [address] [facility] [place] [address] Referral ID Status Reason Start Date Expiration Date Visits Requested Visits Authorized [id number] Pending Review PCP Requested Referral 11/04/2021 11/04/2022 1 1 Specialty Diagnoses / Procedures Referred By Contac t Referred To Contact [facility] Diagnoses Meningioma (HCC) Seizure (HCC) Procedures CONSULT TO FOOD SAFETY SCIENTIST OCCUPATIONAL THERAPY [facility] COMPLEX 60 MINS Yancy Centeno MD [address] [place] [address] [facility] Start [address] [place] [address] Referral ID Status Reason Start Date Expiration Date Visits Requested Visits Authorized [id number] Pending Review Auto-Generat ed Referral 11/21/2021 11/21/2022 1 1 Specialty Diagnoses / Procedures Referred By Contac t Referred To Contact Podiatry Diagnoses Foot pain, right Procedures CONSULT TO PODIATRY OFFICE/OUTPATIENT [facility] 60-74 MINUTES Breanne Whittington MD [address] [place] [address] Referral ID Status Reason Start Date Expiration Date Visits Requested Visits Authorized [id number] Authorized PCP Requested Referral 11/29/2021 11/29/2022 1 1 Specialty Diagnoses / Procedures Referred By Contac t Referred To Contact MR IMAGING Diagnoses Chronic pain of right ankle Procedures MRI ANKLE WO/W IVCON RT MRI ANY JT LOWER EXTREM W/O & W/CONTRAST Augustin Maddox[address] [place] [address] Mr Imaging Referral ID Status Reason Start Date Expiration Date Visits Requested Visits Authorized [id number] Pending Review Auto-Generat ed Referral 01/17/2022 02/16/2023 1 1 Referral ID Status Reason Start Date Expiration Date V isits Requested Visits Authorized [id number] Closed Auto-Generate d Referral 01/17/2022 02/10/2022 1 1 Specialty Diagnoses / Procedures Referred By Contac t Referred To Contact MR IMAGING Diagnoses Benign neoplasm of meninges (HCC) Meningioma (HCC) Procedures MRI BRAIN WO/W IVCON MRI BRAIN BRAIN STEM W/O W/CONTRAST MATERIAL Trev Sutton MD [address] [place] [address] Mr Imaging Referral ID Status Reason Start Date Expiration Date V isits Requested Visits Authorized [id number] Closed Auto-Generate d Referral 07/25/2021 01/26/2022 1 1 Specialty Diagnoses / Procedures Referred By Contac t Referred To Contact [facility] Diagnoses Seizure (HCC) Procedures CONSULT TO FOOD SAFETY SCIENTIST OCCUPATIONAL THERAPY [place]IGH COMPLEX 60 MINS Yancy Centeno MD [address] [place] [address] [facility] [place] [address] [place] [address] Referral ID Status Reason Start Date Expiration Date Visits Requested Visits Authorized [id number] Pending Review Auto-Generat ed Referral 02/02/2022 02/02/2023 1 1 Specialty Diagnoses / Procedures Referred By Contac t Referred To Contact MR IMAGING Diagnoses Meningioma (HCC) Procedures MRI BRAIN WO/W IVCON MRI BRAIN BRAIN STEM W/O W/CONTRAST MATERIAL Yancy Centeno MD [address] [place] [address] Mr Imaging Referral ID Status Reason Start Date Expiration Date Visits Requested Visits Authorized [id number] Pending Review Auto-Generat ed Referral 02/09/2022 03/11/2023 1 1 Specialty Diagnoses / Procedures Referred By Contac t Referred To Contact MR IMAGING Diagnoses 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) Procedures MRI BRAIN WO/W IVCON MRI BRAIN BRAIN STEM W/O W/CONTRAST MATERIAL Yancy Centeno MD [address] [address] Mr Imaging Referral ID Status Reason Start Date Expiration Date Visits Requested Visits Authorized [id number] Pending Review Auto-Generat ed Referral 05/24/2023 1 1 Referral ID Status Reason Start Date Expiration Date Visits Requested Visits Authorized [id number] Pending Review Auto-Generat ed Referral 08/03/2022 09/02/2023 1 1 Specialty Diagnoses / Procedures Referred By Contac t Referred To Contact Cardiology Diagnoses Coronary artery disease involving benton coronary artery of benton heart without angina pectoris Procedures CONSULT TO CARDIOLOGY OFFICE/OUTPATIENT NEW HIGH MDM 60-74 MINUTES Breanne Whittington MD [address] [place] [address] Referral ID Status Reason Start Date Expiration Date Visits Requested Visits Authorized [id number] Authorized PCP Requested Referral 08/30/2022 08/30/2023 1 1 Specialty Diagnoses / Procedures Referred By Contac t Referred To Contact Oncology Diagnoses Meningioma Galdamez, Evelia S, 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 [place] [address] Referral ID Status Reason Start Date Expiration Date V isits Requested Visits Authorized [id number] New Request 02/01/2023 02/26/2024 1 1 Specialty Diagnoses / Procedures Referred By Contac t Referred To Contact MR IMAGING Diagnoses Meningioma (HCC) Procedures MRI BRAIN WO/W IVCON MRI BRAIN BRAIN STEM W/O W/CONTRAST MATERIAL Yancy Centeno MD [address] [place] [address] Mr Imaging [place] [address] Referral ID Status Reason Start Date Expiration Date V isits Requested Visits Authorized [id number] Closed Auto-Generate d Referral 01/16/2023 05/13/2023 1 1 Specialty Diagnoses / Procedures Referred By Contac t Referred To Contact MR IMAGING Diagnoses 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) Procedures MRI BRAIN WO/W IVCON MRI BRAIN BRAIN STEM W/O W/CONTRAST MATERIAL Yancy Centeno MD [address] [place] [address] Mr Imaging [place] [address] Referral ID Status Reason Start Date Expiration Date V isits Requested Visits Authorized [id number] Closed Auto-Generate d Referral 07/31/2022 07/31/2022 1 1 Referral ID Status Reason Start Date Expiration Date V isits Requested Visits Authorized [id number] Closed Auto-Generate d Referral 02/09/2022 04/21/2022 1 1 Specialty Diagnoses / Procedures Referred By Contac t Referred To Contact Diagnoses MELL on CPAP Procedures PROVIDER ORDERED FOLLOW UP OFFICE/OUTPATIENT NEW HIGH MDM 60-74 MINUTES Miguelangel Spence APRN.[employer]ARMWORK[employer] [address] [place] [address] Referral ID Status Reason Start Date Expiration Date Visits Requested Visits Authorized [id number] Authorized PCP Requested Referral 04/18/2023 03/18/2024 1 1 Referral ID Status Reason Start Date Expiration Date Visits Requested Visits Authorized [id number] Authorized PCP Requested Referral 10/25/2023 04/24/2024 1 1 Specialty Diagnoses / Procedures Referred By Contac t Referred To Contact [facility] Diagnoses Bursitis of right foot Foot pain, right Procedures CONSULT TO PHYSICAL THERAPY PHYSICAL THERAPY EVALUATION HIGH COMPLEX 45 MINS Augustin Carrillo [address] [place] [address] [facility] Start [address] [place] [address] Referral ID Status Reason Start Date Expiration Date Visits Requested Visits Authorized [id number] Pending Review Auto-Generat ed Referral 08/01/2023 07/31/2024 1 1 Specialty Diagnoses / Procedures Referred By Contac t Referred To Contact MR IMAGING Diagnoses Meningioma (HCC) Glioblastoma (HCC) Radionecrosis Procedures MRI BRAIN WO/W IVCON MRI BRAIN BRAIN STEM W/O W/CONTRAST MATERIAL Yancy Centeno MD [address] [place] [address] Mr Imaging [facility] Referral ID Status Reason Start Date Expiration Date V isits Requested Visits Authorized [id number] Closed Auto-Generate d Referral 02/20/2023 03/21/2024 1 1 Referral ID Status Reason Start Date Expiration Date Visits Requested Visits Authorized [id number] Pending Review Auto-Generat ed Referral 09/17/2023 10/16/2024 1 1 Specialty Diagnoses / Procedures Referred By Contac t Referred To Contact Diagnoses Meningioma (HCC) Brain edema (HCC) Seizure (HCC) Procedures CONSULT TO WELLNESS PHYSICIAN OFFICE/OUTPATIENT [facility] MDM 60 MINUTES Breanne Whittington MD [address] [place] [address] Referral ID Status Reason Start Date Expiration Date Visits Requested Visits Authorized [id number] Authorized PCP Requested Referral 10/31/2023 10/30/2024 1 1 Specialty Diagnoses / Procedures Referred By Contac t Referred To Contact General Surgery / GENERAL SURGERY Diagnoses History of colonic polyps Procedures CONSULT TO GENERAL SURGERY OFFICE/OUTPATIENT [facility] 60 MINUTES Fouzia Amado APRN.CNS [address] [place] [address] [facility] [address] [place] [address] Referral ID Status Reason Start Date Expiration Date Visits Requested Visits Authorized [id number] Authorized PCP Requested Referral Financial Clearance Required - Self Pay 11/05/2023 11/04/2024 1 1 Specialty Diagnoses / Procedures Referred By Contac t Referred To Contact Diagnoses Neuropathic pain of right foot Other intervertebral disc degeneration, lumbar region Procedures CONSULT FOR ACUPUNCTURE ACUPUNCTURE 1/> NDLS W/ELEC STIMJ 1ST 15 MIN ACUP 1/> NDLS W/ELEC STIMJ EA 15 MIN W/RE-INSJ Danielle Khan PA-C [address] [place] [address] Referral ID Status Reason Start Date Expiration Date Visits Requested Visits Authorized [id number] Pending Review PCP Requested Referral 12/06/2023 03/05/2024 1 1 Specialty Diagnoses / Procedures Referred By Contac t Referred To Contact Diagnoses History of colonic polyps Family history of colon cancer in mother Procedures CONSULT TO MEDICAL GENETICS - CANCER MEDICAL GENETICS COUNSELING EACH 30 MINUTES Orquidea Ley MD [address] [facility] [place] [address] [facility] Start [address] [place] [address] Referral ID Status Reason Start Date Expiration Date Visits Requested Visits Authorized [id number] Pending Review PCP Requested Referral Auto-Generate d Referral 12/07/2023 12/06/2024 1 1 Specialty Diagnoses / Procedures Referred By [place] monsalve Referred To Contact [facility] Diagnoses History of colonic polyps Procedures COLONOSCOPY SCREENING COLONOSCOPY FLX DX W/COLLJ SPEC WHEN Orquidea Rasheed MD [address] [address] Digestive Disease Start [address] [place] [address] Referral ID Status Reason Start Date Expiration Date Visits Requested Visits Authorized [id number] Authorized Auto-Generat ed Referral 12/07/2023 12/06/2024 1 1 Medications Administered Section Inactive Administered Medications - up to 3 most recent administrations Medication Order MAR Action Action Date Dose Rate Site bevacizumab-bvzr 600 mg in NaCl 0.9% 134 mL (ZIRABEV) 600 mg (rounded from 629.25 mg = 7.5 mg/kg/dose 83.9 kg Treatment plan Recorded weight), INTRAVENOUS, Administer over 30 Minutes, ONCE, 1 dose, On Sun02/27/22 at 1630, Approx Total Volume - Do Not Shake Refrigerate - EXP: (8 HR) New Bag/Syringe/Bottle 02/27/2022 5:09 PM EDT 600 mg Inactive Administered Medications - up to 3 most recent administrations Medication Order MAR Action Action Date Dose Rate Site bevacizumab-bvzr 600 mg in NaCl 0.9% 134 mL (ZIRABEV) 600 mg (rounded from 629.25 mg = 7.5 mg/kg/dose 83.9 kg Treatment plan Recorded weight), INTRAVENOUS, Administer over 30 Minutes, ONCE, 1 dose, On Sun03/20/22 at 1430, - Do Not Shake Refrigerate - EXP: (8 HR) New Bag/Syringe/Bottle 03/20/2022 3:35 PM EST 600 mg Inactive Administered Medications - up to 3 most recent administrations Medication Order MAR Action Action Date Dose Rate Site bevacizumab-bvzr 600 mg in NaCl 0.9% 134 mL (ZIRABEV) 600 mg (rounded from 629.25 mg = 7.5 mg/kg/dose 83.9 kg Treatment plan Recorded weight), INTRAVENOUS, Administer over 30 Minutes, ONCE, 1 dose, On 04/10/22 at 1530, Approx Total Volume Do Not Shake Refrigerate - EXP: (8 HR) New Bag/Syringe/Bottle 04/10/2022 4:16 PM EST 600 mg Additional Source Comments (unrecognized sect ion and content) No Status Records FoundNo Status Records FoundNo Status Records FoundNo Status Records FoundNo Status Records FoundNo Status Records FoundNo Status Records FoundNo Status Records FoundNo Status Records Found INFORMATION SOURCE (unrecogn ized section and content) DATE CREATED AUTHOR 06/15/2020 [facility] DATE CREATED AUTHOR AUTHOR'S ORGANIZ ATION 01/09/2021 [facility] DATE CREATED AUTHOR AUTHOR'S ORGANIZ ATION 01/13/2021 [facility] DATE CREATED AUTHOR AUTHOR'S ORGANIZ ATION 03/03/2021 [facility] DATE CREATED AUTHOR AUTHOR'S ORGANIZ ATION 06/09/2022 [facility] DATE CREATED AUTHOR AUTHOR'S ORGANIZ ATION 03/30/2023 [facility] DATE CREATED AUTHOR AUTHOR'S ORGANIZ ATION 06/23/2024 [facility] DATE CREATED AUTHOR AUTHOR'S ORGANIZ ATION 01/04/[address] [facility] DATE CREATED AUTHOR AUTHOR'S ORGANIZ ATION 03/12/2025 [facility] Goals (unrecognized section and content) Goals may be documented in a n alternate sectionGoals may be documented in an alternate sectionGoals may be documented in an alternate sectionGoals may be documented in an alternate section Source Comments (unrecognize d section and content) In the event this informatio n is protected by the Federal Confidentiality of Alcohol and Drug Abuse Patient Records regulations: The Federal rules restrict any use of the information to criminally investigate or prosecute any alcohol or drug abuse patient.[facility] the event this information is protected by the Federal Confidentiality of Alcohol and Drug Abuse Patient Records regulations: The Federal rules restrict any use of the information to criminally investigate or prosecute any alcohol or drug abuse patient.[facility] Hospital[facility] the event this information is protected by the Federal Confidentiality of Alcohol and Drug Abuse Patient Records regulations: The Federal rules restrict any use of the information to criminally investigate or prosecute any alcohol or drug abuse patient.[facility] Hospital[facility] the event this information is protected by the Federal Confidentiality of Alcohol and Drug Abuse Patient Records regulations: The Federal rules restrict any use of the information to criminally investigate or prosecute any alcohol or drug abuse patient.[facility] Hospital[facility] the event this information is protected by the Federal Confidentiality of Alcohol and Drug Abuse Patient Records regulations: The Federal rules restrict any use of the information to criminally investigate or prosecute any alcohol or drug abuse patient.[facility] HospitalIn the event this information is protected by the Federal Confidentiality of Alcohol and Drug Abuse Patient Records regulations: The Federal rules restrict any use of the information to criminally investigate or prosecute any alcohol or drug abuse patient.[facility] Hospital[facility] the event this information is protected by the Federal Confidentiality of Alcohol and Drug Abuse Patient Records regulations: The Federal rules restrict any use of the information to criminally investigate or prosecute any alcohol or drug abuse patient.[facility] HospitalIn the event this information is protected by the Federal Confidentiality of Alcohol and Drug Abuse Patient Records regulations: The Federal rules restrict any use of the information to criminally investigate or prosecute any alcohol or drug abuse patient.[facility] HospitalIn the event this information is protected by the Federal Confidentiality of Alcohol and Drug Abuse Patient Records regulations: The Federal rules restrict any use of the information to criminally investigate or prosecute any alcohol or drug abuse patient.[facility] HospitalIn the event this information is protected by the Federal Confidentiality of Alcohol and Drug Abuse Patient Records regulations: The Federal rules restrict any use of the information to criminally investigate or prosecute any alcohol or drug abuse patient.[facility] HospitalIn the event this information is protected by the Federal Confidentiality of Alcohol and Drug Abuse Patient Records regulations: The Federal rules restrict any use of the information to criminally investigate or prosecute any alcohol or drug abuse patient.[facility] HospitalIn the event this information is protected by the Federal Confidentiality of Alcohol and Drug Abuse Patient Records regulations: The Federal rules restrict any use of the information to criminally investigate or prosecute any alcohol or drug abuse patient.[facility] HospitalIn the event this information is protected by the Federal Confidentiality of Alcohol and Drug Abuse Patient Records regulations: The Federal rules restrict any use of the information to criminally investigate or prosecute any alcohol or drug abuse patient.[facility] HospitalIn the event this information is protected by the Federal Confidentiality of Alcohol and Drug Abuse Patient Records regulations: The Federal rules restrict any use of the information to criminally investigate or prosecute any alcohol or drug abuse patient.[facility] HospitalIn the event this information is protected by the Federal Confidentiality of Alcohol and Drug Abuse Patient Records regulations: The Federal rules restrict any use of the information to criminally investigate or prosecute any alcohol or drug abuse patient.[facility] HospitalIn the event this information is protected by the Federal Confidentiality of Alcohol and Drug Abuse Patient Records regulations: The Federal rules restrict any use of the information to criminally investigate or prosecute any alcohol or drug abuse patient.[facility] HospitalIn the event this information is protected by the Federal Confidentiality of Alcohol and Drug Abuse Patient Records regulations: The Federal rules restrict any use of the information to criminally investigate or prosecute any alcohol or drug abuse patient.[facility] the event this information is protected by the Federal Confidentiality of Alcohol and Drug Abuse Patient Records regulations: The Federal rules restrict any use of the information to criminally investigate or prosecute any alcohol or drug abuse patient.[facility] HospitalIn the event this information is protected by the Federal Confidentiality of Alcohol and Drug Abuse Patient Records regulations: The Federal rules restrict any use of the information to criminally investigate or prosecute any alcohol or drug abuse patient.[facility] HospitalIn the event this information is protected by the Federal Confidentiality of Alcohol and Drug Abuse Patient Records regulations: The Federal rules restrict any use of the information to criminally investigate or prosecute any alcohol or drug abuse patient.[facility]In the event this information is protected by the Federal Confidentiality of Alcohol and Drug Abuse Patient Records regulations: The Federal rules restrict any use of the information to criminally investigate or prosecute any alcohol or drug abuse patient.[facility] HospitalIn the event this information is protected by the Federal Confidentiality of Alcohol and Drug Abuse Patient Records regulations: The Federal rules restrict any use of the information to criminally investigate or prosecute any alcohol or drug abuse patient.[facility] HospitalIn the event this information is protected by the Federal Confidentiality of Alcohol and Drug Abuse Patient Records regulations: The Federal rules restrict any use of the information to criminally investigate or prosecute any alcohol or drug abuse patient.[facility] HospitalIn the event this information is protected by the Federal Confidentiality of Alcohol and Drug Abuse Patient Records regulations: The Federal rules restrict any use of the information to criminally investigate or prosecute any alcohol or drug abuse patient.[facility] HospitalIn the event this information is protected by the Federal Confidentiality of Alcohol and Drug Abuse Patient Records regulations: The Federal rules restrict any use of the information to criminally investigate or prosecute any alcohol or drug abuse patient.[facility] HospitalIn the event this information is protected by the Federal Confidentiality of Alcohol and Drug Abuse Patient Records regulations: The Federal rules restrict any use of the information to criminally investigate or prosecute any alcohol or drug abuse patient.[facility] HospitalIn the event this information is protected by the Federal Confidentiality of Alcohol and Drug Abuse Patient Records regulations: The Federal rules restrict any use of the information to criminally investigate or prosecute any alcohol or drug abuse patient.[facility] HospitalIn the event this information is protected by the Federal Confidentiality of Alcohol and Drug Abuse Patient Records regulations: The Federal rules restrict any use of the information to criminally investigate or prosecute any alcohol or drug abuse patient.[facility] HospitalIn the event this information is protected by the Federal Confidentiality of Alcohol and Drug Abuse Patient Records regulations: The Federal rules restrict any use of the information to criminally investigate or prosecute any alcohol or drug abuse patient.[facility] HospitalIn the event this information is protected by the Federal Confidentiality of Alcohol and Drug Abuse Patient Records regulations: The Federal rules restrict any use of the information to criminally investigate or prosecute any alcohol or drug abuse patient.[facility] HospitalIn the event this information is protected by the Federal Confidentiality of Alcohol and Drug Abuse Patient Records regulations: The Federal rules restrict any use of the information to criminally investigate or prosecute any alcohol or drug abuse patient.[facility] HospitalIn the event this information is protected by the Federal Confidentiality of Alcohol and Drug Abuse Patient Records regulations: The Federal rules restrict any use of the information to criminally investigate or prosecute any alcohol or drug abuse patient.[facility] HospitalIn the event this information is protected by the Federal Confidentiality of Alcohol and Drug Abuse Patient Records regulations: The Federal rules restrict any use of the information to criminally investigate or prosecute any alcohol or drug abuse patient.[facility] HospitalIn the event this information is protected by the Federal Confidentiality of Alcohol and Drug Abuse Patient Records regulations: The Federal rules restrict any use of the information to criminally investigate or prosecute any alcohol or drug abuse patient.[facility] HospitalIn the event this information is protected by the Federal Confidentiality of Alcohol and Drug Abuse Patient Records regulations: The Federal rules restrict any use of the information to criminally investigate or prosecute any alcohol or drug abuse patient.[facility] HospitalIn the event this information is protected by the Federal Confidentiality of Alcohol and Drug Abuse Patient Records regulations: The Federal rules restrict any use of the information to criminally investigate or prosecute any alcohol or drug abuse patient.[facility] HospitalIn the event this information is protected by the Federal Confidentiality of Alcohol and Drug Abuse Patient Records regulations: The Federal rules restrict any use of the information to criminally investigate or prosecute any alcohol or drug abuse patient.[facility] HospitalIn the event this information is protected by the Federal Confidentiality of Alcohol and Drug Abuse Patient Records regulations: The Federal rules restrict any use of the information to criminally investigate or prosecute any alcohol or drug abuse patient.[facility] HospitalIn the event this information is protected by the Federal Confidentiality of Alcohol and Drug Abuse Patient Records regulations: The Federal rules restrict any use of the information to criminally investigate or prosecute any alcohol or drug abuse patient.[facility] HospitalIn the event this information is protected by the Federal Confidentiality of Alcohol and Drug Abuse Patient Records regulations: The Federal rules restrict any use of the information to criminally investigate or prosecute any alcohol or drug abuse patient.[facility] HospitalIn the event this information is protected by the Federal Confidentiality of Alcohol and Drug Abuse Patient Records regulations: The Federal rules restrict any use of the information to criminally investigate or prosecute any alcohol or drug abuse patient.[facility] HospitalIn the event this information is protected by the Federal Confidentiality of Alcohol and Drug Abuse Patient Records regulations: The Federal rules restrict any use of the information to criminally investigate or prosecute any alcohol or drug abuse patient.[facility] HospitalIn the event this information is protected by the Federal Confidentiality of Alcohol and Drug Abuse Patient Records regulations: The Federal rules restrict any use of the information to criminally investigate or prosecute any alcohol or drug abuse patient.[facility] HospitalIn the event this information is protected by the Federal Confidentiality of Alcohol and Drug Abuse Patient Records regulations: The Federal rules restrict any use of the information to criminally investigate or prosecute any alcohol or drug abuse patient.[facility] HospitalIn the event this information is protected by the Federal Confidentiality of Alcohol and Drug Abuse Patient Records regulations: The Federal rules restrict any use of the information to criminally investigate or prosecute any alcohol or drug abuse patient.[facility] HospitalIn the event this information is protected by the Federal Confidentiality of Alcohol and Drug Abuse Patient Records regulations: The Federal rules restrict any use of the information to criminally investigate or prosecute any alcohol or drug abuse patient.[facility] HospitalIn the event this information is protected by the Federal Confidentiality of Alcohol and Drug Abuse Patient Records regulations: The Federal rules restrict any use of the information to criminally investigate or prosecute any alcohol or drug abuse patient.[facility] HospitalIn the event this information is protected by the Federal Confidentiality of Alcohol and Drug Abuse Patient Records regulations: The Federal rules restrict any use of the information to criminally investigate or prosecute any alcohol or drug abuse patient.[facility] HospitalIn the event this information is protected by the Federal Confidentiality of Alcohol and Drug Abuse Patient Records regulations: The Federal rules restrict any use of the information to criminally investigate or prosecute any alcohol or drug abuse patient.[facility] HospitalIn the event this information is protected by the Federal Confidentiality of Alcohol and Drug Abuse Patient Records regulations: The Federal rules restrict any use of the information to criminally investigate or prosecute any alcohol or drug abuse patient.[facility] HospitalIn the event this information is protected by the Federal Confidentiality of Alcohol and Drug Abuse Patient Records regulations: The Federal rules restrict any use of the information to criminally investigate or prosecute any alcohol or drug abuse patient.[facility] HospitalIn the event this information is protected by the Federal Confidentiality of Alcohol and Drug Abuse Patient Records regulations: The Federal rules restrict any use of the information to criminally investigate or prosecute any alcohol or drug abuse patient.[facility] HospitalIn the event this information is protected by the Federal Confidentiality of Alcohol and Drug Abuse Patient Records regulations: The Federal rules restrict any use of the information to criminally investigate or prosecute any alcohol or drug abuse patient.[facility] HospitalIn the event this information is protected by the Federal Confidentiality of Alcohol and Drug Abuse Patient Records regulations: The Federal rules restrict any use of the information to criminally investigate or prosecute any alcohol or drug abuse patient.[facility] HospitalIn the event this information is protected by the Federal Confidentiality of Alcohol and Drug Abuse Patient Records regulations: The Federal rules restrict any use of the information to criminally investigate or prosecute any alcohol or drug abuse patient.[facility] HospitalIn the event this information is protected by the Federal Confidentiality of Alcohol and Drug Abuse Patient Records regulations: The Federal rules restrict any use of the information to criminally investigate or prosecute any alcohol or drug abuse patient.[facility] HospitalIn the event this information is protected by the Federal Confidentiality of Alcohol and Drug Abuse Patient Records regulations: The Federal rules restrict any use of the information to criminally investigate or prosecute any alcohol or drug abuse patient.[facility] HospitalIn the event this information is protected by the Federal Confidentiality of Alcohol and Drug Abuse Patient Records regulations: The Federal rules restrict any use of the information to criminally investigate or prosecute any alcohol or drug abuse patient.[facility] HospitalIn the event this information is protected by the Federal Confidentiality of Alcohol and Drug Abuse Patient Records regulations: The Federal rules restrict any use of the information to criminally investigate or prosecute any alcohol or drug abuse patient.[facility] HospitalIn the event this information is protected by the Federal Confidentiality of Alcohol and Drug Abuse Patient Records regulations: The Federal rules restrict any use of the information to criminally investigate or prosecute any alcohol or drug abuse patient.[facility] HospitalIn the event this information is protected by the Federal Confidentiality of Alcohol and Drug Abuse Patient Records regulations: The Federal rules restrict any use of the information to criminally investigate or prosecute any alcohol or drug abuse patient.[facility] HospitalIn the event this information is protected by the Federal Confidentiality of Alcohol and Drug Abuse Patient Records regulations: The Federal rules restrict any use of the information to criminally investigate or prosecute any alcohol or drug abuse patient.[facility] HospitalIn the event this information is protected by the Federal Confidentiality of Alcohol and Drug Abuse Patient Records regulations: The Federal rules restrict any use of the information to criminally investigate or prosecute any alcohol or drug abuse patient.[facility] HospitalIn the event this information is protected by the Federal Confidentiality of Alcohol and Drug Abuse Patient Records regulations: The Federal rules restrict any use of the information to criminally investigate or prosecute any alcohol or drug abuse patient.[facility] HospitalIn the event this information is protected by the Federal Confidentiality of Alcohol and Drug Abuse Patient Records regulations: The Federal rules restrict any use of the information to criminally investigate or prosecute any alcohol or drug abuse patient.[facility] HospitalIn the event this information is protected by the Federal Confidentiality of Alcohol and Drug Abuse Patient Records regulations: The Federal rules restrict any use of the information to criminally investigate or prosecute any alcohol or drug abuse patient.[facility] HospitalIn the event this information is protected by the Federal Confidentiality of Alcohol and Drug Abuse Patient Records regulations: The Federal rules restrict any use of the information to criminally investigate or prosecute any alcohol or drug abuse patient.[facility] the event this information is protected by the Federal Confidentiality of Alcohol and Drug Abuse Patient Records regulations: The Federal rules restrict any use of the information to criminally investigate or prosecute any alcohol or drug abuse patient.[facility] HospitalIn the event this information is protected by the Federal Confidentiality of Alcohol and Drug Abuse Patient Records regulations: The Federal rules restrict any use of the information to criminally investigate or prosecute any alcohol or drug abuse patient.[facility] HospitalIn the event this information is protected by the Federal Confidentiality of Alcohol and Drug Abuse Patient Records regulations: The Federal rules restrict any use of the information to criminally investigate or prosecute any alcohol or drug abuse patient.[facility]In the event this information is protected by the Federal Confidentiality of Alcohol and Drug Abuse Patient Records regulations: The Federal rules restrict any use of the information to criminally investigate or prosecute any alcohol or drug abuse patient.[facility] HospitalIn the event this information is protected by the Federal Confidentiality of Alcohol and Drug Abuse Patient Records regulations: The Federal rules restrict any use of the information to criminally investigate or prosecute any alcohol or drug abuse patient.[facility] HospitalIn the event this information is protected by the Federal Confidentiality of Alcohol and Drug Abuse Patient Records regulations: The Federal rules restrict any use of the information to criminally investigate or prosecute any alcohol or drug abuse patient.[facility] HospitalIn the event this information is protected by the Federal Confidentiality of Alcohol and Drug Abuse Patient Records regulations: The Federal rules restrict any use of the information to criminally investigate or prosecute any alcohol or drug abuse patient.[facility] HospitalIn the event this information is protected by the Federal Confidentiality of Alcohol and Drug Abuse Patient Records regulations: The Federal rules restrict any use of the information to criminally investigate or prosecute any alcohol or drug abuse patient.[facility] HospitalIn the event this information is protected by the Federal Confidentiality of Alcohol and Drug Abuse Patient Records regulations: The Federal rules restrict any use of the information to criminally investigate or prosecute any alcohol or drug abuse patient.[facility] HospitalIn the event this information is protected by the Federal Confidentiality of Alcohol and Drug Abuse Patient Records regulations: The Federal rules restrict any use of the information to criminally investigate or prosecute any alcohol or drug abuse patient.[facility] HospitalIn the event this information is protected by the Federal Confidentiality of Alcohol and Drug Abuse Patient Records regulations: The Federal rules restrict any use of the information to criminally investigate or prosecute any alcohol or drug abuse patient.[facility] HospitalIn the event this information is protected by the Federal Confidentiality of Alcohol and Drug Abuse Patient Records regulations: The Federal rules restrict any use of the information to criminally investigate or prosecute any alcohol or drug abuse patient.[facility] HospitalIn the event this information is protected by the Federal Confidentiality of Alcohol and Drug Abuse Patient Records regulations: The Federal rules restrict any use of the information to criminally investigate or prosecute any alcohol or drug abuse patient.[facility] HospitalIn the event this information is protected by the Federal Confidentiality of Alcohol and Drug Abuse Patient Records regulations: The Federal rules restrict any use of the information to criminally investigate or prosecute any alcohol or drug abuse patient.[facility] HospitalIn the event this information is protected by the Federal Confidentiality of Alcohol and Drug Abuse Patient Records regulations: The Federal rules restrict any use of the information to criminally investigate or prosecute any alcohol or drug abuse patient.[facility] HospitalIn the event this information is protected by the Federal Confidentiality of Alcohol and Drug Abuse Patient Records regulations: The Federal rules restrict any use of the information to criminally investigate or prosecute any alcohol or drug abuse patient.[facility] HospitalIn the event this information is protected by the Federal Confidentiality of Alcohol and Drug Abuse Patient Records regulations: The Federal rules restrict any use of the information to criminally investigate or prosecute any alcohol or drug abuse patient.[facility] HospitalIn the event this information is protected by the Federal Confidentiality of Alcohol and Drug Abuse Patient Records regulations: The Federal rules restrict any use of the information to criminally investigate or prosecute any alcohol or drug abuse patient.[facility] HospitalIn the event this information is protected by the Federal Confidentiality of Alcohol and Drug Abuse Patient Records regulations: The Federal rules restrict any use of the information to criminally investigate or prosecute any alcohol or drug abuse patient.[facility] HospitalIn the event this information is protected by the Federal Confidentiality of Alcohol and Drug Abuse Patient Records regulations: The Federal rules restrict any use of the information to criminally investigate or prosecute any alcohol or drug abuse patient.[facility] HospitalIn the event this information is protected by the Federal Confidentiality of Alcohol and Drug Abuse Patient Records regulations: The Federal rules restrict any use of the information to criminally investigate or prosecute any alcohol or drug abuse patient.[facility] HospitalIn the event this information is protected by the Federal Confidentiality of Alcohol and Drug Abuse Patient Records regulations: The Federal rules restrict any use of the information to criminally investigate or prosecute any alcohol or drug abuse patient.[facility] HospitalIn the event this information is protected by the Federal Confidentiality of Alcohol and Drug Abuse Patient Records regulations: The Federal rules restrict any use of the information to criminally investigate or prosecute any alcohol or drug abuse patient.[facility] HospitalIn the event this information is protected by the Federal Confidentiality of Alcohol and Drug Abuse Patient Records regulations: The Federal rules restrict any use of the information to criminally investigate or prosecute any alcohol or drug abuse patient.[facility] HospitalIn the event this information is protected by the Federal Confidentiality of Alcohol and Drug Abuse Patient Records regulations: The Federal rules restrict any use of the information to criminally investigate or prosecute any alcohol or drug abuse patient.[facility] HospitalIn the event this information is protected by the Federal Confidentiality of Alcohol and Drug Abuse Patient Records regulations: The Federal rules restrict any use of the information to criminally investigate or prosecute any alcohol or drug abuse patient.[facility] HospitalIn the event this information is protected by the Federal Confidentiality of Alcohol and Drug Abuse Patient Records regulations: The Federal rules restrict any use of the information to criminally investigate or prosecute any alcohol or drug abuse patient.[facility] HospitalIn the event this information is protected by the Federal Confidentiality of Alcohol and Drug Abuse Patient Records regulations: The Federal rules restrict any use of the information to criminally investigate or prosecute any alcohol or drug abuse patient.[facility] HospitalIn the event this information is protected by the Federal Confidentiality of Alcohol and Drug Abuse Patient Records regulations: The Federal rules restrict any use of the information to criminally investigate or prosecute any alcohol or drug abuse patient.[facility] HospitalIn the event this information is protected by the Federal Confidentiality of Alcohol and Drug Abuse Patient Records regulations: The Federal rules restrict any use of the information to criminally investigate or prosecute any alcohol or drug abuse patient.[facility] HospitalIn the event this information is protected by the Federal Confidentiality of Alcohol and Drug Abuse Patient Records regulations: The Federal rules restrict any use of the information to criminally investigate or prosecute any alcohol or drug abuse patient.[facility] HospitalIn the event this information is protected by the Federal Confidentiality of Alcohol and Drug Abuse Patient Records regulations: The Federal rules restrict any use of the information to criminally investigate or prosecute any alcohol or drug abuse patient.[facility] HospitalIn the event this information is protected by the Federal Confidentiality of Alcohol and Drug Abuse Patient Records regulations: The Federal rules restrict any use of the information to criminally investigate or prosecute any alcohol or drug abuse patient.[facility] HospitalIn the event this information is protected by the Federal Confidentiality of Alcohol and Drug Abuse Patient Records regulations: The Federal rules restrict any use of the information to criminally investigate or prosecute any alcohol or drug abuse patient.[facility] HospitalIn the event this information is protected by the Federal Confidentiality of Alcohol and Drug Abuse Patient Records regulations: The Federal rules restrict any use of the information to criminally investigate or prosecute any alcohol or drug abuse patient.[facility] HospitalIn the event this information is protected by the Federal Confidentiality of Alcohol and Drug Abuse Patient Records regulations: The Federal rules restrict any use of the information to criminally investigate or prosecute any alcohol or drug abuse patient.[facility] HospitalIn the event this information is protected by the Federal Confidentiality of Alcohol and Drug Abuse Patient Records regulations: The Federal rules restrict any use of the information to criminally investigate or prosecute any alcohol or drug abuse patient.[facility] HospitalIn the event this information is protected by the Federal Confidentiality of Alcohol and Drug Abuse Patient Records regulations: The Federal rules restrict any use of the information to criminally investigate or prosecute any alcohol or drug abuse patient.[facility] HospitalIn the event this information is protected by the Federal Confidentiality of Alcohol and Drug Abuse Patient Records regulations: The Federal rules restrict any use of the information to criminally investigate or prosecute any alcohol or drug abuse patient.[facility] HospitalIn the event this information is protected by the Federal Confidentiality of Alcohol and Drug Abuse Patient Records regulations: The Federal rules restrict any use of the information to criminally investigate or prosecute any alcohol or drug abuse patient.[facility] HospitalIn the event this information is protected by the Federal Confidentiality of Alcohol and Drug Abuse Patient Records regulations: The Federal rules restrict any use of the information to criminally investigate or prosecute any alcohol or drug abuse patient.[facility] HospitalIn the event this information is protected by the Federal Confidentiality of Alcohol and Drug Abuse Patient Records regulations: The Federal rules restrict any use of the information to criminally investigate or prosecute any alcohol or drug abuse patient.[facility] HospitalIn the event this information is protected by the Federal Confidentiality of Alcohol and Drug Abuse Patient Records regulations: The Federal rules restrict any use of the information to criminally investigate or prosecute any alcohol or drug abuse patient.[facility] HospitalIn the event this information is protected by the Federal Confidentiality of Alcohol and Drug Abuse Patient Records regulations: The Federal rules restrict any use of the information to criminally investigate or prosecute any alcohol or drug abuse patient.[facility] HospitalIn the event this information is protected by the Federal Confidentiality of Alcohol and Drug Abuse Patient Records regulations: The Federal rules restrict any use of the information to criminally investigate or prosecute any alcohol or drug abuse patient.[facility] HospitalIn the event this information is protected by the Federal Confidentiality of Alcohol and Drug Abuse Patient Records regulations: The Federal rules restrict any use of the information to criminally investigate or prosecute any alcohol or drug abuse patient.[facility] HospitalIn the event this information is protected by the Federal Confidentiality of Alcohol and Drug Abuse Patient Records regulations: The Federal rules restrict any use of the information to criminally investigate or prosecute any alcohol or drug abuse patient.[facility] HospitalIn the event this information is protected by the Federal Confidentiality of Alcohol and Drug Abuse Patient Records regulations: The Federal rules restrict any use of the information to criminally investigate or prosecute any alcohol or drug abuse patient.[facility] HospitalIn the event this information is protected by the Federal Confidentiality of Alcohol and Drug Abuse Patient Records regulations: The Federal rules restrict any use of the information to criminally investigate or prosecute any alcohol or drug abuse patient.[facility] HospitalIn the event this information is protected by the Federal Confidentiality of Alcohol and Drug Abuse Patient Records regulations: The Federal rules restrict any use of the information to criminally investigate or prosecute any alcohol or drug abuse patient.[facility] the event this information is protected by the Federal Confidentiality of Alcohol and Drug Abuse Patient Records regulations: The Federal rules restrict any use of the information to criminally investigate or prosecute any alcohol or drug abuse patient.[facility] HospitalIn the event this information is protected by the Federal Confidentiality of Alcohol and Drug Abuse Patient Records regulations: The Federal rules restrict any use of the information to criminally investigate or prosecute any alcohol or drug abuse patient.[facility] HospitalIn the event this information is protected by the Federal Confidentiality of Alcohol and Drug Abuse Patient Records regulations: The Federal rules restrict any use of the information to criminally investigate or prosecute any alcohol or drug abuse patient.[facility]In the event this information is protected by the Federal Confidentiality of Alcohol and Drug Abuse Patient Records regulations: The Federal rules restrict any use of the information to criminally investigate or prosecute any alcohol or drug abuse patient.[facility] HospitalIn the event this information is protected by the Federal Confidentiality of Alcohol and Drug Abuse Patient Records regulations: The Federal rules restrict any use of the information to criminally investigate or prosecute any alcohol or drug abuse patient.[facility] HospitalIn the event this information is protected by the Federal Confidentiality of Alcohol and Drug Abuse Patient Records regulations: The Federal rules restrict any use of the information to criminally investigate or prosecute any alcohol or drug abuse patient.[facility] HospitalIn the event this information is protected by the Federal Confidentiality of Alcohol and Drug Abuse Patient Records regulations: The Federal rules restrict any use of the information to criminally investigate or prosecute any alcohol or drug abuse patient.[facility] HospitalIn the event this information is protected by the Federal Confidentiality of Alcohol and Drug Abuse Patient Records regulations: The Federal rules restrict any use of the information to criminally investigate or prosecute any alcohol or drug abuse patient.[facility] HospitalIn the event this information is protected by the Federal Confidentiality of Alcohol and Drug Abuse Patient Records regulations: The Federal rules restrict any use of the information to criminally investigate or prosecute any alcohol or drug abuse patient.[facility] HospitalIn the event this information is protected by the Federal Confidentiality of Alcohol and Drug Abuse Patient Records regulations: The Federal rules restrict any use of the information to criminally investigate or prosecute any alcohol or drug abuse patient.[facility] HospitalIn the event this information is protected by the Federal Confidentiality of Alcohol and Drug Abuse Patient Records regulations: The Federal rules restrict any use of the information to criminally investigate or prosecute any alcohol or drug abuse patient.[facility] HospitalIn the event this information is protected by the Federal Confidentiality of Alcohol and Drug Abuse Patient Records regulations: The Federal rules restrict any use of the information to criminally investigate or prosecute any alcohol or drug abuse patient.[facility] HospitalIn the event this information is protected by the Federal Confidentiality of Alcohol and Drug Abuse Patient Records regulations: The Federal rules restrict any use of the information to criminally investigate or prosecute any alcohol or drug abuse patient.[facility] HospitalIn the event this information is protected by the Federal Confidentiality of Alcohol and Drug Abuse Patient Records regulations: The Federal rules restrict any use of the information to criminally investigate or prosecute any alcohol or drug abuse patient.[facility] HospitalIn the event this information is protected by the Federal Confidentiality of Alcohol and Drug Abuse Patient Records regulations: The Federal rules restrict any use of the information to criminally investigate or prosecute any alcohol or drug abuse patient.[facility] HospitalIn the event this information is protected by the Federal Confidentiality of Alcohol and Drug Abuse Patient Records regulations: The Federal rules restrict any use of the information to criminally investigate or prosecute any alcohol or drug abuse patient.[facility] HospitalIn the event this information is protected by the Federal Confidentiality of Alcohol and Drug Abuse Patient Records regulations: The Federal rules restrict any use of the information to criminally investigate or prosecute any alcohol or drug abuse patient.[facility] HospitalIn the event this information is protected by the Federal Confidentiality of Alcohol and Drug Abuse Patient Records regulations: The Federal rules restrict any use of the information to criminally investigate or prosecute any alcohol or drug abuse patient.[facility] HospitalIn the event this information is protected by the Federal Confidentiality of Alcohol and Drug Abuse Patient Records regulations: The Federal rules restrict any use of the information to criminally investigate or prosecute any alcohol or drug abuse patient.[facility] HospitalIn the event this information is protected by the Federal Confidentiality of Alcohol and Drug Abuse Patient Records regulations: The Federal rules restrict any use of the information to criminally investigate or prosecute any alcohol or drug abuse patient.[facility] HospitalIn the event this information is protected by the Federal Confidentiality of Alcohol and Drug Abuse Patient Records regulations: The Federal rules restrict any use of the information to criminally investigate or prosecute any alcohol or drug abuse patient.[facility] HospitalIn the event this information is protected by the Federal Confidentiality of Alcohol and Drug Abuse Patient Records regulations: The Federal rules restrict any use of the information to criminally investigate or prosecute any alcohol or drug abuse patient.[facility] HospitalIn the event this information is protected by the Federal Confidentiality of Alcohol and Drug Abuse Patient Records regulations: The Federal rules restrict any use of the information to criminally investigate or prosecute any alcohol or drug abuse patient.[facility] HospitalIn the event this information is protected by the Federal Confidentiality of Alcohol and Drug Abuse Patient Records regulations: The Federal rules restrict any use of the information to criminally investigate or prosecute any alcohol or drug abuse patient.[facility] HospitalIn the event this information is protected by the Federal Confidentiality of Alcohol and Drug Abuse Patient Records regulations: The Federal rules restrict any use of the information to criminally investigate or prosecute any alcohol or drug abuse patient.[facility] HospitalIn the event this information is protected by the Federal Confidentiality of Alcohol and Drug Abuse Patient Records regulations: The Federal rules restrict any use of the information to criminally investigate or prosecute any alcohol or drug abuse patient.[facility] HospitalIn the event this information is protected by the Federal Confidentiality of Alcohol and Drug Abuse Patient Records regulations: The Federal rules restrict any use of the information to criminally investigate or prosecute any alcohol or drug abuse patient.[facility] HospitalIn the event this information is protected by the Federal Confidentiality of Alcohol and Drug Abuse Patient Records regulations: The Federal rules restrict any use of the information to criminally investigate or prosecute any alcohol or drug abuse patient.[facility] HospitalIn the event this information is protected by the Federal Confidentiality of Alcohol and Drug Abuse Patient Records regulations: The Federal rules restrict any use of the information to criminally investigate or prosecute any alcohol or drug abuse patient.[facility] HospitalIn the event this information is protected by the Federal Confidentiality of Alcohol and Drug Abuse Patient Records regulations: The Federal rules restrict any use of the information to criminally investigate or prosecute any alcohol or drug abuse patient.[facility] HospitalIn the event this information is protected by the Federal Confidentiality of Alcohol and Drug Abuse Patient Records regulations: The Federal rules restrict any use of the information to criminally investigate or prosecute any alcohol or drug abuse patient.[facility] HospitalIn the event this information is protected by the Federal Confidentiality of Alcohol and Drug Abuse Patient Records regulations: The Federal rules restrict any use of the information to criminally investigate or prosecute any alcohol or drug abuse patient.[facility] HospitalIn the event this information is protected by the Federal Confidentiality of Alcohol and Drug Abuse Patient Records regulations: The Federal rules restrict any use of the information to criminally investigate or prosecute any alcohol or drug abuse patient.[facility] HospitalIn the event this information is protected by the Federal Confidentiality of Alcohol and Drug Abuse Patient Records regulations: The Federal rules restrict any use of the information to criminally investigate or prosecute any alcohol or drug abuse patient.[facility] HospitalIn the event this information is protected by the Federal Confidentiality of Alcohol and Drug Abuse Patient Records regulations: The Federal rules restrict any use of the information to criminally investigate or prosecute any alcohol or drug abuse patient.[facility] HospitalIn the event this information is protected by the Federal Confidentiality of Alcohol and Drug Abuse Patient Records regulations: The Federal rules restrict any use of the information to criminally investigate or prosecute any alcohol or drug abuse patient.[facility] HospitalIn the event this information is protected by the Federal Confidentiality of Alcohol and Drug Abuse Patient Records regulations: The Federal rules restrict any use of the information to criminally investigate or prosecute any alcohol or drug abuse patient.[facility] HospitalIn the event this information is protected by the Federal Confidentiality of Alcohol and Drug Abuse Patient Records regulations: The Federal rules restrict any use of the information to criminally investigate or prosecute any alcohol or drug abuse patient.[facility] HospitalIn the event this information is protected by the Federal Confidentiality of Alcohol and Drug Abuse Patient Records regulations: The Federal rules restrict any use of the information to criminally investigate or prosecute any alcohol or drug abuse patient.[facility] HospitalIn the event this information is protected by the Federal Confidentiality of Alcohol and Drug Abuse Patient Records regulations: The Federal rules restrict any use of the information to criminally investigate or prosecute any alcohol or drug abuse patient.[facility] HospitalIn the event this information is protected by the Federal Confidentiality of Alcohol and Drug Abuse Patient Records regulations: The Federal rules restrict any use of the information to criminally investigate or prosecute any alcohol or drug abuse patient.[facility] HospitalIn the event this information is protected by the Federal Confidentiality of Alcohol and Drug Abuse Patient Records regulations: The Federal rules restrict any use of the information to criminally investigate or prosecute any alcohol or drug abuse patient.[facility] HospitalIn the event this information is protected by the Federal Confidentiality of Alcohol and Drug Abuse Patient Records regulations: The Federal rules restrict any use of the information to criminally investigate or prosecute any alcohol or drug abuse patient.[facility] HospitalIn the event this information is protected by the Federal Confidentiality of Alcohol and Drug Abuse Patient Records regulations: The Federal rules restrict any use of the information to criminally investigate or prosecute any alcohol or drug abuse patient.[facility] HospitalIn the event this information is protected by the Federal Confidentiality of Alcohol and Drug Abuse Patient Records regulations: The Federal rules restrict any use of the information to criminally investigate or prosecute any alcohol or drug abuse patient.[facility] HospitalIn the event this information is protected by the Federal Confidentiality of Alcohol and Drug Abuse Patient Records regulations: The Federal rules restrict any use of the information to criminally investigate or prosecute any alcohol or drug abuse patient.[facility] HospitalIn the event this information is protected by the Federal Confidentiality of Alcohol and Drug Abuse Patient Records regulations: The Federal rules restrict any use of the information to criminally investigate or prosecute any alcohol or drug abuse patient.[facility] HospitalIn the event this information is protected by the Federal Confidentiality of Alcohol and Drug Abuse Patient Records regulations: The Federal rules restrict any use of the information to criminally investigate or prosecute any alcohol or drug abuse patient.[facility] HospitalIn the event this information is protected by the Federal Confidentiality of Alcohol and Drug Abuse Patient Records regulations: The Federal rules restrict any use of the information to criminally investigate or prosecute any alcohol or drug abuse patient.[facility] HospitalIn the event this information is protected by the Federal Confidentiality of Alcohol and Drug Abuse Patient Records regulations: The Federal rules restrict any use of the information to criminally investigate or prosecute any alcohol or drug abuse patient.[facility] the event this information is protected by the Federal Confidentiality of Alcohol and Drug Abuse Patient Records regulations: The Federal rules restrict any use of the information to criminally investigate or prosecute any alcohol or drug abuse patient.[facility] HospitalIn the event this information is protected by the Federal Confidentiality of Alcohol and Drug Abuse Patient Records regulations: The Federal rules restrict any use of the information to criminally investigate or prosecute any alcohol or drug abuse patient.[facility] HospitalIn the event this information is protected by the Federal Confidentiality of Alcohol and Drug Abuse Patient Records regulations: The Federal rules restrict any use of the information to criminally investigate or prosecute any alcohol or drug abuse patient.[facility]In the event this information is protected by the Federal Confidentiality of Alcohol and Drug Abuse Patient Records regulations: The Federal rules restrict any use of the information to criminally investigate or prosecute any alcohol or drug abuse patient.[facility] HospitalIn the event this information is protected by the Federal Confidentiality of Alcohol and Drug Abuse Patient Records regulations: The Federal rules restrict any use of the information to criminally investigate or prosecute any alcohol or drug abuse patient.[facility] HospitalIn the event this information is protected by the Federal Confidentiality of Alcohol and Drug Abuse Patient Records regulations: The Federal rules restrict any use of the information to criminally investigate or prosecute any alcohol or drug abuse patient.[facility] Care Teams (unrecognized sec tion and content) [employer] Relationship Specialty Start Date End Date Breanne Whittington MD [address] [facility] [place] [id number] PCP - General Family Practice 12/17/20 Michael Ceballos [address] [place] [id number] Referring Orthopedics 06/11/20 [place] [address] [facility] [place] [address] Radiation Oncology 01/24/21 [employer] Relationship Specialty Start Date End Date Breanne Whittington MD [address] [place] [address] PCP - General Family Practice 12/17/20 Michael Ceballos [address] [place] [address] [phone] Referring Orthopedics 06/11/20 [place] [address] [place] [address] Radiation Oncology 01/24/21 Oriental Rug Stretcher Relationship Specialty Start Date End Date Breanne Whittington MD [address] [place] [address] PCP - General Family Practice 12/17/20 Michael Ceballos [address] [place] [address] [phone] Referring Orthopedics 06/11/20 [place] [address] [place] [address] Radiation Oncology 01/24/21 Oriental Rug Stretcher Relationship Specialty Start Date End Date Breanne Whittington MD [address] [place] [address] PCP - General Family Practice 12/17/20 Michael Ceballos [address] [place] [address] [phone] Referring Orthopedics 06/11/20 [place] [address] [place] [address] Radiation Oncology 01/24/21 Oriental Rug Stretcher Relationship Specialty Start Date End Date Breanne Whittington MD [address] [place] [address] PCP - General Family Practice 12/17/20 Michael Ceballos [address] [place] [address] Referring Orthopedics 06/11/20 [place] [address] [place] [address] Radiation Oncology 01/24/21 Oriental Rug Stretcher Relationship Specialty Start Date End Date Breanne Whittington MD [address] [place] [address] PCP - General Family Practice 12/17/20 Ceballos [facility] Melita [address] [place] [address] Referring Orthopedics 06/11/20 [place] [address] [place] [address] Radiation Oncology 01/24/21 Oriental Rug Stretcher Relationship Specialty Start Date End Date Breanne Whittington MD [address] [place] [address] PCP - General Family Practice 12/17/20 [place] [facility] Melita [address] [place] [address] Referring Orthopedics 06/11/20 [place] [address] [place] [address] Radiation Oncology 01/24/21 Oriental Rug Stretcher Relationship Specialty Start Date End Date Breanne Whittington MD [address] [place] [address] PCP - General Family Practice 12/17/20 Michael Ceballos [address] [place] [address] Referring Orthopedics 06/11/20 [place] [address] [place] [address] Radiation Oncology 01/24/21 Oriental Rug Stretcher Relationship Specialty Start Date End Date Breanne Whittington MD [address] [place] [address] PCP - General Family Practice 12/17/20 Michael Ceballos [address] [place] [address] Referring Orthopedics 06/11/20 [place] [address] [place] [address] Radiation Oncology 01/24/21 Oriental Rug Stretcher Relationship Specialty Start Date End Date Breanne Whittington MD [address] [place] [address] PCP - General Family Practice 12/17/20 Michael Ceballos [address] [place] [address] [phone] Referring Orthopedics 06/11/20 [place] [address] [facility] [place] [address] Radiation Oncology 01/24/21 Oriental Rug Stretcher Relationship Specialty Start Date End Date Breanne Whittington MD [address] [place] [address] PCP - General Family Practice 12/17/20 Michael Ceballos [address] [place] [address] Referring Orthopedics 06/11/20 [place] [address] [place] [address] Radiation Oncology 01/24/21 Oriental Rug Stretcher Relationship Specialty Start Date End Date Breanne Whittington MD [address] [place], [place] [address] PCP - General Family Practice 12/17/20 Michael Ceballos [address] [place] [address] Referring Orthopedics 06/11/20 [place] [address] [place] [address] Radiation Oncology 01/24/21 Oriental Rug Stretcher Relationship Specialty Start Date End Date Breanne Whittington MD [address] [place] [address] PCP - General Family Practice 12/17/20 Michael Ceballos [address] [place] [phone] Referring Orthopedics 06/11/20 [place] [address] [place] [address] Radiation Oncology 01/24/21 Oriental Rug Stretcher Relationship Specialty Start Date End Date Breanne Whittington MD [address] [place] [address] PCP - General Family Practice 12/17/20 Michael Ceballos [address] [place] [address] Referring Orthopedics 06/11/20 [place] [address] [place] [address] Radiation Oncology 01/24/21 Oriental Rug Stretcher Relationship Specialty Start Date End Date Breanne Whittington MD [address] [place] [address] PCP - General Family Practice 12/17/20 Michael Ceballos [address] [place] [address] [phone] Referring Orthopedics 06/11/20 [place] [address] [place] [address] Radiation Oncology 01/24/21 Oriental Rug Stretcher Relationship Specialty Start Date End Date Breanne Whittington MD [address] [place] [address] PCP - General Family Practice 12/17/20 Michael Ceballos [address] [place] [address] [phone] Referring Orthopedics 06/11/20 [place] [address] [place] [address] Radiation Oncology 01/24/21 Oriental Rug Stretcher Relationship Specialty Start Date End Date Breanne Whittington MD [address] [place] [address] PCP - General Family Practice 12/17/20 Michael Ceballos [address] [place] [address] [phone] Referring Orthopedics 06/11/20 [place] [address] [place] [address] Radiation Oncology 01/24/21 Oriental Rug Stretcher Relationship Specialty Start Date End Date Breanne Whittington MD [address] [place] [address] PCP - General Family Practice 12/17/20 Michael Ceballos [address] [place] [address] [phone] Referring Orthopedics 06/11/20 [place] [address] [place] [address] Radiation Oncology 01/24/21 Oriental Rug Stretcher Relationship Specialty Start Date End Date Breanne Whittington MD [address] [place] [address] PCP - General Family Practice 12/17/20 Michael Ceballos [address] [place] [address] Referring Orthopedics 06/11/20 [place] [address] [place] [address] Radiation Oncology 01/24/21 Oriental Rug Stretcher Relationship Specialty Start Date End Date Breanne Whittington MD [address] [place] [address] PCP - General Family Practice 12/17/20 Michael Ceballos [address] [place] [address] [phone] Referring Orthopedics 06/11/20 [place] [address] [place] [address] Radiation Oncology 01/24/21 Oriental Rug Stretcher Relationship Specialty Start Date End Date Breanne Whittington MD [address] [place] [address] PCP - General Family Practice 12/17/20 Michael Ceballos [address] [place] [address] Referring Orthopedics 06/11/20 [place] [address] [facility] [place] [address] Radiation Oncology 01/24/21 Oriental Rug Stretcher Relationship Specialty Start Date End Date Breanne Whittington MD [address] [place] [address] PCP - General Family Practice 12/17/20 Michael Ceballos [address] [place] [address] [phone] Referring Orthopedics 06/11/20 [place] [address] [facility] [place] [address] Radiation Oncology 01/24/21 Oriental Rug Stretcher Relationship Specialty Start Date End Date Breanne Whittington MD [address] [place] [address] PCP - General Family Medicine 12/17/20 Michael Ceballos [address] [place] [address] Referring Orthopedics 06/11/20 [place] [address] [place] [address] Radiation Oncology 01/24/21 Oriental Rug Stretcher Relationship Specialty Start Date End Date Breanne Whittington MD [address] [place] [address] PCP - General Family Medicine 12/17/20 Michael Ceballos [address] [place] [address] Referring Orthopedics 06/11/20 [place] [address] [place] [address] Radiation Oncology 01/24/21 Oriental Rug Stretcher Relationship Specialty Start Date End Date Breanne Whittington MD [address] [place] [address] PCP - General Family Medicine 12/17/20 Michael Ceballos [address] [place] [address] [phone] Referring Orthopedics 06/11/20 [place] [address] [place] [address] Radiation Oncology 01/24/21 Oriental Rug Stretcher Relationship Specialty Start Date End Date Breanne Whittington MD [address] [place] [address] PCP - General Family Medicine 12/17/20 Michael Ceballos [address] [place] [address] [phone] Referring Orthopedics 06/11/20 [place] [address] [place] [address] Radiation Oncology 01/24/21 Oriental Rug Stretcher Relationship Specialty Start Date End Date Breanne Whittington MD [address] [place] [address] PCP - General Family Medicine 12/17/20 Michael Ceballos [address] [place] [address] Referring Orthopedics 06/11/20 [place] [address] [facility] [place] [address] Radiation Oncology 01/24/21 Oriental Rug Stretcher Relationship Specialty Start Date End Date Breanne Whittington MD [address] [place] [address] PCP - General Family Medicine 12/17/20 Michael Ceballos [address] [place] [address] Referring Orthopedics 06/11/20 [place] [address] [place] [address] Radiation Oncology 01/24/21 Oriental Rug Stretcher Relationship Specialty Start Date End Date Breanne Whittington MD [address] [place] [address] PCP - General Family Medicine 12/17/20 Michael Ceballos [address] [place] [address] Referring Orthopedics 06/11/20 [place] [address] [place] [address] Radiation Oncology 01/24/21 Oriental Rug Stretcher Relationship Specialty Start Date End Date Breanne Whittington MD [address] [place] [address] PCP - General Family Medicine 12/17/20 Michael Ceballos [address] [place] [address] Referring Orthopedics 06/11/20 [place] [address] [place] [address] Radiation Oncology 01/24/21 Oriental Rug Stretcher Relationship Specialty Start Date End Date Breanne Whittington MD [address] [place] [address] PCP - General Family Medicine 12/17/20 Michael Ceballos [address] [place] [address]47[address] Referring Orthopedics 06/11/20 [place] [address] [place] [address] Radiation Oncology 01/24/21 Oriental Rug Stretcher Relationship Specialty Start Date End Date Breanne Whittington MD [address] [place] [address] PCP - General Family Medicine 12/17/20 Michael Ceballos [address] [facility] [address] [place] [address] [phone] Referring Orthopedics 06/11/20 [place] [address] [place] [address] Radiation Oncology 01/24/21 Oriental Rug Stretcher Relationship Specialty Start Date End Date Breanne Whittington MD [address] [place] [address] PCP - General Family Medicine 12/17/20 Michael Ceballos [address] [place] [address] Referring Orthopedics 06/11/20 [place] [address] [place] [address] Radiation Oncology 01/24/21 Oriental Rug Stretcher Relationship Specialty Start Date End Date Breanne Whittington MD [address] [place] [address] PCP - General Family Medicine 12/17/20 Michael Ceballos [address] [place] [address] [phone] Referring Orthopedics 06/11/20 [place] [address] [place] [address] Radiation Oncology 01/24/21 Oriental Rug Stretcher Relationship Specialty Start Date End Date Breanne Whittington MD [address] [place] [address] PCP - General Family Medicine 12/17/20 [place] [facility] Melita [address] [place] [address] [phone] Referring Orthopedics 06/11/20 [place] [address] [facility] [place] [address] Radiation Oncology 01/24/21 Angela Zhou, [facility] Financial Aid Coordinator Hematology/Oncology 03/20/22 Oriental Rug Stretcher Relationship Specialty Start Date End Date Breanne Whittington MD [address] [place] [address] PCP - General Family Medicine 12/17/20 Michael Ceballos [address] [place] [address] Referring Orthopedics 06/11/20 [place] [address] [place] [address] Radiation Oncology 01/24/21 Angela Zhou [facility] Financial Aid Coordinator Hematology/Oncology 03/20/22 Oriental Rug Stretcher Relationship Specialty Start Date End Date Breanne Whittington MD [address] [place] [address] PCP - General Family Medicine 12/17/20 Michael Ceballos [address] [place] [address] Referring Orthopedics 06/11/20 [place] [address] [place] [address] Radiation Oncology 01/24/21 Angela Zhou [facility] Financial Aid Coordinator Hematology/Oncology 03/20/22 Oriental Rug Stretcher Relationship Specialty Start Date End Date Breanne Whittington MD [address] [place] [address] PCP - General Family Medicine 12/17/20 Michael Ceballos [address] [place] [address] Referring Orthopedics 06/11/20 [place] [address] [place] [address] Radiation Oncology 01/24/21 Angela Zhou [facility] Financial Aid Coordinator Hematology/Oncology 03/20/22 Oriental Rug Stretcher Relationship Specialty Start Date End Date Breanne Whittington MD [address] [place] [address] PCP - General Family Medicine 12/17/20 Michael Ceballos [address] [place] [address] Referring Orthopedics 06/11/20 [place] [address] [place] [address] Radiation Oncology 01/24/21 Angela Zhou [facility] Financial Aid Coordinator Hematology/Oncology 03/20/22 Oriental Rug Stretcher Relationship Specialty Start Date End Date Breanne Whittington MD [address] [place] [address] PCP - General Family Medicine 12/17/20 Michael Ceballos [address] [place] [address] Referring Orthopedics 06/11/20 [place] [address] [place] [address] Radiation Oncology 01/24/21 Angela Zhou, [facility] Financial Aid Coordinator Hematology/Oncology 03/20/22 Oriental Rug Stretcher Relationship Specialty Start Date End Date Breanne Whittington MD [address] [place] [address] PCP - General Family Medicine 12/17/20 Michael Ceballos [address] [place] [address] Referring Orthopedics 06/11/20 [place] [address] [place] [address] Radiation Oncology 01/24/21 Angela Zhou, [facility] Financial Aid Coordinator Hematology/Oncology 03/20/22 Oriental Rug Stretcher Relationship Specialty Start Date End Date Breanne Whittington MD [address] [place] [address] PCP - General Family Medicine 12/17/20 Michael Ceballos [address] [place] [address] Referring Orthopedics 06/11/20 [place] [address] [facility] [place] [address] Radiation Oncology 01/24/21 Angela Zhou [facility] Financial Aid Coordinator Hematology/Oncology 03/20/22 Oriental Rug Stretcher Relationship Specialty Start Date End Date Breanne Whittington MD [address] [place], [place] [address]181 PCP - General Family Medicine 12/17/20 Michael Ceballos [address] [address] Referring Orthopedics 06/11/20 [place] [address] [place] [address] Radiation Oncology 01/24/21 Angela Zhou [facility] Financial Aid Coordinator Hematology/Oncology 03/20/22 Oriental Rug Stretcher Relationship Specialty Start Date End Date Breanne Whittington MD [address] [place] [address] PCP - General Family Medicine 12/17/20 Michael C[facility]allos [address] [facility] [address] [address] Referring Orthopedics 06/11/20 [place] [address] [facility] [place] [address] Radiation Oncology 01/24/21 Angela Zhou, [facility] Financial Aid Coordinator Hematology/Oncology 03/20/22 Oriental Rug Stretcher Relationship Specialty Start Date End Date Breanne Whittington MD [address] [place] [address] PCP - General Family Medicine 12/17/20 [place] [facility] Melita [address] [place] [address] Referring Orthopedics 06/11/20 [place] [address] [place] [address] Radiation Oncology 01/24/21 Angela Zhou [facility] Financial Aid Coordinator Hematology/Oncology 03/20/22 Oriental Rug Stretcher Relationship Specialty Start Date End Date Breanne Whittington MD [address] [place], [place] 154621 PCP - General Family Medicine 12/17/20 [place] [facility] Melita [address] [place] [address] Referring Orthopedics 06/11/20 [place] [address] [place] [address] Radiation Oncology 01/24/21 Angela Zhou [facility] Financial Aid Coordinator Hematology/Oncology 03/20/22 Oriental Rug Stretcher Relationship Specialty Start Date End Date Breanne Whittington MD [address] [place] [address] PCP - General Family Medicine 12/17/20 [place] [facility] Melita [address] [facility] [address] [place] [address] [phone] Referring Orthopedics 06/11/20 [place] [address] [place] [address] Radiation Oncology 01/24/21 Angela Zhou [facility] Financial Aid Coordinator Hematology/Oncology 03/20/22 Oriental Rug Stretcher Relationship Specialty Start Date End Date Breanne Whittington MD [address] [place] [address] PCP - General Family Medicine 12/17/20 Michael Ceballos [address] [place] [address] Referring Orthopedics 06/11/20 [place] [address] [place] [address] Radiation Oncology 01/24/21 Angela Zhou [facility] Financial Aid Coordinator Hematology/Oncology 03/20/22 Oriental Rug Stretcher Relationship Specialty Start Date End Date Breanne Whittington MD [address] [place] [address] PCP - General Family Medicine 12/17/20 Michael Ceballos [address] [place] [address] [phone] Referring Orthopedics 06/11/20 [place] [address] [place] [address] Radiation Oncology 01/24/21 Angela Zhou [facility] Financial Aid Coordinator Hematology/Oncology 03/20/22 Oriental Rug Stretcher Relationship Specialty Start Date End Date Breanne Whittington MD [address] [place] [address] PCP - General Family Medicine 12/17/20 Michael Ceballos [address] [place] [address] [phone] Referring Orthopedics 06/11/20 [place] [address] [place] [address] Radiation Oncology 01/24/21 Angela Zhou [facility] Financial Aid Coordinator Hematology/Oncology 03/20/22 Oriental Rug Stretcher Relationship Specialty Start Date End Date Breanne Whittington MD [address] [place] [address] PCP - General Family Medicine 12/17/20 Michael Ceballos [address] [place] [address] Referring Orthopedics 06/11/20 [place] [address] [place] [address] Radiation Oncology 01/24/21 Angela Zhou, [facility] Financial Aid Coordinator Hematology/Oncology 03/20/22 Oriental Rug Stretcher Relationship Specialty Start Date End Date Breanne Whittington MD [address] [place] [address] PCP - General Family Medicine 12/17/20 Michael Ceballos [address] [place] [address]51 [phone] Referring Orthopedics 06/11/20 [place] [address] [place] [address] Radiation Oncology 01/24/21 Angela Zhou, [facility] Financial Aid Coordinator Hematology/Oncology 03/20/22 Oriental Rug Stretcher Relationship Specialty Start Date End Date Breanne Whittington MD [address] [place] [address] PCP - General Family Medicine 12/17/20 Michael Ceballos [address] [place] [address] Referring Orthopedics 06/11/20 [place] [address] [place] [address] Radiation Oncology 01/24/21 Angela Zhou, [facility] Financial Aid Coordinator Hematology/Oncology 03/20/22 Oriental Rug Stretcher Relationship Specialty Start Date End Date Breanne Whittington MD [address] [place] [address] PCP - General Family Medicine 12/17/20 Michael Ceballos [address] [place] [address] Referring Orthopedics 06/11/20 [place] [address] [facility] [place] [address] Radiation Oncology 01/24/21 Angela Zhou, [facility] Financial Aid Coordinator Hematology/Oncology 03/20/22 Oriental Rug Stretcher Relationship Specialty Start Date End Date Breanne Whittington MD [address] [place] [address] PCP - General Family Medicine 12/17/20 Michael Ceballos [address] [place] [address] [phone] Referring Orthopedics 06/11/20 [place] [address] [place] [address] Radiation Oncology 01/24/21 Angela Zhou, [facility] Financial Aid Coordinator Hematology/Oncology 03/20/22 Oriental Rug Stretcher Relationship Specialty Start Date End Date Breanne Whittington MD [address] [place] [address] PCP - General Family Medicine 12/17/20 Michael Ceballos [address] [place] [address] [phone] Referring Orthopedics 06/11/20 [place] [address] [place] [address] Radiation Oncology 01/24/21 Angela Zhou LSW Financial Aid Coordinator Hematology/Oncology 03/20/22 Oriental Rug Stretcher Relationship Specialty Start Date End Date Breanne Whittington MD [address] [place], [place] [address]149[address] PCP - General Family Medicine 12/17/20 Michael Ceballos [address] [place] [address]58[address]8335 Referring Orthopedics 06/11/20 [place] [address] [place] [address] Radiation Oncology 01/24/21 Angela Zhou [facility] Financial Aid Coordinator Hematology/Oncology 03/20/22 Oriental Rug Stretcher Relationship Specialty Start Date End Date Breanne Whittington MD [address] [place], [place] 427011 PCP - General Family Medicine 12/17/20 Michael Ceballos [address] [place] [address] Referring Orthopedics 06/11/20 [place] [address] [place] [address] Radiation Oncology 01/24/21 Angela Zhou [employer] Financial Aid Coordinator Hematology/Oncology 03/20/22 Oriental Rug Stretcher Relationship Specialty Start Date End Date Breanne Whittington MD [address] [place], [place] 944961 PCP - General Family Medicine 12/17/20 Michael Ceballos [address] [place] [address] Referring Orthopedics 06/11/20 [place] [address] [place] [address] Radiation Oncology 01/24/21 Angela Zhou [facility] Financial Aid Coordinator Hematology/Oncology 03/20/22 Oriental Rug Stretcher Relationship Specialty Start Date End Date Breanne Whittington MD [address] [place], [place] 781511 PCP - General Family Medicine 12/17/20 Michael Ceballos [address] [place] [address] Referring Orthopedics 06/11/20 [place] [address] [place] [address] Radiation Oncology 01/24/21 Angela Zhou, [facility] Financial Aid Coordinator Hematology/Oncology 03/20/22 Oriental Rug Stretcher Relationship Specialty Start Date End Date Breanne Whittington MD [address] [place], [place] [address]861 PCP - General Family Medicine 12/17/20 Michael Ceballos [address] [facility] [address] [place] [address] Referring Orthopedics 06/11/20 [place] [address] [place] [address] Radiation Oncology 01/24/21 Angela Zhou [facility] Financial Aid Coordinator Hematology/Oncology 03/20/22 Oriental Rug Stretcher Relationship Specialty Start Date End Date Breanne Whittington MD [address] [place], [place] 393711 PCP - General Family Medicine 12/17/20 Michael Ceballos [address] [place] [address] Referring Orthopedics 06/11/20 [place] [address] [facility] [place] [address] Radiation Oncology 01/24/21 Angela Zhou [facility] Financial Aid Coordinator Hematology/Oncology 03/20/22 Oriental Rug Stretcher Relationship Specialty Start Date End Date Breanne Whittington MD [address] [place], [place] [address]471 PCP - General Family Medicine 12/17/20 Michael Ceballos [address] [place] [phone] Referring Orthopedics 06/11/20 [place] [address] [facility] [place] [address] Radiation Oncology 01/24/21 Angela Zhou [facility] Financial Aid Coordinator Hematology/Oncology 03/20/22 Oriental Rug Stretcher Relationship Specialty Start Date End Date Breanne Whittington MD [address] [place], [place] [address]20[address] PCP - General Family Medicine 12/17/20 Michael Ceballos [address] [place] [phone] Referring Orthopedics 06/11/20 [place] [address] [place] [address] Radiation Oncology 01/24/21 Angela Zhou SENIOR PRODUCTION MANAGER Financial Aid Coordinator Hematology/Oncology 03/20/22 Team Status: Active Member Role Status Dates Dr. Pedrito Ceballos MD Family Provider Active Dr. Breanne Whittington MD Primary Care Provider Active Team Status: Inactive Member Role Status Dates Dr. Breanne Whittington MD Primary Care Provider, Referring Provider Active Pedrito Mcfadden SUPERVISOR FURNACE PROCESS, SUPERVISOR FURNACE PROCESS-C Attending Provider Active Team Status: Inactive Member Role Status Dates Dr. Breanne Whittington MD Primary Care Provider, Referring Provider Active Dr. Gian Peterson MD Attending Provider Active Team Status: Active Member Role Status Dates Dr. Breanne Whittington MD Primary Care Provider, Referring Provider Active Dr. Gian Peterson MD Attending Provider, Other Prov ider Active Oriental Rug Stretcher Relationship Specialty Start Date End Date Breanen Whittington MD [address] [place], [place] [address] PCP - General Family Medicine 12/17/20 Michael Ceballos [address] [facility] [facility] [facility] [address] [place] [phone] Referring Orthopedics 06/11/20 [place] [address] [place] [address] Radiation Oncology 01/24/21 Angela Zhou [facility] Financial Aid Coordinator Hematology/Oncology 03/20/22 Oriental Rug Stretcher Relationship Specialty Start Date End Date Breanne Whittington MD [address] [place], [place] 4911[address] PCP - General Family Medicine 12/17/20 Michael Ceballos [address] [place] [phone] Referring Orthopedics 06/11/20 [place] [address] [place] [address] Radiation Oncology 01/24/21 Angela Zhou, [facility] Financial Aid Coordinator Hematology/Oncology 03/20/22 Oriental Rug Stretcher Relationship Specialty Start Date End Date Breanne Whittington MD [address] [place], [place] 9638[address] PCP - General Family Medicine 12/17/20 Michael Ceballos [address] [facility] [address] [phone] Referring Orthopedics 06/11/20 [place] [address] [place] [address] Radiation Oncology 01/24/21 Angela Zhou, [facility] Financial Aid Coordinator Hematology/Oncology 03/20/22 Oriental Rug Stretcher Relationship Specialty Start Date End Date Breanne Whittington MD [address] [place], [place] 633331 PCP - General Family Medicine 12/17/20 Michael Ceballos [address] [facility] [address] [place] [phone] Referring Orthopedics 06/11/20 [place] [address] [place] [address] Radiation Oncology 01/24/21 Angela Zhou LSW Financial Aid Coordinator Hematology/Oncology 03/20/22 Oriental Rug Stretcher Relationship Specialty Start Date End Date Breanne Whittington MD [address] [facility] [place] [place] [address] PCP - General Family Medicine 12/17/20 Michael Ceballos [address] [place] [phone] Referring Orthopedics 06/11/20 [place] [address] [place] [address] Radiation Oncology 01/24/21 Angela Zhou LSW Financial Aid Coordinator Hematology/Oncology 03/20/22 Oriental Rug Stretcher Relationship Specialty Start Date End Date Breanne Whittington MD [address] [place], [place] 835181 PCP - General Family Medicine 12/17/20 Michael Ceballos [address] [place] [phone] Referring Orthopedics 06/11/20 [place] [address] [place] [address] Radiation Oncology 01/24/21 Angela Zhou LSW Financial Aid Coordinator Hematology/Oncology 03/20/22 Oriental Rug Stretcher Relationship Specialty Start Date End Date Breanne Whittington MD [address] [place], [place] 9[address]301 PCP - General Family Medicine 12/17/20 Michael Ceballos [address] [place] [phone] Referring Orthopedics 06/11/20 [place] [address] [place] [address] Radiation Oncology 01/24/21 Angela Zhou, [facility] Financial Aid Coordinator Hematology/Oncology 03/20/22 Oriental Rug Stretcher Relationship Specialty Start Date End Date Breanne Whittington MD [address] [place], [place] 267191 PCP - General Family Medicine 12/17/20 Michael Ceballos [address] [place] [phone] Referring Orthopedics 06/11/20 [place] [address] [place] [address] Radiation Oncology 01/24/21 Angela Zhou, [facility] Financial Aid Coordinator Hematology/Oncology 03/20/22 Oriental Rug Stretcher Relationship Specialty Start Date End Date Breanne Wihttington MD [address] [place] [address] PCP - General Family Medicine 12/17/20 Michael [address]allos [address] [facility] [address] [place] [phone] Referring Orthopedics 06/11/20 [place] [address] [place] [address] Radiation Oncology 01/24/21 Angela Zhou LSW Financial Aid Coordinator Hematology/Oncology 03/20/22 Oriental Rug Stretcher Relationship Specialty Start Date End Date Breanne Whittington MD [address] [place] [address] PCP - General Family Medicine 12/17/20 Michael Ceballos [address] [place] [phone] Referring Orthopedics 06/11/20 [place] [address] [place] [address] Radiation Oncology 01/24/21 Angela Zhou LSW Financial Aid Coordinator Hematology/Oncology 03/20/22 Oriental Rug Stretcher Relationship Specialty Start Date End Date Breanne Whittington MD [address] [place] [address] PCP - General Family Medicine 12/17/20 Michael Ceballos [address] [place] [phone] Referring Orthopedics 06/11/20 [place] [address] [place] [address] Radiation Oncology 01/24/21 Angela Zhou LSW Financial Aid Coordinator Hematology/Oncology 03/20/22 Team Status: Active Member Role Status Dates Dr. Breanne Whittington MD Primary Care Provider Active Dr. Gary Shepherd MD Attending Provider Active Team Status: Active Member Role Status Dates Dr. Breanne Whittington MD Primary Care Provider Active Pedrito Mcfadden SUPERVISOR FURNACE PROCESS, SUPERVISOR FURNACE PROCESS-C Attending Provider Active Team Status: Inactive Member Role Status Dates Dr. Breanne Whittington MD Primary Care Provider Active Pedrito Mcfadden SUPERVISOR FURNACE PROCESS, SUPERVISOR FURNACE PROCESS-C Attending Provider, Referring Pro vider Active Oriental Rug Stretcher Relationship Specialty Start Date End Date Breanne Whittington MD [address] [place], [place] 480351 PCP - General Family Medicine 12/17/20 Michael Ceballos [address] [place] [phone] Referring Orthopedics 06/11/20 [place] [address] [place] [address] Radiation Oncology 01/24/21 Angela Zhou LSW Financial Aid Coordinator Hematology/Oncology 03/20/22 Oriental Rug Stretcher Relationship Specialty Start Date End Date Breanne Whittington MD [address] [place], [place] 383581 PCP - General Family Medicine 12/17/20 Michael Ceballos [address] [place] [phone] Referring Orthopedics 06/11/20 [place] [address] [facility] [place] [address] Radiation Oncology 01/24/21 Angela Zhou LSW Financial Aid Coordinator Hematology/Oncology 03/20/22 Oriental Rug Stretcher Relationship Specialty Start Date End Date Breanne Whittington MD [address] [place], [place] 446821 PCP - General Family Medicine 12/17/20 Michael Ceballos [address] [place] [phone] Referring Orthopedics 06/11/20 [place] [address] [place] [address] Radiation Oncology 01/24/21 Angela Zhou, [facility] Financial Aid Coordinator Hematology/Oncology 03/20/22 Oriental Rug Stretcher Relationship Specialty Start Date End Date Breanne Whittington MD [address] [place], [place] [address]32691 PCP - General Family Medicine 12/17/20 Michael Ceballos [address] [place] [address] Referring Orthopedics 06/11/20 [place] [address] [place] [address] Radiation Oncology 01/24/21 Angela Zhou [facility] Financial Aid Coordinator Hematology/Oncology 03/20/22 Oriental Rug Stretcher Relationship Specialty Start Date End Date Breanne Whittington MD [address] [place], [place] 171581 PCP - General Family Medicine 12/17/20 iMchael Ceballos [address] [facility] [address] [place] [phone] Referring Orthopedics 06/11/20 [place] [address] [place] [address] Radiation Oncology 01/24/21 Angela Zhou [facility] Financial Aid Coordinator Hematology/Oncology 03/20/22 Oriental Rug Stretcher Relationship Specialty Start Date End Date Breanne Whittington MD [address] [place], [place] 046851 PCP - General Family Medicine 12/17/20 Michael Ceballos [address] [place] [phone] Referring Orthopedics 06/11/20 [place] [address] [place] [address] Radiation Oncology 01/24/21 Angela Zhou [facility] Financial Aid Coordinator Hematology/Oncology 03/20/22 Oriental Rug Stretcher Relationship Specialty Start Date End Date Breanne Whittington MD [address] [place], [place] 968321 PCP - General Family Medicine 12/17/20 Michael Ceballos [address] [place] [phone] Referring Orthopedics 06/11/20 [place] [address] [place] [address] Radiation Oncology 01/24/21 Angela Zhou [facility] Financial Aid Coordinator Hematology/Oncology 03/20/22 Oriental Rug Stretcher Relationship Specialty Start Date End Date Breanne Whittington MD [address] [place], [place] 860541 PCP - General Family Medicine 12/17/20 Michael Ceballos [address] [place] [phone] Referring Orthopedics 06/11/20 [place] [address] [place] [address] Radiation Oncology 01/24/21 Angela Zhou LSW Financial Aid Coordinator Hematology/Oncology 03/20/22 Oriental Rug Stretcher Relationship Specialty Start Date End Date Breanne Whittington MD [address] [place], [place] 339141 PCP - General Family Medicine 12/17/20 Michael Ceballos [address] [place] [phone] Referring Orthopedics 06/11/20 [place] [address] [place] [address] Radiation Oncology 01/24/21 Angela Zhou LSW Financial Aid Coordinator Hematology/Oncology 03/20/22 Oriental Rug Stretcher Relationship Specialty Start Date End Date Breanne Whittington MD [address] [place] [address] PCP - General Family Medicine 12/17/20 Michael Ceballos [address] [place] [phone] Referring Orthopedics 06/11/20 [place] [address] [place] [address] Radiation Oncology 01/24/21 Angela Zhou [facility] Financial Aid Coordinator Hematology/Oncology 03/20/22 Oriental Rug Stretcher Relationship Specialty Start Date End Date Breanne Whittington MD [address] [place], [place] 281461 PCP - General Family Medicine 12/17/20 Michael Ceballos [address] [place] [phone] Referring Orthopedics 06/11/20 [place] [address] [place] [address] Radiation Oncology 01/24/21 Angela Zhou, [facility] Financial Aid Coordinator Hematology/Oncology 03/20/22 Oriental Rug Stretcher Relationship Specialty Start Date End Date Breanne Whittington MD [address] [place] [address] PCP - General Family Medicine 12/17/20 Michael Ceballos [address] [place] [phone] Referring Orthopedics 06/11/20 [place] [address] [place] [address] Radiation Oncology 01/24/21 Angela Zhou, [facility] Financial Aid Coordinator Hematology/Oncology 03/20/22 Oriental Rug Stretcher Relationship Specialty Start Date End Date Breanne Whittington MD [address] [place], [place] 673861 PCP - General Family Medicine 12/17/20 Michael Ceballos [address] [place] [phone] Referring Orthopedics 06/11/20 [place] [address] [place] [address] Radiation Oncology 01/24/21 Angela Zhou LSW Financial Aid Coordinator Hematology/Oncology 03/20/22 Oriental Rug Stretcher Relationship Specialty Start Date End Date Breanne Whittington MD [address] [place], [place] 260131 PCP - General Family Medicine 12/17/20 Michael Ceballos [address] [place] [phone] Referring Orthopedics 06/11/20 [place] [address] [place] [address] Radiation Oncology 01/24/21 Angela Zhou LSW Financial Aid Coordinator Hematology/Oncology 03/20/22 Oriental Rug Stretcher Relationship Specialty Start Date End Date Breanne Whittington MD [address] [place], [place] 591711 PCP - General Family Medicine 12/17/20 Michael Ceballos [address] [place] [phone] Referring Orthopedics 06/11/20 [place] [address] [place] [address] Radiation Oncology 01/24/21 Angela Zhou SENIOR PRODUCTION MANAGER Financial Aid Coordinator Hematology/Oncology 03/20/22 Oriental Rug Stretcher Relationship Specialty Start Date End Date Breanne Whittington MD [address] [place], [place] 648721 PCP - General Family Medicine 12/17/20 Michael Ceballos [address] [place] [phone] Referring Orthopedics 06/11/20 [place] [address] [place], [place] 5184[address] Radiation Oncology 01/24/21 Angela Zhou, [facility] Financial Aid Coordinator Hematology/Oncology 03/20/22 Oriental Rug Stretcher Relationship Specialty Start Date End Date Breanne Whittington MD [address] [place], [place] 285681 PCP - General Family Medicine 12/17/20 Michael Ceballos [address] [place] [phone] Referring Orthopedics 06/11/20 [place] [address] [place] [address] Radiation Oncology 01/24/21 Angela Zhou [facility] Financial Aid Coordinator Hematology/Oncology 03/20/22 Oriental Rug Stretcher Relationship Specialty Start Date End Date Breanne Whittington MD [address] [place], [place] 147491 PCP - General Family Medicine 12/17/20 Michael Ceballos [address] [place] [phone] Referring Orthopedics 06/11/20 [place] [address] [facility] [place] [address] Radiation Oncology 01/24/21 Angela Ayala, SENIOR PRODUCTION MANAGER Financial Aid Coordinator Hematology/Oncology 03/20/22 Oriental Rug Stretcher Relationship Specialty Start Date End Date Breanne Whittington MD [address] [place] [address] PCP - General Family Medicine 12/17/20 Michael Ceballos [address] [place] [phone] Referring Orthopedics 06/11/20 [place] [address] [facility] [place] [address] Radiation Oncology 01/24/21 Angela Ayala [facility] Financial Aid Coordinator Hematology/Oncology 03/20/22 Oriental Rug Stretcher Relationship Specialty Start Date End Date Breanne Whittington MD [address] [place] [address] PCP - General Family Medicine 12/17/20 Michael Ceballos [address] [place] [phone] Referring Orthopedics 06/11/20 [place] [address] [facility] [place] [address] Radiation Oncology 01/24/21 Angela Ayala SENIOR PRODUCTION MANAGER Financial Aid Coordinator Hematology/Oncology 03/20/22 Oriental Rug Stretcher Relationship Specialty Start Date End Date Breanne Whittington MD [address] [place], [place] 878881 PCP - General Family Medicine 12/17/20 Michael Ceballos [address] [place] [phone] Referring Orthopedics 06/11/20 [place] [address] [place] [address] Radiation Oncology 01/24/21 Angela Ayala, [facility] Financial Aid Coordinator Hematology/Oncology 03/20/22 Oriental Rug Stretcher Relationship Specialty Start Date End Date Breanne Whittington MD [address] [place] [address] PCP - General Family Medicine 12/17/20 Michael Ceballos [address] [place] [phone] Referring Orthopedics 06/11/20 [place] [address] [place] [address] Radiation Oncology 01/24/21 Angela Ayala, [facility] Financial Aid Coordinator Hematology/Oncology 03/20/22 Oriental Rug Stretcher Relationship Specialty Start Date End Date Breanne Whittington MD [address] [place], [place] 943351 PCP - General Family Medicine 12/17/20 Michael Ceballos [address] [place] [phone] Referring Orthopedics 06/11/20 [place] [address] [place] [address] Radiation Oncology 01/24/21 Angela Ayala, [facility] Financial Aid Coordinator Hematology/Oncology 03/20/22 Oriental Rug Stretcher Relationship Specialty Start Date End Date Breanne Whittington MD [address] [place], [place] 868141 PCP - General Family Medicine 12/17/20 Michael Ceballos [address] [place] [address] Referring Orthopedics 06/11/20 [place] [address] [place] [address] Radiation Oncology 01/24/21 Angela Ayala, [facility] Financial Aid Coordinator Hematology/Oncology 03/20/22 Oriental Rug Stretcher Relationship Specialty Start Date End Date Breanne Whittington MD [address] [place] [address] PCP - General Family Medicine 12/17/20 Michael Ceballos [address] [place] [phone] Referring Orthopedics 06/11/20 [place] [address] [place] [address] Radiation Oncology 01/24/21 Angela Ayala, [facility] Financial Aid Coordinator Hematology/Oncology 03/20/22 Oriental Rug Stretcher Relationship Specialty Start Date End Date Breanne Whittington MD [address] [place], [place] 223001 PCP - General Family Medicine 12/17/20 Michael C[address]allos [address] [place] [phone] Referring Orthopedics 06/11/20 [place] [address] [place] [address] Radiation Oncology 01/24/21 Angela Ayala LSW Financial Aid Coordinator Hematology/Oncology 03/20/22 Claudia Sorto APRN.FARMWORKER VEGETABLE [address] [place] [address] Insurance Consultant Family Medicine 04/21/24 Fouzia Amado MERCHANT BANKER.FARMWORKER VEGETABLE [address] [place] [address] Insurance Consultant Family Medicine 04/21/24 Oriental Rug Stretcher Relationship Specialty Start Date End Date Breanne Whittington MD [address] [place] [address] PCP - General Family Medicine 12/17/20 Michael [address]allos [address] [phone] Referring Orthopedics 06/11/20 [place] [address] [place] [address] Radiation Oncology 01/24/21 Angela Ayala LSW Financial Aid Coordinator Hematology/Oncology 03/20/22 Claudia Sorto, MERCHANT BANKER.FARMWORKER VEGETABLE [address] [place] [address] Insurance Consultant Family Medicine 04/21/24 Fouzia Amado APRN.FARMWORKER VEGETABLE [address] [place] [address] Insurance Consultant Family Medicine 04/21/24 Oriental Rug Stretcher Relationship Specialty Start Date End Date Breanne Whittington MD [address] [place], [place] 940921 PCP - General Family Medicine 12/17/20 Michael Ceballos [address] [facility] [address] [place] [address]8335 Referring Orthopedics 06/11/20 [place] [address] [place] [address] Radiation Oncology 01/24/21 Angela Ayala LSW Financial Aid Coordinator Hematology/Oncology 03/20/22 Claudia Sorto APRN.FARMWORKER VEGETABLE [address] [place] [address] Insurance Consultant Family Medicine 04/21/24 Fouzia Amado APRN.FARMWORKER VEGETABLE [address] [place], [place] 216191 Insurance Consultant Family Medicine 04/21/24 Oriental Rug Stretcher Relationship Specialty Start Date End Date Breanne Whittington MD [address] [place] [address] PCP - General Family Medicine 12/17/20 Michael Ceballos [address] [facility] [address] [place] [phone] Referring Orthopedics 06/11/20 [place] [address] [place] [address] Radiation Oncology 01/24/21 Angela Ayala LSW Financial Aid Coordinator Hematology/Oncology 03/20/22 Claudia Sorto APRN.FARMWORKER VEGETABLE [address] [place], [place] [phone] Insurance Consultant Family [facility] 04/21/24 Fouzia Amado APRN.FARMWORKER VEGETABLE [address] [place], [place] [id number] [facility] 04/21/24 Oriental Rug Stretcher Relationship Specialty Start Date End Date Breanne Whittington MD [address] [place], [place] 15912691 PCP - General Family Medicine 12/17/20 Michael Ceballos [address] [facility] [address] [facility] [address] [place] [address] Referring Orthopedics 06/11/20 [place] [address] [place] [address] Radiation Oncology 01/24/21 Angela Ayala LSW Financial Aid Coordinator Hematology/Oncology 03/20/22 Claudia Sorto, HONEY.FARMWORKER VEGETABLE [address] [place] [address] Insurance Consultant Family Medicine 04/21/24 Fouzia Amado APRN.FARMWORKER VEGETABLE [address] [place] [address] Insurance Consultant [facility] 04/21/24 Oriental Rug Stretcher Relationship Specialty Start Date End Date Breanne Whittington MD [address] [place], [place] 547671 PCP - General Family Medicine 12/17/20 Michael Ceballos [address] [place] [phone] Referring Orthopedics 06/11/20 [place] [address] [place] [address] Radiation Oncology 01/24/21 Angela Ayala LSW Financial Aid Coordinator Hematology/Oncology 03/20/22 Claudia Sorto, MERCHANT BANKER.FARMWORKER VEGETABLE [address] [place] [address] [facility] 04/21/24 Fouzia Amado, MERCHANT BANKER.FARMWORKER VEGETABLE [address] [place] [address] Insurance Consultant [facility] 04/21/24 Oriental Rug Stretcher Relationship Specialty Start Date End Date Breanne Whittington MD [address] [place] [address] PCP - General Family Medicine 12/17/20 Michael Ceballos [address] [place] [address]8477333-8335 Referring Orthopedics 06/11/20 [place] [address] [place] [address] Radiation Oncology 01/24/21 Angela Ayala LSW Financial Aid Coordinator Hematology/Oncology 03/20/22 Claudia Sorto APRN.FARMWORKER [employer]GETABLE [address] [place], [place] [phone] Insurance Consultant Family Medicine 04/21/24 Fouzia Amado MERCHANT BANKER.FARMWORKER VEGETABLE [address] [place], [place] 725021 Insurance Consultant Family Medicine 04/21/24 Oriental Rug Stretcher Relationship Specialty Start Date End Date Breanne Whittington MD [address] [place], [place] 45759691 PCP - General Family Medicine 12/17/20 Michael Ceballos [address] [facility] [address] [address] Referring Orthopedics 06/11/20 [place] [address] [place] [address] Radiation Oncology 01/24/21 Angela Ayala LSW Financial Aid Coordinator Hematology/Oncology 03/20/22 Claudia Sorto APRN.FARMWORKER [employer]GET[employer] [address] [place], [place] 223571 Insurance Consultant Family Medicine 04/21/24 Fouzia Amado MERCHANT BANKER.FARMWORKER [employer]GETABLE [address] [place], [place] [phone] Insurance Consultant Family Medicine 04/21/24 Oriental Rug Stretcher Relationship Specialty Start Date End Date Breanne Whittington MD [address] [place], [place] 502961 PCP - General Family Medicine 12/17/20 Michael Ceballos [address] [place] [address] Referring Orthopedics 06/11/20 [place] [address] [address] [place], [place] [id number] Radiation Oncology 01/24/21 Angela Ayala LSW Financial Aid Coordinator Hematology/Oncology 03/20/22 Claudia Sorto, HONEY.FARMWORKER VEGETABLE [address] [place] [address] Insurance Consultant Family Medicine 04/21/24 Fouzia Amado MERCHANT BANKER.FARMWORKER VEGETABLE [address] [place], [place] [phone] Insurance Consultant Family Medicine 04/21/24 Oriental Rug Stretcher Relationship Specialty Start Date End Date Breanne Whittington MD [address] [place] [address] PCP - General Family Medicine 12/17/20 Michael Ceballos [address] [place] [address] Referring Orthopedics 06/11/20 [place] [address] [place] [address] Radiation Oncology 01/24/21 Angela Ayala LSW Financial Aid Coordinator Hematology/Oncology 03/20/22 Claudia Sorto APRN.FARMWORKER VEGETABLE [address] [place], [place] 285421 Insurance Consultant Family Medicine 04/21/24 Fouzia Amado APRN.FARMWORKER VEGETABLE [address] [place], [place] 257[address] Insurance Consultant Family Medicine 04/21/24 Oriental Rug Stretcher Relationship Specialty Start Date End Date Breanne Whittington MD [address] [place], [place] 136991 PCP - General Family Medicine 12/17/20 Michael Ceballos [address] [facility] [address] [phone] Referring Orthopedics 06/11/20 [place] [address] [place], [place] [phone] Radiation Oncology 01/24/21 Angela Ayala [facility] Financial Aid Coordinator Hematology/Oncology 03/20/22 Claudia Sorto APRN.FARMWORKER VEGETABLE [address] [place] [address] Insurance Consultant Family Medicine 04/21/24 Fouzia Amado APRN.FARMWORKER VEGETABLE [address] [place], [place] [phone] Insurance Consultant Family Medicine 04/21/24 Oriental Rug Stretcher Relationship Specialty Start Date End Date Breanne Whittington MD [address] [place], [place] [phone] PCP - General Family Medicine 12/17/20 Michael Ceballos [address] [place] [phone] Referring Orthopedics 06/11/20 [place] [address] [place] [address] Radiation Oncology 01/24/21 Angela Ayala, [facility] Financial Aid Coordinator Hematology/Oncology 03/20/22 Claudia Sorto APRN.FARMWORKER VEGETABLE [address] [place], [place] 234821 [facility] 04/21/24 Fouzia Amado APRN.FARMWORKER VEGETABLE [address] [place], [place] [phone] [facility] 04/21/24 Oriental Rug Stretcher Relationship Specialty Start Date End Date Breanne Whittington MD [address] [place], [place] [id number] PCP - General Family Medicine 12/17/20 Michael Ceballos [address] [place] [phone] Referring Orthopedics 06/11/20 [place] [address] [place] [address] Radiation Oncology 01/24/21 Angela Ayala, [facility] Financial Aid Coordinator Hematology/Oncology 03/20/22 Claudia Sorto APRN.FARMWORKER VEGETABLE [address] [place] [address] [facility] 04/21/24 Fouzia Amado MERCHANT BANKER.FARMWORKER VEGETABLE [address] [place], [place] 047091 [facility] 04/21/24 Oriental Rug Stretcher Relationship Specialty Start Date End Date Breanne Whittington MD [address] [place], [place] 602641 PCP - General Family Medicine 12/17/20 Michael Ceballos [address] [place] [address] Referring Orthopedics 06/11/20 [place] [address] [place] [address] Radiation Oncology 01/24/21 Angela Ayala LSW Financial Aid Coordinator Hematology/Oncology 03/20/22 Claudia Sorto, MERCHANT BANKER.FARMWORKER VEGETABLE [address] [place] [address] [facility] 04/21/24 Fouzia Amado, MERCHANT BANKER.FARMWORKER VEGETABLE [address] [place], [place] 206581 [facility] 04/21/24 Oriental Rug Stretcher Relationship Specialty Start Date End Date Breanne Whittington MD [address] [place], [place] 202151 PCP - General Family Medicine 12/17/20 Michael Ceballos [address] [place] [address] Referring Orthopedics 06/11/20 [place] [address] [place] [address] Radiation Oncology 01/24/21 Angela Ayala, SENIOR PRODUCTION MANAGER Financial Aid Coordinator Hematology/Oncology 03/20/22 Claudia Sorto APRN.FARMWORKER VEGETABLE [address] [place], [place] [phone] Insurance Consultant Family [facility] 04/21/24 Fouzia Amado APRN.FARMWORKER VEGETABLE [address] [place], [place] [phone] Insurance Consultant [facility] 04/21/24 Oriental Rug Stretcher Relationship Specialty Start Date End Date Breanne Whittington MD [address] [place], [place] [id number] PCP - General Family Medicine 12/17/20 Michael Ceballos [address] [phone] Referring Orthopedics 06/11/20 [place] [address] [place] [address] Radiation Oncology 01/24/21 Angela Ayala, SENIOR PRODUCTION MANAGER Financial Aid Coordinator Hematology/Oncology 03/20/22 Claudia Sorto APRN.FARMWORKER VEGETABLE [address] [place], [place] [phone] [facility] 04/21/24 Fouzia Amado APRN.FARMWORKER VEGETABLE [address] [place], [place] [phone] Insurance Consultant Family [facility] 04/21/24 Oriental Rug Stretcher Relationship Specialty Start Date End Date Breanne Whittington MD [address] [place], [place] 750741 PCP - General Family Medicine 12/17/20 Michael Ceballos [address] [place] [address] Referring Orthopedics 06/11/20 [place] [address] [place], [place] [phone] Radiation Oncology 01/24/21 Angela Ayala LSW Financial Aid Coordinator Hematology/Oncology 03/20/22 Claudia Sorto, HONEY.FARMWORKER VEGETABLE [address] [place] [address] Insurance Consultant [facility] 04/21/24 Fouzia Amado MERCHANT BANKER.FARMWORKER VEGETABLE [address] [place] [address] [facility] 04/21/24 Oriental Rug Stretcher Relationship Specialty Start Date End Date Breanne Whittington MD [address] [place] [address] PCP - General Family Medicine 12/17/20 Michael Ceballos [address] [place] [address] Referring Orthopedics 06/11/20 [place] [address] [address] [place], [place] [phone] Radiation Oncology 01/24/21 Angela Ayala, [facility] Financial Aid Coordinator Hematology/Oncology 03/20/22 Cluadia Sorto APRN.FARMWORKER VEGETABLE [address] [place], [place] [phone] Insurance Consultant Family Medicine 04/21/24 Fouzia Amado APRN.FARMWORKER VEGETABLE [address] [place], [place] 538521 Insurance Consultant Family Medicine 04/21/24 Oriental Rug Stretcher Relationship Specialty Start Date End Date Breanne Whittington MD [address] [place], [place] [phone] PCP - General Family Medicine 12/17/20 Michael Ceballos [address] [phone] Referring Orthopedics 06/11/20 [place] [address] [place] [address] Radiation Oncology 01/24/21 Angela Ayala, [facility] Financial Aid Coordinator Hematology/Oncology 03/20/22 Claudia Sorto APRN.FARMWORKER VEGETABLE [address] [place] [address] Insurance Consultant Family Medicine 04/21/24 Fouzia Amado APRN.FARMWORKER VEGETABLE [address] [place], [place] [phone] Insurance Consultant Family Medicine 04/21/24 Oriental Rug Stretcher Relationship Specialty Start Date End Date Breanne Whittington MD [address] [place], [place] [phone] PCP - General Family Medicine 12/17/20 Michael Ceballos [address] [place] [address] Referring Orthopedics 06/11/20 [place] [address] [place] [address] Radiation Oncology 01/24/21 Angela Ayala, SENIOR PRODUCTION MANAGER Financial Aid Coordinator Hematology/Oncology 03/20/22 Claudia Sorto, HONEY.FARMWORKER VEGETABLE [address] [place] [address] Insurance Consultant Family Medicine 04/21/24 Fouzia Amado MERCHANT BANKER.FARMWORKER VEGETABLE [address] [place] [address] Insurance Consultant Family [facility] 04/21/24 Oriental Rug Stretcher Relationship Specialty Start Date End Date Breanne Whittington MD [address] [place], [place] 432761 PCP - General Family Medicine 12/17/20 Michael Ceballos [address] [facility] [address] [place] [phone] Referring Orthopedics 06/11/20 [place] [address] [place] [address] Radiation Oncology 01/24/21 Angela Ayala, SENIOR PRODUCTION MANAGER Financial Aid Coordinator Hematology/Oncology 03/20/22 Claudia Sorto, MERCHANT BANKER.FARMWORKER VEGETABLE [address] [place] [address] Insurance Consultant Family Medicine 04/21/24 Fouzia Amado MERCHANT BANKER.FARMWORKER VEGETABLE [address] [facility] [address] Insurance Consultant Family [facility] 04/21/24 Oriental Rug Stretcher Relationship Specialty Start Date End Date Breanne Whittington MD [address] [place] [address] PCP - General Family Medicine 12/17/20 Michael Ceballos [address] [place] [phone] Referring Orthopedics 06/11/20 [place] [address] [place] [address] Radiation Oncology 01/24/21 Angela Ayala LSW Financial Aid Coordinator Hematology/Oncology 03/20/22 Claudia Sorto, HONEY.FARMWORKER VEGETABLE [address] [place] [address] Insurance Consultant Family [facility] 04/21/24 Fouzia Amado MERCHANT BANKER.FARMWORKER VEGETABLE [address] [facility] [address] Insurance Consultant Family [facility] 04/21/24 Oriental Rug Stretcher Relationship Specialty Start Date End Date Breanne Whittington MD [address] [place], [place] [address] PCP - General Family Medicine 12/17/20 Michael Ceballos [address] [place] [phone] Referring Orthopedics 06/11/20 [place] [address] [place] [address] Radiation Oncology 01/24/21 Angela Ayala LSW Financial Aid Coordinator Hematology/Oncology 03/20/22 Claudia Sorto APRN.FARMWORKER VEGETABLE [address] [place], [place] 595001 Insurance Consultant Family Medicine 04/21/24 Fouzia mAado APRN.FARMWORKER VEGETABLE [address] [place], [place] [phone] Insurance Consultant Family Medicine 04/21/24 Oriental Rug Stretcher Relationship Specialty Start Date End Date Breanne Whittington MD [address] [place], [place] [id number] PCP - General Family Medicine 12/17/20 Michael Ceballos [address] [phone] Referring Orthopedics 06/11/20 [place] [address] [place] [address] Radiation Oncology 01/24/21 Angela Ayala LSW Financial Aid Coordinator Hematology/Oncology 03/20/22 Claudia Sorto APRN.FARMWORKER VEGETABLE [address] [place] [address] Insurance Consultant Family Medicine 04/21/24 Fouzia Amado APRN.FARMWORKER VEGETABLE [address] [place] [address] Insurance Consultant Family Medicine 04/21/24 Reason for Visit (unrecogniz ed section and content) Reason Comments Seizure Reason Comments Radiology CT Specialty Diagnoses / Procedures Referred By Virginia t Referred To Contact CT IMAGING Diagnoses Meningioma (HCC) Brain edema (HCC) Seizure (HCC) Procedures CT BRAIN WO IVCON CT HEAD/BRAIN W/O CONTRAST MATERIAL Yancy Centeno MD [address] [place] [address] Ct Imaging Referral ID Status Reason Start Date Expiration Date V isits Requested Visits Authorized [id number] Closed Auto-Generate d Referral 08/23/2021 09/22/2022 1 1 Reason Comments Patient Update Reason Comments CT Head scheduling Reason Comments Brain Tumor Seizures Reason Onset Date Comments Refill Request 09/11/2021 Reason Comments Results Reason Comments EKG Specialty Diagnoses / Procedures [facility] Diagnoses Recurrent seizures (HCC) Procedures ECG COMPLETE ECG ROUTINE ECG W/LEAST 12 LDS W/I&R Catarino Camacho MD, PhD [address] [place] [address] [facility] Start [address] [place] [address] Referral ID Status Reason Start Date Expiration Date V isits Requested Visits Authorized [id number] Closed Auto-Generate d Referral 09/26/2021 05/13/2022 1 1 Reason Comments Seizures Reason Comments PT Eval PT Discharge Specialty Diagnoses / Procedures [facility] Referred To Contact PHYSICAL THERAPY Diagnoses Meningioma (HCC) Seizure (HCC) Radionecrosis Weakness Procedures CONSULT TO PHYSICAL THERAPY PHYSICAL THERAPY EVALUATION HIGH COMPLEX 45 MINS THERAPEUTIC EXERCISES RE, EA 15 MIN. Yancy Centeno MD [address] [place] [address] Pt [facility] [place] [address] [place] [address] Referral ID Status Reason Start Date Expiration Date Visits Requested Visits Authorized [id number] Authorized Auto-Generat ed Referral 05/14/2021 05/13/2022 40 40 Reason Comments New Patient ED,medication issue Reason Comments Sleep Apnea Follow up Reason Comments Brain Tumor Reason Comments Rx Clarification Request Form Reason Comments Yearly Exam Reason Comments Patient Question Reason Comments New Patient Pain Specialty Diagnoses / Procedures Referred By Contac t Referred To Contact Podiatry Diagnoses Foot pain, right Procedures CONSULT TO PODIATRY OFFICE/OUTPATIENT NEW HIGH MDM 60-74 MINUTES Breanne Whittington MD [address] [place] [address] Referral ID Status Reason Start Date Expiration Date V isits Requested Visits Authorized [id number] Closed PCP Requested Referral 11/29/2021 11/29/2022 1 1 Specialty Diagnoses / Procedures Referred By Contac t Referred To Contact MR IMAGING Diagnoses Benign neoplasm of meninges (HCC) Meningioma (HCC) Procedures MRI BRAIN WO/W IVCON MRI BRAIN BRAIN STEM W/O W/CONTRAST MATERIAL Trev Sutton MD [address] [place] [address] Mr Imaging Referral ID Status Reason Start Date Expiration Date V isits Requested Visits Authorized [id number] Closed Auto-Generate d Referral 07/25/2021 01/26/2022 1 1 Reason Comments +COVID- change appt to VV Reason Comments Covid Follow Up Reason Comments Brain Tumor Reason Comments PA approved for Nayzilam spray Reason Comments OT EVAL Specialty Diagnoses / Procedures Referred By Contac t Referred To Contact [facility] Diagnoses Meningioma (HCC) Seizure (HCC) Procedures CONSULT TO FOOD SAFETY SCIENTIST OCCUPATIONAL THERAPY EVAL HIGH COMPLEX 60 MINS Yancy Centeno MD [address] [place] [address] [facility] Start [address] [place] [address] Referral ID Status Reason Start Date Expiration Date Visits Requested Visits Authorized [id number] Authorized Auto-Generat ed Referral 05/14/2021 05/13/2022 99 99 Specialty Diagnoses / Procedures Referred By Contac t Referred To Contact Diagnoses Brain edema (HCC) Procedures INJ., ZIRABEV, 10 MG Yancy Centeno MD [address] [place] [address] [facility] [place] [address] [place] [address] Referral ID Status Reason Start Date Expiration Date V isits Requested Visits Authorized [id number] Authorized 02/17/2022 05/13/2022 99 99 Reason Comments AVASTIN cycle #1 completed 02/27/22 Reason Comments Cardiology records- OSH- scanned into ep ir Reason Comments Reason Comments Avastin infusion #2 completed Reason Comments Established Patient Reason Comments Benefits Investigation Reason Comments Follow Up Reason Comments Avastin infusion #3 completed Reason Onset Date Comments Refill Request 04/09/2022 Reason Comments DA week of July 17 Reason Comments Follow Up Reason Comments DA 08/02/22- change appt please Reason Comments Lacosamide RX Reason Onset Date Comments Refill Request 08/17/2022 Reason Comments Referral Request Reason Onset Date Comments Refill Request 09/11/2022 Reason Comments PAP Supply Fax Reason Comments PAP Therapy Follow Up DOWNLOAD Reason Comments PAP Therapy Fax Reason Comments Consult Family history of co marleny cancer Specialty Diagnoses / Procedures Referred By Virginia monsalve Referred To Contact General Surgery Diagnoses Family history of colon cancer Procedures CONSULT TO GENERAL SURGERY OFFICE/OUTPATIENT NEW HIGH MDM 60-74 MINUTES Breanne Whittingtno MD [address] [place] [address] Referral ID Status Reason Start Date Expiration Date V isits Requested Visits Authorized [id number] Closed PCP Requested Referral 11/28/2022 11/28/2023 1 1 Reason Comments Appointment Reason Comments Established Patient Pain Reason Comments Established Patient Follow Up Pain Reason Comments New Patient Specialty Diagnoses / Procedures Referred By Virginia monsalve Referred To Contact Neurooncology / Neurosurgery Neuro Oncology Diagnoses meningioma Procedures NEW NEURO ONCOLOGY Keiry David MD [address] [place] [address] Napoleon Pappas MD [address] [place] [address] Referral ID Status Reason Start Date Expiration Date V isits Requested Visits Authorized [id number] New Request 01/02/2023 01/27/2024 1 1 Specialty Diagnoses / Procedures Referred By Contac t Referred To Contact MR IMAGING Diagnoses Meningioma (HCC) Procedures MRI BRAIN WO/W IVCON MRI BRAIN BRAIN STEM W/O W/CONTRAST MATERIAL Yancy Centeno MD [address] [place] [address] Mr Imaging [place] [address] Referral ID Status Reason Start Date Expiration Date V isits Requested Visits Authorized [id number] Closed Auto-Generate d Referral 01/16/2023 05/13/2023 1 1 Reason Comments Radiology US Specialty Diagnoses / Procedures Referred By Contac t Referred To Contact US IMAGING Diagnoses Neck mass Procedures US HEAD/NECK SOFT TISSUE OTHER US SOFT TISSUE HEAD & NECK REAL TIME IMGE Breanne Trejo MD [facility] [place] [address] Us Imaging [place] [address] Referral ID Status Reason Start Date Expiration Date V isits Requested Visits Authorized [id number] Closed Auto-Generate d Referral 03/31/2022 04/30/2023 1 1 Specialty Diagnoses / Procedures Referred By Contac t Referred To Contact MR IMAGING Diagnoses 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) Procedures MRI BRAIN WO/W IVCON MRI BRAIN BRAIN STEM W/O W/CONTRAST MATERIAL Yancy Centeno MD [address] [place] [address] Mr Imaging [place] [address] Referral ID Status Reason Start Date Expiration Date V isits Requested Visits Authorized [id number] Closed Auto-Generate d Referral 07/31/2022 07/31/2022 1 1 Referral ID Status Reason Start Date Expiration Date V isits Requested Visits Authorized [id number] Closed Auto-Generate d Referral 02/09/2022 04/21/2022 1 1 Reason Comments Follow Up Reason Comments Follow-up Specialty Diagnoses / Procedures Referred By Contac t Referred To Contact Neurologic Surgery Diagnoses Meningioma Galdamez, Evelia S, 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 [place] [address] Referral ID Status Reason Start Date Expiration Date V isits Requested Visits Authorized [id number] New Request 02/23/2023 03/19/2024 1 1 Reason Comments Follow Up Had irregular heart rthym and PCP recommended appt Reason Comments Follow Up Sleep Apnea Specialty Diagnoses / Procedures [facility] Referred To Contact Diagnoses MELL on CPAP Procedures PROVIDER ORDERED FOLLOW UP OFFICE/OUTPATIENT NEW HIGH MDM 60-74 MINUTES Miguelangel Spence, MERCHANT BANKER.FARMWORKER VEGETABLE [address] [place] [address] Referral ID Status Reason Start Date Expiration Date V isits Requested Visits Authorized [id number] Closed PCP Requested Referral 04/18/2023 03/18/2024 1 1 Reason Comments requesting to orange picker machine operator disk that was left Reason Comments Medication Update Reason Comments Physical Therapy PT Discharge Specialty Diagnoses / Procedures [facility] Referred To Contact [facility] Diagnoses Bursitis of right foot Foot pain, right Procedures CONSULT TO PHYSICAL THERAPY PHYSICAL THERAPY EVALUATION HIGH COMPLEX 45 MINS Augustin Carrillo [address] [place] [address] [facility] [address] [address] Referral ID Status Reason Start Date Expiration Date Visits Requested Visits Authorized [id number] Authorized Auto-Generat ed Referral 06/14/2023 05/13/2024 99 99 Specialty Diagnoses / Procedures [facility] Referred To Contact MR IMAGING Diagnoses Meningioma (HCC) Glioblastoma (HCC) Radionecrosis Procedures MRI BRAIN WO/W IVCON MRI BRAIN BRAIN STEM W/O W/CONTRAST MATERIAL Yancy Centeno MD [address] [address] Mr Imaging [facility] Referral ID Status Reason Start Date Expiration Date V isits Requested Visits Authorized [id number] Closed Auto-Generate d Referral 02/20/2023 03/21/2024 1 1 Reason Comments 6 Month Exam Reason Comments Orders Specialty Diagnoses / Procedures Referred By Contac t Referred To Contact Diagnoses Meningioma (HCC) Brain edema (HCC) Seizure (HCC) Procedures CONSULT TO WELLNESS PHYSICIAN OFFICE/OUTPATIENT [facility] MDM 60 MINUTES Breanne Whittington MD [address] [place] [address] Referral ID Status Reason Start Date Expiration Date V isits Requested Visits Authorized [id number] Closed PCP Requested Referral 10/31/2023 10/30/2024 1 1 Reason Comments Consult Screening for colon cancer Specialty Diagnoses / Procedures Referred By Contac t Referred To Contact General Surgery / GENERAL SURGERY Diagnoses History of colonic polyps Procedures CONSULT TO GENERAL SURGERY OFFICE/OUTPATIENT [facility] MDM 60 MINUTES Fouzia Amado APRN.CNP [address] [place] [address] [facility] [address] [place] [address] Referral ID Status Reason Start Date Expiration Date V isits Requested Visits Authorized [id number] Closed PCP Requested Referral Financial Clearance Required - Self Pay 11/05/2023 11/04/2024 1 1 Reason Onset Date Comments Refill Request 02/27/2024 Reason Comments Waitlist Maintenance Reason Onset Date Comments raSH 03/31/2024 Reason Comments tic bite Reason Comments Cough Started 03/20/24. Lindy p cough, productive URI Head congestion Reason Comments 6 Month Exam Reason Onset Date Comments Refill Request 05/22/2024 Reason Comments Patient Question Re: flu shot and lucas vated AST Reason Onset Date Comments Refill Request 06/25/2024 Reason Comments DA 2 weeks or best Reason Comments 6 Month Exam Right leg weakness/n umbness. ? About kidney functionPain between shoulder blades with deep breath. Reason Comments New Patient Transferring from [facility], patient has questions Reason Comments Established Patient Follow Up FOR RECORDS PERTAINING TO PATIENTS WHO ARE OR HAVE BEEN ENROLLED IN A CHEMICAL DEPENDENCY/SUBSTANCEABUSE PROGRAM, SOME INFORMATION MAY BE OMITTED. This clinical summary was aggregated from multiple sources. Caution should be exercised in using it in the provision of clinical care. This summary normalizes information from multiple sources, and as a consequence, information in this document may materially change the coding, format and clinical context of patient data. In addition, data may be omitted in some cases. CLINICAL DECISIONS SHOULD BE BASED ON THE PRIMARY CLINICAL RECORDS. [facility] [employer]. provides no warranty or guarantee of the accuracy or completeness of information in this document.
--- NOTE | 2025-05-01 15:22 | STRESSREP ---
Stress Test Report Exercise myocardial perfusion stress test. Date Test Performed: [05/01/2025] [65]-year-old [male] with a history of [coronary artery status post PCI, with exertional shoulder pain]. Stress protocol: Resting EKG demonstrates [sinus bradycardia, normal intervals, no significant ST or T wave abnormalities at baseline with a rate of [56] bpm. Resting blood pressure is 124/74 mmHg. The patient exercised according to the regular Eric protocol for a total duration of [10 minutes 34 seconds] attaining a maximum heart rate of [129] bpm which was [84]% of maximum predicted heart rate; the maximum workload was [13.4] metabolic equivalents. At rest there were no ST or T wave changes noted to suggest ischemia. During stages 3 and 4 of the Eric protocol, patient developed horizontal/downsloping ST depressions in the inferior leads, as well as V5 and V6, which meet criteria for ischemia. ST depression was 3.5 millimeters in V6. Patient was also noted to demonstrate left shoulder pain during ST depressions. Test was terminated due to intermittent chest pain that promptly resolved and noted ST depressions. The peak blood pressure was [144/70] mmHg. Rate-pressure product was [65154]. Myocardial perfusion protocol. [11.8 ] mCi of technetium 99m sestamibi was injected at rest. The patient exercised according to regular Eric protocol for total duration of [10 minutes 34 seconds] and at peak exercise [ 34.8] mCi of technetium 99m sestamibi was injected stress images were obtained stress and rest images were reconstructed in comparing the short axis vertical long and horizontal long axis. Gated images were also obtained. Perfusion SPECT analysis: Significant inferior wall artifact on rest imaging from increased GI uptake, which limits assessment. Review of the stress images demonstrate increased or similar uptake of tracer noted in all areas of the myocardium compared to rest imaging. No areas of reversibility are noted to suggest ischemia, and no findings consistent with previous infarction are noted. Ejection fraction is 63% with concordant wall motion. Gated SPECT analysis: The gated ejection fraction is [63]%. Conclusion: Treadmill stress showed electrocardiographic findings of ischemia, with symptoms correlating with ST depression above. Myocardial perfusion imaging did not show evidence of ischemia or scar Discordant findings between stress and perfusion imaging
== END | disposition home or self-care (01) ==
LOC: CVS 07:02
PROVIDERS: PCP Family Medicine; Referring Provider Internal Medicine Cardiovascular Disease; Visit Provider Internal Medicine Cardiovascular Disease
DX: I21.09 ST elevation (STEMI) myocardial infarction involving other coronary artery of anterior wall (principal); Z95.5 Presence of coronary angioplasty implant and graft
CPT/HCPCS: 78452; 93017; A9500